=== PATIENT | female | born 1985 | race Caucasian/White ===

== ENCOUNTER 2016-10-10 12:23 | Emergency (ER) | payer SELFPAY ==
[~2016-10-10] VITALS: Ht 154.9 cm; Wt 110.2 kg
[~2016-10-10 12:23] MED LIST: ABILIFY10 MG PO; ACETAMINOPHEN500 M3 PO; AMBIEN 10MG TAB10 MG; AUGMENTIN1 TA1 PO; AUGMENTIN1 TA2 PO; AZITHROMYCIN250 MG PO; BUSPAR 10MG TAB10 MG PO; CIPRO 500MG TA500 MG PO; CIPRO250 MG PO; CLARITHROMYCIN500 MG PO; CLONAZEPAM0.5 M1 PO; DARVOCET-N 1001 EACH PO; DOXYCYCLINE MO100 MG PO; ERY-TAB333 MG PO; FLEXERIL10 MG PO; FLOMAX 0.4MG C0.4 MG PO; FLOMAX0.4 MG PO; HYDROCHLOROTH12.5 M1 PO; HYDROCHLOROTHIA25 M1 PO; HYDROCODONE-APA1 TA1 PO; IBU800 MG PO; IBUPROFEN600 MG PO; KEFLEX 500MG.500 MG PO; KLONOPIN 0.5MG0.5 MG PO; KLONOPIN1 MG PO; LEADER OMEPRAZO20 MG PO; LINDANE TP; LISINOPRIL10 MG PO; LODINE200 MG PO; LORTAB 5/500 501 TAB PO; MACROBID 100MG100 M1 PO; MACROBID 100MG100 MG PO; MACROBID100 M3 PO; MACRODANTIN100 MG PO; MOBIC7.5 MG PO; MOTRIN600 MG PO; NITROFURANTOIN100 M2 PO; NORCO 325 MG-101 TAB PO; NORCO 325 MG-51 TAB PO; PAXIL40 MG PO; PERCOCET 325 MG1 TA3 PO; PERCOCET 5/3251 EACH PO; PERCOCET1 TA1 PO; PERCOCET1 TAB PO; PERCOGESIC EXTR1 TAB PO; PERCOGESIC1 TAB PO; PHENERGAN 25MG.25 M1 PO; PHENERGAN 25MG.25 MG; PHENERGAN25 M3 PO; PROMETHAZINE 2525 MG PR; PROTONIX 40MG T40 MG PO; PROZAC40 MG PO; PYRIDIUM 200MG200 MG PO; PYRIDIUM100 M2 PO; PYRIDIUM200 M2 PO; REMERON30 MG PO; REMERON45 MG PO; SEROQUEL 100MG100 MG PO; TAMSULOSIN HCL0.4 MG PO; TESSALON PERLE100 MG PO; TOPAMAX25 MG PO; TRAMADOL 50MG T50 MG PO; TYLENOL W/CODEI1 TA2 PO; Tramadol HCl50 MG PO; XANAX 0.5MG TA0.5 MG PO; XANAX 1MG TABLET1 MG PO; ZANTAC 150150 MG PO; ZITHROMAX 250M250 MG PO; ZITHROMAX Z PA250 MG PO
--- OUTSIDE RECORDS SUMMARY | 2016-10-10 12:31 | External Medical Summary Rpt ---
Author Author , Organization [employer] Address Unknown Phone Unavailable Care Team Providers Care Car Installations Supervisor Name Role Phone A Kaelyn HERRERA MD PSC, A Unavailable Unavailable Kaelyn HERRERA MD PSC DAVIDSON SHANNON, DAVIDSON Unavailable Unavailable SHANNON LELE MIRANDA Unavailable Unavailable KAEL SOSA MAY, SOSA MAY Unavailable Unavailable BEINEKE MARCIA, BEINEKE Unavailable Unavailable MARCIA FAUSTINO JAM, FAUSTINO JAM Unavailable Unavailable CONNORS, CONNORS Unavailable Unavailable CONNORS ALL, CONNORS ALL Unavailable Unavailable ILANA MON, Unavailable Unavailable ILANA MON HARRINGTON JAM, HARRINGTON JAM Unavailable Unavailable FU CAR, FU Unavailable Unavailable CAR VASQUEZ ALPESH, Unavailable Unavailable VASQUEZ ALPESH VASQUEZ ALPESH, Unavailable Unavailable VASQUEZ ALPESH CELLAROSI - YORBA Unavailable Unavailable PAT, CELLAROSI - YORBA PAT CHESTNUT, CHESTNUT Unavailable Unavailable [facility], Unavailable Unavailable [facility] KAYLA WOLFGANG, Unavailable Unavailable KAYLA WOLFGANG TAM MAT, TAM Unavailable Unavailable MAT FAUGHN BUTTS, FAUGHN Unavailable Unavailable BUTTS LAURA JEAN-BAPTISTE, LAURA Unavailable Unavailable JR AISSATOU LOPEZ, Unavailable Unavailable JR AISSATOU DEAN HERLINDA, HERLINDA Unavailable Unavailable HERLINDA LYNDA, HERLINDA Unavailable Unavailable LYNDA RICK ARTI, RICK Unavailable Unavailable ARTI [facility] Un[facility] YULI RHO, YULI Unavailable Unavailable RHO GUNDUMALLA GOP, Unavailable Unavailable GUNDUMALLA GOP [facility], Unavailable Unavailable [facility], [facility] Unavailable Unavailable HOSPITAL P, [facility] FELTON KOKI, FELTON KOKI Unavailable Unavailable BROWN III KISHA, Unavailable Unavailable BROWN III KISHA [facility], [facility] KILPELA JEA, KILPELA Unavailable Unavailable ЕКАТЕРИНАA KURT ROBERT, Unavailable Unavailable KOSTECORINNA ROB[facility] Un[facility] Unavailable Unavailable [facility], [facility] BRIDGETTE PET, Unavailable Unavailable BRIDGETTE PET MERHAR GAR, MERHAR Unavailable Unavailable GAR SELVIN JR COREY, SELVIN Unavailable Unavailable JR COREY NEELAM SHAYY, NEELAM SHAYY Unavailable Unavailable [facility], Unavailable [facility]available [facility], [facility] PAWPAULA HOWARD, ZEINAB Unavailable Unavailable BAR PRETORIUS RITO, Unavailable Unavailable PRETORIUS RITO SAMEERA QUENTIN, SAMEERA QUENTIN Unavailable Unavailable RENUSCH PHILLIP, RENUSCH Unavailable Unavailable PHILLIP JAGRUTI, JAGRUTI Unavailable Unavailable SADEK MOH, SADEK MOH Unavailable Unavailable SCALF RITO, SCALF RITO Unavailable Unavailable LEVY JERILYN, LEVY Unavailable Unavailable JERILYN SOKAN BAB, SOKAN BAB Unavailable Unavailable SOTINGEANU, Unavailable Unavailable SOTINGEANU SOTINGEANU MARCIA, Unavailable Unavailable SOTINGEANU MARCIA [facility] Unavailable Unavailable [facility] Unavailable Unavailable PHYSICIAN SERVI, [facility], Unavailable Unavailable [facility] WALKER FOR, WALKER Unavailable Unavailable FOR WELLS, WELLS Unavailable Unavailable [facility]LLS SCO, [facility] Unavailable Unavailable SAM BRANDY, SAM BRANDY Unavailable Unavailable ROSAURA BRANDY, ROSAURA Unavailable Unavailable BRANDY FIDENCIO, FIDENCIO Unavailable Unavailable Purpose Continuity of Care Document - 10-01-2014 through 2016 Problems Code Diagnosis DOS Provider Status L50.9 URTICARIA, 09-18-2016 UNSPECIFIED N30.00 ACUTE 09-18-2016 CYSTITIS WITHOUT HEMATURIA R10.32 LEFT LOWER 09-18-2016 [facility] PAIN Z72.0 TOBACCO USE 09-18-2016 Z87.440 PERSONAL 09-18-2016 HISTORY OF URINARY (TRACT) INFECTIONS Z87.442 PERSONAL 09-18-2016 HISTORY OF URINARY CALCULI N3000 ACUTE 09-08-2016 [facility]IS [facility], WITHOUT PLLC HEMATURIA N390 URINARY 09-08-2016 [facility]CT [facility], INFECTION PLLC SITE NOT SPECIFIED R21 RASH AND 09-08-2016 [facility] OTHER [facility], NONSPECIFIC PLL SKIN ERUPTION M54.9 DORSALGIA, 08-20-2016 UNSPECIFIED N39.0 URINARY 08-20-2016 TRACT INFECTION, SITE NOT SPECIFIED R10.31 RIGHT LOWER 08-20-2016 [facility] PAIN R31.9 HEMATURIA, 08-20-2016 UNSPECIFIED N200 CALCULUS OF 08-10-2016 [facility] R1012 LEFT UPPER 08-10-2016 [facility], PAIN PLLC R1032 LEFT LOWER 08-10-2016 [place] [facility] B86 SCABIES 07-04-2016 [facility] N12 TUBULO-INTE 06-08-2016 [facility] RST N EMERGENCY NEPHRITIS PHYS NOT SPEC ACUTE/CHRON R030 ELEVATED 06-03-2016 [facility] BLOOD-PRESS N EMERGENCY URE READING SERV WITHOUT DX HTN R0600 DYSPNEA 06-03-2016 [facility] [place] [facility]PEC[facility] R079 CHEST PAIN 06-03-2016 [facility] [place] UNSPECIFIED [facility]IOLOGY R1013 EPIGASTRIC 06-03-2016 [facility] PAIN N EMERGENCY SERV R112 NAUSEA WITH 06-03-2016 [facility] VOMITING N EMERGENCY UNSPECIFIED SERV I10 ESSENTIAL 06-02-2016 [facility] HYPERTENSIO INC N J40 BRONCHITIS 03-12-2016 A Kaelyn HECK MD PSC SPECIFIED ACUTE OR CHRONIC R05 COUGH 03-12-2016 A Kaelyn HERRERA MD PSC R109 UNSPECIFIED 02-23-2016 A Kaelyn HERRERA ABDOMINAL PSC PAIN E860 DEHYDRATION 02-22-2016 [facility] R1011 RIGHT UPPER 02-22-2016 [facility], PAIN PLL [id number] ELEVATED 02-21-2016 A Kaelyn HERRERA WHITE BLOOD PSC CELL COUNT UNSPECIFIED R1010 UPPER 02-21-2016 A Kaelyn HERRERA ABDOMINAL PSC PAIN UNSPECIFIED R1110 VOMITING 02-21-2016 A Kaelyn HERRERA UNSPECIFIED [facility] I14326 OTHER 02-14-2016 A Kaelyn HERRERA INSTABILITY PSC LEFT ANKLE C69878 PAIN IN 02-14-2016 A Kaelyn HERRERA LEFT KNEE PSC M545 LOW BACK 02-09-2016 A Kaelyn HERRERA PAIN [facility] U45756 PAIN IN 02-09-2016 A Kaelyn HERRERA RIGHT LEG [facility] W67582 PAIN IN 02-09-2016 A Kaelyn HERRERA LEFT LEG [facility] B37463 EFFUSION 02-07-2016 [place] [facility] R03666 PAIN IN 02-07-2016 [place] LEFT [facility] M7989 OTHER 02-07-2016 [place] SPECIFIED MEDICAL SOFT TISSUE IMAGING ASS DISORDERS R300 DYSURIA 02-07-2016 [facility] G8929 OTHER 01-26-2016 A Kaelyn HERRERA CHRONIC PSC PAIN N3090 CYSTITIS 01-19-2016 [place] [facility] U[facility]PECIFIED SERV WITHOUT FOUNDATION HEMATURIA N289 DISORDER OF 01-09-2016 [facility]ATION UNSPECIFIED R000 TACHYCARDIA 01-09-2016 [facility] UNSPECIFIED FOUNDATION D01691 PERSONAL 01-09-2016 [place] [facility] HISTORY OF SERV URINARY FOUNDATION CALCULI N209 URINARY 12-31-2015 [facility] CALCULUS [facility], UNSPECIFIED [facility] K12081 PAIN IN 11-10-2015 [place] RIGHT [facility] [id number] SPRAIN 11-10-2015 [facility] UNSPEC [facility], LIGAMENT PLLC ROGHT ANKLE INITIAL ENC [id number] UNSPECIFIED 11-10-2015 [place] INJURY [facility]ICAL RIGHT ANKLE IMAGING ASS INITIAL ENCOUNTER R319 HEMATURIA 10-07-2015 [facility]PEC[facility], [facility] N8320 UNSPECIFIED 08-05-2015 [facility] OVARIAN N EMERGENCY CYSTS PHYS N8329 OTHER 08-05-2015 [facility] [place] [facility] CYSTS R1031 RIGHT LOWER 08-05-2015 [facility] QUADRANT N EMERGENCY PAIN PHYS R1030 LOWER 08-04-2015 [facility] ABDOMINAL [facility], PAIN PLLC UNSPECIFIED M549 DORSALGIA 06-26-2015 [facility] UNSPECIFIED PHYSICIANS, PLLC R110 NAUSEA 06-26-2015 [facility], [facility] Z720 TOBACCO USE 06-26-2015 [facility] N23 UNSPECIFIED 06-16-2015 [facility] RENAL N EMERGENCY COLIC PHYS Z960 PRESENCE OF 06-16-2015 [facility]OGENITAL COMMUNTI[facility] IMPLANTS HOSPITA N201 CALCULUS OF 05-20-2015 [facility] URETER [facility], [facility] E669 OBESITY 05-17-2015 [facility] UNSPECIFIED N PHYSICIAN SERVI N132 HYDRONEPHRO 05-17-2015 [facility] SIS W/RENAL N PHYSICIAN & [facility]TRL SERVI CALCULOUS OBST N1330 UNSPECIFIED 05-17-2015 [facility] HYDRONEPHRO SIS N3001 ACUTE 05-17-2015 [facility] CYSTITIS N PHYSICIAN WITH SERVI HEMATURIA R6510 SYS INFLM 05-17-2015 [facility] RSPN SYND N PHYSICIAN NON-INF SERVI ORIG NO AC ORGN DYSF Z6841 BODY MASS 05-16-2015 [facility] INDEX BMI COMMUNTIY 40.0-44.9 HOSPITA ADULT J208 ACUTE 04-28-2015 [facility] BRONCHITIS PHYSICIANS, DUE TO PLLC OTHER SPEC ORGANISMS K859 ACUTE 04-05-2015 [facility] PANCREATITI N EMERGENCY S PHYS UNSPECIFIED R9431 ABNORMAL 04-05-2015 [facility] ELECTROCARD COMMUNTIY IOGRAM HOSPITA 5920 CALCULUS OF 02-26-2015 [facility] 5990 URINARY 02-26-2015 [facility] TRACT N EMERGENCY INFECTION PHYS SITE NOT SPECIFIED 45325 NAUSEA 02-26-2015 [facility] ALONE COMMUNTIY HOSPITA 08991 DIARRHEA 02-26-2015 [facility] HOSPITA 89757 ABDOMINAL 02-26-2015 [facility] PAIN RIGHT N EMERGENCY LOWER PHYS QUAD[facility]ANT V1301 PERSONAL 02-26-2015 [facility] CALCULI V1582 PERS HX 02-26-2015 [facility] TOBACCO USE COMMUNTIY PRESENTING HOSPITA [facility] 4019 UNSPECIFIED 02-19-2015 [facility] HYPERTENSIO INC N 5275 SIALOLITHIA 02-19-2015 [facility] SIS PHYSICIANS, PLLC 6202 OTHER AND 02-14-2015 [facility] UNSPECIFIED PHYSICIANS, OVARIAN PLLC CYST 10627 ABDOMINAL 12-11-2014 [place] PAIN OTHER MEDICAL SPECIFIED IMAGING ASS SITE 53357 ABDOMINAL 12-10-2014 [facility] PAIN, LEFT [facility] HOSP LOWER INC QUADRANT 0419 BACTERIAL 11-26-2014 [place] [facility] INFECTION SERV UNSPECIFIED FOUNDATION CCE & UNS SITE 03248 UNSPECIFIED 11-26-2014 [facility] PYELONEPHRI TIS V4579 OTHER 11-26-2014 [facility] ABSENCE OF ORGAN 16054 ABDOMINAL 11-21-2014 [facility] [place] PAIN, RADIOLOGY UNSPECIFIED SITE 87935 ABDOMINAL 11-20-2014 [facility] PAIN, N EMERGENCY PERIUMBILIC PHYS 22274 ABDOMINAL 11-16-2014 [facility] MEDICAL EPIGASTRIC IMAGING ASS 20917 NAUSEA WITH 11-14-2014 [facility]ITING [facility] 5589 OTH&UNSPEC 10-31-2014 [facility] NONINFECTIO PHYSICIANS, PLLC GASTROENTER ITIS&COLITI S 7242 LUMBAGO 10-19-2014 [facility] P 09530 ABDOMINAL 10-19-2014 [facility] PAIN, LEFT [facility] P QUADRANT 5921 CALCULUS OF 10-01-2014 [facility] 7295 PAIN IN 10-01-2014 [facility] SOFT MEDICAL TISSUES OF IMAGING ASS LIMB 8449 SPRAIN&STRA 10-01-2014 [facility] IN OF MEM HOSP UNSPECIFIED INC SITE OF KNEE&LEG 9597 INJURY 10-01-2014 [place] OTHER&UNSPE MEDICAL CIFIED KNEE IMAGING ASS LEG ANKLE&FOOT B86 SCABIES E86.0 DEHYDRATION PER0016 J20.9 ACUTE BRONCHITIS, UNSPECIFIED K11.5 SIALOLITHIA SIS N20.0 CALCULUS OF KIDNEY N20.1 CALCULUS OF URETER N23 UNSPECIFIED RENAL COLIC N83.209 UNSPECIFIED OVARIAN CYST, UNSPECIFIED SIDE R10.9 UNSPECIFIED ABDOMINAL PAIN R11.0 NAUSEA R11.2 NAUSEA WITH VOMITING, UNSPECIFIED R21 RASH AND OTHER NONSPECIFIC SKIN ERUPTION S96.911A STRAIN OF UNSP MSL/TND AT ANK/FT LEVEL, RIGHT FOOT, INIT T14.8 OTHER INJURY OF UNSPECIFIED BODY REGION 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 Allergies, Adverse Reactions, Alerts Clinical Alert Notifications Alert Member has >/= 10 ED visits within the past 365 days Medications Na ND Rx Da Fi Fi Am Da Di Ph RX Ph St me C No te ll ll ou ys ag ar # ys at rm s nt no ma ic us Or Da si cy ia de te s n re d NI 16 04 04 10 5 00 EA Ac TR 71 -0 -[address] ti OF 40 2- 8- 00 00 SI ve UR 43 20 20 48 DE AN 90 17 17 21 TO 1 06 PH IN AR MA MO CY NO -M OF CR CY NT 10 HI 0 AN MG A IN C CY 00 04 04 60 15 00 EA Ac CL 37 -0 -[address] ti OB 80 4- 8- 00 00 SI ve EN 75 20 20 48 DE ZA 11 17 17 23 MI 0 48 PH IN AR E MA 10 CY MG OF CY TA NT BL HI ET AN A IN C MI 65 04 04 60 30 00 EA Ac OM 16 -0 -[address] ti ET 20 4- 8- 00 00 SI ve CAN 52 20 20 48 DE ZI 11 17 17 23 NE 1 79 PH AR 25 MA CY MG OF TA CY BL NT ET HI AN A IN C MI 59 04 04 10 5 00 EA Ac ED 74 -0 -[address] ti NI 60 3- 8- 00 00 SI ve SO 17 20 20 48 DE NE 50 17 17 23 6 18 PH 20 AR MA MG CY TA OF BL CY ET NT HI AN A IN C NI 16 01 02 10 5 00 EA Ac TR 71 -2 -[address] ti OF 40 6- 4- 00 00 SI ve UR 43 20 20 47 DE AN 90 17 17 38 TO 1 36 PH IN AR MA MO CY NO -M OF CR CY NT 10 HI 0 AN MG A IN C SM 49 01 02 60 2 00 EA Ac 34 -2 -[address] ti LI 80 6- 4- 00 00 SI ve CE 15 20 20 47 DE 07 17 17 38 TR 8 35 PH EA AR TM MA EN CY T 1% OF CY CR NT M HI RI AN NS A E IN C CI 16 12 01 14 7 00 EA Ac MI 71 -3 -[address] ti OF 40 0- 7- 00 00 SI ve LO 65 20 20 47 DE XA 20 16 17 07 CI 4 46 PH N AR HC MA L CY 50 0 OF MG CY NT TA HI B AN A IN C ME 00 12 01 12 3 00 EA Ac TO 09 -3 -[address] ti CL 32 0- 7- 00 00 SI ve OP 20 20 20 47 DE RA 30 16 17 07 NV 5 45 PH DE AR MA 10 CY MG OF CY TA NT BL HI ET AN A IN C LE 55 12 01 5. 5 00 EA Ac VO 11 -3 -[address] ti FL 10 0- 7- 0 00 SI ve OX 28 20 20 47 DE AC 13 16 17 08 IN 0 21 PH AR 75 MA 0 CY MG OF TA CY BL NT ET HI AN A IN C Procedures Procedure [place] [address] [facility] ABDOMEN & 7 MEDICAL PELVIS IMAGING W/O ASS CONTRAST MATERIAL ECG 48695 [facility] ROUTINE 6 SAMANTHA ECG EMERGENCY W/LEAST SERV 12 LDS I&R ONLY RADIOLOGI 28612 [facility] [place] FIDENCIO C 6 RADIOLOGY EXAMINATI ON CHEST SINGLE VIEW FRONTAL URINE 52473 [facility] BUSTAMANTE 6 [facility] TEST INC INC VISUAL COLOR CMPRSN METHS URNLS DIP 54852 [facility]USTAMANTE 6 [facility] STICK/TAB INC INC LET REAGENT AUTO MICROSCOP Y CULTURE 16983 [facility] BACTERIAL 6 [facility] INC INC QUANTTATI VE COLONY COUNT URINE UNCLASSIF J3490 [facility] IED DRUGS 6 [facility] HOSP INC INC CT 11-12-201 32954 [facility] [place] BROWN ABDOMEN & 6 RADIOLOGY III KISHA PELVIS W/O CONTRAST MATERIAL OBSERVATI 07723 A Kaelyn MACES SHAYY ON/INPATI 6 JAVIER ROMAN ENT [facility] C[place] [address] [place] [address] [facility]NEZKAYLA ABDOMEN & 6 MEDICAL [facility] PELVIS IMAGING W/O ASS CONTRST 1/> BODY RE THERAPEUT 89571 A Kaelyn RICK IC 6 J[facility]IER [facility] PROPHYLAC PSC TIC/DX INJECTION SUBQ/IM INJECTION J2550 A Kaelyn CHI PROMETHAZ PSC INE HCL UP TO 50 MG URINLS 77705 A C MERLINE DIP 6 JAVIER [facility]I STICK/TAB PSC LET REAGNT NON-AUTO MICRSCPY COMPREHEN 36468 [facility]USTAM[facility]TE SIVE 6 [facility] [place] [address] [facility] BUSTAMANTE AMYLASE 6 [facility] INC INC COLLECTIO 04190 [facility] BUSTAMANTE N VENOUS 6 [facility] [place] [address] [facility] BUSTAMANTE LIPASE 6 [facility] INC INC BLOOD 99298 [facility] BUSTAMANTE COUNT 6 [facility] COMPLETE INC INC AUTO&AUTO DIFRNTL WBC URINLS 15376 A Kaelyn RICK DIP 6 [facility]I STICK/TAB PSC LET REAGNT NON-AUTO [place]CRSCPY [place] ANY 0[address]49 [place] CONNORS ALL JT LOWER 6 MEDICAL EXTREM IMAGING W/[place] [address] DI[facility] BUSTAMANTE RETROPERI 6 [facility] TONEAL INC INC REAL TIME W/[place] [address] [place] CONNORS ALL RETROPERI 6 MEDICAL TONEAL IMAGING REAL TIME ASS W/IMAGE LIMITED THERAPEUT 64396 A Kaelyn RICK IC 6 [facility] CHI PROPHYLAC PSC TIC/DX INJECTION SUBQ/IM BLOOD 89365 A Kaelyn RICK COUNT 6 J[facility]IER CHI COMPLETE PSC AUTO&AUTO DIFRNTL WBC INJECTION J0696 A Kaelyn RICK 6 JAVIER CHI CEFTRIAXO PSC NE SODIUM PER 250 MG URINLS 10537 A C MERLINE DIP 6 J[facility]IER CHI STICK/TAB PSC LET REAGNT NON-AUTO MICRSCPY URINLS 54475 A C MERLINE DIP 6 [facility]I STICK/TAB PSC LET REAGNT NON-AUTO MICRSCPY INJECTION J0696 A Kaelyn RICK 6 JAVIER CHI CEFTRIAXO PSC NE SODIUM PER 250 MG THERAPEUT 79087 A Kaelyn RICK IC 6 J[facility]IER CHI PROPHYLAC PSC TIC/DX INJECTION SUBQ/IM BLOOD 03436 A C MERLINE COUNT 6 JAVIER CHI COMPLETE PSC AUTO&AUTO DIFRNTL WBC THERAPEUT 77208 A C MERLINE IC 6 JAVIER CHI PROPHYLAC PSC TIC/DX INJECTION SUBQ/IM INJECTION J0696 A C MERLINE 6 JAVIER CHI CEFTRIAXO PSC NE SODIUM PER 250 MG SUSCEPTIB 50786 [facility] LTY STDY 6 ROYS ROSY ANTIMICRB HOLDINGS HOLDINGS IAL MICRO/AGA R DILUTJ CUL BACT 77832 [facility] AEROBIC 6 ROSY ROSY ADDL HOLDINGS HOLDINGS METHS DEFINITIV E EA ISOL CULTURE 24095 [facility] JANNA BACTERIAL 6 ROSY ROSY HOLDINGS HOLDINGS QUANTTATI VE COLONY COUNT URINE INJECTION J2550 A C A C 6 JAVIER HERRERA MD PROMETHAZ PSC PSC INE HCL UP TO 50 MG URINLS 22017 A C MERLINE DIP 6 JAVIER CHI STICK/TAB PSC LET REAGNT NON-AUTO MICRSCPY CULTURE 23945 [facility] JANNA BCT 6 ROSY ROSY ISOL&PRSM HOLDINGS HOLD[place] [address] [facility] BUSTAMANTE ABDOMEN & 6 [facility]OS[facility] PELVIS INC INC W/O CONTRAST MATERIAL RADIOLOGI 03782 ROBERT[facility] Art 6 MEDICAL WOLFGANG EXAMINATI IMAGING ON ANKLE ASS 2 VIEWS RADEX 33505 [facility] CONNORS ALL SPINE 6 MEDICAL LUMBOSACR IMAGING AL 2/3 ASS VIEWS RADEX 22542 [facility] BUSTAMANTE SPINE 6 [facility] HOS[facility] LUMBOSACR INC INC AL MINIMUM 4 VIEWS RADEX 24591 [facility] BUSTAM[facility]TE ANKLE 6 [facility]OS[facility] COMPLETE INC INC MINIMUM 3 VIEWS URINLS 22891 A C KILPELA DIP 6 JAVIER ROMAN JEA STICK/TAB PSC LET REAGNT NON-AUTO MICRSCPY RADEX 93015 [place] MERHAR ANKLE 6 MEDICAL GAR COMPLETE SERV MINIMUM 3 FOUNDATIO VIEWS N RADEX 19132 [place] MERHAR FOOT 6 MEDICAL GAR COMPLETE SERV MINIMUM [address] [place] [address] [facility] [place] JAM ABDOMEN & 6 RADIOLOGY PELVIS W/O CONTRAST MATERIAL URINLS 08566 A C RICK DIP 6 JAVIER CHI STICK/TAB [place] [address] [place] PAWLEY RETROPERI 6 MEDICAL BAR TONEAL SERV REAL TIME FOUNDATIO W/[place] [address] [facility] [place] SCALF RITO ABDOMEN & 6 RADIOLOGY PELVIS W/[place] [address] DI[facility] BUSTAMANTE ABDOMEN & 6 [facility]OS[facility] PELVIS INC INC W/O CONTRAST MATERIAL COLLECTIO 79622 [facility] BUSTAMANTE N VENOUS 6 [facility] BLOOD INC INC VENIPUNCT URE BLOOD 76895 [facility] BUSTAMANTE COUNT 6 [facility]OS[facility] COMPLETE INC INC AUTO&AUTO DIFRNTL WBC THER 61597 [facility] BUSTAMANTE PROPH/DX 6 [facility] NJX IV INC INC PUSH SINGLE/1S T SBST/DRUG COMPREHEN 72711 [facility]USTAM[facility]TE SIVE 6 [facility]OS[facility] METABOLIC INC INC PANEL CULTURE 98857 [facility] B[facility] BACTERIAL 6 [facility]OS[facility] INC INC QUANTTATI VE COLONY COUNT URINE THERAPEUT 36657 [facility] B[facility] IC 6 [facility] INJECTION INC INC IV PUSH EACH NEW DRUG UNCLASSIF J3490 [facility] IED DRUGS 6 MEM H[facility]OS[facility] INC INC URNLS DIP 83407 [facility] BUSTAMANTE 6 [facility] STICK/TAB INC [place] [address] ROBERTA GARZA ABDOMEN & 6 MEDICAL WOLFGANG PELVIS IMAGING W/O ASS CONTRAST MATERIAL RADIOLOGI 28647 ROBERT[facility] CONNORS ALL C 6 MEDICAL EXAMINATI IMAGING ON [place] [address] [place] [address] ROBERTA YOUNG ABDOMEN & 6 MEDICAL MARCIA PELVIS IMAG[place] [address] [facility] [place] YULI ABDOMEN & 6 RADIOLOGY RHO PELVIS W/[place] [address] [facility] [place] FU ABDOMEN & 6 RADIOLOGY CAR PELVIS W/O CONTRAST MATERIAL BLOOD 28706 [facility] BUSTAMANTE COUNT 6 [facility] COMPLETE INC INC AUTO&AUTO DIFRNTL WBC COLLECTIO 04114 [facility] BUSTAMANTE N VENOUS 6 [facility]OSP BLOOD INC INC VENIPUNCT URE THERAPEUT 19149 [facility] BUSTAMANTE IC 6 [facility]OS[facility] PROPHYLAC INC INC TIC/DX INJECTION SUBQ/IM UNCLASSIF J3490 [facility] BUSTAMANTE IED DRUGS 6 [facility]OS[facility] INC INC BASIC 68294 [facility] BUSTAMANTE METABOLIC 6 [facility] PANEL INC INC CALCIUM TOTAL URINE 39922 [facility] 6 N N TEST COMMUNTIY COMMUNTIY VISUAL HOSPITA [place] [address] [facility] INFUSION 6 N N THERAPY/P COMMUNTIY COMMUNTIY ROPHYLAXI HOSPITA HOSPITA S /DX 1ST TO 1 HR THERAPEUT 74289 [facility] IC 6 N N INJECTION COMMUNTIY COMMUNTIY IV PUSH HOSPITA HOSPITA EACH NEW DRUG URNLS DIP 48243 [facility] 6 N N STICK/TAB COMMUNTIY COMMUNTIY LET HOSPITA [place] [address] [facility] INFUSION 6 N N THER COMMUNTIY COMMUNTIY PROPH HOSPITA HOSPITA ADDL [place]ENT[place] L [place] 1 [place] [address] [facility] INFUSION 6 N N HYDRATION COMMUNTIY COMMUNTIY EACH HOSPITA HOSPITA ADDITIONA L HOUR SUSCEPTIB 53717 [facility] LTY STDY 6 N N ANTIMICRB COMMUNTIY COMMUNTIY IAL HOSPITA HOSPITA MICRO/AGA R DILUTJ CULTURE 84845 [facility] BACTERIAL 6 N N COMMUNTIY COMMUNTIY QUANTTATI HOSPITA HOSPITA VE COLONY COUNT URINE CUL BACT 90955 [facility] AEROBIC 6 N N ADDL COMMUNTIY COMMUNTIY METHS HOSPITA HOSPITA DEFINITIV E EA ISOL COMPREHEN 02590 [facility] SIVE 6 N N METABOLIC COMMUNTIY COMMUNTIY PANEL HOSPITA HOSPITA COLLECTIO 46252 [facility] N VENOUS 6 N N BLOOD COMMUNTIY COMMUNTI[place] [address] [facility] ABDOMEN & 6 N N PELVIS COMMUNTIY COMMUNTIY W/O HOSPITA HOSPITA CONTRAST MATERIAL BLOOD 10649 [facility] COUNT 6 N N COMPLETE COMMUNTIY COMMUNTIY AUTO&AUTO HOSPITA HOSPITA DIFRNTL WBC BLOOD 40957 [facility] COUNT 5 N N COMPLETE COMMUNTIY COMMUNTIY AUTO&AUTO HOSPITA HOSPITA DIFRNTL WBC COLLECTIO 55648 [facility] N VENOUS 5 N N BLOOD COMMUNTIY COMMUNTIY VENIPUNCT HOSPITA HOSPITA URE INJECTION [id number] [facility] 5 N N PROMETHAZ COMMUNTIY COMMUNTIY INE HCL HOSPITA HOSPITA UP TO 50 MG COMPREHEN 51373 [facility] SIVE 5 N N METABOLIC COMMUNTIY COMMUNTIY PANEL HOSPITA HOSPITA CULTURE 00817 [facility] BACTERIAL 5 N N COMMUNTIY COMMUNTIY QUANTTATI HOSPITA HOSPITA VE COLONY COUNT URINE INJECTION [id number] [facility] MORPHINE 5 N N SULFATE COMMUNTIY COMMUNTIY UP TO [place] [address] [facility] LIPASE 5 N N [place] [address] [facility] INFUSION 5 N N HYDRATION COMMUNTIY COMMUNTIY EACH HOSPITA HOSPITA ADDITIONA L HOUR URNLS DIP 68850 [facility] 5 N N STICK/TAB COMMUNTIY COMMUNTIY LET HOSPITA HOSPITA REAGENT AUTO MICROSCOP Y THERAPEUT 28237 [facility] IC 5 N N INJECTION COMMUNTIY COMMUNTIY IV [place] [address] [facility] INFUSION 5 N N THERAPY/P COMMUNTIY COMMUNTIY ROPHYLAXI HOSPITA HOSPITA S /DX 1ST TO 1 HR THER 19938 [facility] PROPH/DX 5 N N NJX EA COMMUNTIY COMMUNTIY SEQL IV HOSPITA HOSPITA PUSH SBST/DRUG FAC RADEX 60584 [facility] ABDOMEN 1 5 MEM [facility] INC ANTEROPOS TERIOR VIEW INJECTION J2001 [facility] 5 N N LIDOCAINE COMMUNTIY COMMUNTIY HCL HOSPITA HOSPITA INTRAVENO US INFUS 10 MG BLOOD 91125 [facility] COUNT 5 N N HEMOGLOBI COMMUNTIY COMMUNTIY N HOSPITA HOSPITA PROTHROMB 48310 [facility] IN TIME 5 N N COMMUNTIY COMMUNTIY HOSPITA HOSPITA INJECTION J1100 [facility] 5 N N DEXAMETHO COMMUNTIY COMMUNTIY SONE HOSPITA HOSPITA SODIUM PHOSPHATE 1 MG INJECTION [id number] [facility] 5 N N HYDROMORP COMMUNTIY COMMUNTIY RON UP HOSPITA HOSPITA TO 4 MG BLOOD 07741 [facility] COUNT 5 N N HEMATOCRI COMMUNTIY COMMUNTIY T HOSPITA HOSPITA INJ J2543 [facility] PIPERACIL 5 N N MEGHAN COMMUNTIY COMMUNTIY SOD/TAZOB HOSPITA HOSPITA ACTAM SOD 1 G/0.125 G COLLECTIO 98695 [facility] N VENOUS 5 N N BLOOD COMMUNTIY COMMUNTIY VENIPUNCT HOSPITA HOSPITA URE INJECTION J2550 [facility] 5 N N PROMETHAZ COMMUNTIY COMMUNTIY INE HCL HOSPITA HOSPITA UP TO 50 MG THER 32154 [facility] PROPH/DX 5 N N NJX EA COMMUNTIY COMMUNTIY SEQL IV HOSPITA HOSPITA PUSH SBST/DRUG FAC OBSERVATI 91392 [facility] ON CARE 5 SAMANTHA A GOP DISCHARGE PHYSICIAN SERVI MANAGEMEN T BASIC 79694 [facility] METABOLIC 5 N N PANEL COMMUNTIY COMMUNTIY CALCIUM HOSPITA HOSPITA TOTAL INJECTION J2704 [facility] PROPOFOL 5 N N 10 MG COMMUNTIY COMMUNTIY HOSPITA HOSPITA SBSQ 57276 [facility] OBSERVATI 5 SAMANTHA A GOP ON PHYSICIAN CARE/DAY SERVI 35 MINUTES INFUSION J7030 [facility] NORMAL 5 N N SALINE COMMUNTIY COMMUNTIY SOLUTION HOSPITA HOSPITA 1000 [place] [address] [facility] INFUSION 5 N N THERAPY/P COMMUNTIY COMMUNTIY ROPHYLAXI HOSPITA HOSPITA S /DX 1ST TO 1 HR URNLS DIP 21809 [facility] 5 N N STICK/TAB COMMUNTIY COMMUNTIY LET HOSPITA HOSPITA REAGENT AUTO MICROSCOP Y CALCULUS 08392 [facility] QUANTITAT 5 N N DEVYN COMMUNTIY COMMUNTIY CHEMICAL HOSPITA HOSPITA CULTURE 12043 [facility] BACTERIAL 5 N N COMMUNTIY COMMUNTIY QUANTTATI HOSPITA HOSPITA VE COLONY COUNT URINE ANES 45487 [place] [facility] TRURL 5 ANESTHESI JERILYN FRAGMNTJ A GROUP MANJ&/RMV PS L URETERAL CALCULUS COMPREHEN 41149 [facility] SIVE 5 N N METABOLIC COMMUNTIY COMMUNTIY PANEL HOSPITA HOSPITA TOBACCO 26799 [facility] USE 5 N N CESSATION COMMUNTIY COMMUNTIY HOSPITA HOSPITA INTERMEDI ATE 3-10 MINUTES STENT C2617 [facility] NON-COR 5 N N TEMPORARY COMMUNTIY COMMUNTIY WITHOUT HOSPITA HOSPITA DELIVERY SYSTEM THER 92790 [facility] PROPH/DX 5 N N NJX EA COMMUNTIY COMMUNTIY SEQL IV HOSPITA HOSPITA PUSH SBST/DRUG FAC URINE 74817 [facility] 5 N N TEST COMMUNTIY COMMUNTIY VISUAL HOSPITA HOSPITA COLOR CMPRSN METHS CYSTO 69474 [facility] W/URETERO 5 N N SCOPY COMMUNTIY COMMUNTIY W/RMVL/[place] [address] [facility] [place] [facility] ABDOMEN & 5 RADIOLOGY PELVIS W/O CONTRAST MATERIAL COLLECTIO 04824 [facility] N VENOUS 5 N N BLOOD COMMUNTIY COMMUNTIY VENIPUNCT HOSPITA HOSPITA URE INJ J2543 [facility] PIPERACIL 5 N N MEGHAN COMMUNTIY COMMUNTIY SOD/TAZOB HOSPITA HOSPITA ACTAM SOD 1 G/0.125 G DILATION 43923 [facility] VASQUEZ NEPHROSTO 5 ALPESH ALPESH MY/URETER /URETHRA RS&I INJECTION J1170 [facility] 5 N N HYDROMORP COMMUNTIY COMMUNTIY RON UP HOSPITA HOSPITA TO 4 MG CYSTO 24168 [facility] W/INSERT 5 N N URETERAL COMMUNTIY COMMUNTIY STENT HOSPITA HOSPITA RINGERS J7120 [facility] LACTATE 5 N N INFUSION COMMUNTIY COMMUNTIY UP TO HOSPITA HOSPITA 1000 CC BLOOD 35137 [facility] COUNT 5 N N COMPLETE COMMUNTIY COMMUNTIY AUTO&AUTO HOSPITA HOSPITA DIFRNTL WBC INJECTION J0696 [facility] 5 N N CEFTRIAXO COMMUNTIY COMMUNTIY NE SODIUM HOSPITA HOSPITA PER 250 MG GUIDE C1769 [facility] WIRE 5 N N COMMUNTIY COMMUNTIY HOSPITA HOSPITA INJECTION J2550 [facility] 5 N N PROMETHAZ COMMUNTIY COMMUNTIY INE HCL HOSPITA HOSPITA UP TO 50 MG INJECTION J2550 [facility] 5 N N PROMETHAZ COMMUNTIY COMMUNTIY INE HCL HOSPITA HOSPITA UP TO 50 MG THROMBOPL 45359 [facility] ASTIN 5 N N TIME COMMUNTIY COMMUNTIY PARTIAL HOSPITA HOSPITA PLASMA/WH OLE BLOOD THERAPEUT 10421 [facility] IC 5 N N PROPHYLAC COMMUNTIY COMMUNTIY TIC/DX HOSPITA HOSPITA INJECTION SUBQ/IM CULTURE 89576 [facility] BACTERIAL 5 N N BLOOD COMMUNTIY COMMUNTIY AEROBIC HOSPITA HOSPITA W/ID ISOLATES BLOOD 25555 [facility] COUNT 5 N N COMPLETE COMMUNTIY COMMUNTIY AUTO&AUTO HOSPITA HOSPITA DIFRNTL WBC INTRODUCT 73656 [facility] ION 5 SAMANTHA JERILYN NEEDLE/IN EMERGENCY TRACATHET PHYS ER VEIN INJECTION J1170 [facility] 5 N N HYDROMORP COMMUNTIY COMMUNTIY RON UP HOSPITA HOSPITA TO 4 MG INJ J2543 [facility] PIPERACIL 5 N N MEGHAN COMMUNTIY COMMUNTIY SOD/TAZOB HOSPITA HOSPITA ACTAM SOD 1 G/0.125 G COLLECTIO 55800 [facility] N VENOUS 5 N N BLOOD COMMUNTIY COMMUNTIY [place] [address] [place] ABDOMEN & 5 MED[facility] [place] PELVIS IMAGING W/O ASS CONTRAST MATERIAL THER 54730 [facility] PROPH/DX 5 N N NJX EA COMMUNTIY COMMUNTIY SEQL IV HOSPITA HOSPITA PUSH SBST/DRUG FAC INFUSION J7030 [facility] NORMAL 5 N N SALINE COMMUNTIY COMMUNTIY SOLUTION HOSPITA HOSPITA 1000 CC COMPREHEN 07277 [facility] SIVE 5 N N METABOLIC COMMUNTIY COMMUNTIY PANEL HOSPITA HOSPITA INITIAL 79807 [facility] OBSERVATI 5 SAMANTHA A GOP ON PHYSICIAN CARE/DAY SERVI 70 MINUTES CULTURE 20787 [facility] BACTERIAL 5 N N COMMUNTIY COMMUNTIY QUANTTATI HOSPITA HOSPITA VE COLONY COUNT URINE INJECTION J2270 [facility] MORPHINE 5 N N SULFATE COMMUNTIY COMMUNTIY UP TO 10 HOSPITA HOSPITA MG URNLS DIP 79785 [facility] 5 N N STICK/TAB COMMUNTIY COMMUNTIY LET HOSPITA HOSPITA REAGENT AUTO MICROSCOP Y THERAPEUT 34379 [facility] IC 5 N N INJECTION COMMUNTIY COMMUNTIY IV PUSH HOSPITA [facility] G0378 [facility] OBSERVATI 5 N N ON COMMUNTIY COMMUNTIY SERVICE HOSPITA HOSPITA PER HOUR URNLS DIP 36938 DIANNA BUSTAMANTE 5 [facility] STICK/TAB INC INC LET REAGENT AUTO MICROSCOP Y URINE 81799 DIANNA BUSTAMANTE 5 [facility] TEST INC INC VISUAL COLOR CMPRSN METHS CULTURE 86834 DIANNA BUSTAMANTE BACTERIAL 5 [facility] INC INC QUANTTATI VE COLONY COUNT URINE UNCLASSIF J3490 DIANNA BUSTAMANTE IED DRUGS 5 [facility] INC INC INFUSION J7030 [facility] NORMAL 5 N N SALINE COMMUNTIY COMMUNTIY SOLUTION HOSPITA HOSPITA 1000 CC THERAPEUT 45190 [facility] IC 5 N N INJECTION COMMUNTIY COMMUNTIY IV PUSH [place] [address] [facility] INFUSION 5 N N THERAPY/P COMMUNTIY COMMUNTIY ROPHYLAXI HOSPITA HOSPITA S /DX 1ST TO 1 HR URNLS DIP 82352 [facility] 5 N N STICK/TAB COMMUNTIY COMMUNTIY LET HOSPITA [place] [address] [facility] INFUSION 5 N N HYDRATION COMMUNTIY COMMUNTIY EACH HOSPITA HOSPITA ADDITIONA L HOUR URINE 26434 [facility] 5 N N TEST COMMUNTIY COMMUNTIY VISUAL HOSPITA HOSPITA COLOR CMPRSN METHS CULTURE 63801 [facility] BACTERIAL 5 N N COMMUNTIY COMMUNTIY QUANTTATI HOSPITA HOSPITA VE COLONY COUNT URINE BLOOD 45455 [facility] COUNT 5 N N SMEAR COMMUNTIY COMMUNTIY MCRSCP HOSPITA HOSPITA W/MNL DIFRNTL WBC COUNT COMPREHEN 78624 [facility] SIVE 5 N N METABOLIC COMMUNTIY COMMUNTIY PANEL HOSPITA HOSPITA BLOOD 08737 [facility] COUNT 5 N N COMPLETE COMMUNTIY COMMUNTIY [place] [address] [facility] LIPASE 5 N N COMMUNTIY COMMUNTIY HOSPITA HOSPITA INJECTION J2270 [facility] MORPHINE 5 N N SULFATE COMMUNTIY COMMUNTIY UP TO 10 HOSPITA HOSPITA MG COLLECTIO 12320 [facility] N VENOUS 5 N N BLOOD COMMUNTIY COMMUNTIY VENIPUNCT HOSPITA HOSPITA URE INJECTION J2550 [facility] 5 N N PROMETHAZ COMMUNTIY COMMUNTIY INE HCL HOSPITA HOSPITA UP TO 50 MG ECG 67286 [facility] ROUTINE 5 N N ECG COMMUNTIY COMMUNTIY W/LEAST HOSPITA HOSPITA 12 LDS TRCG ONLY W/O I&R ECG 38748 [facility] ROUTINE 5 SAMANTHA - YORBA ECG EMERGENCY PAT W/LEAST PHYS 12 LDS I&R ONLY BLOOD 77449 [facility] COUNT 5 N N COMPLETE COMMUNTIY COMMUNTIY AUTO&AUTO HOSPITA HOSPITA DIFRNTL WBC COLLECTIO 44979 [facility] N VENOUS 5 N N BLOOD COMMUNTIY COMMUNTI[place] [address] [facility] ABDOMEN & 5 N N PELVIS COMMUNTIY COMMUNTIY W/O HOSPITA HOSPITA CONTRAST MATERIAL INJECTION J2270 [facility] MORPHINE 5 N N SULFATE COMMUNTIY COMMUNTIY UP TO 10 HOSPITA HOSPITA MG THER 74712 [facility] PROPH/DX 5 N N NJX IV COMMUNTIY COMMUNTIY PUSH HOSPITA HOSPITA SINGLE/1S T SBST/[place] [address] [facility] LIPASE 5 N N COMMUNTIY COMMUNTIY HOSPITA HOSPITA COMPREHEN 79347 [facility] SIVE 5 N N METABOLIC COMMUNTIY COMMUNTIY PANEL HOSPITA HOSPITA CULTURE 29668 [facility] BACTERIAL 5 N N COMMUNTIY COMMUNTIY QUANTTATI HOSPITA HOSPITA VE COLONY COUNT URINE URINE 71296 [facility] 5 N N TEST COMMUNTIY COMMUNTIY VISUAL HOSP[place] [address] [facility] INFUSION 5 N N HYDRATION COMMUNTIY COMMUNTIY EACH HOSPITA HOSPITA ADDITIONA L HOUR URNLS DIP 33034 [facility] 5 N N STICK/TAB COMMUNTIY COMMUNTIY LET HOSPITA HOSPITA REAGENT AUTO MICROSCOP Y INFUSION J7030 [facility] NORMAL 5 N N SALINE COMMUNTIY COMMUNTIY SOLUTION HOSPITA HOSPITA 1000 CC UNCLASSIF J3490 DIANNA BUSTAMANTE IED DRUGS 5 [place] [address] DIANNA BUSTAMANTE AMYLASE 5 [facility] INC INC COMPREHEN 28169 DIAN[facility] BUSTAMANTE SIVE 5 [facility] [address] DIANNA BUSTAMANTE LIPASE 5 [facility] INC INC BLOOD 03757 [facility] BUSTAMANTE COUNT 5 [facility] COMPLETE INC INC AUTO&[place] [address] [place] ABDOMEN & 5 [facility] [place] PELVIS IMAGING W/O ASS CONTRAST MATERIAL URNLS DIP 24436 [facility]USTAMANTE 5 [facility] STICK/TAB INC INC LET REAGENT AUTO MICROSCOP Y CULTURE 02688 [facility] BUSTAMANTE BACTERIAL 5 [facility] INC INC QUANTTATI VE COLONY COUNT URINE URINE 07937 [facility] BUSTAMANTE 5 [facility] TEST INC INC VISUAL COLOR CMPRSN METHS UNCLASSIF J3490 DIANNA BUSTAMANTE IED DRUGS 5 [facility] INC INC BLOOD 49270 [facility] BUSTAMANTE COUNT 5 [facility] COMPLETE INC INC AUTO&[place] [address] DIANNA BUSTAMANTE LIPASE 5 [facility] INC INC COMPREHEN 89448 [facility] BUSTAMANTE SIVE 5 [facility] METABOLIC INC INC PANEL COLLECTIO 47200 DIANNA BUSTAMANTE N VENOUS 5 [facility] BLOOD INC INC VENIPUNCT URE URNLS DIP 84800 DIANNA BUSTAMANTE 5 [facility] STICK/TAB INC INC LET REAGENT AUTO MICROSCOP Y URINE 97378 DIANNA BUSTAMANTE 5 [facility] TEST INC [place] [address] [facility] ABDOMEN & 5 MEDICAL [place] PELVIS IMAGING W/O ASS CONTRAST MATERIAL URINE 68168 DI[facility] BUSTAMANTE 5 [facility] TEST INC INC VISUAL COLOR CMPRSN METHS URNLS DIP 85487 [facility] BUSTAMANTE 5 [facility] STICK/TAB INC INC LET REAGENT AUTO MICROSCOP Y INJECTION J1200 [facility] 5 Y Y DIPHENHYD [facility] RAMINE HCL UP TO 50 MG INJECTION J1956 [facility] 5 Y Y LEVOFLOXA [facility] LETY 250 MG INJECTION J2270 [facility] MORPHINE 5 Y Y SULFATE [facility] UP TO 10 MG INJECTION J2270 [facility] MORPHINE 5 Y Y SULFATE [facility] UP [place] [address] [place] [address] [facility] LIPASE 5 Y Y [facility] BLOOD 27095 [facility] COUNT 5 Y Y COMPLETE [facility] AUTOMATED COMPREHEN 14457 [facility] SIVE 5 Y Y METABOLIC [facility] PANEL INJECTION J2765 [facility] 5 Y Y METOCLOPR [facility] AMIDE HCL UP TO 10 MG INFUSION J7030 [facility] NORMAL 5 Y Y SALINE [facility] SOLUTION [address] [place] [address] [facility] INFUSION 5 Y Y THERAPY/P [facility] ROPHYLAXI S /DX 1ST TO 1 HR THERAPEUT 66030 [facility] IC 5 Y Y INJECTION [facility] IV PUSH EACH NEW DRUG URNLS DIP 05346 [facility] 5 Y Y STICK/TAB [facility] LET REAGENT AUTO MICROSCOP Y URINE 77651 [facility] 5 Y Y TEST [facility] VISUAL COLOR CMPRSN METHS THER 88687 [facility] PROPH/DX 5 Y Y NJX EA [facility] SEQL IV PUSH SBST/[place] [address] [facility] ABDOMEN & 5 RADIOLOGY ROBERT PELVIS W/[place] [address] DIANNA BUSTAMANTE ABDOMEN & 5 [facility] PELVIS INC INC W/O CONTRAST MATERIAL PROTHROMB 42296 DIANNA BUSTAMANTE IN TIME 5 [facility] INC INC BLOOD 38333 DIANNA BUSTAMANTE COUNT 5 [facility] COMPLETE INC INC AUTO&[place] [address] DIANNA BUSTAMANTE LIPASE 5 [facility] INC INC THROMBOPL 90110 DIANNA BUSTAMANTE ASTIN 5 [facility] TIME INC INC PARTIAL PLASMA/WH OLE BLOOD CULTURE 34663 DIANNA BUSTAMANTE BACTERIAL 5 [facility] INC INC QUANTTATI VE COLONY COUNT URINE COMPREHEN 95719 DIANNA BUSTAMANTE SIVE 5 [facility] [place] [address] DIANNA BUSTAMANTE AMYLASE 5 [facility] INC INC URNLS DIP 00910 DI[facility] BUSTAMANTE 5 [facility] STICK/TAB INC INC LET REAGENT AUTO MICROSCOP Y THERAPEUT 42263 DIAN[facility] BUSTAMANTE IC 5 [facility] INJECTION INC [place] [address] DIANNA BUSTAMANTE INFUSION 5 [facility] THERAPY/P INC INC ROPHYLAXI S /DX 1ST TO 1 HR UNCLASSIF J3490 DIANNA BUSTAMANTE IED DRUGS 5 [facility] INC INC LOCM Q9967 [facility] 300-399 5 N N MG/ML COMMUNTIY COMMUNTIY IODINE HOSPITA HOSPITA CONCENTRA TION PER ML THERAPEUT 16571 [facility] IC 5 N N INJECTION COMMUNTIY COMMUNTIY IV PUSH HOSPITA HOSPITA EACH NEW DRUG INJECTION J2270 [facility] MORPHINE 5 N N SULFATE COMMUNTIY COMMUNTIY UP TO 10 HOSPITA HOSPITA MG URNLS DIP 48858 [facility] 5 N N STICK/TAB COMMUNTIY COMMUNTIY LET HOSPITA HOSPITA [place] [address] [facility] AMYLASE 5 N N COMMUNTIY COMMUNTIY HOSPITA HOSPITA URINE 74136 [facility] 5 N N TEST COMMUNTIY COMMUNTIY VISUAL HOSPITA HOSPITA COLOR CMPRSN METHS INJECTION J2550 [facility] 5 N N PROMETHAZ COMMUNTIY COMMUNTIY INE HCL HOSPITA HOSPITA UP TO 50 MG COMPREHEN 21949 [facility] SIVE 5 N N METABOLIC COMMUNTIY COMMUNTIY PANEL HOSPITA HOSPITA CULTURE 43462 [facility] BACTERIAL 5 N N COMMUNTIY COMMUNTIY QUANTTATI HOSPITA [place] [address] [facility] LIPASE 5 N N COMMUNTIY COMMUNTIY HOSPITA HOSPITA BLOOD 18611 [facility] COUNT 5 N N COMPLETE COMMUNTIY COMMUNTIY AUTO&[place] [address] [facility] ABDOMEN & 5 N N PELVIS COMMUNTIY COMMUNTIY W/CONTRAS HOSPITA HOSPITA T MATERIAL BLOOD 35828 DIANNA PALACIOSON COUNT 5 [facility] COMPLETE INC INC AUTO&[place] [address] DIANNA PALACIOSON LIPASE 5 [facility] INC INC CULTURE 29725 DIANNA PALACIOSON BACTERIAL 5 [facility] INC INC QUANTTATI VE COLONY COUNT URINE COMPREHEN 79791 DIANNA BUSTAMANTE SIVE 5 [facility] METABOLIC INC INC PANEL URINE 91424 DI[facility] BUSTAMANTE 5 [facility] TEST INC INC [place] [address] DIANNA BUSTAMANTE AMYLASE 5 [facility] INC INC URNLS DIP 73518 DIANNA BUSTAMANTE 5 [facility] STICK/TAB INC INC LET REAGENT AUTO MICROSCOP Y UNCLASSIF J3490 DIANNA PALACIOSON IED DRUGS 5 [facility] INC INC UNCLASSIF J3490 DIANNA BUSTAMANTE IED DRUGS 5 [facility] INC INC URNLS DIP 83962 DI[facility] BUSTAMANTE 5 [facility] STICK/TAB INC INC LET REAGENT AUTO MICROSCOP Y URINE 34628 DI[facility] BUSTAMANTE 5 [facility] TEST INC [place] [address] [facility] ABDOMEN & 5 MEDICAL PELVIS IMAGING W/O ASS CONTRAST MATERIAL THER 09745 DIANNA BUSTAMANTE PROPH/DX 5 [facility] NJX IV INC INC PUSH SINGLE/1S T SBST/DRUG UNCLASSIF J3490 DIANNA BUSTAMANTE IED DRUGS 5 [facility] INC INC THERAPEUT 97800 DIANNA PALACIOSON IC 5 [facility] INJECTION INC INC IV PUSH EACH NEW DRUG RADIOLOGI 62021 [facility] C 5 MEDICAL [place] EXAMINATI IMAGING ON TIBIA ASS & [place] [address] [place] [address] [facility] ABDOMEN & 5 [facility] [place] PELVIS IMAGING W/O ASS CONTRAST MATERIAL Encounters Encounter Start End Date Code Location Performer Type Date EMERGENCY 25792 LÁZARO PATE 7 7 PHYSICIAN DEPARTMEN S, [facility] T VISIT HIGH/URGE NT SEVERITY EMERGENCY 18005 DANNY CHAND 7 7 SAMANTHA DEPARTMEN EMERGENCY T VISIT PHYS HIGH/URGE NT SEVERITY EMERGENCY 75168 LÁZARO [facility] DEPT 7 7 PHYSICIAN U VISIT S, PLLC HIGH SEVERITY& THREAT FUNCJ EMERGENCY 01515 LÁZARO PATE 7 7 PHYSIC[facility] VIS[facility] HIGH/URGE NT SEVERITY EMERGENCY 79058 [facility] 6 6 SAMANTHA DEPARTMEN EMERGENCY T VISIT PHYS HIGH/URGE NT SEVERITY EMERGENCY 77681 [facility] DEPT 6 6 SAMANTHA VISIT EMERGENCY HIGH SERV SEVERITY& THREAT FUNCJ EMERGENCY 69739 LÁZARO [place] 6 6 PHYSICIAN U DEPARTMEN S, PLLC T VISIT HIGH/URGE NT SEVERITY HOSPITAL DI[facility]NA - 6 6 [facility] OUTPATIEN INC T EMERGENCY 92816 DIANNA 6 6 [facility] T VISIT LIMITED/M INOR PROB EMERGENCY 33797 [facility] DEPT 6 6 SAMANTHA SCO VISIT EMERGENCY HIGH PHYS SEVERITY& THREAT FUNCJ OFFICE 59230 A C NEELAM LUCAS OUTPATIEN 6 6 JAVIER ROMAN T VISIT PSC 15 MINUTES EMERGENCY 16023 LÁZARO [facility] DEPT 6 6 PHYSICIAN U MARCIA VISIT S, PLLC HIGH SEVERITY& THREAT FUNCJ OFFICE 78118 A C MERLINE OUTPATIEN 6 6 JAVIER [facility] T VISIT PSC 15 MINUTES OFFICE 92764 A C MERLINE OUTPATIEN 6 6 JAVIER [facility] T VISIT PSC 15 MINUTES [facility] - 6 6 [facility] INC T OFFICE 21309 A C MERLINE OUTPATIEN 6 6 JAVIER [facility]I T VISIT PSC 15 MINUTES OFFICE 71389 A Kaelyn ROSAELS OUTPATIDAVIDA 6 6 JAVIER LOGAN T VISIT PSC 15 MINUTES OFFICE 84377 A C MERLINE OUTPATIEN 6 6 JAVIER [facility] T VISIT PSC 15 MINUTES HOSPITAL DIANNA - 6 6 [facility] OUT[facility]IEN INC T OFFICE 97827 A C MERLINE OUTPATIEN 6 6 JAVIER [facility]I T VISIT PSC 15 MINUTES OFFICE 81077 A C MERLINE OUTPATIEN 6 6 JAVIER [facility]I T VISIT PSC 15 MINUTES OFFICE 25996 A C MERLINE OUTPATIEN 6 6 JAVIER [facility]I T VISIT PSC 15 MINUTES EMERGENCY 44463 LÁZARO PATE 6 6 PHYSICIAN LYNDA DEPARTMEN , [facility] T VISIT HIGH/URGE NT SEVERITY HOSPITAL DIANNA - 6 6 [facility] OUTPATIEN INC T HOSPITAL DIANNA [facility] 6 6 [facility] OUTPATIEN [facility] T OFFICE 66328 A C CONNIE OUTPATIEN 6 6 JAVIER LOGAN T VISIT PSC 25 MINUTES OFFICE 37576 A C MERLINE OUTPATIEN 6 6 JAVIER [facility]I T VISIT PSC 15 MINUTES EMERGENCY 61275 [facility] 6 6 SAMANTHA DEPARTMEN EMERGENCY T VISIT PHYS HIGH/URGE NT SEVERITY EMERGENCY 52844 JOCY BRASHER QUENTIN 6 6 MEDICAL DEPARTMEN SERV T VISIT FOUNDATIO MODERATE N SEVERITY OFFICE 33565 A C MERLINE OUTPATIEN 6 6 JAVIER Lewis NEW 30 PSC MINUTES EMERGENCY 33175 JOCY TAM 6 6 MEDICAL MAT DEPARTMEN SERV T VISIT FOUNDATIO HIGH/URGE N NT SEVERITY EMERGENCY 80869 [facility] 6 6 SAMANTHA DEPARTMEN EMERGENCY T VISIT PHYS HIGH/URGE NT SEVERITY HOSPITAL DIANNA - 6 6 [facility] OUTPATIEN INC T EMERGENCY 92997 DIANNA 6 6 [facility] DEPARTMEN INC T VISIT HIGH/URGE NT SEVERITY EMERGENCY 85048 LÁZARO PATE DEPT 6 6 PHYSICIAN LYNDA VISIT S, PLLC HIGH SEVERITY& THREAT FUNCJ EMERGENCY 55355 LÁZARO WALTON 6 6 PHYSICIAN U MARCIA [facility] VIS[facility] MODERATE SEVERITY EMERGENCY 67373 [facility] ROSALES SCO 6 6 SAMANTHA [facility] EMERGENCY T VISIT SERV HIGH/URGE NT SEVERITY EMERGENCY 77745 LÁZARO PATE 6 6 PHYSICIAN [facility] S [facility] T VISIT HIGH/URGE NT SEVERITY EMERGENCY 89811 LÁZARO WALTON 6 6 PHYSICIAN U MARCIA [facility] T VISIT MODERATE SEVERITY EMERGENCY 81609 LÁZARO PATE 6 6 PHYSICIAN [facility] T VISIT HIGH/URGE NT SEVERITY EMERGENCY 37718 LÁZARO HOWELL 6 6 [facility] T VISIT HIGH/URGE NT SEVERITY EMERGENCY 75618 DANNY MARTHE [facility] 6 [address] [facility] EMERGENCY T VISIT PHYS HIGH/URGE NT SEVERITY EMERGENCY 08243 LÁZARO CHACON DEPT 6 6 PHYSICIAN FOR VISIT S [facility] HIGH SEVERITY& THREAT FUNCJ EMERGENCY 99178 LÁZARO PATE 6 6 PHYSICIAN [facility] S [facility] T VISIT HIGH/URGE NT SEVERITY EMERGENCY 49502 [facility] EMERGENC[facility] T VISIT PHYS HIGH/URGE NT SEVERITY EMERGENCY 41963 DIANNA 6 6 [facility] DEPARTMEN INC T VISIT MODERATE SEVERITY HOSPITAL DIANNA - 6 6 [facility] OUTPATIEN INC T EMERGENCY 58283 LÁZARO LYNNE 6 6 PHYSICIAN [facility] S [facility] T VISIT HIGH/URGE NT SEVERITY EMERGENCY 34376 [facility] ILANA DEPT 6 6 SAMANTHA [facility] VISIT EMERGENCY HIGH PHYS SEVERITY& THREAT FUNCJ EMERGENCY 60298 [facility] 6 6 N [facility] COMMUNTIY T VISIT HOSPITA HIGH/URGE NT SEVERITY HOSPITAL [facility] - 6 6 N OUTPATIEN COMMUNTIY T HOSPITA EMERGENCY 06021 [facility] 5 5 N DEPARTMEN COMMUNTIY T VISIT HOSPITA HIGH/URGE NT SEVERITY EMERGENCY 90697 [facility] DEPT 5 5 SAMANTHA VISIT EMERGENCY HIGH SERV SEVERITY& THREAT [facility] - 5 5 N OUTPATIEN COMMUNTIY T HOSPITA EMERGENCY 03832 LÁZAR[facility] PATE DEPT 5 5 PHYSICIAN LYNDA VISIT S, PLLC HIGH SEVERITY& THREAT [facility] 36217 [facility] 5 5 [facility] DEPARTMEN INC T VISIT LOW/MODER SEVERITY [facility] - 5 5 [facility]IEN INC [facility] - 5 5 N OUTPATIEN COMMUNTIY T HOSPITA EMERGENCY 78607 [facility] DEPT 5 5 SAMANTHA JERILYN VISIT EMERGENCY HIGH PHYS SEVERITY& THREAT [facility] 53161 LÁZARO OROZCO 5 5 PHYSICIAN BECKIE DEPARTMEN S, PLLC T VISIT MODERATE SEVERITY EMERGENCY 89181 [facility] 5 5 [facility] DEPARTMEN INC T VISIT LOW/MODER SEVERITY [facility] - 5 5 [facility] OUTPATIEN INC T EMERGENCY 62188 LÁZARO PATE 5 5 PHYSICIAN LYNDA DEPARTMEN S, PLLC T VISIT HIGH/URGE NT SEVERITY [facility]OSPITAL [facility] - 5 5 [facility] OUTPATIEN INC T EMERGENCY 41591 [facility] 5 5 [facility] DEPARTMEN INC T VISIT LOW/MODER SEVERITY EMERGENCY 04361 LÁZARO WALTON 5 5 PHYSICIAN Valery KENNEDY DEPARTMEN S, PLLC T VISIT MODERATE SEVERITY EMERGENCY 49242 [facility] DEPT 5 5 SAMANTHA - YORBA VISIT EMERGENCY PAT HIGH PHYS SEVERITY& THREAT [facility] 19927 [facility] 5 5 N DEPARTMEN COMMUNTIY T VISIT HOSPITA HIGH/URGE NT SEVERITY [facility] - 5 5 N OUTPATIEN COMMUNTIY T HOSPITA EMERGENCY 58141 [facility] 5 5 N DEPARTMEN COMMUNTIY T VISIT HOSPITA HIGH/URGE NT SEVERITY [facility] - 5 5 N OUTPATIEN COMMUNTIY T HOSPITA EMERGENCY 73432 [facility] DEPT 5 5 SAMANTHA JERILYN VISIT EMERGENCY HIGH PHYS SEVERITY& THREAT [facility] - 5 5 [facility] OUTPATIEN INC T EMERGENCY 53787 LÁZARO TELLES 5 5 PHYSICIAN DEPARTMEN S, [facility] T VISIT MODERATE SEVERITY EMERGENCY 12571 [facility] 5 5 [facility] DEPARTMEN INC T VISIT LIMITED/M [facility] - 5 5 [facility] OUTPATIEN INC T EMERGENCY 48277 [facility] 5 5 [facility] DEPARTMEN INC T VISIT LOW/MODER SEVERITY EMERGENCY 58720 LÁZAR[facility] PATE DEPT 5 5 PHYSICIAN LYNDA VISIT S, [facility] HIGH SEVERITY& THREAT [facility] 03795 LÁZARO OLVERA 5 5 PHYSICIAN DEPARTMEN S, [facility] T VISIT HIGH/URGE NT SEVERITY [facility]OSPITAL [facility] - 5 5 [facility] OUTPATIEN INC T EMERGENCY 18317 [facility] 5 5 [facility] DEPARTMEN INC T VISIT MODERATE SEVERITY EMERGENCY 55785 [facility] 5 5 [facility] DEPARTMEN INC T VISIT LOW/MODER SEVERITY [facility] - 5 5 [facility] OUTPATIEN INC T EMERGENCY 26381 LÁZARO PATE 5 5 PHYSICIAN LYNDA DEPARTMEN S, [facility] T VISIT HIGH/URGE NT SEVERITY [facility]ER[facility] 82061 [facility] DAVIDSON 5 5 [facility] DEPARTMEN SERV T VISIT FOUNDATIO HIGH/URGE N NT SEVERITY EMERGENCY 63249 [facility] 5 5 SAMANTHA PET DEPARTMEN EMERGENCY T VISIT PHYS HIGH/URGE NT SEVERITY [facility]OSPITAL [facility] - 5 5 [facility] OUTPATIEN INC T EMERGENCY 59318 [facility] 5 5 [facility] DEPARTMEN INC T VISIT HIGH/URGE NT SEVERITY EMERGENCY 52224 LÁZARO WALTON DEPT 5 5 PHYSICIAN U MARCIA VISIT S, [facility] HIGH SEVERITY& THREAT [facility] [place] - 5 5 N OUTPATIEN COMMUNTIY T HOSPITA EMERGENCY 65573 [facility] DEPT 5 5 SAMANTHA COREY VISIT EMERGENCY HIGH PHYS SEVERITY& THREAT [facility] EMERGENCY 38648 [facility] 5 5 N DEPARTMEN COMMUNTIY T VISIT HOSPITA HIGH/URGE NT SEVERITY [facility]OSPITAL [facility] - 5 5 [facility] OUTPATIEN INC T EMERGENCY 99472 LÁZARO PATE 5 5 PHYSICIAN LYNDA DEPARTMEN S, [facility] T VISIT HIGH/URGE NT SEVERITY EMERGENCY 96156 DIANNA 5 5 [facility] DEPARTMEN INC T VISIT LOW/MODER SEVERITY [facility]OSPITAL [facility] - 5 5 [facility] OUTPATIEN INC T EMERGENCY 73923 DI[facility] 5 5 [facility] DEPARTMEN INC T VISIT LOW/MODER SEVERITY EMERGENCY 30189 DIANNA PATE [address] [facility] T VISIT P MODERATE SEVERITY [facility]OSPITAL [facility] - 5 5 [facility] OUTPATIEN INC T EMERGENCY 14972 DIANNA 5 5 [facility] DEPARTMEN INC T VISIT HIGH/URGE NT SEVERITY EMERGENCY 17449 DIANNA ARBOLEDA 5 5 [facility] T VISIT P LOW/MODER SEVERITY EMERGENCY 39306 DIANNA DEAN, 5 5 [facility] T VISIT P MODERATE SEVERITY [facility]OSPITAL [facility] - 5 5 [facility] OUTPATIEN INC T EMERGENCY 77723 DIANNA 5 5 [facility] INC T VISIT LOW/MODER SEVERITY
--- OUTSIDE RECORDS SUMMARY | 2016-10-10 12:31 | External Medical Summary Rpt ---
Author Author , Organization [employer] Address Unknown Phone Unavailable Care Team Providers Care Tank Inspector Name Role Phone A Kaelyn HERRERA MD [...] LYNDA RICK ARTI, RICK Unavailable Unavailable ARTI [facility] Un[facility]available [facility], [facility] YULI RHO, YULI Unavailable Unavailable RHO [facility], Unavailable Unavailable [facility], Unavailable Unavailable [facility], [facility] Unavailable [facility]available [facility]PITAL P, [facility] FELTON KOKI, FELTON KOKI Unavailable Unavailable BROWN III KISHA, Unavailable Unavailable BROWN III KISHA [facility], [facility] KILPELA JEA, KILPELA Unavailable Unavailable ЕКАТЕРИНАA KURT ROBERT, Unavailable Unavailable KOSTECORINNA ROBERT [facility], [facility] J[facility]NA ROSY Unavailable Unavailable HOLDINGS, [facility], Unavailable Unavailable BR[facility] [...] SOTINGEANU MARCIA [facility] Unavailable Unavailable EMERGENCY PHYS, [facility] EMERGENCY PHYS [facility] Unavailable Unavailable EMERGENCY SERV, [facility] EMERGENCY SERV [facility] Unavailable Unavailable PHYSICIAN SERVI, [facility] PHYSICIAN SERVI [facility], Unavailable Unavailable [facility] WALKER FOR, WALKER Unavailable Unavailable FOR WELLS, [...] PHYSICIANS, PAIN PLLC R1032 LEFT LOWER 08-10-2016 [place] [facility] B86 SCABIES 07-04-2016 [facility], [facility] N12 TUBULO-INTE 06-08-2016 [facility] RST N EMERGENCY [...] PSC PAIN E860 DEHYDRATION 02-22-2016 [facility], [facility] R1011 RIGHT UPPER 02-22-2016 [facility], PAIN PLL [id number] ELEVATED 02-21-2016 A Kaelyn HERRERA WHITE BLOOD PSC CELL COUNT UNSPECIFIED R1010 UPPER 02-21-2016 A Kaelyn HERRERA ABDOMINAL PSC PAIN UNSPECIFIED R1110 VOMITING 02-21-2016 A Kaelyn HERRERA UNSPECIFIED [facility] Q46688 OTHER 02-14-2016 A Kaelyn HERRERA INSTABILITY PSC LEFT ANKLE X39957 PAIN IN 02-14-2016 A Kaelyn HERRERA LEFT KNEE PSC M545 LOW BACK 02-09-2016 A Kaelyn HERRERA PAIN [facility] U30581 PAIN IN 02-09-2016 A Kaelyn HERRERA RIGHT LEG [facility] T34347 PAIN IN 02-09-2016 A Kaelyn HERRERA LEFT LEG [facility] I62276 EFFUSION 02-07-2016 [place] [facility] M95205 PAIN IN 02-07-2016 [place] [facility] M7989 OTHER 02-07-2016 [place] SPECIFIED MEDICAL SOFT TISSUE IMAGING ASS DISORDERS R300 DYSURIA 02-07-2016 [facility] G8929 OTHER 01-26-2016 A Kaelyn HERRERA CHRONIC PSC PAIN N3090 CYSTITIS 01-19-2016 [place] [facility]PEC[facility] SERV WITHOUT FOUNDATION HEMATURIA N289 DISORDER OF 01-09-2016 [facility] UNSPECIFIED R000 TACHYCARDIA 01-09-2016 [facility] U[facility]PEC[facility]IED [facility] J27894 PERSONAL 01-09-2016 [place] [facility] H[facility] OF SERV URINARY [facility]OUNDATION CALCULI N209 URINARY 12-31-2015 [facility] CALCULUS PHYSICIANS, UNSPECIFIED [facility] J28115 PAIN IN 11-10-2015 [place] [facility] P31570Q SPRAIN 11-10-2015 [facility] UNSPEC PHYSICIANS, LIG[facility] PLLC ROGHT ANKLE INITIAL ENC [id number] UNSPECIFIED 11-10-2015 [place] INJURY [facility]ICAL RIGHT ANKLE IMAGING ASS INITIAL ENCOUNTER R319 HEMATURIA 10-07-2015 [facility] UNSPECIFIED [facility], [facility] N8320 UNSPECIFIED 08-05-2015 [facility] OVARIAN N EMERGENCY CYSTS PHYS N8329 OTHER 08-05-2015 [facility] OVARIAN RADIOLOGY CYSTS R1031 RIGHT LOWER 08-05-2015 [facility] N EMERGENCY PAIN PHYS R1030 LOWER 08-04-2015 [facility] ABDOMINAL PHYSICIANS, PAIN PLLC UNSPECIFIED M549 DORSALGIA 06-26-2015 [facility] UNSPECIFIED PHYSICIANS, PLLC R110 NAUSEA 06-26-2015 [facility], [facility] Z720 TOBACCO USE 06-26-2015 [facility] N23 UNSPECIFIED 06-16-2015 [facility] RENAL N EMERGENCY COLIC PHYS Z960 PRESENCE OF 06-16-2015 [facility] IM[facility]ANT[facility] HOSPITA N201 CALCULUS OF 05-20-2015 [facility] URETER PHYSICIANS, [facility] E669 OBESITY 05-17-2015 [facility] UNSPECIFIED N PHYSICIAN SERVI N132 HYDRONEPHRO 05-17-2015 [facility] SIS W/RENAL N PHYSICIAN & URETRL SERVI CALCULOUS OBST N1330 UNSPECIFIED 05-17-2015 [facility] HYDRONEPHRO SIS N3001 ACUTE 05-17-2015 [facility] CYSTITIS N PHYSICIAN WITH SERVI HEMATURIA R6510 SYS INFLM 05-17-2015 [facility] RSPN SYND N PHYSICIAN NON-INF SERVI ORIG NO AC ORGN DYSF Z6841 BODY MASS 05-16-2015 [facility] INDEX BMI COMMUNTIY 40.0-44.9 HOSPITA ADULT J208 ACUTE 04-28-2015 [facility] BRONCHITIS PHYSICIANS, DUE TO PLLC OTHER SPEC ORGANISMS K859 ACUTE 04-05-2015 [facility] PANCREATITI N EMERGENCY S PHYS UNSPECIFIED R9431 ABNORMAL 04-05-2015 [facility] IOGRAM HOSPITA 5920 CALCULUS OF 02-26-2015 [facility] [place] [facility] 5990 URINARY 02-26-2015 [facility] TRACT N EMERGENCY INFECTION PHYS SITE NOT SPECIFIED 79609 NAUSEA 02-26-2015 [facility] ALONE COMMUNTIY HOSPITA 95648 DIARRHEA 02-26-2015 [facility] H[facility]PITA 37591 ABDOMINAL 02-26-2015 [facility] PAIN RIGHT N EMERGENCY LOWER PHYS QUADRANT V1301 PERSONAL 02-26-2015 [facility] H[facility]PITA CALCULI V1582 PERS HX 02-26-2015 [facility] TOBACCO USE COMMUNTIY PRESENTING HOSPITA [facility] 4019 UNSPECIFIED 02-19-2015 [facility] HYPERTENSIO INC N 5275 SIALOLITHIA 02-19-2015 [facility] SIS PHYSICIANS, PLLC 6202 OTHER AND 02-14-2015 [facility] UNSPECIFIED PHYSICIANS, OVARIAN PLLC CYST 55897 ABDOMINAL 12-11-2014 [place] [facility] OTHER MEDICAL SPECIFIED IMAGING ASS SITE 58881 ABDOMINAL 12-10-2014 [facility] PAIN, LEFT [facility] LOWER INC QU[facility]ANT 0419 BACTERIAL 11-26-2014 [place] [facility] UNSPECIFIED FOUNDATION CCE & UNS SITE 69526 UNSPECIFIED 11-26-2014 [facility] PYELONEPHRI TIS V4579 OTHER 11-26-2014 [facility] ABSENCE OF ORGAN 28616 ABDOMINAL 11-21-2014 [facility] [place] PAIN, RADIOLOGY UNSPECIFIED SITE 24699 ABDOMINAL 11-20-2014 [facility] PAIN, N EMERGENCY PERIUMBILIC PHYS 67294 ABDOMINAL 11-16-2014 [facility], MEDICAL EPIGASTRIC IMAGING ASS 48344 NAUSEA WITH 11-14-2014 [facility] VOMITING [facility] 5589 OTH&UNSPEC 10-31-2014 [facility] NONINFECTIO PHYSICIANS, PLLC GASTROENTER ITIS&COLITI S 7242 LUMBAGO 10-19-2014 [facility] P 18820 ABDOMINAL 10-19-2014 [facility] PAIN, LEFT [facility] P QUADRANT 5921 CALCULUS OF 10-01-2014 [facility] 7295 PAIN IN 10-01-2014 [facility]FT MEDICAL TISSUES OF IMAGING ASS LIMB 8449 SPRAIN&STRA 10-01-2014 [facility] IN OF MEM HOSP UNSPECIFIED INC SITE OF KNEE&LEG 9597 INJURY 10-01-2014 [place] OTHER&UNSPE MEDICAL CIFIED KNEE IMAGING ASS LEG ANKLE&FOOT B86 SCABIES E86.0 DEHYDRATION AJQ9952 J20.9 ACUTE BRONCHITIS, UNSPECIFIED K11.5 SIALOLITHIA SIS [...] 48 DE ZA 11 17 17 23 MT 0 48 PH IN AR E MA 10 CY MG OF CY TA NT BL HI ET AN A IN C MT 65 04 04 60 30 00 EA Ac OM 16 -0 -[address] ti ET 20 4- 8- 00 00 SI ve CAN 52 20 20 48 DE ZI 11 17 17 23 NE 1 79 PH AR 25 MA CY MG OF TA CY BL NT ET HI AN A IN C MT 59 04 04 10 5 00 EA [...] 12 01 14 7 00 EA Ac MT 71 -3 -[address] ti [...] 47 DE RA 30 16 17 07 AZ 5 45 PH DE AR MA 10 [...] Procedure [place] [address] [facility] ABDOMEN & 7 MEDICAL PELVIS IMAGING W/O ASS CONTRAST MATERIAL ECG 01210 [facility] ROUTINE 6 SAMANTHA ECG EMERGENCY W/LEAST SERV 12 LDS I&R ONLY RADIOLOGI 39511 [facility] [place] FIDENCIO C 6 RADIOLOGY EXAMINATI ON CHEST SINGLE VIEW FRONTAL URINE 10413 [facility] 6 [facility] TEST INC INC VISUAL COLOR CMPRSN METHS URNLS DIP 08677 [facility] 6 [facility] STICK/TAB INC INC LET REAGENT AUTO MICROSCOP Y CULTURE 46909 [facility] BACTERIAL 6 [facility] INC INC QUANTTATI VE COLONY COUNT URINE UNCLASSIF J3490 [facility] BUST[facility] IED DRUGS 6 MEM HOSP MEM HOSP INC INC CT 11-12-201 87634 [facility] [place] BROWN ABDOMEN & 6 RADIOLOGY III KISHA PELVIS W/O CONTRAST MATERIAL OBSERVATI 59663 A Kaelyn MACES SHAYY ON/INPATI 6 JAVIER ROMAN ENT [facility] C[place] [address] [place] [address] [facility] Q[facility]ONEZKAYLA ABDOMEN & 6 MEDICAL [place] PELVIS IMAGING W/O ASS CONTRST 1/> BODY RE THERAPEUT 15815 A Kaelyn RICK IC 6 [facility] PROPHYLAC PSC TIC/DX INJECTION SUBQ/IM INJECTION J2550 A Kaelyn [facility]I PROMETHAZ PSC INE HCL UP TO 50 MG URINLS 81835 A C MERLINE DIP 6 J[facility]IER [facility] STICK/TAB PSC LET REAGNT NON-AUTO MICRSCPY COMPREHEN 94985 [facility] BUSTAM[facility] SIVE 6 [facility] [address] [facility]USTAM[facility] AMYLASE 6 [facility] INC INC COLLECTIO 30296 [facility] BUSTAM[facility] N VENOUS 6 [facility] [place] [address] DI[facility]NA BUSTAMAN[facility] LIPASE 6 [facility] INC INC BLOOD 99096 DIANNA BUSTAMANTE COUNT 6 [facility] COMPLETE INC INC AUTO&AUTO DIFRNTL WBC URINLS 11662 A Kaelyn RICK DIP 6 JAVIER [facility]I STICK/TAB PSC LET REAGNT NON-AUTO MICRSCPY MRI ANY 32061 [place] [facility] ALL JT LOWER 6 MEDICAL EXTREM IMAGING [place] [address] DIANNA BUSTAMANTE RETROPERI 6 [facility] TONEAL INC [place] W/[place] [address] [place] [facility] ALL RETROPERI 6 MEDICAL TONEAL IMAGING REAL TIME ASS W/IMAGE LIMITED THERAPEUT 44048 A Kaelyn RICK IC 6 [facility] PROPHYLAC PSC TIC/DX INJECTION SUBQ/IM BLOOD 79265 A Kaelyn RICK COUNT 6 [facility]IER [facility] COMPLETE PSC AUTO&AUTO DIFRNTL WBC INJECTION J0696 A Kaelyn RICK 6 JAVIER CHI CEFTRIAXO PSC NE SODIUM PER 250 MG URINLS 13919 A C MERLINE DIP 6 [facility]IER [facility]I STICK/TAB PSC LET REAGNT NON-AUTO MICRSCPY URINLS 39452 A C MERLINE DIP 6 [facility] STICK/TAB PSC LET REAGNT NON-AUTO MICRSCPY INJECTION J0696 A Kaelyn RICK 6 JAVIER CHI CEFTRIAXO PSC NE SODIUM PER 250 MG THERAPEUT 45994 A Kaelyn RICK IC 6 [facility] PROPHYLAC PSC TIC/DX INJECTION SUBQ/IM BLOOD 62827 A C MERLINE COUNT 6 J[facility]IER CHI COMPLETE PSC AUTO&AUTO DIFRNTL WBC THERAPEUT 70105 A C MERLINE IC 6 J[facility]IER [facility]I PROPHYLAC PSC TIC/DX INJECTION SUBQ/IM INJECTION J0696 A C MERLINE 6 JAVIER CHI CEFTRIAXO PSC NE SODIUM PER 250 MG SUSCEPTIB 00952 LAB [facility] LTY STDY 6 ROSY ROSY ANTIMICRB HOLDINGS HOLDINGS IAL MICRO/AGA R DILUTJ CUL BACT 37700 [facility] AEROBIC 6 ROSY ROSY ADDL HOLDINGS HOLDINGS METHS DEFINITIV E EA ISOL CULTURE 77599 [facility] J[facility]NA BACTERIAL 6 ROSY ROSY HOLDINGS HOLDINGS QUANTTATI VE COLONY COUNT URINE INJECTION J2550 A C A C 6 JAVIER HERRERA MD PROMETHAZ PSC PSC INE HCL UP TO 50 MG URINLS 41181 A C MERLINE DIP 6 JAVIER CHI STICK/TAB PSC LET REAGNT NON-AUTO MICRSCPY CULTURE 65223 [facility] J[facility] BCT 6 ROSY ROSY ISOL&PRSM HOLDINGS HOLD[place] [address] [facility] BUSTAM[facility]TE ABDOMEN & 6 [facility]OS[facility] PELVIS INC INC W/O CONTRAST MATERIAL RADIOLOGI 07931 ROBERTA Art 6 MEDICAL WOLFGANG EXAMINATI IMAGING ON ANKLE ASS 2 VIEWS RADEX 13246 ROBERT[facility] CONNORS ALL SPINE 6 MEDICAL LUMBOSACR IMAGING AL 2/3 ASS VIEWS RADEX 80522 [facility]UST[facility] SPINE 6 [facility] HOSP LUMBOSACR INC INC AL MINIMUM 4 VIEWS RADEX 09981 [facility] ANKLE 6 [facility] HOS[facility]OS[facility] COMPLETE INC INC MINIMUM 3 VIEWS URINLS 00204 A C KILPELA DIP 6 JAVIER ROMAN JEA STICK/TAB PSC LET REAGNT NON-AUTO MICRSCPY RADEX 00157 [place] MERHAR ANKLE 6 MEDICAL GAR COMPLETE SERV MINIMUM 3 FOUNDATIO VIEWS N RADEX 79097 [place] FOOT 6 MEDICAL GAR COMPLETE SERV MINIMUM [address] [place] [address] [facility] [place] JAM ABDOMEN & 6 RADIOLOGY PELVIS W/O CONTRAST MATERIAL URINLS 45118 A C RICK DIP 6 JAVIER CHI STICK/TAB [place] [address] [place] PAWLEY RETROPERI 6 MEDICAL BAR TONEAL SERV REAL TIME FOUNDATIO W/[place] [address] [facility] [place] SCALF RITO ABDOMEN & 6 RADIOLOGY PELVIS W/[place] [address] [facility] B[facility] ABDOMEN & 6 MEM HOS[facility]OS[facility] PELVIS INC INC W/O CONTRAST MATERIAL COLLECTIO 44281 [facility] N VENOUS 6 MEM H[facility]P [facility] BLOOD INC INC VENIPUNCT URE BLOOD 61052 [facility] COUNT 6 MEM H[facility]OS[facility] COMPLETE INC INC AUTO&AUTO DIFRNTL WBC THER 46468 [facility] PROPH/DX 6 [facility] NJX IV INC INC PUSH SINGLE/1S T SBST/DRUG COMPREHEN 85783 [facility] SIVE 6 [facility] METABOLIC INC INC PANEL CULTURE 58945 [facility] BACTERIAL 6 [facility] INC INC QUANTTATI VE COLONY COUNT URINE THERAPEUT 07841 [facility] B[facility] IC 6 [facility]OS[facility] INJECTION INC INC IV PUSH EACH NEW DRUG UNCLASSIF J3490 [facility] IED DRUGS 6 [facility] INC INC URNLS DIP 41161 [facility] BUSTAMANTE 6 [facility] STICK/TAB INC [place] [address] ROBERTA GARZA ABDOMEN & 6 MEDICAL WOLFGANG PELVIS IMAGING W/O ASS CONTRAST MATERIAL RADIOLOGI 97313 ROBERTA CONNORS ALL C 6 MEDICAL EXAMINATI IMAGING [place] [address] [place] [address] ROBERTA YOUNG ABDOMEN & 6 MEDICAL MARCIA PELVIS IM[place] [address] [facility] [place] YULI ABDOMEN & 6 RADIOLOGY RHO PELVIS W/[place] [address] [facility] [place] FU ABDOMEN & 6 RADIOLOGY CAR PELVIS W/O CONTRAST MATERIAL BLOOD 88875 [facility]USTAMANTE COUNT 6 [facility] COMPLETE INC INC AUTO&AUTO DIFRNTL WBC COLLECTIO 37705 DINANA BUSTAMANTE N VENOUS 6 [facility] HOS[facility] BLOOD INC INC VENIPUNCT URE THERAPEUT 41921 DIANNA BUSTAMANTE IC 6 [facility] HOSP PROPHYLAC INC INC TIC/DX INJECTION SUBQ/IM UNCLASSIF J3490 [facility]UST[facility] IED DRUGS 6 [facility] HOSP INC INC BASIC 46927 [facility] BUST[facility] METABOLIC 6 [facility] PANEL INC INC CALCIUM TOTAL URINE 99774 [facility] 6 N N TEST COMMUNTIY COMMUNTIY VISUAL HOSPITA [place] [address] [facility] INFUSION 6 N N THERAPY/P COMMUNTIY COMMUNTIY ROPHYLAXI HOSPITA HOSPITA S /DX 1ST TO 1 HR THERAPEUT 72768 [facility] IC 6 N N INJECTION COMMUNTIY COMMUNTIY IV PUSH HOSPITA HOSPITA EACH NEW DRUG URNLS DIP 86955 [facility] 6 N N STICK/TAB COMMUNTIY COMMUNTIY LET HOSPITA [place] [address] [facility] INFUSION 6 N N THER COMMUNTIY COMMUNTIY PROPH HOSPITA HOSPITA AD[place] [address] [facility] INFUSION 6 N N HYDRATION COMMUNTIY COMMUNTIY EACH HOSPITA HOSPITA ADDITIONA L HOUR SUSCEPTIB 34030 [facility] LTY STDY 6 N N ANTIMICRB COMMUNTIY COMMUNTIY IAL HOSPITA HOSPITA MICRO/AGA R DILUTJ CULTURE 87803 [facility] BACTERIAL 6 N N COMMUNTIY COMMUNTIY QUANTTATI HOSPITA HOSPITA VE COLONY COUNT URINE CUL BACT 83857 [facility] AEROBIC 6 N N ADDL COMMUNTIY COMMUNTIY METHS HOSPITA HOSPITA DEFINITIV E EA ISOL COMPREHEN 76431 [facility] SIVE 6 N N METABOLIC COMMUNTIY COMMUNTIY PANEL HOSPITA HOSPITA COLLECTIO 54606 [facility] N VENOUS 6 N N BLOOD COMMUNTIY COMMUNTIY [place] [address] [facility] ABDOMEN & 6 N N PELVIS COMMUNTIY COMMUNTIY W/O HOSPITA HOSPITA CONTRAST MATERIAL BLOOD 12473 [facility] COUNT 6 N N COMPLETE COMMUNTIY COMMUNTIY AUTO&AUTO HOSPITA HOSPITA DIFRNTL WBC BLOOD 84188 [facility] COUNT 5 N N COMPLETE COMMUNTIY COMMUNTIY AUTO&AUTO HOSPITA HOSPITA DIFRNTL WBC COLLECTIO 18204 [facility] N VENOUS 5 N N BLOOD COMMUNTIY COMMUNTIY VENIPUNCT HOSPITA HOSPITA URE INJECTION J2550 [facility] 5 N N PROMETHAZ COMMUNTIY COMMUNTIY INE HCL HOSPITA HOSPITA UP TO 50 MG COMPREHEN 78310 [facility] SIVE 5 N N METABOLIC COMMUNTIY COMMUNTIY PANEL HOSPITA HOSPITA CULTURE 19111 [facility] BACTERIAL 5 N N COMMUNTIY COMMUNTIY QUANTTATI HOSPITA HOSPITA VE COLONY COUNT URINE INJECTION J2270 [facility] MORPHINE 5 N N SULFATE COMMUNTIY COMMUNTIY UP TO [address] [place] [address] [facility] LIPASE 5 N N [place] [address] [facility] INFUSION 5 N N HYDRATION COMMUNTIY COMMUNTIY EACH HOSPITA HOSPITA ADDITIONA L HOUR URNLS DIP 13207 [facility] 5 N N STICK/TAB COMMUNTIY COMMUNTIY LET HOSPITA HOSPITA REAGENT AUTO MICROSCOP Y THERAPEUT 36141 [facility] IC 5 N N INJECTION COMMUNTIY COMMUNTIY IV [place]USH [place] [address] [facility] INFUSION 5 N N THERAPY/P COMMUNTIY COMMUNTIY ROPHYLAXI HOSPITA HOSPITA S /DX 1ST TO 1 HR THER 10807 [facility] PROPH/DX 5 N N NJX EA COMMUNTIY COMMUNTIY SEQL IV HOSPITA HOSPITA PUSH SBST/DRUG FAC RADEX 11298 DI[facility] BUSTAMANTE ABDOMEN 1 5 [facility] INC INC ANTEROPOS TERIOR VIEW INJECTION J2001 [facility] 5 N N LIDOCAINE COMMUNTIY COMMUNTIY HCL HOSPITA HOSPITA INTRAVENO US INFUS 10 MG BLOOD 10259 [facility] COUNT 5 N N HEMOGLOBI COMMUNTIY COMMUNTIY N HOSPITA HOSPITA PROTHROMB 36941 [facility] IN TIME 5 N N COMMUNTIY COMMUNTIY HOSPITA HOSPITA INJECTION J1100 [facility] 5 N N DEXAMETHO COMMUNTIY COMMUNTIY SONE HOSPITA HOSPITA SODIUM PHOSPHATE 1 MG INJECTION J1170 [facility] 5 N N HYDROMORP COMMUNTIY COMMUNTIY RON UP HOSPITA HOSPITA TO 4 MG BLOOD 33275 [facility] COUNT 5 N N HEMATOCRI COMMUNTIY COMMUNTIY T HOSPITA HOSPITA INJ J2543 [facility] PIPERACIL 5 N N MEGHAN COMMUNTIY COMMUNTIY SOD/TAZOB HOSPITA HOSPITA ACTAM SOD 1 G/0.125 G COLLECTIO 55250 [facility] N VENOUS 5 N N BLOOD COMMUNTIY COMMUNTIY VENIPUNCT HOSPITA HOSPITA URE INJECTION J2550 [facility] 5 N N PROMETHAZ COMMUNTIY COMMUNTIY INE HCL HOSPITA HOSPITA UP TO 50 MG THER 92403 [facility] PROPH/DX 5 N N NJX EA COMMUNTIY COMMUNTIY SEQL IV HOSPITA HOSPITA PUSH SBST/DRUG FAC OBSERVATI 31781 [facility] 5 SAMANTHA A GOP DISCHARGE PHYSICIAN SERVI MANAGEMEN T BASIC 88358 [facility] METABOLIC 5 N N PANEL COMMUNTIY COMMUNTIY CALCIUM HOSPITA HOSPITA TOTAL INJECTION J2704 [facility] PROPOFOL 5 N N 10 MG COMMUNTIY COMMUNTIY HOSPITA HOSPITA SBSQ 54849 [facility] OBSERVATI 5 SAMANTHA A GOP ON PHYSICIAN CARE/DAY SERVI 35 MINUTES INFUSION J7030 [facility] NORMAL 5 N N SALINE COMMUNTIY COMMUNTIY SOLUTION HOSPITA H[place] [address] [place] [id number] [facility] INFUSION 5 N N THERAPY/P COMMUNTIY COMMUNTIY ROPHYLAXI HOSPITA HOSPITA S /DX 1ST TO 1 HR URNLS DIP 18665 [facility] 5 N N STICK/TAB COMMUNTIY COMMUNTIY LET HOSPITA HOSPITA REAGENT AUTO MICROSCOP Y CALCULUS 75524 [facility] QUANTITAT 5 N N DEVYN COMMUNTIY COMMUNTIY CHEMICAL HOSPITA HOSPITA CULTURE 59096 [facility] BACTERIAL 5 N N COMMUNTIY COMMUNTIY QUANTTATI HOSPITA HOSPITA VE COLONY COUNT URINE ANES 62865 [place] [facility] TRURL 5 ANESTHESI JERILYN FRAGMNTJ A GROUP MANJ&/RMV PS L URETERAL CALCULUS COMPREHEN 84547 [facility] SIVE 5 N N METABOLIC COMMUNTIY COMMUNTIY PANEL HOSPITA HOSPITA TOBACCO 50215 [facility] USE 5 N N CESSATION COMMUNTIY COMMUNTIY HOSPITA HOSPITA INTERMEDI ATE 3-10 MINUTES STENT [id number] [facility] NON-COR 5 N N TEMPORARY COMMUNTIY COMMUNTIY WITHOUT HOSPITA HOSPITA DELIVERY SYSTEM THER 83071 [facility] PROPH/DX 5 N N NJX EA COMMUNTIY COMMUNTIY SEQL IV HOSPITA HOSPITA PUSH SBST/DRUG FAC URINE 20394 [facility] 5 N N TEST COMMUNTIY COMMUNTIY VISUAL HOSPITA HOSPITA COLOR CMPRSN METHS CYSTO 58404 [facility] W/URETERO 5 N N SCOPY COMMUNTIY COMMUNTIY W/RMVL/[place] [address] [facility] [place] SCALF RITO ABDOMEN & 5 RADIOLOGY PELVIS W/O CONTRAST MATERIAL COLLECTIO 30926 [facility] N VENOUS 5 N N BLOOD COMMUNTIY COMMUNTIY VENIPUNCT HOSPITA HOSPITA URE INJ J2543 [facility] PIPERACIL 5 N N MEGHAN COMMUNTIY COMMUNTIY SOD/TAZOB HOSPITA HOSPITA ACTAM SOD 1 G/0.125 G DILATION 23762 [facility] NEPHROSTO 5 ALPESH ALPESH MY/URETER /URETHRA RS&I INJECTION J1170 [facility] 5 N N HYDROMORP COMMUNTIY COMMUNTIY RON UP HOSPITA HOSPITA TO 4 MG CYSTO [id number] [facility] W/INSERT 5 N N URETERAL COMMUNTIY COMMUNTIY STENT HOSPITA HOSPITA RINGERS [id number] [facility] LACTATE 5 N N INFUSION COMMUNTIY COMMUNTIY UP TO HOSPITA HOSPITA 1000 CC BLOOD 88101 [facility] COUNT 5 N N COMPLETE COMMUNTIY COMMUNTIY AUTO&AUTO HOSPITA HOSPITA DIFRNTL WBC INJECTION J0696 [facility] 5 N N CEFTRIAXO COMMUNTIY COMMUNTIY NE SODIUM HOSPITA HOSPITA PER 250 MG GUIDE C1769 [facility] WIRE 5 N N COMMUNTIY COMMUNTIY HOSPITA HOSPITA INJECTION J2550 [facility] 5 N N PROMETHAZ COMMUNTIY COMMUNTIY INE HCL HOSPITA HOSPITA UP TO 50 MG INJECTION J2550 [facility] 5 N N PROMETHAZ COMMUNTIY COMMUNTIY INE HCL HOSPITA HOSPITA UP TO 50 MG THROMBOPL [id number] [facility] ASTIN 5 N N TIME COMMUNTIY COMMUNTIY PARTIAL HOSPITA HOSPITA PLASMA/WH OLE BLOOD THERAPEUT 24730 [facility] IC 5 N N PROPHYLAC COMMUNTIY COMMUNTIY TIC/DX HOSPITA HOSPITA INJECTION SUBQ/IM CULTURE 92005 [facility] BACTERIAL 5 N N BLOOD COMMUNTIY COMMUNTIY AEROBIC HOSPITA HOSPITA W/ID ISOLATES BLOOD 72336 [facility] COUNT 5 N N COMPLETE COMMUNTIY COMMUNTIY AUTO&AUTO HOSPITA HOSPITA DIFRNTL WBC INTRODUCT 20173 [facility] ION 5 SAMANTHA JERILYN NEEDLE/IN EMERGENCY TRACATHET PHYS ER VEIN INJECTION J1170 [facility] 5 N N HYDROMORP COMMUNTIY COMMUNTIY RON UP HOSPITA HOSPITA TO 4 MG INJ J2543 [facility] PIPERACIL 5 N N MEGHAN COMMUNTIY COMMUNTIY SOD/TAZOB HOSPITA HOSPITA ACTAM SOD 1 G/0.125 G COLLECTIO 54796 [facility] N VENOUS 5 N N BLOOD COMMUNTIY COMMUN[place] [address] [place] ABDOMEN & 5 [facility] [place] PELVIS IMAGING W/O ASS CONTRAST MATERIAL THER 33682 [facility] PROPH/DX 5 N N NJX EA COMMUNTIY COMMUNTIY SEQL IV HOSPITA HOSPITA PUSH SBST/DRUG FAC INFUSION J7030 [facility] NORMAL 5 N N SALINE COMMUNTIY COMMUNTIY SOLUTION HOSPITA HOSPITA 1000 CC COMPREHEN 98804 [facility] SIVE 5 N N METABOLIC COMMUNTIY COMMUNTIY PANEL HOSPITA HOSPITA INITIAL 66441 [facility] OBSERVATI 5 SAMANTHA A GOP ON PHYSICIAN CARE/DAY SERVI 70 MINUTES CULTURE 89873 [facility] BACTERIAL 5 N N COMMUNTIY COMMUNTIY QUANTTATI HOSPITA HOSPITA VE COLONY COUNT URINE INJECTION J2270 [facility] MORPHINE 5 N N SULFATE COMMUNTIY COMMUNTIY UP TO 10 HOSPITA HOSPITA MG URNLS DIP 78145 [facility] 5 N N STICK/TAB COMMUNTIY COMMUNTIY LET HOSPITA HOSPITA REAGENT AUTO MICROSCOP Y THERAPEUT 56681 [facility] IC 5 N N INJECTION COMMUNTIY COMMUNTIY IV PUSH HOSPITA HOSPITA EACH [facility] [id number] [facility] OBSERVATI 5 N N ON COMMUNTIY COMMUNTIY SERVICE HOSPITA HOSPITA PER HOUR URNLS DIP 17006 DIANNA BUSTAMANTE 5 [facility] STICK/TAB INC INC LET REAGENT AUTO MICROSCOP Y URINE 91359 DIANNA BUSTAMANTE 5 [facility] TEST INC INC VISUAL COLOR CMPRSN METHS CULTURE 65591 DIANNA BUSTAMANTE BACTERIAL 5 [facility] INC INC QUANTTATI VE COLONY COUNT URINE UNCLASSIF J3490 DIANNA BUSTAMANTE IED DRUGS 5 [facility] INC INC INFUSION J7030 [facility] NORMAL 5 N N SALINE COMMUNTIY COMMUNTIY SOLUTION HOSPITA HOSPITA 1000 CC THERAPEUT 99067 [facility] IC 5 N N INJECTION COMMUNTIY COMMUNTIY IV [place] [address] [facility] INFUSION 5 N N THERAPY/P COMMUNTIY COMMUNTIY ROPHYLAXI HOSPITA HOSPITA S /DX 1ST TO 1 HR URNLS DIP 57368 [facility] 5 N N STICK/TAB COMMUNTIY COMMUNTIY LET HOSPITA [place] [address] [facility] INFUSION 5 N N HYDRATION COMMUNTIY COMMUNTIY EACH HOSPITA HOSPITA ADDITIONA L HOUR URINE 68276 [facility] 5 N N TEST COMMUNTIY COMMUNTIY VISUAL HOSPITA HOSPITA COLOR CMPRSN METHS CULTURE 83351 [facility] BACTERIAL 5 N N COMMUNTIY COMMUNTIY QUANTTATI HOSPITA HOSPITA VE COLONY COUNT URINE BLOOD 88257 [facility] COUNT 5 N N SMEAR COMMUNTIY COMMUNTIY MCRSCP HOSPITA HOSPITA W/MNL DIFRNTL WBC COUNT COMPREHEN 92032 [facility] SIVE 5 N N METABOLIC COMMUNTIY COMMUNTIY PANEL HOSPITA HOSPITA BLOOD 26952 [facility] COUNT 5 N N COMPLETE COMMUNTIY COMMUNTIY [place] [address] [facility] LIPASE 5 N N COMMUNTIY COMMUNTIY HOSPITA HOSPITA INJECTION J2270 [facility] MORPHINE 5 N N SULFATE COMMUNTIY COMMUNTIY UP TO 10 HOSPITA HOSPITA MG COLLECTIO 97122 [facility] N VENOUS 5 N N BLOOD COMMUNTIY COMMUNTIY VENIPUNCT HOSPITA HOSPITA URE INJECTION J2550 [facility] 5 N N PROMETHAZ COMMUNTIY COMMUNTIY INE HCL HOSPITA HOSPITA UP TO 50 MG ECG 05327 [facility] ROUTINE 5 N N ECG COMMUNTIY COMMUNTIY W/LEAST HOSPITA HOSPITA 12 LDS TRCG ONLY W/O I&R ECG 89969 [facility] CELLAR[facility] ROUTINE 5 SAMANTHA - YORBA ECG EMERGENCY PAT W/LEAST PHYS 12 LDS I&R ONLY BLOOD 63215 [facility] COUNT 5 N N COMPLETE COMMUNTIY COMMUNTIY AUTO&AUTO HOSPITA HOSPITA DIFRNTL WBC COLLECTIO 24938 [facility] N VENOUS 5 N N BLOOD COMMUNTIY COMMUNTIY [place] [address] [facility] ABDOMEN & 5 N N PELVIS COMMUNTIY COMMUNTIY W/O HOSPITA HOSPITA CONTRAST MATERIAL INJECTION J2270 [facility] MORPHINE 5 N N SULFATE COMMUNTIY COMMUNTIY UP TO 10 HOSPITA HOSPITA MG THER 69750 [facility] PROPH/DX 5 N N NJX IV COMMUNTIY COMMUNTIY PUSH HOSPITA HOSPITA SINGLE/1S T SBST/[place] [address] [facility] LIPASE 5 N N COMMUNTIY COMMUNTIY HOSPITA HOSPITA COMPREHEN 71486 [facility] SIVE 5 N N METABOLIC COMMUNTIY COMMUNTIY PANEL HOSPITA HOSPITA CULTURE 69224 [facility] BACTERIAL 5 N N COMMUNTIY COMMUNTIY QUANTTATI HOSPITA HOSPITA VE COLONY COUNT URINE URINE 18433 [facility] 5 N N TEST COMMUNTIY COMMUNTIY VISUAL HOSPITA [place] [address] [facility] INFUSION 5 N N HYDRATION COMMUNTIY COMMUNTIY EACH HOSPITA HOSPITA ADDITIONA L HOUR URNLS DIP 19606 [facility] 5 N N STICK/TAB COMMUNTIY COMMUNTIY LET HOSPITA HOSPITA REAGENT AUTO MICROSCOP Y INFUSION J7030 [facility] NORMAL 5 N N SALINE COMMUNTIY COMMUNTIY SOLUTION HOSPITA HOSPITA 1000 CC UNCLASSIF J3490 DIANNA BUSTAMANTE IED DRUGS 5 [place] [address] DIANNA BUSTAMANTE AMYLASE 5 [facility] INC INC COMPREHEN 99618 DIANNA BUSTAMANTE SIVE 5 [facility] [address] DIANNA BUSTAMANTE LIPASE 5 [facility] INC INC BLOOD 13991 DIANNA BUSTAMANTE COUNT 5 [facility] COMPLETE INC INC AUTO&[place] [address] [place] ABDOMEN & 5 [facility] [place] PELVIS IMAGING W/O ASS CONTRAST MATERIAL URNLS DIP 26977 DI[facility] BUSTAMANTE 5 [facility] STICK/TAB INC INC LET REAGENT AUTO MICROSCOP Y CULTURE 54745 DIANNA BUSTAMANTE BACTERIAL 5 [facility] INC INC QUANTTATI VE COLONY COUNT URINE URINE 55493 DIANNA BUSTAMANTE 5 [facility] TEST INC INC VISUAL COLOR CMPRSN METHS UNCLASSIF J3490 DIANNA BUSTAMANTE IED DRUGS 5 [facility] INC INC BLOOD 51841 DIANNA BUSTAMANTE COUNT 5 [facility] COMPLETE INC INC AUTO&[place] [address] DIANNA BUSTAMANTE LIPASE 5 [facility] INC INC COMPREHEN 12720 DIANNA BUSTAMANTE SIVE 5 [facility] METABOLIC INC INC PANEL COLLECTIO 57522 DIANNA BUSTAMANTE N VENOUS 5 [facility] BLOOD INC INC VENIPUNCT URE URNLS DIP 08346 DIANNA BUSTAMANTE 5 [facility] STICK/TAB INC INC LET REAGENT AUTO MICROSCOP Y URINE 11128 DIANNA BUSTAMANTE 5 [facility] TEST INC [place] [address] [facility] ABDOMEN & 5 MED[facility] [place] PELVIS IMAGING W/O ASS CONTRAST MATERIAL URINE 97923 DIANNA BUSTAMANTE 5 [facility] TEST INC INC VISUAL COLOR CMPRSN METHS URNLS DIP 79810 DIANNA BUSTAMANTE 5 [facility] STICK/TAB INC INC LET REAGENT AUTO MICROSCOP Y INJECTION J1200 [facility] 5 Y Y DIPHENHYD [facility] RAMINE HCL UP TO 50 MG INJECTION J1956 [facility] 5 Y Y LEVOFLOXA [facility] LETY 250 MG INJECTION J2270 [facility] MORPHINE 5 Y Y SULFATE [facility]OSP[facility] UP TO 10 MG INJECTION J2270 [facility] MORPHINE 5 Y Y SULFATE [facility] UP TO 10 [place] [address] [facility] LIPASE 5 Y Y [facility] BLOOD 93687 [facility] COUNT 5 Y Y COMPLETE [facility] AUTOMATED COMPREHEN 61687 [facility] SIVE 5 Y Y METABOLIC [facility] PANEL INJECTION J2765 [facility] 5 Y Y METOCLOPR [facility] AMIDE HCL UP TO 10 MG INFUSION J7030 [facility] NORMAL 5 Y Y SALINE [facility] SOL[place] [address] [place] [address] [facility] INFUSION 5 Y Y THERAPY/P [facility] ROPHYLAXI S /DX 1ST TO 1 HR THERAPEUT 92170 [facility] IC 5 Y Y INJECTION [facility] IV PUSH EACH NEW DRUG URNLS DIP 53639 [facility] 5 Y Y STICK/TAB [facility] LET REAGENT AUTO MICROSCOP Y URINE 77010 [facility] 5 Y Y TEST [facility] VISUAL COLOR CMPRSN METHS THER 13551 [facility] PROPH/DX 5 Y Y NJX EA [facility] SEQL IV PUSH SBST/[place] [address] [facility] [place] [facility] ABDOMEN & 5 RADIOLOGY ROBERT PELVIS W/[place] [address] DIANNA BUSTAMANTE ABDOMEN & 5 [facility] PELVIS INC INC W/O CONTRAST MATERIAL PROTHROMB 90861 DIANNA BUSTAMANTE IN TIME 5 [facility] INC INC BLOOD 40297 DIANNA BUSTAMANTE COUNT 5 [facility] COMPLETE INC INC AUTO&[place] [address] DIANNA BUSTAMANTE LIPASE 5 [facility] INC INC THROMBOPL 57982 DIANNA BUSTAMANTE ASTIN 5 [facility] TIME INC INC PARTIAL PLASMA/WH OLE BLOOD CULTURE 06026 DIANNA BUSTAMANTE BACTERIAL 5 [facility] INC INC QUANTTATI VE COLONY COUNT URINE COMPREHEN 24460 DIANNA BUSTAMANTE SIVE 5 [facility] [place] [address] DIANNA BUSTAMANTE AMYLASE 5 [facility] INC INC URNLS DIP 22077 DIANNA BUSTAMANTE 5 [facility] STICK/TAB INC INC LET REAGENT AUTO MICROSCOP Y THERAPEUT 00857 DIANNA BUSTAMANTE IC 5 [facility] INJECTION INC [place] [address] DIANNA BUSTAMANTE INFUSION 5 [facility] THERAPY/P INC INC ROPHYLAXI S /DX 1ST TO 1 HR UNCLASSIF J3490 DIANNA BUSTAMANTE IED DRUGS 5 [facility] INC INC LOCM Q9967 [facility] [phone] 5 N N MG/ML COMMUNTIY COMMUNTIY IODINE HOSPITA HOSPITA CONCENTRA TION PER ML THERAPEUT 11309 [facility] IC 5 N N INJECTION COMMUNTIY COMMUNTIY IV PUSH HOSPITA HOSPITA EACH NEW DRUG INJECTION J2270 [facility] MORPHINE 5 N N SULFATE COMMUNTIY COMMUNTIY UP TO 10 HOSPITA HOSPITA MG URNLS DIP 06584 [facility] 5 N N STICK/TAB COMMUNTIY COMMUNTIY LET HOSPITA HOSPITA [place] [address] [facility] AMYLASE 5 N N COMMUNTIY COMMUNTIY HOSPITA HOSPITA URINE 29204 [facility] 5 N N TEST COMMUNTIY COMMUNTIY VISUAL HOSPITA HOSPITA COLOR CMPRSN METHS INJECTION J2550 [facility] 5 N N PROMETHAZ COMMUNTIY COMMUNTIY INE HCL HOSPITA HOSPITA UP TO 50 MG COMPREHEN 26978 [facility] SIVE 5 N N METABOLIC COMMUNTIY COMMUNTIY PANEL HOSPITA HOSPITA CULTURE 28374 [facility] BACTERIAL 5 N N COMMUNTIY COMMUNTIY QUANTTATI HOSPITA [place] [address] [facility] LIPASE 5 N N COMMUNTIY COMMUNTIY HOSPITA HOSPITA BLOOD 82391 [facility] COUNT 5 N N COMPLETE COMMUNTIY COMMUNTIY AUTO&[place] [address] [facility] ABDOMEN & 5 N N PELVIS COMMUNTIY COMMUNTIY W/CONTRAS HOSPITA HOSPITA T MATERIAL BLOOD 93130 DIANNA PALACIOSON COUNT 5 [facility] COMPLETE INC INC AUTO&[place] [address] DIANNA PALACIOSON LIPASE 5 [facility] INC INC CULTURE 73416 DIANNA PALACIOSON BACTERIAL 5 [facility] INC INC QUANTTATI VE COLONY COUNT URINE COMPREHEN 76675 DIANNA BUSTAMANTE SIVE 5 [facility]OS[facility] METABOLIC INC INC PANEL URINE 28745 DIANNA BUSTAMANTE 5 [facility] TEST INC INC [place] [address] DIANNA BUSTAMANTE AMYLASE 5 [facility] INC INC URNLS DIP 49473 DIANNA BUSTAMANTE 5 [facility] STICK/TAB INC INC LET REAGENT AUTO MICROSCOP Y UNCLASSIF J3490 DIANNA PALACIOSON IED DRUGS 5 [facility] INC INC UNCLASSIF J3490 DIANNA BUSTAMANTE IED DRUGS 5 [facility] INC INC URNLS DIP 12171 DIANNA BUSTAMANTE 5 [facility] STICK/TAB INC INC LET REAGENT AUTO MICROSCOP Y URINE 35922 DIANNA BUSTAMANTE 5 [facility] TEST INC [place] [address] [facility] ABDOMEN & 5 MEDICAL PELVIS IMAGING W/O ASS CONTRAST MATERIAL THER 44147 DIANNA BUSTAMANTE PROPH/DX 5 [facility] NJX IV INC INC PUSH SINGLE/1S T SBST/DRUG UNCLASSIF J3490 DIANNA BUSTAMANTE IED DRUGS 5 [facility] INC INC THERAPEUT 02526 DIANNA PALACIOSON IC 5 [facility] INJECTION INC INC IV PUSH EACH NEW DRUG RADIOLOGI 14447 [facility] C 5 MEDICAL [facility] EXAMINATI IMAGING ON TIBIA ASS & [place] [address] [place] [address] [facility] ABDOMEN & 5 MED[facility] [place] PELVIS IMAGING W/O ASS CONTRAST MATERIAL Encounters Encounter Start End Date Code Location Performer Type Date EMERGENCY 10377 LÁZARO PATE 7 7 PHYSICIAN DEPARTMEN S, [facility] T VISIT HIGH/URGE NT SEVERITY EMERGENCY 05426 DANNY CHAND 7 7 SAMANTHA DEPARTMEN EMERGENCY T VISIT PHYS HIGH/URGE NT SEVERITY EMERGENCY 37686 LÁZARO [facility] DEPT 7 7 PHYSICIAN U VISIT S, PLLC HIGH SEVERITY& THREAT FUNCJ EMERGENCY 83255 LÁZARO PATE 7 7 PHYSIC[facility], [facility] T VISIT HIGH/URGE NT SEVERITY EMERGENCY 90779 [facility] 6 6 SAMANTHA DEPARTMEN EMERGENCY T VISIT PHYS HIGH/URGE NT SEVERITY EMERGENCY 78514 [facility] DEPT 6 6 SAMANTHA VISIT EMERGENCY HIGH SERV SEVERITY& THREAT FUNCJ EMERGENCY 65565 LÁZARO [place] 6 6 PHYSICIAN U DEPARTMEN S, PLLC T VISIT HIGH/URGE NT SEVERITY HOSPITAL DIANNA - 6 6 [facility] OUTPATIEN INC T EMERGENCY 13128 DIANNA 6 6 [facility] T VISIT LIMITED/M INOR PROB EMERGENCY 24422 [facility] DEPT 6 6 SAMANTHA SCO VISIT EMERGENCY HIGH PHYS SEVERITY& THREAT FUNCJ OFFICE 22500 A C NEELAM LUCAS OUTPATIEN 6 6 JAVIER ROMAN T VISIT PSC 15 MINUTES EMERGENCY 76430 LÁZARO [facility] DEPT 6 6 PHYSICIAN U MARCIA VISIT S, PLLC HIGH SEVERITY& THREAT FUNCJ OFFICE 39217 A C MERLINE OUTPATIEN 6 6 JAVIER CHI T VISIT PSC 15 MINUTES OFFICE 99733 A C [facility]LINE OUTPATIEN 6 6 JAVIER [facility]I T VISIT PSC 15 MINUTES HOSPITAL DIANNA - 6 6 [facility] OUTPATIEN INC T OFFICE 55850 A C [facility]LINE OUTPATIEN 6 6 JAVIER CHI T VISIT PSC 15 MINUTES OFFICE 51910 A Kaelyn ROSALES OUTPATIDAVIDA 6 6 JAVIER LOGAN T VISIT PSC 15 MINUTES OFFICE 54917 A C [facility]LINE OUTPATIEN 6 6 JAVIER CHI T VISIT PSC 15 MINUTES HOSPITAL DIANNA - 6 6 [facility] OUTPATIEN INC T OFFICE 39497 A C MERLINE OUTPATIEN 6 6 JAVIER CHI T VISIT PSC 15 MINUTES OFFICE 69575 A C [facility]LINE OUTPATIEN 6 6 JAVIER CHI T VISIT PSC 15 MINUTES OFFICE 44412 A C MERLINE OUTPATIEN 6 6 JAVIER CHI T VISIT PSC 15 MINUTES EMERGENCY 10073 LÁZARO PATE 6 6 PHYSICIAN LYNDA DEPARTMEN , [facility] T VISIT HIGH/URGE NT SEVERITY HOSPITAL DIANNA - 6 6 [facility] OUTPATIEN INC T HOSPITAL DIANNA - 6 6 [facility] OUTPATIEN [facility] T OFFICE 13934 A C CONNIE OUTPATIEN 6 6 JAVIER LOGAN T VISIT PSC 25 MINUTES OFFICE 48028 A C MERLINE OUTPATIEN 6 6 JAVIER CHI T VISIT PSC 15 MINUTES EMERGENCY 02038 [facility] 6 6 SAMANTHA DEPARTMEN EMERGENCY T VISIT PHYS HIGH/URGE NT SEVERITY EMERGENCY 02781 JOCY BRASHER QUENTIN 6 6 MEDICAL DEPARTMEN SERV T VISIT FOUNDATIO MODERATE N SEVERITY OFFICE 85442 A C MERLINE OUTPATIEN 6 6 JAVIER Lewis NEW 30 PSC MINUTES EMERGENCY 41358 JOCY TAM 6 6 MEDICAL MAT DEPARTMEN SERV T VISIT FOUNDATIO HIGH/URGE N NT SEVERITY EMERGENCY 47802 [facility] BAB 6 6 SAMANTHA DEPARTMEN EMERGENCY T VISIT PHYS HIGH/URGE NT SEVERITY HOSPITAL DIANNA - 6 6 [facility] OUTPATIEN INC T EMERGENCY 67301 DIANNA 6 6 [facility] DEPARTMEN INC T VISIT HIGH/URGE NT SEVERITY EMERGENCY 00120 LÁZARO PATE DEPT 6 6 PHYSICIAN LYNDA VISIT S, PLLC HIGH SEVERITY& THREAT FUNCJ EMERGENCY 35927 LÁZARO WALTON 6 6 PHYSICIAN U MARCIA [facility] S [facility] T VISIT MODERATE SEVERITY EMERGENCY 61853 [facility] ROSALES SCO 6 6 SAMANTHA [facility] EMERGENCY T VISIT SERV HIGH/URGE NT SEVERITY EMERGENCY 67147 LÁZARO PATE 6 6 PHYSICIAN [facility] T VISIT HIGH/URGE NT SEVERITY EMERGENCY 40861 LÁZARO [place]TON 6 6 PHYSICIAN U MARCIA [facility] S [facility] T VISIT MODERATE SEVERITY EMERGENCY 07434 LÁZARO PATE 6 6 PHYSICIAN [facility] T VISIT HIGH/URGE NT SEVERITY EMERGENCY 80382 LÁZARO HOWELL 6 6 [facility] T VISIT HIGH/URGE NT SEVERITY EMERGENCY 11385 [facility] SAMANTHA [facility] EMERGENCY T VISIT PHYS HIGH/URGE NT SEVERITY EMERGENCY 61465 LÁZARO CHACON DEPT 6 6 PHYSICIAN FOR VISIT S [facility] HIGH SEVERITY& THREAT FUNCJ EMERGENCY 15060 LÁZARO PATE 6 6 PHYSICIAN [facility] T VISIT HIGH/URGE NT SEVERITY EMERGENCY 98226 [facility] SAM[facility]THA [facility] EMERGENCY T VISIT PHYS HIGH/URGE NT SEVERITY EMERGENCY 66391 DIANNA 6 6 [facility] DEPARTMEN INC T VISIT MODERATE SEVERITY HOSPITAL DIANNA - 6 6 [facility] OUTPATIEN INC T EMERGENCY 42583 LÁZARO LYNNE 6 6 PHYSICIAN [facility] S [facility] T VISIT HIGH/URGE NT SEVERITY EMERGENCY 37144 [facility] ILANA DEPT 6 6 SAMANTHA [facility] VISIT EMERGENCY HIGH PHYS SEVERITY& THREAT FUNCJ EMERGENCY 86127 [facility] 6 6 N [facility] COMMUNTIY T VISIT HOSPITA HIGH/URGE NT SEVERITY HOSPITAL [facility] - 6 6 N OUTPATIEN COMMUNTIY T HOSPITA EMERGENCY 95103 [facility] 5 5 N DEPARTMEN COMMUNTIY T VISIT HOSPITA HIGH/URGE NT SEVERITY EMERGENCY 94427 [facility] DEPT 5 5 SAMANTHA VISIT EMERGENCY HIGH SERV SEVERITY& THREAT FUNCJ HOSPITAL [facility] - 5 5 N OUTPATIEN COMMUNTIY T HOSPITA EMERGENCY 73944 LÁZARO PATE DEPT 5 5 PHYSICIAN LYNDA VISIT S, PLLC HIGH SEVERITY& THREAT FUNCJ EMERGENCY 72621 [facility] 5 5 [facility] DEPARTMEN INC T VISIT LOW/MODER SEVERITY HOSPITAL [facility] - 5 5 [facility] OUTPATIEN INC T [facility] - 5 5 N OUTPATIEN COMMUNTIY T HOSPITA EMERGENCY 02531 [facility] DEPT 5 5 SAMANTHA JERILYN VISIT EMERGENCY HIGH PHYS SEVERITY& THREAT FUNCJ EMERGENCY 07508 LÁZARO OROZCO 5 5 PHYSICIAN BECKIE DEPARTMEN S, PLLC T VISIT MODERATE SEVERITY EMERGENCY 01116 [facility] 5 5 [facility] DEPARTMEN INC T VISIT LOW/MODER SEVERITY HOSPITAL [facility] - 5 5 [facility] OUTPATIEN INC T EMERGENCY 20975 LÁZARO PATE 5 5 PHYSICIAN LYNDA DEPARTMEN S, PLLC T VISIT HIGH/URGE NT SEVERITY HOSPITAL [facility] - 5 5 [facility] OUTPATIEN INC T EMERGENCY 84434 [facility] 5 5 [facility] DEPARTMEN INC T VISIT LOW/MODER SEVERITY EMERGENCY 55486 LÁZARO WALTON 5 5 PHYSICIAN Valery KENNEDY DEPARTMEN S, PLLC T VISIT MODERATE SEVERITY EMERGENCY 06763 [facility] 5 5 SAMANTHA - YORBA VISIT EMERGENCY PAT HIGH PHYS SEVERITY& THREAT FUNCJ EMERGENCY 32810 [facility] 5 5 N DEPARTMEN COMMUNTIY T VISIT HOSPITA HIGH/URGE NT SEVERITY [facility]OSPITAL [facility] - 5 5 N OUTPATIEN COMMUNTIY T HOSPITA EMERGENCY 14475 [facility] 5 5 N DEPARTMEN COMMUNTIY T VISIT HOSPITA HIGH/URGE NT SEVERITY [facility]OSPITAL [facility] - 5 5 N OUTPATIEN COMMUNTIY T HOSPITA EMERGENCY 77004 [facility] DEPT 5 5 SAMANTHA JERILYN VISIT EMERGENCY HIGH PHYS SEVERITY& THREAT [facility] DIANNA - 5 5 [facility] OUTPATIEN INC T EMERGENCY 25276 LÁZARO TELLES 5 5 PHYSICIAN DEPARTMEN S, [facility] T VISIT MODERATE SEVERITY EMERGENCY 15304 [facility] 5 5 [facility] DEPARTMEN INC T VISIT LIMITED/M [facility] DI[facility] - 5 5 [facility] OUTPATIEN INC T EMERGENCY 87130 [facility] 5 5 [facility] DEPARTMEN INC T VISIT LOW/MODER SEVERITY EMERGENCY 35206 LÁZAR[facility] PATE DEPT 5 5 PHYSICIAN LYNDA VISIT S, [facility] HIGH SEVERITY& THREAT FUNCJ EMERGENCY 24460 LÁZARO OLVERA 5 5 PHYSICIAN DEPARTMEN S, [facility] T VISIT HIGH/URGE NT SEVERITY HOSPITAL DI[facility] - 5 5 [facility] OUTPATIEN INC T EMERGENCY 17803 [facility] 5 5 [facility] DEPARTMEN INC T VISIT MODERATE SEVERITY EMERGENCY 61870 [facility] 5 5 [facility] DEPARTMEN INC T VISIT LOW/MODER SEVERITY [facility]OSPITAL [facility] - 5 5 [facility] OUTPATIEN INC T EMERGENCY 69334 LÁZARO PATE 5 5 PHYSICIAN LYNDA DEPARTMEN S, [facility] T VISIT HIGH/URGE NT SEVERITY [facility] 98065 JOCY DAVIDSON 5 5 [facility] DEPARTMEN SERV T VISIT FOUNDATIO HIGH/URGE N NT SEVERITY EMERGENCY [address] [facility] 5 5 SAMANTHA PET DEPARTMEN EMERGENCY T VISIT PHYS HIGH/URGE NT SEVERITY HOSPITAL [facility] - 5 5 [facility] OUTPATIEN INC T EMERGENCY 98869 [facility] 5 5 [facility] DEPARTMEN INC T VISIT HIGH/URGE NT SEVERITY EMERGENCY 87242 LÁZARO WALTON DEPT 5 5 PHYSICIAN U MARCIA VISIT S, [facility] HIGH SEVERITY& THREAT [facility] [place] - 5 5 N OUTPATIEN COMMUNTIY T HOSPITA EMERGENCY 28161 [facility] DEPT 5 5 SAMANTHA COREY VISIT EMERGENCY HIGH PHYS SEVERITY& THREAT [facility] EMERGENCY 94031 [facility] 5 5 N DEPARTMEN COMMUNTIY T VISIT HOSPITA HIGH/URGE NT SEVERITY HOSPITAL DIANNA - 5 5 [facility] OUTPATIEN INC T EMERGENCY 50576 LÁZARO PATE 5 5 PHYSICIAN LYNDA DEPARTMEN S, [facility] T VISIT HIGH/URGE NT SEVERITY EMERGENCY 00037 DIANNA 5 5 [facility] DEPARTMEN INC T VISIT LOW/MODER SEVERITY HOSPITAL [facility] - 5 5 [facility] OUTPATIEN INC T EMERGENCY 43944 DIANNA 5 5 [facility] DEPARTMEN INC T VISIT LOW/MODER SEVERITY EMERGENCY 06818 DIANNA PATE 5 5 [facility] T VISIT P MODERATE SEVERITY HOSPITAL [facility] - 5 5 [facility] OUTPATIEN INC T EMERGENCY 30564 DIANNA 5 5 [facility] DEPARTMEN INC T VISIT HIGH/URGE NT SEVERITY EMERGENCY 41936 DIANNA ARBOLEDA 5 5 [facility] T VISIT P LOW/MODER SEVERITY EMERGENCY 77739 DIANNA DEAN, 5 5 [facility] [facility] VISIT P [facility] - 5 5 [facility] OUTPATIEN INC T EMERGENCY [id number] DIANNA 5 5 [facility] T VISIT LOW/MODER SEVERITY
--- OUTSIDE RECORDS SUMMARY | 2016-10-10 12:35 | External Medical Summary Rpt ---
Author Author , Organization [employer] Address Unknown Phone Unavailable Care Team Providers Care Stock Roller Name Role Phone A Kaelyn HERRERA MD PSC, A Unavailable Unavailable Kaelyn HERRERA MD PSC LELE MIRANDA Unavailable Unavailable KAEL SOSA MAY, SHEILA MAY Unavailable Unavailable BEINEKE MARCIA, BEINEKE Unavailable [...] MAT FAUGHN BUTTS, FAUGHN Unavailable Unavailable BUTTS SANCHEZ JERILYN, SANCHEZ Unavailable Unavailable JERILYN JR AISSATOU DEAN, Unavailable Unavailable JR AISSATOU DEAN HERLINDA, HERLINDA Unavailable Unavailable HERLINDA LYNDA, HERLINDA Unavailable Unavailable LYNDA RICK ARTI, RCIK Unavailable Unavailable ARTI [facility]available [facility], [facility] YULI RHO, YULI Unavailable Unavailable RHO [facility], Unavailable Unavailable [facility] JUDD LAURA, JUDD Unavailable Unavailable LAURA [facility], Unavailable Unavailable [facility], [facility] Unavailable Unavailable [facility]PITAL P, [facility] FELTON KOKI, FELTON KOKI Unavailable Unavailable [facility], Unavailable Unavailable [facility] Unavailable Unavailable IM[facility]ING [facility], [facility] KILPELA JEA, KILPELA Unavailable Unavailable JEA KURT ROBERT, Unavailable Unavailable KOSTELIC ROBERT [facility] Unavailable Unavailable [facility], [facility], Unavailable Unavailable [facility] MERHAR GAR, MERHAR Unavailable Unavailable GAR SELVIN JR COREY, SELVIN Unavailable Unavailable JR COREY NEELAM SHAYY, NEELAM SHAYY Unavailable Unavailable [facility], Unavailable [facility]available [facility], [facility] ZEINAB HOWARD, ZEINAB Unavailable Unavailable BAR PRETORIUS RITO, Unavailable Unavailable PRETORIUS RITO SAMEERA QUENTIN, SAMEERA QUENTIN Unavailable Unavailable RENUSCH PHILLIP, RENUSCH Unavailable Unavailable PHILLIP JAGRUTI, JAGRUTI Unavailable Unavailable SADEK MOH, SADEK MOH Unavailable Unavailable SCALF RITO, SCALF RITO Unavailable Unavailable LEVY JERILYN, LEVY Unavailable Unavailable JERILYN SOKAN BAB, SOKAN BAB Unavailable Unavailable SOTINGEANU, Unavailable Unavailable SOTINGEANU SOTINGEANU MARCIA, Unavailable Unavailable SOTINGEANU MARCIA [facility] Unavailable Unavailable [facility], [facility] Unavailable Unavailable EMERGENCY SERV, [facility] Unavailable Unavailable PHYSICIAN SERVI, [facility] TOLU NEWMAN, TOLU Unavailable Unavailable [facility], Unavailable Unavailable [facility] WALKER FOR, WALKER Unavailable Unavailable FOR WELLS, WELLS Unavailable Unavailable [facility]LLS SCO, [facility] Unavailable Unavailable ROSAURA BRANDY, ROSAURA Unavailable Unavailable BRANDY FIDENCIO, FIDENCIO Unavailable Unavailable Purpose Continuity of Care Document - 10-01-2014 through 2016 Problems Code Diagnosis DOS Provider Status N3000 ACUTE 09-08-2016 [facility] WITHOUT [facility] HEMATURIA N390 URINARY 09-08-2016 [facility] INFECTION [facility] SITE NOT SPECIFIED R21 RASH AND 09-08-2016 [facility] OTHER [facility], NONSPECIFIC PLLC SKIN ERUPTION N200 CALCULUS OF 08-10-2016 [facility] R1012 LEFT UPPER 08-10-2016 [facility] PAIN PLLC R1032 LEFT LOWER 08-10-2016 [facility] B86 SCABIES 07-04-2016 [facility] N12 TUBULO-INTE 06-08-2016 [facility] RST N EMERGENCY NEPHRITIS PHYS NOT SPEC ACUTE/CHRON R030 ELEVATED 06-03-2016 [facility] BLOOD-PRESS N EMERGENCY URE READING SERV WITHOUT DX HTN R0600 DYSPNEA 06-03-2016 [facility] [place] UNSPECIFIED RADIOLOGY R079 CHEST PAIN 06-03-2016 [facility] [place] UNSPECIFIED RADIOLOGY R1013 EPIGASTRIC 06-03-2016 [facility] PAIN N EMERGENCY SERV R112 NAUSEA WITH 06-03-2016 [facility] N EMERGENCY UNSPECIFIED SERV I10 ESSENTIAL 06-02-2016 [facility] HYPERTENSIO INC N J40 BRONCHITIS 03-12-2016 A Kaelyn HERRERA NOT PSC SPECIFIED ACUTE OR CHRONIC R05 COUGH 03-12-2016 A Kaelyn HERRERA MD PSC R109 UNSPECIFIED 02-23-2016 A Kaelyn HERRERA ABDOMINAL PSC PAIN E860 DEHYDRATION 02-22-2016 [facility] R1011 RIGHT UPPER 02-22-2016 [facility]IN [facility] [id number] ELEVATED 02-21-2016 A Kaelyn HERRERA WHITE BLOOD PSC CELL COUNT UNSPECIFIED R1010 UPPER 02-21-2016 A Kaelyn HERRERA ABDOMINAL PSC PAIN UNSPECIFIED R1110 VOMITING 02-21-2016 A Kaelyn HERRERA UNSPECIFIED PSC [id number] OTHER 02-14-2016 A Kaelyn HERRERA INSTABILITY [facility] LEFT ANKLE [id number] PAIN IN 02-14-2016 A Kaelyn HERRERA LEFT KNEE [facility] M545 LOW BACK 02-09-2016 A Kaelyn HERRERA PAIN [facility] H74100 PAIN IN 02-09-2016 A Kaelyn HERRERA RIGHT LEG [facility] F85005 PAIN IN 02-09-2016 A Kaelyn HERRERA LEFT LEG [facility] O91382 EFFUSION 02-07-2016 [facility] [id number] PAIN IN 02-07-2016 [facility] M7989 OTHER 02-07-2016 [facility] SPECIFIED MEDICAL SOFT TISSUE IMAGING ASS DISORDERS R300 DYSURIA 02-07-2016 [facility] G8929 OTHER 01-26-2016 A Kaelyn HERRERA CHRONIC [facility] PAIN N3090 CYSTITIS 01-19-2016 [place] [facility]PECIFIED SERV WITHOUT FOUNDATION HEMATURIA N289 DISORDER OF 01-09-2016 [facility] UNSPECIFIED R000 TACHYCARDIA 01-09-2016 [facility] U[facility]PECIFIED [facility] [id number] PERSONAL 01-09-2016 [place] [facility] SERV URINARY [facility]ATION CALCULI N209 URINARY 12-31-2015 [facility] CALCULUS [facility], UNSPECIFIED PLLC E17225 PAIN IN 11-10-2015 [facility] RIGHT [facility] X54718S SPRAIN 11-10-2015 [facility] UNSPEC [facility], LIGAMENT PLLC ROGHT ANKLE INITIAL ENC U47438S UNSPECIFIED 11-10-2015 [facility] INJURY MEDICAL RIGHT ANKLE IMAGING ASS INITIAL ENCOUNTER R319 HEMATURIA 10-07-2015 [facility] UNSPEC[facility], PLLC N8320 UNSPECIFIED 08-05-2015 [facility]IAN N EMERGENCY CYSTS PHYS N8329 OTHER 08-05-2015 [facility] [place] [facility] RADIOLOGY CYSTS R1031 RIGHT LOWER 08-05-2015 [facility] N EMERGENCY PAIN PHYS R1030 LOWER 08-04-2015 [facility] ABDOMINAL [facility], PAIN [facility] UNSPECIFIED M549 DORSALGIA 06-26-2015 [facility] UNSPECIFIED [facility]ICI[facility], [facility] R110 NAUSEA 06-26-2015 [facility] Z720 TOBACCO USE 06-26-2015 [facility] N23 UNSPECIFIED 06-16-2015 [facility] RENAL N EMERGENCY COLIC PHYS Z960 PRESENCE OF 06-16-2015 [facility] IMPLANTS HOSPITA N201 CALCULUS OF 05-20-2015 [facility] URETER [facility], [facility] E669 OBESITY 05-17-2015 [facility] UNSPECIFIED N PHYSICIAN SERVI N132 HYDRONEPHRO 05-17-2015 [facility] SIS W/RENAL N PHYSICIAN & URETRL SERVI CALCULOUS OBST N1330 UNSPECIFIED 05-17-2015 [facility] HYDRONEPHRO SIS N3001 ACUTE 05-17-2015 [facility] CYSTITIS N PHYSICIAN WITH SERVI HEMATURIA R6510 SYS INFLM 05-17-2015 [facility] RSPN SYND N PHYSICIAN NON-INF SERVI ORIG NO AC ORGN DYSF Z6841 BODY MASS 05-16-2015 [facility] INDEX BMI COMMUNTIY 40.0-44.9 HOSPITA ADULT J208 ACUTE 04-28-2015 [facility] BRONCHITIS [facility], DUE TO [facility] OTHER SPEC ORGANISMS K859 ACUTE 04-05-2015 [facility] PANCREATITI N EMERGENCY S PHYS UNSPECIFIED R9431 ABNORMAL 04-05-2015 [facility] ELECTROCARD COMM[facility] IOGRAM HOSPITA 5920 CALCULUS OF 02-26-2015 [facility] [place] [facility]NEY RADIOLOGY 5990 URINARY 02-26-2015 [facility] TRACT N EMERGENCY INFECTION PHYS SITE NOT SPECIFIED 39680 NAUSEA 02-26-2015 [facility] ALONE COMMUNTI[facility] HOSPITA 46621 DIARRHEA 02-26-2015 [facility] 16153 ABDOMINAL 02-26-2015 [facility] PAIN RIGHT N EMERGENCY LOWER PHYS QUADRANT V1301 PERSONAL 02-26-2015 [facility] HISTORY OF COMMUNTIY URINARY HOSPITA CALCULI V1582 PERS HX 02-26-2015 [facility] TOBACCO USE COMMUNTIY PRESENTING HOSPITA [facility] 4019 UNSPECIFIED 02-19-2015 [facility] HYPERTENSIO INC N 5275 SIALOLITHIA 02-19-2015 [facility] SIS [facility], PLLC 6202 OTHER AND 02-14-2015 [facility] UNSPECIFIED [facility]ICIANS, OVARIAN PLLC CYST 52493 ABDOMINAL 12-11-2014 [facility] PAIN OTHER MEDICAL SPECIFIED IMAGING ASS SITE 85260 ABDOMINAL 12-10-2014 [facility] PAIN, LEFT [facility] LOWER INC QUADRANT 0419 BACTERIAL 11-26-2014 [place] [facility] INFE[facility] SERV UNSPECIFIED FOUNDATION CCE & UNS SITE 69019 UNSPECIFIED 11-26-2014 [facility] PYELONEPHRI TIS V4579 OTHER 11-26-2014 [facility] ABSENCE OF ORGAN 91779 ABDOMINAL 11-21-2014 [facility] [place] PAIN, RADIOLOGY UNSPECIFIED SITE 37984 ABDOMINAL 11-20-2014 [facility], N EMERGENCY PERIUMBILIC PHYS 13638 ABDOMINAL 11-16-2014 [facility], MEDICAL EPIGASTRIC IMAGING ASS 31450 NAUSEA WITH 11-14-2014 [facility] VOMITING COMMUNTIY HOSPITA 5589 OTH&UNSPEC 10-31-2014 [facility] NONINFECTIO [facility]ICIANS, [facility] ITIS&COLITI S 7242 LUMBAGO 10-19-2014 [facility] P 83730 ABDOMINAL 10-19-2014 [place] PAIN, LEFT [facility] P QUADRANT 5921 CALCULUS OF 10-01-2014 [facility] 7295 PAIN IN 10-01-2014 [facility] SOFT MEDICAL TISSUES OF IMAGING ASS LIMB 8449 SPRAIN&STRA 10-01-2014 [facility] IN OF [facility] UNSPECIFIED INC SITE OF KNEE&LEG 9597 INJURY 10-01-2014 [facility] OTHER&UNSPE MEDICAL CIFIED KNEE IMAGING ASS LEG ANKLE&FOOT Medications Na ND Rx Da Fi Fi [...] HI 0 AN MG A IN C MD 59 04 04 10 5 00 EA Ac ED 74 -0 -[address] ti NI 60 3- 8- 00 00 SI ve SO 17 20 20 48 DE NE 50 17 17 23 6 18 PH 20 AR MA MG CY TA OF BL CY ET NT HI AN A IN C CY 00 04 04 60 15 00 EA Ac CL 37 -0 -[address] ti OB 80 4- 8- 00 00 SI ve EN 75 20 20 48 DE ZA 11 17 17 23 MD 0 48 PH IN AR E MA 10 CY MG OF CY TA NT BL HI ET AN A IN C MD 65 04 04 60 30 00 EA Ac OM 16 -0 -[address] ti ET 20 4- 8- 00 00 SI ve CAN 52 20 20 48 DE ZI 11 17 17 23 NE 1 79 PH AR 25 MA CY MG OF TA CY BL NT ET HI AN A IN C SM 49 01 02 60 2 00 EA Ac 34 -2 -[address] ti LI 80 6- 4- 00 00 SI ve CE 15 20 20 47 DE 07 17 17 38 TR 8 35 PH EA AR TM MA EN CY T 1% OF CY CR NT M HI RI AN NS A E IN C NI 16 01 02 10 5 00 EA Ac TR 71 -2 -[address] ti OF 40 6- 4- 00 00 SI ve UR 43 20 20 47 DE AN 90 17 17 38 TO 1 36 PH IN AR MA MO CY NO -M OF CR CY NT 10 HI 0 AN MG A IN C CI 16 12 01 14 7 00 EA Ac MD 71 -3 -[address] ti [...] 47 DE RA 30 16 17 07 ME 5 45 PH DE AR MA 10 [...] Procedure [place] [address] [facility] ABDOMEN & 7 MEDICAL PELVIS IMAGING W/O ASS CONTRAST MATERIAL ECG 25418 [facility] ROUTINE 6 SAMANTHA ECG EMERGENCY W/LEAST SERV 12 LDS I&R ONLY RADIOLOGI 27618 [facility] [place] FIDENCIO C 6 RADIOLOGY EXAMINATI ON CHEST SINGLE VIEW FRONTAL UNCLASSIF J3490 [facility] IED DRUGS 6 [facility] INC INC CULTURE 52033 [facility] BACTERIAL 6 [facility] INC INC QUANTTATI VE COLONY COUNT URINE URINE 90011 [facility] BUSTAMANTE 6 [facility] TEST INC INC VISUAL COLOR CMPRSN METHS URNLS DIP 45109 [facility] BUSTAMANTE 6 [facility] STICK/TAB INC [place] [address] [facility] JOCY SCRUGGSNEY ABDOMEN & 6 RADIOLOGY III [facility] PELVIS W/O CONTRAST MATERIAL OBSERVATI 26142 A Kaelyn RICHTER SHAYY ON/INPATI 6 JAVIER ROMAN ENT [facility] H[facility] C[place] [address] [place] [address] [facility] KAYLA ABDOMEN & 6 MEDICAL WOLFGANG PELVIS IMAGING W/O ASS CONTRST 1/> BODY RE THERAPEUT 28182 A C MERLINE IC 6 [facility] CHI PROPHYLAC PSC TIC/DX INJECTION SUBQ/IM URINLS 75884 A C MERLINE DIP 6 [facility] STICK/TAB PSC LET REAGNT NON-AUTO MICRSCPY INJECTION J2550 A Kaelyn RICK 6 [facility] PROMETHAZ PSC INE HCL UP TO [address] [place] [address] [facility] LIPASE 6 [facility] [place] [address] [facility] AMYLASE 6 [facility] INC INC COMPREHEN 42104 [facility] B[facility] SIVE 6 [facility] METABOLIC INC INC PANEL COLLECTIO 64341 [facility] N VENOUS 6 [facility] BLOOD INC INC VENIPUNCT URE BLOOD 90863 [facility] COUNT 6 [facility] COMPLETE INC INC AUTO&AUTO DIFRNTL WBC URINLS 97850 A C MERLINE DIP 6 [facility] CHI STICK/TAB [place] [address] [facility] RETROPERI 6 [facility] TONEAL INC INC REAL TIME W/[place] [address] ROBERTA CONNORS ALL RETROPERI 6 MEDICAL TONEAL IMAGING REAL TIME ASS W/IMAGE LIMITED MRI ANY 95968 [facility] JT LOWER 6 [facility] EXTREM INC INC W/O CONTRAST MATRL BLOOD 05093 A C RICK COUNT 6 [facility] COMPLETE PSC AUTO&AUTO DIFRNTL WBC INJECTION J0696 A C RICK 6 [facility] CHI CEFTRIAXO PSC NE SODIUM PER 250 MG URINLS 28657 A C RICK DIP 6 [facility] STICK/TAB PSC LET REAGNT NON-AUTO MICRSCPY THERAPEUT 51526 A C MERLINE IC 6 [facility] CHI PROPHYLAC PSC TIC/DX INJECTION SUBQ/IM THERAPEUT 37589 A C MERLINE IC 6 [facility] CHI PROPHYLAC PSC TIC/DX INJECTION SUBQ/IM URINLS 15289 A C MERLINE DIP 6 [facility]I STICK/TAB PSC LET REAGNT NON-AUTO MICRSCPY INJECTION J0696 A C MERLINE 6 JVAIER CHI CEFTRIAXO PSC NE SODIUM PER 250 MG BLOOD 27411 A C RICK COUNT 6 [facility] CHI COMPLETE PSC AUTO&AUTO DIFRNTL WBC SUSCEPTIB 68436 [facility] LTY STDY 6 ROSY ROSY ANTIMICRB HOLDINGS HOLDINGS IAL MICRO/AGA R DILUTJ CUL BACT 88505 [facility] AEROBIC 6 [facility] ROSY ADDL HOLDINGS HOLDINGS METHS DEFINITIV E EA ISOL CULTURE 99946 [facility] BCT 6 ROSY ROSY ISOL&PRSM HOLDINGS HOLDINGS PTV ID ISOLATE EA URINE CULTURE 63540 [facility] BACTERIAL 6 ROSY ROSY HOLDINGS HOLDINGS QUANTTATI VE COLONY COUNT URINE INJECTION J0696 A C MERLINE 6 J[facility]IER CHI CEFTRIAXO PSC NE SODIUM PER 250 MG URINLS 31117 A C RICK DIP 6 [facility] CHI STICK/TAB PSC LET REAGNT NON-AUTO MICRSCPY THERAPEUT 63422 A C MERLINE IC 6 [facility] CHI PROPHYLAC PSC TIC/DX INJECTION SUBQ/IM INJECTION J2550 A C A C 6 JAVIER HERRERA MD PROMETHAZ PSC PSC INE HCL UP [place] [address] [place] [address] ROBERTA CONNORS ALL ABDOMEN & 6 MEDICAL PELVIS IMAGING W/O ASS CONTRAST MATERIAL URINLS 67114 A C KILPELA DIP 6 JAVIER ROMAN JELynn STICK/TAB PSC LET REAGNT NON-AUTO MICRSCPY RADEX 84532 [facility] ALL SPINE 6 MEDICAL LUMBOSACR IMAGING AL 2/3 ASS VIEWS RADEX 28121 [facility] SPINE 6 [facility] LUMBOSACR INC INC AL MINIMUM 4 VIEWS RADEX 25347 [facility] ANKLE 6 [facility] COMPLETE INC INC MINIMUM 3 VIEWS RADIOLOGI 81043 [facility] KAYLA C 6 MEDICAL WOLFGAGN EXAMINATI IMAGING ON ANKLE ASS 2 VIEWS RADEX 64471 [place] MERHAR FOOT 6 MEDICAL GAR COMPLETE SERV MINIMUM 3 FOUNDATIO VIEWS N RADEX 00609 [place] MERHAR ANKLE 6 MEDICAL GAR COMPLETE SERV MINIMUM [address] [place] [address] [facility] [place] JAM ABDOMEN & 6 RADIOLOGY PELVIS W/O CONTRAST MATERIAL URINLS 63824 A C MERLINE DIP 6 [facility] CHI STICK/TAB [place] [address] [place] PAWLEY RETROPERI 6 MEDICAL BAR TONEAL SERV REAL TIME FOUNDATIO W/[place] [address] [facility] [place] SCALF RITO ABDOMEN & 6 RADIOLOGY PELVIS W/[place] [address] [facility] SHEILAINEMORAIMA ABDOMEN & 6 MEDICAL MARCIA PELVIS IMAGING W/O ASS CONTRAST MATERIAL COMPREHEN 62708 [facility] SIVE 6 [facility] METABOLIC INC INC PANEL URNLS DIP 42974 [facility] BUSTAMANTE 6 [facility] STICK/TAB INC INC LET REAGENT AUTO MICROSCOP Y THER 16379 [facility] PROPH/DX 6 [facility] NJX IV INC INC PUSH SINGLE/1S T SBST/DRUG CULTURE 20312 [facility] BACTERIAL 6 [facility] INC INC QUANTTATI VE COLONY COUNT URINE UNCLASSIF J3490 [facility] IED DRUGS 6 [facility] INC INC BLOOD 68801 [facility] COUNT 6 [facility] COMPLETE INC INC AUTO&AUTO DIFRNTL WBC COLLECTIO 42719 [facility] N VENOUS 6 [facility] BLOOD INC INC VENIPUNCT URE THERAPEUT 23779 [facility] B[facility] IC 6 [facility] INJECTION INC [place] [address] [facility] KAYLA ABDOMEN & 6 MEDICAL WOLFGANG PELVIS IMAGING W/O ASS CONTRAST MATERIAL RADIOLOGI 97637 [facility] CONNORS ALL C 6 MEDICAL EXAMINATI IMAGING [place] [address] [place] [address] [facility] BEINEKE ABDOMEN & 6 MEDICAL MARCIA PELVIS IMAG[place] [address] [facility] [place] YULI ABDOMEN & 6 RADIOLOGY RHO PELVIS W/[place] [address] [facility] [place] FU ABDOMEN & 6 RADIOLOGY CAR PELVIS W/O CONTRAST MATERIAL BASIC 31104 [facility] METABOLIC 6 [facility] PANEL INC INC CALCIUM TOTAL THERAPEUT 42456 [facility] IC 6 [facility] PROPHYLAC INC INC TIC/DX INJECTION SUBQ/IM UNCLASSIF J3490 DIANNAEDITH PALACIOSON IED DRUGS 6 [facility] INC INC BLOOD 55859 [facility] COUNT 6 [facility] COMPLETE INC INC AUTO&AUTO DIFRNTL WBC COLLECTIO 91640 [facility] PALACIOSON N VENOUS 6 [facility] BLOOD INC INC VENIPUNCT URE COLLECTIO 52884 [facility] N VENOUS 6 N N BLOOD COMMUNTIY COMMUNTIY VENIPUNCT HOSPITA HOSPITA URE URNLS DIP 77471 [facility] 6 N N STICK/TAB COMMUNTIY COMMUNTIY LET HOSPITA HOSPITA REAGENT AUTO MICROSCOP Y THERAPEUT 30777 [facility] IC 6 N N INJECTION COMMUNTIY COMMUNTIY IV [place] [address] [facility] INFUSION 6 N N THERAPY/P COMMUNTIY COMMUNTIY ROPHYLAXI HOSPITA HOSPITA S /DX 1ST TO 1 HR BLOOD 88691 [facility] COUNT 6 N N COMPLETE COMMUNTIY COMMUNTIY AUTO&AUTO HOSPITA HOSPITA DIFRNTL WBC CUL BACT 11212 [facility] AEROBIC 6 N N ADDL COMMUNTIY COMMUNTIY METHS HOSPITA HOSPITA DEFINITIV E EA ISOL SUSCEPTIB 11725 [facility] LTY STDY 6 N N ANTIMICRB COMMUNTIY COMMUNTIY IAL HOSPITA HOSPITA MICRO/AGA R DILUTJ CULTURE 56456 [facility] BACTERIAL 6 N N COMMUNTIY COMMUNTIY QUANTTATI HOSPITA HOSPITA VE COLONY COUNT URINE URINE 62423 [facility] 6 N N TEST COMMUNTIY COMMUNTIY VISUAL HOSPITA HOSPITA COLOR CMPRSN METHS COMPREHEN 05731 [facility] SIVE 6 N N METABOLIC COMMUNTIY [place] [address] [facility] INFUSION 6 N N HYDRATION COMMUNTIY COMMUNTIY EACH [place] [address] [facility] INFUSION 6 N N THER COMMUNTIY COMMUNTIY PROPH HOSPITA HOSPITA ADDL [place]ENT[place] [address] [place] [address] [facility] [place] ABDOMEN & 6 RADIOLOGY RAY PELVIS W/[place] [address] [facility] LIPASE 5 N N COMM[place] [address] [facility] INFUSION 5 N N HYDRATION COMMUNTIY COMMUNTIY EACH HOSPITA HOSPITA ADDITIONA L HOUR INJECTION J2550 [facility] 5 N N PROMETHAZ COMMUNTIY COMMUNTIY INE HCL HOSPITA HOSPITA UP TO 50 MG COMPREHEN 26323 [facility] SIVE 5 N N METABOLIC COMMUNTIY COMMUNTIY PANEL HOSPITA HOSPITA THER 66077 [facility] PROPH/DX 5 N N NJX EA COMMUNTIY COMMUNTIY SEQL IV HOSPITA HOSPITA PUSH SBST/DRUG FAC URNLS DIP 15935 [facility] 5 N N STICK/TAB COMMUNTIY COMMUNTIY LET HOSPITA 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 REAGENT AUTO MICROSCOP Y CULTURE 78030 [facility] BACTERIAL 5 N N COMMUNTIY COMMUNTIY QUANTTATI HOSPITA HOSPITA VE COLONY COUNT URINE BLOOD 33215 [facility] COUNT 5 N N COMPLETE COMMUNTIY COMMUNTIY AUTO&AUTO HOSPITA HOSPITA DIFRNTL WBC INJECTION J2270 [facility] MORPHINE 5 N N SULFATE COMMUNTIY COMMUNTIY UP TO [place] [address] [facility] INFUSION 5 N N THERAPY/P COMMUNTIY COMMUNTIY ROPHYLAXI HOSPITA HOSPITA S /DX 1ST TO 1 HR THERAPEUT 54520 [facility] IC 5 N N INJECTION COMMUNTIY COMMUNTIY IV PUSH HOSPITA HOSPITA EACH NEW DRUG COLLECTIO 62526 [facility] N VENOUS 5 N N BLOOD COMMUNTIY COMMUNTIY VENIPUNCT HOSPITA HOSPITA URE RADEX [id number] DIANNA BUSTAMANTE ABDOMEN 1 5 [facility] ANTEROPOS TERIOR VIEW PROTHROMB 63814 [facility] IN TIME 5 N N COMMUNTIY COMMUNTIY HOSPITA HOSPITA INJECTION J1100 [facility] 5 N N DEXAMETHO COMMUNTIY COMMUNTIY SONE HOSPITA HOSPITA SODIUM PHOSPHATE 1 MG INJECTION J1170 [facility] 5 N N HYDROMORP COMMUNTIY COMMUNTIY RON UP HOSPITA HOSPITA TO 4 MG INJECTION J2001 [facility] 5 N N LIDOCAINE COMMUNTIY COMMUNTIY HCL HOSPITA HOSPITA INTRAVENO US INFUS 10 MG COLLECTIO [id number] [facility] N VENOUS 5 N N BLOOD COMMUNTIY COMMUNTIY VENIPUNCT HOSPITA HOSPITA URE BLOOD 35377 [facility] COUNT 5 N N HEMATOCRI COMMUNTIY COMMUNTIY T HOSPITA HOSPITA BLOOD 37269 [facility] COUNT 5 N N HEMOGLOBI COMMUNTIY COMMUNTIY N HOSPITA HOSPITA OBSERVATI 92640 [facility] ON CARE 5 SAMANTHA A GOP DISCHARGE PHYSICIAN SERVI MANAGEMEN T INJECTION J2704 [facility] PROPOFOL 5 N N 10 MG COMMUNTIY COMMUNTIY HOSPITA HOSPITA THER 05271 [facility] PROPH/DX 5 N N NJX EA COMMUNTIY COMMUNTIY SEQL IV HOSPITA HOSPITA PUSH SBST/DRUG FAC BASIC 32200 [facility] METABOLIC 5 N N PANEL COMMUNTIY COMMUNTIY CALCIUM HOSPITA HOSPITA TOTAL INJ J2543 [facility] PIPERACIL 5 N N MEGHAN COMMUNTIY COMMUNTIY SOD/TAZOB HOSPITA HOSPITA ACTAM SOD 1 G/0.125 G INJECTION J2550 [facility] 5 N N PROMETHAZ COMMUNTIY COMMUNTIY INE HCL HOSPITA HOSPITA UP TO 50 MG INJECTION J2550 [facility] 5 N N PROMETHAZ COMMUNTIY COMMUNTIY INE HCL HOSPITA HOSPITA UP TO 50 MG INJ J2543 [facility] PIPERACIL 5 N N MEGHAN COMMUNTIY COMMUNTIY SOD/TAZOB HOSPITA HOSPITA ACTAM SOD 1 G/0.125 G SBSQ 93578 [facility] OBSERVATI 5 SAMANTHA A GOP ON PHYSICIAN CARE/DAY SERVI 35 MINUTES CYSTO 84561 [facility] W/URETERO 5 N N SCOPY COMMUNTIY COMMUNTIY W/RMVL/[place] [address] [facility] SCAL[place] RITO ABDOMEN & 5 RADIOLOGY PELVIS W/O CONTRAST MATERIAL COMPREHEN 82521 [facility] SIVE 5 N N METABOLIC COMMUNTIY COMMUNTIY PANEL HOSPITA HOSPITA DILATION 17562 VASQUEZ VASQUEZ NEPHROSTO 5 ALPESH ALPESH MY/URETER /URETHRA RS&I THER 95680 [facility] PROPH/DX 5 N N NJX EA COMMUNTIY COMMUNTIY SEQL IV HOSPITA HOSPITA PUSH SBST/DRUG FAC URINE 05083 [facility] 5 N N TEST COMMUNTIY COMMUNTIY VISUAL HOSPITA HOSPITA COLOR CMPRSN METHS STENT C2617 [facility] NON-COR 5 N N TEMPORARY COMMUNTIY COMMUNTIY WITHOUT HOSPITA HOSPITA DELIVERY SYSTEM ANES 66165 [place] LEVY TRURL 5 ANESTHESI JERILYN FRAGMNTJ A GROUP MANJ&/RMV PS L URETERAL CALCULUS CYSTO 66769 [facility] [facility] W/INSERT 5 N N URETERAL COMMUNTIY COMMUNTIY STENT HOSPITA HOSPITA TOBACCO 82394 [facility] USE 5 N N CESSATION COMMUNTIY COMMUNTIY HOSPITA HOSPITA INTERMEDI ATE 3-10 MINUTES INJECTION [id number] [facility] 5 N N CEFTRIAXO COMMUNTIY COMMUNTIY NE SODIUM HOSPITA HOSPITA PER 250 MG BLOOD 31188 [facility] COUNT 5 N N COMPLETE COMMUNTIY COMMUNTIY AUTO&AUTO HOSPITA HOSPITA DIFRNTL WBC INFUSION J7030 [facility] NORMAL 5 N N SALINE COMMUNTIY COMMUNTIY SOLUTION HOSPITA HOSPITA 1000 CC URNLS DIP 34121 [facility] 5 N N STICK/TAB COMMUNTIY COMMUNTIY LET HOSPITA HOSPITA REAGENT AUTO MICROSCOP Y COLLECTIO 48013 [facility] N VENOUS 5 N N BLOOD COMMUNTIY COMMUNTIY [place] [address] [facility] INFUSION 5 N N THERAPY/P COMMUNTIY COMMUNTIY ROPHYLAXI HOSPITA HOSPITA S /DX 1ST TO 1 HR CALCULUS 79571 [facility] QUANTITAT 5 N N DEVYN COMMUNTIY COMMUNTIY CHEMICAL HOSPITA HOSPITA RINGERS J7120 [facility] LACTATE 5 N N INFUSION COMMUNTIY COMMUNTIY UP TO HOSPITA HOSPITA 1000 CC CULTURE 60501 [facility] BACTERIAL 5 N N COMMUNTIY COMMUNTIY QUANTTATI HOSPITA HOSPITA VE COLONY COUNT URINE INJECTION J1170 [facility] 5 N N HYDROMORP COMMUNTIY COMMUNTIY RON UP HOSPITA HOSPITA TO 4 MG GUIDE C1769 [facility] WIRE 5 N N COMMUNTIY COMMUNTIY HOSPITA HOSPITA INTRODUCT 70162 [facility] ION 5 SAMANTHA JERILYN NEEDLE/IN EMERGENCY TRACATHET PHYS ER VEIN CULTURE 44808 [facility] BACTERIAL 5 N N BLOOD COMMUNTIY COMMUNTIY AEROBIC HOSPITA HOSPITA W/ID ISOLATES INJECTION J1170 [facility] 5 N N HYDROMORP COMMUNTIY COMMUNTIY RON UP HOSPITA HOSPITA TO 4 MG CULTURE 85265 [facility] BACTERIAL 5 N N COMMUNTIY COMMUNTIY QUANTTATI HOSPITA HOSPITA VE COLONY COUNT URINE THROMBOPL 70041 [facility] ASTIN 5 N N TIME COMMUNTIY COMMUNTIY PARTIAL HOSPITA HOSPITA PLASMA/WH OLE BLOOD THERAPEUT 35650 [facility] IC 5 N N INJECTION COMMUNTIY COMMUNTIY IV PUSH HOSPITA HOSPITA EACH NEW DRUG COLLECTIO 90470 [facility] N VENOUS 5 N N BLOOD COMMUNTIY COMMUNTIY VENIPUNCT HOSPITA [facility]OSPITA [facility] [id number] [facility] OBSERVATI 5 N N ON COMMUNTIY COMMUNTIY SERVICE HOSPITA HOSPITA PER HOUR URNLS DIP 22127 [facility] 5 N N STICK/TAB COMMUNTIY COMMUNTIY LET HOSPITA HOSPITA REAGENT AUTO MICROSCOP Y INFUSION J7030 [facility] NORMAL 5 N N SALINE COMMUNTIY COMMUNTIY SOLUTION HOSPITA HOSPITA 1000 CC BLOOD 71706 [facility] COUNT 5 N N COMPLETE COMMUNTIY COMMUNTIY AUTO&AUTO HOSPITA HOSPITA DIFRNTL WBC INJECTION J2270 [facility] MORPHINE 5 N N SULFATE COMMUNTIY COMMUNTIY UP TO 10 HOSPITA HOSPITA MG THER 40021 [facility] PROPH/DX 5 N N NJX EA COMMUNTIY COMMUNTIY SEQL IV HOSPITA HOSPITA PUSH SBST/DRUG FAC THERAPEUT 13636 [facility] IC 5 N N PROPHYLAC COMMUNTIY COMMUNTIY TIC/DX HOSPITA HOSPITA INJECTION SUBQ/IM COMPREHEN 24183 [facility] SIVE 5 N N METABOLIC COMMUNTIY [place] [address] [place] ABDOMEN & 5 [facility] PELVIS IMAGING W/O ASS CONTRAST MATERIAL INJ J2543 [facility] PIPERACIL 5 N N MEGHAN COMMUNTIY COMMUNTIY SOD/TAZOB HOSPITA HOSPITA ACTAM SOD 1 G/0.125 G INITIAL 25930 [facility] OBSERVATI 5 SAMANTHA A GOP ON PHYSICIAN CARE/DAY SERVI 70 MINUTES INJECTION J2550 [facility] 5 N N PROMETHAZ COMMUNTIY COMMUNTIY INE HCL HOSPITA HOSPITA UP TO 50 MG URINE 51198 DI[facility]NA [facility]USTAMANTE 5 [facility] TEST INC INC VISUAL COLOR CMPRSN METHS URNLS DIP 42778 [facility]USTAMANTE 5 [facility] STICK/TAB INC INC LET REAGENT AUTO MICROSCOP Y CULTURE 56762 DIANNA BUSTAMANTE BACTERIAL 5 [facility] INC INC QUANTTATI VE COLONY COUNT URINE UNCLASSIF J3490 DIANNA BUSTAMANTE IED DRUGS 5 [facility] INC INC URNLS DIP 74606 [facility] 5 N N STICK/TAB COMMUNTIY COMMUNTIY LET HOSPITA HOSPITA REAGENT AUTO MICROSCOP Y URINE 59378 [facility] 5 N N TEST COMMUNTIY COMMUNTIY VISUAL HOSPITA HOSPITA COLOR CMPRSN METHS INJECTION J2550 [facility] 5 N N PROMETHAZ COMMUNTIY COMMUNTIY INE HCL HOSPITA HOSP[place] [address] [place] [address] [facility] INFUSION 5 N N HYDRATION COMMUNTIY COMMUNTIY EACH HOSP[place] [address] [facility] LIPASE 5 N N COMMUNTIY COMMUNTIY HOSPITA HOSPITA COMPREHEN 10117 [facility] SIVE 5 N N METABOLIC COMMUNTIY COMMUNTIY PANEL HOSPITA HOSPITA CULTURE 76591 [facility] BACTERIAL 5 N N COMMUNTIY COMMUNTIY QUANTTATI HOSPITA HOSPITA VE COLONY COUNT URINE BLOOD 36835 [facility] COUNT 5 N N COMPLETE COMMUNTIY COMMUNTIY AUTOMATED HOSPITA HOSPITA ECG 33649 [facility] ROUTINE 5 N N ECG COMMUNTIY COMMUNTIY W/LEAST HOSPITA HOSPITA 12 LDS TRCG ONLY W/O I&R ECG 82992 [facility] CELL[facility] ROUTINE 5 SAMANTHA - YORBA ECG EMERGENCY PAT W/LEAST PHYS 12 LDS I&R ONLY INJECTION J2270 [facility] MORPHINE 5 N N SULFATE COMMUNTIY COMMUNTIY UP TO 10 HOSPITA HOSPITA MG BLOOD 14211 [facility] COUNT 5 N N SMEAR COMMUNTIY COMMUNTIY MCRSCP HOSPITA HOSPITA W/MNL DIFRNTL WBC COUNT INFUSION J7030 [facility] NORMAL 5 N N SALINE COMMUNTIY COMMUNTIY SOLUTION HOSPITA HOSPITA 1000 CC COLLECTIO 37041 [facility] N VENOUS 5 N N BLOOD COMMUNTIY COMMUNTIY VENIPUNCT HOSPITA HOSPITA URE THERAPEUT 74685 [facility] IC 5 N N INJECTION COMMUNTIY COMMUNTIY IV [place] [address] [facility] INFUSION 5 N N THERAPY/P COMMUNTIY COMMUNTIY ROPHYLAXI HOSPITA HOSPITA S /DX 1ST TO 1 HR COLLECTIO 58707 [facility] N VENOUS 5 N N BLOOD COMMUNTIY COMMUNTIY VENIPUNCT HOSPITA HOSPITA URE INFUSION J7030 [facility] NORMAL 5 N N SALINE COMMUNTIY COMMUNTIY SOLUTION HOSPITA HOSPITA 1000 CC BLOOD 74415 [facility] COUNT 5 N N COMPLETE COMMUNTIY COMMUNTIY AUTO&AUTO HOSPITA HOSPITA DIFRNTL WBC INJECTION J2270 [facility] MORPHINE 5 N N SULFATE COMMUNTIY COMMUNTIY UP TO 10 HOSPITA HOSPITA MG CULTURE 75417 [facility] BACTERIAL 5 N N COMMUNTIY COMMUNTIY QUANTTATI HOSPITA HOSPITA VE COLONY COUNT URINE COMPREHEN 24787 [facility] SIVE 5 N N METABOLIC COMMUNTIY COMMUNTI[place] [address] [facility] LIPASE 5 N N [place] [address] [place] JUDD ABDOMEN & 5 RADIOLOGY LAUR[place] PEL[place] [address] [facility] INFUSION 5 N N HYDRATION COMMUNTIY COMMUNTIY EACH HOSPITA HOSPITA ADDITIONA L HOUR URINE 39132 [facility] 5 N N TEST COMMUNTIY COMMUNTIY VISUAL HOSPITA HOSPITA COLOR CMPRSN METHS THER 89282 [facility] PROPH/DX 5 N N NJX IV COMMUNTIY COMMUNTIY PUSH HOSPITA HOSPITA SINGLE/1S T SBST/DRUG URNLS DIP 04626 [facility] 5 N N STICK/TAB COMMUNTIY COMMUNTIY LET HOSPITA HOSPITA REAGENT AUTO MICROSCOP Y UNCLASSIF J3490 DIANNA BUSTAMANTE IED DRUGS 5 [place] [address] [place] ABDOMEN & 5 [facility] PELVIS IMAGING W/[place] [address] [facility]AN[facility] B[facility] LIPASE 5 [facility] INC COMPREHEN 54344 DIANAN BUSTAMANTE SIVE 5 [facility] [place] [address] DIANNA BUSTAMANTE AMYLASE 5 [facility] INC BLOOD 91161 DIANNA DIANNA COUNT 5 [facility] COMPLETE INC INC AUTO&AUTO DIFRNTL WBC CULTURE 57152 DIANNA BUSTAMANTE BACTERIAL 5 [facility] INC INC QUANTTATI VE COLONY COUNT URINE URNLS DIP 75467 DI[facility]USTAMANTE 5 [facility] STICK/TAB INC INC LET REAGENT AUTO MICROSCOP Y URINE 75366 DIANNA BUSTAMANTE 5 [facility] TEST INC INC VISUAL COLOR CMPRSN METHS UNCLASSIF J3490 DIANNA BUSTAMANTE IED DRUGS 5 [facility] INC INC COMPREHEN 83295 DIANNA BUSTAMANTE SIVE 5 [facility] [place] [address] DIANNA BUSTAMANTE LIPASE 5 [facility] INC INC BLOOD 71168 DIANNA BUSTAMANTE COUNT 5 [facility] COMPLETE INC INC AUTO&AUTO DIFRNTL WBC URNLS DIP 76971 DIANNA [facility]USTAMANTE 5 [facility] STICK/TAB INC INC LET REAGENT AUTO MICROSCOP Y COLLECTIO 01907 DIANNA BUSTAMANTE N VENOUS 5 [facility] BLOOD INC INC VENIPUNCT URE URINE 09298 DIANNA BUSTAMANTE 5 [facility] TEST INC [place] [address] DIANNA BUSTAMANTE ABDOMEN & 5 [facility] PELVIS INC INC W/O CONTRAST MATERIAL URINE 45410 DIANNA BUSTAMANTE 5 [facility] TEST INC INC VISUAL COLOR CMPRSN METHS URNLS DIP 30106 DIANNA BUSTAMANTE 5 [facility] STICK/TAB INC INC LET REAGENT AUTO MICROSCOP Y INJECTION J1200 [facility] 5 Y Y [facility] RAMINE HCL UP TO 50 MG INJECTION J2270 [facility] MORPHINE 5 Y Y [facility] UP TO 10 MG INJECTION J1956 [facility] 5 Y Y LEVOFLOXA [facility] LETY 250 MG BLOOD 98290 [facility] COUNT 5 Y [facility] AUTOMATED INJECTION J2270 [facility] MORPHINE 5 Y Y SULFATE [facility] UP TO 10 MG INFUSION J7030 [facility] NORMAL 5 Y Y SALINE [facility] SOLUTION 1000 CC THERAPEUT 69426 [facility] IC 5 Y Y INJECTION [facility] [place] [address] [facility] INFUSION 5 Y Y THERAPY/P [facility] ROPHYLAXI S /DX 1ST TO 1 HR URNLS DIP 74036 [facility] 5 Y Y STICK/TAB [facility] LET REAGENT AUTO MICROSCOP Y INJECTION J2765 [facility] 5 Y Y METOCLOPR [facility] AMIDE HCL UP TO 10 MG URINE 71163 [facility] 5 Y Y TEST [facility] VISUAL COLOR CMPRSN METHS THER 75521 [facility] PROPH/DX 5 Y Y NJX EA [facility] SEQL IV PUSH SBST/DRUG FAC COMPREHEN 46358 [facility] SIVE 5 Y Y METABOLIC [facility] [address] [facility] LIPASE 5 [place] [address] [place] KOST[place] ABDOMEN & 5 RADIOLOGY ROBERT PELVIS W/[place] [address] DIANNA BUSTAMANTE ABDOMEN & 5 [facility] PELVIS INC INC W/[place] [address] DIANNA BUSTAMANTE AMYLASE 5 [facility] INC COMPREHEN 62908 DIANNA BUSTAMANTE SIVE 5 [facility] [address] DIANNA BUSTAMANTE LIPASE 5 [facility] INC INC URNLS DIP 98856 DIANNA BUSTAMANTE 5 [facility] STICK/TAB INC INC LET REAGENT AUTO MICROSCOP Y UNCLASSIF J3490 DIANNA BUSTAMANTE IED DRUGS 5 [place] [address] DIANNA BUSTAMANTE INFUSION 5 [facility] THERAPY/P INC INC ROPHYLAXI S /DX 1ST TO 1 HR THERAPEUT 26364 [facility]AN[facility] BUST[facility]ANTE IC 5 [facility] INJECTION INC INC IV PUSH EACH NEW DRUG BLOOD 52437 DI[facility] BUSTAMANTE COUNT 5 [facility] COMPLETE INC INC AUTO&AUTO DIFRNTL WBC PROTHROMB 39093 DIANNA BUSTAMANTE IN TIME 5 [facility] INC INC THROMBOPL 79056 DIANNA BUSTAMANTE ASTIN 5 [facility] TIME INC INC PARTIAL PLASMA/WH OLE BLOOD CULTURE 44294 DIAN[facility] BUSTAMANTE BACTERIAL 5 [facility] INC INC QUANTTATI VE COLONY COUNT URINE CULTURE 73834 [facility] BACTERIAL 5 N N COMMUNTIY COMMUNTIY QUANTTATI HOSPITA HOSPITA VE COLONY COUNT URINE BLOOD 70135 [facility] COUNT 5 N N COMPLETE COMMUNTIY COMMUNTIY AUTO&AUTO HOSPITA HOSPITA DIFRNTL WBC INJECTION J2270 [facility] MORPHINE 5 N N SULFATE COMMUNTIY COMMUNTIY UP TO 10 HOSPITA HOSPITA MG THERAPEUT 41107 [facility] IC 5 N N INJECTION COMMUNTIY COMMUNTIY [place] [address] [facility] ABDOMEN & 5 N N PELVIS COMMUNTIY COMMUNTIY W/CONTRAS HOSPITA HOSPITA T MATERIAL URNLS DIP 40045 [facility] 5 N N STICK/TAB COMMUNTIY COMMUNTIY LET HOSPITA HOSPITA REAGENT AUTO MICROSCOP Y INJECTION J2550 [facility] 5 N N PROMETHAZ COMMUNTIY COMMUNTIY INE HCL HOSPITA HOSPITA UP TO 50 MG URINE 59664 [facility] 5 N N TEST COMMUNTIY COMMUNTIY VISUAL HOSPITA [place] [address] [facility] LIPASE 5 N N COMMUNTIY COMMUNTIY HOSPITA HOSPITA LOCM Q9967 [facility] [phone] 5 N N MG/ML COMMUNTIY COMMUNTIY IODINE HOSPITA HOSPITA CONCENTRA TION PER ML COMPREHEN 41517 [facility] SIVE 5 N N METABOLIC COMMUNTIY COMMUNTIY [place] [address] [facility] AMYLASE 5 N N COMMUNTIY COMMUNTIY HOSPITA HOSPITA COMPREHEN 01879 DIANNA BUSTAMANTE SIVE 5 [facility] [address] DIANNA BUSTAMANTE AMYLASE 5 [place] [address] DIANNA BUSTAMANTE LIPASE 5 [facility] INC INC URINE 40525 DIANNA BUSTAMANTE 5 [facility] TEST INC INC VISUAL COLOR CMPRSN METHS URNLS DIP 27163 DIANNA BUSTAMANTE 5 [facility] STICK/TAB INC INC LET REAGENT AUTO MICROSCOP Y UNCLASSIF J3490 DIANNA BUSTAMANTE IED DRUGS 5 [facility] INC INC BLOOD 45178 DIANNA BUSTAMANTE COUNT 5 [facility] COMPLETE INC INC AUTO&AUTO DIFRNTL WBC CULTURE 66003 DIANNA BUSTAMANTE BACTERIAL 5 [facility] INC INC QUANTTATI VE COLONY COUNT URINE URNLS DIP 55232 DIANNA BUSTAMANTE 5 [facility] STICK/TAB INC INC LET REAGENT AUTO MICROSCOP Y UNCLASSIF J3490 DIANNA BUSTAMANTE IED DRUGS 5 [facility] INC INC URINE 43375 DI[facility] BUSTAMANTE 5 [facility] TEST [place] [address] DIANNA BUSTAMANTE ABDOMEN & 5 [facility] PELVIS INC INC W/O CONTRAST MATERIAL THER 30299 DIANNA BUSTAMANTE PROPH/DX 5 [facility] NJX IV INC INC PUSH SINGLE/1S T SBST/DRUG UNCLASSIF J3490 DIANNA BUSTAMANTE IED DRUGS 5 [facility] INC INC THERAPEUT 27864 DIANNA BUSTAMANTE IC 5 [facility] INJECTION INC INC IV PUSH EACH NEW DRUG RADIOLOGI 79394 DIANNA BUSTAMANTE C 5 [facility] EXAMINATI INC INC ON TIBIA & [place] [address] [place] [address] ROBERTA KAYLA ABDOMEN & 5 [facility] PELVIS IMAGING W/O ASS CONTRAST MATERIAL Encounters Encounter Start End Date Code Location Performer Type Date EMERGENCY 95047 [facility] 7 7 PHYSICIAN DEPARTMEN [facility] T VISIT HIGH/URGE NT SEVERITY EMERGENCY 24166 [facility] 7 7 SAMANTHA [facility] EMERGENCY T VISIT PHYS HIGH/URGE NT SEVERITY EMERGENCY 18296 [facility] DEPT 7 7 PHYSICIAN U VISIT [facility] HIGH SEVERITY& THREAT FUNCJ EMERGENCY 34395 [facility] 7 7 PHYSICIAN [facility] T VISIT HIGH/URGE NT SEVERITY EMERGENCY 76854 [facility] 6 6 SAMANTHA [facility] EMERGENCY T VISIT PHYS HIGH/URGE NT SEVERITY EMERGENCY 05665 [facility] DEPT 6 6 SAMANTHA VISIT EMERGENCY HIGH SERV SEVERITY& THREAT FUNCJ EMERGENCY 86494 [facility] 6 6 PHYSICIAN U [facility] T VISIT HIGH/URGE NT SEVERITY HOSPITAL DIANNA - 6 6 [facility] OUTPATIEN INC T EMERGENCY 55347 DIANNA 6 6 [facility] DEPARTMEN INC T VISIT LIMITED/M INOR PROB EMERGENCY 20062 [facility] DIANNA DEPT 6 6 SAMANTHA SCO VISIT EMERGENCY HIGH PHYS SEVERITY& THREAT FUNCJ OFFICE 62976 A Kaelyn LUCAS OUTPATIEN 6 6 JAVIER ROMAN T VISIT PSC 15 MINUTES EMERGENCY 79313 [facility] DEPT 6 6 PHYSICIAN U MARCIA VISIT [facility] HIGH SEVERITY& THREAT FUNCJ OFFICE 47528 A Kaelyn RICK OUTPATIEN 6 6 JAVIER [facility] T VISIT PSC 15 MINUTES OFFICE 11814 A Kaelyn RICK OUTPATIEN 6 6 [facility]IER [facility] VISIT PSC 15 MINUTES HOSPITAL DIANNA - 6 6 [facility] OUTPATIEN INC T OFFICE 24857 A C RICK OUTPATIEN 6 6 JAVIER [facility] T VISIT PSC 15 MINUTES OFFICE 22869 A C KILPELA OUTPATIEN 6 6 JAVIER LOGAN T VISIT PSC 15 MINUTES OFFICE 42190 A C RICK OUTPATIEN 6 6 JAVIER [facility] T VISIT PSC 15 MINUTES HOSPITAL DIANNA - 6 6 [facility] OUTPATIEN INC T OFFICE 01812 A C RICK OUTPATIEN 6 6 JAVIER [facility]I T VISIT PSC 15 MINUTES OFFICE 73397 A C RICK OUTPATIEN 6 6 JAVIER [facility]I T VISIT PSC 15 MINUTES OFFICE 87348 A C RICK OUTPATIEN 6 6 JAVIER [facility]I T VISIT PSC 15 MINUTES EMERGENCY 00189 L[facility] 6 6 PHYSICIAN LYNDA DEPARTMEN S, PLLC T VISIT HIGH/URGE NT SEVERITY HOSPITAL DI[facility] - 6 6 [facility] OUTPATIEN INC T OFFICE 88567 A C KILPELA OUTPATIEN 6 6 JAVIER LOGAN T VISIT PSC 25 MINUTES HOSPITAL DIANNA - 6 6 [facility] OUTPATIEN INC T OFFICE 27092 A C RICK OUTPATIEN 6 6 JAVIER CHI T VISIT PSC 15 MINUTES EMERGENCY 79872 JOCY HENNESSYI 6 6 MEDICAL DEPARTMEN SERV T VISIT FOUNDATIO MODERATE N SEVERITY EMERGENCY 04418 [facility] FAUSTINO YUMIKO 6 6 SAMANTHA DEPARTMEN EMERGENCY T VISIT PHYS HIGH/URGE NT SEVERITY OFFICE 21101 A C RICK OUTPATIEN 6 6 JAVIER Lewis NEW 30 PSC MINUTES EMERGENCY 98762 JOCY TAM 6 6 MEDICAL MAT DEPARTMEN SERV T VISIT FOUNDATIO HIGH/URGE N NT SEVERITY EMERGENCY 78469 [facility] NARESH BAB 6 6 SAMANTHA DEPARTMEN EMERGENCY T VISIT PHYS HIGH/URGE NT SEVERITY HOSPITAL DIANNA - 6 6 [facility] OUTPATIEN INC T EMERGENCY 58216 DIANNA 6 6 [facility] DEPARTMEN INC T VISIT HIGH/URGE NT SEVERITY EMERGENCY 12138 [facility] DEPT 6 6 PHYSICIAN LYNDA [facility]& THREAT FUNCJ EMERGENCY 90210 [facility] 6 6 PHYSICIAN U MARCIA DEPARTMEN S, PLLC T VISIT MODERATE SEVERITY EMERGENCY 30179 [facility] SCO 6 6 SAMANTHA DEPARTMEN EMERGENCY T VISIT SERV HIGH/URGE NT SEVERITY EMERGENCY 85490 [facility] 6 6 PHYSICIAN LYNDA DEPARTMEN S, PLLC T VISIT HIGH/URGE NT SEVERITY EMERGENCY 98568 [facility] 6 6 PHYSICIAN U MARCIA DEPARTMEN S, PLLC T VISIT MODERATE SEVERITY EMERGENCY 19477 [facility] 6 6 PHYSICIAN LYNDA DEPARTMEN S, PLLC T VISIT HIGH/URGE NT SEVERITY EMERGENCY 34613 L[facility] HOWELL 6 6 [facility] HIGH/URGE NT SEVERITY EMERGENCY 00396 DANNY ARNOLD 6 6 [facility] PHYS HIGH/URGE NT SEVERITY EMERGENCY 94299 LÁZARO CHACON DEPT 6 6 PHYSICIAN FOR VISIT S, PLLC HIGH SEVERITY& THREAT FUNCJ EMERGENCY 11936 LÁZARO PATE 6 6 PHYSICIAN LYNDA DEPARTMEN S, PLLC T VISIT HIGH/URGE NT SEVERITY EMERGENCY 07191 [facility] 6 6 SAMANTHA BRANDY DEPARTMEN EMERGENCY T VISIT PHYS HIGH/URGE NT SEVERITY [facility]OSPITAL [facility] - 6 6 [facility] OUTPATIEN INC T EMERGENCY 85413 LÁZARO RODAS [facility] 6 6 PHYSICIAN DEPARTMEN S, PLLC T VISIT HIGH/URGE NT SEVERITY EMERGENCY 50918 [facility] 6 6 [facility] DEPARTMEN INC T VISIT MODERATE SEVERITY EMERGENCY 62895 [facility] 6 6 N DEPARTMEN COMMUNTIY T VISIT HOSPITA HIGH/URGE NT SEVERITY EMERGENCY 31480 [facility] DEPT 6 6 SAMANTHA MON VISIT EMERGENCY HIGH PHYS SEVERITY& THREAT [facility] 6 6 N [facility] 5 [facility] 19794 [facility] DE[facility] 5 5 SAMANTHA VISIT EMERGENCY HIGH SERV SEVERITY& THREAT FUNJ EMERGENCY 48578 [facility] 5 5 N DEPARTMEN COMMUNTIY T VISIT HOSPITA HIGH/URGE NT SEVERITY [facility]OSPITAL [facility] - 5 5 [facility] OUTPATIEN INC T EMERGENCY 44967 LÁZARO PATE DEPT 5 5 PHYSICIAN LYNDA VISIT S, PLLC HIGH SEVERITY& THREAT FUNJ EMERGENCY 39337 [facility] 5 5 [facility] DEPARTMEN INC T VISIT LOW/MODER SEVERITY EMERGENCY 91129 [facility] DEPT 5 5 N VISIT COMMUNTIY HIGH HOSPITA SEVERITY& THREAT [facility] - 5 5 N OUTPATIEN COMMUNTIY T HOSPITA EMERGENCY 24148 LÁZARO OROZCO 5 5 PHYSICIAN BUTTS DEPARTMEN S, PLLC T VISIT MODERATE SEVERITY [facility]OSPITAL [facility] - 5 5 [facility] OUTPATI[facility] INC T EMERGENCY 08355 [facility] 5 5 [facility] DEPARTMEN INC T VISIT LOW/MODER SEVERITY EMERGENCY 26597 LÁZARO PATE 5 5 PHYSICIAN LYNDA [facility], [facility] H[facility]/URGE NT SEVERITY EMERGENCY 98395 LÁZARO WALTON 5 5 PHYSICIAN U MARCAI DEPARTMEN S, PLLC T VISIT MODERATE SEVERITY [facility]OSP[facility] - 5 5 [facility] OUT[facility] INC T EMERGENCY 42530 [facility] 5 5 [facility] DEPARTMEN INC T VISIT LOW/MODER SEVERITY EMERGENCY 61709 [facility] 5 5 N DEPARTMEN COMMUNTIY T VISIT HOSPITA HIGH/URGE NT SEVERITY EMERGENCY 03143 [facility] DEPT 5 5 SAMANTHA - YORBA VISIT EMERGENCY PAT HIGH PHYS SEVERITY& THREAT [facility] - 5 5 [facility] - 5 5 N OUTPATIEN COMMUNTIY T HOSPITA EMERGENCY 11121 [facility] 5 5 N DEPARTMEN COMMUNTIY T VISIT HOSPITA HIGH/URGE NT SEVERITY EMERGENCY 54040 [facility] DEPT 5 5 SAMANTHA JERILYN VISIT EMERGENCY HIGH PHYS SEVERITY& THREAT FUNJ EMERGENCY 78182 [facility] 5 5 [facility] DEPART[facility] INC T VISIT LIMITED/M [facility] - 5 5 [facility] OUTPATIEN INC T EMERGENCY 61086 LÁZARO TELLES 5 5 PHYSICIAN [facility]PARTMEN S, [facility] VISIT MODERATE SEVERITY EMERGENCY 40531 LÁZARO PATE DEPT 5 5 PHYSICIAN LYNDA VISIT S, PLLC HIGH SEVERITY& THREAT FUNCJ EMERGENCY 32927 [facility] 5 5 [facility] DEPART[facility] INC T VISIT LOW/MODER SEVERITY [facility]OSPITAL [facility] - 5 5 [facility] OUTPATI[facility] INC T EMERGENCY 13320 LÁZARO OLVERA 5 5 PHYSICIAN DEPARTMEN S, [facility] T VISIT HIGH/URGE NT SEVERITY EMERGENCY 45167 DIANNA 5 5 [facility] T VISIT MODERATE SEVERITY HOSPITAL DIANNA - 5 5 [facility] 5 5 [facility] T EMERGENCY 29352 LÁZARO PATE 5 5 PHYSICIAN [facility] T VISIT HIGH/URGE NT SEVERITY EMERGENCY 45893 [facility] 5 5 [facility] [facility] T VISIT LOW/MODER SEVERITY EMERGENCY [id number] UNIVERSIT 5 5 Y [facility] T VISIT HIGH/URGE NT SEVERITY HOSPITAL UNIVERSIT - 5 5 Y [facility] T EMERGENCY 61449 DANNY ANGELES 5 5 SAMANTHA PET [facility] EMERGENCY T VISIT PHYS HIGH/URGE NT SEVERITY EMERGENCY 59608 DIANNA 5 5 [facility] T VISIT HIGH/URGE NT SEVERITY EMERGENCY 05213 LÁZARO WALTON DEPT 5 5 PHYSICIAN U [place] VISIT [facility] HIGH SEVERITY& THREAT FUN HOSPITAL DIANNA - 5 5 [facility] T HOSPITAL TAMMIE - 5 5 N [facility]OSP[facility] EMERGENCY 22368 [facility] 5 5 N [facility] COMMUNTI[facility] T VISIT HOSPITA HIGH/URGE NT SEVERITY EMERGENCY 83935 DANNY MONTALVO JR DEPT 5 5 SAMANTHA COREY VISIT EMERGENCY HIGH PHYS SEVERITY& THREAT FUNCJ EMERGENCY 72933 LÁZARO PATE 5 5 PHYSICIAN [facility] T VISIT HIGH/URGE NT SEVERITY EMERGENCY 17627 DIANNA 5 5 [facility] T VISIT LOW/MODER SEVERITY HOSPITAL DIANNA - 5 5 [facility] T EMERGENCY 70124 DIANNA 5 5 [facility] DEPARTMEN INC T VISIT LOW/MODER SEVERITY EMERGENCY 30065 DIANNA PATE 5 5 [facility] T VISIT P MODERATE SEVERITY HOSPITAL DIANNA - 5 5 [facility] T EMERGENCY 80037 DIANNA [address] [facility] INC T VISIT HIGH/URGE NT SEVERITY HOSPITAL DIANNA - 5 5 [facility]PATI[facility] INC T EMERGENCY 49484 DIANNA ARBOLEDA 5 5 [facility] T VISIT P LOW/MODER SEVERITY EMERGENCY 54475 DIANNA 5 5 [facility]/MODER SEVERITY HOSPITAL DIANNA Meza 5 [facility] T EMERGENCY 54731 DIANNA DEAN, 5 5 [facility] T VISIT P MODERATE SEVERITY
--- OUTSIDE RECORDS SUMMARY | 2016-10-10 12:35 | External Medical Summary Rpt ---
Author Author , Organization [employer] Address Unknown Phone Unavailable Care Team Providers Care Photographic Lithographer Name Role Phone A Kaelyn HERRERA MD [...] LYNDA RICK ARTI, RICK Unavailable Unavailable [facility] Un[facility] Unavailable [facility], [facility] YLUI RHO, YULI Unavailable Unavailable [facility], Unavailable Unavailable [facility] JUDD LAURA, JUDD Unavailable Unavailable LAURA [facility], Unavailable Unavailable [facility], [facility] Unavailable Unavailable [facility]PITAL P, [facility] FELTON KOKI, FELTON KOKI Unavailable Unavailable [facility], Unavailable Unavailable [facility] Unavailable Unavailable IMAGING [facility], [facility] KILPELA JEA, KILPELA Unavailable [...] SOTINGEANU SOTINGEANU MARCIA, Unavailable Unavailable SOTINGEANU MARCIA REPLACED BY [facility] Unavailable Unavailable EMERGENCY PHYS, REPLACED BY [facility] REPLACED BY [facility] Unavailable Unavailable EMERGENCY SERV, REPLACED BY [facility] REPLACED BY [facility] Unavailable Unavailable PHYSICIAN SERVI, REPLACED BY [facility]IAN [facility] TOLU NEWMAN, TOLU Unavailable Unavailable [facility], Unavailable Unavailable [facility] WALKER FOR, WALKER Unavailable Unavailable FOR [...] PHYSICIANS, PAIN PLLC R1032 LEFT LOWER 08-10-2016 [facility] B86 SCABIES 07-04-2016 [facility] N12 TUBULO-INTE 06-08-2016 [facility] RST N EMERGENCY NEPHRITIS PHYS NOT SPEC ACUTE/CHRON R030 ELEVATED 06-03-2016 [facility] BLOOD-PRESS N EMERGENCY URE READING SERV WITHOUT DX HTN R0600 DYSPNEA 06-03-2016 [facility] [place] UNSPECIFIED RADIOLOGY R079 CHEST PAIN 06-03-2016 [facility] [place] UNSPECIFIED RADIOLOGY R1013 EPIGASTRIC 06-03-2016 [facility] PAIN N EMERGENCY SERV R112 NAUSEA WITH [...] UPPER 02-22-2016 [facility] [id number] ELEVATED 02-21-2016 A Kaelyn HERRERA WHITE BLOOD PSC CELL COUNT UNSPECIFIED R1010 UPPER 02-21-2016 A Kaelyn HERRERA ABDOMINAL PSC PAIN UNSPECIFIED R1110 VOMITING 02-21-2016 A Kaelyn HERRERA UNSPECIFIED PSC Q31034 OTHER 02-14-2016 A Kaelyn HERRERA INSTABILITY [facility] LEFT ANKLE [id number] PAIN IN 02-14-2016 A Kaelyn HERRERA LEFT KNEE [facility] M545 LOW BACK 02-09-2016 A Kaelyn HERRERA PAIN [facility] [id number] PAIN IN 02-09-2016 A Kaelyn HERRERA RIGHT LEG [facility] E69167 PAIN IN 02-09-2016 A Kaelyn HERRERA LEFT LEG [facility] [id number] EFFUSION 02-07-2016 [facility] [id number] PAIN IN 02-07-2016 [facility] M7989 OTHER 02-07-2016 [facility] SPECIFIED [facility]ICAL SOFT TISSUE IMAGING ASS DISORDERS R300 DYSURIA 02-07-2016 [facility] G8929 OTHER 01-26-2016 A Kaelyn HERRERA CHRONIC [facility] PAIN N3090 CYSTITIS 01-19-2016 [facility] UNSPECIFIED SERV WITHOUT FOUNDATION HEMATURIA N289 DISORDER OF 01-09-2016 [place] [facility] URETER FOUNDATION UNSPECIFIED R000 TACHYCARDIA 01-09-2016 [facility] UNSPECIFIED FOUNDATION [id number] PERSONAL 01-09-2016 [place] [facility] H[facility] OF SERV URINARY FOUNDATION CALCULI N209 URINARY 12-31-2015 [facility] CALCULUS PH[facility]IANS, UNSPECIFIED PLLC H00182 PAIN IN 11-10-2015 [facility] [id number] SPRAIN 11-10-2015 [facility] UNSPEC PHYSICIANS, LIGAMENT PLLC ROGHT ANKLE INITIAL ENC [id number] UNSPECIFIED 11-10-2015 [facility] INJURY [facility] RIGHT ANKLE IMAGING ASS INITIAL ENCOUNTER R319 HEMATURIA 10-07-2015 [facility] UNSPECIFIED PHYSICIANS, PLLC N8320 UNSPECIFIED 08-05-2015 [facility] O[facility]IAN N EMERGENCY CYSTS PHYS N8329 OTHER 08-05-2015 [facility] [place] [facility] RADIOLOGY CYSTS R1031 RIGHT LOWER 08-05-2015 [facility] N EMERGENCY PAIN PHYS R1030 LOWER 08-04-2015 [facility] ABDOMINAL PHYSICIANS, PAIN [facility] UNSPECIFIED M549 DORSALGIA 06-26-2015 [facility] UNSPECIFIED PHYSICIANS, [facility] R110 NAUSEA 06-26-2015 [facility], [facility] Z720 TOBACCO USE 06-26-2015 [facility] N23 UNSPECIFIED 06-16-2015 [facility] RENAL N EMERGENCY COLIC PHYS Z960 PRESENCE OF 06-16-2015 [facility] IMPLANTS HOSPITA N201 CALCULUS OF 05-20-2015 [facility] URETER PHYSICIANS, [facility] E669 OBESITY 05-17-2015 [facility] UNSPECIFIED N PHYSICIAN SERVI N132 HYDRONEPHRO 05-17-2015 [facility] SIS W/RENAL N PHYSICIAN & URETRL SERVI CALCULOUS OBST N1330 UNSPECIFIED 05-17-2015 [facility] HYDRONEPHRO SIS N3001 ACUTE 05-17-2015 [facility] CYSTITIS N PHYSICIAN WITH SERVI HEMATURIA R6510 SYS INFLM 05-17-2015 [facility] RSPN SYND N PHYSICIAN NON-INF SERVI ORIG NO AC ORGN DYSF Z6841 BODY MASS 05-16-2015 [facility] INDEX BMI COMMUNTIY 40.0-44.9 HOSPITA ADULT J208 ACUTE 04-28-2015 [facility] BRONCHITIS PHYSICIANS, DUE TO [facility] OTHER SPEC ORGANISMS K859 ACUTE 04-05-2015 [facility] PANCREATITI N EMERGENCY S PHYS UNSPECIFIED R9431 ABNORMAL 04-05-2015 [facility] ELECTROCARD [facility] IOGRAM HOSPITA 5920 CALCULUS OF 02-26-2015 [facility] [place] KIDNEY RADIOLOGY 5990 URINARY 02-26-2015 [facility] TRACT N EMERGENCY INFECTION PHYS SITE NOT SPECIFIED 55731 NAUSEA 02-26-2015 [facility] ALONE [facility] HOSPITA 98960 DIARRHEA 02-26-2015 [facility] 49450 ABDOMINAL 02-26-2015 [facility] PAIN RIGHT N EMERGENCY LOWER PHYS QU[facility]ANT V1301 PERSONAL 02-26-2015 [facility] HISTORY OF COMMUNTIY URINARY HOSPITA CALCULI V1582 PERS HX 02-26-2015 [facility] TOBACCO USE COMMUNTIY PRESENTING HOSPITA [facility] 4019 UNSPECIFIED 02-19-2015 [facility] HYPERTENSIO INC N 5275 SIALOLITHIA 02-19-2015 [facility] SIS PHYSICIANS, PLLC 6202 OTHER AND 02-14-2015 [facility] UNSPECIFIED PHYSICIANS, OVARIAN PLLC CYST 84356 ABDOMINAL 12-11-2014 [facility] PAIN OTHER MEDICAL SPECIFIED IMAGING ASS SITE 98068 ABDOMINAL 12-10-2014 [facility] PAIN, LEFT [facility] LOWER INC QU[facility]ANT 0419 BACTERIAL 11-26-2014 [place] [facility] INFECTION SERV UNSPECIFIED FOUNDATION CCE & UNS SITE 11094 UNSPECIFIED 11-26-2014 [facility] PYELONEPHRI TIS V4579 OTHER 11-26-2014 [facility] ABSENCE OF ORGAN 70342 ABDOMINAL 11-21-2014 [facility] [place] PAIN, RADIOLOGY UNSPECIFIED SITE 57586 ABDOMINAL 11-20-2014 [facility] PAIN, N EMERGENCY PERIUMBILIC PHYS 63778 ABDOMINAL 11-16-2014 [facility] PA[facility], MEDICAL EPIGASTRIC IMAGING ASS 37425 NAUSEA WITH 11-14-2014 [facility] VOMITING COMMUNTIY HOSPITA 5589 OTH&UNSPEC 10-31-2014 [facility] NONINFECTIO PHYSICIANS, [facility] ITIS&COLITI S 7242 LUMBAGO 10-19-2014 [facility] P 51402 ABDOMINAL 10-19-2014 [facility] PAIN, LEFT [facility] P QUADRANT 5921 CALCULUS OF 10-01-2014 [facility] 7295 PAIN IN 10-01-2014 [facility] SOFT MEDICAL TISSUES OF IMAGING ASS LIMB 8449 SPRAIN&STRA 10-01-2014 [facility] IN OF [facility] UNSPECIFIED INC SITE OF KNEE&LEG 9597 INJURY 10-01-2014 [facility] OTHER&UNSPE MEDICAL CIFIED KNEE IMAGING ASS LEG [...] HI 0 AN MG A IN C ME 59 04 04 10 5 00 EA [...] 48 DE ZA 11 17 17 23 ME 0 48 PH IN AR E MA 10 CY MG OF CY TA NT BL HI ET AN A IN C ME 65 04 04 60 30 00 EA [...] 12 01 14 7 00 EA Ac ME 71 -3 -[address] ti [...] 47 DE RA 30 16 17 07 GA 5 45 PH DE AR MA 10 [...] Procedure [place] [address] [facility] ABDOMEN & 7 MEDICAL PELVIS IMAGING W/O ASS CONTRAST MATERIAL ECG 16618 [facility] ROUTINE 6 SAMANTHA ECG EMERGENCY W/LEAST SERV 12 LDS I&R ONLY RADIOLOGI 20377 [facility] [place] FIDENCIO C 6 RADIOLOGY EXAMINATI ON CHEST SINGLE VIEW FRONTAL UNCLASSIF J3490 [facility] IED DRUGS 6 [facility] INC INC CULTURE 47555 [facility] BACTERIAL 6 [facility] INC INC QUANTTATI VE COLONY COUNT URINE URINE 15938 [facility] BUSTAMANTE 6 [facility] TEST INC INC VISUAL COLOR CMPRSN METHS URNLS DIP 37807 [facility]USTAM[facility]TE 6 [facility] STICK/TAB INC [place] [address] [facility] JOCY SCRUGGSNEY ABDOMEN & 6 RADIOLOGY III KISHA PELVIS W/O CONTRAST MATERIAL OBSERVATI 22895 A Kaelyn RICHTER SHAYY ON/INPATI 6 JAVIER ROMAN ENT [facility] H[place]PITAL [place] [address] [place] [address] [facility] ABDOMEN & 6 MEDICAL WOLFGANG PELVIS IMAGING W/O ASS CONTRST 1/> BODY RE THERAPEUT 35427 A C MERLINE IC 6 [facility] PROPHYLAC PSC TIC/DX INJECTION SUBQ/IM URINLS 55543 A C MERLINE DIP 6 [facility] STICK/TAB PSC LET REAGNT NON-AUTO MICRSCPY INJECTION J2550 A Kaelyn RICK 6 [facility] PROMETHAZ PSC INE HCL UP TO [address] [place] [address] [facility] LIPASE 6 [facility] [place] [address] [facility] AMYLASE 6 [facility] INC INC COMPREHEN 98506 [facility] B[facility] SIVE 6 [facility] METABOLIC INC INC PANEL COLLECTIO 44361 [facility] N VENOUS 6 [facility] BLOOD INC INC VENIPUNCT URE BLOOD 70196 [facility]UST[facility] COUNT 6 [facility] COMPLETE INC INC AUTO&AUTO DIFRNTL WBC URINLS 47532 A C MERLINE DIP 6 J[facility]IER CHI STICK/TAB [place] [address] [facility] RETROPERI 6 [facility] TONEAL INC INC REAL [place] W/[place] [address] ROBERTA CONNORS ALL RETROPERI 6 MEDICAL TONEAL IMAGING REAL TIME ASS W/IMAGE LIMITED MRI ANY 97839 [facility] JT LOWER 6 [facility] EXTREM INC INC W/O CONTRAST MATRL BLOOD 58593 A C RICK COUNT 6 [facility] COMPLETE PSC AUTO&AUTO DIFRNTL WBC INJECTION J0696 A C RICK 6 [facility]I CEFTRIAXO PSC NE SODIUM PER 250 MG URINLS 99245 A C RICK DIP 6 [facility] STICK/TAB PSC LET REAGNT NON-AUTO MICRSCPY THERAPEUT 83955 A C MERLINE IC 6 [facility] PROPHYLAC PSC TIC/DX INJECTION SUBQ/IM THERAPEUT 11686 A C MERLINE IC 6 J[facility] PROPHYLAC PSC TIC/DX INJECTION SUBQ/IM URINLS 92293 A C MERLINE DIP 6 [facility] STICK/TAB PSC LET REAGNT NON-AUTO MICRSCPY INJECTION J0696 A C MERLINE 6 [facility] CEFTRIAXO PSC NE SODIUM PER 250 MG BLOOD 18688 A C RICK COUNT 6 [facility] COMPLETE PSC AUTO&AUTO DIFRNTL WBC SUSCEPTIB 34317 [facility] LTY STDY 6 ROSY ROSY ANTIMICRB HOLDINGS HOLDINGS IAL MICRO/AGA R DILUTJ CUL BACT 43709 [facility] AEROBIC 6 ROSY ROSY ADDL HOLDINGS HOLDINGS METHS DEFINITIV E EA ISOL CULTURE 86032 [facility] BCT 6 ROSY ROSY ISOL&PRSM HOLDINGS HOLDINGS PTV ID ISOLATE EA URINE CULTURE 86305 [facility]NA BACTERIAL 6 ROSY ROSY HOLDINGS HOLDINGS QUANTTATI VE COLONY COUNT URINE INJECTION J0696 A C MERLINE 6 [facility]IER CHI CEFTRIAXO PSC NE SODIUM PER 250 MG URINLS 84978 A C RICK DIP 6 [facility]I STICK/TAB PSC LET REAGNT NON-AUTO MICRSCPY THERAPEUT 49961 A C MERLINE IC 6 [facility] PROPHYLAC PSC TIC/DX INJECTION SUBQ/IM INJECTION J2550 A C A C 6 JAVIER HERRERA MD PROMETHAZ PSC PSC INE HCL UP [place] [address] [place] [address] ROBERTA CONNORS ALL ABDOMEN & 6 MEDICAL PELVIS IMAGING W/O ASS CONTRAST MATERIAL URINLS 84324 A C KILPELA DIP 6 JAVIER ROMAN JELynn STICK/TAB PSC LET REAGNT NON-AUTO MICRSCPY RADEX 16704 [facility] ALL SPINE 6 MEDICAL LUMBOSACR IMAGING AL 2/3 ASS VIEWS RADEX 86317 [facility] SPINE 6 [facility]OS[facility] LUMBOSACR INC INC AL MINIMUM 4 VIEWS RADEX 01045 [facility] ANKLE 6 [facility] COMPLETE INC INC MINIMUM 3 VIEWS RADIOLOGI 38284 [facility] K[facility]LA C 6 MEDICAL WOLFGANG EXAMINATI IMAGING ON ANKLE ASS 2 VIEWS RADEX 81973 [place] MERHAR FOOT 6 MEDICAL GAR COMPLETE SERV MINIMUM 3 FOUNDATIO VIEWS N RADEX 19537 [place] MERHAR ANKLE 6 MEDICAL GAR COMPLETE SERV MINIMUM [address] [place] [address] [facility] [place] JAM ABDOMEN & 6 RADIOLOGY PELVIS W/O CONTRAST MATERIAL URINLS 78011 A C MERLINE DIP 6 [facility] CHI STICK/TAB [place] [address] [place] PA[place] RETROPERI 6 MEDICAL BAR TONEAL SERV REAL TIME FOUNDATIO W/[place] [address] [facility] [place] SCALF RITO ABDOMEN & 6 RADIOLOGY PELVIS W/[place] [address] [facility] SHEILAINEMORAIMA ABDOMEN & 6 MEDICAL MARCIA PELVIS IMAGING W/O ASS CONTRAST MATERIAL COMPREHEN 41514 [facility] SIVE 6 [facility] METABOLIC INC INC PANEL URNLS DIP 01428 [facility] BUSTAMANTE 6 [facility] STICK/TAB INC INC LET REAGENT AUTO MICROSCOP Y THER 48879 [facility] PROPH/DX 6 [facility] NJX IV INC INC PUSH SINGLE/1S T SBST/DRUG CULTURE 74680 [facility] BACTERIAL 6 [facility] INC INC QUANTTATI VE COLONY COUNT URINE UNCLASSIF J3490 [facility] IED DRUGS 6 [facility] INC INC BLOOD 00918 [facility] COUNT 6 [facility] COMPLETE INC INC AUTO&AUTO DIFRNTL WBC COLLECTIO 25744 [facility] N VENOUS 6 [facility] BLOOD INC INC VENIPUNCT URE THERAPEUT 12618 [facility] B[facility] IC 6 [facility] INJECTION [place] [address] [facility] ABDOMEN & 6 MEDICAL WOLFGANG PELVIS IMAGING W/O ASS CONTRAST MATERIAL RADIOLOGI 32931 [facility] CONNORS ALL C 6 MEDICAL EXAMINATI IMAGING [place] [address] [place] [address] [facility] BEINEKE ABDOMEN & 6 MEDICAL MARCIA PELVIS IM[place] [address] [facility] [place] YULI ABDOMEN & 6 RADIOLOGY RHO PELVIS W/[place] [address] [facility] [place] FU ABDOMEN & 6 RADIOLOGY CAR PELVIS W/O CONTRAST MATERIAL BASIC 91403 [facility]UST[facility] METABOLIC 6 [facility] PANEL INC INC CALCIUM TOTAL THERAPEUT 30805 [facility] BUSTAMANTE IC 6 [facility] PROPHYLAC INC INC TIC/DX INJECTION SUBQ/IM UNCLASSIF J3490 DIANNAEDITH PALACIOSON IED DRUGS 6 [facility] INC INC BLOOD 29320 [facility]USTAMANTE COUNT 6 [facility] COMPLETE INC INC AUTO&AUTO DIFRNTL WBC COLLECTIO 72853 [facility] PALACIOSON N VENOUS 6 [facility] BLOOD INC INC VENIPUNCT URE COLLECTIO 47136 [facility] N VENOUS 6 N N BLOOD COMMUNTIY COMMUNTIY VENIPUNCT HOSPITA HOSPITA URE URNLS DIP 37798 [facility] 6 N N STICK/TAB COMMUNTIY COMMUNTIY LET HOSPITA HOSPITA REAGENT AUTO MICROSCOP Y THERAPEUT 92478 [facility] IC 6 N N INJECTION COMMUNTIY COMMUNTIY IV [place] [address] [facility] INFUSION 6 N N THERAPY/P COMMUNTIY COMMUNTIY ROPHYLAXI HOSPITA HOSPITA S /DX 1ST TO 1 HR BLOOD 39620 [facility] COUNT 6 N N COMPLETE COMMUNTIY COMMUNTIY AUTO&AUTO HOSPITA HOSPITA DIFRNTL WBC CUL BACT 44950 [facility] AEROBIC 6 N N ADDL COMMUNTIY COMMUNTIY METHS HOSPITA HOSPITA DEFINITIV E EA ISOL SUSCEPTIB 12020 [facility] LTY STDY 6 N N ANTIMICRB COMMUNTIY COMMUNTIY IAL HOSPITA HOSPITA MICRO/AGA R DILUTJ CULTURE 07032 [facility] BACTERIAL 6 N N COMMUNTIY COMMUNTIY QUANTTATI HOSPITA HOSPITA VE COLONY COUNT URINE URINE 78639 [facility] 6 N N TEST COMMUNTIY COMMUNTIY VISUAL HOSPITA HOSPITA COLOR CMPRSN METHS COMPREHEN 04936 [facility] SIVE 6 N N METABOLIC COMMUNTIY [place] [address] [facility] INFUSION 6 N N HYDRATION COMMUNTIY COMMUNTIY EACH [place] [address] [facility] INFUSION 6 N N THER COMMUNTIY COMMUNTIY PROPH HOSPITA HOSPITA ADDL [place] [address] [place] [address] [facility] [place] ABDOMEN & 6 RADIOLOGY RAY PELVIS W/[place] [address] [facility] LIPASE 5 N N COMMUNTI[place] [address] [facility] INFUSION 5 N N HYDRATION COMMUNTIY COMMUNTIY EACH HOSPITA HOSPITA ADDITIONA L HOUR INJECTION J2550 [facility] 5 N N PROMETHAZ COMMUNTIY COMMUNTIY INE HCL HOSPITA HOSPITA UP TO 50 MG COMPREHEN 48402 [facility] SIVE 5 N N METABOLIC COMMUNTIY COMMUNTIY PANEL HOSPITA HOSPITA THER 30524 [facility] PROPH/DX 5 N N NJX EA COMMUNTIY COMMUNTIY SEQL IV HOSPITA HOSPITA PUSH SBST/DRUG FAC URNLS DIP 19229 [facility] 5 N N STICK/TAB COMMUNTIY COMMUNTIY LET 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 REAGENT AUTO MICROSCOP Y CULTURE 01602 [facility] BACTERIAL 5 N N COMMUNTIY COMMUNTIY QUANTTATI HOSPITA HOSPITA VE COLONY COUNT URINE BLOOD 01347 [facility] COUNT 5 N N COMPLETE COMMUNTIY COMMUNTIY AUTO&AUTO HOSPITA HOSPITA DIFRNTL WBC INJECTION J2270 [facility] MORPHINE 5 N N SULFATE COMMUNTIY COMMUNTIY UP TO [place] [address] [facility] INFUSION 5 N N THERAPY/P COMMUNTIY COMMUNTIY ROPHYLAXI HOSPITA HOSPITA S /DX 1ST TO 1 HR THERAPEUT 94301 [facility] IC 5 N N INJECTION COMMUNTIY COMMUNTIY IV PUSH HOSPITA HOSPITA EACH NEW DRUG COLLECTIO 73082 [facility] N VENOUS 5 N N BLOOD COMMUNTIY COMMUNTIY VENIPUNCT HOSPITA HOSPITA URE RADEX 75062 DIANNA BUSTAMANTE ABDOMEN 1 5 [facility] INC INC ANTEROPOS TERIOR VIEW PROTHROMB 31869 [facility] IN TIME 5 N N COMMUNTIY COMMUNTIY HOSPITA HOSPITA INJECTION J1100 [facility] 5 N N DEXAMETHO COMMUNTIY COMMUNTIY SONE HOSPITA HOSPITA SODIUM PHOSPHATE 1 MG INJECTION J1170 [facility] 5 N N HYDROMORP COMMUNTIY COMMUNTIY RON UP HOSPITA HOSPITA TO 4 MG INJECTION J2001 [facility] 5 N N LIDOCAINE COMMUNTIY COMMUNTIY HCL HOSPITA HOSPITA INTRAVENO US INFUS 10 MG COLLECTIO 21537 [facility] N VENOUS 5 N N BLOOD COMMUNTIY COMMUNTIY VENIPUNCT HOSPITA HOSPITA URE BLOOD 66342 [facility] COUNT 5 N N HEMATOCRI COMMUNTIY COMMUNTIY T HOSPITA HOSPITA BLOOD 28211 [facility] COUNT 5 N N HEMOGLOBI COMMUNTIY COMMUNTIY N HOSPITA HOSPITA OBSERVATI 41609 [facility] ON CARE 5 SAMANTHA A GOP DISCHARGE PHYSICIAN SERVI MANAGEMEN T INJECTION J2704 [facility] PROPOFOL 5 N N 10 MG COMMUNTIY COMMUNTIY HOSPITA HOSPITA THER 77913 [facility] PROPH/DX 5 N N NJX EA COMMUNTIY COMMUNTIY SEQL IV HOSPITA HOSPITA PUSH SBST/DRUG FAC BASIC 26002 [facility] METABOLIC 5 N N PANEL COMMUNTIY COMMUNTIY CALCIUM HOSPITA HOSPITA TOTAL INJ J2543 [facility] PIPERACIL 5 N N MEGHAN COMMUNTIY COMMUNTIY SOD/TAZOB HOSPITA HOSPITA ACTAM SOD 1 G/0.125 G INJECTION J2550 [facility] 5 N N PROMETHAZ COMMUNTIY COMMUNTIY INE HCL HOSPITA HOSPITA UP TO 50 MG INJECTION J2550 [facility] 5 N N PROMETHAZ COMMUNTIY COMMUNTIY INE HCL HOSPITA HOSPITA UP TO 50 MG INJ J2543 [facility] PIPERACIL 5 N N MEGHAN COMMUNTIY COMMUNTIY SOD/TAZOB HOSPITA HOSPITA ACTAM SOD 1 G/0.125 G SBSQ 18025 [facility] OBSERVATI 5 SAMANTHA A GOP ON PHYSICIAN CARE/DAY SERVI 35 MINUTES CYSTO 06252 [facility] W/URETERO 5 N N SCOPY COMMUNTIY COMMUNTIY W/RMVL/[place] [address] [facility] [place] [facility] ABDOMEN & 5 RADIOLOGY PELVIS W/O CONTRAST MATERIAL COMPREHEN 00520 [facility] SIVE 5 N N METABOLIC COMMUNTIY COMMUNTIY PANEL HOSPITA HOSPITA DILATION 68349 [facility] V[facility]QUEZ NEPHROSTO 5 ALPESH ALPESH MY/URETER /URETHRA RS&I THER 68938 [facility] PROPH/DX 5 N N NJX EA COMMUNTIY COMMUNTIY SEQL IV HOSPITA HOSPITA PUSH SBST/DRUG FAC URINE 21273 [facility] 5 N N TEST COMMUNTIY COMMUNTIY VISUAL HOSPITA HOSPITA COLOR CMPRSN METHS STENT C2617 [facility] NON-COR 5 N N TEMPORARY COMMUNTIY COMMUNTIY WITHOUT HOSPITA HOSPITA DELIVERY SYSTEM ANES 16252 [facility] LEV[facility] TRURL 5 ANESTHESI JERILYN FRAGMNTJ A GROUP MANJ&/RMV PS L URETERAL CALCULUS CYSTO 90931 [facility] W/INSERT 5 N N URETERAL COMMUNTIY COMMUNTIY STENT HOSPITA HOSPITA TOBACCO 03871 [facility] USE 5 N N CESSATION COMMUNTIY COMMUNTIY HOSPITA HOSPITA INTERMEDI ATE 3-10 MINUTES INJECTION J0696 [facility] 5 N N CEFTRIAXO COMMUNTIY COMMUNTIY NE SODIUM HOSPITA HOSPITA PER 250 MG BLOOD 89870 [facility] COUNT 5 N N COMPLETE COMMUNTIY COMMUNTIY AUTO&AUTO HOSPITA HOSPITA DIFRNTL WBC INFUSION J7030 [facility] NORMAL 5 N N SALINE COMMUNTIY COMMUNTIY SOLUTION HOSPITA HOSPITA 1000 CC URNLS DIP 62467 [facility] 5 N N STICK/TAB COMMUNTIY COMMUNTIY LET HOSPITA HOSPITA REAGENT AUTO MICROSCOP Y COLLECTIO 77456 [facility] N VENOUS 5 N N BLOOD COMMUNTIY COMMUNTIY [place] [address] [facility] INFUSION 5 N N THERAPY/P COMMUNTIY COMMUNTIY ROPHYLAXI HOSPITA HOSPITA S /DX 1ST TO 1 HR CALCULUS 64753 [facility] QUANTITAT 5 N N DEVYN COMMUNTIY COMMUNTIY CHEMICAL HOSPITA HOSPITA RINGERS J7120 [facility] LACTATE 5 N N INFUSION COMMUNTIY COMMUNTIY UP TO HOSPITA HOSPITA 1000 CC CULTURE 22161 [facility] BACTERIAL 5 N N COMMUNTIY COMMUNTIY QUANTTATI HOSPITA HOSPITA VE COLONY COUNT URINE INJECTION J1170 [facility] 5 N N HYDROMORP COMMUNTIY COMMUNTIY RON UP HOSPITA HOSPITA TO 4 MG GUIDE C1769 [facility] WIRE 5 N N COMMUNTIY COMMUNTIY HOSPITA HOSPITA INTRODUCT 61376 [facility] ION 5 SAMANTHA JERILYN NEEDLE/IN EMERGENCY TRACATHET PHYS ER VEIN CULTURE 36017 [facility] BACTERIAL 5 N N BLOOD COMMUNTIY COMMUNTIY AEROBIC HOSPITA HOSPITA W/ID ISOLATES INJECTION J1170 [facility] 5 N N HYDROMORP COMMUNTIY COMMUNTIY RON UP HOSPITA HOSPITA TO 4 MG CULTURE 65331 [facility] BACTERIAL 5 N N COMMUNTIY COMMUNTIY QUANTTATI HOSPITA HOSPITA VE COLONY COUNT URINE THROMBOPL 08182 [facility] ASTIN 5 N N TIME COMMUNTIY COMMUNTIY PARTIAL HOSPITA HOSPITA PLASMA/WH OLE BLOOD THERAPEUT 98670 [facility] IC 5 N N INJECTION COMMUNTIY COMMUNTIY IV PUSH HOSPITA HOSPITA EACH NEW DRUG COLLECTIO 58859 [facility] N VENOUS 5 N N BLOOD COMMUNTIY COMMUNTIY VENIPUNCT HOSPITA HOSPITA [facility] [id number] [facility] OBSERVATI 5 N N ON COMMUNTIY COMMUNTIY SERVICE HOSPITA HOSPITA PER HOUR URNLS DIP 98775 [facility] 5 N N STICK/TAB COMMUNTIY COMMUNTIY LET HOSPITA HOSPITA REAGENT AUTO MICROSCOP Y INFUSION J7030 [facility] NORMAL 5 N N SALINE COMMUNTIY COMMUNTIY SOLUTION HOSPITA HOSPITA 1000 CC BLOOD 17226 [facility] COUNT 5 N N COMPLETE COMMUNTIY COMMUNTIY AUTO&AUTO HOSPITA HOSPITA DIFRNTL WBC INJECTION J2270 [facility] MORPHINE 5 N N SULFATE COMMUNTIY COMMUNTIY UP TO 10 HOSPITA HOSPITA MG THER 91124 [facility] PROPH/DX 5 N N NJX EA COMMUNTIY COMMUNTIY SEQL IV HOSPITA HOSPITA PUSH SBST/DRUG FAC THERAPEUT 95314 [facility] IC 5 N N PROPHYLAC COMMUNTIY COMMUNTIY TIC/DX HOSPITA HOSPITA INJECTION SUBQ/IM COMPREHEN 37838 [facility] SIVE 5 N N METABOLIC COMMUNTIY [place] [address] [place] [facility] A[facility]OMEN & 5 [facility] [place] PELVIS IMAGING W/O ASS CONTRAST MATERIAL INJ J2543 [facility] PIPERACIL 5 N N MEGHAN COMMUNTIY COMMUNTIY SOD/TAZOB HOSPITA HOSPITA ACTAM SOD 1 G/0.125 G INITIAL 25011 [facility] OBSERVATI 5 SAMANTHA A GOP ON PHYSICIAN CARE/DAY SERVI 70 MINUTES INJECTION J2550 [facility] 5 N N PROMETHAZ COMMUNTIY COMMUNTIY INE HCL HOSPITA HOSPITA UP TO 50 MG URINE 55721 [facility] TEST INC INC VISUAL COLOR CMPRSN METHS URNLS DIP 69615 [facility] STICK/TAB INC INC LET REAGENT AUTO MICROSCOP Y CULTURE 69108 [facility] BACTERIAL 5 [facility] INC INC QUANTTATI VE COLONY COUNT URINE UNCLASSIF J3490 [facility] IED DRUGS 5 [facility] INC INC URNLS DIP 17351 [facility] 5 N N STICK/TAB COMMUNTIY COMMUNTIY LET HOSPITA HOSPITA REAGENT AUTO MICROSCOP Y URINE 32590 [facility] 5 N N TEST COMMUNTIY COMMUNTIY VISUAL HOSPITA HOSPITA COLOR CMPRSN METHS INJECTION J2550 [facility] 5 N N PROMETHAZ COMMUNTIY COMMUNTIY INE HCL HOSPITA HOSPITA UP [place] 50 [place] [address] [facility] INFUSION 5 N N HYDRATION COMMUNTIY COMMUNTIY EACH HOSP[place] [address] [facility] LIPASE 5 N N COMMUNTIY COMMUNTIY HOSPITA HOSPITA COMPREHEN 46594 [facility] SIVE 5 N N METABOLIC COMMUNTIY COMMUNTIY PANEL HOSPITA HOSPITA CULTURE 66311 [facility] BACTERIAL 5 N N COMMUNTIY COMMUNTIY QUANTTATI HOSPITA HOSPITA VE COLONY COUNT URINE BLOOD 13829 [facility] COUNT 5 N N COMPLETE COMMUNTIY COMMUNTIY AUTOMATED HOSPITA HOSPITA ECG 32161 [facility] ROUTINE 5 N N ECG COMMUNTIY COMMUNTIY W/LEAST HOSPITA HOSPITA 12 LDS TRCG ONLY W/O I&R ECG 63583 [facility] CELLAROSI ROUTINE 5 SAMANTHA - YORBA ECG EMERGENCY PAT W/LEAST PHYS 12 LDS I&R ONLY INJECTION J2270 [facility] MORPHINE 5 N N SULFATE COMMUNTIY COMMUNTIY UP TO 10 HOSPITA HOSPITA MG BLOOD 89242 [facility] COUNT 5 N N SMEAR COMMUNTIY COMMUNTIY MCRSCP HOSPITA HOSPITA W/MNL DIFRNTL WBC COUNT INFUSION J7030 [facility] NORMAL 5 N N SALINE COMMUNTIY COMMUNTIY SOLUTION HOSPITA HOSPITA 1000 CC COLLECTIO 66796 [facility] N VENOUS 5 N N BLOOD COMMUNTIY COMMUNTIY VENIPUNCT HOSPITA HOSPITA URE THERAPEUT 02781 [facility] IC 5 N N INJECTION COMMUNTIY COMMUNTIY IV [place] [address] [facility] 5 N N THERAPY/P COMMUNTIY COMMUNTIY ROPHYLAXI HOSPITA HOSPITA S /DX 1ST TO 1 HR COLLECTIO 38156 [facility] N VENOUS 5 N N BLOOD COMMUNTIY COMMUNTIY VENIPUNCT HOSPITA HOSPITA URE INFUSION J7030 [facility] NORMAL 5 N N SALINE COMMUNTIY COMMUNTIY SOLUTION HOSPITA HOSPITA 1000 CC BLOOD 34408 [facility] COUNT 5 N N COMPLETE COMMUNTIY COMMUNTIY AUTO&AUTO HOSPITA HOSPITA DIFRNTL WBC INJECTION J2270 [facility] MORPHINE 5 N N SULFATE COMMUNTIY COMMUNTIY UP TO 10 HOSPITA HOSPITA MG CULTURE 05746 [facility] BACTERIAL 5 N N COMMUNTIY COMMUNTIY QUANTTATI HOSPITA HOSPITA VE COLONY COUNT URINE COMPREHEN 63523 [facility] SIVE 5 N N METABOLIC COMMUNTIY COMMUNTIY [place] [address] [facility] LIPASE 5 N N [place] [address] [place] JUDD ABDOMEN & 5 RADIOLOGY LAURA PELVIS [place] [address] [facility] INFUSION 5 N N HYDRATION COMMUNTIY COMMUNTIY EACH HOSPITA HOSPITA ADDITIONA L HOUR URINE 70496 [facility] 5 N N TEST COMMUNTIY COMMUNTIY VISUAL HOSPITA HOSPITA COLOR CMPRSN METHS THER 93729 [facility] PROPH/DX 5 N N NJX IV COMMUNTIY COMMUNTIY PUSH HOSPITA HOSPITA SINGLE/1S T SBST/DRUG URNLS DIP 40660 [facility] 5 N N STICK/TAB COMMUNTIY COMMUNTIY LET HOSPITA HOSPITA REAGENT AUTO MICROSCOP Y UNCLASSIF J3490 DIANNA BUSTAMAN[facility] IED DRUGS 5 [place] [address] [place] KAYLA ABDOMEN & 5 [facility] PELVIS IMAGING W/[place] [address] [facility] LIPASE 5 [facility] INC COMPREHEN 47764 DI[facility] SIVE 5 [facility] [place] [address] [facility] AMYLASE 5 [facility] INC INC BLOOD 81183 DIANNA DIANNA COUNT 5 [facility] COMPLETE INC INC AUTO&AUTO DIFRNTL WBC CULTURE 00144 DIANNA BUSTAMANTE BACTERIAL 5 [facility] INC INC QUANTTATI VE COLONY COUNT URINE URNLS DIP 03053 DIANNA BUSTAMANTE 5 [facility] STICK/TAB INC INC LET REAGENT AUTO MICROSCOP Y URINE 89664 DIANNA BUSTAMANTE 5 [facility] TEST INC INC VISUAL COLOR CMPRSN METHS UNCLASSIF J3490 DIANNA BUSTAMANTE IED DRUGS 5 [facility] INC INC COMPREHEN 83426 DIANNA BUSTAMANTE SIVE 5 [facility] [place] [address] DIANNA BUSTAMANTE LIPASE 5 [facility] INC INC BLOOD 37311 DIANNA BUSTAMANTE COUNT 5 [facility] COMPLETE INC INC AUTO&AUTO DIFRNTL WBC URNLS DIP 04335 DIANNA BUSTAMANTE 5 [facility] STICK/TAB INC INC LET REAGENT AUTO MICROSCOP Y COLLECTIO 87176 DIANNA BUSTAMANTE N VENOUS 5 [facility] BLOOD INC INC VENIPUNCT URE URINE 49323 DIANNA BUSTAMANTE 5 [facility] TEST [place] [address] DIANNA BUSTAMANTE ABDOMEN & 5 [facility] PELVIS INC INC W/O CONTRAST MATERIAL URINE 65355 DIANNA BUSTAMANTE 5 [facility] TEST INC INC VISUAL COLOR CMPRSN METHS URNLS DIP 48031 DIANNA BUSTAMANTE 5 [facility] STICK/TAB INC INC LET REAGENT AUTO MICROSCOP Y INJECTION J1200 [facility] 5 [facility] HCL UP TO 50 MG INJECTION J2270 [facility] MORPHINE 5 Y Y [facility] UP TO 10 MG INJECTION J1956 [facility] 5 Y Y LEVOFLOXA [facility] LETY 250 MG BLOOD 58656 [facility] COUNT 5 Y Y [facility]OSPITAL HOSPITAL AUTOMATED INJECTION J2270 [facility] MORPHINE 5 Y Y SULFATE [facility] UP TO 10 MG INFUSION J7030 [facility] NORMAL 5 Y Y SALINE [facility] SOLUTION 1000 CC THERAPEUT 70038 [facility] IC 5 Y Y INJECTION [facility] [place] [address] [facility] INFUSION 5 Y Y THERAPY/P [facility] ROPHYLAXI S /DX 1ST TO 1 HR URNLS DIP 70014 [facility] 5 Y Y STICK/TAB [facility] LET REAGENT AUTO MICROSCOP Y INJECTION J2765 [facility] 5 Y Y METOCLOPR [facility] AMIDE HCL UP TO 10 MG URINE 05981 [facility] 5 Y Y TEST [facility] VISUAL COLOR CMPRSN METHS THER 11857 [facility] PROPH/DX 5 Y Y NJX EA [facility] SEQL IV PUSH SBST/DRUG FAC COMPREHEN 96634 [facility] SIVE 5 Y Y METABOLIC [facility] [place] [address] [facility] LIPASE 5 Y Y [facility] [address] [place] KOSTEL[place] ABDOMEN & 5 RADIOLOGY ROBERT PELVIS W/[place] [address] DIANNA BUSTAMANTE ABDOMEN & 5 [facility] PELVIS INC [place] W/[place] [address] [facility] AMYLASE 5 [facility] INC COMPREHEN 78876 [facility] B[facility] SIVE 5 [facility] [address] DIAN[facility] B[facility] LIPASE 5 [facility] INC INC URNLS DIP 46533 DIANNA BUSTAMANTE 5 [facility] STICK/TAB INC INC LET REAGENT AUTO MICROSCOP Y UNCLASSIF J3490 DIAN[facility] BUSTAMANTE IED DRUGS 5 [place] [address] [facility] B[facility] INFUSION 5 [facility] THERAPY/P INC INC ROPHYLAXI S /DX 1ST TO 1 HR THERAPEUT 96913 [facility] IC 5 [facility] INJECTION INC INC IV PUSH EACH NEW DRUG BLOOD 54924 [facility] COUNT 5 [facility] COMPLETE INC INC AUTO&AUTO DIFRNTL WBC PROTHROMB 78752 [facility] BUSTAMANTE IN TIME 5 [facility] INC INC THROMBOPL 85971 [facility] ASTIN 5 [facility] TIME INC INC PARTIAL PLASMA/WH OLE BLOOD CULTURE 27301 [facility] BACTERIAL 5 [facility] INC INC QUANTTATI VE COLONY COUNT URINE CULTURE 36909 [facility] BACTERIAL 5 N N COMMUNTIY COMMUNTIY QUANTTATI HOSPITA HOSPITA VE COLONY COUNT URINE BLOOD 15526 [facility] COUNT 5 N N COMPLETE COMMUNTIY COMMUNTIY AUTO&AUTO HOSPITA HOSPITA DIFRNTL WBC INJECTION J2270 [facility] MORPHINE 5 N N SULFATE COMMUNTIY COMMUNTIY UP TO 10 HOSPITA HOSPITA MG THERAPEUT 17874 [facility] IC 5 N N INJECTION COMMUNTIY COMMUNTIY [place] [address] [facility] ABDOMEN & 5 N N PELVIS COMMUNTIY COMMUNTIY W/CONTRAS HOSPITA HOSPITA T MATERIAL URNLS DIP 51152 [facility] 5 N N STICK/TAB COMMUNTIY COMMUNTIY LET HOSPITA HOSPITA REAGENT AUTO MICROSCOP Y INJECTION J2550 [facility] 5 N N PROMETHAZ COMMUNTIY COMMUNTIY INE HCL HOSPITA HOSPITA UP TO 50 MG URINE 16480 [facility] 5 N N TEST COMMUNTIY COMMUNTIY VISUAL HOSPITA [place] [address] [facility] LIPASE 5 N N COMMUNTIY COMMUNTIY HOSPITA HOSPITA LOCM Q9967 [facility] [phone] 5 N N MG/ML COMMUNTIY COMMUNTIY IODINE HOSPITA HOSPITA CONCENTRA TION PER ML COMPREHEN 55900 [facility] SIVE 5 N N METABOLIC COMMUNTIY COMMUNTIY [place] [address] [facility] AMYLASE 5 N N COMMUNTIY COMMUNTIY HOSPITA HOSPITA COMPREHEN 44858 DI[facility] SIVE 5 [facility] [address] DIANNA BUSTAMANTE AMYLASE 5 [place] [address] DIANNA BUSTAMANTE LIPASE 5 [facility] INC INC URINE 83882 DIANNA BUSTAMANTE 5 [facility] TEST INC INC VISUAL COLOR CMPRSN METHS URNLS DIP 16522 DIANNA BUSTAMANTE 5 [facility] STICK/TAB INC INC LET REAGENT AUTO MICROSCOP Y UNCLASSIF J3490 DIANNA BUSTAMANTE IED DRUGS 5 [facility] INC INC BLOOD 40476 DIANNA BUSTAMANTE COUNT 5 [facility] COMPLETE INC INC AUTO&AUTO DIFRNTL WBC CULTURE 57669 [facility] BACTERIAL 5 [facility] INC INC QUANTTATI VE COLONY COUNT URINE URNLS DIP 70082 DIANNA BUSTAMANTE 5 [facility] STICK/TAB INC INC LET REAGENT AUTO MICROSCOP Y UNCLASSIF J3490 DIANNA BUSTAMANTE IED DRUGS 5 [facility] INC INC URINE 20391 DIANNA BUSTAMANTE 5 [facility] TEST [place] [address] DIANNA BUSTAMANTE ABDOMEN & 5 [facility] PELVIS INC INC W/O CONTRAST MATERIAL THER 59741 DIANNA BUSTAMANTE PROPH/DX 5 [facility] NJX IV INC INC PUSH SINGLE/1S T SBST/DRUG UNCLASSIF J3490 DI[facility]UST[facility]TE IED DRUGS 5 [facility] INC INC THERAPEUT 19674 DIANNA BUSTAMANTE IC 5 [facility] INJECTION INC INC IV PUSH EACH NEW DRUG RADIOLOGI 70030 DIANNA BUSTAMANTE C 5 [facility] EXAMINATI INC INC ON TIBIA & [place] [address] [place] [address] [place]ERT[place] KAYLA ABDOMEN & 5 [facility] PELVIS IMAGING W/O ASS CONTRAST MATERIAL Encounters Encounter Start End Date Code Location Performer Type Date EMERGENCY 04164 L[facility]ZARO PATE 7 7 PHYSICIAN DEPARTMEN [facility] T VISIT HIGH/URGE NT SEVERITY EMERGENCY 90311 [facility] 7 7 SAMANTHA [facility] EMERGENCY T VISIT PHYS HIGH/URGE NT SEVERITY EMERGENCY 69293 LÁZARO [facility] DEPT 7 7 PHYSICIAN U VISIT [facility] HIGH SEVERITY& THREAT FUNCJ EMERGENCY 48347 L[facility]ZARO PATE 7 7 PHYSICIAN [facility] T VISIT HIGH/URGE NT SEVERITY EMERGENCY 40657 [facility] 6 6 SAMANTHA [facility] EMERGENCY T VISIT PHYS HIGH/URGE NT SEVERITY EMERGENCY 88012 [facility] DEPT 6 6 SAMANTHA VISIT EMERGENCY HIGH SERV SEVERITY& THREAT FUNCJ EMERGENCY 76098 LÁZARO WALTON 6 6 PHYSICIAN U [facility] T VISIT HIGH/URGE NT SEVERITY HOSPITAL DIANNA - 6 6 [facility] OUTPATIEN INC T EMERGENCY 49117 DIANNA 6 6 [facility] DEPARTMEN INC T VISIT LIMITED/M INOR PROB EMERGENCY 49870 [facility] DIANNA DEPT 6 6 SAMANTHA SCO VISIT EMERGENCY HIGH PHYS SEVERITY& THREAT FUNCJ OFFICE 18377 A Kaelyn LUCAS OUTPATIEN 6 6 JAVIER ROMAN T VISIT PSC 15 MINUTES EMERGENCY 84833 L[facility]ZARO [facility] DEPT 6 6 PHYSICIAN U MARCIA VISIT [facility] HIGH SEVERITY& THREAT FUNCJ OFFICE 99984 A Kaelyn RICK OUTPATIEN 6 6 JAVIER [facility] T VISIT PSC 15 MINUTES OFFICE 49528 A Kaelyn RICK OUTPATIEN 6 6 [facility] T VISIT PSC 15 MINUTES HOSPITAL DIANNA - 6 6 [facility] OUTPATIEN INC T OFFICE 34253 A C RICK OUTPATIEN 6 6 JAVIER [facility] T VISIT PSC 15 MINUTES OFFICE 67680 A C KILPELA OUTPATIEN 6 6 JAVIER LOGAN T VISIT PSC 15 MINUTES OFFICE 60003 A C RICK OUTPATIEN 6 6 JAVIER [facility] T VISIT PSC 15 MINUTES HOSPITAL DIANNA - 6 6 [facility] OUTPATIEN INC T OFFICE 44896 A C RICK OUTPATIEN 6 6 JAVIER [facility]I T VISIT PSC 15 MINUTES OFFICE 78231 A C RICK OUTPATIEN 6 6 JAVIER [facility]I T VISIT PSC 15 MINUTES OFFICE 13845 A C RICK OUTPATIEN 6 6 JAVIER [facility]I T VISIT PSC 15 MINUTES EMERGENCY 46270 LÁZARO PATE 6 6 PHYSICIAN LYNDA DEPARTMEN S, PLLC T VISIT HIGH/URGE NT SEVERITY HOSPITAL DIANNA - 6 6 [facility] OUTPATIEN INC T OFFICE 60516 A C KILPELA OUTPATIEN 6 6 JAVIER LOGAN T VISIT PSC 25 MINUTES HOSPITAL DIANNA - 6 6 [facility] OUTPATIEN INC T OFFICE 72840 A C RICK OUTPATIEN 6 6 JAVIER CHI T VISIT PSC 15 MINUTES EMERGENCY 14010 JOCY HENNESSYI 6 6 MEDICAL DEPARTMEN SERV T VISIT FOUNDATIO MODERATE N SEVERITY EMERGENCY 95052 [facility] FAUSTINO YUMIKO 6 6 SAMANTHA DEPARTMEN EMERGENCY T VISIT PHYS HIGH/URGE NT SEVERITY OFFICE 82585 A C RICK OUTPATIEN 6 6 JAVIER Lewis NEW 30 PSC MINUTES EMERGENCY 20941 JOCY TAM 6 6 MEDICAL MAT DEPARTMEN SERV T VISIT FOUNDATIO HIGH/URGE N NT SEVERITY EMERGENCY 63895 [facility] NARESH BAB 6 6 SAMANTHA DEPARTMEN EMERGENCY T VISIT PHYS HIGH/URGE NT SEVERITY HOSPITAL DIANNA - 6 6 [facility] OUTPATIEN INC T EMERGENCY 58200 DIANNA 6 6 [facility] DEPARTMEN INC T VISIT HIGH/URGE NT SEVERITY EMERGENCY 79790 LÁZARO PATE DEPT 6 6 PHYSICIAN LYNDA [facility] HIGH SEVER[facility]& THREAT FUNCJ EMERGENCY 13341 LÁZARO WALTON 6 6 PHYSICIAN U MARCIA DEPARTMEN S, PLLC T VISIT MODERATE SEVERITY EMERGENCY 07450 [facility] SCO 6 6 SAMANTHA DEPARTMEN EMERGENCY T VISIT SERV HIGH/URGE NT SEVERITY EMERGENCY 22359 LÁZARO PATE 6 6 PHYSICIAN LYNDA DEPARTMEN S, PLLC T VISIT HIGH/URGE NT SEVERITY EMERGENCY 27245 LÁZARO WALTON 6 6 PHYSICIAN U MARCIA DEPARTMEN S, PLLC T VISIT MODERATE SEVERITY EMERGENCY 91943 LÁZARO PATE 6 6 PHYSICIAN LYNDA DEPARTMEN S, PLLC T VISIT HIGH/URGE NT SEVERITY EMERGENCY 88091 LÁZARO HOWELL 6 6 [facility] VISIT HIGH/URGE NT SEVERITY EMERGENCY 03274 DANNY ARNOLD 6 6 SAMANTHA [facility] VIS[facility] PHYS HIGH/URGE NT SEVERITY EMERGENCY 50468 LÁZARO CHACON DEPT 6 6 PHYSICIAN FOR VISIT S, PLLC HIGH SEVERITY& THREAT FUNCJ EMERGENCY 68349 LÁZARO PATE 6 6 PHYSICIAN LYNDA DEPARTMEN S, PLLC T VISIT HIGH/URGE NT SEVERITY EMERGENCY 67323 [facility] ROSAURA 6 6 SAMANTHA BRANDY DEPARTMEN EMERGENCY T VISIT PHYS HIGH/URGE NT SEVERITY HOSPITAL DIANNA - 6 6 [facility] OUTPATIEN INC T EMERGENCY 33863 LÁZARO RODAS [facility] 6 6 PHYSICIAN DEPARTMEN S, PLLC T VISIT HIGH/URGE NT SEVERITY EMERGENCY 50503 DIANNA 6 6 [facility] DEPARTMEN INC T VISIT MODERATE SEVERITY EMERGENCY 30045 [facility] 6 6 N DEPARTMEN COMMUNTIY T VISIT HOSPITA HIGH/URGE NT SEVERITY EMERGENCY 57[address] [facility] DEPT 6 6 SAMANTHA MON VISIT EMERGENCY HIGH PHYS SEVERITY& THREAT [facility] - 6 6 N OUTPAT[facility]EN [facility] 5 5 N [facility] 75880 [facility] DEPT 5 5 SAMANTHA VISIT EMERGENCY HIGH SERV SEVERITY& THREAT FUNJ EMERGENCY 05479 [facility] 5 5 N DEPARTMEN COMMUNTIY T VISIT HOSPITA HIGH/URGE NT SEVERITY HOSPITAL DIANNA - 5 5 [facility] OUTPATIEN INC T EMERGENCY 26437 LÁZARO PATE DEPT 5 5 PHYSICIAN LYNDA VISIT S, PLLC HIGH SEVERITY& THREAT FUNJ EMERGENCY 24835 DIANNA 5 5 [facility] DEPARTMEN INC T VISIT LOW/MODER SEVERITY EMERGENCY 04353 [facility] DEPT 5 5 N VISIT COMMUNTIY HIGH HOSPITA SEVERITY& THREAT [facility] - 5 5 N OUTPATIEN COMMUNTIY T HOSPITA EMERGENCY 41741 LÁZARO OROZCO 5 5 PHYSICIAN BUTTS DEPARTMEN S, PLLC T VISIT MODERATE SEVERITY HOSPITAL DIANNA - 5 5 [facility] OUTPATIEN INC T EMERGENCY 26515 DIANNA 5 5 [facility] DEPARTMEN INC T VISIT LOW/MODER SEVERITY EMERGENCY 03108 LÁZARO PATE 5 5 PHYSICIAN LYNDA [facility]PARTMEN S, [facility] T VISIT HIGH/URGE NT SEVERITY EMERGENCY 77518 LÁZARO WALTON 5 5 PHYSICIAN U MARCIA DEPARTMEN S, PLLC T VISIT MODERATE SEVERITY HOSPITAL DIANNA - 5 5 [facility] OUTPATIEN INC T EMERGENCY 91253 DIANNA 5 5 [facility] DEPARTMEN INC T VISIT LOW/MODER SEVERITY EMERGENCY 69766 [facility] 5 5 N DEPARTMEN COMMUNTIY T VISIT HOSPITA HIGH/URGE NT SEVERITY EMERGENCY 26569 [facility] CELLARO DEPT 5 5 SAMANTHA - YORBA VISIT EMERGENCY PAT HIGH PHYS SEVERITY& THREAT [facility] - 5 5 N OUTPATIEN [facility] - 5 5 N OUTPATIEN COMMUNTIY T HOSPITA EMERGENCY 51435 [facility] 5 5 N DEPARTMEN COMMUNTIY T VISIT HOSPITA HIGH/URGE NT SEVERITY EMERGENCY 01630 [facility] DEPT 5 5 SAMANTHA JERILYN VISIT EMERGENCY HIGH PHYS SEVERITY& THREAT FUNJ EMERGENCY 08600 DIANNA 5 5 [facility] DEPARTMEN INC T VISIT LIMITED/M INOR PROB HOSPITAL DIANNA - 5 5 [facility] OUTPATIEN INC T EMERGENCY 58598 LÁZARO TELLSE 5 5 PHYSICIAN DEPARTMEN S, [facility] T VISIT MODERATE SEVERITY EMERGENCY 13282 LÁZARO PATE DEPT 5 5 PHYSICIAN LYNDA VISIT S, PLLC HIGH SEVERITY& THREAT FUNCJ EMERGENCY 59179 DIANNA 5 5 [facility] DEPARTMEN INC T VISIT LOW/MODER SEVERITY HOSPITAL DIANNA - 5 5 [facility] OUTPATIEN INC T EMERGENCY 49817 LÁZARO OLVERA 5 5 PHYSICIAN DEPARTMEN S, [facility] T VISIT HIGH/URGE NT SEVERITY EMERGENCY 28463 DIANNA 5 5 [facility] T VISIT MODERATE SEVERITY HOSPITAL DIANNA - 5 5 [facility] - 5 5 [facility] EMERGENC[facility] 50078 LÁZARO PATE 5 5 PHYSICIAN [facility], [facility] T VISIT HIGH/URGE NT SEVERITY EMERGENCY 48594 DIANNA 5 5 [facility] T VISIT LOW/MODER SEVERITY EMERGENCY 38858 UNIVERSIT 5 5 Y [facility] T VISIT HIGH/URGE NT SEVERITY HOSPITAL UNIVERSIT - 5 5 Y [facility] T EMERGENCY 86589 DANNY ANGELES 5 5 SAMANTHA PET [facility] EMERGENCY T VISIT PHYS HIGH/URGE NT SEVERITY EMERGENCY 90359 DIANNA 5 5 [facility] T VISIT HIGH/URGE NT SEVERITY EMERGENCY 22488 LÁZARO WALTON DEPT 5 5 PHYSICIAN U MARCIA VISIT [facility] HIGH SEVERITY& THREAT FUN HOSPITAL [facility] - 5 5 [facility] H[facility] T[facility]E - 5 5 N [facility] COMMUNTIY T HOSPITA EMERGENCY 67926 [facility] 5 5 N [facility] COMMUNTIY T VISIT HOSPITA HIGH/URGE NT SEVERITY EMERGENCY [id number] DANNY MONTALVO JR DEPT 5 5 [facility] VISIT EMERGENCY HIGH PHYS SEVERITY& THREAT FUNCJ EMERGENCY 61618 LÁZ[facility] PATE 5 5 [facility], [facility] T VISIT HIGH/URGE NT SEVERITY EMERGENCY 94579 DIANNA 5 5 [facility] T VISIT LOW/MODER SEVERITY HOSPITAL DIANNA - 5 5 [facility]IEN [facility] T EMERGENCY [id number] DIANNA 5 5 [facility] DEPARTMEN INC T VISIT LOW/MODER SEVERITY EMERGENCY 42048 DIANNA PATE 5 5 [facility] T VISIT P MODERATE SEVERITY HOSPITAL DIANNA - 5 5 [facility] OUTPATIEN INC T EMERGENCY [id number] DIANNA 5 5 [facility] INC T VISIT HIGH/URGE NT SEVERITY HOSPITAL DIANNA - 5 5 [facility] OUTPATIEN INC T EMERGENCY [id number] DIANNA ARBOLEDA 5 5 [facility] T VISIT P LOW/MODER SEVERITY EMERGENCY 37962 DIANNA 5 5 [facility] L[facility]MODER SEVERITY [facility]OSPITAL DIANNA Meza 5 [facility] OUTPATIEN INC T EMERGENCY 84565 DIANNA DEAN, 5 5 [facility] T VISIT P MODERATE SEVERITY
--- OUTSIDE RECORDS SUMMARY | 2016-10-10 12:36 | External Medical Summary Rpt ---
Author Author ROBERTO Valdez, [employer] Organization [employer] Address Unknown Phone Unavailable
--- OUTSIDE RECORDS SUMMARY | 2016-10-10 12:36 | External Medical Summary Rpt ---
Demographics Preferred Language Arabic Marital Status Unknown Zoroastrian Affiliation Unknown Race Unknown Ethnic Group Unknown Author Author , Organization [employer] Address Unknown Phone Unavailable Purpose Continuity of Care Document - through 2016 Immunization No patient found.
--- OUTSIDE RECORDS SUMMARY | 2016-10-10 12:36 | External Medical Summary Rpt ---
Demographics Preferred Language Kyrgyz Marital Status Unknown Moravian Affiliation Unknown Race Unknown Ethnic Group Unknown Author Author , Organization [employer] Address Unknown Phone Unavailable Purpose Continuity of Care Document - through 2016 Immunization No patient found.
[2016-10-10 12:39] LABS: URINE BILIRUBIN - DIPSTICK NEGATIVE (NEG); URINE BLOOD TRACE-INTACT (NEG)
[2016-10-10] MEDS ORDERED: HYDROCHLOROTHIA25 M1 PO (12:43)
[2016-10-10 13:22] LABS: HEMOGLOBIN 12.8 g/dL (12.2-16.2); LYMPH % 18.2 % (10-50.0)
--- NOTE | 2016-10-10 13:50 | RADIOLOGY REPORT PS360 ---
CT ABD PELVIS W/O CONTRAST CLINICAL INDICATION: RLQ PAIN ORDERING PHYSICIAN: Familia Gardner MD PATIENT AGE: 31 years COMPARISON: None TECHNIQUE: Axial images obtained with sagittal and coronal reformats. PROCEDURE: Oral Contrast: None IV Contrast: None . FINDINGS: No acute finding in the lung bases. Prior cholecystectomy. The liver, spleen, adrenal glands, and pancreas have an unremarkable unenhanced CT appearance. A rounded soft tissue density is present in the left upper quadrant likely related to a splenule at 18 mm. No hydronephrosis or obstructing ureteral calculus. Nonobstructing left nephrolithiasis. The cecum lies within the lower pelvic region slightly toward the left. The appendix has an unremarkable appearance and is just to the left of midline. No evidence of diverticulitis. The right ovary is enlarged at 5.6 x 2.9 cm. No focal inflammatory change or pelvic fluid evident. No acute bony anomalies. IMPRESSION: 1. Mildly enlarged right ovary of questionable clinical significance. 2. Unremarkable appendix. 3. Nonobstructing left nephrolithiasis
[2016-10-10] MEDS ORDERED: NITROFURANTOIN100 M2 PO (15:02)
[2016-10-10] MEDS ORDERED: PERCOGESIC EXTR1 TAB PO (15:03)
--- NOTE | 2016-10-10 15:03 | Emergency Room Report ---
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 N Clinical Suspician of Infection? N Mental Status: 1 - Regular (Normal Baseline) Sepsis Risk:Low Sepsis Risk Have you (or family members/close friends) recently traveled outside the [place]? N If Yes, where/when: Have you had exposure to infectious disease within the past month? N TB? Other? Specify: Source patient, RN notes reviewed, RN/MD Exam Limitations no limitations Comment This is a 31-year-old feel patient presenting to emergency room with RIGHT lower quadrant abdominal pain, since 6 AM today. Patient describes pain as pressure-like, nonradiating, without any associated dysuria. Patient has a history of previous kidney stones in the past, seen on multiple occasions in this department. Patient has any fever, nausea, vomiting, recent travel or exposure to sick contacts. ALLERGIES Coded Allergies: ketorolac (From TORADOL) (Mild, 01/28/16) aztreonam (NA-NAUSEA/VOMITING 01/28/16) cefaclor (01/28/16) doxycycline (01/28/16) levofloxacin (From LEVAQUIN) (01/28/16) midazolam (From VERSED) (01/28/16) ondansetron (From ZOFRAN ( HYDROCHLORIDE)) (01/28/16) sulfamethoxazole (From BACTRIM) (01/28/16) trimethoprim (From BACTRIM) (01/28/16) Home Medications Reported Medications Paroxetine (Paxil) 40 MG PO DAILY Mirtazapine (Remeron) 45 MG PO DAILY Buspirone Hcl (Buspar 10MG) 20 MG PO TID PRN SLEEP Clonazepam (Klonopin 0.5MG) 0.5 MG PO TID Ranitidine Hcl (Zantac) 150 MG PO PRN PRN GERD HYDROCHLOROTHIAZIDE (Hydrochlorothiazide) 25 MG PO DAILY History Medical History General CAD? No Angina: No [place]: No Hypertension? Yes Hyperlipidemia? Yes CHF? No DVT? No PE? No COPD? No Asthma? No Anemia? No GERD? No Gastric ulcers? No GI Bleed? No Hernia? No Thyroid Problems? No Hypothyroidism? No CVA? No Seizures? No Diabetes? No Insulin Dependent: No Insulin Pump: No Home FSBS? No Renal Insuffiency? No End Stage Renal Disease? No UTI? Yes Stones? Yes BPH? No GB Disease: Yes Nephritic Syndrome? No Asplenia? No Hepatitis? No Sickle Cell Disease? No Arthritis? No Migraines? No Cataracts? No Glaucoma? No MRSA? No HIV? No TB? No Anxiety? No Depression? No Cancer? No More? 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 1 Week Ago Family History Family Hx Diabetes No CAD No Hypertension No Hyperlipidemia No Cancer No TB No Social History Smoking Hx Smoker: Never Smoker Tobacco: Yes Type Snuff Packs/day < 1 Pack Alcohol Alcohol: No Review of Systems All Other Systems Reviewed and Negative Gastrointestinal abdominal pain, denies diarrhea, denies nausea, denies vomiting Physical Exam Vital Signs Vital Signs Date Time Temp Pulse Resp B/P Pulse O2 O2 Flow FiO2 Ox Delivery Rate 10/10 1536 97.7 95 18 144/101 98 10/10 1531 18 10/10 1418 88 18 144/101 98 10/10 1231 98.3 90 18 145/82 98 General Appearance normal appearance, WD/WN, mild distress Neck normal inspection, non-tender, supple, full range of motion Respiratory Status Yes: trachea midline, chest symmetrical, non tender chest. No: respiratory distress. Lung Sounds bilateral: normal breath sounds, lungs clear. 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 No Comment Advised patient to follow-up with Dr. Fu within the next 2 days. She appears medically stable, in stable medical condition. Throughout her emergency room visit the patient has constantly been seen working on her Macbook laptop, in obvious no distress. Results/Orders Laboratory Tests 10/10/16 1310: Sodium 139, Potassium 4.0, Chloride 105, Carbon Dioxide 25, BUN 9, Creatinine 0.9, Estimated Creat Clear 158, Estimated GFR (MDRD) 73, Glucose 108 H, Calcium 8.3 L, Total Bilirubin 0.3, AST 19, ALT 37, Alkaline Phosphatase 71, Total Protein 7.1, Albumin 2.9 L, Globulin 4.2 H, Albumin/Globulin Ratio 0.7 L, Amylase 31, Lipase 232, WBC 10.9 H, RBC 5.22, Hgb 12.8, Hct 41.3, MCV 79.1 L, RDW 15.3, Plt Count 482 H, MPV 5.7 L, Gran % 74.4, Gran # 8.1 H, Lymphocytes % 18.2, Monocytes % 4.7, Eosinophils % 2.5, Basophils % 0.2, Lymphocytes # 2.0, Monocytes # 0.5, Eosinophils # 0.3, Basophils # 0.0, PUBS MCHC 31.0 L, MCH 24.5 L 10/10/16 1235: Urine Color YELLOW, Urine Appearance CLEAR, Urine pH 7.0, Ur Specific [place] 1.015, Urine Protein NEGATIVE, Urine Ketones NEGATIVE, Urine Blood TRACE-INTACT, Urine Nitrate NEGATIVE, Urine Bilirubin NEGATIVE, Urine Urobilinogen 0.2, Ur Leukocyte Esterase 2+ H, Urine RBC OCC, Urine WBC 5-10, Ur Squamous Epith Cells 5-10, Urine Bacteria 3+, Urine Mucus 2+, Urine Glucose NEGATIVE Current Medication Orders Sig/Marsha Start time Last Medication Dose Route Stop Time Status Admin Nitrofurantoin 0 .STK-MED ONE 10/10 1531 DC PO Promethazine HCl 0 .STK-MED ONE 10/10 1528 DC .ROUTE Morphine Sulfate 0 .STK-MED ONE 10/10 1527 DC .ROUTE Morphine Sulfate 6 MG ONCE ONE 10/10 1500 CAN IM 10/10 1501 Nitrofurantoin 100 MG ONCE ONE 10/10 1500 DC 10/10 PO 10/10 1501 1531 Promethazine HCl 25 MG ONCE ONE 10/10 1500 DC / IM 10/10 1501 1531 Sodium Chloride 25 ML ONCE ONE 10/10 1500 DC IV 10/10 1514 Morphine Sulfate 4 MG ONCE ONE 10/10 1330 DC / IM 10/10 1331 1531 Promethazine HCl 12.5 MG ONCE ONE 10/10 1245 CAN IV 10/10 1246 Sodium Chloride 1,000 ML .Q1H1M 10/10 1245 DC IV 10/10 1345 Sodium Chloride 10 ML PRN PRN 10/10 1245 DC IV 10/11 1233 Sodium Chloride 25 ML ONCE ONE 10/10 1245 CAN IV 10/10 1259 Orders Procedure Date/time Status DIET-NOTHING BY MOUTH 10/10 D Active CULTURE, URINE 10/[address] ABD/PELVIS REQ 10/10 1232 Active URINE 10/10 1232 Complete LIPASE 10/10 1232 Complete CBC WITH AUTO DIFF 10/10 1232 Complete CHEM 12 PROFILE 10/10 1232 Complete AMYLASE 10/10 1232 Complete URINALYSIS/COMPLETE 10/10 1231 Complete XRAY/CT/US XRAY/CT/US CT abdomen, pelvis CT interpretation by discussed w/radiologist CT Results abnormal Comment RIGHT ovary enlarged, per radiologist's report Departure Departure Time of Disposition 1458 Disposition DC Home or Self Care(routine) Clinical Impression Primary Impression: Right ovarian cyst Secondary Impressions: UTI (urinary tract infection) Qualifiers: Urinary tract infection type: acute cystitis Hematuria presence: without hematuria Qualified Code: N30.00 - Acute cystitis without hematuria Condition STABLE Referrals Tank ROMAN,Doug Camara: Today after leaving ER Please call today and make an appointment to be seen within the next 2 days Patient Instructions DI for Ovarian Cyst, Nitrofurantoin Additional Instructions Please drink plenty of fluids, take the medications prescribed as directed, follow-up with Dr. Fu within the next 2 days regarding your RIGHT lower abdominal pain, possibly related to an ovarian cyst. Discharge Counseling Counseled pt/family regarding diagnosis, test results, medications/RX, home care, follow up needs Comment Please drink plenty of fluids, take the medications prescribed as directed, follow-up with Dr. Fu within the next 2 days regarding your RIGHT lower abdominal pain, possibly related to an ovarian cyst. Prescriptions Current Visit Scripts NITROFURANTOIN (Nitrofurantoin) 100 MG PO BID #14 CAP ACETAMINOPHEN/DIPHENHYDRAMINE (Percogesic Extra Str Caplet) 1 TAB PO QIDP PRN pain #20 TAB ED Critical Care Critical Care No at 7600
[2016-10-10 15:36] VITALS: BP 144/101
== END 2016-10-10 15:37 | disposition home or self-care (01) ==
LOC: ER 12:23
PROVIDERS: Emergency Medicine
DX: N83.201 Unspecified ovarian cyst, right side (principal); N30.00 Acute cystitis without hematuria

== ENCOUNTER 2017-02-19 18:45 | Emergency (ER) | payer MEDICAID ==
[~2017-02-19] VITALS: Ht 154.9 cm; Wt 108.0 kg
[~2017-02-19 18:45] MED LIST changes: +AMOXICOT500 MG PO; +BENTYL10 M1 PO; +PROAIR HFA0.09 MG/AC IH; +REMERON30 M1 PO; +TYLENOL WITH CO1 TA1 PO
[2017-02-19 19:24] LABS: URINE BILIRUBIN - DIPSTICK NEGATIVE (NEG); URINE BLOOD 1+ (NEG)
[2017-02-19 19:43] LABS: URINE SQUAMOUS CELLS TNTC #/hpf (0-5)
--- NOTE | 2017-02-19 20:13 | Emergency Room Report ---
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 N Clinical Suspician of Infection? N Mental Status: 1 - Regular (Normal Baseline) Sepsis Risk:Possible Sepsis Risk Have you (or family members/close friends) recently traveled outside the [place]? N If Yes, where/when: Have you had exposure to infectious disease within the past month? N TB? Other? Specify: Source patient, RN notes reviewed, family, old records Exam Limitations no limitations Comment pt with lt flank pain with no fever or rash and has hx of occ kidney stone Cardiac Chest Pain Chest pain indicative of cardiac No Timing/Duration this evening Severity moderate ALLERGIES Coded Allergies: ketorolac (From TORADOL) (Mild, 01/28/16) aztreonam (NA-NAUSEA/VOMITING 01/28/16) cefaclor (01/28/16) doxycycline (01/28/16) levofloxacin (From LEVAQUIN) (01/28/16) midazolam (From VERSED) (01/28/16) ondansetron (From ZOFRAN ( HYDROCHLORIDE)) (01/28/16) sulfamethoxazole (From BACTRIM) (01/28/16) trimethoprim (From BACTRIM) (01/28/16) Home Medications Reported Medications HYDROCHLOROTHIAZIDE (Hydrochlorothiazide) 25 MG PO DAILY Buspirone Hcl (Buspar 10MG) 30 MG PO TIDP PRN ANXIETY Mirtazapine (Remeron) 30 MG PO QHS Albuterol Sulfate (Proair Hfa) 2 PUFF IH Q4HP PRN SHORTNESS OF BREATH Paroxetine (Paxil) 40 MG PO DAILY Ranitidine Hcl (Zantac) 150 MG PO PRN PRN GERD History Medical History General CAD? No Angina: No [place]: No Hypertension? Yes Hyperlipidemia? Yes CHF? No DVT? No PE? No COPD? No Asthma? Yes Anemia? No GERD? No Gastric ulcers? No GI Bleed? No Hernia? No Thyroid Problems? No Hypothyroidism? No CVA? No Seizures? No Diabetes? No Insulin Dependent: No Insulin Pump: No Home FSBS? No Renal Insuffiency? No End Stage Renal Disease? No UTI? Yes Stones? Yes BPH? No GB Disease: Yes Nephritic Syndrome? No Asplenia? No Hepatitis? No Sickle Cell Disease? No Arthritis? No Migraines? Yes Cataracts? No Glaucoma? No MRSA? No HIV? No TB? No Anxiety? Yes Depression? Yes Cancer? No More? 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 Respiratory denies cough, denies shortness of breath, denies wheezing Cardiovascular denies chest pain, denies palpitations, denies syncope Gastrointestinal see HPI, denies abdominal pain, nausea, denies vomiting Genitourinary denies: dysuria, frequency, hesitancy, hematuria. Musculoskeletal denies back pain, denies joint pain, denies joint swelling, denies neck pain Skin denies rash Psychiatric/Neurological denies headache, denies seizure Physical Exam Vital Signs Vital Signs Date Time Temp Pulse Resp B/P Pulse O2 O2 Flow FiO2 Ox Delivery Rate 02/19 2019 102 16 178/100 98 02/19 1916 98.7 112 20 179/115 99 - WBC >12,000 or <4,000 or 10% bands? 2 or more SIRS Criteria Met? B/P:178/100 MAP:136 Creatinine >2.0? UA output<0.5ml/kg/hr for 2 hrs? Platelet count >100,000? Lactate >2.0mmol/1? INR >1.2 or PTT > than 60 sec? Evidence of Organ Dysfunction? Provider documented clinical suspician of infection? N Sepsis Criteria Count: 2 Sepsis Risk: Possible Sepsis Risk General Appearance no apparent distress Eye Exam - bilateral eye PERRL, bilateral eye EOMI Ear, Nose, Throat normal ENT inspection Neck supple Respiratory Status No: respiratory distress. Lung Sounds bilateral: lungs clear. 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 No Results/Orders Laboratory Tests 02/19/171914: Urine Color YELLOW, Urine Appearance SL CLOUDY, Urine pH 6.0, Ur Specific [place] 1.020, Urine Protein NEGATIVE, Urine Ketones NEGATIVE, Urine Blood 1+ H , Urine Nitrate NEGATIVE, Urine Bilirubin NEGATIVE, Urine Urobilinogen 0.2, Ur Leukocyte Esterase 3+ H, Urine RBC 3-5, Urine WBC 20-50, Ur Squamous Epith Cells TNTC, Urine Bacteria 3+, Hyaline Casts OCC, Urine Glucose NEGATIVE Current Medication Orders Sig/Marsha Start time Last Medication Dose Route Stop Time Status Admin Sodium Chloride 10 ML PRN PRN 02/19 1930 AC IV 02/21 1924 Orders Procedure Date/time Status DIET-NOTHING BY MOUTH 02/20 B Active URINE 02/[address] ABD & PELVIS W/O CONTRAST 02/[address] SCAN REQ 02/20 2016 Complete IV SALINE LOCK 02/20 1924 Active CBC WITH AUTO DIFF 02/20 1924 Active CHEM 12 PROFILE 02/20 1924 Active CULTURE, URINE 02/19 1915 Active URINALYSIS/COMPLETE 02/19 1915 Complete XRAY/CT/US XRAY/CT/US CT abdomen, pelvis CT interpretation by discussed w/radiologist Time results known: 2204 CT Results abnormal (see report) Departure Departure Time of Disposition 2204 Disposition DC Home or Self Care(routine) Clinical Impression Primary Impression: UTI (urinary tract infection) Qualifiers: Urinary tract infection type: acute cystitis Hematuria presence: without hematuria Qualified Code: N30.00 - Acute cystitis without hematuria Secondary Impressions: Left flank pain Condition STABLE Referrals Mai Krueger (Family) Patient Instructions DI for Urinary Tract Infection (UTI) Additional Instructions fluids and use meds and see pcp for follow up Discharge Counseling Counseled pt/family regarding diagnosis, test results, medications/RX, follow up needs Prescriptions Current Visit Scripts NITROFURANTOIN MONOHYD/M-CRYST (Macrobid 100 MG Capsule) 100 MG PO BID #14 CAP ED Critical Care Critical Care No at 2207
[2017-02-19] MEDS ORDERED: MACROBID100 M3 PO (22:08)
[2017-02-19 22:31] VITALS: BP 158/95
--- NOTE | 2017-02-20 14:48 | RADIOLOGY REPORT PS360 ---
CT ABD PELVIS W/O CONTRAST CLINICAL INDICATION: Left-sided flank pain FLANK PAIN ORDERING PHYSICIAN: Jessica Bryant MD PATIENT AGE: 31 years COMPARISON: 5 3 17 TECHNIQUE: Axial images obtained with sagittal and coronal reformats. PROCEDURE: Oral Contrast: None IV Contrast: None . FINDINGS: Minimal atelectatic change right lung base. Prior cholecystectomy. No biliary dilatation. The liver, spleen, adrenal glands, and pancreas are unremarkable. There are multiple left renal calculi the largest in the lower pole 6 mm. No hydronephrosis or ureteral calculi evident. No intestinal obstruction or free air. No evidence of appendicitis. The cecum is midline and the appendix is midline and has an unremarkable appearance otherwise. There is sigmoid diverticulosis but no evidence of diverticulitis. The right ovary is prominent measuring up to 4 cm and could be due to underlying cystic involvement. Pelvic ultrasound may confirm. No acute bony anomalies. IMPRESSION: 1. Left nephrolithiasis. No obstructing renal or ureteral calculi. 2. Diverticulosis. No evidence of diverticulitis. 3. Possible right ovarian cyst which may be confirmed with ultrasound.
[2017-02-27] MEDS ORDERED: PYRIDIUM100 M2 PO (15:27)
[2017-02-27] MEDS ORDERED: MACROBID100 M3 PO (15:27)
== END 2017-02-19 22:31 | disposition home or self-care (01) ==
LOC: ER 18:45
PROVIDERS: Emergency Medicine
DX: N30.00 Acute cystitis without hematuria (principal); I10 Essential (primary) hypertension; E78.5 Hyperlipidemia, unspecified; J45.909 Unspecified asthma, uncomplicated; F41.9 Anxiety disorder, unspecified; Z79.899 Other long term (current) drug therapy

== ENCOUNTER 2017-02-27 14:44 | Emergency (ER) | payer MEDICAID ==
[~2017-02-27] VITALS: Ht 154.9 cm; Wt 102.5 kg
[2017-02-27 15:04] LABS: URINE BILIRUBIN - DIPSTICK NEGATIVE (NEG); URINE BLOOD 2+ (NEG)
--- NOTE | 2017-02-27 15:18 | Emergency Room Report ---
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 N Clinical Suspician of Infection? N Mental Status: 1 - Regular (Normal Baseline) Sepsis Risk:Low Sepsis Risk Have you (or family members/close friends) recently traveled outside the [place]? N If Yes, where/when: Have you had exposure to infectious disease within the past month? TB? Other? Specify: Source patient, RN notes reviewed Exam Limitations no limitations Comment Pt saw PCP yesterday and started on Levaquin for UTI but she is allergic to Levaquin. Comes to the ED now with back pain and dysuria and UA showed >100 WBC per hpf Cardiac Chest Pain Chest pain indicative of cardiac No ALLERGIES Coded Allergies: ketorolac (From TORADOL) (Mild, 01/28/16) aztreonam (NA-NAUSEA/VOMITING 01/28/16) cefaclor (01/28/16) codeine (BLEEDING OF EYES AND NOSE 02/19/17) doxycycline (01/28/16) levofloxacin (From LEVAQUIN) (01/28/16) midazolam (From VERSED) (01/28/16) ondansetron (From ZOFRAN ( HYDROCHLORIDE)) (01/28/16) sulfamethoxazole (From BACTRIM) (01/28/16) trimethoprim (From BACTRIM) (01/28/16) Home Medications Active Scripts NITROFURANTOIN MONOHYD/M-CRYST (Macrobid 100 MG Capsule) 100 MG PO BID #14 CAP Prov: 02/19/17 Reported Medications HYDROCHLOROTHIAZIDE (Hydrochlorothiazide) 25 MG PO DAILY Buspirone Hcl (Buspar 10MG) 30 MG PO TIDP PRN ANXIETY Mirtazapine (Remeron) 30 MG PO QHS Albuterol Sulfate (Proair Hfa) 2 PUFF IH Q4HP PRN SHORTNESS OF BREATH Paroxetine (Paxil) 40 MG PO DAILY Ranitidine Hcl (Zantac) 150 MG PO PRN PRN GERD History Medical History General CAD? No Angina: No [place]: No Hypertension? Yes Hyperlipidemia? Yes CHF? No DVT? No PE? No COPD? No Asthma? Yes Anemia? No GERD? No Gastric ulcers? No GI Bleed? No Hernia? No Thyroid Problems? No Hypothyroidism? No CVA? No Seizures? No Diabetes? No Insulin Dependent: No Insulin Pump: No Home FSBS? No Renal Insuffiency? No End Stage Renal Disease? No UTI? Yes Stones? Yes BPH? No GB Disease: Yes Nephritic Syndrome? No Asplenia? No Hepatitis? No Sickle Cell Disease? No Arthritis? No Migraines? Yes Cataracts? No Glaucoma? No MRSA? No HIV? No TB? No Anxiety? Yes Depression? Yes Cancer? No More? 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 Physical Exam Vital Signs Vital Signs Date Time Temp Pulse Resp B/P Pulse O2 O2 Flow FiO2 Ox Delivery Rate 02/27 1454 98.2 107 18 164/74 98 General Appearance normal appearance, WD/WN, no apparent distress Respiratory Status No: respiratory distress. 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 No Results/Orders Laboratory Tests 02/27/17 1500: Urine Color YELLOW, Urine Appearance CLOUDY, Urine pH 6.5, Ur Specific [place] 1.010, Urine Protein NEGATIVE, Urine Ketones NEGATIVE, Urine Blood 2+ H, Urine Nitrate NEGATIVE, Urine Bilirubin NEGATIVE, Urine Urobilinogen 0.2, Ur Leukocyte Esterase 2+ H, Urine Glucose NEGATIVE Orders Procedure Date/time Status URINALYSIS/COMPLETE 02/27 1452 Complete Departure Departure Time of Disposition 1525 Disposition DC Home or Self Care(routine) Clinical Impression Primary Impression: Cystitis without hematuria Condition STABLE Referrals Tyrone ROMAN,A.C. (Family): 3 Days-Call Office Patient Instructions Acute Cystitis, DI for Acute Cystitis Additional Instructions Use medicine as directed and followup with PCP in 3 to 4 days to recheck Urine Discharge Counseling Counseled pt/family regarding diagnosis, test results, medications/RX, home care, follow up needs Prescriptions Current Visit Scripts NITROFURANTOIN MONOHYD/M-CRYST (Macrobid 100 MG Capsule) 100 MG PO BID #20 CAP Phenazopyridine HCl (Pyridium) 100 MG PO TID #21 TAB ED Critical Care Critical Care No If Critical Care minutes are documented, the time involved in the performance of seperately reportable procedures was not counted toward critical care time documented. I directly delivered medical care to this critically ill and/or injured patient. Timely evaluation and treatment was necessary to address the significant organ system(s) dysfunction present in this patient. at 1522
--- NOTE | 2017-02-27 15:18 | Emergency Room Report ---
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 N Clinical Suspician of Infection? N Mental Status: 1 - Regular (Normal Baseline) Sepsis Risk:Low Sepsis Risk Have you (or family members/close friends) recently traveled outside the [place]? N If Yes, where/when: Have you had exposure to infectious disease within the past month? TB? Other? Specify: Source patient, RN notes reviewed Exam Limitations no limitations Comment Pt saw PCP yesterday and started on Levaquin for UTI but she is allergic to Levaquin. Comes to the ED now with back pain and dysuria and UA showed >100 WBC per hpf Cardiac Chest Pain Chest pain indicative of cardiac No ALLERGIES Coded Allergies: ketorolac (From TORADOL) (Mild, 01/28/16) aztreonam (NA-NAUSEA/VOMITING 01/28/16) cefaclor (01/28/16) codeine (BLEEDING OF EYES AND NOSE 02/19/17) doxycycline (01/28/16) levofloxacin (From LEVAQUIN) (01/28/16) midazolam (From VERSED) (01/28/16) ondansetron (From ZOFRAN ( HYDROCHLORIDE)) (01/28/16) sulfamethoxazole (From BACTRIM) (01/28/16) trimethoprim (From BACTRIM) (01/28/16) Home Medications Active Scripts NITROFURANTOIN MONOHYD/M-CRYST (Macrobid 100 MG Capsule) 100 MG PO BID #14 CAP Prov: 02/19/17 Reported Medications HYDROCHLOROTHIAZIDE (Hydrochlorothiazide) 25 MG PO DAILY Buspirone Hcl (Buspar 10MG) 30 MG PO TIDP PRN ANXIETY Mirtazapine (Remeron) 30 MG PO QHS Albuterol Sulfate (Proair Hfa) 2 PUFF IH Q4HP PRN SHORTNESS OF BREATH Paroxetine (Paxil) 40 MG PO DAILY Ranitidine Hcl (Zantac) 150 MG PO PRN PRN GERD History Medical History General CAD? No Angina: No [place]: No Hypertension? Yes Hyperlipidemia? Yes CHF? No DVT? No PE? No COPD? No Asthma? Yes Anemia? No GERD? No Gastric ulcers? No GI Bleed? No Hernia? No Thyroid Problems? No Hypothyroidism? No CVA? No Seizures? No Diabetes? No Insulin Dependent: No Insulin Pump: No Home FSBS? No Renal Insuffiency? No End Stage Renal Disease? No UTI? Yes Stones? Yes BPH? No GB Disease: Yes Nephritic Syndrome? No Asplenia? No Hepatitis? No Sickle Cell Disease? No Arthritis? No Migraines? Yes Cataracts? No Glaucoma? No MRSA? No HIV? No TB? No Anxiety? Yes Depression? Yes Cancer? No More? 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 Physical Exam Vital Signs Vital Signs Date Time Temp Pulse Resp B/P Pulse O2 O2 Flow FiO2 Ox Delivery Rate 02/27 1454 98.2 107 18 164/74 98 General Appearance normal appearance, WD/WN, no apparent distress Respiratory Status No: respiratory distress. 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 No Results/Orders Laboratory Tests 02/27/17 1500: Urine Color YELLOW, Urine Appearance CLOUDY, Urine pH 6.5, Ur Specific [place] 1.010, Urine Protein NEGATIVE, Urine Ketones NEGATIVE, Urine Blood 2+ H, Urine Nitrate NEGATIVE, Urine Bilirubin NEGATIVE, Urine Urobilinogen 0.2, Ur Leukocyte Esterase 2+ H, Urine Glucose NEGATIVE Orders Procedure Date/time Status URINALYSIS/COMPLETE 02/27 1452 Complete Departure Departure Time of Disposition 1525 Disposition DC Home or Self Care(routine) Clinical Impression Primary Impression: Cystitis without hematuria Condition STABLE Referrals Tyrone ROMAN,A.C. (Family): 3 Days-Call Office Patient Instructions Acute Cystitis, DI for Acute Cystitis Additional Instructions Use medicine as directed and followup with PCP in 3 to 4 days to recheck Urine Discharge Counseling Counseled pt/family regarding diagnosis, test results, medications/RX, home care, follow up needs Prescriptions Current Visit Scripts NITROFURANTOIN MONOHYD/M-CRYST (Macrobid 100 MG Capsule) 100 MG PO BID #20 CAP Phenazopyridine HCl (Pyridium) 100 MG PO TID #21 TAB ED Critical Care Critical Care No If Critical Care minutes are documented, the time involved in the performance of seperately reportable procedures was not counted toward critical care time documented. I directly delivered medical care to this critically ill and/or injured patient. Timely evaluation and treatment was necessary to address the significant organ system(s) dysfunction present in this patient. at 1526
[2017-02-27 15:34] LABS: URINE SQUAMOUS CELLS 20-50 #/hpf (0-5)
[2017-02-27 15:37] VITALS: BP 156/75
== END 2017-02-27 15:37 | disposition home or self-care (01) ==
LOC: ER 14:44
PROVIDERS: General Practice
DX: N30.90 Cystitis, unspecified without hematuria (principal); Z88.3 Allergy status to other anti-infective agents; F17.210 Nicotine dependence, cigarettes, uncomplicated; I10 Essential (primary) hypertension; J45.909 Unspecified asthma, uncomplicated; F41.9 Anxiety disorder, unspecified; F32.9 Major depressive disorder, single episode, unspecified; Z79.899 Other long term (current) drug therapy; Z51.81 Encounter for therapeutic drug level monitoring

== ENCOUNTER → 2017-02-27 | Outpatient (CLI) | payer MEDICAID ==
[2017-02-27 01:25] LABS: URINE BILIRUBIN - DIPSTICK NEGATIVE (NEG); URINE BLOOD 3+ (NEG)
== END ==
LOC: LAB 00:05
PROVIDERS: Nurse Practitioner Family
DX: N39.0 Urinary tract infection, site not specified (principal); D72.829 Elevated white blood cell count, unspecified; R19.7 Diarrhea, unspecified; R53.83 Other fatigue; R10.9 Unspecified abdominal pain

== ENCOUNTER 2017-03-21 00:11 | Emergency (ER) | payer MEDICAID ==
[~2017-03-21] VITALS: Ht 154.9 cm; Wt 107.5 kg
[2017-03-21 00:32] LABS: URINE BILIRUBIN - DIPSTICK NEGATIVE (NEG); URINE BLOOD 2+ (NEG)
[2017-03-21 00:52] LABS: HEMOGLOBIN 13.4 g/dL (12.2-16.2); LYMPH # 3.1 K/mm3 (0.7-4.5); LYMPH % 18.8 % (10-50.0)
--- NOTE | 2017-03-21 01:02 | Emergency Room Report ---
History of Present Illness Time Seen by 0000 Presenting Problem in Triage Pt arrived:Walked Presenting Problem:C/O LEFT FLANK PAIN AND DECREASED AMOUNT OF URINATION SINCE KIDNEY STONE REMOVAL LAST WEEK AT [facility] [place]. 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 N Clinical Suspician of Infection? N Mental Status: 1 - Regular (Normal Baseline) Sepsis Risk:Possible Sepsis Risk Have you (or family members/close friends) recently traveled outside the [place]? N If Yes, where/when: Have you had exposure to infectious disease within the past month? N TB? Other? Specify: Source patient, RN notes reviewed, family, old records Exam Limitations no limitations Comment recent gu surg with stent removed saturday and saw pcp yesterday and has lt flank pain w/o hematuria and no vomiting - Cardiac Chest Pain Chest pain indicative of cardiac No Timing/Duration this evening Severity moderate ALLERGIES Coded Allergies: ketorolac (From TORADOL) (Mild, 01/28/16) aztreonam (NA-NAUSEA/VOMITING 01/28/16) cefaclor (01/28/16) codeine (BLEEDING OF EYES AND NOSE 02/19/17) doxycycline (01/28/16) levofloxacin (From LEVAQUIN) (01/28/16) midazolam (From VERSED) (01/28/16) ondansetron (From ZOFRAN ( HYDROCHLORIDE)) (01/28/16) sulfamethoxazole (From BACTRIM) (01/28/16) trimethoprim (From BACTRIM) (01/28/16) Home Medications Active Scripts NITROFURANTOIN MONOHYD/M-CRYST (Macrobid 100 MG Capsule) 100 MG PO BID #20 CAP Prov: 02/27/17 Phenazopyridine HCl (Pyridium) 100 MG PO TID #21 TAB Prov: 02/27/17 NITROFURANTOIN MONOHYD/M-CRYST (Macrobid 100 MG Capsule) 100 MG PO BID #14 CAP Prov: 02/19/17 Reported Medications HYDROCHLOROTHIAZIDE (Hydrochlorothiazide) 25 MG PO DAILY Buspirone Hcl (Buspar 10MG) 30 MG PO TIDP PRN ANXIETY Mirtazapine (Remeron) 30 MG PO QHS Albuterol Sulfate (Proair Hfa) 2 PUFF IH Q4HP PRN SHORTNESS OF BREATH Paroxetine (Paxil) 40 MG PO DAILY Ranitidine Hcl (Zantac) 150 MG PO PRN PRN GERD History Medical History General CAD? No Angina: No [place]: No Hypertension? Yes Hyperlipidemia? Yes CHF? No DVT? No PE? No COPD? No Asthma? Yes Anemia? No GERD? No Gastric ulcers? No GI Bleed? No Hernia? No Thyroid Problems? No Hypothyroidism? No CVA? No Seizures? No Diabetes? No Insulin Dependent: No Insulin Pump: No Home FSBS? No Renal Insuffiency? No End Stage Renal Disease? No UTI? Yes Stones? Yes BPH? No GB Disease: Yes Nephritic Syndrome? No Asplenia? No Hepatitis? No Sickle Cell Disease? No Arthritis? No Migraines? Yes Cataracts? No Glaucoma? No MRSA? No HIV? No TB? No Anxiety? Yes Depression? Yes Cancer? No More? 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 Respiratory denies cough, denies shortness of breath, denies wheezing Cardiovascular denies chest pain, denies syncope Gastrointestinal denies abdominal pain, denies diarrhea, denies vomiting Genitourinary see HPI. denies: dysuria, frequency, hesitancy, hematuria. Musculoskeletal denies back pain, denies joint pain, denies joint swelling, denies neck pain Skin denies rash Psychiatric/Neurological denies headache, denies seizure Physical Exam Vital Signs Vital Signs Date Time Temp Pulse Resp B/P Pulse O2 O2 Flow FiO2 Ox Delivery Rate 03/21 0017 98.5 119 20 165/105 98 - WBC >12,000 or <4,000 or 10% bands? 2 or more SIRS Criteria Met? B/P:165/105 MAP:125 Creatinine >2.0? UA output<0.5ml/kg/hr for 2 hrs? Platelet count >100,000? Lactate >2.0mmol/1? INR >1.2 or PTT > than 60 sec? Evidence of Organ Dysfunction? Provider documented clinical suspician of infection? N Sepsis Criteria Count: 2 Sepsis Risk: Possible Sepsis Risk General Appearance no apparent distress Eye Exam - bilateral eye PERRL, bilateral eye EOMI Ear, Nose, Throat normal ENT inspection Neck supple Respiratory Status No: respiratory distress. Lung Sounds bilateral: lungs clear. 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 No Results/Orders Laboratory Tests 03/21/17 0030: Sodium 136, Potassium 4.1, Chloride 102, Carbon Dioxide 28, BUN 18, Creatinine 1.0, Estimated Creat Clear 138, Estimated GFR (MDRD) 65, Glucose 116 H, Calcium 8.9, Total Bilirubin 0.3, AST 11 L, ALT 31, Alkaline Phosphatase 74, Total Protein 8.0, Albumin 3.5, Globulin 4.5 H, Albumin/Globulin Ratio 0.8 L, WBC 16.5 H, RBC 5.40, Hgb 13.4, Hct 46.9, MCV 86.9, RDW 21.6 H, Plt Count 563 H, MPV 18.3 H, Gran % 71.6, Gran # 11.8 H, Total Counted Pending, Lymphocytes % 18.8, Monocytes % 7.1, Eosinophils % 2.5, Basophils % 17.7 H, Neutrophils Pending, Lymphocytes (Manual) Pending, Lymphocytes # 3.1, Monocytes # 1.2 H, Eosinophils # 0.4, Basophils # 2.9 H, Platelet Estimate Pending, PUBS MCHC 28.6 L, MCH 24.9 L 03/21/17 0024: Urine Color YELLOW, Urine Appearance CLEAR, Urine pH 7.0, Ur Specific [place] 1.015, Urine Protein NEGATIVE, Urine Ketones NEGATIVE, Urine Blood 2+ H, Urine Nitrate NEGATIVE, Urine Bilirubin NEGATIVE, Urine Urobilinogen 0.2, Ur Leukocyte Esterase 3+ H, Urine RBC 10-20, Urine WBC 20-50, Ur Squamous Epith Cells 3-5, Urine Bacteria 1+, Urine Mucus 1+, Urine Glucose NEGATIVE Orders Procedure Date/time Status DIET-NOTHING BY MOUTH 03/21 B Active URINE 03/21 0054 Complete DIFFERENTIAL-WBC 03/[address] SCAN REQ 03/21 002 Complete CULTURE, URINE 03/214 Active URINALYSIS/COMPLETE 03/21 002 Complete COMPLETE METABOLIC PANEL 03/21 002 Complete CBC WITH AUTO DIFF 03/[address] ABD & PELVIS W/O CONTRAST 03/21 UNK Active XRAY/CT/US XRAY/CT/US CT abdomen, pelvis CT interpretation by discussed w/radiologist Time results known: 014 CT Results abnormal (see report) Departure Departure Time of Disposition 014 Disposition DC Home or Self Care(routine) Clinical Impression Primary Impression: Renal colic on left side Secondary Impressions: UTI (urinary tract infection) Qualifiers: Urinary tract infection type: acute cystitis Hematuria presence: without hematuria Qualified Code: N30.00 - Acute cystitis without hematuria Condition STABLE Referrals Arnoldo Arvizu MD Patient Instructions DI for Kidney Stones Additional Instructions use meds and call urology for follow up Discharge Counseling Counseled pt/family regarding diagnosis, test results, medications/RX, follow up needs Prescriptions Current Visit Scripts NITROFURANTOIN MONOHYD/M-CRYST (Macrobid 100 MG Capsule) 100 MG PO BID #14 CAP ED Critical Care Critical Care No at 0154
[2017-03-21] MEDS ORDERED: MACROBID100 M3 PO (01:54)
[2017-03-21 02:06] VITALS: BP 153/100
[2017-03-21 05:56] LABS: NEUTROPHILS 69 % (42-76); STOMATOCYTE 1+
--- NOTE | 2017-03-21 06:37 | RADIOLOGY REPORT PS360 ---
CT ABD PELVIS W/O CONTRAST CLINICAL INDICATION: Left flank pain, recent stent removal on 03/17/2017 FLANK PAIN ORDERING PHYSICIAN: Jessica Bryant MD PATIENT AGE: 31 years COMPARISON: 02/19/2017 TECHNIQUE: Axial images obtained with sagittal and coronal reformats. PROCEDURE: Oral Contrast: None IV Contrast: None . FINDINGS: Lung bases are clear. Prior cholecystectomy without biliary dilatation. The liver, spleen, adrenal glands, pancreas, and right kidney have an unremarkable appearance. There is moderate left hydronephrosis and hydroureter. No obvious obstructing ureteral calculus. Nonobstructing 2 mm stone is present in the upper and lower pole of the left kidney. No intestinal obstruction or free air. No abnormal fluid collections. There is mild prominence of the right ovary nonspecific IMPRESSION: 1. Moderate left hydronephrosis and hydroureter but no definite obstructing ureteral calculus. This could be due to recent passage of a ureteral stone or distal ureteral obstruction from other causes. Please correlate clinically. 2. Punctate left nephrolithiasis
--- OUTSIDE RECORDS SUMMARY | 2017-03-23 15:37 | External Medical Summary Rpt | CCD ---
Author Author , ROBERTO MEJIA Address Unknown Phone [email or web address] Care Team Providers Care Last Code Striper Name Role Phone A Kaelyn HERRERA MD PSC, Lynn Unavailable Unavailable Kaelyn HERRERA MD PSC DAVIDSON SHANNON, DAVIDSON Unavailable Unavailable SHANNON ARNJOHNNA KAEL, ARNOLD Unavailable Unavailable KAEL SOSA MAY, SOSA MAY Unavailable Unavailable BEINEKE MARCIA, BEINEKE Unavailable Unavailable MARCIA FAUSTINO JAM, FAUSTINO JAM Unavailable Unavailable CONNORS, CONNORS Unavailable Unavailable CONNORS ALL, CONNORS ALL Unavailable Unavailable ILANA MON, Unavailable Unavailable ILANA MON [facility] Unavailable Unavailable SERVICE, [facility] HARRINGTON, HARRINGTON Unavailable Unavailable HARRINGTON JAM, HARRINGTON JAM Unavailable Unavailable FU CAR, FU Unavailable Unavailable CAR VASQUEZ ALPESH, Unavailable Unavailable VASQUEZ ALPESH VASQUEZ ALPESH, Unavailable Unavailable VASQUEZ ALPESH CELLAROSI - YORBA Unavailable Unavailable PAT, CELLAROSI - YORBA PAT CHESTNUT, CHESTNUT Unavailable Unavailable [facility], Unavailable Unavailable [facility] KAYLA, KAYLA Unavailable Unavailable KAYLA WOLFGANG, Unavailable Unavailable KAYLA WOLFGANG TAM MAT, TAM Unavailable Unavailable MAT FAUGHN BUTTS, FAUGHN Unavailable Unavailable BUTTS SANCHEZ JERILYN, SANCHEZ Unavailable Unavailable JERILYN JR JERMAINE, JERMAINE, Unavailable Unavailable JR JERMAINE, ELFabiana, Unavailable Unavailable JR AISSATOU DEAN HERLINDA, HERLINDA Unavailable Unavailable HERLINDA LYNDA, HERLINDA Unavailable Unavailable LYNDA RICK, RICK Unavailable Unavailable RICK ARTI, RICK Unavailable Unavailable ARTI GEILE, GEILE Unavailable Unavailable [facility] Un[facility], [facility] YULI RHO, YULI Unavailable Unavailable RHO GUNDUMALLA GOP, Unavailable Unavailable GUNDUMALLA GOP JUDD LAURA, JUDD Unavailable Unavailable LAURA [facility], Unavailable Unavailable [facility] Unavailable Unavailable INC, [facility] Unavailable Unavailable [facility]PITAL P, [facility] FELTON KOKI, FELTON KOKI Unavailable Unavailable BROWN III KISHA, Unavailable Unavailable BROWN III KISHA [facility] Unavailable Unavailable [facility], [facility] KILPELA, KILPELA Unavailable Unavailable KILPELA JEA, KILPELA Unavailable Unavailable JEA KURT JONES, Unavailable Unavailable ERNIETECORINNA JON[facility] Unavailable Unavailable [facility], [facility] Unavailable Unavailable [facility], [facility], Unavailable Unavailable [facility] MERHAR GAR, MERHAR Unavailable Unavailable GAR SELVIN JR COREY, SELVIN Unavailable Unavailable JR COREY NEELAM, NEELAM Unavailable Unavailable NEELAM SHAYY, NEELAM SHAYY Unavailable Unavailable OZOR, OZOR Unavailable Unavailable [facility], [facility]available [facility]available [facility], [facility] PAWLEY BAR, PAWLEY Unavailable Unavailable BAR PRETORIUS RITO, Unavailable Unavailable PRETORIUS RITO SAMEERA QUENTIN, SAMEERA QUENTIN Unavailable Unavailable RENUSCH PHILLIP, RENUSCH Unavailable Unavailable PHILLIP JAGRUTI, JAGRUTI Unavailable Unavailable SADEK MOH, SADEK MOH Unavailable Unavailable SCALF RITO, SCALF RITO Unavailable Unavailable LEVY JERILYN, LEVY Unavailable Unavailable JERILYN SOKAN BAB, SOKAN BAB Unavailable Unavailable [facility] Unavailable Un[facility], [facility] Unavailable Unavailable [facility], [facility] SOTINGEANU, Unavailable Unavailable SOTINGEANU SOTINGEANU MARCIA, Unavailable Unavailable SOTINGEANU MARCIA [facility] Un[facility], [facility] Unavailable Unavailable [facility]IAN SERV[facility], [facility] TOLU, TOLU Unavailable Unavailable [facility], Unavailable Unavailable [facility] WALKER FOR, WALKER Unavailable Unavailable FOR WELLS, WELLS Unavailable Unavailable [facility], [facility] Unavailable Unavailable SAM BRANDY, SAM BRANDY Unavailable Unavailable ROSAURA BRANDY, ROSAURA Unavailable Unavailable BRANDY FIDENCIO, FIDENCIO Unavailable Unavailable Purpose Continuity of Care Document - 10-01-2014 through 2016 Problems Code Diagnosis DOS Provider Status N3001 ACUTE 02-20-2017 Lynn HERRERA CYSTITIS PSC WITH HEMATURIA R109 UNSPECIFIED 02-20-2017 Lynn HERRERA ABDOMINAL PSC PAIN R300 DYSURIA 02-20-2017 Lynn HERRERA MD PSC N200 CALCULUS OF 01-26-2017 [facility] N3090 CYSTITIS 01-26-2017 [facility] WITHOUT PLLC HEMATURIA M5442 LUMBAGO 01-08-2017 [facility] WITH HOME [facility]ATICA MEDICAL LEFT SIDE EQUIPME [id number] STRAIN 01-08-2017 [facility] MUSCLE HOME FASCIA & MEDICAL TENDON LOW EQUIPME BACK INITIAL I10 ESSENTIAL 12-22-2016 [facility] HYPERTENSIO INC N M545 LOW BACK 12-22-2016 [place] [facility] Z720 TOBACCO USE 12-22-2016 [facility] INC N23 UNSPECIFIED 11-01-2016 [facility] COLIC PLL[facility] N3000 ACUTE 11-01-2016 [facility] CYSTITIS PH[facility], WITHOUT PLLC HEMATURIA R112 NAUSEA WITH 10-26-2016 [facility] UNSPECIFIED HOLDINGS K921 MELENA 10-25-2016 A Kaelyn HERRERA MD PSC X61900 UNSPECIFIED 10-25-2016 A Kaelyn HERRERA OVARIAN PSC CYST UNSPECIFIED SIDE F41.9 ANXIETY 10-23-2016 DISORDER, UNSPECIFIED F43.10 POST-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-2016 TIC STRESS DISORDER, UNSPECIFIED N39.0 URINARY 10-23-2016 TRACT INFECTION, SITE NOT SPECIFIED N83.209 UNSPECIFIED 10-23-2016 O[facility]IAN CYST, UNSPECIFIED SIDE R10.31 RIGHT LOWER 10-23-2016 [facility] PAIN R11.0 NAUSEA 10-23-2016 R19.7 DIARRHEA, 10-23-2016 UNSPECIFIED Z87.440 PERSONAL 10-23-2016 HISTORY OF URINARY (TRACT) INFECTIONS Z87.442 PERSONAL 10-23-2016 HISTORY OF URINARY CALCULI Z88.0 ALLERGY 10-23-2016 STATUS TO PENICILLIN Z88.1 ALLERGY 10-23-2016 STATUS TO OTHER ANTIBIOTIC AGENTS STATUS Z88.2 ALLERGY 10-23-2016 STATUS TO SULFONAMIDE S STATUS Z88.5 ALLERGY 10-23-2016 STATUS TO NARCOTIC AGENT STATUS Z88.8 ALLERGY 10-23-2016 STATUS TO OTHER DRUGS, MEDICAMENTS AND BIOLOGICAL SUBSTANCES STATUS N12 TUBULO-INTE 10-22-2016 A Kaelyn HERRERA RST PSC NEPHRITIS NOT SPEC ACUTE/CHRON N390 URINARY 10-22-2016 A Kaelyn HERRERA TRACT PSC INFECTION SITE NOT SPECIFIED P75192 UNSPECIFIED 10-22-2016 A Kaelyn HERRERA OVARIAN PSC CYST RIGHT SIDE R1031 RIGHT LOWER 10-22-2016 A Kaelyn HERRERA [facility] PAIN E785 HYPERLIPIDE 10-21-2016 [facility] UNSPECIFIED INC B24717 PERSONAL 10-21-2016 [facility] URINARY INC TRACT INFECTIONS A93029 PERSONAL 10-21-2016 [facility] URINARY INC CALCULI L50.9 URTICARIA, 09-18-2016 UNSPECIFIED N30.00 ACUTE 09-18-2016 CYSTITIS WITHOUT HEMATURIA R10.32 LEFT LOWER 09-18-2016 [facility] PAIN Z72.0 TOBACCO USE 09-18-2016 X05287 ELEVATED 09-18-2016 A Kaelyn HERRERA WHITE BLOOD MD PSC CELL COUNT UNSPECIFIED R197 DIARRHEA 09-18-2016 A Kaelyn HERRERA UNSPECIFIED PSC R32 UNSPECIFIED 09-18-2016 A Kaelyn HERRERA URINARY PSC INCONTINENC E R5383 OTHER 09-18-2016 A Kaelyn HERRERA FATIGUE [facility] R1012 LEFT UPPER 09-12-2016 [facility] PAIN INC L509 URTICARIA 09-09-2016 [facility] UNSPECIFIED N EMERGENCY PHYS R110 NAUSEA 09-08-2016 [facility] INC R21 RASH AND 09-08-2016 [facility] OTHER PHYSICIANS, NONSPECIFIC [facility] SKIN ERUPTION Z791 CRIMINAL INTELLIGENCE ANALYST 09-08-2016 [facility] CURR [facility] NON-STEROID INC AL&ANTI-INF LAMMATORIES Z32478 OTHER LONG 09-08-2016 [facility] TERM [facility] CURRENT INC DRUG THERAPY Z888 ALLERGY 09-08-2016 [facility] STATUS OTH [facility] RX MEDS & INC BIOLOG SUBSTANC STS M54.9 DORSALGIA, 08-20-2016 UNSPECIFIED R31.9 HEMATURIA, 08-20-2016 UNSPECIFIED R1032 LEFT LOWER 08-10-2016 [facility] B86 SCABIES 07-04-2016 [facility], [facility] R030 ELEVATED 06-03-2016 [facility] BLOOD-PRESS N EMERGENCY URE READING SERV WITHOUT DX HTN R0600 DYSPNEA 06-03-2016 [facility] R079 CHEST PAIN 06-03-2016 [facility] [place] [facility] R1013 EPIGASTRIC 06-03-2016 [facility] PAIN N EMERGENCY SERV J40 BRONCHITIS 03-12-2016 A Kaelyn HECK MD PSC SPECIFIED ACUTE OR CHRONIC R05 COUGH 03-12-2016 A Kaelyn HERRERA MD PSC E860 DEHYDRATION 02-22-2016 [facility] R1011 RIGHT UPPER 02-22-2016 [facility], PAIN PLL R1010 UPPER 02-21-2016 A Kaelyn HERRERA ABDOMINAL [facility]SC PAIN UNSPECIFIED R1110 VOMITING 02-21-2016 A Kaelyn HERRERA UNSPECIFIED PSC O10388 OTHER 02-14-2016 A Kaelyn HERRERA INSTABILITY PSC LEFT ANKLE R11924 PAIN IN 02-14-2016 A Kaelyn HERRERA LEFT KNEE [facility] A80620 PAIN IN 02-09-2016 A Kaelyn HERRERA RIGHT LEG [facility] Y52438 PAIN IN 02-09-2016 A Kaelyn HERRERA LEFT LEG P[facility] E74698 EFFUSION 02-07-2016 [facility] I52856 PAIN IN 02-07-2016 [facility] [place] LEFT [facility] M7989 OTHER 02-07-2016 [place] [place] SPECIFIED MEDICAL SOFT TISSUE IMAGING ASS DISORDERS G8929 OTHER 01-26-2016 A Kaelyn HERRERA CHRONIC [facility] PAIN N289 DISORDER OF 01-09-2016 [facility] UNSPECIFIED R000 TACHYCARDIA 01-09-2016 [facility] N209 URINARY 12-31-2015 [facility] CALCULUS [facility], UNSPECIFIED PLLC L16138 PAIN IN 11-10-2015 [place] RIGHT [facility] [id number] SPRAIN 11-10-2015 [facility] UNSPEC [facility]IANS, LIGAMENT PLLC RIGHT ANKLE INITIAL ENC R75509D UNSPECIFIED 11-10-2015 [place] INJURY MEDICAL RIGHT ANKLE IMAGING ASS INITIAL ENCOUNTER R319 HEMATURIA 10-07-2015 [facility], PLLC N8320 UNSPECIFIED 08-05-2015 [facility] OVARIAN N EMERGENCY CYSTS PHYS N8329 OTHER 08-05-2015 [facility] CYSTS R1030 LOWER 08-04-2015 [facility] ABDOMINAL PHYSICIANS, PAIN PLLC UNSPECIFIED M549 DORSALGIA 06-26-2015 [facility] UNSPECIFIED [facility]ICIANS, PLLC Z960 PRESENCE OF 06-16-2015 [facility]OGENITAL [facility] IMPLANTS HOSPITA N201 CALCULUS OF 05-20-2015 [facility]TER [facility], [facility] E669 OBESITY 05-17-2015 [facility] UNSPECIFIED N PHYSICIAN SERVI N132 HYDRONEPHRO 05-17-2015 [facility] SIS W/RENAL N PHYSICIAN & URETRL SERVI CALCULOUS OBST N1330 UNSPECIFIED 05-17-2015 [facility] HYDRONEPHRO SIS R6510 SYS INFLM 05-17-2015 [facility] RSPN SYND N PHYSICIAN NON-INF SERVI ORIG NO AC ORGN DYSF Z6841 BODY MASS 05-16-2015 [facility] INDEX BMI COMMUNTIY 40.0-44.9 HOSPITA ADULT J208 ACUTE 04-28-2015 [facility] BRONCHITIS PHYSICIANS, DUE TO PLLC OTHER SPEC ORGANISMS K859 ACUTE 04-05-2015 [facility] PANCREATITI N EMERGENCY S PHYS UNSPECIFIED R9431 ABNORMAL 04-05-2015 [facility] ELECTROCARD COMMUNTIY IOGRAM HOSPITA 5920 CALCULUS OF 02-26-2015 [facility] 5990 URINARY 02-26-2015 [facility] TRACT N EMERGENCY INFECTION PHYS SITE NOT SPECIFIED 43478 NAUSEA 02-26-2015 [facility] ALONE COMMUNTIY HOSPITA 18461 DIARRHEA 02-26-2015 [facility] ABDOMINAL 02-26-2015 [facility] PAIN RIGHT N EMERGENCY LOWER PHYS [facility] V1301 PERSONAL 02-26-2015 [facility] HISTORY OF COMMUNTI URINARY HOSPITA CALCULI V1582 PERS HX 02-26-2015 [facility] TOBACCO USE COMMUNTIY PRESENTING HOSPITA [facility] 4019 UNSPECIFIED 02-19-2015 [facility] HYPERTENSIO INC N 5275 SIALOLITHIA 02-19-2015 [facility] SIS PHYSICIANS, PLLC 6202 OTHER AND 02-14-2015 [facility] UNSPECIFIED PHYSICIANS, OVARIAN PLLC CYST 23043 ABDOMINAL 12-11-2014 [place] [facility] OTHER MEDICAL SPECIFIED IMAGING ASS SITE 02095 ABDOMINAL 12-10-2014 [facility] PAIN, LEFT [facility] LOWER INC QUAD[facility]ANT 0419 BACTERIAL 11-26-2014 [place] [facility] UNSPECIFIED FOUNDATION CCE & UNS SITE 87617 UNSPECIFIED 11-26-2014 [facility] PYELONEPHRI TIS V4579 OTHER 11-26-2014 [facility] ABSENCE OF ORGAN 95303 ABDOMINAL 11-21-2014 [facility] [place] PAIN, RADIOLOGY UNSPECIFIED SITE 24159 ABDOMINAL 11-20-2014 [facility] PAIN, N EMERGENCY PERIUMBILIC PHYS 49320 ABDOMINAL 11-16-2014 [place] [facility], MEDICAL EPIGASTRIC IMAGING ASS 33448 NAUSEA WITH 11-14-2014 [facility] VOMIT[facility] 5589 OTH&UNSPEC 10-31-2014 [facility] NONINFECTIO PHYSICIANS, US PLLC GASTROENTER ITIS&COLITI S 7242 LUMBAGO 10-19-2014 [facility] P 91097 ABDOMINAL 10-19-2014 [facility] PAIN, LEFT [facility] P QUADRANT 5921 CALCULUS OF 10-01-2014 [facility] 7295 PAIN IN 10-01-2014 [place] SOFT MEDICAL TISSUES OF IMAGING ASS LIMB 8449 SPRAIN&STRA 10-01-2014 [facility] IN OF MEM HOS[facility] UNSPECIFIED INC SITE OF KNEE&LEG 9597 INJURY 10-01-2014 [place] OTHER&UNSPE MEDICAL CIFIED KNEE IMAGING ASS LEG ANKLE&FOOT F17.290 Nicotine dependence, other tobacco product, uncomplicat ed N13.2 Hydronephro sis with renal and ureteral calculous obstruction N20.0 Calculus of kidney R10.9 Unspecified abdominal pain R30.0 Dysuria Z79.899 Other emt intermediate (current) drug therapy Z88.6 Allergy status to analgesic agent status Allergies, Adverse Reactions, Alerts Clinical Alert Notifications [...] te s n re d NI 16 09 10 14 7 00 EA Ac TR 71 -1 -[address] ti OF 40 3- 6- 00 00 SI ve UR 43 20 20 50 DE AN 90 17 17 13 TO 1 49 PH IN AR MA MO CY NO -M OF CR CY NT 10 HI 0 AN MG A IN C CE 65 09 10 20 10 00 EA Ac PH 86 -1 -[address] ti AL 20 3- 6- 00 00 SI ve EX 01 20 20 50 DE IN 90 17 17 14 5 12 PH 50 AR 0 MA MG CY CA OF PS CY UL NT E HI AN A IN C MA 65 09 10 24 6 00 EA Ac OM 16 -1 -[address] ti ET 20 3- 6- 00 00 SI ve CAN 52 20 20 50 DE ZI 11 17 17 14 NE 1 13 PH AR 25 MA CY MG OF TA CY BL NT ET HI AN A IN C PA 13 09 10 45 30 00 EA Ac RO 10 -1 -[address] ti XE 70 3- 6- 00 00 SI ve TI 15 20 20 49 DE NE 73 17 17 47 0 86 PH HC AR L MA 40 CY MG OF CY TA NT BL HI ET AN A IN C HY 16 09 10 30 [address] 72 -1 -[address] ti OC 90 3- 6- 00 00 SI ve HL 18 20 20 49 DE OR 31 17 17 47 OT 7 85 PH HI AR AZ MA ID CY E 25 OF CY MG NT HI TA AN B A IN C HY 00 09 10 [address] 40 -1 -[address] ti OC 60 3- 6- 00 00 SI ve OD 12 20 20 50 DE ON 30 17 17 14 -A 5 14 PH CE AR TA MA [place] CY NO PH OF EN CY NT 5- HI 32 AN 5 A IN C AM 16 08 09 30 10 00 EA Ac OX 71 -2 -[address] ti IC 40 0- 5- 00 00 SI ve IL 29 20 20 49 DE LI 90 17 17 85 N 4 62 PH 50 AR 0 MA MG CY CA OF PS CY UL NT E HI AN A IN C HY 00 08 09 [address] 40 -2 -[address] ti OC 60 1- 5- 00 00 SI ve OD 12 20 20 49 DE ON 30 17 17 85 -A 5 68 PH CE AR TA MA NJ CY NO PH OF EN CY NT 5- HI 32 AN 5 A IN C HY 16 07 08 30 [address] 72 -1 -[address] ti OC 90 8- 1- 00 00 SI ve HL 18 20 20 49 DE OR 31 17 17 47 OT 7 85 PH HI AR AZ MA ID CY E 25 OF CY MG NT HI TA AN B A IN C PA 13 07 08 45 30 00 EA Ac RO 10 -1 -[address] ti XE 70 8- - 00 00 SI ve TI 15 20 20 49 DE NE 73 17 17 47 0 86 PH HC AR L MA 40 CY MG OF CY TA NT BL HI ET AN A IN C NJ 00 07 08 30 30 00 EA Ac RT 09 -1 -[address] ti AZ 37 8- 1- 00 00 SI ve AP 20 20 20 49 DE IN 85 17 17 47 E 6 87 PH 45 AR MA MG CY TA OF BL CY ET NT HI AN A IN C TA 65 07 08 30 30 00 EA Ac MS 86 -1 -[address] ti UL 20 8- 1- 00 00 SI ve OS 59 20 20 49 DE IN 80 17 17 47 5 88 PH HC AR L MA 0. CY 4 MG OF CY CA NT PS HI UL AN E A IN C HY 00 07 08 [address] 40 -1 -[address] ti OC 60 8- 1- 00 00 SI ve OD 12 20 20 49 DE ON 30 17 17 47 -A 5 89 PH CE AR TA MA NJ CY NO PH OF EN CY NT 5- HI 32 AN 5 A IN C CI 16 05 06 20 10 00 EA Ac MA 71 -1 -[address] ti OF 40 8- 3- 00 00 SI ve LO 65 20 20 48 DE XA 20 17 17 80 CI 4 51 PH N AR HC MA L CY 50 0 OF MG CY NT TA HI B AN A IN C TA 65 05 06 30 30 00 EA Ac MS 86 -1 -[address] ti UL 20 8- 3- 00 00 SI ve OS 59 20 20 48 DE IN 80 17 17 80 5 52 PH HC AR L MA 0. CY 4 MG OF CY CA NT PS HI UL AN E A IN C HY 00 05 06 [address] 40 -2 -[address] ti OC 60 5- 3- 00 00 SI ve OD 12 20 20 48 DE ON 30 17 17 89 -A 5 33 PH CE AR TA MA NJ CY NO PH OF EN CY NT 5- HI 32 AN 5 A IN C NI 16 05 06 20 10 00 EA Ac TR 71 -2 -[address] ti OF 40 5- 3- 00 00 SI ve UR 43 20 20 48 DE AN 90 17 17 89 TO 1 31 PH IN AR MA MO CY NO -M OF CR CY NT 10 HI 0 AN MG A IN C AC 00 05 06 20 5 00 CL Ac ET 09 -1 -0 .0 00 IN ti AM 30 6- 9- 00 00 IC ve IN 15 20 20 43 OP 01 17 17 11 PH HE 0 96 AR N- MA CO CY D #3 TA BL ET DI 00 04 05 12 30 00 EA Ac CY 37 -1 -[address] ti CL 81 1- 5- 00 00 SI ve OM 61 20 20 0 48 DE IN 00 17 17 32 E 5 09 PH 10 AR MA MG CY CA OF PS CY UL NT E HI AN A IN C CY 00 04 04 60 15 00 EA Ac CL 37 -0 -[address] ti OB 80 4- 8- 00 00 SI ve EN 75 20 20 48 DE ZA 11 17 17 23 MA 0 48 PH IN AR E MA 10 CY MG OF CY TA NT BL HI ET AN A IN C MA 65 04 04 60 30 00 EA Ac OM 16 -0 -[address] ti ET 20 4- 8- 00 00 SI ve CAN 52 20 20 48 DE ZI 11 17 17 23 NE 1 79 PH AR 25 MA CY MG OF TA CY BL NT ET HI AN A IN C NI 16 04 04 10 5 00 EA Ac TR 71 -0 -[address] ti OF 40 2- 8- 00 00 SI ve UR 43 20 20 48 DE AN 90 17 17 21 TO 1 06 PH IN AR MA MO CY NO -M OF CR CY NT 10 HI 0 AN MG A IN C MA 59 04 04 10 5 00 EA Ac ED 74 -0 -[address] ti NI 60 3- 8- 00 00 SI ve SO 17 20 20 48 DE NE 50 17 17 23 6 18 PH 20 AR MA MG CY TA OF BL CY ET NT HI AN A IN C SM 49 [...] 12 01 14 7 00 EA Ac MA 71 -3 -[address] ti [...] 47 DE RA 30 16 17 07 NJ 5 45 PH DE AR MA 10 [...] NT ET HI AN A IN C Results Labs Lab Lab Date Result Refere Interp Status Commen Order Detail nces retati t Range on Urinalysis with microscopy (03-21-2017 00:24) Urine 10- CLEAR CLEAR complet appeara 017 CLEAR L ed nce 00:24 determi nation Urine NEGATIV NEG complet total 017 E ed bilirub 00:24 NEGATIV in E L detecti on by test Urine 03-21- 2+ 2+ L NEG complet blood 017 ed detecti 00:24 on Urine 03-21- YELLOW YELLOW complet color 017 YELLOW ed 00:24 L Glucose 03-21-2 = NEG complet ur 017 NEGATIV ed test 00:24 E strip Urine NEGATIV NEG complet ketones 017 E ed 00:24 NEGATIV detecti E L on by mg/dL automat ed paulo Mucus 3+ 3+ L NEG complet detecti 017 ed on in 00:24 urine sedimen t by lig Urine NEGATIV NEG complet nitrite 017 E ed 00:24 NEGATIV detecti E L on by test strip Urine 2 = 7.0 5.0-8.5 complet pH 017 ed 00:24 Urine 03-21-2 = NEG complet protein 017 NEGATIV ed 00:24 E mg/dL measure ment by automat ed t Urine 03-21-2 = 1.015 1.005-1 complet specifi 017 .030 ed c 00:24 gravity measure ment Urine 03-21-2 0.2 0.2 NEG complet urobili 017 L ed nogen 00:24 E.U./dL detecti on by test str Urinalysis dipstick W Reflex Microscopic panel in Urine (03-21-2017 00:24) Appeara 10--2 CLEAR CLEAR complet nce of 017 ed Urine 00:24 Bilirub 03-21-2 NEGATIV NEG complet in 017 E ed [Presen 00:24 ce] in Urine by Test strip Erythro 2+ NEG Abnorma complet cytes 017 l ed [Presen 00:24 ce] in Urine Color 03-21- YELLOW YELLOW complet of 017 ed Urine 00:24 Ketones 03-21-2 NEGATIV NEG complet 017 E ed [Presen 00:24 ce] in Urine by Automat ed test strip Mucus 3+ NEG Abnorma complet [Presen 017 l ed ce] in 00:24 Urine sedimen t by Light microsc opy Nitrite NEGATIV NEG complet 017 E ed [Presen 00:24 ce] in Urine by Test strip Urobili 0.2 NEG complet nogen 017 ed [Presen 00:24 ce] in Urine by Test strip Urinalysis dipstick W Reflex Microscopic panel in Urine (02-27-2017 15:00) Bacteri 2+ O complet a 017 ed [Presen 15:00 ce] in Urine sedimen t by Light microsc opy Erythro OCC 0 complet cytes 017 ed [Presen 15:00 ce] in Urine sedimen t by Light microsc opy Epithel 20-50 0#/hp complet ial 017 f - ed cells.s 15:00 5#/hp quamous f [Presen ce] in Urine sedimen t by Microsc opy high power field Leukocy 10-20 O complet paulo 017 wbc/hpf ed [#/volu 15:00 me] in Urine Urinalysis dipstick W Reflex Microscopic panel in Urine (02-27-2017 15:00) Appeara CLOUDY CLEAR complet nce of 017 ed Urine 15:00 Bilirub NEGATIV NEG complet in 017 E ed [Presen 15:00 ce] in Urine by Test strip Erythro 2+ NEG Abnorma complet cytes 017 l ed [Presen 15:00 ce] in Urine Color YELLOW YELLOW complet of 017 ed Urine 15:00 Ketones NEGATIV NEG complet 017 E ed [Presen 15:00 ce] in Urine by Automat ed test strip Mucus 2+ NEG Abnorma complet [Presen 017 l ed ce] in 15:00 Urine sedimen t by Light microsc opy Nitrite NEGATIV NEG complet 017 E ed [Presen 15:00 ce] in Urine by Test strip Urobili 0.2 NEG complet nogen 017 ed [Presen 15:00 ce] in Urine by Test strip Urinalysis dipstick W Reflex Microscopic panel in Urine (02-27-2017) Amorpho 1+ NONE complet us 017 ed sedimen t [Presen ce] in Urine sedimen t by Light microsc opy Bacteri 2+ O complet a 017 ed [Presen ce] in Urine sedimen t by Light microsc opy Calcium 1+ NONE complet 017 ed oxalate crystal s [Presen ce] in Urine sedimen t by Light microsc opy Erythro 10-20 0 complet cytes 017 ed [Presen ce] in Urine sedimen t by Light microsc opy Epithel 3-5 0#/hp complet ial 017 f - ed cells.s 5#/hp quamous f [Presen ce] in Urine sedimen t by Microsc opy high power field Leukocy 50-100 O complet paulo 017 wbc/hpf ed [#/volu me] in Urine Urinalysis dipstick W Reflex Microscopic panel in Urine (02-27-2017) [facility]ara CLOUDY CLEAR complet nce of 017 ed Urine Bilirub NEGATIV NEG complet in 017 E ed [Presen ce] in Urine by Test strip Erythro 3+ NEG Abnorma complet cytes 017 l ed [Presen ce] in Urine Color DK YELLOW complet of 017 YELLOW ed Urine Ketones NEGATIV NEG complet 017 E ed [Presen ce] in Urine by Automat ed test strip Mucus 3+ NEG Abnorma complet [Presen 017 l ed ce] in Urine sedimen t by Light microsc opy Nitrite NEGATIV NEG complet 017 E ed [Presen ce] in Urine by Test strip Urobili 0.2 NEG complet nogen 017 ed [Presen ce] in Urine by Test strip Urinalysis dipstick W Reflex Microscopic panel in Urine (02-19-2017 19:15) Bacteri 3+ O complet a 017 ed [Presen 19:15 ce] in Urine sedimen t by Light microsc opy Hyaline OCC NONE complet casts 017 ed [Presen 19:15 ce] in Urine sedimen t by Light microsc opy Erythro 3-5 0 complet cytes 017 ed [Presen 19:15 ce] in Urine sedimen t by Light microsc opy Epithel TNTC 0#/hp complet ial 017 f - ed cells.s 19:15 5#/hp quamous f [Presen ce] in Urine sedimen t by Microsc opy high power field Leukocy 20-50 O complet paulo 017 wbc/hpf ed [#/volu 19:15 me] in Urine Urinalysis dipstick W Reflex Microscopic panel in Urine (02-19-2017 19:15) Appeara SL CLEAR complet nce of 017 CLOUDY ed Urine 19:15 Bilirub NEGATIV NEG complet in 017 E ed [Presen 19:15 ce] in Urine by Test strip Erythro 1+ NEG Abnorma complet cytes 017 l ed [Presen 19:15 ce] in Urine Color YELLOW YELLOW complet of 017 ed Urine 19:15 Ketones NEGATIV NEG complet 017 E ed [Presen 19:15 ce] in Urine by Automat ed test strip Mucus 3+ NEG Abnorma complet [Presen 017 l ed ce] in 19:15 Urine sedimen t by Light microsc opy Nitrite NEGATIV NEG complet 017 E ed [Presen 19:15 ce] in Urine by Test strip Urobili 0.2 NEG complet nogen 017 ed [Presen 19:15 ce] in Urine by Test strip Urinalysis dipstick W Reflex Microscopic panel in Urine (01-26-2017 18:35) Erythro OCC 0 complet cytes 017 ed [Presen 18:35 ce] in Urine sedimen t by Light microsc opy Epithel 50-100 0#/hp complet ial 017 f - ed cells.s 18:35 5#/hp quamous f [Presen ce] in Urine sedimen t by Microsc opy high power field Leukocy 5-10 O complet paulo 017 wbc/hpf ed [#/volu 18:35 me] in Urine Urinalysis dipstick W Reflex Microscopic panel in Urine (01-26-2017 18:35) Appeara SL CLEAR complet nce of 017 CLOUDY ed Urine 18:35 Bilirub NEGATIV NEG complet in 017 E ed [Presen 18:35 ce] in Urine by Test strip Erythro TRACE-I NEG complet cytes 017 NTACT ed [Presen 18:35 ce] in Urine Color YELLOW YELLOW complet of 017 ed Urine 18:35 Ketones NEGATIV NEG complet 017 E ed [Presen 18:35 ce] in Urine by Automat ed test strip Mucus 1+ NEG Abnorma complet [Presen 017 l ed ce] in 18:35 Urine sedimen t by Light microsc opy Nitrite NEGATIV NEG complet 017 E ed [Presen 18:35 ce] in Urine by Test strip Urobili 0.2 NEG complet nogen 017 ed [Presen 18:35 ce] in Urine by Test strip Urinalysis dipstick W Reflex Microscopic panel in Urine (11-01-2016 15:55) Bacteri 2+ O complet a 017 ed [Presen 15:55 ce] in Urine sedimen t by Light microsc opy Mucus OCC OCC complet [Presen 017 ed ce] in 15:55 Urine sedimen t by Light microsc opy Epithel 10-20 0#/hp complet ial 017 f - ed cells.s 15:55 5#/hp quamous f [Presen ce] in Urine sedimen t by Microsc opy high power field Leukocy 5-10 O complet paulo 017 wbc/hpf ed [#/volu 15:55 me] in Urine Urinalysis dipstick W Reflex Microscopic panel in Urine (11-01-2016 15:55) Appeara SL CLEAR complet nce of 017 CLOUDY ed Urine 15:55 Bilirub NEGATIV NEG complet in 017 E ed [Presen 15:55 ce] in Urine by Test strip Erythro NEGATIV NEG complet cytes 017 E ed [Presen 15:55 ce] in Urine Color YELLOW YELLOW complet of 017 ed Urine 15:55 Ketones NEGATIV NEG complet 017 E ed [Presen 15:55 ce] in Urine by Automat ed test strip Mucus TRACE NEG Abnorma complet [Presen 017 l ed ce] in 15:55 Urine sedimen t by Light microsc opy Nitrite NEGATIV NEG complet 017 E ed [Presen 15:55 ce] in Urine by Test strip Urobili 0.2 NEG complet nogen 017 ed [Presen 15:55 ce] in Urine by Test strip Procedures Procedure DOS Code Location Performer Comment URINLS 47118 A C KILPELA DIP 7 JAVIER ROMAN STICK/TAB PSC LET REAGNT NON-AUTO MICRSCPY RADEX 44111 [facility] ABDOMEN 1 7 MEDICAL IMAGING ANTEROPOS ASS TERIOR VIEW LUMB L0627 ANNELIESE ANNELIESE ORTHOSIS 7 HOME HOME SAGIT MEDICAL MEDICAL CNTRL EQUIPME EQUIPME RIGID A&P PANEL PREFAB UNCLASSIF J3490 DIANNA BUSTAMANTE IED DRUGS 7 [facility] INC INC URINE 37504 DIANNA BUSTAMANTE 7 [facility] TEST INC INC VISUAL COLOR CMPRSN METHS RADEX 65282 DIANNA BUSTAMANTE SPINE 7 [facility] LUMBOSACR INC INC AL MINIMUM 4 VIEWS CULTURE 61666 LAB JANNA LAB JANNA BACTERIAL 7 ROSY ROSY HOLDINGS HOLDINGS QUANTTATI VE COLONY COUNT URINE URINLS 72807 A C KILPELA DIP 7 JAVIER ROMAN STICK/TAB PSC LET REAGNT NON-AUTO MICRSCPY OBSERVATI 87922 A C NEELAM ON CARE 7 JAVIER ROMAN DISCHARGE PSC MANAGEMEN T UNCLASSIF J3490 DIANNA BUSTAMANTE IED DRUGS 7 [facility] INC INC BLOOD 94504 DIANNA BUSTAMANTE COUNT 7 [facility] COMPLETE INC INC AUTO&AUTO DIFRNTL WBC BLOOD 46517 DIANNA BUSTAMANTE COUNT 7 [facility] COMPLETE INC INC AUTO&AUTO DIFRNTL WBC UNCLASSIF J3490 DIANNA BUSTAMANTE IED DRUGS 7 [facility] INC INC INITIAL 60967 Lynn RICHTER OBSERVATI 7 JAVIER ROMAN ON PSC CARE/DAY 70 MINUTES BASIC 95845 DIANNA BUSTAMANTE METABOLIC 7 [facility] PANEL INC [facility] G0378 DIANNA [facility]USTAM[facility] OBSERVATI 7 [facility] ON INC [facility] DIANNA BUSTAMANTE OBSERVATI 7 [facility] [place] [address] DIANNA BUSTAMANTE INFUSION 7 [facility] THERAPY/P INC INC ROPHYLAXI S /DX 1ST TO 1 HR THERAPEUT 30625 DIANNA BUSTAMANTE IC 7 [facility] INJECTION INC INC IV PUSH EACH NEW DRUG COMPREHEN 47824 DIANNA BUSTAMANTE SIVE 7 [facility] METABOLIC INC INC PANEL CULTURE 73718 DIANNA BUSTAMANTE BACTERIAL 7 [facility] INC INC QUANTTATI VE COLONY COUNT URINE UNCLASSIF J3490 DIANNA BUSTAMANTE IED DRUGS 7 [facility] INC INC URNLS DIP 54644 DIANNA BUSTAMANTE 7 [facility] STICK/TAB INC INC LET REAGENT AUTO MICROSCOP Y BLOOD 16615 DIANNA BUSTAMANTE COUNT 7 [facility] COMPLETE INC INC AUTO&AUTO DIFRNTL WBC GROUND A0425 [facility] 7 AMBULANCE AMBULANCE PER SERVICE SERVICE STATUTE MILE AMBULANCE A0429 [facility] SERVICE 7 AMBULANCE AMBULANCE BLS [place] [address] [facility]TRL JOCY MOTLEY ABDOMEN & 7 RADIOLOGY PELVIS W/[place] [address] ROBERTA CONNORS ABDOMEN & 7 MEDICAL PELVIS IMAGING W/O ASS CONTRAST MATERIAL URINLS 01449 Lynn RICK DIP 7 JAVIER ROMAN STICK/TAB [facility] LET REAGNT NON-AUTO MICRSCPY UNCLASSIF J3490 DIANNA BUSTAMANTE IED DRUGS 7 [facility] INC INC URINLS 39235 A Kaelyn RICK DIP 7 JAVIER ROMAN STICK/TAB PSC LET REAGNT NON-AUTO MICRSCPY BLOOD 55147 A C MERLINE COUNT 7 JAVIER ROMAN COMPLETE PSC AUTO&AUTO DIFRNTL WBC COLLECTIO 99734 A Kaelyn MERLINE N VENOUS 7 JAVIER [place] [address] [facility] [place] [facility] ABDOMEN & 7 RADIOLOGY PELVIS W/O CONTRAST MATERIAL URNLS DIP 13465 DIANNA BUSTAMANTE 7 [facility] STICK/TAB INC INC LET REAGENT AUTO MICROSCOP Y UNCLASSIF J3490 DIANNA BUSTAMANTE IED DRUGS 7 [facility] INC INC CULTURE 15730 DIANNA BUSTAMANTE BACTERIAL 7 [facility] INC [place] [address] [facility] ABDOMEN & 7 MEDICAL PELVIS IMAGING W/O ASS CONTRAST MATERIAL URNLS DIP 92470 [facility] 6 N N STICK/TAB COMMUNTIY COMMUNTIY LET HOSPITA HOSPITA REAGENT AUTO MICROSCOP Y CULTURE 61194 [facility] BACTERIAL 6 N N COMMUNTIY COMMUNTIY QUANTTATI HOSPITA HOSPITA VE COLONY COUNT URINE THERAPEUT 91954 [facility] IC 6 N N PROPHYLAC COMMUNTIY COMMUNTIY TIC/DX HOSPITA HOSPITA INJECTION SUBQ/IM RADIOLOGI 09181 [facility] [place] FIDENCIO C 6 RADIOLOGY EXAMINATI ON CHEST SINGLE VIEW FRONTAL ECG 09760 [facility] ROUTINE 6 SAMANTHA ECG EMERGENCY W/LEAST SERV 12 LDS I&R ONLY URNLS DIP 99529 DIANNA BUSTAMANTE 6 [facility] STICK/TAB INC INC LET REAGENT AUTO MICROSCOP Y UNCLASSIF J3490 DIANNA BUSTAMANTE IED DRUGS 6 [facility] INC INC URINE 85762 DIANNA BUSTAMANTE 6 [facility] TEST INC INC VISUAL COLOR CMPRSN METHS CULTURE 82064 DIANNA BUSTAMANTE BACTERIAL 6 [facility] INC [place] [address] CNTR[facility] JOCY DASILVA ABDOMEN & 6 RADIOLOGY III KISHA PELVIS W/O CONTRAST MATERIAL OBSERVATI 15766 A Kaelyn RICHTER SHAYY ON/INPATI 6 JAVIER ROMAN ENT [facility] HOSPITAL CARE [address] [place] [address] ROBERTA GARZA ABDOMEN & 6 MEDICAL [place] PELVIS IMAGING W/O ASS CONTRST 1/> BODY RE THERAPEUT 56137 A Kaelyn RICK IC 6 JAVIER [facility]I PROPHYLAC PSC TIC/DX INJECTION SUBQ/IM INJECTION J2550 A Kaelyn RICK 6 JAVIER [facility] PROMETHAZ PSC INE HCL UP TO 50 MG URINLS 24315 A C MERLINE DIP 6 JAVIER CHI STICK/TAB PSC [place] [address] DIANNA BUSTAMANTE LIPASE 6 [facility] INC INC BLOOD 14580 DIANNA BUSTAMANTE COUNT 6 [facility] COMPLETE INC INC AUTO&AUTO DIFRNTL WBC COMPREHEN 28253 DIANNA BUSTAMANTE SIVE 6 [facility] [place] [address] DIANNA BUSTAMANTE AMYLASE 6 MEM [facility] INC INC COLLECTIO 63983 DIANNA BUSTAMANTE N VENOUS 6 [facility] BLOOD INC INC VENIPUNCT URE URINLS 98001 A C MERLINE DIP 6 JAVIER CHI STICK/TAB PSC LET REAGNT NON-[place] [address] DIANNA BUSTAMANTE JT LOWER 6 [facility] EXTREM INC INC [place] [address] DIANNA BUSTAMANTE RETROPERI 6 [facility] TONEAL INC INC REAL [place] [address] [facility] ALL RETROPERI 6 MEDICAL TONEAL IMAGING REAL TIME ASS W/IMAGE LIMITED THERAPEUT 13618 A Kaelyn RICK IC 6 JAVIER CHI PROPHYLAC PSC TIC/DX INJECTION SUBQ/IM BLOOD 57760 A C MERLINE COUNT 6 JAVIER [facility]I COMPLETE PSC AUTO&AUTO DIFRNTL WBC INJECTION J0696 A Kaelyn RICK 6 JAVIER CHI CEFTRIAXO PSC NE SODIUM PER 250 MG URINLS 38529 A C MERLINE DIP 6 JAVIER CHI STICK/TAB PSC LET REAGNT NON-AUTO MICRSCPY URINLS 26092 A C MERLINE DIP 6 JAVIER CHI STICK/TAB PSC LET REAGNT NON-AUTO MICRSCPY BLOOD 73857 A C MERLINE COUNT 6 JAVIER CHI COMPLETE PSC AUTO&AUTO DIFRNTL WBC INJECTION J0696 A C MERLINE 6 JAVIER CHI CEFTRIAXO PSC NE SODIUM PER 250 MG THERAPEUT 37858 A C MERLINE IC 6 JAVIER CHI PROPHYLAC PSC TIC/DX INJECTION SUBQ/IM CULTURE 78558 LAB JANNA LAB JANNA BACTERIAL 6 ROSY [employer] QUANTTATI VE COLONY COUNT URINE CUL BACT 58372 LAB JANNA LAB JANNA AEROBIC 6 ROSY ROSY ADDL HOLDINGS HOLDINGS METHS DEFINITIV E EA ISOL CULTURE 46337 LAB JANNA LAB JANNA BCT 6 ROSY ROSY ISOL&PRSM HOLDINGS HOLDINGS PTV ID ISOLATE EA URINE SUSCEPTIB 12548 LAB JANNA LAB JANNA LTY STDY 6 ROSY ROSY ANTIMICRB HOLDINGS HOLDINGS IAL MICRO/AGA R DILUTJ THERAPEUT 38470 A C MERLINE IC 6 JAVIER CHI PROPHYLAC PSC TIC/DX INJECTION SUBQ/IM INJECTION J2550 A C A C 6 JAVIER HERRERA MD PROMETHAZ PSC PSC INE HCL UP TO 50 MG INJECTION J0696 A C MERLINE 6 JAVIER CHI CEFTRIAXO PSC NE SODIUM PER 250 MG URINLS 86459 A C MERLINE DIP 6 JAVIER CHI STICK/TAB [place] [address] [place] CONNORS ALL ABDOMEN & 6 MEDICAL PELVIS IMAGING W/O ASS CONTRAST MATERIAL RADIOLOGI 80232 [place] KAYLA C 6 MEDICAL [place] EXAMINATI IMAGING ON ANKLE ASS 2 VIEWS URINLS 76285 A C KILPELA DIP 6 JAVIER LOGAN STICK/TAB PSC LET REAGNT NON-AUTO MICRSCPY RADEX 34520 [place] CONNORS ALL SPINE 6 MEDICAL LUMBOSACR IMAGING AL 2/3 ASS VIEWS RADEX 01418 DIANNA BUSTAMANTE SPINE 6 [facility] LUMBOSACR INC INC AL MINIMUM 4 VIEWS RADEX 97778 DIANNA BUSTAMANTE ANKLE 6 [facility] COMPLETE INC INC MINIMUM 3 VIEWS RADEX 22186 [place] MERHAR ANKLE 6 MEDICAL GAR COMPLETE SERV MINIMUM 3 FOUNDATIO VIEWS N RADEX 64479 [place] MER[place] FOOT 6 MEDICAL GAR COMPLETE SERV MINIMUM [address] [place] [address] [place] J[place] ABDOMEN & 6 RADIOLOGY PELVIS W/O CONTRAST MATERIAL URINLS 07469 A C RICK DIP 6 JAVIER ROMAN ARTI STICK/TAB [place] [address] [place] RETROPERI 6 MEDICAL BAR TONEAL SERV REAL TIME FOUNDATIO W/[place] [address] [place] SCALF RITO ABDOMEN & 6 RADIOLOGY PELVIS W/O CONTRAST MATERIAL THERAPEUT 06282 DIANNA BUSTAMANTE IC 6 [facility] INJECTION INC INC IV PUSH EACH NEW DRUG COLLECTIO 39165 DIANNA BUSTAMANTE N VENOUS 6 [facility] BLOOD INC INC VENIPUNCT URE THER 42152 DIANNA BUSTAMANTE PROPH/DX 6 [facility] NJX IV INC INC PUSH SINGLE/1S T SBST/DRUG COMPREHEN 13765 DIANNA BUSTAMANTE SIVE 6 [facility] METABOLIC INC INC PANEL CULTURE 93314 DIANNA BUSTAMANTE BACTERIAL 6 [facility] INC INC QUANTTATI VE COLONY COUNT URINE UNCLASSIF J3490 DIANNA BUSTAMANTE IED DRUGS 6 [facility] INC INC URNLS DIP 49623 DIANNA BUSTAMANTE 6 [facility] STICK/TAB INC [place] [address] DIANNA BUSTAMANTE ABDOMEN & 6 [facility] PELVIS INC INC W/O CONTRAST MATERIAL BLOOD 29542 DIANNA BUSTAMANTE COUNT 6 [facility] COMPLETE INC INC AUTO&[place] [address] ROBERTA GARZA ABDOMEN & 6 MEDICAL [place] PELVIS IMAGING W/O ASS CONTRAST MATERIAL RADIOLOGI 28366 ROBERTA CONNORS ALL C 6 MEDICAL EXAMINATI IMAGING ON [place] [address] [place] [address] ROBERTA YOUNG ABDOMEN & 6 MEDICAL MARCIA PELVIS [place] [address] [place] YULI ABDOMEN & 6 RADIOLOGY RHO PELVIS W/[place] [address] [place] FU ABDOMEN & 6 RADIOLOGY CAR PELVIS W/O CONTRAST MATERIAL THERAPEUT 97079 DIANNA BUSTAMANTE IC 6 [facility] PROPHYLAC INC INC TIC/DX INJECTION SUBQ/IM BASIC 52635 IDANNA BUSTAMANTE METABOLIC 6 [facility] PANEL INC INC CALCIUM TOTAL COLLECTIO 82691 DIANNA BUSTAMANTE N VENOUS 6 [facility] BLOOD INC INC VENIPUNCT URE BLOOD 38706 DIANNA BUSTAMANTE COUNT 6 [facility] COMPLETE INC INC AUTO&AUTO DIFRNTL WBC UNCLASSIF J3490 DIANNA BUSTAMANTE IED DRUGS 6 [facility] INC INC URINE 47084 [facility] 6 N N TEST COMMUNTIY COMMUNTIY VISUAL HOSPITA HOSPITA COLOR CMPRSN METHS URNLS DIP 57990 [facility] 6 N N STICK/TAB COMMUNTIY COMMUNTIY LET HOSPITA HOSPITA REAGENT AUTO MICROSCOP Y BLOOD 81705 [facility] COUNT 6 N N COMPLETE COMMUNTIY COMMUNTIY AUTO&[place] [address] [facility] INFUSION 6 N N THERAPY/P COMMUNTIY COMMUNTIY ROPHYLAXI HOSPITA HOSPITA S /DX 1ST TO 1 HR THERAPEUT 98530 [facility] IC 6 N N INJECTION COMMUNTIY COMMUNTIY IV PUSH HOSPITA HOSPITA EACH NEW DRUG COLLECTIO 44845 [facility] N VENOUS 6 N N BLOOD COMMUNTIY COMMUNTIY VENIPUNCT HOSPITA HOSPITA URE CUL BACT 03562 [facility] AEROBIC 6 N N ADDL COMMUNTIY COMMUNTIY METHS HOSPITA HOSPITA DEFINITIV E EA ISOL CULTURE 61165 [facility] BACTERIAL 6 N N COMMUNTIY COMMUNTIY QUANTTATI [place]OSP[place] [address] [facility] ABDOMEN & 6 N N PELVIS COMMUNTIY COMMUNTIY W/O HOSPITA HOSPITA CONTRAST MATERIAL COMPREHEN 83941 [facility] SIVE 6 N N METABOLIC COMMUNTIY COMMUNTIY PANEL HOSPITA HOSPITA SUSCEPTIB 28885 [facility] LTY STDY 6 N N ANTIMICRB COMMUNTIY COMMUNTIY IAL HOSPITA HOSPITA MICRO/[place] [address] [facility] INFUSION 6 N N HYDRATION COMMUNTIY COMMUNTIY EACH [place] [address] [facility] INFUSION 6 N N THER COMMUNTIY COMMUNTIY PROPH HOSPITA HOSPITA ADDL SEQUENTIA L TO 1 [place] [address] [facility] INFUSION 5 N N HYDRATION COMMUNTIY COMMUNTIY EACH HOSPITA HOSPITA ADDITIONA L HOUR INJECTION J2550 [facility] 5 N N PROMETHAZ COMMUNTIY COMMUNTIY INE HCL HOSPITA HOSPITA UP TO 50 MG CULTURE 80882 [facility] BACTERIAL 5 N N COMMUNTIY COMMUNTIY QUANTTATI HOSPITA HOSPITA VE COLONY COUNT URINE COMPREHEN 96692 [facility] SIVE 5 N N METABOLIC COMMUNTIY [place] [address] [facility] INFUSION 5 N N THERAPY/P COMMUNTIY COMMUNTIY ROPHYLAXI HOSPITA HOSPITA S /DX 1ST TO 1 HR THER 75709 [facility] PROPH/DX 5 N N NJX EA COMMUNTIY COMMUNTIY SEQL IV HOSPITA HOSPITA PUSH SBST/DRUG FAC COLLECTIO 61239 [facility] N VENOUS 5 N N BLOOD COMMUNTIY COMMUNTIY VENIPUNCT HOSPITA HOSPITA URE THERAPEUT 70105 [facility] IC 5 N N INJECTION COMMUNTIY COMMUNTIY IV PUSH HOSPITA HOSPITA EACH NEW DRUG INJECTION J2270 [facility] MORPHINE 5 N N SULFATE COMMUNTIY COMMUNTIY UP TO 10 HOSPITA HOSPITA MG BLOOD 56380 [facility] COUNT 5 N N COMPLETE COMMUNTIY COMMUNTIY AUTO&AUTO HOSPITA HOSPITA DIFRNTL WBC URNLS DIP 04986 [facility] 5 N N STICK/TAB COMMUNTIY COMMUNTIY LET HOSPITA HOSPITA [place] [address] [facility] LIPASE 5 N N COMMUNTIY COMMUNTIY HOSPITA HOSPITA RADEX 97096 DIANNA BUSTAMANTE ABDOMEN 1 5 [facility] INC INC ANTEROPOS TERIOR VIEW INJECTION J2001 [facility] 5 N N LIDOCAINE COMMUNTIY COMMUNTIY HCL HOSPITA HOSPITA INTRAVENO US INFUS 10 MG INJECTION J1100 [facility] 5 N N DEXAMETHO COMMUNTIY COMMUNTIY SONE HOSPITA HOSPITA SODIUM PHOSPHATE 1 MG INJECTION J1170 [facility] 5 N N HYDROMORP COMMUNTIY COMMUNTIY RON UP HOSPITA HOSPITA TO 4 MG BLOOD 91999 [facility] COUNT 5 N N HEMOGLOBI COMMUNTIY COMMUNTIY N HOSPITA HOSPITA INJECTION J2704 [facility] PROPOFOL 5 N N 10 MG COMMUNTIY COMMUNTIY HOSPITA HOSPITA OBSERVATI 58200 [facility] ON CARE 5 SAMANTHA A GOP DISCHARGE PHYSICIAN SERVI MANAGEMEN T COLLECTIO 72597 [facility] N VENOUS 5 N N BLOOD COMMUNTIY COMMUNTIY VENIPUNCT HOSPITA HOSPITA URE BLOOD 85412 [facility] COUNT 5 N N HEMATOCRI COMMUNTIY COMMUNTIY T HOSPITA HOSPITA BASIC 53446 [facility] METABOLIC 5 N N PANEL COMMUNTIY COMMUNTIY CALCIUM HOSPITA HOSPITA TOTAL THER 81893 [facility] PROPH/DX 5 N N NJX EA COMMUNTIY COMMUNTIY SEQL IV HOSPITA HOSPITA PUSH SBST/DRUG FAC INJECTION J2550 [facility] 5 N N PROMETHAZ COMMUNTIY COMMUNTIY INE HCL HOSPITA HOSPITA UP TO 50 MG INJ J2543 [facility] PIPERACIL 5 N N MEGHAN COMMUNTIY COMMUNTIY SOD/TAZOB HOSPITA HOSPITA ACTAM SOD 1 G/0.125 G PROTHROMB 31900 [facility] IN TIME 5 N N COMMUNTIY COMMUNTIY HOSPITA HOSPITA CYSTO 60832 [facility] W/URETERO 5 N N SCOPY COMMUNTIY COMMUNTIY W/RMVL/MA HOSPITA HOSPITA NJ STONES DILATION 39381 [facility] VASQUEZ NEPHROSTO 5 ALPESH ALPESH MY/URETER /URETHRA RS&I INJ J2543 [facility] PIPERACIL 5 N N MEGHAN COMMUNTIY COMMUNTIY SOD/TAZOB HOSPITA HOSPITA ACTAM SOD 1 G/0.125 G SBSQ 93236 [facility] OBSERVATI 5 SAMANTHA A GOP ON PHYSICIAN CARE/DAY SERVI 35 MINUTES INJECTION J2550 [facility] 5 N N PROMETHAZ COMMUNTIY COMMUNTIY INE HCL HOSPITA HOSPITA UP TO 50 MG COMPREHEN 75332 [facility] SIVE 5 N N METABOLIC COMMUNTIY COMMUNTIY PANEL HOSPITA HOSPITA GUIDE C1769 [facility] WIRE 5 N N COMMUNTIY COMMUNTIY HOSPITA HOSPITA STENT C2617 [facility] NON-COR 5 N N TEMPORARY COMMUNTIY COMMUNTIY WITHOUT HOSPITA HOSPITA DELIVERY SYSTEM CYSTO 44144 [facility] W/INSERT 5 N N URETERAL COMMUNTIY COMMUNTIY STENT HOSPITA HOSPITA THER 99421 [facility] PROPH/DX 5 N N NJX EA COMMUNTIY COMMUNTIY SEQL IV HOSPITA HOSPITA PUSH SBST/[place] [address] [facility] ABDOMEN & 5 N N PELVIS COMMUNTIY COMMUNTIY W/O HOSPITA HOSPITA CONTRAST MATERIAL CULTURE 80154 [facility] BACTERIAL 5 N N COMMUNTIY COMMUNTIY QUANTTATI HOSPITA HOSPITA VE COLONY COUNT URINE COLLECTIO 32262 [facility] N VENOUS 5 N N BLOOD COMMUNTIY COMMUNTIY VENIPUNCT HOSPITA HOSPITA URE ANES 43107 [place] LEV[place] TRUR 5 ANESTHESI JERILYN FRAGMNTJ A GROUP MANJ&/RMV PS L URETERAL CALCULUS URINE 57615 [facility] 5 N N TEST COMMUNTIY COMMUNTIY VISUAL HOSPITA HOSPITA COLOR CMPRSN METHS INFUSION J7030 [facility] NORMAL 5 N N SALINE COMMUNTIY COMMUNTIY SOLUTION HOSPITA HOSPITA 1000 CC URNLS DIP 63816 [facility] 5 N N STICK/TAB COMMUNTIY COMMUNTIY LET HOSPITA HOSPITA REAGENT AUTO MICROSCOP Y CALCULUS 18241 [facility] QUANTITAT 5 N N DEVYN COMMUNTIY COMMUNTIY CHEMICAL HOSPITA HOSPITA BLOOD 49627 [facility] COUNT 5 N N COMPLETE COMMUNTIY COMMUNTIY AUTO&AUTO HOSPITA HOSPITA DIFRNTL WBC INJECTION J0696 [facility] 5 N N CEFTRIAXO COMMUNTIY COMMUNTIY NE SODIUM HOSPITA HOSPITA PER 250 MG TOBACCO 29761 [facility] USE 5 N N CESSATION COMMUNTIY COMMUNTIY HOSPITA HOSPITA INTERMEDI ATE 3-10 MINUTES INJECTION J1170 [facility] 5 N N HYDROMORP COMMUNTIY COMMUNTIY RON [place]OS[place] 4 [place] [address] [facility] INFUSION 5 N N THERAPY/P COMMUNTIY COMMUNTIY ROPHYLAXI HOSPITA HOSPITA S /DX 1ST TO 1 HR RINGERS J7120 [facility] LACTATE 5 N N INFUSION COMMUNTIY COMMUNTIY UP TO HOSPITA HOSPITA 1000 CC INJECTION J1170 [facility] 5 N N HYDROMORP COMMUNTIY COMMUNTIY RON UP HOSPITA HOSPITA TO 4 MG INJECTION J2270 [facility] MORPHINE 5 N N SULFATE COMMUNTIY COMMUNTIY UP TO 10 HOSPITA HOSPITA MG BLOOD 75405 [facility] COUNT 5 N N COMPLETE COMMUNTIY COMMUNTIY AUTO&AUTO HOSPITA HOSPITA DIFRNTL WBC URNLS DIP 64669 [facility] 5 N N STICK/TAB COMMUNTIY COMMUNTIY LET HOSPITA HOSPITA REAGENT AUTO MICROSCOP Y INFUSION J7030 [facility] NORMAL 5 N N SALINE COMMUNTIY COMMUNTIY SOLUTION HOSPITA HOSPITA 1000 CC INTRODUCT 64987 [facility] ION 5 SAMANTHA JERILYN NEEDLE/IN EMERGENCY TRACATHET PHYS ER VEIN THERAPEUT 52519 [facility] IC 5 N N INJECTION COMMUNTIY COMMUNTIY IV PUSH HOSPITA HOSPITA EACH NEW DRUG COLLECTIO 41982 [facility] N VENOUS 5 N N BLOOD COMMUNTIY COMMUNTIY VENIPUNCT HOSPITA HOSPITA URE INITIAL 41786 [facility] OBSERVATI 5 SAMANTHA A GOP ON PHYSICIAN CARE/DAY SERVI 70 MINUTES CULTURE 14564 [facility] BACTERIAL 5 N N COMMUNTIY COMMUNTIY QUANTTATI HOSPITA HOSPITA VE COLONY COUNT URINE THROMBOPL 71872 [facility] ASTIN 5 N N TIME COMMUNTIY COMMUNTIY PARTIAL HOSPITA HOSPITA PLASMA/WH OLE BLOOD THER 22932 [facility] PROPH/DX 5 N N NJX EA COMMUNTIY COMMUNTIY SEQL IV HOSPITA HOSPITA PUSH SBST/[place] [address] [facility] & 5 [facility] PELVIS IMAGING W/O ASS CONTRAST MATERIAL CULTURE 98102 [facility] BACTERIAL 5 N N BLOOD COMMUNTIY COMMUNTIY AEROBIC HOSPITA HOSPITA W/ID [facility] [id number] [facility] OBSERVATI 5 N N ON COMMUNTIY COMMUNTIY SERVICE HOSPITA HOSPITA PER HOUR COMPREHEN [id number] [facility] SIVE 5 N N METABOLIC COMMUNTIY COMMUNTIY PANEL HOSPITA HOSPITA INJECTION [id number] [facility] 5 N N PROMETHAZ COMMUNTIY COMMUNTIY INE HCL HOSPITA HOSPITA UP TO 50 MG INJ J2543 [facility] PIPERACIL 5 N N MEGHAN COMMUNTIY COMMUNTIY SOD/TAZOB HOSPITA HOSPITA ACTAM SOD 1 G/0.125 G THERAPEUT 90535 [facility] IC 5 N N PROPHYLAC COMMUNTIY COMMUNTIY TIC/DX HOSPITA HOSPITA INJECTION SUBQ/IM CULTURE 56815 [facility] BACTERIAL 5 MEM HOS[facility] INC INC QUANTTATI VE COLONY COUNT URINE URINE 85780 [facility] 5 [facility] TEST INC INC VISUAL COLOR CMPRSN METHS URNLS DIP 77485 [facility] 5 [facility] STICK/TAB INC INC LET REAGENT AUTO MICROSCOP Y UNCLASSIF J3490 [facility] IED DRUGS 5 [facility] INC INC URNLS DIP 75131 [facility] 5 N N STICK/TAB COMMUNTIY COMMUNTIY LET HOSPITA HOSPITA REAGENT AUTO MICROSCOP Y INFUSION J7030 [facility] NORMAL 5 N N SALINE COMMUNTIY COMMUNTIY SOLUTION HOSPITA [place]PITA [address] [place] [address] [facility] LIPASE 5 N N COMMUNTIY COMMUNTIY HOSPITA HOSPITA BLOOD 27051 [facility] COUNT 5 N N SMEAR COMMUNTIY COMMUNTIY MCRSCP HOSPITA HOSPITA W/MNL DIFRNTL WBC COUNT URINE 05881 [facility] 5 N N TEST COMMUNTIY COMMUNTIY VISUAL HOSPITA HOSPITA COLOR CMPRSN METHS BLOOD 39112 [facility] COUNT 5 N N COMPLETE COMMUNTIY COMMUNTIY AUTOMATED HOSPITA HOSPITA INJECTION J2270 [facility] MORPHINE 5 N N SULFATE COMMUNTIY COMMUNTIY UP TO 10 HOSPITA HOSPITA MG ECG 68149 [facility] CELLAROSI ROUTINE 5 SAMANTHA - YORBA ECG EMERGENCY PAT W/LEAST PHYS 12 LDS I&R ONLY CULTURE 55012 [facility] BACTERIAL 5 N N COMMUNTIY COMMUNTIY QUANTTATI HOSPITA HOSPITA VE COLONY COUNT URINE COMPREHEN 00053 [facility] SIVE 5 N N METABOLIC COMMUNTIY COMMUNTIY PANEL HOSPITA HOSPITA INJECTION J2550 [facility] 5 N N PROMETHAZ COMMUNTIY COMMUNTIY INE HCL HOSPITA HOSPITA [place] 50 [place] [address] [facility] INFUSION 5 N N HYDRATION COMMUNTIY COMMUNTIY EACH HOSPITA HOSPITA ADDITIONA L HOUR ECG 32018 [facility] ROUTINE 5 N N ECG COMMUNTIY COMMUNTIY W/LEAST HOSPITA HOSPITA 12 LDS TRCG ONLY W/O [place] [address] [facility] INFUSION 5 N N THERAPY/P COMMUNTIY COMMUNTIY ROPHYLAXI HOSPITA HOSPITA S /DX 1ST TO 1 HR COLLECTIO 42936 [facility] N VENOUS 5 N N BLOOD COMMUNTIY COMMUNTIY VENIPUNCT HOSPITA HOSPITA URE THERAPEUT 40081 [facility] IC 5 N N INJECTION COMMUNTIY COMMUNTIY IV PUSH HOSPITA HOSPITA EACH NEW DRUG COLLECTIO [id number] [facility] N VENOUS 5 N N BLOOD COMMUNTIY COMM[place] [address] [place] JUDD ABDOMEN & 5 RADIOLOGY LAURA [place]EL[place] W/[place] [address] [facility] INFUSION 5 N N HYDRATION COMMUNTIY COMMUNTIY EACH HOSPITA HOSPITA ADDITIONA L HOUR THER 67299 [facility] PROPH/DX 5 N N NJX IV COMMUNTIY COMMUNTIY PUSH HOSPITA HOSPITA SINGLE/1S T SBST/DRUG CULTURE 66701 [facility] BACTERIAL 5 N N COMMUNTIY COMMUNTIY QUANTTATI HOSPITA HOSPITA VE COLONY COUNT URINE COMPREHEN 77324 [facility] SIVE 5 N N METABOLIC COMMUNTIY COMMUNTIY PANEL HOSPITA HOSPITA INJECTION J2270 [facility] MORPHINE 5 N N SULFATE COMMUNTIY COMMUNTIY UP TO 10 HOSPITA HOSPITA MG BLOOD 17475 [facility] COUNT 5 N N COMPLETE COMMUNTIY COMMUNTIY AUTO&AUTO HOSPITA HOSPITA DIFRNTL WBC URNLS DIP 11141 [facility] 5 N N STICK/TAB COMMUNTIY COMMUNTIY LET HOSPITA HOSPITA REAGENT AUTO MICROSCOP Y URINE 96268 [facility] 5 N N TEST COMMUNTIY COMMUNTIY VISUAL HOSPITA [place] [address] [facility] LIPASE 5 N N COMMUNTIY COMMUNTIY HOSPITA HOSPITA INFUSION J7030 [facility] NORMAL 5 N N SALINE COMMUNTIY COMMUNTIY SOLUTION HOSPITA HOSPITA 1000 CC UNCLASSIF J3490 DIANNA BUSTAMANTE IED DRUGS 5 [place] [address] DIANNA PALACIOSON LIPASE 5 [facility] INC INC BLOOD 49351 DIANNA PALACIOSON COUNT 5 [facility] COMPLETE INC INC AUTO&[place] [address] [place] KAYLA ABDOMEN & 5 MEDICAL WOLFGANG PELVIS IMAGING W/O ASS CONTRAST MATERIAL COMPREHEN 50946 DIANNA BUSTAMANTE SIVE 5 [facility] [place] [address] DIANNA PALACIOSON AMYLASE 5 [facility] INC INC CULTURE 61495 DIANNA BUSTAMANTE BACTERIAL 5 [facility] INC INC QUANTTATI VE COLONY COUNT URINE URNLS DIP 65880 DIANNA PALACIOSON 5 [facility] STICK/TAB INC INC LET REAGENT AUTO MICROSCOP Y URINE 68893 DIANNA BUSTAMANTE 5 [facility] TEST INC INC [place] [address] DIANNA BUSTAMANTE LIPASE 5 [facility] INC INC UNCLASSIF J3490 DIANNA BUSTAMANTE IED DRUGS 5 [facility] INC INC BLOOD 63485 DIANNA BUSTAMANTE COUNT 5 [facility] COMPLETE INC INC AUTO&AUTO DIFRNTL WBC COMPREHEN 19376 DIANNA BUSTAMANTE SIVE 5 [facility] METABOLIC INC INC PANEL COLLECTIO 93749 DIANNA BUSTAMANTE N VENOUS 5 [facility] BLOOD INC INC VENIPUNCT URE URNLS DIP 98921 DIANNA BUSTAMANTE 5 [facility] HOSP STICK/TAB INC INC LET REAGENT AUTO MICROSCOP Y URINE 46447 DIANNA BUSTAMANTE 5 [facility] HOSP TEST INC [place] [address] [facility] ABDOMEN & 5 MEDICAL WOLFGANG PELVIS IMAGING W/O ASS CONTRAST MATERIAL URINE 36364 DIANNA BUSTAMANTE 5 [facility] TEST INC INC VISUAL COLOR CMPRSN [place]HS URNLS DIP 07803 DIANNA BUSTAMANTE 5 [facility] STICK/TAB INC INC LET REAGENT AUTO MICROSCOP Y INJECTION J2270 [facility] MORPHINE 5 Y Y SULFATE [facility] UP TO 10 MG INJECTION J1956 [facility] 5 Y Y LEVOFLOXA [facility] LETY 250 MG INJECTION J1200 [facility] 5 Y Y DIPHENHYD [facility] RAMINE HCL UP TO 50 MG URINE 08865 [facility] 5 Y Y TEST HOSPITAL HOSPITAL VISUAL COLOR CMPRSN [place] INFUSION J7030 [facility] NORMAL 5 Y Y SALINE [facility]ITAL HOSPITAL SOLUTION [address] [place] [address] [facility] LIPASE 5 Y Y HOSPITAL HOSPITAL INJECTION J2270 [facility] MORPHINE 5 Y Y SULFATE [facility] UP TO 10 MG URNLS DIP 69385 [facility] 5 Y Y STICK/TAB [facility] LET REAGENT AUTO MICROSCOP Y BLOOD 88655 [facility] COUNT 5 Y Y COMPLETE [facility] [place] [place] [address] [facility] INFUSION 5 Y Y THERAPY/P [facility] ROPHYLA[facility] S /DX 1ST TO 1 HR THER 15388 [facility] PROPH/DX 5 Y Y NJX EA [facility] SEQL IV PUSH SBST/DRUG FAC THERAPEUT 22449 [facility] IC 5 Y Y INJECTION [facility] IV PUSH EACH NEW DRUG COMPREHEN 39844 [facility] SIVE 5 Y Y METABOLIC [facility] PANEL INJECTION J2765 [facility] 5 Y Y [facility] [place] [address] [place] [address] [place] KOSTELIC ABDOMEN & 5 RADIOLOGY ROBERT PELVIS W/O CONTRAST MATERIAL THROMBOPL 06256 DIANNA BUSTAMANTE ASTIN 5 [facility] TIME INC INC PARTIAL PLASMA/WH OLE BLOOD THERAPEUT 97068 DIANNA BUSTAMANTE IC 5 [facility] INJECTION INC [place] [address] DIANNA BUSTAMANTE AMYLASE 5 [facility] INC INC PROTHROMB 06129 DIANNA BUSTAMANTE IN TIME 5 [facility] INC INC COMPREHEN 48320 DIANNA BUSTAMANTE SIVE 5 [facility] HOS[facility] METABOLIC INC INC PANEL CULTURE 75771 DIANNA BUSTAMANTE BACTERIAL 5 [facility]OS[facility] INC INC QUANTTATI VE COLONY COUNT URINE BLOOD 90829 DIANNA BUSTAMANTE COUNT 5 [facility] COMPLETE INC INC AUTO&[place] [address] DIANNA BUSTAMANTE INFUSION 5 [facility] THERAPY/P INC INC ROPHYLAXI S /DX [address]ST [place] [address] [place] [address] DIANNA BUSTAMANTE ABDOMEN & 5 [facility] PELVIS INC INC W/O CONTRAST MATERIAL URNLS DIP 93733 DIANNA BUSTAMANTE 5 [facility] STICK/TAB INC INC [place] [address] DIANNA BUSTAMANTE LIPASE 5 [facility] INC INC UNCLASSIF J3490 DIANNA BUSTAMANTE IED DRUGS 5 [facility]OS[facility] INC INC URINE 85302 [facility] 5 N N TEST COMMUNTIY COMMUNTIY VISUAL HOSPITA [place] [address] [facility] LIPASE 5 N N COMMUNTIY COMMUNTIY HOSPITA HOSPITA URNLS DIP 40125 [facility] 5 N N STICK/TAB COMMUNTIY COMMUNTIY LET HOSPITA HOSPITA REAGENT AUTO MICROSCOP Y INJECTION J2270 [facility] MORPHINE 5 N N SULFATE COMMUNTIY COMMUNTIY UP [place] [address] [place] [address] [facility] ABDOMEN & 5 N N PELVIS COMMUNTIY COMMUNTIY W/CONTRAS HOSPITA HOSPITA T MATERIAL BLOOD 04099 [facility] COUNT 5 N N COMPLETE COMMUNTIY COMMUNTIY AUTO&AUTO HOSPITA HOSPITA DIFRNTL WBC LOCM Q9967 [facility] [phone] N N MG/ML COMMUNTIY COMMUNTIY IODINE HOSPITA HOSPITA CONCENTRA TION PER ML COMPREHEN 53990 [facility] SIVE 5 N N METABOLIC COMMUNTIY COMMUNTIY PANEL HOSPITA HOSPITA CULTURE 69088 [facility] BACTERIAL 5 N N COMMUNTIY COMMUNTIY QUANTTATI HOSPITA HOSPITA VE COLONY COUNT URINE INJECTION J2550 [facility] 5 N N PROMETHAZ COMMUNTIY COMMUNTIY INE HCL HOSPITA HOSPITA UP TO [address] [place] [address] [facility] AMYLASE 5 N N COMMUNTIY COMMUNTIY HOSPITA HOSPITA THERAPEUT 11844 [facility] IC 5 N N INJECTION COMMUNTIY COMMUNTIY IV PUSH HOSP[place] [address] DIANNA PALACIOSON AMYLASE 5 MEM [facility]OS[facility] INC INC COMPREHEN 89054 DIANNA BUSTAMANTE SIVE 5 [facility] METABOLIC INC INC PANEL CULTURE 61007 DIANNA BUSTAMANTE BACTERIAL 5 [facility] INC INC QUANTTATI VE COLONY COUNT URINE BLOOD 68478 DIANNA BUSTAMANTE COUNT 5 [facility] COMPLETE INC INC AUTO&AUTO DIFRNTL WBC URNLS DIP 97985 DIANNA BUSTAMANTE 5 [facility] STICK/TAB INC INC [place] [address] DIANNA BUSTAMANTE LIPASE 5 [facility] INC INC UNCLASSIF J3490 DIANNA BUSTAMANTE IED DRUGS 5 [facility] INC INC URINE 75388 DIANNA BUSTAMANTE 5 [facility] TEST INC INC VISUAL COLOR CMPRSN [place] URINE 66960 DIANNAEDITH BUSTAMANTE 5 [facility] TEST INC INC VISUAL COLOR CMPRSN METHS UNCLASSIF J3490 DIANNA DIANNA IED DRUGS 5 [facility] INC INC URNLS DIP 70656 DIANNA BUSTAMANTE 5 [facility] STICK/TAB INC [place] [address] [place] SAM BRANDY ABDOMEN & 5 MEDICAL PELVIS IMAGING W/O ASS CONTRAST MATERIAL UNCLASSIF J3490 DIANNA BUSTAMANTE IED DRUGS 5 [facility] INC INC THER 29604 DIANNA BUSTAMANTE PROPH/DX 5 [facility] NJX IV INC INC PUSH SINGLE/1S T SBST/DRUG THERAPEUT 78824 DIANNA BUSTAMANTE IC 5 [facility] INJECTION [place] [address] [place] ABDOMEN & 5 MEDICAL [place] PELVIS IMAGING W/O ASS CONTRAST MATERIAL RADIOLOGI 17400 [place] C 5 MEDICAL [place] EXAMINATI IMAGING ON TIBIA ASS & FIBULA 2 VIEWS Encounters Encounter Start End Date Code Location Performer Type Date OFFICE 61165 Lynn MOSS 7 7 JAVIER ROMAN T VISIT PSC 15 MINUTES EMERGENCY 39757 LÁZARO DEAN DEPT 7 7 PHYSICIAN JR VISIT [facility] HIGH SEVERITY& THREAT [facility] DIANNA Viveros 7 [facility] OUTPATIEN INC T EMERGENCY 52353 LÁZARO Viveros 7 PHYSICIAN JAMEELMEN [facility] T VISIT MODERATE SEVERITY EMERGENCY 85075 DIANNA 7 7 [facility] DEPARTMEN INC T VISIT LOW/MODER SEVERITY EMERGENCY 75932 LÁZARO DEAN 7 7 PHYSICIAN [facility] T VISIT HIGH/URGE NT SEVERITY OFFICE 09654 A Kaelyn MOSS 7 7 JAVIER ROMAN T VISIT PSC 25 MINUTES EMERGENCY 62496 DIANNA DEPT 7 7 [facility] VISIT INC HIGH SEVERITY& THREAT [facility] H[facility] DIANNA - 7 7 [facility] OUTPATIEN INC EMERGENCY 43273 DANNY STEWART DEPT 7 7 SAMANTHA VISIT EMERGENCY HIGH PHYS SEVERITY& THREAT FUN EMERGENCY 00844 LÁZARO WALTON DEPT 7 7 PHYSICIAN U VISIT [facility] HIGH SEVERITY& THREAT [facility] OFFICE 76393 A Kaelyn BUCHANANPATIDAVIDA 7 7 JAVIER ROMAN T VISIT PSC 15 MINUTES OFFICE 16105 DIANNA MOSS 7 7 [facility] T VISIT 5 INC MINUTES HOSPITAL DIANNA - 7 7 [facility] OUTPATIEN INC T OFFICE 58039 A Kaelyn RICK OUTPATIDAVIDA 7 7 JAVIER ROMAN T VISIT PSC 15 MINUTES EMERGENCY 83582 [facility] MARIEL 7 7 SAMANTHA [facility] EMERGENCY T VISIT PHYS HIGH/URGE NT SEVERITY HOSPITAL DIANNA - 7 7 [facility] OUTPATIEN INC T EMERGENCY 30706 DIANNA 7 7 [facility] DEPARTMEN INC T VISIT LOW/MODER SEVERITY EMERGENCY 69542 LÁZARO PATE 7 7 PHYSICIAN [facility] T VISIT HIGH/URGE NT SEVERITY EMERGENCY 75353 DANNY CHAND 7 7 SAMANTHA DEPARTMEN EMERGENCY T VISIT PHYS HIGH/URGE NT SEVERITY EMERGENCY 58210 LÁZARO WALTON DEPT 7 7 PHYSICIAN U VISIT S, [facility] HIGH SEVERITY& THREAT FUNJ EMERGENCY 31086 LÁZARO PATE 7 7 PHYSICIAN DEPARTMEN S, [facility] T VISIT HIGH/URGE NT SEVERITY HOSPITAL [facility] - 6 6 N OUTPATIEN COMMUNTIY T HOSPITA EMERGENCY 40492 [facility] 6 6 SAMANTHA DEPARTMEN EMERGENCY T VISIT PHYS HIGH/URGE NT SEVERITY EMERGENCY 43214 [facility] 6 6 N DEPARTMEN COMMUNTIY T VISIT HOSPITA MODERATE SEVERITY EMERGENCY 68025 [facility] DEPT 6 6 SAMANTHA VISIT EMERGENCY HIGH SERV SEVERITY& THREAT [facility] DIANNA - 6 6 [facility] OUTPATIEN INC T EMERGENCY 10076 DIANNA 6 6 [facility] V[facility]IT LIMITED/M INOR PROB EMERGENCY 40011 LÁZARO WALTON 6 6 PHYSICIAN U [facility] S, [facility] T VISIT HIGH/URGE NT SEVERITY EMERGENCY 91501 [facility] AZ[facility] DEPT 6 6 SAMANTHA SCO VISIT EMERGENCY HIGH PHYS SEVERITY& THREAT [facility] OFFICE 62514 A Kaelyn LUCAS OUTPATIDAVIDA 6 6 JAVIER ROMAN T VISIT PSC 15 MINUTES EMERGENCY 61634 LÁZARO WALTON DEPT 6 6 PHYSICIAN U MARCIA [facility]ISIT [facility], [facility] HIGH SEVER[facility]& TH[facility]AT [facility] 47251 A Kaelyn RICK OUTPATIEN 6 6 JAVIER [facility] T VISIT PSC 15 MINUTES OFFICE 19526 A Kaelyn MOSS 6 6 JAVIER [facility] T VISIT PSC 15 MINUTES HOSPITAL DIANNA - 6 6 [facility] OUTPATIEN INC T OFFICE 96706 A Kaelyn RICK OUTSANTIAGO 6 6 JAVIER [facility]I T VISIT PSC 15 MINUTES OFFICE 05463 A C CONNIE OUTPATIEN 6 6 JAVIER LOGAN T VISIT PSC 15 MINUTES OFFICE 25835 A C MERLINE OUTPATIEN 6 6 JAVIER CHI T VISIT PSC 15 MINUTES HOSPITAL DIANNA - 6 6 [facility] OUT[facility] T OFFICE 39882 A C MERLINE OUTPATIEN 6 6 JAVIER CHI T VISIT PSC 15 MINUTES OFFICE 34445 A C MERLINE OUTPATIEN 6 6 JAVIER CHI T VISIT PSC 15 MINUTES OFFICE 45669 A C MERLINE OUTPATIEN 6 6 JAVIER CHI T VISIT PSC 15 MINUTES EMERGENCY 13116 LÁZARO PATE 6 6 PHYSICIAN [facility] S, [facility] T VISIT HIGH/URGE NT SEVERITY HOSPITAL DIANNA - 6 6 [facility] OUT[facility]IEN [facility] HOSPITAL DIANNA - 6 6 [facility] OUT[facility]EN [facility] T OFFICE 84416 A C LUCIPELA OUTPATIEN 6 6 JAVIER LOGAN T VISIT PSC 25 MINUTES OFFICE 42100 A C MRELINE OUTPATIEN 6 6 JAVIER CHI T VISIT PSC 15 MINUTES EMERGENCY 33023 [facility] FAUSTINO JAM 6 6 SAMANTHA DEPARTMEN EMERGENCY T VISIT PHYS HIGH/URGE NT SEVERITY EMERGENCY 94782 JOCY SAAVEDRA 6 6 MEDICAL DEPARTMEN SERV T VISIT FOUNDATIO MODERATE N SEVERITY OFFICE 76773 A C MERLINE OUTPATIEN 6 6 JAVIER CHI T NEW 30 PSC MINUTES EMERGENCY 46627 JOCY TAM 6 6 MEDICAL MAT DEPARTMEN SERV T VISIT FOUNDATIO HIGH/URGE N NT SEVERITY EMERGENCY 30391 [facility] SON BAB 6 6 SAMANTHA DEPARTMEN EMERGENCY T VISIT PHYS HIGH/URGE NT SEVERITY HOSPITAL DIANNA - 6 6 [facility] OUTPATIEN INC T EMERGENCY 03779 LÁZARO PATE DEPT 6 6 PHYSICIAN LYNDA VISIT S, [facility] HIGH SEVERITY& THREAT FUNCJ EMERGENCY 01290 DIANNA 6 6 [facility] DEPARTMEN INC T VISIT HIGH/URGE NT SEVERITY EMERGENCY 97068 LÁZARO WALTON 6 6 PHYSICIAN U [facility] S, [facility] T VISIT MODERATE SEVERITY EMERGENCY 36814 [facility] ROSALES SCO 6 6 SAMANTHA [facility] EMERGENCY T VISIT SERV HIGH/URGE NT SEVERITY EMERGENCY 19374 LÁZARO PATE 6 6 [facility], [facility] T VISIT HIGH/URGE NT SEVERITY EMERGENCY 35190 LÁZARO WALTON 6 6 PHYSICIAN U [facility] S, [facility] T VISIT MODERATE SEVERITY EMERGENCY 98946 LÁZARO PATE 6 6 [facility]IC[facility], [facility] T VISIT HIGH/URGE NT SEVERITY EMERGENCY 59929 LÁZARO HOWELL 6 6 PHYSICIAN [facility] S, [facility] T VISIT HIGH/URGE NT SEVERITY EMERGENCY 36545 [facility] ISABELAOLD [address] [facility] EMERGENCY T VISIT PHYS HIGH/URGE NT SEVERITY EMERGENCY 86322 LÁZARO CHACON DEPT 6 6 PHYSICIAN FOR VISIT S, [facility] HIGH SEVERITY& THREAT FUNCJ EMERGENCY 74765 LÁZARO PATE 6 6 PHYSICIAN [facility], [facility] T VISIT HIGH/URGE NT SEVERITY EMERGENCY 29253 [facility] ROSAURA 6 6 [facility] EMERGENCY T VISIT PHYS HIGH/URGE NT SEVERITY EMERGENCY 29127 DIANNA 6 6 [facility] DEPARTMEN INC T VISIT MODERATE SEVERITY HOSPITAL DIANNA - 6 6 [facility] OUTPATIEN INC T EMERGENCY 88319 LÁZARO LYNNE 6 6 [facility] T VISIT HIGH/URGE NT SEVERITY EMERGENCY 79474 [facility] DEPT 6 6 SAMANTHA MON VISIT EMERGENCY HIGH PHYS SEVERITY& THREAT FUN EMERGENCY 97946 [facility] 6 6 N DEPARTMEN COMMUNTIY T VISIT HOSPITA HIGH/URGE NT SEVERITY HOSPITAL [facility] - 6 6 N OUTPATIEN COMMUNTIY T HOSPITA HOSPITAL [facility] - 5 5 N OUTPATIEN COMMUNTIY T HOSPITA EMERGENCY 91246 [facility] DEPT 5 5 SAMANTHA VISIT EMERGENCY HIGH SERV SEVERITY& THREAT FUN EMERGENCY 21258 [facility] 5 5 N DEPARTMEN COMMUNTIY T VISIT HOSPITA HIGH/URGE NT SEVERITY EMERGENCY 78449 LÁZARO PATE DEPT 5 5 PHYSICIAN LYNDA VISIT S, PLLC HIGH SEVERITY& THREAT [facility] HOSPITAL DIANNA - 5 5 [facility] OUTPATIEN INC T EMERGENCY 75924 DIANNA 5 5 [facility] DEPARTMEN INC T VISIT LOW/MODER SEVERITY HOSPITAL [facility] - 5 5 N OUTPATIEN COMMUNTIY T HOSPITA EMERGENCY 97294 [facility] DEPT 5 5 SAMANTHA JERILYN VISIT EMERGENCY HIGH PHYS SEVERITY& THREAT [facility] EMERGENCY 22701 LÁZARO OROZCO 5 5 PHYSICIAN BUTTS DEPARTMEN S, PLLC T VISIT MODERATE SEVERITY HOSPITAL DIANNA - 5 5 [facility] OUTPATIEN INC T EMERGENCY 05429 LÁZARO PATE 5 5 PHYSICIAN LYNDA DEPARTMEN S, PLLC T VISIT HIGH/URGE NT SEVERITY EMERGENCY 63815 DIANNA 5 5 [facility] DEPARTMEN INC T VISIT LOW/MODER SEVERITY EMERGENCY 82163 DIANNA 5 5 [facility] DEPARTMEN INC T VISIT LOW/MODER SEVERITY HOSPITAL DIANNA - 5 5 [facility] OUTPATIEN INC T EMERGENCY 75283 LÁZARO WALTON 5 5 PHYSICIAN U MARCIA DEPARTMEN S, [facility] T VISIT MODERATE SEVERITY EMERGENCY 80686 [facility] DE[facility] 5 5 SAMANTHA - YORBA VISIT EMERGENCY PAT HIGH PHYS SEVERITY& THREAT [facility] - 5 5 N OUTPATIEN COMMUNTIY T HOSPITA EMERGENCY 56640 [facility] 5 5 N DEPARTMEN COMMUNTIY T VISIT HOSPITA HIGH/URGE NT SEVERITY EMERGENCY 89764 [facility] DEPT 5 5 SAMANTHA JERILYN VISIT EMERGENCY HIGH PHYS SEVERITY& THREAT [facility] - 5 5 N OUTPATIEN COMMUNTIY T HOSPITA EMERGENCY 94228 [facility] 5 5 N DEPARTMEN COMMUNTIY T VISIT HOSPITA HIGH/URGE NT SEVERITY EMERGENCY 75382 DIANNA 5 5 [facility] DEPARTMEN INC T VISIT LIMITED/M INOR PROB HOSPITAL DIANNA - 5 5 [facility] OUTPATIEN INC T EMERGENCY 41929 LÁZARO TELLES 5 5 PHYSICIAN DEPARTMEN S, [facility] T VISIT MODERATE SEVERITY EMERGENCY 26922 DIANNA 5 5 [facility] DEPARTMEN INC T VISIT LOW/MODER SEVERITY EMERGENCY 54953 LÁZARO PATE DEPT 5 5 PHYSICIAN LYNDA VISIT S, PLLC HIGH SEVERITY& THREAT [facility] DIANNA - 5 5 [facility] OUTPATIEN INC T EMERGENCY 62827 DIANNA 5 5 [facility] DEPARTMEN INC T VISIT MODERATE SEVERITY HOSPITAL DIANNA - 5 5 [facility] OUTPATIEN INC T EMERGENCY 56146 LÁZARO OLVERA 5 5 PHYSICIAN DEPARTMEN S, PLLC T VISIT HIGH/URGE NT SEVERITY EMERGENCY 04776 LÁZARO PATE 5 5 PHYSICIAN LYNDA DEPARTMEN S, [facility] T VISIT HIGH/URGE NT SEVERITY HOSPITAL DIANNA - 5 5 [facility] OUTPATIEN INC T EMERGENCY 61856 DIANNA 5 5 [facility] DEPARTMEN INC T VISIT LOW/MODER SEVERITY [facility] 28729 JOCY DAVIDSON 5 5 MEDICAL SHANNON DEPARTMEN SERV T VISIT FOUNDATIO HIGH/URGE N NT SEVERITY EMERGENCY [id number] [facility] 5 5 SAMANTH[facility] PET DEPARTMEN EMERGENCY T VISIT PHYS HIGH/URGE NT SEVERITY EMERGENCY 49995 DIANNA 5 5 [facility] DEPARTMEN INC T VISIT HIGH/URGE NT SEVERITY EMERGENCY 87921 LÁZARO WAL[facility] DEPT 5 5 PHYSICIAN U MARCIA VISIT S, [facility] HIGH SEVERITY& THREAT [facility] DIANNA - 5 5 [facility]IEN [facility] EMERGENCY 96647 [facility] 5 5 N [facility] COMMUNTIY T VISIT HOSPITA HIGH/URGE NT SEVERITY HOSPITAL TAMMIE - 5 5 N OUTPATIEN COMMUNTIY T HOSPITA EMERGENCY 29867 [facility] [place] DEPT 5 5 SAM[facility]A [place] VISIT EMERGENCY HIGH PHYS SEVERITY& THREAT [facility] DIANNA - 5 5 [facility] OUTPATIEN [facility] T EMERGENCY 43756 LÁZARO PATE 5 5 PHYSICIAN LYNDA DEPARTMEN S, [facility] T VISIT HIGH/URGE NT SEVERITY EMERGENCY 53992 DIANNA 5 5 [facility] DEPARTMEN INC T VISIT LOW/MODER SEVERITY HOSPITAL DIANNA - 5 5 [facility] INC T EMERGENCY 92364 DIANNA PATE 5 5 [facility] T VISIT P MODERATE SEVERITY EMERGENCY 55292 DIANNA 5 5 [facility] T VISIT LOW/MODER SEVERITY HOSPITAL DIANNA Chinchilla 5 5 [facility] 75173 DIANNA ARBOLEDA 5 5 [facility] T VISIT P LOW/MODER SEVERITY EMERGENCY 21058 DIANNA 5 5 [facility] T VISIT HIGH/URGE NT SEVERITY EMERGENCY 63211 DIANNA 5 5 [facility] T VISIT LOW/MODER SEVERITY EMERGENCY 79135 DIANNA DEAN, 5 5 [facility] T VISIT P MODERATE SEVERITY HOSPITAL DIANNA Chinchilla 5 5 [facility] T
--- OUTSIDE RECORDS SUMMARY | 2017-03-23 15:37 | External Medical Summary Rpt | CCD ---
Author Author , ROBERTO MEJIA Address Unknown Phone [email or web address] Team Providers Care Sales Performance Manager Name Role Phone A Kaelyn HERRERA MD PSC, Lynn Unavailable Unavailable Kaelyn HERRERA MD PSC DAVIDSON SHANNON, DAVIDSON Unavailable Unavailable SHANNON ARNJOHNNA KAEL, ARNOLD Unavailable Unavailable KAEL SOSA MAY, SOSA MAY Unavailable Unavailable BEINEKE MARCIA, BEINEKE Unavailable Unavailable MARCIA FAUSTINO JAM, FAUSTINO JAM Unavailable Unavailable CONNORS, CONNORS Unavailable Unavailable CONNORS ALL, CONNORS ALL Unavailable Unavailable ILANA MON, Unavailable Unavailable ILANA MON [facility] Unavailable Unavailable SERVICE, [facility] HARRINGTON, HARRINGTON Unavailable Unavailable HARRINGTON [...] Unavailable Unavailable ARTI GEILE, GEILE Unavailable Unavailable [facility] Unavailable Unavailable [facility], [facility] YULI RHO, YULI Unavailable Unavailable RHO [facility] GOP, Unavailable Unavailable [facility] JUDD LAURA, JUDD Unavailable Unavailable LAURA DIANNA SCO, Unavailable Unavailable DIANNA SCO [facility] Unavailable Unavailable INC, [facility] Unavailable Unavailable HOSPITAL P, [facility] FELTON KOKI, FELTON KOKI Unavailable Unavailable BROWN III KISHA, Unavailable Unavailable BROWN III KISHA [facility] Unavailable Unavailable [facility], [facility] KILPELA, KILPELA Unavailable Unavailable [...] [facility], [facility] Unavailable Unavailable PHYSICIAN SERVI, [facility] TOLU, TOLU Unavailable Unavailable [facility], Unavailable Unavailable [facility] WALKER FOR, WALKER Unavailable Unavailable FOR [...] HERRERA MD PSC N200 CALCULUS OF 01-26-2017 [place] [facility] N3090 CYSTITIS 01-26-2017 [facility] UNSPECIFIED PHYSICIANS, WITHOUT PLLC HEMATURIA M5442 LUMBAGO 01-08-2017 ANN[facility] WITH HOME SCIATICA MEDICAL LEFT SIDE EQUIPME [id number] STRAIN 01-08-2017 [facility] MUSCLE HOME FASCIA & MEDICAL TENDON LOW EQUIPME BACK INITIAL I10 ESSENTIAL 12-22-2016 [facility] HYPERTENSIO INC N M545 LOW BACK 12-22-2016 [place] [facility]IN [facility] Z720 TOBACCO USE 12-22-2016 [facility] N23 UNSPECIFIED 11-01-2016 [facility] RENAL PHYSICIANS, COLIC PLLC N3000 ACUTE 11-01-2016 [facility] CYSTITIS PHYSICIANS, WITHOUT PLLC HEMATURIA R112 NAUSEA WITH 10-26-2016 [facility] VOMITING ROSY UNSPECIFIED HOLDINGS K921 MELENA 10-25-2016 A Kaelyn HERRERA MD PSC W09773 UNSPECIFIED 10-25-2016 A Kaelyn HERRERA OVARIAN PSC [...] HERRERA TRACT PSC INFECTION SITE NOT SPECIFIED C13873 UNSPECIFIED 10-22-2016 A Kaelyn HERRERA OVARIAN PSC CYST RIGHT SIDE R1031 RIGHT LOWER 10-22-2016 A Kaelyn HERRERA [facility] PSC PAIN E785 HYPERLIPIDE 10-21-2016 [facility] UNSPECIFIED INC S15860 PERSONAL 10-21-2016 [facility] URINARY INC TRACT INFECTIONS N66404 PERSONAL 10-21-2016 [facility] URINARY INC CALCULI L50.9 URTICARIA, 09-18-2016 UNSPECIFIED N30.00 ACUTE 09-18-2016 CYSTITIS WITHOUT HEMATURIA R10.32 LEFT LOWER 09-18-2016 [facility] PAIN Z72.0 TOBACCO USE 09-18-2016 S52836 ELEVATED 09-18-2016 A Kaelyn HERRERA WHITE BLOOD MD PSC CELL COUNT UNSPECIFIED R197 DIARRHEA 09-18-2016 A Kaelyn HERRERA UNSPECIFIED PSC R32 UNSPECIFIED 09-18-2016 A Kaelyn HERRERA URINARY PSC INCONTINENC E R5383 OTHER 09-18-2016 A Kaelyn HERRERA FATIGUE [facility] R1012 LEFT UPPER 09-12-2016 [facility] PAIN INC L509 URTICARIA 09-09-2016 [facility] UNSPECIFIED N EMERGENCY PHYS R110 NAUSEA 09-08-2016 [facility] INC R21 RASH AND 09-08-2016 [facility] OTHER PHYSICIANS, NONSPECIFIC [facility] SKIN ERUPTION 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-08-2016 [facility] CURR [facility] NON-STEROID INC AL&ANTI-INF LAMMATORIES K31926 OTHER LONG 09-08-2016 [facility] TERM [facility] CURRENT INC DRUG THERAPY Z888 ALLERGY 09-08-2016 [facility] STATUS OTH [facility] RX MEDS & INC BIOLOG SUBSTANC STS M54.9 DORSALGIA, 08-20-2016 UNSPECIFIED R31.9 HEMATURIA, 08-20-2016 UNSPECIFIED R1032 LEFT LOWER 08-10-2016 [place] [facility] B86 SCABIES 07-04-2016 [facility] PHYSICIANS, [facility] R030 ELEVATED 06-03-2016 [facility] BLOOD-PRESS N EMERGENCY URE READING SERV WITHOUT DX HTN R0600 DYSPNEA 06-03-2016 [facility] [place] UNSPECIFIED RADIOLOGY R079 CHEST PAIN 06-03-2016 [facility] [place] UNSPECIFIED RADIOLOGY R1013 EPIGASTRIC 06-03-2016 [facility] PAIN N EMERGENCY SERV J40 BRONCHITIS 03-12-2016 A Kaelyn HECK MD PSC SPECIFIED ACUTE OR CHRONIC R05 COUGH 03-12-2016 A Kaelyn HERRERA MD PSC E860 DEHYDRATION 02-22-2016 [facility] PHYSICIANS, PLLC R1011 RIGHT UPPER 02-22-2016 [facility] PH[facility]ICIANS, PAIN PLL R1010 UPPER 02-21-2016 A Kaelyn HERRERA ABDOMINAL PSC PAIN UNSPECIFIED R1110 VOMITING 02-21-2016 A Kaelyn HERRERA UNSPECIFIED PSC Y30199 OTHER 02-14-2016 A Kaelyn HERRERA INSTABILITY PSC LEFT ANKLE R31785 PAIN IN 02-14-2016 A Kaelyn HERRERA LEFT KNEE [facility] P09734 PAIN IN 02-09-2016 A Kaelyn HERRERA RIGHT LEG [facility] W32167 PAIN IN 02-09-2016 A Kaelyn HERRERA LEFT LEG PSC V96381 EFFUSION 02-07-2016 [place] [facility] B72390 PAIN IN 02-07-2016 [place] LEFT ANKLE [facility]ICAL [facility] M7989 OTHER 02-07-2016 [place] SPECIFIED MEDICAL SOFT TISSUE IMAGING ASS DISORDERS G8929 OTHER 01-26-2016 A Kaelyn HERRERA CHRONIC [facility] PAIN N289 DISORDER OF 01-09-2016 [facility] UNSPECIFIED R000 TACHYCARDIA 01-09-2016 [facility] UNSPECIFIED FOUNDATION N209 URINARY 12-31-2015 [facility] CALCULUS PHYSICIANS, UNSPECIFIED PLLC H88713 PAIN IN 11-10-2015 [place] RIGHT ANKLE [facility]ICAL [facility]ING [facility] U99293Q SPRAIN 11-10-2015 [facility] UNSPEC PHYSICIANS, LIGAMENT PLLC RIGHT ANKLE INITIAL ENC A84724F UNSPECIFIED 11-10-2015 [place] INJURY MEDICAL RIGHT ANKLE IMAGING ASS INITIAL ENCOUNTER R319 HEMATURIA 10-07-2015 [facility] UNSPECIFIED PHYSICIANS, PLLC N8320 UNSPECIFIED 08-05-2015 [facility] OVARIAN N EMERGENCY CYSTS PHYS N8329 OTHER 08-05-2015 [facility] [place] OVARIAN RADIOLOGY CYSTS R1030 LOWER 08-04-2015 [facility] ABDOMINAL PHYSICIANS, PAIN PLLC UNSPECIFIED M549 DORSALGIA 06-26-2015 [facility] UNSPECIFIED PHYSICIANS, PLLC Z960 PRESENCE OF 06-16-2015 [facility] IMPLANTS HOSPITA N201 CALCULUS OF 05-20-2015 [facility] URETER PHYSICIANS, PLLC E669 OBESITY 05-17-2015 [facility] UNSPECIFIED N PHYSICIAN SERVI N132 HYDRONEPHRO 05-17-2015 [facility] SIS W/RENAL N PHYSICIAN & URETRL SERVI CALCULOUS OBST N1330 UNSPECIFIED 05-17-2015 [facility] ALPESH HYDRONEPHRO SIS R6510 SYS INFLM 05-17-2015 [facility] RSPN SYND N PHYSICIAN NON-INF SERVI ORIG NO AC ORGN DYSF Z6841 BODY MASS 05-16-2015 [facility] INDEX BMI COMMUNTIY 40.0-44.9 HOSPITA ADULT J208 ACUTE 04-28-2015 [facility] BRONCHITIS PHYSICIANS, DUE TO PLLC OTHER SPEC ORGANISMS K859 ACUTE 04-05-2015 [facility] PANCREATITI N EMERGENCY S PHYS UNSPECIFIED R9431 ABNORMAL 04-05-2015 [facility] ELECTROCARD COMMUNTIY IOGRAM HOSPITA 5920 CALCULUS OF 02-26-2015 [facility] [place] [facility]NEY RADIOLOGY 5990 URINARY 02-26-2015 [facility] TRACT N EMERGENCY INFECTION PHYS SITE NOT SPECIFIED 80678 NAUSEA 02-26-2015 [facility] ALONE COMMUNTIY HOSPITA 69515 DIARRHEA 02-26-2015 [facility]794 ABDOMINAL 02-26-2015 [facility] PAIN RIGHT N EMERGENCY LOWER PHYS [facility] V1301 PERSONAL 02-26-2015 [facility] HISTORY OF COMMUNTI URINARY HOSPITA CALCULI V1582 PERS HX 02-26-2015 [facility] TOBACCO USE COMMUNTIY PRESENTING HOSPITA [facility] 4019 UNSPECIFIED 02-19-2015 [facility]ENTIAL [facility] HYPERTENSIO INC N 5275 SIALOLITHIA 02-19-2015 [facility] SIS PHYSICIANS, PLLC 6202 OTHER AND 02-14-2015 [facility] UNSPECIFIED PHYSICIANS, OVARIAN PLLC CYST 95960 ABDOMINAL 12-11-2014 [place] PAIN OTHER MEDICAL SPECIFIED IMAGING ASS SITE 92861 ABDOMINAL 12-10-2014 [facility] PAIN, LEFT [facility] LOWER INC QUADRANT 0419 BACTERIAL 11-26-2014 [place] [facility] UNSPECIFIED FOUNDATION CCE & UNS SITE 02546 UNSPECIFIED 11-26-2014 [facility] PYELONEPHRI TIS V4579 OTHER 11-26-2014 [facility] ABSENCE OF ORGAN 74329 ABDOMINAL 11-21-2014 [facility] [place] PAIN, RADIOLOGY UNSPECIFIED SITE 14432 ABDOMINAL 11-20-2014 [facility] PAIN, N EMERGENCY PERIUMBILIC PHYS 81197 ABDOMINAL 11-16-2014 [place] PAIN, MEDICAL EPIGASTRIC IMAGING ASS 43639 NAUSEA WITH 11-14-2014 [facility]OMITING [facility] 5589 OTH&UNSPEC 10-31-2014 [facility] NONINFECTIO PHYSICIANS, US PLLC GASTROENTER ITIS&COLITI S 7242 LUMBAGO 10-19-2014 [facility] P 80819 ABDOMINAL 10-19-2014 [facility] PAIN, LEFT [facility] P QUADRANT 5921 CALCULUS OF 10-01-2014 [place] [facility] 7295 PAIN IN 10-01-2014 [place] SOFT MEDICAL TISSUES OF IMAGING ASS LIMB 8449 SPRAIN&STRA 10-01-2014 [facility] IN OF MEM H[facility] UNSPECIFIED INC SITE OF KNEE&LEG 9597 INJURY 10-01-2014 [place] OTHER&UNSPE MEDICAL CIFIED KNEE IMAGING ASS LEG ANKLE&FOOT F17.290 Nicotine dependence, other tobacco product, uncomplicat ed N13.2 Hydronephro sis with renal and ureteral calculous obstruction N20.0 Calculus of kidney R10.9 Unspecified abdominal pain R30.0 Dysuria Z79.899 Other terminal gauger (current) drug therapy Z88.6 Allergy status to [...] NT E HI AN A IN C MI 65 09 10 24 6 00 EA [...] 5 14 PH CE AR TA MA CT CY NO PH OF EN CY NT [...] 5 68 PH CE AR TA MA CT CY NO PH OF EN CY NT [...] BL HI ET AN A IN C CT 00 07 08 30 30 00 EA [...] 5 89 PH CE AR TA MA CT CY NO PH OF EN CY NT 5- HI 32 AN 5 A IN C CI 16 05 06 20 10 00 EA Ac MI 71 -1 -[address] ti [...] 5 33 PH CE AR TA MA CT CY NO PH OF EN CY NT [...] HI 0 AN MG A IN C MI 59 04 04 [...] 47 DE RA [address] 5 45 PH DE AR MA 10 [...] Procedure DOS Code Location Performer Comment URINLS 90470 A C KILPELA DIP 7 JAVIER ROMAN STICK/TAB PSC LET REAGNT NON-AUTO MICRSCPY RADEX 21056 [facility] ABDOMEN 1 7 MEDICAL IMAGING ANTEROPOS ASS TERIOR VIEW LUMB L0627 ANNELIESE ANNELIESE ORTHOSIS 7 HOME HOME SAGIT MEDICAL MEDICAL CNTRL EQUIPME EQUIPME RIGID A&P PANEL PREFAB UNCLASSIF J3490 [facility] BUSTAM[facility] IED DRUGS 7 [facility] INC INC URINE 04100 [facility] BUSTAMANTE 7 [facility] TEST INC INC VISUAL COLOR CMPRSN METHS RADEX 65716 [facility]USTAM[facility] SPINE 7 [facility] LUMBOSACR INC INC AL MINIMUM 4 VIEWS CULTURE 34185 [facility] LAB JANNA BACTERIAL 7 ROSY ROSY HOLDINGS HOLDINGS QUANTTATI VE COLONY COUNT URINE URINLS 11406 A C KILPELA DIP 7 JAVIER ROMAN STICK/TAB PSC LET REAGNT NON-AUTO MICRSCPY OBSERVATI 95860 A C NEELAM ON CARE 7 JAVIER ROMAN DISCHARGE PSC MANAGEMEN T UNCLASSIF J3490 [facility]AM[facility] IED DRUGS 7 [facility] INC INC BLOOD 72678 [facility] COUNT 7 [facility] COMPLETE INC INC AUTO&AUTO DIFRNTL WBC BLOOD 19229 [facility] COUNT 7 [facility] COMPLETE INC INC AUTO&AUTO DIFRNTL WBC UNCLASSIF J3490 [facility] IED DRUGS 7 [facility] INC INC INITIAL 52233 Lynn RICHTER OBSERVATI 7 JAVIER ROMAN ON PSC CARE/DAY 70 MINUTES BASIC 25967 [facility] METABOLIC 7 [facility] PANEL INC [facility] G0378 [facility] B[facility] OBSERVATI 7 [facility] ON INC INC [facility] G[facility]8 [facility] OBSERVATI 7 [facility] [place] [address] DIANNA BUSTAMANTE INFUSION 7 [facility] THERAPY/P INC INC ROPHYLAXI S /DX 1ST TO 1 HR THERAPEUT 27261 [facility] IC 7 [facility] INJECTION INC INC IV PUSH EACH NEW DRUG COMPREHEN 20378 [facility] B[facility]AM[facility] SIVE 7 [facility] METABOLIC INC INC PANEL CULTURE 47445 [facility]UST[facility]TE BACTERIAL 7 [facility] INC INC QUANTTATI VE COLONY COUNT URINE UNCLASSIF J3490 [facility] IED DRUGS 7 [facility] INC INC URNLS DIP 57467 [facility] BUSTAMANTE 7 [facility] STICK/TAB INC INC LET REAGENT AUTO MICROSCOP Y BLOOD 70074 [facility] COUNT 7 [facility] COMPLETE INC INC AUTO&AUTO DIFRNTL WBC GROUND A0425 [facility] 7 AMBULANCE AMBULANCE PER SERVICE SERVICE STATUTE MILE AMBULANCE A0429 [facility] SERVICE 7 AMBULANCE AMBULANCE BLS [place] [address] [facility] JOCY MOTLEY ABDOMEN & 7 RADIOLOGY PELVIS W/[place] [address] ROBERTA CONNORS ABDOMEN & 7 MEDICAL PELVIS IMAGING W/O ASS CONTRAST MATERIAL URINLS 76517 Lynn RICK DIP 7 JAVIER ROMAN STICK/TAB [facility] LET REAGNT NON-AUTO MICRSCPY UNCLASSIF J3490 [facility] BUSTAMANTE IED DRUGS 7 [facility] INC INC URINLS 64996 A Kaelyn RICK DIP 7 JAVIER ROMAN STICK/TAB PSC LET REAGNT NON-AUTO MICRSCPY BLOOD 33559 A C MERLINE COUNT 7 JAVIER ROMAN COMPLETE PSC AUTO&AUTO DIFRNTL WBC COLLECTIO 97903 A Kaelyn MERLINE N VENOUS 7 JAVIER [place] [address] [facility] [place] [facility] ABDOMEN & 7 RADIOLOGY PELVIS W/O CONTRAST MATERIAL URNLS DIP 35964 [facility] BUSTAMANTE 7 [facility] STICK/TAB INC INC LET REAGENT AUTO MICROSCOP Y UNCLASSIF J3490 [facility] BUSTAM[facility]TE IED DRUGS 7 [facility] INC INC CULTURE 54776 [facility] BUST[facility]TE BACTERIAL 7 [facility] INC [place] [address] [facility] ABDOMEN & 7 MEDICAL PELVIS IMAGING W/O ASS CONTRAST MATERIAL URNLS DIP 56916 [facility] 6 N N STICK/TAB COMMUNTIY COMMUNTIY LET HOSPITA HOSPITA REAGENT AUTO MICROSCOP Y CULTURE 23638 [facility] BACTERIAL 6 N N COMMUNTIY COMMUNTIY QUANTTATI HOSPITA HOSPITA VE COLONY COUNT URINE THERAPEUT 21915 [facility] IC 6 N N PROPHYLAC COMMUNTIY COMMUNTIY TIC/DX HOSPITA HOSPITA INJECTION SUBQ/IM RADIOLOGI 32387 [facility] [place] FIDENCIO C 6 RADIOLOGY EXAMINATI ON CHEST SINGLE VIEW FRONTAL ECG 41729 [facility] ROUTINE 6 SAMANTHA ECG EMERGENCY W/LEAST SERV 12 LDS I&R ONLY URNLS DIP 56334 [facility] BUSTAMANTE 6 [facility] STICK/TAB INC INC LET REAGENT AUTO MICROSCOP Y UNCLASSIF J3490 [facility] BUSTAMANTE IED DRUGS 6 [facility] INC INC URINE 30432 [facility] BUSTAMANTE 6 [facility] TEST INC INC VISUAL COLOR CMPRSN METHS CULTURE 54262 [facility]UST[facility]TE BACTERIAL 6 [facility] INC [place] [address] [facility] JOCY DASILVA ABDOMEN & 6 RADIOLOGY III KISHA PELVIS W/O CONTRAST MATERIAL OBSERVATI 69201 A Kaelyn RICHTER SHAYY ON/INPATI 6 JAVIER ROMAN ENT [facility] HOSPITAL C[place] [address] [place] [address] ROBERTA GARZA ABDOMEN & 6 MEDICAL [place] PELVIS IMAGING W/O ASS CONTRST 1/> BODY RE THERAPEUT 24158 A Kaelyn RICK IC 6 JAVIER CHI PROPHYLAC PSC TIC/DX INJECTION SUBQ/IM INJECTION J2550 A Kaelyn RICK 6 JAVIER CHI PROMETHAZ PSC INE HCL UP TO 50 MG URINLS 58817 A C MERLINE DIP 6 JAVIER CHI STICK/TAB PSC [place] [address] DIAN[facility] BUSTAMANTE LIPASE 6 [facility] H[facility] INC INC BLOOD 78648 DIANNA BUSTAMANTE COUNT 6 [facility] COMPLETE INC INC AUTO&AUTO DIFRNTL WBC COMPREHEN 18783 DIANNA BUSTAMANTE SIVE 6 [facility] [place] [address] DIANNA BUSTAMANTE AMYLASE 6 [facility] INC INC COLLECTIO 80768 DIANNA BUSTAMANTE N VENOUS 6 [facility] BLOOD INC INC VENIPUNCT URE URINLS 62040 A C MERLINE DIP 6 JAVIER CHI STICK/TAB PSC LET REAGNT NON-AUTO MICRSCPY MRI ANY 73579 DIANNA BUSTAMANTE JT LOWER 6 [facility] EXTREM INC INC W/[place] [address] DIANNA BUSTAMANTE RETROPERI 6 [facility] TONEAL INC INC REAL TIME W/[place] [address] [facility] CONNORS ALL RETROPERI 6 MEDICAL TONEAL IMAGING REAL TIME ASS W/IMAGE LIMITED THERAPEUT 04572 A Kaelyn RICK IC 6 JAVIER CHI PROPHYLAC PSC TIC/DX INJECTION SUBQ/IM BLOOD 01543 A C MERLINE COUNT 6 JAVIER CHI COMPLETE PSC AUTO&AUTO DIFRNTL WBC INJECTION J0696 A Kaelyn RICK 6 JAVIER CHI CEFTRIAXO PSC NE SODIUM PER 250 MG URINLS 81743 A C MERLINE DIP 6 JAVIER CHI STICK/TAB PSC LET REAGNT NON-AUTO MICRSCPY URINLS 44211 A C MERLINE DIP 6 JAVIER CHI STICK/TAB PSC LET REAGNT NON-AUTO MICRSCPY BLOOD 75441 A C MERLINE COUNT 6 JAVIER CHI COMPLETE PSC AUTO&AUTO DIFRNTL WBC INJECTION J0696 A C MERLINE 6 JAVIER CHI CEFTRIAXO PSC NE SODIUM PER 250 MG THERAPEUT 84936 A C MERLINE IC 6 JAVIER CHI PROPHYLAC PSC TIC/DX INJECTION SUBQ/IM CULTURE 74764 LAB JANNA LAB JANNA BACTERIAL 6 ROSY ROYS HOLDINGS HOLDINGS QUANTTATI VE COLONY COUNT URINE CUL BACT 36039 LAB [facility] LAB JANNA AEROBIC 6 ROSY ROSY ADDL HOLDINGS HOLDINGS METHS DEFINITIV E EA ISOL CULTURE 15070 LAB [facility] LAB JANNA BCT 6 ROSY ROSY ISOL&PRSM HOLDINGS HOLDINGS PTV ID ISOLATE EA URINE SUSCEPTIB 46516 LAB [facility] LAB JANNA LTY STDY 6 ROSY ROSY ANTIMICRB HOLDINGS HOLDINGS IAL MICRO/AGA R DILUTJ THERAPEUT 16459 A C MERLINE IC 6 JAVIER CHI PROPHYLAC PSC TIC/DX INJECTION SUBQ/IM INJECTION J2550 A C A C 6 JAVIER HERRERA MD PROMETHAZ PSC PSC INE HCL UP TO 50 MG INJECTION J0696 A C MERLINE 6 JAVIER CHI CEFTRIAXO PSC NE SODIUM PER 250 MG URINLS 40567 A C MERLINE DIP 6 JAVIER CHI STICK/TAB [place] [address] [place] CONNORS ALL ABDOMEN & 6 MEDICAL PELVIS IMAGING W/O ASS CONTRAST MATERIAL RADIOLOGI 66997 [place] KAYLA C 6 MEDICAL WOL[place]ANG EXAMINATI IMAGING ON ANKLE ASS 2 VIEWS URINLS 72071 A C KILPELA DIP 6 JAVIER LOGAN STICK/TAB PSC LET REAGNT NON-AUTO MICRSCPY RADEX 08551 [place] CONNORS ALL SPINE 6 MEDICAL LUMBOSACR IMAGING AL 2/3 ASS VIEWS RADEX 44667 DIANNA BUSTAMANTE SPINE 6 [facility] LUMBOSACR INC INC AL MINIMUM 4 VIEWS RADEX 14211 [facility] BUSTAMANTE ANKLE 6 [facility] COMPLETE INC INC MINIMUM 3 VIEWS RADEX 24610 [place] MERHAR ANKLE 6 MEDICAL GAR COMPLETE SERV MINIMUM 3 FOUNDATIO VIEWS N RADEX 69740 [place] MER[place] FOOT 6 MEDICAL GAR COMPLETE SERV MINIMUM [address] [place] [address] [facility] [place] JAM ABDOMEN & 6 RADIOLOGY PELVIS W/O CONTRAST MATERIAL URINLS 68504 A C RICK DIP 6 JAVIER ROMAN ARTI STICK/TAB [place] [address] [place] PA[place] RETROPERI 6 MEDICAL BAR TONEAL SERV REAL TIME FOUNDATIO W/[place] [address] [facility] [place] SCALF RITO ABDOMEN & 6 RADIOLOGY PELVIS W/O CONTRAST MATERIAL THERAPEUT 92351 DI[facility]NA BUSTAMANTE IC 6 [facility] INJECTION INC INC IV PUSH EACH NEW DRUG COLLECTIO 86140 DI[facility]NA BUSTAMANTE N VENOUS 6 [facility] BLOOD INC INC VENIPUNCT URE THER 59783 [facility] BUSTAMANTE PROPH/DX 6 [facility] NJX IV INC INC PUSH SINGLE/1S T SBST/DRUG COMPREHEN 84741 DIANNA BUSTAMANTE SIVE 6 [facility] METABOLIC INC INC PANEL CULTURE 81183 DI[facility] BUSTAMANTE BACTERIAL 6 [facility] INC INC QUANTTATI VE COLONY COUNT URINE UNCLASSIF J3490 DIANNA BUSTAMANTE IED DRUGS 6 [facility] INC INC URNLS DIP 18322 DI[facility] BUSTAMANTE 6 [facility] STICK/TAB INC [place] [address] DIANNA BUSTAMANTE ABDOMEN & 6 [facility] PELVIS INC INC W/O CONTRAST MATERIAL BLOOD 27742 DIANNA BUSTAMANTE COUNT 6 [facility] COMPLETE INC INC AUTO&[place] [address] ROBERTA GARZA ABDOMEN & 6 MEDICAL WOLFGANG PELVIS IMAGING W/O ASS CONTRAST MATERIAL RADIOLOGI 63986 ROBERTA CONNORS ALL C 6 MEDICAL EXAMINATI IMAGING ON [place] [address] [place] [address] ROBERTA YOUNG ABDOMEN & 6 MEDICAL MARCIA PELVIS IMAG[place] [address] [facility] [place] YULI ABDOMEN & 6 RADIOLOGY RHO PELVIS W/[place] [address] [facility] [place] FU ABDOMEN & 6 RADIOLOGY CAR PELVIS W/O CONTRAST MATERIAL THERAPEUT 49039 DIANNA BUSTAMANTE IC 6 [facility] PROPHYLAC INC INC TIC/DX INJECTION SUBQ/IM BASIC 01879 DIANNA BUSTAMANTE METABOLIC 6 [facility] PANEL INC INC CALCIUM TOTAL COLLECTIO 99858 DIANNA BUSTAMANTE N VENOUS 6 [facility] BLOOD INC INC VENIPUNCT URE BLOOD 41070 [facility] COUNT 6 [facility] COMPLETE INC INC AUTO&AUTO DIFRNTL WBC UNCLASSIF J3490 [facility] IED DRUGS 6 [facility] INC INC URINE 52046 [facility] 6 N N TEST COMMUNTIY COMMUNTIY VISUAL HOSPITA HOSPITA COLOR CMPRSN METHS URNLS DIP 90788 [facility] 6 N N STICK/TAB COMMUNTIY COMMUNTIY LET HOSPITA HOSPITA REAGENT AUTO MICROSCOP Y BLOOD 02281 [facility] COUNT 6 N N COMPLETE COMMUNTIY COMMUNTIY AUTO&AUT[place] [address] [facility] INFUSION 6 N N THERAPY/P COMMUNTIY COMMUNTIY ROPHYLAXI HOSPITA HOSPITA S /DX 1ST TO 1 HR THERAPEUT 19516 [facility] IC 6 N N INJECTION COMMUNTIY COMMUNTIY IV PUSH HOSPITA HOSPITA EACH NEW DRUG COLLECTIO 04638 [facility] N VENOUS 6 N N BLOOD COMMUNTIY COMMUNTIY VENIPUNCT HOSPITA HOSPITA URE CUL BACT 25257 [facility] AEROBIC 6 N N ADDL COMMUNTIY COMMUNTIY METHS HOSPITA HOSPITA DEFINITIV E EA ISOL CULTURE 94934 [facility] BACTERIAL 6 N N COMMUNTIY COMMUNTIY QUANTTATI [place]OSP[place] [address] [facility] ABDOMEN & 6 N N PELVIS COMMUNTIY COMMUNTIY W/O HOSPITA HOSPITA CONTRAST MATERIAL COMPREHEN 51229 [facility] SIVE 6 N N METABOLIC COMMUNTIY COMMUNTIY PANEL HOSPITA HOSPITA SUSCEPTIB 13543 [facility] LTY STDY 6 N N ANTIMICRB COMMUNTIY COMMUNTIY IAL HOSPITA HOSPITA MICRO/[place] [address] [facility] INFUSION 6 N N HYDRATION COMMUNTIY COMMUNTIY E[place] [address] [facility] INFUSION 6 N N THER COMMUNTIY COMMUNTIY PROPH HOSPITA HOSPITA ADDL SEQUENTIA L [place] 1 [place] [address] [facility] INFUSION 5 N N HYDRATION COMMUNTIY COMMUNTIY EACH HOSPITA HOSPITA ADDITIONA L HOUR INJECTION J2550 [facility] 5 N N PROMETHAZ COMMUNTIY COMMUNTIY INE HCL HOSPITA HOSPITA UP TO 50 MG CULTURE 55597 [facility] BACTERIAL 5 N N COMMUNTIY COMMUNTIY QUANTTATI HOSPITA HOSPITA VE COLONY COUNT URINE COMPREHEN 78211 [facility] SIVE 5 N N METABOLIC COMMUNTIY COMM[place] [address] [facility] INFUSION 5 N N THERAPY/P COMMUNTIY COMMUNTIY ROPHYLAXI HOSPITA HOSPITA S /DX 1ST TO 1 HR THER 14962 [facility] PROPH/DX 5 N N NJX EA COMMUNTIY COMMUNTIY SEQL IV HOSPITA HOSPITA PUSH SBST/DRUG FAC COLLECTIO 54990 [facility] N VENOUS 5 N N BLOOD COMMUNTIY COMMUNTIY VENIPUNCT HOSPITA HOSPITA URE THERAPEUT 88607 [facility] IC 5 N N INJECTION COMMUNTIY COMMUNTIY IV PUSH HOSPITA HOSPITA EACH NEW DRUG INJECTION J2270 [facility] MORPHINE 5 N N SULFATE COMMUNTIY COMMUNTIY UP TO 10 HOSPITA HOSPITA MG BLOOD 46392 [facility] COUNT 5 N N COMPLETE COMMUNTIY COMMUNTIY AUTO&AUTO HOSPITA HOSPITA DIFRNTL WBC URNLS DIP 02386 [facility] 5 N N STICK/TAB COMMUNTIY COMMUNTIY LET HOSPITA HOSPITA [place] [address] [facility] LIPASE 5 N N COMMUNTIY COMMUNTIY HOSPITA HOSPITA RADEX 05796 [facility] ABDOMEN 1 5 [facility] INC INC ANTEROPOS TERIOR VIEW INJECTION J2001 [facility] 5 N N LIDOCAINE COMMUNTIY COMMUNTIY HCL HOSPITA HOSPITA INTRAVENO US INFUS 10 MG INJECTION J1100 [facility] 5 N N DEXAMETHO COMMUNTIY COMMUNTIY SONE HOSPITA HOSPITA SODIUM PHOSPHATE 1 MG INJECTION J1170 [facility] 5 N N HYDROMORP COMMUNTIY COMMUNTIY RON UP HOSPITA HOSPITA TO 4 MG BLOOD 62595 [facility] COUNT 5 N N HEMOGLOBI COMMUNTIY COMMUNTIY N HOSPITA HOSPITA INJECTION J2704 [facility] PROPOFOL 5 N N 10 MG COMMUNTIY COMMUNTIY HOSPITA HOSPITA OBSERVATI 86154 [facility] ON CARE 5 SAMANTHA A GOP DISCHARGE PHYSICIAN SERVI MANAGEMEN T COLLECTIO 61687 [facility] N VENOUS 5 N N BLOOD COMMUNTIY COMMUNTIY VENIPUNCT HOSPITA HOSPITA URE BLOOD 01280 [facility] COUNT 5 N N HEMATOCRI COMMUNTIY COMMUNTIY T HOSPITA HOSPITA BASIC 96555 [facility] METABOLIC 5 N N PANEL COMMUNTIY COMMUNTIY CALCIUM HOSPITA HOSPITA TOTAL THER 86830 [facility] PROPH/DX 5 N N NJX EA COMMUNTIY COMMUNTIY SEQL IV HOSPITA HOSPITA PUSH SBST/DRUG FAC INJECTION J2550 [facility] 5 N N PROMETHAZ COMMUNTIY COMMUNTIY INE HCL HOSPITA HOSPITA UP TO 50 MG INJ J2543 [facility] PIPERACIL 5 N N MEGHAN COMMUNTIY COMMUNTIY SOD/TAZOB HOSPITA HOSPITA ACTAM SOD 1 G/0.125 G PROTHROMB 69668 [facility] IN TIME 5 N N COMMUNTIY COMMUNTIY HOSPITA HOSPITA CYSTO 55356 [facility] W/URETERO 5 N N SCOPY COMMUNTIY COMMUNTIY W/RMVL/MA HOSPITA HOSPITA NJ STONES DILATION 87379 [facility] NEPHROSTO 5 ALPESH ALPESH MY/URETER /URETHRA RS&I INJ J2543 [facility] PIPERACIL 5 N N MEGHAN COMMUNTIY COMMUNTIY SOD/TAZOB HOSPITA HOSPITA ACTAM SOD 1 G/0.125 G SBSQ 48105 [facility] OBSERVATI 5 SAMANTHA A GOP ON PHYSICIAN CARE/DAY SERVI 35 MINUTES INJECTION J2550 [facility] 5 N N PROMETHAZ COMMUNTIY COMMUNTIY INE HCL HOSPITA HOSPITA UP TO 50 MG COMPREHEN 47705 [facility] SIVE 5 N N METABOLIC COMMUNTIY COMMUNTIY PANEL HOSPITA HOSPITA GUIDE C1769 [facility] WIRE 5 N N COMMUNTIY COMMUNTIY HOSPITA HOSPITA STENT C2617 [facility] NON-COR 5 N N TEMPORARY COMMUNTIY COMMUNTIY WITHOUT HOSPITA HOSPITA DELIVERY SYSTEM CYSTO 26661 [facility] W/INSERT 5 N N URETERAL COMMUNTIY COMMUNTIY STENT HOSPITA HOSPITA THER 08891 [facility] PROPH/DX 5 N N NJX EA COMMUNTIY COMMUNTIY SEQL IV HOSPITA HOSPITA PUSH SBST/[place] [address] [facility] ABDOMEN & 5 N N PELVIS COMMUNTIY COMMUNTIY W/O HOSPITA HOSPITA CONTRAST MATERIAL CULTURE 97062 [facility] BACTERIAL 5 N N COMMUNTIY COMMUNTIY QUANTTATI HOSPITA HOSPITA VE COLONY COUNT URINE COLLECTIO 16320 [facility] N VENOUS 5 N N BLOOD COMMUNTIY COMMUNTIY VENIPUNCT HOSPITA HOSPITA URE ANES 76006 [place] TRUR 5 ANESTHESI JERILYN FRAGMNTJ A GROUP MANJ&/RMV PS L URETERAL CALCULUS URINE 22065 [facility] 5 N N TEST COMMUNTIY COMMUNTIY VISUAL HOSPITA HOSPITA COLOR CMPRSN METHS INFUSION J7030 [facility] NORMAL 5 N N SALINE COMMUNTIY COMMUNTIY SOLUTION HOSPITA HOSPITA 1000 CC URNLS DIP 85169 [facility] 5 N N STICK/TAB COMMUNTIY COMMUNTIY LET HOSPITA HOSPITA REAGENT AUTO MICROSCOP Y CALCULUS 18884 [facility] QUANTITAT 5 N N DEVYN COMMUNTIY COMMUNTIY CHEMICAL HOSPITA HOSPITA BLOOD 51938 [facility] COUNT 5 N N COMPLETE COMMUNTIY COMMUNTIY AUTO&AUTO HOSPITA HOSPITA DIFRNTL WBC INJECTION J0696 [facility] 5 N N CEFTRIAXO COMMUNTIY COMMUNTIY NE SODIUM HOSPITA HOSPITA PER 250 MG TOBACCO 81272 [facility] USE 5 N N CESSATION COMMUNTIY COMMUNTIY HOSPITA HOSPITA INTERMEDI ATE 3-10 MINUTES INJECTION J1170 [facility] 5 N N HYDROMORP COMMUNTIY COMMUNTIY RON UP HOSPITA HOSPITA TO 4 [place] [address] [facility] INFUSION 5 N N THERAPY/P COMMUNTIY COMMUNTIY ROPHYLAXI HOSPITA HOSPITA S /DX 1ST TO 1 HR RINGERS J7120 [facility] LACTATE 5 N N INFUSION COMMUNTIY COMMUNTIY UP TO HOSPITA HOSPITA 1000 CC INJECTION J1170 [facility] 5 N N HYDROMORP COMMUNTIY COMMUNTIY RON UP HOSPITA HOSPITA TO 4 MG INJECTION J2270 [facility] MORPHINE 5 N N SULFATE COMMUNTIY COMMUNTIY UP TO 10 HOSPITA HOSPITA MG BLOOD 37788 [facility] COUNT 5 N N COMPLETE COMMUNTIY COMMUNTIY AUTO&AUTO HOSPITA HOSPITA DIFRNTL WBC URNLS DIP 47130 [facility] 5 N N STICK/TAB COMMUNTIY COMMUNTIY LET HOSPITA HOSPITA REAGENT AUTO MICROSCOP Y INFUSION J7030 [facility] NORMAL 5 N N SALINE COMMUNTIY COMMUNTIY SOLUTION HOSPITA HOSPITA 1000 CC INTRODUCT 03919 [facility] ION 5 SAMANTHA JERILYN NEEDLE/IN EMERGENCY TRACATHET PHYS ER VEIN THERAPEUT 69363 [facility] IC 5 N N INJECTION COMMUNTIY COMMUNTIY IV PUSH HOSPITA HOSPITA EACH NEW DRUG COLLECTIO 60174 [facility] N VENOUS 5 N N BLOOD COMMUNTIY COMMUNTIY VENIPUNCT HOSPITA HOSPITA URE INITIAL 65455 [facility] OBSERVATI 5 SAMANTHA A GOP ON PHYSICIAN CARE/DAY SERVI 70 MINUTES CULTURE 99491 [facility] BACTERIAL 5 N N COMMUNTIY COMMUNTIY QUANTTATI HOSPITA HOSPITA VE COLONY COUNT URINE THROMBOPL 22450 [facility] ASTIN 5 N N TIME COMMUNTIY COMMUNTIY PARTIAL HOSPITA HOSPITA PLASMA/WH OLE BLOOD THER 26223 [facility] PROPH/DX 5 N N NJX EA COMMUNTIY COMMUNTIY SEQL IV HOSPITA HOSPITA PUSH SBST/[place] [address] [facility] GARZA ABDOMEN & 5 MED[facility] PELVIS IMAGING W/O ASS CONTRAST MATERIAL CULTURE 91212 [facility] BACTERIAL 5 N N BLOOD COMMUNTIY COMMUNTIY AEROBIC HOSPITA HOSPITA W/[facility] [id number] [facility] OBSERVATI 5 N N ON COMMUNTIY COMMUNTIY SERVICE HOSPITA HOSPITA PER HOUR COMPREHEN 04167 [facility] SIVE 5 N N METABOLIC COMMUNTIY COMMUNTIY PANEL HOSPITA HOSPITA INJECTION J2550 [facility] 5 N N PROMETHAZ COMMUNTIY COMMUNTIY INE HCL HOSPITA HOSPITA UP TO 50 MG INJ J2543 [facility] PIPERACIL 5 N N MEGHAN COMMUNTIY COMMUNTIY SOD/TAZOB HOSPITA HOSPITA ACTAM SOD 1 G/0.125 G THERAPEUT 48205 [facility] IC 5 N N PROPHYLAC COMMUNTIY COMMUNTIY TIC/DX HOSPITA HOSPITA INJECTION SUBQ/IM CULTURE 58502 DIANNA BUSTAMANTE BACTERIAL 5 [facility] INC INC QUANTTATI VE COLONY COUNT URINE URINE 26154 DIAN[facility] BUSTAMANTE 5 [facility] TEST INC INC VISUAL COLOR CMPRSN METHS URNLS DIP 81595 [facility] BUSTAMANTE 5 [facility] STICK/TAB INC INC LET REAGENT AUTO MICROSCOP Y UNCLASSIF J3490 DIANNA BUSTAMANTE IED DRUGS 5 [facility] INC INC URNLS DIP 90505 [facility] 5 N N STICK/TAB COMMUNTIY COMMUNTIY LET HOSPITA HOSPITA REAGENT AUTO MICROSCOP Y INFUSION J7030 [facility] NORMAL 5 N N SALINE COMMUNTIY COMMUNTIY SOLUTION HOSPITA HOSPITA [address] [place] [address] [facility] LIPASE 5 N N COMMUNTIY COMMUNTIY HOSPITA HOSPITA BLOOD 81239 [facility] COUNT 5 N N SMEAR COMMUNTIY COMMUNTIY MCRSCP HOSPITA HOSPITA W/MNL DIFRNTL WBC COUNT URINE 36215 [facility] 5 N N TEST COMMUNTIY COMMUNTIY VISUAL HOSPITA HOSPITA COLOR CMPRSN METHS BLOOD 86927 [facility] COUNT 5 N N COMPLETE COMMUNTIY COMMUNTIY AUTOMATED HOSPITA HOSPITA INJECTION J2270 [facility] MORPHINE 5 N N SULFATE COMMUNTIY COMMUNTIY UP TO 10 HOSPITA HOSPITA MG ECG 18393 [facility] CELLAROSI ROUTINE 5 SAMANTHA - YORBA ECG EMERGENCY PAT W/LEAST PHYS 12 LDS I&R ONLY CULTURE 48414 [facility] BACTERIAL 5 N N COMMUNTIY COMMUNTIY QUANTTATI HOSPITA HOSPITA VE COLONY COUNT URINE COMPREHEN 92094 [facility] SIVE 5 N N METABOLIC COMMUNTIY COMMUNTIY PANEL HOSPITA HOSPITA INJECTION J2550 [facility] 5 N N PROMETHAZ COMMUNTIY COMMUNTIY INE HCL HOSPITA HOSPITA UP [place] 50 [place] [address] [facility] INFUSION 5 N N HYDRATION COMMUNTIY COMMUNTIY EACH HOSPITA HOSPITA ADDITIONA L HOUR ECG 06613 [facility] ROUTINE 5 N N ECG COMMUNTIY COMMUNTIY W/LEAST HOSPITA HOSPITA 12 LDS TRCG ONLY W/O [place] [address] [facility] INFUSION 5 N N THERAPY/P COMMUNTIY COMMUNTIY ROPHYLAXI HOSPITA HOSPITA S /DX 1ST TO 1 HR COLLECTIO 36718 [facility] N VENOUS 5 N N BLOOD COMMUNTIY COMMUNTIY VENIPUNCT HOSPITA HOSPITA URE THERAPEUT 18752 [facility] IC 5 N N INJECTION COMMUNTIY COMMUNTIY IV PUSH HOSPITA HOSPITA EACH NEW DRUG COLLECTIO 88917 [facility] N VENOUS 5 N N BLOOD COMMUNTIY COMMUNTIY [place] [address] [facility] JUDD ABDOMEN & 5 RADIOLOGY [place]EL[place] [address] [facility] INFUSION 5 N N HYDRATION COMMUNTIY COMMUNTIY EACH HOSPITA HOSPITA ADDITIONA L HOUR THER 13237 [facility] PROPH/DX 5 N N NJX IV COMMUNTIY COMMUNTIY PUSH HOSPITA HOSPITA SINGLE/1S T SBST/DRUG CULTURE 04744 [facility] BACTERIAL 5 N N COMMUNTIY COMMUNTIY QUANTTATI HOSPITA HOSPITA VE COLONY COUNT URINE COMPREHEN 85108 [facility] SIVE 5 N N METABOLIC COMMUNTIY COMMUNTIY PANEL HOSPITA HOSPITA INJECTION J2270 [facility] MORPHINE 5 N N SULFATE COMMUNTIY COMMUNTIY UP TO 10 HOSPITA HOSPITA MG BLOOD 29654 [facility] COUNT 5 N N COMPLETE COMMUNTIY COMMUNTIY AUTO&AUTO HOSPITA HOSPITA DIFRNTL WBC URNLS DIP 85852 [facility] 5 N N STICK/TAB COMMUNTIY COMMUNTIY LET HOSPITA HOSPITA REAGENT AUTO MICROSCOP Y URINE 52297 [facility] 5 N N TEST COMMUNTIY COMMUNTIY VISUAL HOSPITA [place] [address] [facility] LIPASE 5 N N COMMUNTIY COMMUNTIY HOSPITA HOSPITA INFUSION J7030 [facility] NORMAL 5 N N SALINE COMMUNTIY COMMUNTIY SOLUTION HOSPITA HOSPITA 1000 CC UNCLASSIF J3490 DIANNA BUSTAMANTE IED DRUGS 5 [place] [address] DIANNA PALACIOSON LIPASE 5 [facility] INC INC BLOOD 17145 DIANNA PALACIOSON COUNT 5 [facility] COMPLETE INC INC AUTO&[place] [address] [place] ABDOMEN & 5 MED[facility]OL[facility] PELVIS IMAGING W/O ASS CONTRAST MATERIAL COMPREHEN 75268 DIANNA BUSTAMANTE SIVE 5 [facility] [address] DIANNA PALACIOSON AMYLASE 5 [facility] INC INC CULTURE 17344 [facility] BUSTAMANTE BACTERIAL 5 [facility] INC INC QUANTTATI VE COLONY COUNT URINE URNLS DIP 24331 DIANNA PALACIOSON 5 [facility] STICK/TAB INC INC LET REAGENT AUTO MICROSCOP Y URINE 19691 DIAN[facility] BUSTAMANTE 5 [facility] TEST INC [place] [address] DIANNA BUSTAMANTE LIPASE 5 [facility] INC INC UNCLASSIF J3490 DIANNA BUSTAMANTE IED DRUGS 5 [facility] INC INC BLOOD 67792 DIAN[facility] BUSTAMANTE COUNT 5 [facility] COMPLETE INC INC AUTO&AUTO DIFRNTL WBC COMPREHEN 00908 DIANNA BUSTAMANTE SIVE 5 [facility] METABOLIC INC INC PANEL COLLECTIO 49765 DIANNA BUSTAMANTE N VENOUS 5 [facility] BLOOD INC INC VENIPUNCT URE URNLS DIP [address] DIAN[address]TE [address] [facility] STICK/TAB INC INC LET REAGENT AUTO MICROSCOP Y URINE [address] [facility] TEST INC [place] [address] [facility] ABDOMEN & 5 MEDICAL WOLFGANG PELVIS IMAGING W/O ASS CONTRAST MATERIAL URINE 41663 DIANNA BUSTAMANTE 5 [facility] TEST INC INC VISUAL COLOR CMPRSN METHS URNLS DIP 82902 DIANNA BUSTAMANTE 5 [facility] STICK/TAB INC INC LET REAGENT AUTO MICROSCOP Y INJECTION J2270 [facility] MORPHINE 5 Y Y SULFATE [facility] UP TO 10 MG INJECTION J1956 [facility] 5 Y Y LEVOFLOXA [facility] LETY 250 MG INJECTION J1200 [facility] 5 Y Y DIPHENHYD [facility] RAMINE HCL UP TO 50 MG URINE 35581 [facility] 5 Y Y TEST HOSPITAL HOSPITAL VISUAL COLOR CMPRSN METHS INFUSION J7030 [facility] NORMAL 5 Y Y SALINE HOSPITAL HOSPITAL SOLUTION [address] [place] [address] [facility] LIPASE 5 Y Y HOSPITAL HOSPITAL INJECTION J2270 [facility] MORPHINE 5 Y Y SULFATE [facility] UP TO 10 MG URNLS DIP 91075 [facility] 5 Y Y STICK/TAB [facility]OSPITAL LET REAGENT AUTO MICROSCOP Y BLOOD 29543 [facility] UNIVERS COUNT 5 Y Y COMPLETE [facility] [place] [address] [facility] INFUSION 5 Y Y THERAPY/P [facility] ROPHYLAXI S /DX 1ST TO 1 HR THER 83866 [facility] PROPH/DX 5 Y Y NJX EA [facility] SEQL IV PUSH SBST/DRUG FAC THERAPEUT 78863 [facility] IC 5 Y Y INJECTION [facility] IV PUSH EACH NEW DRUG COMPREHEN 85499 [facility] SIVE 5 Y Y METABOLIC [facility] PANEL INJECTION J2765 [facility] 5 Y Y [facility] AMIDE HCL [place] [address] [place] [address] [facility] ABDOMEN & 5 RADIOLOGY ROBERT PELVIS W/O CONTRAST MATERIAL THROMBOPL 82936 [facility] BUST[facility]ANTE ASTIN 5 [facility] TIME INC INC PARTIAL PLASMA/WH OLE BLOOD THERAPEUT 08516 [facility]USTAMANTE IC 5 [facility] INJECTION INC [place] [address] [facility] BUSTAMANTE AMYLASE 5 [facility] INC INC PROTHROMB 32006 DIANNA BUSTAMANTE IN TIME 5 MEM [facility]OS[facility] INC INC COMPREHEN 15153 DIANNA BUSTAMANTE SIVE 5 [facility]OS[facility] METABOLIC INC INC PANEL CULTURE 71293 [facility] BUST[facility]TE BACTERIAL 5 [facility]OS[facility] INC INC QUANTTATI VE COLONY COUNT URINE BLOOD 95226 DI[facility] BUSTAMANTE COUNT 5 [facility] COMPLETE INC INC AUTO&[place] [address] [facility] B[facility] INFUSION 5 [facility] THERAPY/P INC INC ROPHYLAXI S /DX [address] [place] [address] [place] [address] [facility] BUSTAMANTE ABDOMEN & 5 [facility] PELVIS INC INC W/O CONTRAST MATERIAL URNLS DIP 74836 DI[facility] BUSTAMANTE 5 [facility] STICK/TAB INC INC LET [place] [address] [facility] BUSTAMANTE LIPASE 5 [facility] INC INC UNCLASSIF J3490 DIANNA BUSTAMANTE IED DRUGS 5 [facility] INC INC URINE 46160 [facility] 5 N N TEST COMMUNTIY COMMUNTIY VISUAL HOSPITA [place] [address] [facility] LIPASE 5 N N COMMUNTIY COMMUNTIY HOSPITA HOSPITA URNLS DIP 19770 [facility] 5 N N STICK/TAB COMMUNTIY COMMUNTIY LET HOSPITA HOSPITA REAGENT AUTO MICROSCOP Y INJECTION J2270 [facility] MORPHINE 5 N N SULFATE COMMUNTIY COMMUNTIY UP TO [address] [place] [address] [facility] ABDOMEN & 5 N N PELVIS COMMUNTIY COMMUNTIY W/CONTRAS HOSPITA HOSPITA T MATERIAL BLOOD 26197 [facility] COUNT 5 N N COMPLETE COMMUNTIY COMMUNTIY AUTO&AUTO HOSPITA HOSPITA DIFRNTL WBC LOCM Q9967 [facility] [phone] 5 N N MG/ML COMMUNTIY COMMUNTIY IODINE HOSPITA HOSPITA CONCENTRA TION PER ML COMPREHEN 32351 [facility] SIVE 5 N N METABOLIC COMMUNTIY COMMUNTIY PANEL HOSPITA HOSPITA CULTURE 73170 [facility] BACTERIAL 5 N N COMMUNTIY COMMUNTIY QUANTTATI HOSPITA HOSPITA VE COLONY COUNT URINE INJECTION J2550 [facility] 5 N N PROMETHAZ COMMUNTIY COMMUNTIY INE HCL HOSPITA HOSPITA UP TO [address] [place] [address] [facility] AMYLASE 5 N N COMMUNTIY COMMUNTIY HOSPITA HOSPITA THERAPEUT 31988 [facility] IC 5 N N INJECTION COMMUNTIY COMMUNTIY IV PUSH HOSPITA [place] [address] DIANNA PALACIOSON AMYLASE 5 MEM [facility]OS[facility] INC INC COMPREHEN 82048 DIANNA BUSTAMANTE SIVE 5 [facility]OS[facility] METABOLIC INC INC PANEL CULTURE 78277 [facility] BUSTAMANTE BACTERIAL 5 [facility] INC INC QUANTTATI VE COLONY COUNT URINE BLOOD 83976 DIAN[facility] BUSTAMANTE COUNT 5 [facility] COMPLETE INC INC AUTO&AUTO DIFRNTL WBC URNLS DIP 47628 DI[facility] BUSTAMANTE 5 [facility] STICK/TAB INC INC [place] [address] DI[facility] BUSTAMANTE LIPASE 5 [facility] INC INC UNCLASSIF J3490 DIANNA BUSTAMANTE IED DRUGS 5 [facility] INC INC URINE 77558 DIANNA BUSTAMANTE 5 [facility] TEST INC INC VISUAL COLOR CMPRSN METHS URINE 06660 DIANNAEDITH BUSTAMANTE 5 [facility] TEST INC INC VISUAL COLOR CMPRSN METHS UNCLASSIF J3490 DIANNA DIANNA IED DRUGS 5 [facility] INC INC URNLS DIP 46373 DI[facility] BUSTAMANTE 5 [facility] STICK/TAB INC [place] [address] [place] SAM BRANDY ABDOMEN & 5 MEDICAL PELVIS IMAGING W/O ASS CONTRAST MATERIAL UNCLASSIF J3490 DIANNA BUSTAMANTE IED DRUGS 5 [facility] INC INC THER 90468 DIANNA BUSTAMANTE PROPH/DX 5 [facility] NJX IV INC INC PUSH SINGLE/1S T SBST/DRUG THERAPEUT 96254 DIANNA [facility]USTAMANTE IC 5 [facility] INJECTION [place] [address] [place] ABDOMEN & 5 MEDICAL [place] PELVIS IMAGING W/O ASS CONTRAST MATERIAL RADIOLOGI 39885 [place] C 5 MEDICAL WOL[place] EXAMINATI IMAGING ON TIBIA ASS & FIBULA 2 VIEWS Encounters Encounter Start End Date Code Location Performer Type Date OFFICE 81112 Lynn MOSS 7 7 JAVIER ROMAN T VISIT PSC 15 MINUTES EMERGENCY 54081 LÁZARO DEAN DEPT 7 7 PHYSICIAN JR VISIT [facility] HIGH SEVERITY& THREAT [facility]UST DIANNA Viveros 7 [facility] OUTPATIEN INC T EMERGENCY 61552 LÁZARO Viveros 7 PHYSICIAN JAMEELMEN [facility] T VISIT MODERATE SEVERITY EMERGENCY 89082 DIANNA 7 7 [facility] DEPARTMEN INC T VISIT LOW/MODER SEVERITY EMERGENCY 37473 LÁZARO DEAN 7 7 PHYSICIAN [facility] T VISIT HIGH/URGE NT SEVERITY OFFICE 25215 A Kaelyn MOSS 7 7 JAVIER ROMAN T VISIT PSC 25 MINUTES EMERGENCY 80904 DIANNA DEPT 7 7 [facility] VISIT INC HIGH SEVERITY& THREAT [facility] DIANNA - 7 7 [facility] OUTPATIEN INC EMERGENCY 73604 DANNY STEWART DEPT 7 7 SAMANTHA VISIT EMERGENCY HIGH PHYS SEVERITY& THREAT FUN EMERGENCY 07488 LÁZARO WALTON DEPT 7 7 PHYSICIAN U VISIT [facility] HIGH SEVERITY& THREAT [facility] OFFICE 65810 A Kaelyn UBCHANANPATIDAVIDA 7 7 JAVIER ROMAN T VISIT PSC 15 MINUTES OFFICE 10151 DIANNA MOSS 7 7 [facility] T VISIT 5 INC MINUTES HOSPITAL DIANNA - 7 7 [facility] OUTPATIEN INC T OFFICE 83243 A Kaelyn RICK OUTPATIDAVIDA 7 7 JAVIER ROMAN T VISIT PSC 15 MINUTES EMERGENCY 91481 [facility] MARIEL 7 7 SAMANTHA [facility] EMERGENCY T VISIT PHYS HIGH/URGE NT SEVERITY HOSPITAL DIANNA - 7 7 [facility] OUTPATIEN INC T EMERGENCY 71343 DIANNA 7 7 [facility] DEPARTMEN INC T VISIT LOW/MODER SEVERITY EMERGENCY 80212 LÁZARO PATE 7 7 PHYSICIAN [facility] T VISIT HIGH/URGE NT SEVERITY EMERGENCY 13993 DANNY CHAND 7 7 SAMANTHA DEPARTMEN EMERGENCY T VISIT PHYS HIGH/URGE NT SEVERITY EMERGENCY 04980 LÁZARO WALTON DEPT 7 7 PHYSICIAN U VISIT S, [facility] HIGH SEVERITY& THREAT FUNJ EMERGENCY 17948 LÁZARO PATE 7 7 PHYSICIAN DEPARTMEN S, [facility] T VISIT HIGH/URGE NT SEVERITY HOSPITAL [facility] - 6 6 N OUTPATIEN COMMUNTIY T HOSPITA EMERGENCY 24269 [facility] 6 6 SAMANTHA DEPARTMEN EMERGENCY T VISIT PHYS HIGH/URGE NT SEVERITY EMERGENCY 89460 [facility] 6 6 N DEPARTMEN COMMUNTIY T VISIT HOSPITA MODERATE SEVERITY EMERGENCY 99945 [facility] DEPT 6 6 SAMANTHA VISIT EMERGENCY HIGH SERV SEVERITY& THREAT RUST DIANNA - 6 6 MEM H[facility] OUTPATIEN INC T EMERGENCY 90463 DIANNA 6 6 [facility] T VISIT LIMITED/M INOR PROB EMERGENCY 90282 LÁZARO WALTON 6 6 PHYSICIAN U [facility] S, [facility] T VISIT HIGH/URGE NT SEVERITY EMERGENCY 52080 [facility] DEPT 6 6 SAMANTHA SCO VISIT EMERGENCY HIGH PHYS SEVERITY& THREAT [facility] OFFICE 23928 A Kaelyn LUCAS OUTPATIDAVIDA 6 6 JAVIER ROMAN T VISIT PSC 15 MINUTES EMERGENCY 89303 LÁZARO WALTON DEPT 6 6 PHYSICIAN U MARCIA [facility], [facility] SE[facility]& TH[facility]AT [facility] 07709 A Kaelyn RICK OUTPATIEN 6 6 [facility] V[facility]IT [facility] 15 MINUTES OFFICE 34338 A Kaelyn MOSS 6 6 [facility] T VISIT P[facility] 15 MINUTES HOSPITAL DIANNA - 6 6 [facility] INC T OFFICE 18645 A Kaelyn RICK OUTSANTIAGO 6 6 [facility]IER [facility] T VISIT PSC 15 MINUTES OFFICE 95095 A C CONNIE OUTPATIEN 6 6 JAVIER LOGAN T VISIT PSC 15 MINUTES OFFICE 98962 A C MERLINE OUTPATIEN 6 6 J[facility]IER [facility] T VISIT PSC 15 MINUTES HOSPITAL DIANNA - 6 6 [facility] OUTPATIEN [facility] T OFFICE 89184 A C MERLINE OUTPATIEN 6 6 JAVIER [facility] T VISIT PSC 15 MINUTES OFFICE 13575 A C MERLINE OUTPATIEN 6 6 [facility]IER [facility] T VISIT PSC 15 MINUTES OFFICE 05601 A C MERLINE OUTPATIEN 6 6 JAVIER [facility] T VISIT PSC 15 MINUTES EMERGENCY 89472 LÁZARO PATE 6 6 PHYSICIAN [facility] T VISIT HIGH/URGE NT SEVERITY HOSPITAL DIANNA - 6 6 [facility] OUTPATIEN [facility] HOSPITAL DIANNA - 6 6 [facility] OUT[address]EN [facility] T OFFICE 91640 A C LUCIPELA OUTPATIEN 6 6 JAVIER LOGAN T VISIT PSC 25 MINUTES OFFICE 53733 A C MERLINE OUTPATIEN 6 6 JAVIER [facility] T VISIT PSC 15 MINUTES EMERGENCY 56036 [facility] FAUSTINO JAM 6 6 SAMANTHA DEPARTMEN EMERGENCY T VISIT PHYS HIGH/URGE NT SEVERITY EMERGENCY 68650 JOCY SAAVEDRA 6 6 MEDICAL DEPARTMEN SERV T VISIT FOUNDATIO MODERATE N SEVERITY OFFICE 66840 A C MERLINE OUTPATIEN 6 6 JAVIER [facility] T NEW 30 PSC MINUTES EMERGENCY 03767 JOCY TAM 6 6 MEDICAL MAT DEPARTMEN SERV T VISIT FOUNDATIO HIGH/URGE N NT SEVERITY EMERGENCY 77911 [facility] SON BAB 6 6 SAMANTHA DEPARTMEN EMERGENCY T VISIT PHYS HIGH/URGE NT SEVERITY HOSPITAL DIANNA - 6 6 [facility] OUTPATIEN INC T EMERGENCY 90615 LÁZARO PATE DEPT 6 6 PHYSICIAN LYNDA VISIT S, [facility] HIGH SEVERITY& THREAT FUNCJ EMERGENCY 56863 DIANNA 6 6 [facility] DEPARTMEN INC T VISIT HIGH/URGE NT SEVERITY EMERGENCY 41705 LÁZARO WALTON 6 [address] [facility] S, [facility] T VISIT MODERATE SEVERITY EMERGENCY 62169 [facility] ROSALES SCO 6 6 SAMANTHA [facility] EMERGENCY T VISIT SERV HIGH/URGE NT SEVERITY EMERGENCY 42769 LÁZARO PATE 6 6 PHYSICIAN [facility], [facility] T VISIT HIGH/URGE NT SEVERITY EMERGENCY 51972 LÁZARO WALTON 6 [address] [facility] S, [facility] T VISIT MODERATE SEVERITY EMERGENCY 92760 LÁZARO PTAE 6 6 PHYSICIAN [facility], [facility] T VISIT HIGH/URGE NT SEVERITY EMERGENCY 71854 LÁZARO HOWELL 6 6 PHYSICIAN [facility] S, [facility] T VISIT HIGH/URGE NT SEVERITY EMERGENCY 84466 [facility] ISABELAOLD 6 6 SAMANTHA [facility] EMERGENCY T VISIT PHYS HIGH/URGE NT SEVERITY EMERGENCY 16032 LÁZARO CHACON DEPT 6 6 PHYSICIAN FOR VISIT S, [facility] HIGH SEVERITY& THREAT FUNCJ EMERGENCY 78945 LÁZARO PATE 6 6 PHYSICIAN [facility], [facility] T VISIT HIGH/URGE NT SEVERITY EMERGENCY 21598 [facility] ROSAURA 6 6 [facility] EMERGENCY T VISIT PHYS HIGH/URGE NT SEVERITY EMERGENCY 43119 [facility]NA 6 6 [facility] DEPARTMEN INC T VISIT MODERATE SEVERITY HOSPITAL DIANNA - 6 6 [facility] OUTPATIEN INC T EMERGENCY 62042 LÁZARO LYNNE 6 6 [facility]IC[facility] VISIT HIGH/URGE NT SEVERITY EMERGENCY 71234 [facility] DEPT 6 6 SAAMNTHA MON VISIT EMERGENCY HIGH PHYS SEVERITY& THREAT FUN EMERGENCY 89915 [facility] 6 6 N DEPARTMEN COMMUNTIY T VISIT HOSPITA HIGH/URGE NT SEVERITY HOSPITAL [facility] - 6 6 N OUTPATIEN COMMUNTIY T H[facility]PITA [facility] - 5 5 N OUTPATIEN COMMUNTIY T HOSPITA EMERGENCY 70748 [facility] 5 5 SAMANTHA VISIT EMERGENCY HIGH SERV SEVERITY& THREAT FUN EMERGENCY 01583 [facility] 5 5 N DEPARTMEN COMMUNTIY T VISIT HOSPITA HIGH/URGE NT SEVERITY EMERGENCY 27619 [facility] DEPT 5 5 PHYSICIAN LYNDA VISIT S, PLLC HIGH SEVERITY& THREAT [facility] - 5 5 [facility] OUTPATIEN INC T EMERGENCY 76410 [facility] 5 5 [facility] DEPARTMEN INC T VISIT LOW/MODER SEVERITY HOSPITAL [facility] - 5 5 N OUTPATIEN COMMUNTIY T HOSPITA EMERGENCY 32677 [facility] DEPT 5 5 SAMANTHA JERILYN VISIT EMERGENCY HIGH PHYS SEVERITY& THREAT [facility] EMERGENCY 22808 LÁZARO OROZCO 5 5 PHYSICIAN BUTTS DEPARTMEN S, PLLC T VISIT MODERATE SEVERITY HOSPITAL [facility] - 5 5 [facility] OUTPATIEN INC T EMERGENCY 19145 LÁZARO PATE 5 5 PHYSICIAN LYNDA DEPARTMEN S, PLLC T VISIT HIGH/URGE NT SEVERITY EMERGENCY 10389 [facility] 5 5 [facility] DEPARTMEN INC T VISIT LOW/MODER SEVERITY EMERGENCY 72314 [facility] 5 5 [facility] DEPARTMEN INC T VISIT LOW/MODER SEVERITY HOSPITAL [facility] - 5 5 [facility] OUTPATIEN INC T EMERGENCY 89148 LÁZARO WALTON 5 5 PHYSICIAN U MARCIA [facility], [facility] MODERATE SEVERITY EMERGENCY 91795 [facility] 5 SAMANTHA - YORBA VISIT EMERGENCY PAT HIGH PHYS SEVERITY& THREAT [facility] - 5 5 N OUTPATIEN COMMUNTIY T HOSPITA EMERGENCY 73609 [facility] 5 5 N DEPARTMEN COMMUNTIY T VISIT HOSPITA HIGH/URGE NT SEVERITY EMERGENCY 93915 [facility] DEPT 5 5 SAMANTHA JERILYN VISIT EMERGENCY HIGH PHYS SEVERITY& THREAT [facility] - 5 5 N OUTPATIEN COMMUNTIY T HOSPITA EMERGENCY 79487 [facility] 5 5 N DEPARTMEN COMMUNTIY T VISIT HOSPITA HIGH/URGE NT SEVERITY EMERGENCY 04952 [facility] 5 5 [facility] DEPARTMEN INC T VISIT LIMITED/M [facility] - 5 5 [facility] OUTPATIEN INC T EMERGENCY 13091 LÁZARO TELLES 5 5 PHYSICIAN [facility]PARTMEN [facility], [facility] V[facility] MODERATE SEVERITY EMERGENCY 68315 [facility] 5 5 [facility] DEPARTMEN INC T VISIT LOW/MODER SEVERITY EMERGENCY 67163 LÁ[facility] PATE DEPT 5 5 PHYSICIAN LYNDA VISIT S, PLLC HIGH SEVERITY& THREAT [facility] - 5 5 [facility] OUTPATIEN INC T EMERGENCY 44309 [facility] 5 5 [facility] DEPARTMEN INC T VISIT MODERATE SEVERITY HOSPITAL [facility] - 5 5 [facility] OUTPATIEN INC T EMERGENCY 96880 LÁZARO OLVERA 5 5 PHYSICIAN DEPARTMEN S, PLLC T VISIT HIGH/URGE NT SEVERITY EMERGENCY 16173 LÁZARO PATE 5 5 PHYSICIAN LYNDA DEPARTMEN S, [facility] T VISIT HIGH/URGE NT SEVERITY HOSPITAL DIANNA - 5 5 [facility] OUTPATIEN INC T EMERGENCY 35541 DI[facility] 5 5 [facility] DEPARTMEN INC T VISIT LOW/MODER SEVERITY [facility] 55202 JOCY DAVIDSON 5 5 [facility] DE[facility] T VISIT FOUNDATIO HIGH/URGE N NT SEVERITY EMERGENCY 17270 [facility] 5 5 SAMANTHA PET DEPARTMEN EMERGENCY T VISIT PHYS HIGH/URGE NT SEVERITY EMERGENCY 40479 DI[facility] 5 5 [facility] DEPARTMEN INC T VISIT HIGH/URGE NT SEVERITY EMERGENCY 01374 LÁZARO WALTON DEPT 5 5 PHYSICIAN U MARCIA VISIT S, [facility] HIGH SEVERITY& THREAT [facility] DI[facility] - 5 5 [facility] OUTPATIEN [facility] EMERGENCY 29336 [facility] 5 5 N [facility] COMMUNTIY T VISIT HOSPITA HIGH/URGE NT SEVERITY HOSPITAL TAM[facility]E - 5 5 N OUTPATIEN COMMUNTIY T HOSPITA EMERGENCY 54160 [facility] [place] DEPT 5 5 SAMANTHA COREY VISIT EMERGENCY HIGH PHYS SEVERITY& THREAT [facility] - [address] [facility] T EMERGENCY 40949 LÁZARO PATE 5 5 PHYSICIAN LYNDA DEPARTMEN S, [facility] T VISIT HIGH/URGE NT SEVERITY EMERGENCY 95649 DIANNA 5 5 [facility] DEPARTMEN INC T VISIT LOW/MODER SEVERITY HOSPITAL DI[facility] - 5 5 [facility] OUTPATIEN INC T EMERGENCY 26941 DIANNA PATE 5 5 [facility] T VISIT P MODERATE SEVERITY EMERGENCY 81840 DIANNA 5 5 [facility] T VISIT LOW/MODER SEVERITY HOSPITAL DIANNA Chinchilla 5 5 [facility] 99179 DIANNA ARBOLEDA 5 5 [facility] T VISIT P LOW/MODER SEVERITY EMERGENCY 09220 DIANNA 5 5 [facility] T VISIT HIGH/URGE NT SEVERITY EMERGENCY 92244 DIANNA 5 5 [facility] T VISIT LOW/MODER SEVERITY EMERGENCY 37116 DIANNA DEAN, 5 5 [facility] T VISIT P MODERATE SEVERITY HOSPITAL DIANNA Chinchilla 5 5 [facility] T
--- OUTSIDE RECORDS SUMMARY | 2017-03-23 15:43 | External Medical Summary Rpt | CCD ---
Author Author , ROBERTO Calvert ROBERTO Address Unknown Phone [email or web address] Care Team Providers Care Aviation Electrical Technician Name Role Phone A Kaelyn HERRERA MD PSC, Lynn Unavailable Unavailable Kaelyn HERRERA MD PSC LELE MIRANDA Unavailable Unavailable KAEL SOSA MAY, SHEILA MAY Unavailable Unavailable BEINEKE MARCIA, BEINEKE Unavailable Unavailable MARCIA FAUSTINO JAM, FAUSTINO JAM Unavailable Unavailable CONNORS, CONNORS Unavailable Unavailable CONNORS ALL, CONNORS ALL Unavailable Unavailable ILANA MON, Unavailable Unavailable ILANA MON [facility] Unavailable Unavailable SERVICE, [facility] HARRINGTON, HARRINGTON Unavailable Unavailable HARRINGTON [...] BUTTS SANCHEZ JERILYN, SANCHEZ Unavailable Unavailable JERILYN JERMAINE, , JERMAINE, Unavailable Unavailable JR DEAN, JR ELZ, Unavailable Unavailable DEAN, JR ELZ HERLINDA, HERLINDA Unavailable Unavailable HERLINDA LYNDA, HERLINDA Unavailable Unavailable LYNDA RICK, RICK Unavailable Unavailable RICK ARTI, RICK Unavailable Unavailable ARTI GEILE, GEILE Unavailable Unavailable [facility]available [facility], [facility] YULI RHO, YULI Unavailable Unavailable RHO GUNDUMALLA GOP, Unavailable Unavailable GUNDUMALLA GOP JUDD LAURA, JUDD Unavailable Unavailable LAURA DIANNA SCO, Unavailable Unavailable DIANNA SCO [facility] Unavailable Unavailable INC, [facility] Unavailable Unavailable HOSPITAL P, [facility] FELTON KOKI, FELTON KOKI Unavailable Unavailable HUTCHINS III KISHA, Unavailable Unavailable [facility]UTCHINS III [facility] Unavailable Unavailable [facility], [facility] KILPELA, KILPELA Unavailable Unavailable KILPELA JEA, KILPELA Unavailable Unavailable JEA KOSTECORINNA ROBERT, Unavailable Unavailable KOSTELIC ROBERT [facility] SOTINGEANU MARCIA [facility] Un[facility], [facility] Unavailable Unavailable EMERGENCY SERV, [facility] Unavailable Unavailable PHYSICIAN SERVI, [facility] MOTLEY, MOTLEY Unavailable Unavailable MOTLEY RAY, MOTLEY Unavailable Unavailable RAY [facility], Unavailable Unavailable [facility] WALKER FOR, WALKER Unavailable Unavailable FOR WELLS, WELLS Unavailable Unavailable WELLS SCO, [facility] Unavailable Unavailable ROSAURA BRANDY, ROSAURA Unavailable Unavailable BRANDY FIDENCIO, FIDENCIO Unavailable Unavailable Purpose Continuity of Care Document - 10-01-2014 through 2016 Problems Code Diagnosis DOS Provider Status N3001 ACUTE 02-20-2017 A Kaelyn HERRERA CYSTITIS PSC WITH HEMATURIA R109 UNSPECIFIED 02-20-2017 Lynn HERRERA ABDOMINAL PSC PAIN R300 DYSURIA 02-20-2017 Lynn HERRERA MD PSC N200 CALCULUS OF 01-26-2017 [facility] N3090 CYSTITIS 01-26-2017 [facility] UNSPECIFIED PHYSICIANS, WITHOUT PLLC HEMATURIA M5442 LUMBAGO 01-08-2017 ANN[facility] WITH HOME SCIATICA MEDICAL LEFT SIDE EQUIPME [id number] STRAIN 01-08-2017 ANNELIES[facility] MUSCLE HOME FASCIA & MEDICAL TENDON LOW EQUIPME BACK INITIAL I10 ESSENTIAL 12-22-2016 [facility] HYPERTENSIO INC N M545 LOW BACK 12-22-2016 [place] [facility] Z720 TOBACCO USE 12-22-2016 [facility] INC N23 UNSPECIFIED 11-01-2016 [facility] RENAL PHYSICIANS, COLIC PLLC N3000 ACUTE 11-01-2016 [facility] CYSTITIS PHYSICIANS, WITHOUT PLLC HEMATURIA R112 NAUSEA WITH 10-26-2016 [facility] VOMITING ROSY UNSPECIFIED HOLDINGS K921 MELENA 10-25-2016 A Kaelyn HERRERA MD PSC Y01107 UNSPECIFIED 10-25-2016 A Kaelyn HERRERA OVARIAN PSC CYST UNSPECIFIED SIDE N12 TUBULO-INTE 10-22-2016 A Kaelyn HERRERA RST PSC NEPHRITIS NOT SPEC ACUTE/CHRON N390 URINARY 10-22-2016 A Kaelyn HERRERA TRACT PSC INFECTION SITE NOT SPECIFIED H05547 UNSPECIFIED 10-22-2016 A Kaelyn HERRERA OVARIAN PSC CYST RIGHT SIDE R1031 RIGHT LOWER 10-22-2016 A Kaelyn HERRERA QUADRANT PSC PAIN E785 HYPERLIPIDE 10-21-2016 [facility] UNSPECIFIED INC Y35539 PERSONAL 10-21-2016 [facility] URINARY INC TRACT INFECTIONS L42672 PERSONAL 10-21-2016 [facility] URINARY INC CALCULI C59361 ELEVATED 09-18-2016 A Kaelyn HERRERA WHITE BLOOD PSC CELL COUNT UNSPECIFIED R197 DIARRHEA 09-18-2016 A Kaelyn MURPHYIFIED PSC R32 UNSPECIFIED 09-18-2016 A Kaelyn HERRERA URINARY PSC INCONTINENC E R5383 OTHER 09-18-2016 A Kaelyn HERRERA FATIGUE PSC R1012 LEFT UPPER 09-12-2016 [facility] PAIN INC L509 URTICARIA 09-09-2016 [facility] UNSPECIFIED N EMERGENCY PHYS R110 NAUSEA 09-08-2016 [facility] INC R21 RASH AND 09-08-2016 [facility] OTHER PHYSICIANS, NONSPECIFIC PLLC SKIN ERUPTION 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 [facility] CURR [facility] NON-STEROID INC AL&ANTI-INF LAMMATORIES S27290 OTHER LONG 09-08-2016 [facility] TERM [facility] CURRENT INC DRUG THERAPY Z888 ALLERGY 09-08-2016 [facility] STATUS OTH [facility] RX MEDS & INC BIOLOG SUBSTANC STS R1032 LEFT LOWER 08-10-2016 [place] [facility] B86 SCABIES 07-04-2016 [facility] PHYSICIANS, PLLC R030 ELEVATED 06-03-2016 [facility] BLOOD-PRESS N EMERGENCY URE READING SERV WITHOUT DX HTN R0600 DYSPNEA 06-03-2016 [facility] [place] UNSPECIFIED RADIOLOGY R079 CHEST PAIN 06-03-2016 [facility] [place] UNSPECIFIED RADIOLOGY R1013 EPIGASTRIC 06-03-2016 [facility] PAIN N EMERGENCY SERV J40 BRONCHITIS 03-12-2016 A Kaelyn HERRERA NOT PSC SPECIFIED ACUTE OR CHRONIC R05 COUGH 03-12-2016 A Kaelyn HERRERA MD PSC E860 DEHYDRATION 02-22-2016 [facility] PHYSICIANS, PLLC R1011 RIGHT UPPER 02-22-2016 [facility] PHYSICIANS, PAIN PLL R1010 UPPER 02-21-2016 A Kaelyn HERRERA ABDOMINAL PSC PAIN UNSPECIFIED R1110 VOMITING 02-21-2016 A Kaelyn HERRERA UNSPECIFIED PSC E58506 OTHER 02-14-2016 A Kaelyn HERRERA INSTABILITY PSC LEFT ANKLE L47706 PAIN IN 02-14-2016 A Kaelyn HERRERA LEFT KNEE PSC P33298 PAIN IN 02-09-2016 A Kaelyn HERRERA RIGHT LEG PSC G82122 PAIN IN 02-09-2016 A Kaelyn HERRERA LEFT LEG PSC Q73153 EFFUSION 02-07-2016 [place] Y52417 PAIN IN 02-07-2016 [place] M7989 OTHER 02-07-2016 [place] SPECIFIED MEDICAL SOFT TISSUE IMAGING ASS DISORDERS G8929 OTHER 01-26-2016 A Kaelyn HERRERA CHRONIC PSC PAIN N289 DISORDER OF 01-09-2016 [facility] UNSPECIFIED R000 TACHYCARDIA 01-09-2016 [place] [facility] UNSPECIFIED FOUNDATION N209 URINARY 12-31-2015 [facility] CALCULUS PHYSICIANS, UNSPECIFIED PLL C94882 PAIN IN 11-10-2015 [place] C49650N SPRAIN 11-10-2015 [facility] UNSPEC PHYSICIANS, LIGAMENT PLL RIGHT ANKLE INITIAL ENC W29028J UNSPECIFIED 11-10-2015 [place] INJURY [facility]ICAL RIGHT ANKLE IMAGING ASS INITIAL ENCOUNTER R319 HEMATURIA 10-07-2015 [facility] UNSPECIFIED PHYSICIANS, PLLC N8320 UNSPECIFIED 08-05-2015 [facility] OVARIAN N EMERGENCY CYSTS PHYS N8329 OTHER 08-05-2015 [facility] [place] OVARIAN RADIOLOGY CYSTS R1030 LOWER 08-04-2015 [facility] ABDOMINAL PHYSICIANS, PAIN PLLC UNSPECIFIED M549 DORSALGIA 06-26-2015 [facility] UNSPECIFIED PHYSICIANS, PLLC Z960 PRESENCE OF 06-16-2015 [facility] IM[facility] HOSPITA N201 CALCULUS OF 05-20-2015 [facility] URETER PHYSICIANS, PLLC E669 OBESITY 05-17-2015 [facility] UNSPECIFIED N PHYSICIAN SERVI N132 HYDRONEPHRO 05-17-2015 [facility] SIS W/RENAL N PHYSICIAN & URETRL SERVI CALCULOUS OBST N1330 UNSPECIFIED 05-17-2015 [facility] ALPESH HYDRONEPHRO SIS R6510 SYS INFLM 05-17-2015 [facility] RSPN SYND N PHYSICIAN NON-INF SERVI ORIG NO AC ORGN DYSF Z6841 BODY MASS 05-16-2015 [facility] BMI COMMUNTIY 40.0-44.9 HOSPITA ADULT J208 ACUTE 04-28-2015 [facility] BRONCHITIS PHYSICIANS, DUE TO PLLC OTHER SPEC ORGANISMS K859 ACUTE 04-05-2015 [facility] PANCREATITI N EMERGENCY S PHYS UNSPECIFIED R9431 ABNORMAL 04-05-2015 [facility] IOGRAM HOSPITA 5920 CALCULUS OF 02-26-2015 [facility] [place] [facility] 5990 URINARY 02-26-2015 [facility] TRACT N EMERGENCY INFECTION PHYS SITE NOT SPECIFIED 22057 NAUSEA 02-26-2015 [facility] HOSPITA 99585 DIARRHEA 02-26-2015 [facility] 35806 ABDOMINAL 02-26-2015 [facility] PAIN RIGHT N EMERGENCY LOWER PHYS QUADRANT V1301 PERSONAL 02-26-2015 [facility] HISTORY OF COMMUNTIY URINARY HOSPITA CALCULI V1582 PERS HX 02-26-2015 [facility] TOBACCO USE COMMUNTIY PRESENTING HOSPITA [facility] 4019 UNSPECIFIED 02-19-2015 [facility] ESSENTIAL [facility] HYPERTENSIO INC N 5275 SIALOLITHIA 02-19-2015 [facility] SIS PHYSICIANS, PLLC 6202 OTHER AND 02-14-2015 [facility] UNSPECIFIED PHYSICIANS, OVARIAN PLLC CYST 16083 ABDOMINAL 12-11-2014 [place] [facility] OTHER MEDICAL SPECIFIED IMAGING ASS SITE 43619 ABDOMINAL 12-10-2014 [facility] PAIN, LEFT [facility] LOWER INC QUADRANT 0419 BACTERIAL 11-26-2014 [place] [facility] UNSPECIFIED FOUNDATION CCE & UNS SITE 78841 UNSPECIFIED 11-26-2014 [facility] PYELONEPHRI TIS V4579 OTHER 11-26-2014 [facility] ABSENCE OF ORGAN 16592 ABDOMINAL 11-21-2014 [facility] [place] PAIN, RADIOLOGY UNSPECIFIED SITE 77457 ABDOMINAL 11-20-2014 [facility] PAIN, N EMERGENCY PERIUMBILIC PHYS 43474 ABDOMINAL 11-16-2014 [place] PA[facility], MEDICAL EPIGASTRIC IMAGING ASS 84233 NAUSEA WITH 11-14-2014 [facility]TI[facility] HOSPITA 5589 OTH&UNSPEC 10-31-2014 [facility] NONINFECTIO PHYSICIANS, [facility] ITIS&COLITI S 7242 LUMBAGO 10-19-2014 [facility] P 10742 ABDOMINAL 10-19-2014 [employer] PAIN, LEFT [facility] P QUADRANT 5921 CALCULUS OF 10-01-2014 [facility] 7295 PAIN IN 10-01-2014 [place] SOFT MEDICAL TISSUES OF IMAGING ASS LIMB 8449 SPRAIN&STRA 10-01-2014 [facility] IN OF [facility] UNSPECIFIED INC SITE OF KNEE&LEG 9597 INJURY 10-01-2014 [place] OTHER&UNSPE MEDICAL CIFIED KNEE IMAGING ASS LEG [...] NT E HI AN A IN C KS 65 09 10 24 6 00 EA [...] 5 14 PH CE AR TA MA [place] CY NO PH OF EN CY NT [...] 5 68 PH CE AR TA MA [place] CY NO PH OF EN CY NT [...] .[address] ti XE 70 8- 1- 00 00 SI ve TI 15 20 20 49 DE NE 73 17 17 47 0 86 PH HC AR L MA 40 CY MG OF CY TA NT BL HI ET AN A IN C [place] 00 07 08 30 30 00 EA [...] 5 89 PH CE AR TA MA [place] CY NO PH OF EN CY NT 5- HI 32 AN 5 A IN C CI 16 05 06 20 10 00 EA Ac KS 71 -1 -[address] ti [...] 5 33 PH CE AR TA MA [place] CY NO PH OF EN CY NT [...] NT E HI AN A IN C NI 16 [...] HI 0 AN MG A IN C KS 59 04 04 10 5 00 EA [...] 48 DE ZA 11 17 17 23 KS 0 48 PH IN AR E MA 10 CY MG OF CY TA NT BL HI ET AN A IN C KS 65 04 04 60 30 00 EA [...] 12 01 14 7 00 EA Ac KS 71 -3 -[address] ti [...] 47 DE RA 30 16 17 07 [place] 5 45 PH DE AR MA 10 [...] Procedure DOS Code Location Performer Comment URINLS 83045 A C KILPELA DIP 7 JAVIER ROMAN STICK/TAB PSC LET REAGNT NON-AUTO MICRSCPY RADEX 72537 [place] ABDOMEN 1 7 MEDICAL IMAGING ANTEROPOS ASS TERIOR VIEW LUMB L0627 ANNELIESE ANNELIESE ORTHOSIS 7 HOME HOME SAGIT MEDICAL MEDICAL CNTRL EQUIPME EQUIPME RIGID A&P PANEL PREFAB UNCLASSIF J3490 [facility] IED DRUGS 7 [facility] INC INC URINE 90476 [facility]USTAM[facility]TE 7 [facility] TEST INC INC VISUAL COLOR CMPRSN METHS RADEX 95368 [facility] SPINE 7 [facility] LUMBOSACR INC INC AL MINIMUM 4 VIEWS CULTURE 77091 LAB [facility] LAB JANNA BACTERIAL 7 ROSY ROSY HOLDINGS HOLDINGS QUANTTATI VE COLONY COUNT URINE URINLS 25314 A C ANNALA DIP 7 JAVIER ROMAN STICK/TAB PSC LET REAGNT NON-AUTO MICRSCPY OBSERVATI 48293 A C NEELAM ON CARE 7 JAVIER ROMAN DISCHARGE PSC MANAGEMEN T UNCLASSIF J3490 [facility] IED DRUGS 7 [facility] INC INC BLOOD 12619 [facility] COUNT 7 [facility] COMPLETE INC INC AUTO&AUTO DIFRNTL WBC BLOOD 22197 [facility] COUNT 7 [facility] COMPLETE INC INC AUTO&AUTO DIFRNTL WBC BASIC 90700 [facility] METABOLIC 7 [facility] PANEL INC INC CALCIUM TOTAL UNCLASSIF J3490 [facility] IED DRUGS 7 [facility] INC INC INITIAL 82194 A Kaelyn RICHTER OBSERVATI 7 JAVIER ROMAN ON PSC CARE/DAY 70 MINUTES [facility] G0378 [facility] OBSERVATI 7 [facility] ON INC INC SERVICE PER [facility] G0378 [facility] OBSERVATI 7 [facility] ON INC INC SERVICE PER HOUR UNCLASSIF J3490 [facility] IED DRUGS 7 MEM HOS[facility] INC INC CULTURE 03615 [facility] B[facility] BACTERIAL 7 [facility] INC INC QUANTTATI VE COLONY COUNT URINE COMPREHEN 27294 [facility] SIVE 7 [facility] METABOLIC INC INC PANEL URNLS DIP 74548 [facility]TE 7 [facility] STICK/TAB INC INC LET REAGENT AUTO MICROSCOP Y BLOOD 86160 [facility] COUNT 7 [facility] COMPLETE INC INC AUTO&AUTO DIFRNTL WBC GROUND A0425 [facility] PER SERVICE SERVICE STATUTE MILE AMBULANCE A0429 [facility] SERVICE 7 AMBULANCE AMBULANCE BLS [place] [address] [facility] INFUSION 7 [facility] THERAPY/P INC INC ROPHYLAXI S /DX 1ST TO 1 HR THERAPEUT 52423 [facility] IC 7 [facility] INJECTION [place] [address] [facility] TOUL ABDOMEN & 7 RADIOLOGY PELVIS W/[place] [address] [place] ABDOMEN & 7 MEDICAL PELVIS IMAGING W/O ASS CONTRAST MATERIAL URINLS 34619 A C RICK DIP 7 JAVIER ROMAN STICK/TAB PSC LET REAGNT NON-AUTO MICRSCPY UNCLASSIF J3490 [facility] IED DRUGS 7 [facility] HOS[facility] INC INC URINLS 99148 A C RICK DIP 7 JAVIER ROMAN STICK/TAB PSC LET REAGNT NON-AUTO MICRSCPY COLLECTIO 50367 A Kaelyn RICK N VENOUS 7 JAVIER ROMAN BLOOD PSC VENIPUNCT URE BLOOD 18924 A C MERLINE COUNT 7 JAVIER ROMAN COMPLETE PSC AUTO&[place] [address] [facility] [place] ABDOMEN & 7 RADIOLOGY PELVIS W/O CONTRAST MATERIAL UNCLASSIF J3490 [facility] IED DRUGS 7 [facility] H[facility] INC INC CULTURE 96660 [facility] BACTERIAL 7 [facility] INC INC QUANTTATI VE COLONY COUNT URINE URNLS DIP 36380 [facility]USTAM[facility]TE 7 [facility] STICK/TAB INC [place] [address] [place] ABDOMEN & 7 MEDICAL PELVIS IMAGING W/O ASS CONTRAST MATERIAL URNLS DIP 81035 [facility] 6 N N STICK/TAB COMMUNTIY COMMUNTIY LET HOSPITA HOSPITA REAGENT AUTO MICROSCOP Y CULTURE 77919 [facility] BACTERIAL 6 N N COMMUNTIY COMMUNTIY QUANTTATI HOSPITA HOSPITA VE COLONY COUNT URINE THERAPEUT 00805 [facility] IC 6 N N PROPHYLAC COMMUNTIY COMMUNTIY TIC/DX HOSPITA HOSPITA INJECTION SUBQ/IM RADIOLOGI 96397 [facility] [place] FIDENCIO C 6 RADIOLOGY EXAMINATI ON CHEST SINGLE VIEW FRONTAL ECG 07042 [facility] ROUTINE 6 SAMANTHA ECG EMERGENCY W/LEAST SERV 12 LDS I&R ONLY URNLS DIP 44746 [facility]TE 6 [facility] H[facility] STICK/TAB INC INC LET REAGENT AUTO MICROSCOP Y CULTURE 48368 [facility] BACTERIAL 6 [facility]OS[facility] INC INC QUANTTATI VE COLONY COUNT URINE UNCLASSIF J3490 [facility] IED DRUGS 6 MEM H[facility]OS[facility] INC INC URINE 76745 [facility]USTAM[facility]TE 6 [facility] TEST INC [place] [address] [facility] [place] BROWN ABDOMEN & 6 RADIOLOGY III KISHA PELVIS W/O CONTRAST MATERIAL OBSERVATI 97153 Lynn RICHTER SHAYY ON/INPATI 6 JAVIER ROMAN ENT [facility] [place] [address] [place] [address] [facility] JULESKAYLA ABDOMEN & 6 MEDICAL WOLFGANG PELVIS IMAGING W/O ASS CONTRST 1/> BODY RE URINLS 13926 A Kaelyn RICK DIP 6 [facility]IER [facility] STICK/TAB PSC LET REAGNT NON-AUTO MICRSCPY INJECTION J2550 A Kaelyn RICK 6 [facility]IER [facility] PROMETHAZ PSC INE HCL UP TO 50 MG THERAPEUT 95434 A Kaelyn RICK IC 6 JAVIER [facility] PROPHYLAC PSC TIC/DX INJECTION SUBQ/[place] [address] [facility] AMYLASE 6 [facility] INC INC BLOOD 87369 [facility] COUNT 6 [facility] COMPLETE INC INC AUTO&[place] [address] [facility] B[facility] LIPASE 6 [facility] INC INC COMPREHEN 42254 [facility] SIVE 6 [facility] H[facility] METABOLIC INC INC PANEL COLLECTIO 23812 [facility] N VENOUS 6 [facility] H[facility] BLOOD INC INC VENIPUNCT URE URINLS 22494 A Kaelyn RICK DIP 6 JAVIER [facility] STICK/TAB PSC LET REAGNT NON-AUTO MICRSCPY MRI ANY 27894 [facility] JT LOWER 6 [facility] EXTREM [place] [address] [facility] RETROPERI 6 [facility] H[facility] TONEAL INC [place] W/[place] [address] [place] [facility] ALL RETROPERI 6 MEDICAL TONEAL IMAGING REAL TIME ASS W/IMAGE LIMITED BLOOD 74407 A Kaelyn RICK COUNT 6 JAVIER [facility] COMPLETE PSC AUTO&AUTO DIFRNTL WBC URINLS 17213 A Kaelyn RICK DIP 6 JAVIER [facility] STICK/TAB PSC LET REAGNT NON-AUTO MICRSCPY INJECTION J0696 A Kaelyn RICK 6 JAVIER CHI CEFTRIAXO PSC NE SODIUM PER 250 MG THERAPEUT 06633 A Kaelyn RICK IC 6 JAVIER [facility]I PROPHYLAC PSC TIC/DX INJECTION SUBQ/IM THERAPEUT 26694 A Kaelyn RICK IC 6 JAVIER CHI PROPHYLAC PSC TIC/DX INJECTION SUBQ/IM INJECTION J0696 A Kaelyn RICK 6 JAVIER CHI CEFTRIAXO PSC NE SODIUM PER 250 MG URINLS 32684 A C RICK DIP 6 JAVIER [facility]I STICK/TAB PSC LET REAGNT NON-AUTO MICRSCPY BLOOD 55840 A C MERLINE COUNT 6 JAVIER CHI COMPLETE PSC AUTO&AUTO DIFRNTL WBC URINLS 50201 A C RICK DIP 6 JAVIER [facility]I STICK/TAB PSC LET REAGNT NON-AUTO MICRSCPY CULTURE 90687 LAB [facility] LAB JANNA BCT 6 ROSY ROSY ISOL&PRSM HOLDINGS HOLDINGS PTV ID ISOLATE EA URINE CULTURE 76764 [facility] LAB JANNA BACTERIAL 6 ROSY ROSY HOLDINGS HOLDINGS QUANTTATI VE COLONY COUNT URINE SUSCEPTIB 85536 [facility] LAB JANNA LTY STDY 6 [facility] ANTIMICRB HOLDINGS HOLDINGS IAL MICRO/AGA R DILUTJ INJECTION J0696 A C RICK 6 JAVIER CHI CEFTRIAXO PSC NE SODIUM PER 250 MG CUL BACT 82561 LAB [facility] LAB JANNA AEROBIC 6 [facility] ADDL HOLDINGS HOLDINGS METHS DEFINITIV E EA ISOL INJECTION J2550 A C A C 6 JAVIER HERRERA MD PROMETHAZ PSC PSC INE HCL UP TO 50 MG THERAPEUT 63626 A C MERLINE IC 6 JAVIER CHI PROPHYLAC PSC TIC/DX INJECTION SUBQ/[place] [address] [facility] ALL ABDOMEN & 6 MEDICAL PELVIS IMAGING W/O ASS CONTRAST MATERIAL RADIOLOGI 66788 [place] C 6 MEDICAL WOLFGANG EXAMINATI IMAGING ON ANKLE ASS 2 VIEWS RADEX 67880 [facility] ALL SPINE 6 MEDICAL LUMBOSACR IMAGING AL 2/3 ASS VIEWS RADEX 42325 [facility] SPINE 6 [facility] LUMBOSACR INC INC AL MINIMUM 4 VIEWS RADEX 84019 [facility] ANKLE 6 [facility] COMPLETE INC INC MINIMUM 3 VIEWS URINLS 41111 A C KILPELA DIP 6 JAVIER ROMAN JEA STICK/TAB PSC LET REAGNT NON-AUTO MICRSCPY RADEX 02614 [place] MERHAR FOOT 6 MEDICAL GAR COMPLETE SERV MINIMUM 3 FOUNDATIO VIEWS N RADEX 22345 [place] MERHAR ANKLE 6 MEDICAL GAR COMPLETE SERV MINIMUM [address] [place] [address] [facility] [place] JAM ABDOMEN & 6 RADIOLOGY PELVIS W/O CONTRAST MATERIAL URINLS 03273 A C RICK DIP 6 JAVIER ROMAN ARTI STICK/TAB P[place] [address] JOCY PAWPAULA RETROPERI 6 MEDICAL BAR TONEAL SERV REAL TIME FOUNDATIO W/[place] [address] [facility] [place] SCALF RITO ABDOMEN & 6 RADIOLOGY PELVIS W/[place] [address] [facility] BEINEMORAIMA ABDOMEN & 6 MEDICAL MARCIA PELVIS IMAGING W/O ASS CONTRAST MATERIAL COLLECTIO 64928 [facility] N VENOUS 6 [facility] BLOOD INC INC VENIPUNCT URE COMPREHEN 37768 [facility] SIVE 6 [facility] METABOLIC INC INC PANEL URNLS DIP 42435 [facility] BUSTAMANTE 6 [facility] STICK/TAB INC INC LET REAGENT AUTO MICROSCOP Y BLOOD 45396 [facility] COUNT 6 [facility] COMPLETE INC INC AUTO&AUTO DIFRNTL WBC UNCLASSIF J3490 [facility] IED DRUGS 6 [facility] INC INC CULTURE 46357 [facility] BACTERIAL 6 [facility] INC INC QUANTTATI VE COLONY COUNT URINE THER 61802 [facility] BUSTAM[facility] PROPH/DX 6 [facility] NJX IV INC INC PUSH SINGLE/1S T SBST/DRUG THERAPEUT 42833 [facility] IC 6 [facility] INJECTION [place] [address] [place] ABDOMEN & 6 MEDICAL WOLFGANG PELVIS IMAGING W/O ASS CONTRAST MATERIAL RADIOLOGI 76555 [place] CONNORS ALL C 6 MEDICAL EXAMINATI IMAGING ON [place] [address] [place] [address] ROBERTA YOUNG ABDOMEN & 6 MEDICAL MARCIA PELVIS IMAGING W/[place] [address] [facility] [place] YULI ABDOMEN & 6 RADIOLOGY RHO PELVIS W/[place] [address] [facility] [place] FU ABDOMEN & 6 RADIOLOGY CAR PELVIS W/O CONTRAST MATERIAL BASIC 13456 DIANNA BUSTAMANTE METABOLIC 6 [facility] PANEL INC INC CALCIUM TOTAL COLLECTIO 62726 [facility] BUSTAMANTE N VENOUS 6 [facility] BLOOD INC INC VENIPUNCT URE BLOOD 37071 [facility]UST[facility]ANTE COUNT 6 [facility] COMPLETE INC INC AUTO&AUTO DIFRNTL WBC UNCLASSIF J3490 [facility] BUSTAMANTE IED DRUGS 6 [facility] INC INC THERAPEUT 37760 [facility] BUSTAM[facility] IC 6 [facility] PROPHYLAC INC INC TIC/DX INJECTION SUBQ/IM THERAPEUT 10613 [facility] IC 6 N N INJECTION COMMUNTIY COMMUNTIY IV PUSH HOSPITA HOSPITA EACH [place] CULTURE 40664 [facility] BACTERIAL 6 N N COMMUNTIY COMMUNTIY QUANTTATI HOSPITA HOSPITA VE COLONY COUNT URINE CUL BACT 73651 [facility] AEROBIC 6 N N ADDL COMMUNTIY COMMUNTIY METHS HOSPITA HOSPITA DEFINITIV E EA ISOL SUSCEPTIB 64568 [facility] LTY STDY 6 N N ANTIMICRB COMMUNTIY COMMUNTIY IAL HOSPITA HOSPITA MICRO/AGA R DILUTJ URINE 39907 [facility] 6 N N TEST COMMUNTIY COMMUNTIY VISUAL HOSPITA HOSPITA COLOR CMPRSN METHS BLOOD 92838 [facility] COUNT 6 N N COMPLETE COMMUNTIY COMMUNTIY AUTO&[place] [address] [facility] INFUSION 6 N N THERAPY/P COMMUNTIY COMMUNTIY ROPHYLAXI HOSPITA HOSPITA S /DX 1ST TO 1 HR URNLS DIP 30514 [facility] 6 N N STICK/TAB COMMUNTIY COMMUNTIY LET HOSPITA [place] [address] [facility] [place] ABDOMEN & 6 RADIOLOGY RAY PELVIS W/O CONTRAST MATERIAL COLLECTIO 85032 [facility] N VENOUS 6 N N BLOOD COMMUNTIY COMMUNTIY VENIPUNCT HOSPITA HOSPITA URE COMPREHEN 99636 [facility] SIVE 6 N N METABOLIC COMMUNTIY COMM[place]TI[place] [address] [facility] INFUSION 6 N N HYDRATION COMMUNTIY COMMUNTIY E[place] [address] [facility] INFUSION 6 N N THER COMMUNTIY COMMUNTIY PROPH HOSPITA HOSPITA ADDL SEQUENTIA L [place] 1 [place] [address] [facility] INFUSION 5 N N HYDRATION COMMUNTIY COMMUNTIY EACH HOSPITA HOSPITA ADDITIONA L HOUR COMPREHEN 34210 [facility] SIVE 5 N N METABOLIC COMMUNTIY COMMUNTIY PANEL HOSPITA HOSPITA THER 39039 [facility] PROPH/DX 5 N N NJX EA COMMUNTIY COMMUNTIY SEQL IV HOSPITA HOSPITA PUSH SBST/DRUG FAC URNLS DIP 58956 [facility] 5 N N STICK/TAB COMMUNTIY COMMUNTIY LET HOSPITA HOSPITA [place] [address] [facility] LIPASE 5 N N COMMUNTIY COMMUNTIY HOSPITA HOSPITA BLOOD 02381 [facility] COUNT 5 N N COMPLETE COMMUNTIY COMMUNTIY AUTO&AUTO HOSPITA HOSPITA DIFRNTL WBC THERAPEUT 67561 [facility] IC 5 N N INJECTION COMMUNTIY COMMUNTIY IV [place] [address] [facility] INFUSION 5 N N THERAPY/P COMMUNTIY COMMUNTIY ROPHYLAXI HOSPITA HOSPITA S /DX 1ST TO 1 HR INJECTION J2550 [facility] 5 N N PROMETHAZ COMMUNTIY COMMUNTIY INE HCL HOSPITA HOSPITA UP TO 50 MG COLLECTIO 69352 [facility] N VENOUS 5 N N BLOOD COMMUNTIY COMMUNTIY VENIPUNCT HOSPITA HOSPITA URE INJECTION J2270 [facility] MORPHINE 5 N N SULFATE COMMUNTIY COMMUNTIY UP TO 10 HOSPITA HOSPITA MG CULTURE 71943 [facility] BACTERIAL 5 N N COMMUNTIY COMMUNTIY QUANTTATI HOSPITA HOSPITA VE COLONY COUNT URINE RADEX 31251 [facility] BUST[facility]TE ABDOMEN 1 5 [facility] INC INC ANTEROPOS TERIOR VIEW COLLECTIO 73569 [facility] N VENOUS 5 N N BLOOD COMMUNTIY COMMUNTIY VENIPUNCT HOSPITA HOSPITA URE THER 81685 [facility] PROPH/DX 5 N N NJX EA COMMUNTIY COMMUNTIY SEQL IV HOSPITA HOSPITA PUSH SBST/DRUG FAC BASIC 99603 [facility] METABOLIC 5 N N PANEL COMMUNTIY COMMUNTIY CALCIUM HOSPITA HOSPITA TOTAL BLOOD 11593 [facility] COUNT 5 N N HEMOGLOBI COMMUNTIY COMMUNTIY N HOSPITA HOSPITA PROTHROMB 80576 [facility] IN TIME 5 N N COMMUNTIY COMMUNTIY HOSPITA HOSPITA INJECTION J1100 [facility] 5 N N DEXAMETHO COMMUNTIY COMMUNTIY SONE HOSPITA HOSPITA SODIUM PHOSPHATE 1 MG INJECTION J1170 [facility] 5 N N HYDROMORP COMMUNTIY COMMUNTIY RON UP HOSPITA HOSPITA TO 4 MG INJECTION J2001 [facility] 5 N N LIDOCAINE COMMUNTIY COMMUNTIY HCL HOSPITA HOSPITA INTRAVENO US INFUS 10 MG INJECTION J2704 [facility] PROPOFOL 5 N N 10 MG COMMUNTIY COMMUNTIY HOSPITA HOSPITA OBSERVATI 48471 [facility] ON CARE 5 SAMANTHA A GOP DISCHARGE PHYSICIAN SERVI MANAGEMEN T BLOOD 31497 [facility] COUNT 5 N N HEMATOCRI COMMUNTIY COMMUNTIY T HOSPITA HOSPITA INJECTION J2550 [facility] 5 N N PROMETHAZ COMMUNTIY COMMUNTIY INE HCL HOSPITA HOSPITA UP TO 50 MG INJ J2543 [facility] PIPERACIL 5 N N MEGHAN COMMUNTIY COMMUNTIY SOD/TAZOB HOSPITA HOSPITA ACTAM SOD 1 G/0.125 G INJ J2543 [facility] PIPERACIL 5 N N MEGHAN COMMUNTIY COMMUNTIY SOD/TAZOB HOSPITA HOSPITA ACTAM SOD 1 G/0.125 G INJECTION J2550 [facility] 5 N N PROMETHAZ COMMUNTIY COMMUNTIY INE HCL HOSPITA HOSPITA UP TO 50 MG DILATION 68902 [facility] NEPHROSTO 5 ALPESH ALPESH MY/URETER /URETHRA RS&I URINE 99345 [facility] 5 N N TEST COMMUNTIY COMMUNTIY VISUAL HOSPITA HOSPITA COLOR CMPRSN METHS SBSQ 29547 [facility] OBSERVATI 5 SAMANTHA A GOP ON PHYSICIAN CARE/DAY SERVI 35 MINUTES CYSTO 34528 [facility] W/INSERT 5 N N URETERAL COMMUNTIY COMMUNTIY STENT HOSPITA HOSPITA CULTURE 87618 [facility] BACTERIAL 5 N N COMMUNTIY COMMUNTIY QUANTTATI HOSPITA HOSPITA VE COLONY COUNT URINE INFUSION J7030 [facility] NORMAL 5 N N SALINE COMMUNTIY COMMUNTIY SOLUTION HOSPITA HOSPITA 1000 CC INJECTION J0696 [facility] 5 N N CEFTRIAXO COMMUNTIY COMMUNTIY NE SODIUM HOSPITA HOSPITA PER 250 MG ANES 84467 [facility] 5 ANESTHESI JERILYN FRAGMNTJ A GROUP MANJ&/RMV PS L URETERAL CALCULUS GUIDE C1769 [facility] WIRE 5 N N COMMUNTIY COMMUNTIY HOSPITA HOSPITA STENT C2617 [facility] NON-COR 5 N N TEMPORARY COMMUNTIY COMMUNTIY WITHOUT HOSPITA HOSPITA DELIVERY SYSTEM RINGERS J7120 [facility] LACTATE 5 N N INFUSION COMMUNTIY COMMUNTIY UP TO HOSPITA HOSPITA 1000 CC CYSTO 88020 [facility] W/URETERO 5 N N SCOPY COMMUNTIY COMMUNTIY W/RMVL/[place] [address] [facility] [place] SCALF RITO ABDOMEN & 5 RADIOLOGY PELVIS W/O CONTRAST MATERIAL INJECTION J1170 [facility] 5 N N HYDROMORP COMMUNTIY COMMUNTIY RON UP HOSPITA HOSPITA TO 4 MG CALCULUS 68633 [facility] QUANTITAT 5 N N DEVYN COMMUNTIY [place] [address] [facility] INFUSION 5 N N THERAPY/P COMMUNTIY COMMUNTIY ROPHYLAXI HOSPITA HOSPITA S /DX 1ST TO 1 HR BLOOD 94678 [facility] COUNT 5 N N COMPLETE COMMUNTIY COMMUNTIY AUTO&AUTO HOSPITA HOSPITA DIFRNTL WBC TOBACCO 88623 [facility] USE 5 N N CESSATION COMMUNTIY COMMUNTIY HOSPITA HOSPITA INTERMEDI ATE 3-10 MINUTES COMPREHEN 08208 [facility] SIVE 5 N N METABOLIC COMMUNTIY COMMUNTIY PANEL HOSPITA HOSPITA THER 57819 [facility] PROPH/DX 5 N N NJX EA COMMUNTIY COMMUNTIY SEQL IV HOSPITA HOSPITA PUSH SBST/DRUG FAC COLLECTIO 17563 [facility] N VENOUS 5 N N BLOOD COMMUNTIY COMMUNTIY VENIPUNCT HOSPITA HOSPITA URE URNLS DIP 32947 [facility] 5 N N STICK/TAB COMMUNTIY COMMUNTIY LET HOSPITA HOSPITA REAGENT AUTO MICROSCOP Y URNLS DIP 26772 [facility] 5 N N STICK/TAB COMMUNTIY COMMUNTIY LET HOSPITA HOSPITA REAGENT AUTO MICROSCOP Y THER 27659 [facility] PROPH/DX 5 N N NJX EA COMMUNTIY COMMUNTIY SEQL IV HOSPITA HOSPITA PUSH SBST/DRUG FAC COMPREHEN 11897 [facility] SIVE 5 N N METABOLIC COMMUNTI[place] [address] [facility] ABDOMEN & 5 [facility] PELVIS IMAGING W/O ASS CONTRAST MATERIAL THERAPEUT 42549 [facility] IC 5 N N INJECTION COMMUNTIY COMMUNTIY IV PUSH HOSPITA HOSPITA EACH NEW DRUG BLOOD 94233 [facility] COUNT 5 N N COMPLETE COMMUNTIY COMMUNTIY AUTO&AUTO HOSPITA HOSPITA DIFRNTL WBC INTRODUCT 59209 [facility] ION 5 SAMANTHA JERILYN NEEDLE/IN EMERGENCY TRACATHET PHYS ER VEIN INJECTION J1170 [facility] 5 N N HYDROMORP COMMUNTIY COMMUNTIY RON UP HOSPITA HOSPITA TO 4 MG THROMBOPL 61616 [facility] ASTIN 5 N N TIME COMMUNTIY COMMUNTIY PARTIAL HOSPITA HOSPITA PLASMA/WH OLE BLOOD CULTURE 55587 [facility] BACTERIAL 5 N N BLOOD COMMUNTIY COMMUNTIY AEROBIC HOSPITA HOSPITA W/ID ISOLATES CULTURE 04251 [facility] BACTERIAL 5 N N COMMUNTIY COMMUNTIY QUANTTATI HOSPITA HOSPITA VE COLONY COUNT URINE INJECTION J2270 [facility] MORPHINE 5 N N SULFATE COMMUNTIY COMMUNTIY UP TO 10 HOSPITA HOSPITA MG INFUSION J7030 [facility] NORMAL 5 N N SALINE COMMUNTIY COMMUNTIY SOLUTION HOSPITA HOSPITA 1000 CC COLLECTIO 22223 [facility] N VENOUS 5 N N BLOOD COMMUNTIY COMMUNTIY VENIPUNCT HOSPITA HOSPITA [facility] G0378 [facility] OBSERVATI 5 N N ON COMMUNTIY COMMUNTIY SERVICE HOSPITA HOSPITA PER HOUR INITIAL 24973 [facility] OBSERVATI 5 SAMANTHA A GOP ON PHYSICIAN CARE/DAY SERVI 70 MINUTES INJ J2543 [facility] PIPERACIL 5 N N MEGHAN COMMUNTIY COMMUNTIY SOD/TAZOB HOSPITA HOSPITA ACTAM SOD 1 G/0.125 G INJECTION J2550 [facility] 5 N N PROMETHAZ COMMUNTIY COMMUNTIY INE HCL HOSPITA HOSPITA UP TO 50 MG THERAPEUT 87441 [facility] IC 5 N N PROPHYLAC COMMUNTIY COMMUNTIY TIC/DX HOSPITA HOSPITA INJECTION SUBQ/IM URINE 20988 [facility] 5 [facility] TEST INC INC VISUAL COLOR CMPRSN METHS URNLS DIP 68175 [facility] 5 [facility] STICK/TAB INC INC LET REAGENT AUTO MICROSCOP Y CULTURE 71795 [facility] B[facility] BACTERIAL 5 [facility] INC INC QUANTTATI VE COLONY COUNT URINE UNCLASSIF J3490 [facility] B[facility] IED DRUGS 5 [facility] INC INC INFUSION J7030 [facility] NORMAL 5 N N SALINE COMMUNTIY COMMUNTIY SOLUTION HOSPITA HOSPITA 1000 CC INJECTION J2270 [facility] MORPHINE 5 N N SULFATE COMMUNTIY COMMUNTIY UP TO 10 HOSPITA HOSPITA MG CULTURE 27818 [facility] BACTERIAL 5 N N COMMUNTIY COMMUNTIY QUANTTATI HOSPITA HOSPITA VE COLONY COUNT URINE URNLS DIP 03730 [facility] 5 N N STICK/TAB COMMUNTIY COMMUNTIY LET HOSPITA HOSPITA REAGENT AUTO MICROSCOP Y COLLECTIO 07307 [facility] N VENOUS 5 N N BLOOD COMMUNTIY COMMUNTIY VENIPUNCT HOSPITA HOSPITA URE INJECTION J2550 [facility] 5 N N PROMETHAZ COMMUNTIY COMMUNTIY INE HCL HOSPITA HOSPITA UP TO 50 MG URINE 82157 [facility] 5 N N TEST COMMUNTIY COMMUNTIY VISUAL HOSPITA HOSPITA COLOR CMPRSN METHS BLOOD 01083 [facility] COUNT 5 N N SMEAR COMMUNTIY COMMUNTIY MCRSCP HOSPITA HOSPITA W/[place] [address] [facility] LIPASE 5 N N COMMUNTIY COMMUNTIY HOSPITA HOSPITA ECG 67098 [facility] ROUTINE 5 N N ECG COMMUNTIY COMMUNTIY W/LEAST HOSPITA HOSPITA 12 [facility] TRCG ONLY W/O [place] [address] [facility] INFUSION 5 N N THERAPY/P COMMUNTIY COMMUNTIY ROPHYLAXI HOSPITA HOSPITA S /DX 1ST TO 1 HR THERAPEUT 39850 [facility] IC 5 N N INJECTION COMMUNTIY COMMUNTIY IV PUSH HOSPITA HOSPITA EACH NEW DRUG ECG 44018 [facility] CELL[facility] ROUTINE 5 SAMANTHA - YORBA ECG EMERGENCY PAT W/LEAST PHYS 12 LDS I&R ONLY BLOOD 41477 [facility] COUNT 5 N N COMPLETE COMMUNTIY [place] [address] [facility] INFUSION 5 N N HYDRATION COMMUNTIY COMMUNTIY EACH HOSPITA HOSPITA ADDITIONA L HOUR COMPREHEN 98941 [facility] SIVE 5 N N METABOLIC COMMUNTIY COMMUNTIY PANEL HOSPITA HOSPITA COMPREHEN 44922 [facility] SIVE 5 N N METABOLIC COMMUNTIY [place] [address] [facility] INFUSION 5 N N HYDRATION COMMUNTIY COMMUNTIY E[place] [address] [facility] [place] JUDD ABDOMEN & 5 RADIOLOGY LAURA PELVIS W/O CONTRAST MATERIAL BLOOD 85917 [facility] COUNT 5 N N COMPLETE COMMUNTIY COMMUNTIY AUTO&AUTO HOSP[place] [address] [facility] LIPASE 5 N N COMMUNTIY COMMUNTIY HOSPITA HOSPITA URINE 23242 [facility] 5 N N TEST COMMUNTIY COMMUNTIY VISUAL HOSPITA HOSPITA COLOR CMPRSN METHS COLLECTIO 51452 [facility] N VENOUS 5 N N BLOOD COMMUNTIY COMMUNTIY VENIPUNCT HOSPITA HOSPITA URE URNLS DIP 35761 [facility] 5 N N STICK/TAB COMMUNTIY COMMUNTIY LET HOSPITA HOSPITA REAGENT AUTO MICROSCOP Y CULTURE 59828 [facility] BACTERIAL 5 N N COMMUNTIY COMMUNTIY QUANTTATI HOSPITA HOSPITA VE COLONY COUNT URINE INJECTION J2270 [facility] MORPHINE 5 N N SULFATE COMMUNTIY COMMUNTIY UP TO 10 HOSPITA HOSPITA MG INFUSION J7030 [facility] NORMAL 5 N N SALINE COMMUNTIY COMMUNTIY SOLUTION HOSPITA HOSPITA 1000 CC THER 57886 [facility] PROPH/DX 5 N N NJX IV COMMUNTIY COMMUNTIY PUSH HOSPITA HOSPITA SINGLE/1S T SBST/DRUG UNCLASSIF J3490 [facility]UST[facility] IED DRUGS 5 [place] [address] [facility] AMYLASE 5 [facility] [place] [address] [facility] BUST[facility] LIPASE 5 [facility] INC INC BLOOD 58519 [facility] B[facility] COUNT 5 [facility] COMPLETE INC INC AUTO&[place] [address] [facility] ABDOMEN & 5 [facility] [place] PELVIS IMAGING W/O ASS CONTRAST MATERIAL COMPREHEN 03448 [facility] SIVE 5 [facility] METABOLIC INC INC PANEL URNLS DIP 19002 [facility]UST[facility]ANTE 5 [facility] STICK/TAB INC INC LET REAGENT AUTO MICROSCOP Y URINE 07024 [facility] BUST[facility]TE 5 [facility] TEST INC INC VISUAL COLOR CMPRSN METHS CULTURE 12669 [facility] BACTERIAL 5 [facility] INC INC QUANTTATI VE COLONY COUNT URINE UNCLASSIF J3490 [facility] B[facility] IED DRUGS 5 [facility] INC INC BLOOD 88301 [facility] PALACIOSON COUNT 5 [facility] COMPLETE INC INC AUTO&[place] [address] [facility]UST[facility] LIPASE 5 [facility] INC INC COMPREHEN 75868 [facility] B[facility] SIVE 5 [facility] METABOLIC INC INC PANEL URINE 24409 [facility] BUSTAMANTE 5 [facility] TEST INC INC VISUAL COLOR CMPRSN METHS URNLS DIP 40012 [facility]USTAMANTE 5 [facility] STICK/TAB INC INC LET REAGENT AUTO MICROSCOP Y COLLECTIO 54184 [facility] B[facility] N VENOUS 5 [facility] [place] [address] [facility] BUSTAMANTE ABDOMEN & 5 [facility] PELVIS INC INC W/O CONTRAST MATERIAL URNLS DIP 35098 [facility] BUSTAMNATE 5 [facility] STICK/TAB INC INC LET REAGENT AUTO MICROSCOP Y URINE 91050 [facility]USTAMANTE 5 [facility] TEST INC INC VISUAL COLOR CMPRSN METHS INJECTION J1200 [facility] 5 [facility] UP TO 50 MG INJECTION J2270 [facility] MORPHINE 5 Y Y SULFATE [facility] UP TO 10 MG INJECTION J1956 [facility] 5 Y Y LEVOFLOXA [facility] LETY [address] [place] [address] [facility] LIPASE 5 Y Y [facility] BLOOD 78157 [facility] COUNT 5 Y Y COMPLETE [facility] [place] [address] [facility] INFUSION 5 Y Y THERAPY/P [facility] ROPHYLAXI S /DX 1ST TO 1 HR THERAPEUT 56550 [facility] IC 5 Y Y INJECTION [facility] IV PUSH EACH NEW DRUG COMPREHEN 18660 [facility] SIVE 5 Y Y METABOLIC [facility] PANEL THER 18709 [facility] PROPH/DX 5 Y Y NJX EA [facility] SEQL IV PUSH SBST/DRUG FAC INJECTION J2270 [facility] MORPHINE 5 Y Y SULFATE [facility] UP TO 10 MG INFUSION J7030 [facility] NORMAL 5 Y Y SALINE [facility] SOLUTION 1000 CC URINE 74434 [facility] 5 Y Y TEST [facility] VISUAL COLOR CMPRSN METHS URNLS DIP 05169 [facility] 5 Y Y STICK/TAB HOSPITAL HOSPITAL LET REAGENT AUTO MICROSCOP Y INJECTION J2765 [facility] 5 Y Y [facility] AMIDE HCL [place] [address] [place] [address] [facility] [place] KOSTELIC ABDOMEN & 5 RADIOLOGY ROBERT PELVIS W/[place] [address] [facility] BUST[facility]ANTE ABDOMEN & 5 [facility] PELVIS INC INC W/O CONTRAST MATERIAL COMPREHEN 34723 [facility] SIVE 5 [facility] [place] [address] [facility]UST[facility] INFUSION 5 [facility] THERAPY/P INC INC ROPHYLAXI S /DX 1ST TO 1 HR BLOOD 89479 [facility] COUNT 5 [facility] COMPLETE INC INC AUTO&AUTO DIFRNTL WBC PROTHROMB 55083 [facility]USTAMANTE IN TIME 5 [place] [address] [facility]USTAMAN[facility] LIPASE 5 [place] [address] [facility]UST[facility] AMYLASE 5 [facility] INC INC URNLS DIP 71798 [facility] BUSTAMANTE 5 [facility] STICK/TAB INC INC LET REAGENT AUTO MICROSCOP Y UNCLASSIF J3490 [facility] B[facility] IED DRUGS 5 [facility] INC INC CULTURE 75116 [facility] B[facility] BACTERIAL 5 [facility] INC INC QUANTTATI VE COLONY COUNT URINE THROMBOPL 14625 [facility] ASTIN 5 [facility] TIME INC INC PARTIAL PLASMA/WH OLE BLOOD THERAPEUT 79697 [facility] IC 5 [facility] INJECTION INC INC IV PUSH EACH NEW DRUG THERAPEUT 16799 [facility] IC 5 N N INJECTION COMMUNTIY COMMUNTIY IV PUSH [place] [address] [facility] ABDOMEN & 5 N N PELVIS COMMUNTIY COMMUNTIY W/CONTRAS HOSPITA HOSPITA T MATERIAL CULTURE 14229 [facility] BACTERIAL 5 N N COMMUNTIY COMMUNTIY QUANTTATI HOSPITA HOSPITA VE COLONY COUNT URINE INJECTION J2270 [facility] MORPHINE 5 N N SULFATE COMMUNTIY COMMUNTIY UP TO [address] [place] [address] [facility] AMYLASE 5 N N COMMUNTIY COMMUNTIY HOSPITA HOSPITA INJECTION J2550 [facility] 5 N N PROMETHAZ COMMUNTIY COMMUNTIY INE HCL HOSPITA HOSPITA UP TO 50 MG URINE 69419 [facility] 5 N N TEST COMMUNTIY COMMUNTIY VISUAL HOSPITA [place] [address] [facility] LIPASE 5 N N COMMUNTIY COMMUNTIY HOSPITA HOSPITA BLOOD 18182 [facility] COUNT 5 N N COMPLETE COMMUNTIY COMMUNTIY AUTO&AUTO HOSPITA HOSPITA DIFRNTL WBC LOCM Q9967 [facility] [phone] 5 N N MG/ML COMMUNTIY COMMUNTIY IODINE HOSPITA HOSPITA CONCENTRA TION PER ML URNLS DIP 36919 [facility] 5 N N STICK/TAB COMMUNTIY COMMUNTIY LET HOSPITA HOSPITA REAGENT AUTO MICROSCOP Y COMPREHEN 57148 [facility] SIVE 5 N N METABOLIC COMMUNTIY COMMUNTIY PANEL HOSPITA HOSPITA COMPREHEN 01721 [facility]UST[facility]TE SIVE 5 [facility] METABOLIC INC INC PANEL BLOOD 85805 [facility] BUSTAMANTE COUNT 5 [facility] COMPLETE INC INC AUTO&[place] [address] [facility]UST[facility] LIPASE 5 [facility] INC INC URINE 25454 [facility]TE 5 [facility] TEST INC INC [place] [address] [facility] BUSTAMANTE AMYLASE 5 [facility] INC INC URNLS DIP 56999 [facility] BUSTAMANTE 5 [facility] STICK/TAB INC INC LET REAGENT AUTO MICROSCOP Y CULTURE 44813 [facility] B[facility] BACTERIAL 5 [facility] INC INC QUANTTATI VE COLONY COUNT URINE UNCLASSIF J3490 [facility]UST[facility]ANTE IED DRUGS 5 [facility] INC INC UNCLASSIF J3490 [facility] B[facility] IED DRUGS 5 [facility] INC INC URINE 50961 [facility]USTAMANTE 5 [facility] TEST INC INC VISUAL COLOR CMPRSN METHS URNLS DIP 86551 [facility]USTAMANTE 5 [facility] STICK/TAB INC [place] [address] [facility] BUST[facility] ABDOMEN & 5 [facility] PELVIS INC INC W/O CONTRAST MATERIAL UNCLASSIF J3490 [facility]USTAMANTE IED DRUGS 5 [facility] INC INC THER 50951 [facility] B[facility] PROPH/DX 5 [facility] NJX IV INC INC PUSH SINGLE/1S T SBST/DRUG THERAPEUT 98648 [facility] B[facility] IC 5 [facility] INJECTION INC INC IV PUSH EACH NEW DRUG RADIOLOGI 35329 [facility] BUST[facility]AN[facility] C 5 [facility] EXAMINATI INC INC ON TIBIA & [place] [address] [place] [address] [facility] KAYLA ABDOMEN & 5 [facility] PELVIS IMAGING W/O ASS CONTRAST MATERIAL Encounters Encounter Start End Date Code Location Performer Type Date OFFICE 93317 Lynn MOSS 7 7 JAVIER ROMAN T VISIT PSC 15 MINUTES EMERGENCY 82304 [facility] DE[facility] DEPT 7 7 PHYSICIAN VISIT S, [facility] HIGH SEVERITY& THREAT CRITICAL [facility]ESS [facility]PITAL H[facility]PITAL DI[facility]NA Viveros 7 [facility] OUT[facility] T EMERGENCY 67393 [facility] 7 7 [facility] DEPARTMEN INC T VISIT LOW/MODER SEVERITY EMERGENCY 53325 LÁZARO PATE 7 7 PHYSICIAN JAMEELMEN S, [facility] T VISIT MODERATE SEVERITY EMERGENCY 45306 Jackeline GRAY 7 PHYSICIAN JR DEPARTMEN , [facility] T VISIT HIGH/URGE NT SEVERITY OFFICE 99727 Lynn MOSS 7 7 JAVIER ROMAN T VISIT PSC 25 MINUTES EMERGENCY 41370 [facility] DEPT 7 7 [facility] VISIT INC HIGH SEVERITY& THREAT [facility] DI[facility] - 7 7 [facility] OUTPAT[facility]EN [facility] T [facility]ENC[facility]22 [facility] SAMANTHA VISIT EMERGENCY HIGH PHYS SEVERITY& THREAT FUNCJ EMERGENCY 76422 [facility] DEPT 7 7 PHYSICIAN U VISIT S, PLLC HIGH SEVERITY& THREAT FUNCJ OFFICE 97584 A Kaelyn RICK OUTPATIDAVIDA 7 7 JAVIER ROMAN T VISIT PSC 15 MINUTES HOSPITAL DI[facility] - 7 7 [facility] OUTPATIEN INC T OFFICE 23380 [facility] OUTPATID[facility] 7 7 [facility] T VISIT 5 INC MINUTES OFFICE 91243 A Kaelyn MOSS 7 7 JAVIER ROMAN T VISIT PSC 15 MINUTES EMERGENCY 39063 [facility] 7 7 SAMANTHA DEPARTMEN EMERGENCY T VISIT PHYS HIGH/URGE NT SEVERITY EMERGENCY 15120 [facility] 7 7 PHYSICIAN DEPARTMEN S, PLLC T VISIT HIGH/URGE NT SEVERITY HOSPITAL [facility] - 7 7 [facility] OUTPATIEN INC T EMERGENCY 76041 [facility] 7 7 [facility] DEPARTMEN INC T VISIT LOW/MODER SEVERITY EMERGENCY 35723 [facility] 7 7 SAMANTHA DEPARTMEN EMERGENCY T VISIT PHYS HIGH/URGE NT SEVERITY EMERGENCY 79236 [facility] DEPT 7 7 PHYSICIAN U VISIT S, PLLC HIGH SEVERITY& THREAT FUNCJ EMERGENCY 67227 LÁZARO PATE 7 7 PHYSICIAN DEPARTMEN S, PLLC T VISIT HIGH/URGE NT SEVERITY EMERGENCY 08156 [facility] 6 6 N DEPARTMEN COMMUNTIY T VISIT HOSPITA MODERATE SEVERITY [facility]GENCY 06877 [facility] DEPARTMEN EMERGENCY T VISIT PHYS HIGH/URGE NT SEVERITY HOSPITAL [facility] - 6 6 N OUTPATIEN COMMUNTIY T HOSPITA EMERGENCY 28885 [facility] DEPT 6 6 SAMANTHA VISIT EMERGENCY HIGH SERV SEVERITY& THREAT CRITICAL ACCESS HOSPITAL [facility] 6 6 [facility] OUTPATIEN INC T EMERGENCY 08705 [facility] 6 6 PHYSICIAN U DEPARTMEN S, PLLC T VISIT HIGH/URGE NT SEVERITY EMERGENCY 07086 [facility] 6 6 [facility] INC T VISIT LIMITED/M INOR PROB EMERGENCY 54859 [facility] DEPT 6 6 SAMANTHA SCO VISIT EMERGENCY HIGH PHYS SEVERITY& THREAT [facility] OFFICE 21099 A C NEELAM LUCAS OUTPATIEN 6 6 JAVIER ROMAN T VISIT PSC 15 MINUTES EMERGENCY 77801 [facility] DEPT 6 6 PHYSICIAN U MARCIA VISIT S, PLLC HIGH SEVERITY& THREAT [facility] 86986 A C MERLINE OUTPATIEN 6 6 [facility]IER [facility] T VISIT PSC 15 MINUTES OFFICE 73709 A C [facility] OUTPATIEN 6 6 [facility]IER [facility] T VISIT PSC 15 MINUTES HOSPITAL [facility] - 6 6 [facility] OUTPATIEN INC T OFFICE 24485 A C MERLINE OUTPATIEN 6 6 JAVIER [facility] T VISIT PSC 15 MINUTES OFFICE 71918 A C CONNIE OUTPATIEN 6 6 JAVIER LOGAN T VISIT PSC 15 MINUTES OFFICE 17039 A C [facility] OUTPATIEN 6 6 [facility]IER [facility] T VISIT PSC 15 MINUTES HOSPITAL [facility] - 6 6 [facility] OUTPATIEN INC T OFFICE 52490 A C MERLINE OUTPATIEN 6 6 JAVIER [facility] T VISIT PSC 15 MINUTES OFFICE 92144 A C [facility]LINE OUTPATIEN 6 6 JAVIER [facility] T VISIT PSC 15 MINUTES OFFICE 17989 A C [facility]LINE OUTPATIEN 6 6 JAVIER [facility] T VISIT PSC 15 MINUTES EMERGENCY 12070 LÁZARO PATE 6 6 PHYSICIAN LYNDA DEPARTMEN S, [facility] T VISIT HIGH/URGE NT SEVERITY [facility]OSPITAL [facility] - 6 6 [facility] OUTPATIEN INC T OFFICE 25912 A C CONNIE OUTPATIEN 6 6 JAVIER LOGAN T VISIT PSC 25 MINUTES HOSPITAL [facility] - 6 6 [facility] OUTPATIEN INC T OFFICE 87664 A C MERLINE OUTPATIEN 6 6 JAVIER [facility]I T VISIT PSC 15 MINUTES EMERGENCY 37939 [place] SAMEERA HENNESSYI 6 6 MEDICAL DEPARTMEN SERV T VISIT FOUNDATIO MODERATE N SEVERITY EMERGENCY 21657 [facility] FAUSTINO JAM 6 6 SAMANTHA DEPARTMEN EMERGENCY T VISIT PHYS HIGH/URGE NT SEVERITY OFFICE 83771 A C MERLINE OUTPATIEN 6 6 JAVIER CH[facility] T NEW 30 PSC MINUTES EMERGENCY 46243 JOCY TAM 6 6 [facility] DEPARTMEN SERV T VISIT FOUNDATIO HIGH/URGE N NT SEVERITY EMERGENCY 12536 [facility] SON BAB 6 6 SAMANTHA DEPARTMEN EMERGENCY T VISIT PHYS HIGH/URGE NT SEVERITY EMERGENCY 86790 [facility] DEPT 6 6 PHYSICIAN LYNDA VISIT S, [facility] HIGH SEVERITY& THREAT FUNCJ EMERGENCY 15806 [facility] 6 6 [facility] DEPARTMEN INC T VISIT HIGH/URGE NT SEVERITY [facility]OSPITAL [facility] - 6 6 [facility] OUTPATIEN INC T EMERGENCY 93291 LÁZARO [facility] 6 6 PHYSICIAN U MARCIA [facility] S, [facility] T VISIT MODERATE SEVERITY EMERGENCY 33928 [facility] ROSALES SCO 6 6 SAMANTHA [facility] EMERGENCY T VISIT SERV HIGH/URGE NT SEVERITY EMERGENCY 83052 LÁZARO PATE 6 6 PHYSICIAN [facility] T VISIT HIGH/URGE NT SEVERITY EMERGENCY 62039 LÁZARO [facility] 6 6 PHYSICIAN U MARCIA [facility] T VISIT MODERATE SEVERITY EMERGENCY 15884 LÁZARO PATE 6 6 PHYSICIAN [facility] S, [facility] T VISIT HIGH/URGE NT SEVERITY EMERGENCY 34069 LÁZARO HOWELL 6 6 PHYSICIAN [facility] T VISIT HIGH/URGE NT SEVERITY EMERGENCY 68178 DANNY ROYAL 6 6 SAMANTHA [facility] EMERGENCY T VISIT PHYS HIGH/URGE NT SEVERITY EMERGENCY 90014 LÁZARO CHACON DEPT 6 6 PHYSICIAN FOR VISIT [facility] HIGH SEVERITY& THREAT FUNCJ EMERGENCY 73438 LÁZARO PATE 6 6 PHYSICIAN [facility] T VISIT HIGH/URGE NT SEVERITY EMERGENCY 59398 [facility] ROSAUR[facility] 6 6 [facility]THA [facility] EMERGENCY T VISIT PHYS HIGH/URGE NT SEVERITY EMERGENCY 51203 [facility]ANNA 6 6 [facility] INC T VISIT MODERATE SEVERITY EMERGENCY 28041 LÁZARO LYNNE 6 6 PHYSICIAN [facility] T VISIT HIGH/URGE NT SEVERITY HOSPITAL DIANNA - 6 6 [facility] OUTPATIEN INC T EMERGENCY 06594 [facility] 6 6 N [facility] COMMUNTIY T VISIT HOSPITA HIGH/URGE NT SEVERITY HOSPITAL GEORGEW - 6 6 N OUTPATIEN COMMUNTIY T HOSPITA EMERGENCY 03718 [facility] ILANA DEPT 6 6 SAMANTHA MON VISIT EMERGENCY HIGH PHYS SEVERITY& THREAT [facility] - 5 5 N OUTPATIEN COMMUNTIY T HOSPITA EMERGENCY 67008 [facility] 5 5 N DEPARTMEN COMMUNTIY T VISIT HOSPITA HIGH/URGE NT SEVERITY EMERGENCY 03002 [facility] DEPT 5 5 SAMANTHA VISIT EMERGENCY HIGH SERV SEVERITY& THREAT [facility] DIANNA - 5 5 [facility] OUTPATIEN INC T EMERGENCY 10700 LÁZARO PATE DEPT 5 5 PHYSICIAN LYNDA VISIT S, PLLC HIGH SEVERITY& THREAT FUN EMERGENCY 93419 DIANNA 5 5 [facility] DEPARTMEN INC T VISIT LOW/MODER SEVERITY EMERGENCY 04410 [facility] DEPT 5 5 N VISIT COMMUNTIY HIGH HOSPITA SEVERITY& THREAT [facility] SABIHA - 5 5 N OUTPATIEN COMMUNTIY T HOSPITA EMERGENCY 35745 LÁZARO OROZCO 5 5 PHYSICIAN BECKIE DEPARTMEN S, PLLC T VISIT MODERATE SEVERITY EMERGENCY 78828 [facility]NA 5 5 [facility] DEPARTMEN INC T VISIT LOW/MODER SEVERITY HOSPITAL [facility] - 5 5 [facility] OUTPATIEN INC T EMERGENCY 55552 LÁZARO PATE 5 5 PHYSICIAN LYNDA DEPARTMEN S, PLLC T VISIT HIGH/URGE NT SEVERITY HOSPITAL [facility] - 5 5 [facility] OUTPATIEN INC T EMERGENCY 48556 LÁZARO WALTON 5 5 PHYSICIAN U MARCIA DEPARTMEN S, PLLC T VISIT MODERATE SEVERITY EMERGENCY 16252 [facility] 5 5 [facility] DEPARTMEN INC T VISIT LOW/MODER SEVERITY EMERGENCY 12904 TAMMIE 5 5 N DEPARTMEN COMMUNTIY T VISIT HOSPITA HIGH/URGE NT SEVERITY HOSPITAL TAMMIE - 5 5 N OUTPATIEN COMMUNTIY T HOSPITA EMERGENCY 06072 [facility] CELLAROSI DEPT 5 5 SAMANTHA - YORBA VISIT EMERGENCY PAT HIGH PHYS SEVERITY& THREAT [facility] EMERGENCY 59377 [facility] SANCHEZ DEPT 5 5 SAMANTHA JERILYN VISIT EMERGENCY HIGH PHYS SEVERITY& THREAT CRITICAL ACCESS HOSPITAL HOSPITAL [facility] - 5 5 N OUTPATIEN COMMUNTIY T HOSPITA EMERGENCY 31950 [facility] 5 5 N DEPARTMEN COMMUNTIY T VISIT HOSPITA HIGH/URGE NT SEVERITY EMERGENCY 88670 LÁZARO TELLES 5 5 [facility] MODERATE SEVERITY [facility] - 5 5 [facility] OUTPATIEN INC T EMERGENCY 29285 [facility] 5 5 [facility] DEPARTMEN INC T VISIT LIMITED/M INOR PROB EMERGENCY 98068 LÁZARO PATE DEPT 5 5 PHYSICIAN LYNDA VISIT S, PLLC HIGH SEVERITY& THREAT CRITICAL ACCESS HOSPITAL [facility] - 5 5 [facility] OUTPATIEN INC T EMERGENCY 19860 DI[facility]NA 5 5 [facility] DEPARTMEN INC T VISIT LOW/MODER SEVERITY EMERGENCY 64536 [facility] 5 5 [facility] DEPARTMEN INC T VISIT MODERATE SEVERITY EMERGENCY 59898 LÁZARO OLVERA 5 5 PHYSICIAN DEPARTMEN S, PLLC T VISIT HIGH/URGE NT SEVERITY HOSPITAL DI[facility] - 5 5 [facility] OUTPATIEN INC T EMERGENCY 54366 LÁZARO PATE 5 5 PHYSICIAN LYNDA DEPARTMEN S, PLLC T VISIT HIGH/URGE NT SEVERITY HOSPITAL [facility] - 5 5 [facility] OUTPATIEN INC T EMERGENCY 18418 DIANNA 5 5 [facility] DEPARTMEN INC T VISIT LOW/MODER SEVERITY [facility] 05213 [facility] 5 5 Y [facility] T VISIT HIGH/URGE NT SEVERITY EMERGENCY 86671 [facility] 5 5 SAMANTHA PET [facility] EMERGENCY T VISIT PHYS HIGH/URGE NT SEVERITY EMERGENCY 88829 DIANNA 5 5 [facility] HIGH/URGE NT SEVERITY HOSPITAL DI[facility] - 5 5 [facility] OUTPATIEN INC T EMERGENCY 23576 LÁZARO WALTON DEPT 5 5 PHYSICIAN U MARCIA VISIT S, [facility] HIGH SEVERITY& THREAT CRITICAL ACCESS HOSPITAL HOSPITAL [facility] HOSPITA EMERGENCY 02153 [facility] 5 5 N [facility] COMMUNTI T VISIT HOSPITA HIGH/URGE NT SEVERITY EMERGENCY 77631 [facility] DEPT 5 5 SAMANTHA COREY VISIT EMERGENCY HIGH PHYS SEVERITY& THREAT [facility] EMERGENCY 67199 DIANNA 5 5 [facility] T VISIT LOW/MODER SEVERITY EMERGENCY 53185 LÁZARO PATE 5 5 PHYSICIAN [facility] T VISIT HIGH/URGE NT SEVERITY HOSPITAL DIANNA - 5 5 [facility] OUTPATIEN INC T HOSPITAL DIANNA - 5 5 [facility] OUTPATIEN INC T EMERGENCY 82715 DIANNA PATE [address] [facility] T VISIT P MODERATE SEVERITY EMERGENCY [address] DIANNA [address] [facility] INC T VISIT LOW/MODER SEVERITY EMERGENCY 46060 DIANNA ARBOLEDA [address] [facility] T VISIT P LOW/MODER SEVERITY HOSPITAL DI[facility]NA - 5 5 [facility] OUTPATIEN INC T EMERGENCY [address]62 DIANNA [address] [facility] INC T VISIT HIGH/URGE NT SEVERITY EMERGENCY [address] DIANNA [address] [facility] INC T VISIT LOW/MODER SEVERITY EMERGENCY 12094 DIANNA DEAN, 5 5 [facility] T VISIT P MODERATE SEVERITY [facility] DIANNA Meza 5 [facility]
--- OUTSIDE RECORDS SUMMARY | 2017-03-23 15:43 | External Medical Summary Rpt | CCD ---
Author Author , ROBERTO Calvert ROBERTO Address Unknown Phone [email or web address] Care Team Providers Care Data Consultant Name Role Phone A Kaelyn HERRERA MD PSC, Lynn Unavailable Unavailable Kaelyn HERRERA MD PSC LELE MIRANDA Unavailable Unavailable KAEL SOSA MAY, SHEILA MAY Unavailable Unavailable BEINEKE MARCIA, BEINEKE Unavailable Unavailable MARCIA FAUSTINO JAM, FAUSTINO JAM Unavailable Unavailable CONNORS, CONNORS Unavailable Unavailable CONNORS ALL, CONNORS ALL Unavailable Unavailable ILANA MON, Unavailable Unavailable ILANA MON [facility] Unavailable Unavailable SERVICE, [facility] HARRINGTON, HARRINGTON Unavailable Unavailable HARRINGTON [...] Unavailable Unavailable ARTI GEILE, GEILE Unavailable Unavailable [facility] Unavailable Unavailable [facility], [facility] YULI RHO, YULI Unavailable Unavailable RHO [facility], Unavailable Unavailable [facility] JUDD LAURA, JUDD Unavailable Unavailable LAURA [facility]ANNA [facility], Unavailable Unavailable DIANNA [facility] Unavailable Unavailable INC, [facility] Unavailable Unavailable HOSPITAL P, [facility] P FELTON KOKI, FELTON KOKI Unavailable Unavailable WAIMANALO III KISHA, Unavailable Unavailable [facility]IM[facility] III [facility] Unavailable Unavailable IMAGING ASS, [facility] [...] SOTINGEANU MARCIA [facility] Unavailable Unavailable EMERG[facility]Y PHYS, [facility] Unavailable Unavailable EMERGENCY SERV, [facility] Unavailable Unavailable PHYSICIAN SERVI, [facility]I MOTLEY, MOTLEY Unavailable Unavailable MOTLEY RAY, MOTLEY Unavailable Unavailable RAY [facility] [...] HERRERA MD PSC N200 CALCULUS OF 01-26-2017 [facility] N3090 CYSTITIS 01-26-2017 [facility] UNSPECIFIED PHYSICIANS, WITHOUT PLLC HEMATURIA M5442 LUMBAGO 01-08-2017 ANN[facility] WITH HOME SCIATICA MEDICAL LEFT SIDE EQUIPME [id number] STRAIN 01-08-2017 ANNELIESE MUSCLE HOME FASCIA & [...] MELENA 10-25-2016 A Kaelyn HERRERA MD PSC B25360 UNSPECIFIED 10-25-2016 A Kaelyn HERRERA OVARIAN PSC CYST UNSPECIFIED SIDE N12 TUBULO-INTE 10-22-2016 A Kaelyn HERRERA RST PSC NEPHRITIS NOT SPEC ACUTE/CHRON N390 URINARY 10-22-2016 A Kaelyn HERRERA TRACT PSC INFECTION SITE NOT SPECIFIED [id number] UNSPECIFIED 10-22-2016 A Kaelyn HERRERA OVARIAN PSC CYST RIGHT SIDE R1031 RIGHT LOWER 10-22-2016 A Kaelyn HERRERA QUADRANT PSC PAIN E785 HYPERLIPIDE 10-21-2016 [facility] UNSPECIFIED INC V08633 PERSONAL 10-21-2016 [facility] URINARY INC TRACT INFECTIONS G14777 PERSONAL 10-21-2016 [facility] URINARY INC CALCULI H27801 ELEVATED 09-18-2016 A Kaelyn HERRERA WHITE BLOOD [...] OTHER PHYSICIANS, NONSPECIFIC PLLC SKIN ERUPTION 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 [facility]R [facility] NON-STEROID INC AL&ANTI-INF LAMMATORIES G05043 OTHER LONG 09-08-2016 [facility] TERM [facility] CURRENT INC DRUG THERAPY Z888 ALLERGY 09-08-2016 [facility] STATUS OTH [facility] RX MEDS & INC BIOLOG SUBSTANC STS R1032 LEFT LOWER 08-10-2016 [facility] B86 SCABIES 07-04-2016 [facility] PHYSICIANS, PLLC R030 ELEVATED 06-03-2016 [facility] BLOOD-PRESS N EMERGENCY URE READING SERV WITHOUT DX HTN R0600 DYSPNEA 06-03-2016 [facility] [place] UNSPECIFIED RADIOLOGY R079 CHEST PAIN 06-03-2016 [facility] [place] UNSPECIFIED RADIOLOGY R1013 EPIGASTRIC 06-03-2016 [facility] PAIN N EMERGENCY SERV J40 BRONCHITIS 03-12-2016 A Kaelyn HERRERA NOT PSC SPECIFIED ACUTE OR CHRONIC R05 COUGH 03-12-2016 A Kaelyn HERRERA MD PSC E860 DEHYDRATION 02-22-2016 [facility] PHYSICIANS, PLLC R1011 RIGHT UPPER 02-22-2016 [facility] PHYSICIANS, PAIN PLL R1010 UPPER 02-21-2016 A Kaelyn HERRERA ABDOMINAL PSC PAIN UNSPECIFIED R1110 VOMITING 02-21-2016 A Kaelyn HERRERA UNSPECIFIED PSC P06460 OTHER 02-14-2016 A Kaelyn HERRERA INSTABILITY PSC LEFT ANKLE K40073 PAIN IN 02-14-2016 A Kaelyn HERRERA LEFT KNEE PSC E60484 PAIN IN 02-09-2016 A Kaelyn HERRERA RIGHT LEG PSC S97935 PAIN IN 02-09-2016 A Kaelyn HERRERA LEFT LEG PSC Q61427 EFFUSION 02-07-2016 [facility] F28999 PAIN IN 02-07-2016 [facility] LEFT [facility] ASS M7989 OTHER 02-07-2016 [facility] SPECIFIED MEDICAL SOFT TISSUE IMAGING ASS DISORDERS G8929 OTHER 01-26-2016 A Kaelyn HERRERA CHRONIC PSC PAIN N289 DISORDER OF 01-09-2016 [facility] UNSPECIFIED R000 TACHYCARDIA 01-09-2016 [facility] UNSPECIFIED FOUNDATION N209 URINARY 12-31-2015 [facility] CALCULUS PHYSICIANS, UNSPECIFIED PLL V12059 PAIN IN 11-10-2015 [facility] C60070G SPRAIN 11-10-2015 [facility] UNSPEC PHYSICIANS, LIGAMENT PLL RIGHT ANKLE INITIAL ENC G85871V UNSPECIFIED 11-10-2015 [facility] INJURY [facility]ICAL RIGHT ANKLE IMAGING ASS INITIAL ENCOUNTER R319 HEMATURIA 10-07-2015 [facility] UNSPECIFIED PHYSICIANS, PLLC N8320 UNSPECIFIED 08-05-2015 [facility] OVARIAN N EMERGENCY CYSTS PHYS N8329 OTHER 08-05-2015 [facility] [place] OVARIAN RADIOLOGY CYSTS R1030 LOWER 08-04-2015 [facility] ABDOMINAL PHYSICIANS, PAIN PLLC UNSPECIFIED M549 DORSALGIA 06-26-2015 [facility] UNSPECIFIED PHYSICIANS, PLLC Z960 PRESENCE OF 06-16-2015 [facility] IMPLANTS HOSPITA N201 CALCULUS OF 05-20-2015 [facility] URETER PHYSICIANS, PLLC E669 OBESITY 05-17-2015 [facility] UNSPECIFIED N PHYSICIAN SERVI N132 HYDRONEPHRO 05-17-2015 [facility] SIS W/RENAL N PHYSICIAN & URETRL SERVI CALCULOUS OBST N1330 UNSPECIFIED 05-17-2015 [facility] HYDRONEPHRO SIS R6510 SYS INFLM 05-17-2015 [facility] RSPN SYND N PHYSICIAN NON-INF SERVI ORIG NO AC ORGN DYSF Z6841 BODY MASS 05-16-2015 [facility] INDEX BMI COMMUNTIY 40.0-44.9 HOSPITA ADULT J208 ACUTE 04-28-2015 [facility] BRONCHITIS PHYSICIANS, DUE TO PLLC OTHER SPEC ORGANISMS K859 ACUTE 04-05-2015 [facility] PANCREATITI N EMERGENCY S PHYS UNSPECIFIED R9431 ABNORMAL 04-05-2015 [facility] IOGRAM HOSPITA 5920 CALCULUS OF 02-26-2015 [facility] [place] KIDNEY RADIOLOGY 5990 URINARY 02-26-2015 [facility] TRACT N EMERGENCY INFECTION PHYS SITE NOT SPECIFIED 09086 NAUSEA 02-26-2015 [facility] COMMUNTIY HOSPITA 53908 DIARRHEA 02-26-2015 [facility] 22094 ABDOMINAL 02-26-2015 [facility] PAIN RIGHT N EMERGENCY LOWER PHYS QUADRANT V1301 PERSONAL 02-26-2015 [facility] HISTORY OF COMMUNTIY URINARY HOSPITA CALCULI V1582 PERS HX 02-26-2015 [place] TOBACCO USE COMMUNTIY PRESENTING HOSPITA [facility] 4019 UNSPECIFIED 02-19-2015 [facility] HYPERTENSIO INC N 5275 SIALOLITHIA 02-19-2015 [facility] SIS PHYSICIANS, PLLC 6202 OTHER AND 02-14-2015 [facility] UNSPECIFIED PHYSICIANS, OVARIAN PLLC CYST 13870 ABDOMINAL 12-11-2014 [place] PA[place] OTHER MEDICAL SPECIFIED IMAGING ASS SITE 12026 ABDOMINAL 12-10-2014 [facility] PAIN, LEFT [facility] LOWER INC QUADRANT 0419 BACTERIAL 11-26-2014 [place] [facility] UNSPECIFIED FOUNDATION CCE & UNS SITE 93206 UNSPECIFIED 11-26-2014 [facility] PYELONEPHRI TIS V4579 OTHER 11-26-2014 [facility] ABSENCE OF ORGAN 77641 ABDOMINAL 11-21-2014 [facility] [place] PAIN, RADIOLOGY UNSPECIFIED SITE 26822 ABDOMINAL 11-20-2014 [facility] PAIN, N EMERGENCY PERIUMBILIC PHYS 90896 ABDOMINAL 11-16-2014 [facility] PA[facility], MEDICAL EPIGASTRIC IMAGING ASS 86059 NAUSEA WITH 11-14-2014 [facility] VOMITING COMMUNTIY HOSPITA 5589 OTH&UNSPEC 10-31-2014 [facility] NONINFECTIO PHYSICIANS, [facility] GASTROENTER ITIS&COLITI S 7242 LUMBAGO 10-19-2014 [facility] P 09928 ABDOMINAL 10-19-2014 [place] PAIN, LEFT [facility] P QUADRANT 5921 CALCULUS OF 10-01-2014 [facility] 7295 PAIN IN 10-01-2014 [facility] SOFT MEDICAL TISSUES OF IMAGING ASS LIMB 8449 SPRAIN&STRA 10-01-2014 [facility] IN OF [facility] UNSPECIFIED INC SITE OF KNEE&LEG 9597 INJURY 10-01-2014 [facility] OTHER&UNSPE MEDICAL CIFIED KNEE IMAGING ASS LEG [...] NT E HI AN A IN C GA 65 09 10 24 6 00 EA [...] 5 14 PH CE AR TA MA NC CY NO PH OF EN CY NT [...] 5 68 PH CE AR TA MA NC CY NO PH OF EN CY NT [...] BL HI ET AN A IN C NC 00 07 08 30 30 00 EA [...] 5 89 PH CE AR TA MA NC CY NO PH OF EN CY NT 5- HI 32 AN 5 A IN C CI 16 05 06 20 10 00 EA Ac GA 71 -1 -[address] ti [...] 5 33 PH CE AR TA MA NC CY NO PH OF EN CY NT [...] HI 0 AN MG A IN C GA 59 04 04 10 5 00 EA [...] 48 DE ZA 11 17 17 23 GA 0 48 PH IN AR E MA 10 CY MG OF CY TA NT BL HI ET AN A IN C GA 65 04 04 60 30 00 EA [...] 12 01 14 7 00 EA Ac GA 71 -3 -[address] ti [...] 47 DE RA 30 16 17 07 NC 5 45 PH DE AR MA 10 [...] Procedure DOS Code Location Performer Comment URINLS 76055 A C KILPELA DIP 7 JAVIER ROMAN STICK/TAB PSC LET REAGNT NON-AUTO MICRSCPY RADEX 54442 [facility] K[facility]LA ABDOMEN 1 7 MEDICAL IMAGING ANTEROPOS ASS TERIOR VIEW LUMB L0627 ANNELIESE ANNELIESE ORTHOSIS 7 HOME HOME SAGIT MEDICAL MEDICAL CNTRL EQUIPME EQUIPME RIGID A&P PANEL PREFAB UNCLASSIF J3490 [facility] BUSTAMANTE IED DRUGS 7 MEM HOS[facility] INC INC URINE 73806 [facility] BUSTAMANTE 7 [facility] TEST INC INC VISUAL COLOR CMPRSN METHS RADEX 22887 [facility] SPINE 7 MEM HOS[facility] MEM HOSP LUMBOSACR INC INC AL MINIMUM 4 VIEWS CULTURE 06938 LAB JANNA LAB JANNA BACTERIAL 7 ROSY ROSY HOLDINGS HOLDINGS QUANTTATI VE COLONY COUNT URINE URINLS 70311 A C ANNALA DIP 7 JAVIER ROMAN STICK/TAB PSC LET REAGNT NON-AUTO MICRSCPY OBSERVATI 55986 A C NEELAM ON CARE 7 JAVIER ROMAN DISCHARGE PSC MANAGEMEN T UNCLASSIF J3490 [facility] BUSTAMANTE IED DRUGS 7 MEM HOS[facility] INC INC BLOOD 41618 [facility]USTAM[facility] COUNT 7 [facility] COMPLETE INC INC AUTO&AUTO DIFRNTL WBC BLOOD 34294 [facility]AM[facility] COUNT 7 MEM H[facility]OS[facility] COMPLETE INC INC AUTO&AUTO DIFRNTL WBC BASIC 97109 [facility] BUSTAMANTE METABOLIC 7 MEM H[facility] PANEL INC INC CALCIUM TOTAL UNCLASSIF J3490 [facility] BUSTAMANTE IED DRUGS 7 MEM HOSP [facility]OS[facility] INC INC INITIAL 04011 A Kaelyn RICHTER OBSERVATI 7 JAVIER ROMAN ON PSC CARE/DAY 70 MINUTES HOSPITAL G0378 DIANNA BUSTAMANTE OBSERVATI 7 MEM H[facility] ON INC INC SERVICE PER HOUR HOSP[facility] G0378 DIANNA BUSTAMANTE OBSERVATI 7 [facility] ON INC INC SERVICE PER HOUR UNCLASSIF J3490 [facility] BUSTAMANTE IED DRUGS 7 MEM HOS[facility] INC INC CULTURE 80560 [facility] BUSTAMANTE BACTERIAL 7 MEM H[facility]OS[facility] INC INC QUANTTATI VE COLONY COUNT URINE COMPREHEN 85069 [facility] BUSTAMANTE SIVE 7 MEM HOS[facility] MEM [facility]OS[facility] METABOLIC INC INC PANEL URNLS DIP 50093 [facility] BUSTAMANTE 7 [facility] STICK/TAB INC INC LET REAGENT AUTO MICROSCOP Y BLOOD 18593 [facility] BUSTAMANTE COUNT 7 MEM H[facility] COMPLETE INC INC AUTO&AUTO DIFRNTL WBC GROUND A0425 [facility] AM[facility] PER SERVICE SERVICE STATUTE MILE AMBULANCE A0429 [facility] 7 AMBULANCE AMBULANCE B[place] [address] DI[facility] BUSTAM[facility] INFUSION 7 [facility] H[facility] THERAPY/P INC INC ROPHYLAXI S /DX 1ST TO 1 HR THERAPEUT 34949 [facility] B[facility] IC 7 MEM H[facility] INJECTION [place] [address] [facility] TOLU ABDOMEN & 7 RADIOLOGY PELVIS W/[place] [address] [place] [facility] ABDOMEN & 7 MEDICAL PELVIS IMAGING W/O ASS CONTRAST MATERIAL URINLS 15523 A C RICK DIP 7 JAVIER ROMAN STICK/TAB PSC LET REAGNT NON-AUTO MICRSCPY UNCLASSIF J3490 [facility] BUSTAMANTE IED DRUGS 7 MEM HOS[facility] INC INC URINLS 28283 A C RICK DIP 7 JAVIER ROMAN STICK/TAB PSC LET REAGNT NON-AUTO MICRSCPY COLLECTIO 39238 A Kaelyn RICK N VENOUS 7 JAVIER ROMAN BLOOD PSC VENIPUNCT URE BLOOD 49254 A C MERLINE COUNT 7 JAVIER ROMAN COMPLETE PSC AUTO&[place] [address] [facility] [place] ABDOMEN & 7 RADIOLOGY PELVIS W/O CONTRAST MATERIAL UNCLASSIF J3490 [facility] BUSTAMANTE IED DRUGS 7 MEM HOS[facility] INC INC CULTURE 15641 [facility] BUSTAM[facility]TE BACTERIAL 7 MEM H[facility] INC INC QUANTTATI VE COLONY COUNT URINE URNLS DIP 44811 [facility] BUSTAMANTE 7 [facility] STICK/TAB INC [place] [address] [facility] [facility] ABDOMEN & 7 MEDICAL PELVIS IMAGING W/O ASS CONTRAST MATERIAL URNLS DIP 95145 [facility] 6 N N STICK/TAB COMMUNTIY COMMUNTIY LET HOSPITA HOSPITA REAGENT AUTO MICROSCOP Y CULTURE 31669 [facility] BACTERIAL 6 N N COMMUNTIY COMMUNTIY QUANTTATI HOSPITA HOSPITA VE COLONY COUNT URINE THERAPEUT 67557 [facility] IC 6 N N PROPHYLAC COMMUNTIY COMMUNTIY TIC/DX HOSPITA HOSPITA INJECTION SUBQ/IM RADIOLOGI 49009 [facility] [place] FIDENCIO C 6 RADIOLOGY EXAMINATI ON CHEST SINGLE VIEW FRONTAL ECG 87581 [facility] ROUTINE 6 SAMANTHA ECG EMERGENCY W/LEAST SERV 12 LDS I&R ONLY URNLS DIP 27972 [facility] BUSTAMANTE 6 MEM HOS[facility] HOS[facility] STICK/TAB INC INC LET REAGENT AUTO MICROSCOP Y CULTURE 81107 [facility]UST[facility] BACTERIAL 6 MEM HOS[facility] MEM HOS[facility] INC INC QUANTTATI VE COLONY COUNT URINE UNCLASSIF J3490 [facility] BUSTAMANTE IED DRUGS 6 MEM HOS[facility] MEM HOS[facility] INC INC URINE 13750 [facility] BUSTAMANTE 6 MEM H[facility] TEST INC [place] [address] [facility] [place] BROWN ABDOMEN & 6 RADIOLOGY III KISHA PELVIS W/O CONTRAST MATERIAL OBSERVATI 65070 Lynn RICHTER SHAYY ON/INPATI 6 JAVIER ROMAN ENT [facility] C[facility] [address] [place] [address] [facility] JULESK[facility]LA ABDOMEN & 6 MEDICAL WOLFGANG PELVIS IMAGING W/O ASS CONTRST 1/> BODY RE URINLS 51702 A Kaelyn RICK DIP 6 J[facility]IER [facility] STICK/TAB PSC LET REAGNT NON-AUTO MICRSCPY INJECTION J2550 A Kaelyn RICK 6 [facility]IER [facility] PROMETHAZ PSC INE HCL UP TO 50 MG THERAPEUT 80236 A Kaelyn RICK IC 6 JAVIER [facility]I PROPHYLAC PSC TIC/DX INJECTION SUBQ/[place] [address] [facility]USTAM[facility]TE AMYLASE 6 [facility] INC INC BLOOD 54215 [facility]UST[facility] COUNT 6 [facility] COMPLETE INC INC AUTO&[place] [address] [facility] BUSTAM[facility]TE LIPASE 6 [facility] H[facility] INC INC COMPREHEN 78669 DI[facility] BUSTAM[facility]TE SIVE 6 MEM [facility] METABOLIC INC INC PANEL COLLECTIO 75389 [facility] BUSTAM[facility]TE N VENOUS 6 MEM H[facility] BLOOD INC INC VENIPUNCT URE URINLS 71023 A Kaelyn RICK DIP 6 JAVIER [facility]I STICK/TAB PSC LET REAGNT NON-AUT[place]CRSC[place] 07819 [facility] BUSTAMANTE JT LOWER 6 [facility] H[facility] EXTREM [place] [address] [facility]UST[facility]TE RETROPERI 6 [facility] H[facility] TONEAL INC [place] W/[place] [address] [facility] [facility] ALL RETROPERI 6 MEDICAL TONEAL IMAGING REAL TIME ASS W/IMAGE LIMITED BLOOD 80732 A Kaelyn RICK COUNT 6 JAVIER [facility] COMPLETE PSC AUTO&AUTO DIFRNTL WBC URINLS 51557 A Kaelyn RICK DIP 6 JAVIER [facility]I STICK/TAB PSC LET REAGNT NON-AUTO MICRSCPY INJECTION J0696 A Kaelyn RICK 6 JAVIER [facility]I CEFTRIAXO PSC NE SODIUM PER 250 MG THERAPEUT 34205 A Kaelyn RICK IC 6 JAVIER CHI PROPHYLAC PSC TIC/DX INJECTION SUBQ/IM THERAPEUT 84263 A Kaelyn RICK IC 6 JAVIER CHI PROPHYLAC PSC TIC/DX INJECTION SUBQ/IM INJECTION J0696 A Kaelyn RICK 6 JAVIER CHI CEFTRIAXO PSC NE SODIUM PER 250 MG URINLS 57415 A C RICK DIP 6 JAVIER [facility]I STICK/TAB PSC LET REAGNT NON-AUTO MICRSCPY BLOOD 56261 A C MERLINE COUNT 6 JAVIER CHI COMPLETE PSC AUTO&AUTO DIFRNTL WBC URINLS 79656 A C RICK DIP 6 JAVIER CHI STICK/TAB PSC LET REAGNT NON-AUTO MICRSCPY CULTURE 05994 LAB JANNA LAB JANNA BCT 6 ROSY ROSY ISOL&PRSM HOLDINGS HOLDINGS PTV ID ISOLATE EA URINE CULTURE 44883 LAB JANNA LAB JANNA BACTERIAL 6 ROSY ROSY [employer] HOLDINGS QUANTTATI VE COLONY COUNT URINE SUSCEPTIB 32684 LAB JANNA LAB JANNA LTY STDY 6 [facility] ANTIMICRB HOLDINGS HOLDINGS IAL MICRO/AGA R DILUTJ INJECTION J0696 A C RICK 6 JAVIER CHI CEFTRIAXO PSC NE SODIUM PER 250 MG CUL BACT 48379 LAB JANNA LAB JANNA AEROBIC 6 [facility] ADDL HOLDINGS HOLDINGS METHS DEFINITIV E EA ISOL INJECTION J2550 A C A C 6 JAVIER HERRERA MD PROMETHAZ PSC PSC INE HCL UP TO 50 MG THERAPEUT 20243 A C MERLINE IC 6 JAVIER CHI PROPHYLAC PSC TIC/DX INJECTION SUBQ/[place] [address] [facility] ALL ABDOMEN & 6 MEDICAL PELVIS IMAGING W/O ASS CONTRAST MATERIAL RADIOLOGI 36774 [facility] [facility] C 6 MEDICAL WOLGFANG EXAMINATI IMAGING ON ANKLE ASS 2 VIEWS RADEX 05332 [facility] ALL SPINE 6 MEDICAL LUMBOSACR IMAGING AL 2/3 ASS VIEWS RADEX 11381 [facility] BUSTAMANTE SPINE 6 [facility]OS[facility] LUMBOSACR INC INC AL MINIMUM 4 VIEWS RADEX 88247 [facility] BUSTAM[facility]TE ANKLE 6 [facility]OS[facility] COMPLETE INC INC MINIMUM 3 VIEWS URINLS 51130 A C KILPELA DIP 6 JAVIER ROMAN JEA STICK/TAB PSC LET REAGNT NON-AUTO MICRSCPY RADEX 47980 [place] MERHAR FOOT 6 MEDICAL GAR COMPLETE SERV MINIMUM 3 FOUNDATIO VIEWS N RADEX 82287 [place] MERHAR ANKLE 6 MEDICAL GAR COMPLETE SERV MINIMUM [address] [place] [address] [facility] [place] JAM ABDOMEN & 6 RADIOLOGY PELVIS W/O CONTRAST MATERIAL URINLS 79706 A C RICK DIP 6 JAVIER ROMAN ARTI STICK/TAB P[place] [address] JOCY PAWPAULA RETROPERI 6 MEDICAL BAR TONEAL SERV REAL TIME FOUNDATIO W/[place] [address] [facility] [place] SCALF RITO ABDOMEN & 6 RADIOLOGY PELVIS W/[place] [address] [facility] BEINEMORAIMA ABDOMEN & 6 MEDICAL MARCIA PELVIS IMAGING W/O ASS CONTRAST MATERIAL COLLECTIO 40994 DIANNA BUSTAM[facility]TE N VENOUS 6 [facility] BLOOD INC INC VENIPUNCT URE COMPREHEN 54527 [facility] BUSTAMANTE SIVE 6 [facility] METABOLIC INC INC PANEL URNLS DIP 63768 [facility] BUSTAMANTE 6 [facility] STICK/TAB INC INC LET REAGENT AUTO MICROSCOP Y BLOOD 58425 [facility] BUSTAMANTE COUNT 6 [facility] COMPLETE INC INC AUTO&AUTO DIFRNTL WBC UNCLASSIF J3490 [facility] BUSTAMANTE IED DRUGS 6 [facility] INC INC CULTURE 17626 [facility] BUSTAM[facility]TE BACTERIAL 6 [facility] INC INC QUANTTATI VE COLONY COUNT URINE THER 89713 DI[facility] BUSTAMANTE PROPH/DX 6 [facility] NJX IV INC INC PUSH SINGLE/1S T SBST/DRUG THERAPEUT 98119 [facility] BUSTAMANTE IC 6 [facility] INJECTION INC [place] [address] [facility] [facility] ABDOMEN & 6 MEDICAL WOLFGANG PELVIS IMAGING W/O ASS CONTRAST MATERIAL RADIOLOGI 75904 [facility] CONN[facility] ALL C 6 MEDICAL EXAMINATI IMAGING ON [place]KLE [place] [address] [place] [address] ROBERTA YOUNG ABDOMEN & 6 MEDICAL MARCIA PELVIS IMAGING W/[place] [address] [facility] [place] YULI ABDOMEN & 6 RADIOLOGY RHO PELVIS W/[place] [address] [facility] [place] FU ABDOMEN & 6 RADIOLOGY CAR PELVIS W/O CONTRAST MATERIAL BASIC 64888 [facility] BUSTAMANTE METABOLIC 6 [facility] PANEL INC INC CALCIUM TOTAL COLLECTIO 67072 [facility] BUSTAMANTE N VENOUS 6 [facility] BLOOD INC INC VENIPUNCT URE BLOOD 98150 [facility] BUSTAMANTE COUNT 6 [facility]OS[facility] COMPLETE INC INC AUTO&AUTO DIFRNTL WBC UNCLASSIF J3490 [facility] BUSTAMANTE IED DRUGS 6 [facility] H[facility] INC INC THERAPEUT 28828 [facility] BUSTAMANTE IC 6 [facility] PROPHYLAC INC INC TIC/DX INJECTION SUBQ/IM THERAPEUT 34169 [facility] IC 6 N N INJECTION COMMUNTIY COMMUNTIY IV PUSH HOSPITA HOSPITA EACH NEW DRUG CULTURE 73422 [facility] BACTERIAL 6 N N COMMUNTIY COMMUNTIY QUANTTATI HOSPITA HOSPITA VE COLONY COUNT URINE CUL BACT 06476 [facility] AEROBIC 6 N N ADDL COMMUNTIY COMMUNTIY METHS HOSPITA HOSPITA DEFINITIV E EA ISOL SUSCEPTIB 94737 [facility] LTY STDY 6 N N ANTIMICRB COMMUNTIY COMMUNTIY IAL HOSPITA HOSPITA MICRO/AGA R DILUTJ URINE 03182 [facility] 6 N N TEST COMMUNTIY COMMUNTIY VISUAL HOSPITA HOSPITA COLOR CMPRSN METHS BLOOD 71159 [facility] COUNT 6 N N COMPLETE COMMUNTIY COMMUNTIY AUTO&AUT[place] [address] [facility] INFUSION 6 N N THERAPY/P COMMUNTIY COMMUNTIY ROPHYLAXI HOSPITA HOSPITA S /DX 1ST TO 1 HR URNLS DIP 97780 [facility] 6 N N STICK/TAB COMMUNTIY COMMUNTIY LET HOSPITA [place] [address] [facility] [facility] & 6 RADIOLOGY RAY PELVIS W/O CONTRAST MATERIAL COLLECTIO 01624 [facility] N VENOUS 6 N N BLOOD COMMUNTIY COMMUNTIY VENIPUNCT HOSPITA HOSPITA URE COMPREHEN 18514 [facility] SIVE 6 N N METABOLIC COMMUNTIY [place] [address] [facility] INFUSION 6 N N HYDRATION COMMUNTIY COMMUNTIY EACH [place] [address] [facility] INFUSION 6 N N THER COMMUNTIY COMMUNTIY PROPH HOSPITA HOSPITA AD[place]ENT[place] L [place] 1 [place] [address] [facility] INFUSION 5 N N HYDRATION COMMUNTIY COMMUNTIY EACH HOSPITA HOSPITA ADDITIONA L HOUR COMPREHEN 07186 [facility] SIVE 5 N N METABOLIC COMMUNTIY COMMUNTIY PANEL HOSPITA HOSPITA THER 39689 [facility] PROPH/DX 5 N N NJX EA COMMUNTIY COMMUNTIY SEQL IV HOSPITA HOSPITA PUSH SBST/DRUG FAC URNLS DIP 29728 [facility] 5 N N STICK/TAB COMMUNTIY COMMUNTIY LET HOSPITA HOSPITA [place] [address] [facility] LIPASE 5 N N COMMUNTIY COMMUNTIY HOSPITA HOSPITA BLOOD 79915 [facility] COUNT 5 N N COMPLETE COMMUNTIY COMMUNTIY AUTO&AUTO HOSPITA HOSPITA DIFRNTL WBC THERAPEUT 77107 [facility] IC 5 N N INJECTION COMMUNTIY COMMUNTIY IV PUSH [place] [address] [facility] INFUSION 5 N N THERAPY/P COMMUNTIY COMMUNTIY ROPHYLAXI HOSPITA HOSPITA S /DX 1ST TO 1 HR INJECTION J2550 [facility] 5 N N PROMETHAZ COMMUNTIY COMMUNTIY INE HCL HOSPITA HOSPITA UP TO 50 MG COLLECTIO 42233 [facility] N VENOUS 5 N N BLOOD COMMUNTIY COMMUNTIY VENIPUNCT HOSPITA HOSPITA URE INJECTION J2270 [facility] MORPHINE 5 N N SULFATE COMMUNTIY COMMUNTIY UP TO 10 HOSPITA HOSPITA MG CULTURE 44303 [facility] BACTERIAL 5 N N COMMUNTIY COMMUNTIY QUANTTATI HOSPITA HOSPITA VE COLONY COUNT URINE RADEX 07148 [facility] ABDOMEN 1 5 [facility] INC ANTEROPOS TERIOR VIEW COLLECTIO 56639 [facility] N VENOUS 5 N N BLOOD COMMUNTIY COMMUNTIY VENIPUNCT HOSPITA HOSPITA URE THER 01086 [facility] PROPH/DX 5 N N NJX EA COMMUNTIY COMMUNTIY SEQL IV HOSPITA HOSPITA PUSH SBST/DRUG FAC BASIC 34983 [facility] METABOLIC 5 N N PANEL COMMUNTIY COMMUNTIY CALCIUM HOSPITA HOSPITA TOTAL BLOOD 48075 [facility] COUNT 5 N N HEMOGLOBI COMMUNTIY COMMUNTIY N HOSPITA HOSPITA PROTHROMB 36229 [facility] IN TIME 5 N N COMMUNTIY COMMUNTIY HOSPITA HOSPITA INJECTION J1100 [facility] 5 N N DEXAMETHO COMMUNTIY COMMUNTIY SONE HOSPITA HOSPITA SODIUM PHOSPHATE 1 MG INJECTION J1170 [facility] 5 N N HYDROMORP COMMUNTIY COMMUNTIY RON UP HOSPITA HOSPITA TO 4 MG INJECTION J2001 [facility] 5 N N LIDOCAINE COMMUNTIY COMMUNTIY HCL HOSPITA HOSPITA INTRAVENO US INFUS 10 MG INJECTION J2704 [facility] [facility] PROPOFOL 5 N N 10 MG COMMUNTIY COMMUNTIY HOSPITA HOSPITA OBSERVATI 55755 [facility] ON CARE 5 SAMANTHA A GOP DISCHARGE PHYSICIAN SERVI MANAGEMEN T BLOOD 03483 [facility] COUNT 5 N N HEMATOCRI COMMUNTIY COMMUNTIY T HOSPITA HOSPITA INJECTION J2550 [facility] 5 N N PROMETHAZ COMMUNTIY COMMUNTIY INE HCL HOSPITA HOSPITA UP TO 50 MG INJ J2543 [facility] PIPERACIL 5 N N MEGHAN COMMUNTIY COMMUNTIY SOD/TAZOB HOSPITA HOSPITA ACTAM SOD 1 G/0.125 G INJ J2543 [facility] PIPERACIL 5 N N MEGHAN COMMUNTIY COMMUNTIY SOD/TAZOB HOSPITA HOSPITA ACTAM SOD 1 G/0.125 G INJECTION J2550 [facility] 5 N N PROMETHAZ COMMUNTIY COMMUNTIY INE HCL HOSPITA HOSPITA UP TO 50 MG DILATION 09359 VASQUE[facility] VASQUEZ NEPHROSTO 5 ALPESH ALPESH MY/URETER /URETHRA RS&I URINE 39358 [facility] 5 N N TEST COMMUNTIY COMMUNTIY VISUAL HOSPITA HOSPITA COLOR CMPRSN METHS SBSQ 61754 [facility] OBSERVATI 5 SAMANTHA A GOP ON PHYSICIAN CARE/DAY SERVI 35 MINUTES CYSTO 87764 [facility] W/INSERT 5 N N URETERAL COMMUNTIY COMMUNTIY STENT HOSPITA HOSPITA CULTURE 50577 [facility] BACTERIAL 5 N N COMMUNTIY COMMUNTIY QUANTTATI HOSPITA HOSPITA VE COLONY COUNT URINE INFUSION J7030 [facility] NORMAL 5 N N SALINE COMMUNTIY COMMUNTIY SOLUTION HOSPITA HOSPITA 1000 CC INJECTION J0696 [facility] 5 N N CEFTRIAXO COMMUNTIY COMMUNTIY NE SODIUM HOSPITA HOSPITA PER 250 MG ANES 59348 [facility] TRUR 5 ANESTHESI JERILYN FRAGMNTJ A GROUP MANJ&/RMV PS L URETERAL CALCULUS GUIDE C1769 [facility] WIRE 5 N N COMMUNTIY COMMUNTIY HOSPITA HOSPITA STENT C2617 [facility] NON-COR 5 N N TEMPORARY COMMUNTIY COMMUNTIY WITHOUT HOSPITA HOSPITA DELIVERY SYSTEM RINGERS J7120 [facility] LACTATE 5 N N INFUSION COMMUNTIY COMMUNTIY UP TO HOSPITA HOSPITA 1000 CC CYSTO 66585 [facility] W/URETERO 5 N N SCOPY COMMUNTIY COMMUNTIY W/RMVL/[place] [address] [facility] SCALF RITO ABDOMEN & 5 RADIOLOGY PELVIS W/O CONTRAST MATERIAL INJECTION J1170 [facility] 5 N N HYDROMORP COMMUNTIY COMMUNTIY RON UP HOSPITA HOSPITA TO 4 MG CALCULUS 81912 [facility] QUANTITAT 5 N N DEVYN COMMUNTIY [place] [address] [facility] INFUSION 5 N N THERAPY/P COMMUNTIY COMMUNTIY ROPHYLAXI HOSPITA HOSPITA S /DX 1ST TO 1 HR BLOOD 01935 [facility] COUNT 5 N N COMPLETE COMMUNTIY COMMUNTIY AUTO&AUTO HOSPITA HOSPITA DIFRNTL WBC TOBACCO 07380 [facility] USE 5 N N CESSATION COMMUNTIY COMMUNTIY HOSPITA HOSPITA INTERMEDI ATE 3-10 MINUTES COMPREHEN 26886 [facility] SIVE 5 N N METABOLIC COMMUNTIY COMMUNTIY PANEL HOSPITA HOSPITA THER 16506 [facility] PROPH/DX 5 N N NJX EA COMMUNTIY COMMUNTIY SEQL IV HOSPITA HOSPITA PUSH SBST/DRUG FAC COLLECTIO 18986 [facility] N VENOUS 5 N N BLOOD COMMUNTIY COMMUNTIY VENIPUNCT HOSPITA HOSPITA URE URNLS DIP 90648 [facility] 5 N N STICK/TAB COMMUNTIY COMMUNTIY LET HOSPITA HOSPITA REAGENT AUTO MICROSCOP Y URNLS DIP 85591 [facility] 5 N N STICK/TAB COMMUNTIY COMMUNTIY LET HOSPITA HOSPITA REAGENT AUTO MICROSCOP Y THER 23809 [facility] PROPH/DX 5 N N NJX EA COMMUNTIY COMMUNTIY SEQL IV HOSPITA HOSPITA PUSH SBST/DRUG FAC COMPREHEN 91165 [facility] SIVE 5 N N METABOLIC COMMUNTI[place] [address] [facility] ABDOMEN & 5 [facility] PELVIS IMAGING W/O ASS CONTRAST MATERIAL THERAPEUT 47403 [facility] IC 5 N N INJECTION COMMUNTIY COMMUNTIY IV PUSH HOSPITA HOSPITA EACH NEW DRUG BLOOD 01439 [facility] COUNT 5 N N COMPLETE COMMUNTIY COMMUNTIY AUTO&AUTO HOSPITA HOSPITA DIFRNTL WBC INTRODUCT 93314 [facility] ION 5 SAMANTHA JERILYN NEEDLE/IN EMERGENCY TRACATHET PHYS ER VEIN INJECTION J1170 [facility] 5 N N HYDROMORP COMMUNTIY COMMUNTIY RON UP HOSPITA HOSPITA TO 4 MG THROMBOPL 81329 [facility] ASTIN 5 N N TIME COMMUNTIY COMMUNTIY PARTIAL HOSPITA HOSPITA PLASMA/WH OLE BLOOD CULTURE 11322 [facility] BACTERIAL 5 N N BLOOD COMMUNTIY COMMUNTIY AEROBIC HOSPITA HOSPITA W/ID ISOLATES CULTURE 57834 [facility] BACTERIAL 5 N N COMMUNTIY COMMUNTIY QUANTTATI HOSPITA HOSPITA VE COLONY COUNT URINE INJECTION J2270 [facility] MORPHINE 5 N N SULFATE COMMUNTIY COMMUNTIY UP TO 10 HOSPITA HOSPITA MG INFUSION J7030 [facility] NORMAL 5 N N SALINE COMMUNTIY COMMUNTIY SOLUTION HOSPITA HOSPITA 1000 CC COLLECTIO 11507 [facility] N VENOUS 5 N N BLOOD COMMUNTIY COMMUNTIY VENIPUNCT HOSPITA HOSPITA [facility] [id number] [facility] OBSERVATI 5 N N ON COMMUNTIY COMMUNTIY SERVICE HOSPITA HOSPITA PER HOUR INITIAL 08505 [facility] OBSERVATI 5 SAMANTHA A GOP ON PHYSICIAN CARE/DAY SERVI 70 MINUTES INJ J2543 [facility] PIPERACIL 5 N N MEGHAN COMMUNTIY COMMUNTIY SOD/TAZOB HOSPITA HOSPITA ACTAM SOD 1 G/0.125 G INJECTION J2550 [facility] 5 N N PROMETHAZ COMMUNTIY COMMUNTIY INE HCL HOSPITA HOSPITA UP TO 50 MG THERAPEUT 45845 [facility] IC 5 N N PROPHYLAC COMMUNTIY COMMUNTIY TIC/DX HOSPITA HOSPITA INJECTION SUBQ/IM URINE 72405 [facility] 5 [facility] TEST INC INC VISUAL COLOR CMPRSN METHS URNLS DIP 50147 [facility] 5 [facility] STICK/TAB INC INC LET REAGENT AUTO MICROSCOP Y CULTURE 83961 [facility] B[facility] BACTERIAL 5 [facility] INC INC QUANTTATI VE COLONY COUNT URINE UNCLASSIF J3490 [facility] BUSTAMANTE IED DRUGS 5 [facility] INC INC INFUSION J7030 [facility] NORMAL 5 N N SALINE COMMUNTIY COMMUNTIY SOLUTION HOSPITA HOSPITA 1000 CC INJECTION J2270 [facility] MORPHINE 5 N N SULFATE COMMUNTIY COMMUNTIY UP TO 10 HOSPITA HOSPITA MG CULTURE 57748 [facility] BACTERIAL 5 N N COMMUNTIY COMMUNTIY QUANTTATI HOSPITA HOSPITA VE COLONY COUNT URINE URNLS DIP 91917 [facility] 5 N N STICK/TAB COMMUNTIY COMMUNTIY LET HOSPITA HOSPITA REAGENT AUTO MICROSCOP Y COLLECTIO 11391 [facility] N VENOUS 5 N N BLOOD COMMUNTIY COMMUNTIY VENIPUNCT HOSPITA HOSPITA URE INJECTION J2550 [facility] 5 N N PROMETHAZ COMMUNTIY COMMUNTIY INE HCL HOSPITA HOSPITA UP TO 50 MG URINE 32426 [facility] 5 N N TEST COMMUNTIY COMMUNTIY VISUAL HOSPITA HOSPITA COLOR CMPRSN METHS BLOOD 91778 [facility] COUNT 5 N N SMEAR COMMUNTIY COMMUNTIY MCRSCP HOSPITA HOSPITA W/[place] [address] [facility] LIPASE 5 N N COMMUNTIY COMMUNTIY HOSPITA HOSPITA ECG 35379 [facility] ROUTINE 5 N N ECG COMMUNTIY COMMUNTIY W/LEAST HOSPITA HOSPITA 12 [facility] TRCG ONLY W/O [place] [address] [facility] INFUSION 5 N N THERAPY/P COMMUNTIY COMMUNTIY ROPHYLAXI HOSPITA HOSPITA S /DX 1ST TO 1 HR THERAPEUT 95878 [facility] IC 5 N N INJECTION COMMUNTIY COMMUNTIY IV PUSH HOSPITA HOSPITA EACH NEW DRUG ECG 68905 [facility] CELLAROSI ROUTINE 5 SAMANTHA - YORBA ECG EMERGENCY PAT W/LEAST PHYS 12 LDS I&R ONLY BLOOD 92621 [facility] COUNT 5 N N COMPLETE COMMUNTIY [place] [address] [facility] INFUSION 5 N N HYDRATION COMMUNTIY COMMUNTIY EACH HOSPITA HOSPITA ADDITIONA L HOUR COMPREHEN 56936 [facility] SIVE 5 N N METABOLIC COMMUNTIY COMMUNTIY PANEL HOSPITA HOSPITA COMPREHEN 52055 [facility] SIVE 5 N N METABOLIC COMMUNTIY [place] [address] [facility] INFUSION 5 N N HYDRATION COMMUNTIY COMMUNTIY EACH [place] [address] [place] JUDD ABDOMEN & 5 RADIOLOGY LAURA PELVIS W/O CONTRAST MATERIAL BLOOD 84641 [facility] COUNT 5 N N COMPLETE COMMUNTIY COMMUNTIY AUTO&AUTO HOSP[place] [address] [facility] LIPASE 5 N N COMMUNTIY COMMUNTIY HOSPITA HOSPITA URINE 50177 [facility] 5 N N TEST COMMUNTIY COMMUNTIY VISUAL HOSPITA HOSPITA COLOR CMPRSN METHS COLLECTIO 69748 [facility] N VENOUS 5 N N BLOOD COMMUNTIY COMMUNTIY VENIPUNCT HOSPITA HOSPITA URE URNLS DIP 43420 [facility] 5 N N STICK/TAB COMMUNTIY COMMUNTIY LET HOSPITA HOSPITA REAGENT AUTO MICROSCOP Y CULTURE 18387 [facility] BACTERIAL 5 N N COMMUNTIY COMMUNTIY QUANTTATI HOSPITA HOSPITA VE COLONY COUNT URINE INJECTION J2270 [facility] MORPHINE 5 N N SULFATE COMMUNTIY COMMUNTIY UP TO 10 HOSPITA HOSPITA MG INFUSION J7030 [facility] NORMAL 5 N N SALINE COMMUNTIY COMMUNTIY SOLUTION HOSPITA HOSPITA 1000 CC THER 47682 [facility] PROPH/DX 5 N N NJX IV COMMUNTIY COMMUNTIY PUSH HOSPITA HOSPITA SINGLE/1S T SBST/DRUG UNCLASSIF J3490 [facility]UST[facility]ANTE IED DRUGS 5 [place] [address] [facility] BUSTAMANTE AMYLASE 5 [facility] [place] [address] [facility] BUSTAMANTE LIPASE 5 [facility] INC INC BLOOD 41785 [facility]UST[facility]AN[facility] COUNT 5 [facility] COMPLETE INC INC AUTO&[place] [address] [facility] ABDOMEN & 5 MED[facility] PELVIS IMAGING W/O ASS CONTRAST MATERIAL COMPREHEN 33307 [facility]TE SIVE 5 [facility] METABOLIC INC INC PANEL URNLS DIP 06242 [facility]USTAMANTE 5 [facility] STICK/TAB INC INC LET REAGENT AUTO MICROSCOP Y URINE 48327 [facility]USTAMANTE 5 [facility] TEST INC INC VISUAL COLOR CMPRSN METHS CULTURE 95031 [facility]UST[facility]TE BACTERIAL 5 [facility] INC INC QUANTTATI VE COLONY COUNT URINE UNCLASSIF J3490 [facility] BUSTAMANTE IED DRUGS 5 [facility] INC INC BLOOD 58427 DIANNA PALACIOSON COUNT 5 [facility] COMPLETE INC INC AUTO&[place] [address] DIANNA BUSTAMANTE LIPASE 5 [facility] INC INC COMPREHEN 48421 [facility] BUSTAMANTE SIVE 5 [facility] METABOLIC INC INC PANEL URINE 83624 DI[facility] BUSTAMANTE 5 [facility] TEST INC INC VISUAL COLOR CMPRSN METHS URNLS DIP 33140 [facility]USTAMANTE 5 [facility] STICK/TAB INC INC LET REAGENT AUTO MICROSCOP Y COLLECTIO 10694 [facility] BUSTAMANTE N VENOUS 5 [facility] [place] [address] DIANNA BUSTAMANTE ABDOMEN & 5 [facility] PELVIS INC INC W/O CONTRAST MATERIAL URNLS DIP 60278 [facility]USTAMANTE 5 [facility] STICK/TAB INC INC LET REAGENT AUTO MICROSCOP Y URINE 73487 [facility]USTAMANTE 5 [facility] TEST INC INC VISUAL COLOR CMPRSN METHS INJECTION J1200 [facility] 5 Y Y [facility] RAMINE HCL UP TO 50 MG INJECTION J2270 [facility] MORPHINE 5 Y Y SULFATE [facility] UP TO 10 MG INJECTION J1956 [facility] 5 Y Y LEVOFLOXA [facility] [address]Y [address] [place] [address] [facility] LIPASE 5 Y Y [facility] BLOOD 15389 [facility] COUNT 5 Y Y COMPLETE [facility] [place] [address] [facility] INFUSION 5 Y Y THERAPY/P [facility] ROPHYLAXI S /DX 1ST TO 1 HR THERAPEUT 37547 [facility] IC 5 Y Y INJECTION [facility] IV PUSH EACH NEW DRUG COMPREHEN 50562 [facility] SIVE 5 Y Y METABOLIC [facility] PANEL THER 81879 [facility] PROPH/DX 5 Y Y NJX EA [facility] SEQL IV PUSH SBST/DRUG FAC INJECTION J2270 [facility] MORPHINE 5 Y Y SULFATE [facility] UP TO 10 MG INFUSION J7030 [facility] NORMAL 5 Y Y SALINE [facility] SOLUTION 1000 CC URINE 53569 [facility] 5 Y Y TEST [facility] VISUAL COLOR CMPRSN METHS URNLS DIP 58377 [facility] 5 Y Y STICK/TAB HOSPITAL HOSPITAL LET REAGENT AUTO MICROSCOP Y INJECTION J2765 [facility] 5 Y Y [facility] AMIDE H[place] [address] [place] [address] [place] KOSTELIC ABDOMEN & 5 RADIOLOGY ROBERT PELVIS W/[place] [address] DI[facility] BUSTAMANTE ABDOMEN & 5 [facility] PELVIS INC INC W/O CONTRAST MATERIAL COMPREHEN 85032 [facility] SIVE 5 [facility] [place] [address] [facility]AN[facility] BUSTAMANTE INFUSION 5 [facility] THERAPY/P INC INC ROPHYLAXI S /DX 1ST TO 1 HR BLOOD 32815 [facility]UST[facility]TE COUNT 5 [facility] COMPLETE INC INC AUTO&AUTO DIFRNTL WBC PROTHROMB 36500 DI[facility] BUSTAMANTE IN TIME 5 [place] [address] DIAN[facility] BUSTAMANTE LIPASE 5 [place] [address] [facility] BUSTAMANTE AMYLASE 5 [facility] INC INC URNLS DIP 26952 [facility]USTAMANTE 5 [facility] STICK/TAB INC INC LET REAGENT AUTO MICROSCOP Y UNCLASSIF J3490 [facility] BUSTAMANTE IED DRUGS 5 [facility] INC INC CULTURE 28901 [facility] B[facility] BACTERIAL 5 [facility] INC INC QUANTTATI VE COLONY COUNT URINE THROMBOPL 11646 [facility] BUSTAMANTE ASTIN 5 [facility] TIME INC INC PARTIAL PLASMA/WH OLE BLOOD THERAPEUT 92390 [facility]UST[facility]TE IC 5 [facility] INJECTION INC INC IV PUSH EACH NEW DRUG THERAPEUT 63435 [facility] IC 5 N N INJECTION COMMUNTIY COMMUNTIY IV [place] [address] [facility] ABDOMEN & 5 N N PELVIS COMMUNTIY COMMUNTIY W/CONTRAS HOSPITA HOSPITA T MATERIAL CULTURE 22149 [facility] BACTERIAL 5 N N COMMUNTIY COMMUNTIY QUANTTATI HOSPITA HOSPITA VE COLONY COUNT URINE INJECTION J2270 [facility] MORPHINE 5 N N SULFATE COMMUNTIY COMMUNTIY UP TO [address] [place] [address] [facility] AMYLASE 5 N N COMMUNTIY COMMUNTIY HOSPITA HOSPITA INJECTION J2550 [facility] 5 N N PROMETHAZ COMMUNTIY COMMUNTIY INE HCL HOSPITA HOSPITA UP TO 50 MG URINE 86643 [facility] 5 N N TEST COMMUNTIY COMMUNTIY VISUAL HOSPITA [place] [address] [facility] LIPASE 5 N N COMMUNTIY COMMUNTIY HOSPITA HOSPITA BLOOD 68938 [facility] COUNT 5 N N COMPLETE COMMUNTIY COMMUNTIY AUTO&AUTO HOSPITA HOSPITA DIFRNTL WBC LOCM Q9967 [facility] [phone] 5 N N MG/ML COMMUNTIY COMMUNTIY IODINE HOSPITA HOSPITA CONCENTRA TION PER ML URNLS DIP 86686 [facility] 5 N N STICK/TAB COMMUNTIY COMMUNTIY LET HOSPITA HOSPITA REAGENT AUTO MICROSCOP Y COMPREHEN 92124 [facility] SIVE 5 N N METABOLIC COMMUNTIY COMMUNTIY PANEL HOSPITA HOSPITA COMPREHEN 05801 [facility]UST[facility]TE SIVE 5 [facility] METABOLIC INC INC PANEL BLOOD 61894 [facility]UST[facility]ANTE COUNT 5 [facility] COMPLETE INC INC AUTO&[place] [address] [facility] BUST[facility]ANTE LIPASE 5 [facility] INC INC URINE 19955 [facility]UST[facility]ANTE 5 [facility] TEST INC INC [place] [address] [facility] BUSTAMANTE AMYLASE 5 [facility] INC INC URNLS DIP 57204 [facility]USTAMANTE 5 [facility] STICK/TAB INC INC LET REAGENT AUTO MICROSCOP Y CULTURE 92664 [facility] BACTERIAL 5 [facility] INC INC QUANTTATI VE COLONY COUNT URINE UNCLASSIF J3490 DI[facility]NA BUSTAMANTE IED DRUGS 5 [facility] INC INC UNCLASSIF J3490 [facility] BUST[facility] IED DRUGS 5 [facility] INC INC URINE 48622 [facility]USTAMANTE 5 [facility] TEST INC INC VISUAL COLOR CMPRSN METHS URNLS DIP 77582 [facility]USTAMANTE 5 [facility] STICK/TAB INC [place] [address] [facility] BUST[facility]TE ABDOMEN & 5 [facility] PELVIS INC INC W/O CONTRAST MATERIAL UNCLASSIF J3490 [facility] BUSTAMANTE IED DRUGS 5 [facility] INC INC THER 39547 [facility] BUST[facility]ANTE PROPH/DX 5 [facility] NJX IV INC INC PUSH SINGLE/1S T SBST/DRUG THERAPEUT 97508 [facility] IC 5 [facility] INJECTION INC INC IV PUSH EACH NEW DRUG RADIOLOGI 35745 [facility] BUST[facility]ANTE C 5 [facility] EXAMINATI INC INC ON TIBIA & [place] [address] [place] [address] [facility] KAYLA ABDOMEN & 5 [facility] PELVIS IMAGING W/O ASS CONTRAST MATERIAL Encounters Encounter Start End Date Code Location Performer Type Date OFFICE 70549 Lynn MOSS 7 7 JAVIER ROMAN T VISIT PSC 15 MINUTES EMERGENCY 89557 LÁZARO DEAN DEPT 7 7 PHYSICIAN VISIT S, [facility] HIGH SEVERITY& THREAT [facility] DIANNA Viveros 7 [facility] OUTPATIEN INC T EMERGENCY 41149 DIANNA 7 7 [facility] DEPARTMEN INC T VISIT LOW/MODER SEVERITY EMERGENCY 90729 LÁZARO PATE 7 7 PHYSICIAN JAMEELMEN S, [facility] T VISIT MODERATE SEVERITY EMERGENCY 37148 Jackeline GRAY 7 PHYSICIAN JR DEPARTMEN , [facility] T VISIT HIGH/URGE NT SEVERITY OFFICE 31828 Lynn MOSS 7 7 JAVIER ROMAN T VISIT PSC 25 MINUTES EMERGENCY 27151 DI[facility] DEPT 7 7 [facility] VISIT INC HIGH SEVERITY& THREAT [facility] DI[facility] - 7 7 [facility] OUTPATIEN INC T EMERGENCY 25313 [facility] 7 7 SAMANTHA VISIT EMERGENCY HIGH PHYS SEVERITY& THREAT [facility] EMERGENCY 20187 LÁZARO WALTON DEPT 7 7 PHYSICIAN U VISIT S, PLLC HIGH SEVERITY& THREAT [facility] OFFICE 06114 A Kaelyn RICK OUTPATIDAVIDA 7 7 JAVIER ROMAN T VISIT PSC 15 MINUTES HOSPITAL DIANNA - 7 7 [facility] OUTPATIEN INC T OFFICE 94044 DI[facility] OUTPATIDAVIDA 7 7 [facility] T VISIT 5 INC MINUTES OFFICE 01419 A Kaelyn MOSS 7 7 JAVIER ROMAN T VISIT PSC 15 MINUTES EMERGENCY 45498 [facility] 7 7 SAMANTHA DEPARTMEN EMERGENCY T VISIT PHYS HIGH/URGE NT SEVERITY EMERGENCY 32191 LÁZARO PATE 7 7 PHYSICIAN DEPARTMEN S, PLLC T VISIT HIGH/URGE NT SEVERITY HOSPITAL DIANNA - 7 7 [facility] OUTPATIEN INC T EMERGENCY 58735 [facility] 7 7 [facility] DEPARTMEN INC T VISIT LOW/MODER SEVERITY EMERGENCY 05193 [facility] 7 7 SAMANTHA DEPARTMEN EMERGENCY T VISIT PHYS HIGH/URGE NT SEVERITY EMERGENCY 92762 [facility] DEPT 7 7 PHYSICIAN U VISIT S, PLLC HIGH SEVERITY& THREAT FUNCJ EMERGENCY 00569 LÁZAR[facility] P[facility] 7 7 PHYSICIAN DEPARTMEN S, PLLC T VISIT HIGH/URGE NT SEVERITY EMERGENCY 91392 [facility] 6 6 N DEPARTMEN COMMUNTIY T VISIT HOSPITA MODERATE SEVERITY [facility]GENCY 39134 [facility] [place] DEPARTMEN EMERGENCY T VISIT PHYS HIGH/URGE NT SEVERITY HOSPITAL [facility] - 6 6 N OUTPATIEN COMMUNTIY T HOSPITA EMERGENCY 67947 [facility] DEPT 6 6 [place] VISIT EMERGENCY HIGH SERV SEVERITY& THREAT [facility] H[facility]PITAL [facility] - 6 6 [facility] OUTPATIEN INC T EMERGENCY 55091 [facility] 6 6 PHYSICIAN U DEPARTMEN S, PLLC T VISIT HIGH/URGE NT SEVERITY EMERGENCY 07664 [facility] [address] [facility] INC T VISIT LIMITED/M INOR PROB EMERGENCY 07905 [facility] DEPT 6 6 SAMANTHA SCO VISIT EMERGENCY HIGH PHYS SEVERITY& THREAT [facility] OFFICE 63784 A C NEELAM LUCAS OUTPATIEN 6 6 JAVIER ROMAN T VISIT PSC 15 MINUTES EMERGENCY 43468 [facility] DEPT 6 6 PHYSICIAN U MARCIA VISIT S, PLLC HIGH SEVERITY& [facility]AT [facility]27 A C MERLINE OUTPATIEN 6 6 [facility] T VISIT PSC 15 MINUTES OFFICE 42070 A C [facility] OUTPATIEN 6 6 [facility]IER [facility] T VISIT PSC 15 MINUTES HOSPITAL [facility] - 6 6 [facility] OUTPATIEN INC T OFFICE 12833 A C MERLINE OUTPATIEN 6 6 [facility]IER [facility] T VISIT PSC 15 MINUTES OFFICE 95398 A C CONNIE OUTPATIEN 6 6 JAVIER LOGAN T VISIT PSC 15 MINUTES OFFICE 46509 A C MERLINE OUTPATIEN 6 6 [facility] T VISIT PSC 15 MINUTES HOSPITAL DI[facility] - 6 6 [facility] OUTPATIEN INC T OFFICE 23780 A C MERLINE OUTPATIEN 6 6 [facility]IER [facility] T VISIT PSC 15 MINUTES OFFICE 53144 A C MERLINE OUTPATIEN 6 6 [facility]IER [facility] T VISIT PSC 15 MINUTES OFFICE 19762 A C MERLINE OUTPATIEN 6 6 [facility]IER [facility] T VISIT PSC 15 MINUTES EMERGENCY 36067 LÁZARO PATE 6 6 PHYSICIAN LYNDA DEPARTMEN S, [facility] T VISIT HIGH/URGE NT SEVERITY HOSPITAL [facility] - 6 6 [facility] OUTPATIEN INC T OFFICE 02601 A C CONNIE OUTPATIEN 6 6 JAVIER LOGAN T VISIT PSC 25 MINUTES HOSPITAL [facility] - 6 6 [facility] OUTPATIEN INC T OFFICE 95034 A C MERLINE OUTPATIEN 6 6 JAVIER [facility] T VISIT PSC 15 MINUTES EMERGENCY 17231 [place] SAMEERA HENNESSYI 6 6 MEDICAL DEPARTMEN SERV T VISIT FOUNDATIO MODERATE N SEVERITY EMERGENCY 18472 [facility] FAUSTINO JAM 6 6 [place] DEPARTMEN EMERGENCY T VISIT PHYS HIGH/URGE NT SEVERITY OFFICE 58372 A C MERLINE OUTPATIEN 6 6 JAVIER CHI T NEW 30 PSC MINUTES EMERGENCY 52520 JOCY TAM 6 6 [facility] DEPARTMEN SERV T VISIT FOUNDATIO HIGH/URGE N NT SEVERITY EMERGENCY 13256 [facility] SON BAB 6 6 [place]THA DEPARTMEN EMERGENCY T VISIT PHYS HIGH/URGE NT SEVERITY EMERGENCY 20970 LÁZARO PATE DEPT 6 6 PHYSICIAN LYNDA VISIT S, [facility] HIGH SEVERITY& THREAT FUNCJ EMERGENCY 08738 [facility] 6 6 [facility] DEPARTMEN INC T VISIT HIGH/URGE NT SEVERITY [facility]OSPITAL [facility] - 6 6 [facility] OUTPATIEN INC T EMERGENCY 64141 LÁZARO W[facility] [address] [facility] S, [facility] T VISIT MODERATE SEVERITY EMERGENCY 66987 [facility] ROSALES SCO [address] [facility] EMERGENCY T VISIT SERV HIGH/URGE NT SEVERITY EMERGENCY 35342 LÁZARO PATE 6 6 PHYSICIAN [facility] T VISIT HIGH/URGE NT SEVERITY EMERGENCY 46709 LÁZARO W[facility] [address] [facility] T VISIT MODERATE SEVERITY EMERGENCY 20666 LÁZARO PATE 6 6 PHYSICIAN [facility] S, [facility] T VISIT HIGH/URGE NT SEVERITY EMERGENCY 98078 LÁZARO HOWELL 6 6 PHYSICIAN [facility] T VISIT HIGH/URGE NT SEVERITY EMERGENCY 48564 DANNY ROYAL 6 6 SAMANTHA [facility] EMERGENCY T VISIT PHYS HIGH/URGE NT SEVERITY EMERGENCY 51241 LÁZARO CHACON DEPT 6 6 PHYSICIAN FOR VISIT [facility] HIGH SEVERITY& THREAT [facility]J EMERGENCY 28292 LÁZARO PATE 6 6 PHYSICIAN [facility] T VISIT HIGH/URGE NT SEVERITY EMERGENCY 30144 [facility] ROSAURA 6 6 SAMANTHA [facility] EMERGENCY T VISIT PHYS HIGH/URGE NT SEVERITY EMERGENCY 07052 DIANNA [address] [facility] INC T VISIT MODERATE SEVERITY EMERGENCY 82332 LÁZARO LYNNE 6 6 PHYSICIAN [facility] T VISIT HIGH/URGE NT SEVERITY HOSPITAL DIANNA - 6 6 [facility] OUTPATIEN INC T EMERGENCY 66281 [facility] [address] [facility] COMMUNTIY T VISIT HOSPITA HIGH/URGE NT SEVERITY HOSPITAL GEORGEW - 6 6 N OUTPATIEN COMMUNTIY T HOSPITA EMERGENCY 12521 [facility] ILANA DEPT 6 6 SAMANTHA MON VISIT EMERGENCY HIGH PHYS SEVERITY& THREAT [facility] - 5 5 N OUTPATIEN COMMUNTIY T HOSPITA EMERGENCY 14934 [facility] 5 5 N DEPARTMEN COMMUNTIY T VISIT HOSPITA HIGH/URGE NT SEVERITY EMERGENCY 12282 [facility] DEPT 5 5 SAMANTHA VISIT EMERGENCY HIGH SERV SEVERITY& THREAT [facility] DIANNA - 5 5 [facility] OUTPATIEN INC T EMERGENCY 82160 LÁZARO PATE DEPT 5 5 PHYSICIAN LYNDA VISIT S, PLLC HIGH SEVERITY& THREAT FUN EMERGENCY 27968 DIANNA 5 5 [facility] DEPARTMEN INC T VISIT LOW/MODER SEVERITY EMERGENCY 42409 [facility] DEPT 5 5 N VISIT COMMUNTIY HIGH HOSPITA SEVERITY& THREAT [facility] SABIHA - 5 5 N OUTPATIEN COMMUNTIY T HOSPITA EMERGENCY 00960 LÁZARO OROZCO 5 5 PHYSICIAN [facility] DEPART[facility], [facility] T VISIT MODERATE SEVERITY EMERGENCY 49155 DIANNA 5 5 [facility] INC T VISIT LOW/MODER SEVERITY HOSPITAL DIANNA - 5 5 [facility] OUTPATIEN INC T EMERGENCY 71038 LÁZARO PATE 5 5 PHYSICIAN LYNDA DEPARTMEN [facility], PLL[facility] T VISIT HIGH/URGE NT SEVERITY HOSPITAL DIANNA - 5 5 [facility] OUTPATIEN INC T EMERGENCY 16891 LÁZARO WALTON 5 5 PHYSICIAN U MARCIA DEPARTMEN S, PLLC T VISIT MODERATE SEVERITY EMERGENCY 56136 DIANNA 5 5 [facility] DEPART[facility] INC T VISIT LOW/MODER SEVERITY EMERGENCY 12007 TAMMIE 5 5 N DEPARTMEN COMMUNTIY T VISIT HOSPITA HIGH/URGE NT SEVERITY HOSPITAL TAMMIE - 5 5 N OUTPATIEN COMMUNTIY T HOSPITA EMERGENCY 80403 [facility] CELLAROSI DEPT 5 5 SAMANTHA - YORBA VISIT EMERGENCY PAT HIGH PHYS SEVERITY& THREAT [facility] EMERGENCY 88337 [facility] SANCHEZ DEPT 5 5 SAMANTHA JERILYN VISIT EMERGENCY HIGH PHYS SEVERITY& THREAT [facility] HOSPITAL [facility] - 5 5 N OUTPATIEN COMMUNTIY T HOSPITA EMERGENCY 40424 [facility] 5 5 N DEPARTMEN COMMUNTIY T VISIT HOSPITA HIGH/URGE NT SEVERITY EMERGENCY 02128 LÁZARO TELLES 5 5 PHYSICIAN [facility], [facility] MODERATE SEVERITY HOSPITAL DIANNA - 5 5 [facility] OUTPATIEN INC T EMERGENCY 45925 DIANNA 5 5 [facility] DEPARTMEN INC T VISIT LIMITED/M INOR PROB EMERGENCY 03044 LÁZARO PATE DEPT 5 5 PHYSICIAN LYNDA VISIT S, PLLC HIGH SEVERITY& THREAT [facility] HOSPITAL DIANNA - 5 5 [facility] OUTPATIEN INC T EMERGENCY 07961 DIANNA 5 5 [facility] DEPARTMEN INC T VISIT LOW/MODER SEVERITY EMERGENCY 22859 DIANNA 5 5 [facility]PART[facility] INC T VISIT MODERATE SEVERITY EMERGENCY 81792 LÁZARO OLVERA 5 5 PHYSICIAN DEPARTMEN S, PLLC T VISIT HIGH/URGE NT SEVERITY HOSPITAL DIANNA - 5 5 [facility] OUTPATIEN INC T EMERGENCY 15550 LÁZARO PATE 5 5 PHYSICIAN LYNDA DEPARTMEN S, PLL[facility] T VISIT HIGH/URGE NT SEVERITY HOSPITAL DINANA - 5 5 [facility] OUTPATIEN INC T EMERGENCY 96946 DIANNA 5 5 [facility] INC T VISIT LOW/MODER SEVERITY [facility] 66171 [facility] 5 5 Y [facility] T VISIT HIGH/URGE NT SEVERITY EMERGENCY [address] [facility] [address] [facility] EMERGENCY T VISIT PHYS HIGH/URGE NT SEVERITY EMERGENCY 87166 [facility] 5 5 [facility] HIGH/URGE NT SEVERITY [facility]OSP[facility] DIAN[facility] - 5 5 [facility] OUTPATIEN INC T EMERGENCY 12051 LÁZARO WALTON DEPT 5 5 PHYSICIAN U MARCIA VISIT S, [facility] HIGH SEVERITY& THREAT [facility]OSPITAL [facility] - 5 [facility] EMERGENCY 25612 [facility] [address] [facility] COMMUNTI T VISIT HOSPITA HIGH/URGE NT SEVERITY EMERGENCY 98294 [facility] DEPT 5 5 SAMANTHA COREY VISIT EMERGENCY HIGH PHYS SEVERITY& THREAT [facility] EMERGENCY 36599 DIANNA 5 5 [facility] T VISIT LOW/MODER SEVERITY EMERGENCY 83122 LÁZARO PATE 5 5 PHYSICIAN [facility] T VISIT HIGH/URGE NT SEVERITY HOSPITAL DIANNA - 5 5 [facility] T HOSPITAL DIANNA - 5 5 [facility] OUTPATIEN INC T EMERGENCY 47069 IDANNA PATE 5 5 [facility] T VISIT P MODERATE SEVERITY EMERGENCY 40366 DIANNA 5 5 [facility] INC T VISIT LOW/MODER SEVERITY EMERGENCY 84701 DIANNA ARBOLEDA 5 5 [facility] T VISIT P LOW/MODER SEVERITY HOSPITAL DIANNA - 5 5 [facility] OUTPATIEN INC T EMERGENCY 02975 DIANNA 5 5 [facility] INC T VISIT HIGH/URGE NT SEVERITY EMERGENCY 64557 DIANNA 5 5 [facility] INC T VISIT LOW/MODER SEVERITY EMERGENCY 95615 DIANNA DAEN, 5 5 [facility] T VISIT P MODERATE SEVERITY [facility] DIANNA Meza 5 [facility]
--- OUTSIDE RECORDS SUMMARY | 2017-03-23 15:44 | External Medical Summary Rpt | CCD ---
Demographics Preferred Language Macedonian Marital Status Unknown Christian Affiliation Unknown Race Unknown Ethnic Group Unknown Author Author , ROBERTO MEJIA Address Unknown Phone Immunization No patient found.
--- OUTSIDE RECORDS SUMMARY | 2017-03-23 15:44 | External Medical Summary Rpt | CCD ---
Demographics Preferred Language Latvian Marital Status Unknown Rastafari Affiliation Unknown Race Unknown Ethnic Group Unknown Author Author , ROBERTO MEJIA Address Unknown Phone Immunization No patient found.
--- OUTSIDE RECORDS SUMMARY | 2017-03-23 15:45 | External Medical Summary Rpt ---
Author Author ROBERTO Valdez, [employer] Organization [employer] Address Unknown Phone Unavailable Results Urinalysis dipstick W Reflex Microscopic panel in Urine Observa Value Referen Units Interpr Notes Date tion ce etation Range Appeara CLEAR CLEAR No No No Mar 21 nce of informa informa informa 2017 Urine tion in tion in tion in 12:24 source source source AM data data data Bilirub NEGATIV NEG No No No Mar 21 in E informa informa informa 2016 [Presen tion in tion in tion in 12:24 ce] in source source source AM Urine data data data by Test strip Erythro 2+ NEG No Abnorma No Mar 21 cytes informa l informa 2016 [Presen tion in tion in 12:24 ce] in source source AM Urine data data Color YELLOW YELLOW No No No Mar 21 of informa informa informa 2016 Urine tion in tion in tion in 12:24 source source source AM data data data Glucose NEG No No No Mar 21 [Mass/vol informati informati informati 2016 ume] in on in on in on in 12:24 AM Urine by source source source Test data data data strip Ketones NEGATIV NEG mg/dL No No Mar 21 E informa informa 2016 [Presen tion in tion in 12:24 ce] in source source AM Urine data data by Automat ed test strip Mucus 3+ NEG No Abnorma No Mar 21 [Presen informa l informa 2016 ce] in tion in tion in 12:24 Urine source source AM sedimen data data t by Light microsc opy Nitrite NEGATIV NEG No No No Mar 21 E informa informa informa 2016 [Presen tion in tion in tion in 12:24 ce] in source source source AM Urine data data data by Test strip pH of 5.0 - 8.5 No Normal No Mar 21 Urine informati informati 2017 on in on in 12:24 AM source source data data Protein NEG mg/dL No No Mar 21 [Mass/vol informati informati 2016 ume] in on in on in 12:24 AM Urine by source source Automated data data test strip Specific 1.005 - No Normal No Mar 21 gravity 1.030 informati informati 2016 of Urine on in on in 12:24 AM source source data data Urobili 0.2 NEG E.U./dL No No Mar 21 nogen informa informa 2016 [Presen tion in tion in 12:24 ce] in source source AM Urine data data by Test strip Urinalysis dipstick W Reflex Microscopic panel in Urine Observa Value Referen Units Interpr Notes Date tion ce etation Range Appeara CLOUDY CLEAR No No No Sep 20 nce of informa informa informa 2016 Urine tion in tion in tion in 3:00 PM source source source data data data Bacteri 2+ O No No No Sep 20 a informa informa informa 2016 [Presen tion in tion in tion in 3:00 PM ce] in source source source Urine data data data sedimen t by Light microsc opy Bilirub NEGATIV NEG No No No Sep 20 in E informa informa informa 2016 [Presen tion in tion in tion in 3:00 PM ce] in source source source Urine data data data by Test strip Erythro 2+ NEG No Abnorma No Sep 20 cytes informa l informa 2016 [Presen tion in tion in 3:00 PM ce] in source source Urine data data Color YELLOW YELLOW No No No Sep 20 of informa informa informa 2016 Urine tion in tion in tion in 3:00 PM source source source data data data Glucose NEG No No No Sep 20 [Mass/vol informati informati informati 2016 3:00 ume] in on in on in on in PM Urine by source source source Test data data data strip Ketones NEGATIV NEG mg/dL No No Sep 20 E informa informa 2016 [Presen tion in tion in 3:00 PM ce] in source source Urine data data by Automat ed test strip Mucus 2+ NEG No Abnorma No Sep 20 [Presen informa l informa 2016 ce] in tion in tion in 3:00 PM Urine source source sedimen data data t by Light microsc opy Nitrite NEGATIV NEG No No No Sep 20 E informa informa informa 2017 [Presen tion in tion in tion in 3:00 PM ce] in source source source Urine data data data by Test strip pH of 5.0 - 8.5 No Normal No Sep 20 Urine informati informati 2017 3:00 on in on in PM source source data data Protein NEG mg/dL No No Sep 20 [Mass/vol informati informati 2017 3:00 ume] in on in on in PM Urine by source source Automated data data test strip Erythro OCC 0 rbc/hpf No No Sep 20 cytes informa informa 2017 [Presen tion in tion in 3:00 PM ce] in source source Urine data data sedimen t by Light microsc opy Specific 1.005 - No Normal No Sep 20 gravity 1.030 informati informati 2017 3:00 of Urine on in on in PM source source data data Epithel 20-50 0 - 5 #/hpf No No Sep 20 ial informa informa 2017 cells.s tion in tion in 3:00 PM quamous source source data data [Presen ce] in Urine sedimen t by Microsc opy high power field Urobili 0.2 NEG E.U./dL No No Sep 20 nogen informa informa 2016 [Presen tion in tion in 3:00 PM ce] in source source Urine data data by Test strip Leukocy [10 O wbc/hpf No No Sep 20 paulo wbc/hpf informa informa 2016 [#/volu ; 20 tion in tion in 3:00 PM me] in wbc/hpf source source Urine ] data data Urinalysis dipstick W Reflex Microscopic panel in Urine Observa Value Referen Units Interpr Notes Date tion ce etation Range Appeara CLOUDY CLEAR No No No Sep 20 nce of informa informa informa 2017 Urine tion in tion in tion in 3:00 PM source source source data data data Bilirub NEGATIV NEG No No No Sep 20 in E informa informa informa 2017 [Presen tion in tion in tion in 3:00 PM ce] in source source source Urine data data data by Test strip Erythro 2+ NEG No Abnorma No Sep 20 cytes informa l informa 2016 [Presen tion in tion in 3:00 PM ce] in source source Urine data data Color YELLOW YELLOW No No No Sep 20 of informa informa informa 2017 Urine tion in tion in tion in 3:00 PM source source source data data data Glucose NEG No No No Sep 20 [Mass/vol informati informati informati 2017 3:00 ume] in on in on in on in PM Urine by source source source Test data data data strip Ketones NEGATIV NEG mg/dL No No Sep 20 E informa informa 2016 [Presen tion in tion in 3:00 PM ce] in source source Urine data data by Automat ed test strip Mucus 2+ NEG No Abnorma No Sep 20 [Presen informa l informa 2016 ce] in tion in tion in 3:00 PM Urine source source sedimen data data t by Light microsc opy Nitrite NEGATIV NEG No No No Sep 20 E informa informa informa 2016 [Presen tion in tion in tion in 3:00 PM ce] in source source source Urine data data data by Test strip pH of 5.0 - 8.5 No Normal No Sep 20 Urine informati informati 2017 3:00 on in on in PM source source data data Protein NEG mg/dL No No Sep 20 [Mass/vol informati informati 2017 3:00 ume] in on in on in PM Urine by source source Automated data data test strip Specific 1.005 - No Normal No Sep 20 gravity 1.030 informati informati 2017 3:00 of Urine on in on in PM source source data data Urobili 0.2 NEG E.U./dL No No Sep 20 nogen informa informa 2017 [Presen tion in tion in 3:00 PM ce] in source source Urine data data by Test strip Urinalysis dipstick W Reflex Microscopic panel in Urine Observa Value Referen Units Interpr Notes Date tion ce etation Range Appeara CLOUDY CLEAR No No No Sep 20 nce of informa informa informa 2017 Urine tion in tion in tion in source source source data data data Amorpho 1+ NONE No No No Sep 20 us informa informa informa 2017 sedimen tion in tion in tion in t source source source [Presen data data data ce] in Urine sedimen t by Light microsc opy Bacteri 2+ O No No No Sep 20 a informa informa informa 2017 [Presen tion in tion in tion in ce] in source source source Urine data data data sedimen t by Light microsc opy Bilirub NEGATIV NEG No No No Sep 20 in E informa informa informa 2017 [Presen tion in tion in tion in ce] in source source source Urine data data data by Test strip Erythro 3+ NEG No Abnorma No Sep 20 cytes informa l informa 2017 [Presen tion in tion in ce] in source source Urine data data Calcium 1+ NONE #/hpf No No Sep 20 informa informa 2017 oxalate tion in tion in source source crystal data data s [Presen ce] in Urine sedimen t by Light microsc opy Color DK YELLOW No No No Sep 20 of YELLOW informa informa informa 2017 Urine tion in tion in tion in source source source data data data Glucose NEG No No No Sep 20 [Mass/vol informati informati informati 2017 ume] in on in on in on in Urine by source source source Test data data data strip Ketones NEGATIV NEG mg/dL No No Sep 20 E informa informa 2017 [Presen tion in tion in ce] in source source Urine data data by Automat ed test strip Mucus 3+ NEG No Abnorma No Sep 20 [Presen informa l informa 2017 ce] in tion in tion in Urine source source sedimen data data t by Light microsc opy Nitrite NEGATIV NEG No No No Sep 20 E informa informa informa 2017 [Presen tion in tion in tion in ce] in source source source Urine data data data by Test strip pH of 5.0 - 8.5 No Normal No Sep 20 Urine informati informati 2017 on in on in source source data data Protein NEG mg/dL No No Sep 20 [Mass/vol informati informati 2017 ume] in on in on in Urine by source source Automated data data test strip Erythro 10-20 0 rbc/hpf No No Sep 20 cytes informa informa 2017 [Presen tion in tion in ce] in source source Urine data data sedimen t by Light microsc opy Specific 1.005 - No Normal No Sep 20 gravity 1.030 informati informati 2017 of Urine on in on in source source data data Epithel 3-5 0 - 5 #/hpf No No Sep 20 ial informa informa 2017 cells.s tion in tion in quamous source source data data [Presen ce] in Urine sedimen t by Microsc opy high power field Urobili 0.2 NEG E.U./dL No No Sep 20 nogen informa informa 2017 [Presen tion in tion in ce] in source source Urine data data by Test strip Leukocy [50 O wbc/hpf No No Sep 20 paulo wbc/hpf informa informa 2017 [#/volu ; 100 tion in tion in me] in wbc/hpf source source Urine ] data data Urinalysis dipstick W Reflex Microscopic panel in Urine Observa Value Referen Units Interpr Notes Date tion ce etation Range Appeara CLOUDY CLEAR No No No Sep 20 nce of informa informa informa 2017 Urine tion in tion in tion in source source source data data data Bilirub NEGATIV NEG No No No Sep 20 in E informa informa informa 2017 [Presen tion in tion in tion in ce] in source source source Urine data data data by Test strip Erythro 3+ NEG No Abnorma No Sep 20 cytes informa l informa 2016 [Presen tion in tion in ce] in source source Urine data data Color DK YELLOW No No No Sep 20 of YELLOW informa informa informa 2017 Urine tion in tion in tion in source source source data data data Glucose NEG No No No Sep 20 [Mass/vol informati informati informati 2017 ume] in on in on in on in Urine by source source source Test data data data strip Ketones NEGATIV NEG mg/dL No No Sep 20 E informa informa 2017 [Presen tion in tion in ce] in source source Urine data data by Automat ed test strip Mucus 3+ NEG No Abnorma No Sep 20 [Presen informa l informa 2016 ce] in tion in tion in Urine source source sedimen data data t by Light microsc opy Nitrite NEGATIV NEG No No No Sep 20 E informa informa informa 2017 [Presen tion in tion in tion in ce] in source source source Urine data data data by Test strip pH of 5.0 - 8.5 No Normal No Sep 20 Urine informati informati 2017 on in on in source source data data Protein NEG mg/dL No No Sep 20 [Mass/vol informati informati 2017 ume] in on in on in Urine by source source Automated data data test strip Specific 1.005 - No Normal No Sep 20 gravity 1.030 informati informati 2017 of Urine on in on in source source data data Urobili 0.2 NEG E.U./dL No No Sep 20 nogen informa informa 2017 [Presen tion in tion in ce] in source source Urine data data by Test strip Choriogonadotropin.beta subunit [Units] in 24 hour Urine Observa Value Referen Units Interpr Notes Date tion ce etation Range Choriogon NEG No No No Sep 12 adotropin informati informati informati 2017 7:15 .beta on in on in on in PM subunit source source source [Units] data data data in 24 hour Urine Urinalysis dipstick W Reflex Microscopic panel in Urine Observa Value Referen Units Interpr Notes Date tion ce etation Range Appeara SL CLEAR No No No Sep 12 nce of CLOUDY informa informa informa 2017 Urine tion in tion in tion in 7:15 PM source source source data data data Bacteri 3+ O No No No Sep 12 a informa informa informa 2016 [Presen tion in tion in tion in 7:15 PM ce] in source source source Urine data data data sedimen t by Light microsc opy Bilirub NEGATIV NEG No No No Sep 12 in E informa informa informa 2017 [Presen tion in tion in tion in 7:15 PM ce] in source source source Urine data data data by Test strip Erythro 1+ NEG No Abnorma No Sep 12 cytes informa l informa 2017 [Presen tion in tion in 7:15 PM ce] in source source Urine data data Color YELLOW YELLOW No No No Sep 12 of informa informa informa 2017 Urine tion in tion in tion in 7:15 PM source source source data data data Glucose NEG No No No Sep 12 [Mass/vol informati informati informati 2017 7:15 ume] in on in on in on in PM Urine by source source source Test data data data strip Hyaline OCC NONE #/lpf No No Sep 12 casts informa informa 2017 [Presen tion in tion in 7:15 PM ce] in source source Urine data data sedimen t by Light microsc opy Ketones NEGATIV NEG mg/dL No No Sep 12 E informa informa 2017 [Presen tion in tion in 7:15 PM ce] in source source Urine data data by Automat ed test strip Mucus 3+ NEG No Abnorma No Sep 12 [Presen informa l informa 2016 ce] in tion in tion in 7:15 PM Urine source source sedimen data data t by Light microsc opy Nitrite NEGATIV NEG No No No Sep 12 E informa informa informa 2016 [Presen tion in tion in tion in 7:15 PM ce] in source source source Urine data data data by Test strip pH of 5.0 - 8.5 No Normal No Sep 12 Urine informati informati 2017 7:15 on in on in PM source source data data Protein NEG mg/dL No No Sep 12 [Mass/vol informati informati 2017 7:15 ume] in on in on in PM Urine by source source Automated data data test strip Erythro 3-5 0 rbc/hpf No No Sep 12 cytes informa informa 2017 [Presen tion in tion in 7:15 PM ce] in source source Urine data data sedimen t by Light microsc opy Specific 1.005 - No Normal No Sep 12 gravity 1.030 informati informati 2017 7:15 of Urine on in on in PM source source data data Epithel TNTC 0 - 5 #/hpf No No Sep 12 ial informa informa 2017 cells.s tion in tion in 7:15 PM quamous source source data data [Presen ce] in Urine sedimen t by Microsc opy high power field Urobili 0.2 NEG E.U./dL No No Sep 12 nogen informa informa 2017 [Presen tion in tion in 7:15 PM ce] in source source Urine data data by Test strip Leukocy [20 O wbc/hpf No No Sep 12 paulo wbc/hpf informa informa 2017 [#/volu ; 50 tion in tion in 7:15 PM me] in wbc/hpf source source Urine ] data data Urinalysis dipstick W Reflex Microscopic panel in Urine Observa Value Referen Units Interpr Notes Date tion ce etation Range Appeara SL CLEAR No No No Sep 12 nce of CLOUDY informa informa informa 2017 Urine tion in tion in tion in 7:15 PM source source source data data data Bilirub NEGATIV NEG No No No Sep 12 in E informa informa informa 2016 [Presen tion in tion in tion in 7:15 PM ce] in source source source Urine data data data by Test strip Erythro 1+ NEG No Abnorma No Sep 12 cytes informa l informa 2016 [Presen tion in tion in 7:15 PM ce] in source source Urine data data Color YELLOW YELLOW No No No Sep 12 of informa informa informa 2017 Urine tion in tion in tion in 7:15 PM source source source data data data Glucose NEG No No No Sep 12 [Mass/vol informati informati informati 2017 7:15 ume] in on in on in on in PM Urine by source source source Test data data data strip Ketones NEGATIV NEG mg/dL No No Sep 12 E informa informa 2016 [Presen tion in tion in 7:15 PM ce] in source source Urine data data by Automat ed test strip Mucus 3+ NEG No Abnorma No Sep 12 [Presen informa l informa 2016 ce] in tion in tion in 7:15 PM Urine source source sedimen data data t by Light microsc opy Nitrite NEGATIV NEG No No No Sep 12 E informa informa informa 2016 [Presen tion in tion in tion in 7:15 PM ce] in source source source Urine data data data by Test strip pH of 5.0 - 8.5 No Normal No Sep 12 Urine informati informati 2017 7:15 on in on in PM source source data data Protein NEG mg/dL No No Sep 12 [Mass/vol informati informati 2017 7:15 ume] in on in on in PM Urine by source source Automated data data test strip Specific 1.005 - No Normal No Sep 12 gravity 1.030 informati informati 2017 7:15 of Urine on in on in PM source source data data Urobili 0.2 NEG E.U./dL No No Sep 12 nogen informa informa 2017 [Presen tion in tion in 7:15 PM ce] in source source Urine data data by Test strip Comprehensive metabolic 2000 panel in Serum or Plasma Observa Value Referen Units Interpr Notes Date tion ce etation Range Albumin/G 1.1 - 1.8 No Low No Jan 26 lobulin informati informati 2017 6:45 [Mass on in on in PM ratio] in source source Serum or data data Plasma Albumin 3.4 - 5.0 gm/dL Normal No Jan 26 [Mass/vol informati 2016 6:45 ume] in on in PM Serum or source Plasma data Alkaline 46 - 116 U/L Normal No Jan 26 phosphata informati 2017 6:45 se on in PM [Enzymati source c data activity/ volume] in Serum or Plasma Bilirubin 0.2 - 1.0 mg/dL Normal No Jan 26 .total informati 2016 6:45 [Mass/vol on in PM ume] in source Serum or data Plasma Urea 7 - 18 mg/dL Normal No Jan 26 nitrogen informati 2016 6:45 [Mass/vol on in PM ume] in source Serum or data Plasma Calcium 8.5 - mg/dL Normal No Jan 26 [Mass/vol 10.1 informati 2016 6:45 ume] in on in PM Serum or source Plasma data Chloride 98 - 107 mmoL/L Normal No Jan 26 [Moles/vo informati 2016 6:45 lume] in on in PM Serum or source Plasma data Carbon 21.0 - mmoL/L Normal No Jan 26 dioxide, 32.0 informati 2017 6:45 total on in PM [Moles/vo source lume] in data Serum or Plasma Creatinin 0.55 - mg/dL Normal No Jan 26 e 1.02 informati 2016 6:45 [Mass/vol on in PM ume] in source Serum or data Plasma Creatinin 50 - 200 ML/MIN Normal No Jan 26 e renal informati 2016 6:45 clearance on in PM source predicted data by Cockcroft -Gault formula Estimated 59- ML/MIN No REFERENCE Jan 26 informati RANGE: 2017 6:45 glomerula on in >60 PM r source ML/MIN/1. filtratio data 73 SQUARE n rate METERSIf (GF this patient is -A merican, then multiply theresult by 1.210. Globulin 1.3 - 3.2 gm/dL High No Jan 26 [Mass/vol informati 2016 6:45 ume] in on in PM Serum source data Glucose 74 - 106 mg/dL Normal No Jan 26 [Mass/vol informati 2016 6:45 ume] in on in PM Serum or source Plasma data Potassium 3.5 - 5.1 mmoL/L Normal No Jan 262016 6:45 [Moles/vo on in PM lume] in source Serum or data Plasma Sodium 136 - 145 mmoL/L Normal No Jan 26 [Moles/vo ati 2016 6:45 lume] in on in PM Serum or source Plasma data Aspartate 15 - 37 U/L Normal No Jan 26 informati 2016 6:45 aminotran on in PM sferase source [Enzymati data c activity/ volume] in Serum or Plasma Alanine 12 - 78 U/L Normal No Jan 26 aminotran 2016 6:45 sferase on in PM [Enzymati source c data activity/ volume] in Serum or Plasma Protein 6.4 - 8.2 gm/dL Normal No Jan 26 [Mass/vol informati 2016 6:45 ume] in on in PM Serum or source Plasma data CBC W Auto Differential panel in Blood Observa Value Referen Units Interpr Notes Date tion ce etation Range Basophils 0 - 0.2 K/MM3 Normal No Jan 262016 6:45 [#/volume on in PM ] in source Blood by data Automated count Basophils 0.1 - 2.0 % Normal No Jan 26 informati 2016 6:45 leukocyte on in PM s in source Blood by data Automated count Eosinophi 0.0 - 0.4 K/mm3 Normal Jan 26 ls ati 2016 6:45 [#/volume on in PM ] in source Blood by data Automated count Eosinophi 0.1 - % Normal Jan 26 ls/100 12.0 informati 2016 6:45 leukocyte on in PM s in source Blood by data Automated count Granulocy 1.8 - 7.8 K/mm3 High No Jan 26 paulo informati 2016 6:45 [#/volume on in PM ] in source Blood by data Automated count Granulocy 37.0 - % Normal Jan 26 paulo/100 80.0 informati 2016 6:45 leukocyte on in PM s in source Blood by data Automated count Hematocri 37.0 - % Normal Jan 26 t [Volume 47.0 informati 2017 6:45 on in PM Fraction] source of Blood data Hemoglobi 12.2 - g/dL Normal No Jan 26 n 16.2 informati 2017 6:45 [Mass/vol on in PM ume] in source Blood data Lymphocyt 0.7 - 4.5 K/mm3 Normal No Jan 26 es informati 2017 6:45 [#/volume on in PM ] in source Unspecifi data ed specimen by Automated count Lymphocyt 10 - 50.0 % Normal No Jan 26 es informati 2017 6:45 [#/volume on in PM ] in source Unspecifi data ed specimen by Automated count Erythrocy 27 - 31.2 pg Low No Jan 26 te mean informati 2017 6:45 corpuscul on in PM ar source hemoglobi data n [Entitic mass] Erythrocy 31.8 - g/dl Normal Jan 26 te mean 35.4 informati 2017 6:45 corpuscul on in PM ar source hemoglobi data n concentra tion [Mass/vol ume] by Automated count Erythrocy 82.2 - fl Low No Jan 26 te mean 97.8 informati 2017 6:45 corpuscul on in PM ar volume source [Entitic data volume] by Automated count Monocytes 0.1 - 1.0 K/mm3 Normal No Jan 26 informati 2017 6:45 [#/volume on in PM ] in source Blood by data Automated count Monocytes 1.7 - 9.3 % Normal No Jan 26 /100 informati 2017 6:45 leukocyte on in PM s in source Blood by data Automated count Platelet 7.4 - fl Normal Jan 26 mean 10.4 informati 2017 6:45 volume on in PM [Entitic source volume] data in Blood by Automated count Platelets 142 - 424 K/mm3 High No Jan 26 informati 2017 6:45 [#/volume on in PM ] in source Blood data Erythrocy 4.2 - 5.4 M/mm3 High No Jan 26 paulo informati 2017 6:45 [#/volume on in PM ] in source Amniotic data fluid Erythrocy 11.5 - % Normal No Jan 26 te 17.5 informati 2017 6:45 distribut on in PM ion width source [Entitic data volume] by Automated count Leukocyte 4.8 - K/MM3 High No Jan 26 s 10.8 informati 2017 6:45 [#/volume on in PM ] in source Blood data Urinalysis dipstick W Reflex Microscopic panel in Urine Observa Value Referen Units Interpr Notes Date tion ce etation Range Appeara SL CLEAR No No No Jan 26 nce of CLOUDY informa informa informa 2016 Urine tion in tion in tion in 6:35 PM source source source data data data Bilirub NEGATIV NEG No No BILIRUB Jan 26 in E informa informa IN 2017 [Presen tion in tion in CONFIRM 6:35 PM ce] in source source ED WITH Urine data data by Test ICTOTES strip T Erythro TRACE-I NEG No No No Jan 26 cytes NTACT informa informa informa 2016 [Presen tion in tion in tion in 6:35 PM ce] in source source source Urine data data data Color YELLOW YELLOW No No No Jan 26 of informa informa informa 2016 Urine tion in tion in tion in 6:35 PM source source source data data data Glucose NEG No No No Jan 26 [Mass/vol informati informati informati 2016 6:35 ume] in on in on in on in PM Urine by source source source Test data data data strip Ketones NEGATIV NEG mg/dL No No Jan 26 E informa informa 2016 [Presen tion in tion in 6:35 PM ce] in source source Urine data data by Automat ed test strip Mucus 1+ NEG No Abnorma No Jan 26 [Presen informa l informa 2016 ce] in tion in tion in 6:35 PM Urine source source sedimen data data t by Light microsc opy Nitrite NEGATIV NEG No No No Jan 26 E informa informa informa 2016 [Presen tion in tion in tion in 6:35 PM ce] in source source source Urine data data data by Test strip pH of 5.0 - 8.5 No Normal No Jan 26 Urine informati informati 2017 6:35 on in on in PM source source data data Protein NEG mg/dL High No Jan 26 [Mass/vol informati 2017 6:35 ume] in on in PM Urine by source Automated data test strip Erythro OCC 0 rbc/hpf No No Jan 26 cytes informa informa 2016 [Presen tion in tion in 6:35 PM ce] in source source Urine data data sedimen t by Light microsc opy Specific 1.005 - No Normal No Jan 26 gravity 1.030 informati informati 2017 6:35 of Urine on in on in PM source source data data Epithel 50-100 0 - 5 #/hpf No No Jan 26 ial informa informa 2017 cells.s tion in tion in 6:35 PM quamous source source data data [Presen ce] in Urine sedimen t by Microsc opy high power field Urobili 0.2 NEG E.U./dL No No Jan 26 nogen informa informa 2016 [Presen tion in tion in 6:35 PM ce] in source source Urine data data by Test strip Leukocy [5 O wbc/hpf No No Jan 26 paulo wbc/hpf informa informa 2016 [#/volu ; 10 tion in tion in 6:35 PM me] in wbc/hpf source source Urine ] data data Urinalysis dipstick W Reflex Microscopic panel in Urine Observa Value Referen Units Interpr Notes Date tion ce etation Range Appeara SL CLEAR No No No Jan 26 nce of CLOUDY informa informa informa 2016 Urine tion in tion in tion in 6:35 PM source source source data data data Bilirub NEGATIV NEG No No BILIRUB Jan 26 in E informa informa IN 2016 [Presen tion in tion in CONFIRM 6:35 PM ce] in source source ED WITH Urine data data by Test ICTOTES strip T Erythro TRACE-I NEG No No No Jan 26 cytes NTACT informa informa informa 2016 [Presen tion in tion in tion in 6:35 PM ce] in source source source Urine data data data Color YELLOW YELLOW No No No Jan 26 of informa informa informa 2017 Urine tion in tion in tion in 6:35 PM source source source data data data Glucose NEG No No No Jan 26 [Mass/vol informati informati informati 2017 6:35 ume] in on in on in on in PM Urine by source source source Test data data data strip Ketones NEGATIV NEG mg/dL No No Jan 26 E informa informa 2016 [Presen tion in tion in 6:35 PM ce] in source source Urine data data by Automat ed test strip Mucus 1+ NEG No Abnorma No Jan 26 [Presen informa l informa 2016 ce] in tion in tion in 6:35 PM Urine source source sedimen data data t by Light microsc opy Nitrite NEGATIV NEG No No No Jan 26 E informa informa informa 2016 [Presen tion in tion in tion in 6:35 PM ce] in source source source Urine data data data by Test strip pH of 5.0 - 8.5 No Normal No Jan 26 Urine informati informati 2016 6:35 on in on in PM source source data data Protein NEG mg/dL High No Jan 26 [Mass/vol informati 2016 6:35 ume] in on in PM Urine by source Automated data test strip Specific 1.005 - No Normal No Jan 26 gravity 1.030 informati informati 2016 6:35 of Urine on in on in PM source source data data Urobili 0.2 NEG E.U./dL No No Jan 26 nogen informa inform2016 [Presen tion in tion in 6:35 PM ce] in source source Urine data data by Test strip Choriogonadotropin.beta subunit [Units] in 24 hour Urine Observa Value Referen Units Interpr Notes Date tion ce etation Range Choriogon NEG No No No Jan 26 adotropin informati informati informati 2016 6:35 .beta on in on in on in PM subunit source source source [Units] data data data in 24 hour Urine Choriogonadotropin.beta subunit [Units] in 24 hour Urine Observa Value Referen Units Interpr Notes Date tion ce etation Range Choriogon NEG No No No Dec 22 adotropin informati informati informati 2016 .beta on in on in on in 11:25 PM subunit source source source [Units] data data data in 24 hour Urine CBC W Auto Differential panel in Blood Observa Value Referen Units Interpr Notes Date tion ce etation Range Basophils 0 - 0.2 K/MM3 Normal No November 01 informati 2016 5:05 [#/volume on in PM ] in source Blood by data Automated count Basophils 0.1 - 2.0 % Normal No November 01 /100 informati 2016 5:05 leukocyte on in PM s in source Blood by data Automated count Eosinophi 0.0 - 0.4 K/mm3 Normal No November 01 ls informati 2016 5:05 [#/volume on in PM ] in source Blood by data Automated count Eosinophi 0.1 - % Normal No November 01 ls/100 12.0 informati 2016 5:05 leukocyte on in PM s in source Blood by data Automated count Granulocy 1.8 - 7.8 K/mm3 High No November 01 paulo informati 2016 5:05 [#/volume on in PM ] in source Blood by data Automated count Granulocy 37.0 - % Normal No November 01 paulo/100 80.0 informati 2016 5:05 leukocyte on in PM s in source Blood by data Automated count Hematocri 37.0 - % Normal No November 01 t [Volume 47.0 informati 2016 5:05 on in PM Fraction] source of Blood data Hemoglobi 12.2 - g/dL No November 01 n 16.2 informati informati 2016 5:05 [Mass/vol on in on in PM ume] in source source Blood data data Lymphocyt 0.7 - 4.5 K/mm3 Normal No November 01 es informati 2016 5:05 [#/volume on in PM ] in source Unspecifi data ed specimen by Automated count Lymphocyt 10 - 50.0 % Normal No November 01 es informati 2016 5:05 [#/volume on in PM ] in source Unspecifi data ed specimen by Automated count Erythrocy 27 - 31.2 pg Low No November 01 te mean informati 2016 5:05 corpuscul on in PM ar source hemoglobi data n [Entitic mass] Erythrocy 31.8 - g/dl Normal November 01 te mean 35.4 informati 2016 5:05 corpuscul on in PM ar source hemoglobi data n concentra tion [Mass/vol ume] by Automated count Erythrocy 82.2 - fl Low November 01 te mean 97.8 informati 2016 5:05 corpuscul on in PM ar volume source [Entitic data volume] by Automated count Monocytes 0.1 - 1.0 K/mm3 Normal No November 01 informati 2016 5:05 [#/volume on in PM ] in source Blood by data Automated count Monocytes 1.7 - 9.3 % Normal No November 01 / informati 2016 5:05 leukocyte on in PM s in source Blood by data Automated count Platelet 7.4 - fl Low November 01 mean 10.4 informati 2016 5:05 volume on in PM [Entitic source volume] data in Blood by Automated count Platelets 142 - 424 K/mm3 High No November 01 informati 2016 5:05 [#/volume on in PM ] in source Blood data Erythrocy 4.2 - 5.4 M/mm3 High No November 01 paulo informati 2016 5:05 [#/volume on in PM ] in source Amniotic data fluid Erythrocy 11.5 - % Normal November 01 te 17.5 informati 2016 5:05 distribut on in PM ion width source [Entitic data volume] by Automated count Leukocyte 4.8 - K/MM3 High No November 01 s 10.8 informati 2016 5:05 [#/volume on in PM ] in source Blood data Comprehensive metabolic 2000 panel in Serum or Plasma Observa Value Referen Units Interpr Notes Date tion ce etation Range Albumin/G 1.1 - 1.8 No Low No November 01 lobulin informati informati 2016 5:05 [Mass on in on in PM ratio] in source source Serum or data data Plasma Albumin 3.4 - 5.0 gm/dL Low No November 01 [Mass/vol informati 2016 5:05 ume] in on in PM Serum or source Plasma data Alkaline 46 - 116 U/L Normal No November 01 phosphata informati 2016 5:05 se on in PM [Enzymati source c data activity/ volume] in Serum or Plasma Bilirubin 0.2 - 1.0 mg/dL Normal No November 01 .total informati 2016 5:05 [Mass/vol on in PM ume] in source Serum or data Plasma Urea 7 - 18 mg/dL Normal November 01 nitrogen informati 2016 5:05 [Mass/vol on in PM ume] in source Serum or data Plasma Calcium 8.5 - mg/dL Normal No November 01 [Mass/vol 10.1 informati 2016 5:05 ume] in on in PM Serum or source Plasma data Chloride 98 - 107 mmoL/L Normal No November 01 [Moles/vo informati 2016 5:05 lume] in on in PM Serum or source Plasma data Carbon 21.0 - mmoL/L Normal No November 01 dioxide, 32.0 informati 2016 5:05 total on in PM [Moles/vo source lume] in data Serum or Plasma Creatinin 0.55 - mg/dL Normal No November 01 e 1.02 informati 2016 5:05 [Mass/vol on in PM ume] in source Serum or data Plasma Creatinin 50 - 200 ML/MIN Normal No November 01 e renal informati 2016 5:05 clearance on in PM source predicted data by Cockcroft -Gault formula Estimated 59- ML/MIN No REFERENCE November 01 informati RANGE: 2017 5:05 glomerula on in >60 PM r source ML/MIN/1. filtratio data 73 SQUARE n rate METERSIf (GF this patient is -A merican, then multiply theresult by 1.210. Globulin 1.3 - 3.2 gm/dL High No November 01 [Mass/vol informati 2016 5:05 ume] in on in PM Serum source data Glucose 74 - 106 mg/dL Normal No November 01 [Mass/vol informati 2016 5:05 ume] in on in PM Serum or source Plasma data Potassium 3.5 - 5.1 mmoL/L Normal No November 012016 5:05 [Moles/vo on in PM lume] in source Serum or data Plasma Sodium 136 - 145 mmoL/L Normal No November 01 [Moles/vo informati 2016 5:05 lume] in on in PM Serum or source Plasma data Aspartate 15 - 37 U/L Low No November 01 inform2016 5:05 aminotran on in PM sferase source [Enzymati data c activity/ volume] in Serum or Plasma Alanine 12 - 78 U/L Normal No November 01 aminotran informati 2016 5:05 sferase on in PM [Enzymati source c data activity/ volume] in Serum or Plasma Protein 6.4 - 8.2 gm/dL Normal No November 01 [Mass/vol informati 2016 5:05 ume] in on in PM Serum or source Plasma data Choriogonadotropin.beta subunit [Units] in 24 hour Urine Observa Value Referen Units Interpr Notes Date tion ce etation Range Choriogon NEG No No No November 01 adotropin informati informati informati 2016 3:55 .beta on in on in on in PM subunit source source source [Units] data data data in 24 hour Urine Urinalysis dipstick W Reflex Microscopic panel in Urine Observa Value Referen Units Interpr Notes Date tion ce etation Range Appeara SL CLEAR No No No November 01 nce of CLOUDY informa informa informa 2017 Urine tion in tion in tion in 3:55 PM source source source data data data Bacteri 2+ O No No No November 01 a informa informa informa 2016 [Presen tion in tion in tion in 3:55 PM ce] in source source source Urine data data data sedimen t by Light microsc opy Bilirub NEGATIV NEG No No No November 01 in E informa informa informa 2016 [Presen tion in tion in tion in 3:55 PM ce] in source source source Urine data data data by Test strip Erythro NEGATIV NEG No No No November 01 cytes E informa informa informa 2016 [Presen tion in tion in tion in 3:55 PM ce] in source source source Urine data data data Color YELLOW YELLOW No No No November 01 of informa informa informa 2016 Urine tion in tion in tion in 3:55 PM source source source data data data Glucose NEG No No No November 01 [Mass/vol informati informati informati 2016 3:55 ume] in on in on in on in PM Urine by source source source Test data data data strip Ketones NEGATIV NEG mg/dL No No November 01 E informa informa 2016 [Presen tion in tion in 3:55 PM ce] in source source Urine data data by Automat ed test strip Mucus TRACE NEG No Abnorma No November 01 [Presen informa l informa 2016 ce] in tion in tion in 3:55 PM Urine source source sedimen data data t by Light microsc opy Mucus OCC OCC No No No November 01 [Presen informa informa informa 2016 ce] in tion in tion in tion in 3:55 PM Urine source source source sedimen data data data t by Light microsc opy Nitrite NEGATIV NEG No No No November 01 E informa informa informa 2016 [Presen tion in tion in tion in 3:55 PM ce] in source source source Urine data data data by Test strip pH of 5.0 - 8.5 No Normal No November 01 Urine informati informati 2017 3:55 on in on in PM source source data data Protein NEG mg/dL No No November 01 [Mass/vol informati informati 2016 3:55 ume] in on in on in PM Urine by source source Automated data data test strip Specific 1.005 - No Normal No November 01 gravity 1.030 informati informati 2016 3:55 of Urine on in on in PM source source data data Epithel 10-20 0 - 5 #/hpf No No November 01 ial informa informa 2016 cells.s tion in tion in 3:55 PM quamous source source data data [Presen ce] in Urine sedimen t by Microsc opy high power field Urobili 0.2 NEG E.U./dL No No November 01 nogen informa informa 2016 [Presen tion in tion in 3:55 PM ce] in source source Urine data data by Test strip Leukocy [5 O wbc/hpf No No November 01 paulo wbc/hpf informa informa 2016 [#/volu ; 10 tion in tion in 3:55 PM me] in wbc/hpf source source Urine ] data data Urinalysis dipstick W Reflex Microscopic panel in Urine Observa Value Referen Units Interpr Notes Date tion ce etation Range Appeara SL CLEAR No No No November 01 nce of CLOUDY informa informa informa 2016 Urine tion in tion in tion in 3:55 PM source source source data data data Bilirub NEGATIV NEG No No No November 01 in E informa informa informa 2016 [Presen tion in tion in tion in 3:55 PM ce] in source source source Urine data data data by Test strip Erythro NEGATIV NEG No No No November 01 cytes E informa informa informa 2016 [Presen tion in tion in tion in 3:55 PM ce] in source source source Urine data data data Color YELLOW YELLOW No No No November 01 of informa informa informa 2017 Urine tion in tion in tion in 3:55 PM source source source data data data Glucose NEG No No No November 01 [Mass/vol informati informati informati 2017 3:55 ume] in on in on in on in PM Urine by source source source Test data data data strip Ketones NEGATIV NEG mg/dL No No November 01 E informa informa 2016 [Presen tion in tion in 3:55 PM ce] in source source Urine data data by Automat ed test strip Mucus TRACE NEG No Abnorma No November 01 [Presen informa l informa 2016 ce] in tion in tion in 3:55 PM Urine source source sedimen data data t by Light microsc opy Nitrite NEGATIV NEG No No No November 01 E informa informa informa 2016 [Presen tion in tion in tion in 3:55 PM ce] in source source source Urine data data data by Test strip pH of 5.0 - 8.5 No Normal No November 01 Urine informati informati 2016 3:55 on in on in PM source source data data Protein NEG mg/dL No No November 01 [Mass/vol informati informati 2016 3:55 ume] in on in on in PM Urine by source source Automated data data test strip Specific 1.005 - No Normal No November 01 gravity 1.030 informati informati 2016 3:55 of Urine on in on in PM source source data data Urobili 0.2 NEG E.U./dL No No November 01 nogen informa informa 2016 [Presen tion in tion in 3:55 PM ce] in source source Urine data data by Test strip CBC W Auto Differential panel in Blood Observa Value Referen Units Interpr Notes Date tion ce etation Range Basophils 0 - 0.2 K/MM3 Normal No October 232016 6:14 [#/volume on in AM ] in source Blood by data Automated count Basophils 0.1 - 2.0 % Normal No October 23 informati 2016 6:14 leukocyte on in AM s in source Blood by data Automated count Eosinophi 0.0 - 0.4 K/mm3 Normal No October 23 ls ati 2016 6:14 [#/volume on in AM ] in source Blood by data Automated count Eosinophi 0.1 - % Normal No October 23 ls/100 12.0 informati 2016 6:14 leukocyte on in AM s in source Blood by data Automated count Granulocy 1.8 - 7.8 K/mm3 High No October 23 paulo informati 2016 6:14 [#/volume on in AM ] in source Blood by data Automated count Granulocy 37.0 - % Normal No October 23 paulo/100 80.0 informati 2016 6:14 leukocyte on in AM s in source Blood by data Automated count Hematocri 37.0 - % Low No October 23 t [Volume 47.0 informati 2016 6:14 on in AM Fraction] source of Blood data Hemoglobi 12.2 - g/dL Low No October 23 n 16.2 informati 2017 6:14 [Mass/vol on in AM ume] in source Blood data Lymphocyt 0.7 - 4.5 K/mm3 Normal No October 23 es informati 2016 6:14 [#/volume on in AM ] in source Unspecifi data ed specimen by Automated count Lymphocyt 10 - 50.0 % Normal No October 23 es informati 2016 6:14 [#/volume on in AM ] in source Unspecifi data ed specimen by Automated count Erythrocy 27 - 31.2 pg Low No October 23 te mean informati 2017 6:14 corpuscul on in AM ar source hemoglobi data n [Entitic mass] Erythrocy 31.8 - g/dl Low No October 23 te mean 35.4 informati 2016 6:14 corpuscul on in AM ar source hemoglobi data n concentra tion [Mass/vol ume] by Automated count Erythrocy 82.2 - fl Low No October 23 te mean 97.8 informati 2016 6:14 corpuscul on in AM ar volume source [Entitic data volume] by Automated count Monocytes 0.1 - 1.0 K/mm3 Normal No October 23 informati 2016 6:14 [#/volume on in AM ] in source Blood by data Automated count Monocytes 1.7 - 9.3 % Normal No October 23 / informati 2017 6:14 leukocyte on in AM s in source Blood by data Automated count Platelet 7.4 - fl Low No October 23 mean 10.4 informati 2016 6:14 volume on in AM [Entitic source volume] data in Blood by Automated count Platelets 142 - 424 K/mm3 Normal No October 23 informati 2016 6:14 [#/volume on in AM ] in source Blood data Erythrocy 4.2 - 5.4 M/mm3 Normal No October 23 paulo informati 2017 6:14 [#/volume on in AM ] in source Amniotic data fluid Erythrocy 11.5 - % Normal No October 23 te 17.5 informati 2016 6:14 distribut on in AM ion width source [Entitic data volume] by Automated count Leukocyte 4.8 - K/MM3 High No October 23 s 10.8 informati 2016 6:14 [#/volume on in AM ] in source Blood data Basic metabolic panel in Blood Observa Value Referen Units Interpr Notes Date tion ce etation Range Urea 7 - 18 mg/dL Normal No October 22 nitrogen informati 2016 6:08 [Mass/vol on in AM ume] in source Serum or data Plasma Calcium 8.5 - mg/dL Normal No October 22 [Mass/vol 10.1 informati 2016 6:08 ume] in on in AM Serum or source Plasma data Chloride 98 - 107 mmoL/L Normal No October 22 [Moles/vo informati 2016 6:08 lume] in on in AM Serum or source Plasma data Carbon 21.0 - mmoL/L Normal No October 22 dioxide, 32.0 informati 2016 6:08 total on in AM [Moles/vo source lume] in data Serum or Plasma Creatinin 0.55 - mg/dL Normal No October 22 e 1.02 informati 2016 6:08 [Mass/vol on in AM ume] in source Serum or data Plasma Creatinin 50 - 200 ML/MIN Normal No October 22 e renal informati 2016 6:08 clearance on in AM source predicted data by Cockcroft -Gault formula Estimated 59- ML/MIN No REFERENCE October 22 informati RANGE: 2017 6:08 glomerula on in >60 AM r source ML/MIN/1. filtratio data 73 SQUARE n rate METERSIf (GF this patient is -A merican, then multiply theresult by 1.210. Glucose 74 - 106 mg/dL High No October 22 [Mass/vol informati 2016 6:08 ume] in on in AM Serum or source Plasma data Potassium 3.5 - 5.1 mmoL/L Low No October 22 inform2016 6:08 [Moles/vo on in AM lume] in source Serum or data Plasma Sodium 136 - 145 mmoL/L Normal No October 22 [Moles/vo informati 2016 6:08 lume] in on in AM Serum or source Plasma data CBC W Auto Differential panel in Blood Observa Value Referen Units Interpr Notes Date tion ce etation Range Basophils 0 - 0.2 K/MM3 Normal No October 22 informati 2016 6:08 [#/volume on in AM ] in source Blood by data Automated count Basophils 0.1 - 2.0 % Normal No October 22 /100 informati 2016 6:08 leukocyte on in AM s in source Blood by data Automated count Eosinophi 0.0 - 0.4 K/mm3 Normal No October 22 ls informati 2017 6:08 [#/volume on in AM ] in source Blood by data Automated count Eosinophi 0.1 - % Normal No October 22 ls/100 12.0 informati 2017 6:08 leukocyte on in AM s in source Blood by data Automated count Granulocy 1.8 - 7.8 K/mm3 High No October 15 paulo informati 2017 6:08 [#/volume on in AM ] in source Blood by data Automated count Granulocy 37.0 - % Normal No October 22 paulo/100 80.0 informati 2016 6:08 leukocyte on in AM s in source Blood by data Automated count Hematocri 37.0 - % Normal No October 22 t [Volume 47.0 informati 2016 6:08 on in AM Fraction] source of Blood data Hemoglobi 12.2 - g/dL Low No October 22 n 16.2 informati 2016 6:08 [Mass/vol on in AM ume] in source Blood data Lymphocyt 0.7 - 4.5 K/mm3 Normal No October 22 es informati 2016 6:08 [#/volume on in AM ] in source Unspecifi data ed specimen by Automated count Lymphocyt 10 - 50.0 % Normal No October 22 es informati 2017 6:08 [#/volume on in AM ] in source Unspecifi data ed specimen by Automated count Erythrocy 27 - 31.2 pg Low No October 22 te mean informati 2016 6:08 corpuscul on in AM ar source hemoglobi data n [Entitic mass] Erythrocy 31.8 - g/dl Low No October 22 te mean 35.4 informati 2016 6:08 corpuscul on in AM ar source hemoglobi data n concentra tion [Mass/vol ume] by Automated count Erythrocy 82.2 - fl Low No October 22 te mean 97.8 informati 2017 6:08 corpuscul on in AM ar volume source [Entitic data volume] by Automated count Monocytes 0.1 - 1.0 K/mm3 Normal No October 22 informati 2016 6:08 [#/volume on in AM ] in source Blood by data Automated count Monocytes 1.7 - 9.3 % Normal No October 22 /100 informati 2017 6:08 leukocyte on in AM s in source Blood by data Automated count Platelet 7.4 - fl Low No October 22 mean 10.4 informati 2016 6:08 volume on in AM [Entitic source volume] data in Blood by Automated count Platelets 142 - 424 K/mm3 Normal No October 22 informati 2017 6:08 [#/volume on in AM ] in source Blood data Erythrocy 4.2 - 5.4 M/mm3 Normal No October 22 paulo informati 2017 6:08 [#/volume on in AM ] in source Amniotic data fluid Erythrocy 11.5 - % Normal October 22 te 17.5 informati 2017 6:08 distribut on in AM ion width source [Entitic data volume] by Automated count Leukocyte 4.8 - K/MM3 High No October 22 s 10.8 informati 2017 6:08 [#/volume on in AM ] in source Blood data
== END 2017-03-21 02:29 | disposition home or self-care (01) ==
LOC: ER 00:11
PROVIDERS: Emergency Medicine
DX: N30.00 Acute cystitis without hematuria (principal); N23 Unspecified renal colic; J45.909 Unspecified asthma, uncomplicated; I10 Essential (primary) hypertension; E78.5 Hyperlipidemia, unspecified; Z88.2 Allergy status to sulfonamides; Z88.1 Allergy status to other antibiotic agents; Z88.8 Allergy status to other drugs, medicaments and biological substances

== ENCOUNTER 2017-03-25 12:59 | Emergency (ER) | payer MEDICAID ==
[~2017-03-25] VITALS: Ht 154.9 cm; Wt 107.5 kg
--- OUTSIDE RECORDS SUMMARY | 2017-03-25 13:33 | External Medical Summary Rpt | CCD ---
Author Author , ROBERTO Organization ROBERTO Address Unknown Phone [email or web address] Care Team Providers Care Spa Host Name Role Phone A Kaelyn HERRERA MD PSC, Lynn Unavailable Unavailable Kaelyn HERRERA MD PSC LELE MIRANDA Unavailable Unavailable KAEL SOSA MAY, SHEILA MAY Unavailable Unavailable BEINEKE, BEINEKE Unavailable Unavailable BEINEKE MARCIA, BEINEKE Unavailable Unavailable MARCIA FAUSTINO JAM, FAUSTINO JAM Unavailable Unavailable CONNORS, CONNORS Unavailable Unavailable CONNORS ALL, CONNORS ALL Unavailable Unavailable ILANA MON, Unavailable Unavailable ILANA MON [facility] Unavailable Unavailable SERVICE, [facility] HARRINGTON, HARRINGTON Unavailable Unavailable HARRINGTON JAM, HARRINGTON JAM Unavailable Unavailable FU CAR, FU Unavailable Unavailable CAR VASQUEZ ALPESH, Unavailable Unavailable VASQUEZ ALPESH CELLAROSI - YORBA Unavailable Unavailable PAT, CELLAROSI - YORBA PAT CHESTNUT, CHESTNUT Unavailable Unavailable [facility], Unavailable Unavailable [facility] KAYLA, KAYLA Unavailable Unavailable KAYLA WOLFGANG, Unavailable Unavailable KAYLA WOLFGANG TAM MAT, TAM Unavailable Unavailable MAT FAUGHN BUTTS, FAUGHN Unavailable Unavailable BUTTS SANCHEZ JERILYN, SANCHEZ Unavailable Unavailable JERILYN JR JERMAINE, JERMAINE, Unavailable Unavailable JR DEAN, ELZ, Unavailable Unavailable JERMAINE, ELZ HERLINDA, HERLINDA Unavailable Unavailable HERLINDA LYNDA, HERLINDA Unavailable Unavailable LYNDA RICK, RICK Unavailable Unavailable RICK ARTI, RICK Unavailable Unavailable ARIT GEILE, GEILE Unavailable Unavailable [facility], [facility] YULI RHO, YULI Unavailable Unavailable RHO GUNDUMALLA GOP, Unavailable Unavailable GUNDUMALLA GOP DIANNA SCO, Unavailable Unavailable [facility] Unavailable Unavailable INC, [facility] Unavailable Unavailable HOSPITAL P, [facility] P FELTON KOKI, FELTON KOKI Unavailable Unavailable [facility] KISHA, Unavailable Unavailable [facility] Unavailable Unavailable [facility], [facility] KILPELA, KILPELA Unavailable Unavailable KILPELA JEA, KILPELA Unavailable Unavailable JEA KOSTELIC ROBERT, Unavailable Unavailable KOSTELIC [facility] [...] SOTINGEANU SOTINGEANU MARCIA, Unavailable Unavailable SOTINGEANU MARCIA [facility] Unavailable Unavailable EMERGENCY PHYS, [facility]GENCY PHYS [facility] Unavailable Unavailable EMERGENCY SERV, [facility] EMERGENCY SERV [facility] Unavailable Unavailable PHYSICIAN SERVI, [facility] PHYSICIAN SERVI [facility]OLU MOTLEY Unavailable Unavailable [facility], Unavailable Unavailable [facility] FOR, WALKER Unavailable Unavailable FOR WELLS, WELLS Unavailable Unavailable [facility], [facility] Unavailable Unavailable ROSAURA BRANDY, ROSAURA Unavailable Unavailable BRANDY FIDENCIO, FIDENCIO Unavailable Unavailable Purpose Continuity of Care Document - 10-01-2014 through 2016 Problems Code Diagnosis DOS Provider Status F17.220 NICOTINE 03-22-2017 DEPENDENCE, CHEWING TOBACCO, UNCOMPLICAT ED F32.9 MAJOR 03-22-2017 DEPRESSIVE DISORDER, SINGLE EPISODE, UNSPECIFIED F41.9 ANXIETY 03-22-2017 DISORDER, UNSPECIFIED F43.10 POST-TRAUMA 03-22-2017 TIC STRESS DISORDER, UNSPECIFIED N39.0 URINARY 03-22-2017 TRACT INFECTION, SITE NOT SPECIFIED R10.9 UNSPECIFIED 03-22-2017 ABDOMINAL PAIN Z79.899 OTHER LONG 03-22-2017 TERM (CURRENT) DRUG THERAPY Z87.442 PERSONAL 03-22-2017 HISTORY OF URINARY CALCULI Z88.1 ALLERGY 03-22-2017 STATUS TO OTHER ANTIBIOTIC AGENTS STATUS Z88.8 ALLERGY 03-22-2017 STATUS TO OTHER DRUGS, MEDICAMENTS AND BIOLOGICAL SUBSTANCES STATUS N12 TUBULO-INTE 02-26-2017 A Kaelyn COKER MD PSC NEPHRITIS NOT SPEC ACUTE/CHRON R109 UNSPECIFIED 02-26-2017 A Kaelyn HERRERA ABDOMINAL PSC PAIN N3001 ACUTE 02-20-2017 A Kaelyn HERRERA CYSTITIS PSC WITH HEMATURIA R300 DYSURIA 02-20-2017 A Kaelyn HERRERA MD PSC N3000 ACUTE 02-19-2017 [facility] CYSTITIS [facility]ANS, WITHOUT PLLC HEMATURIA N390 URINARY 02-19-2017 [facility] TRACT PHYSICIANS, INFECTION PLLC SITE NOT SPECIFIED N200 CALCULUS OF 01-26-2017 [facility] [facility] N3090 CYSTITIS 01-26-2017 [facility] UNSPECIFIED PHYSICIANS, WITHOUT PLLC HEMATURIA M5442 LUMBAGO 01-08-2017 [facility] WITH HOME [facility]AT[facility] MEDICAL LEFT SIDE EQUIPME [id number] STRAIN 01-08-2017 [facility] MUSCLE HOME FASCIA & MEDICAL TENDON LOW EQUIPME BACK INITIAL I10 ESSENTIAL 12-22-2016 [facility] HYPERTENSIO INC N M545 LOW BACK 12-22-2016 [place] [facility] Z720 TOBACCO USE 12-22-2016 [facility] INC N1330 UNSPECIFIED 11-01-2016 [facility] HYDRONEPHRO INC SIS N23 UNSPECIFIED 11-01-2016 [facility] RENAL PHYSICIANS, COLIC PLLC R112 NAUSEA WITH 10-26-2016 [facility] ROSY UNSPECIFIED HOLDINGS K921 MELENA 10-25-2016 A Kaelyn HERRERA MD PSC [id number] UNSPECIFIED 10-25-2016 Lynn HERRERA OVARIAN PSC CYST UNSPECIFIED SIDE N83.209 UNSPECIFIED 10-23-2016 OVARIAN CYST, UNSPECIFIED SIDE R10.31 RIGHT LOWER 10-23-2016 [facility] PAIN R11.0 NAUSEA 10-23-2016 R19.7 DIARRHEA, 10-23-2016 UNSPECIFIED Z87.440 PERSONAL 10-23-2016 HISTORY OF URINARY (TRACT) INFECTIONS Z88.0 ALLERGY 10-23-2016 STATUS TO PENICILLIN Z88.2 ALLERGY 10-23-2016 STATUS TO SULFONAMIDE S STATUS Z88.5 ALLERGY 10-23-2016 STATUS TO NARCOTIC AGENT STATUS K54386 UNSPECIFIED 10-22-2016 A Kaelyn HERRERA OVARIAN PSC CYST RIGHT SIDE R1031 RIGHT LOWER 10-22-2016 A Kaelyn HERRERA [facility] PAIN E785 HYPERLIPIDE 10-21-2016 [facility] UNSPECIFIED INC I44500 PERSONAL 10-21-2016 [facility] OF [facility] URINARY INC TRACT INFECTIONS I44868 PERSONAL 10-21-2016 [facility] URINARY INC CALCULI L50.9 URTICARIA, 09-18-2016 UNSPECIFIED N30.00 ACUTE 09-18-2016 CYSTITIS WITHOUT HEMATURIA R10.32 LEFT LOWER 09-18-2016 [facility] PAIN Z72.0 TOBACCO USE 09-18-2016 [id number] ELEVATED 09-18-2016 A Kaelyn HERRERA WHITE BLOOD PSC CELL COUNT UNSPECIFIED R197 DIARRHEA 09-18-2016 A Kealyn MURPHYIFIED PSC R32 UNSPECIFIED 09-18-2016 A Kaelyn HERRERA URINARY PSC INCONTINENC E R5383 OTHER 09-18-2016 A Kaelyn HERRERA FATIGUE PSC R1012 LEFT UPPER 09-12-2016 [facility] PAIN INC L509 URTICARIA 09-09-2016 [facility] UNSPECIFIED N EMERGENCY PHYS R110 NAUSEA 09-08-2016 [facility] INC R21 RASH AND 09-08-2016 [facility] OTHER PHYSICIANS, NONSPECIFIC PLLC SKIN ERUPTION Z791 CORRECTION 09-08-2016 [facility] CURR [facility] NON-STEROID INC AL&ANTI-INF LAMMATORIES D61284 OTHER LONG 09-08-2016 [facility] TERM [facility] CURRENT INC DRUG THERAPY Z888 ALLERGY 09-08-2016 [facility] STATUS OTH [facility] RX MEDS & INC BIOLOG SUBSTANC STS M54.9 DORSALGIA, 08-20-2016 UNSPECIFIED R31.9 HEMATURIA, 08-20-2016 UNSPECIFIED R1032 LEFT LOWER 08-10-2016 [place] [facility] B86 SCABIES 07-04-2016 [facility] PH[facility]ICIANS, PLLC R030 ELEVATED 06-03-2016 [facility] BLOOD-PRESS N EMERGENCY URE READING SERV WITHOUT DX HTN R0600 DYSPNEA 06-03-2016 [facility] [place] UNSPECIFIED RADIOLOGY R079 CHEST PAIN 06-03-2016 [facility] [place] UNSPECIFIED RADIOLOGY R1013 EPIGASTRIC 06-03-2016 [facility] PAIN N EMERGENCY SERV J40 BRONCHITIS 03-12-2016 A Kaelyn HECK MD PSC SPECIFIED ACUTE OR CHRONIC R05 COUGH 03-12-2016 A Kaelyn HERRERA MD PSC E860 DEHYDRATION 02-22-2016 [facility]IANS, PLLC R1011 RIGHT UPPER 02-22-2016 [facility], PAIN PLLC R1010 UPPER 02-21-2016 A Kaelyn HERRERA ABDOMINAL PSC PAIN UNSPECIFIED R1110 VOMITING 02-21-2016 A Kaelyn HERRERA UNSPECIFIED PSC A71576 OTHER 02-14-2016 A Kaelyn HERRERA INSTABILITY PSC LEFT ANKLE B94696 PAIN IN 02-14-2016 A Kaelyn HERRERA LEFT KNEE MD PSC V27713 PAIN IN 02-09-2016 A Kaelyn HERRERA RIGHT LEG PSC K11102 PAIN IN 02-09-2016 A Kaelyn HERRERA LEFT LEG PSC Y93863 EFFUSION 02-07-2016 [place] [facility] J00762 PAIN IN 02-07-2016 [place] LEFT [facility] M7989 OTHER 02-07-2016 [place] SPECIFIED MEDICAL SOFT TISSUE IMAGING ASS DISORDERS G8929 OTHER 01-26-2016 A Kaelyn HERRERA CHRONIC [facility] PAIN N289 DISORDER OF 01-09-2016 [facility] UNSPECIFIED R000 TACHYCARDIA 01-09-2016 [facility] UNSPECIFIED FOUNDATION N209 URINARY 12-31-2015 [facility] CALCULUS PHYSICIANS, UNSPECIFIED PLLC K86225 PAIN IN 11-10-2015 [place] RIGHT [facility] M01002F SPRAIN 11-10-2015 [facility] UNSPEC PHYSICIANS, [facility] RIGHT ANKLE INITIAL ENC N60379D UNSPECIFIED 11-10-2015 [place] INJURY MEDICAL RIGHT ANKLE IMAGING ASS INITIAL ENCOUNTER R319 HEMATURIA 10-07-2015 [facility] UNSPECIFIED PHYSICIANS, PLLC N8320 UNSPECIFIED 08-05-2015 [facility] OVARIAN N EMERGENCY CYSTS PHYS N8329 OTHER 08-05-2015 [facility] [place] [facility] CYSTS R1030 LOWER 08-04-2015 [facility] ABDOMINAL PHYSICIANS, PAIN PLLC UNSPECIFIED M549 DORSALGIA 06-26-2015 [facility] UNSPECIFIED PHYSICIANS, PLLC Z960 PRESENCE OF 06-16-2015 [facility] N201 CALCULUS OF 05-20-2015 [facility] URETER PHYSICIANS, PLLC E669 OBESITY 05-17-2015 [facility] UNSPECIFIED N PHYSICIAN SERVI N132 HYDRONEPHRO 05-17-2015 [facility] SIS W/RENAL N PHYSICIAN & URETRL SERVI CALCULOUS OBST R6510 SYS INFLM 05-17-2015 [facility] RSPN SYND N PHYSICIAN NON-INF SERVI ORIG NO AC ORGN DYSF Z6841 BODY MASS 05-16-2015 [facility] INDEX BMI COMMUNTIY 40.0-44.9 HOSPITA ADULT J208 ACUTE 04-28-2015 [facility] BRONCHITIS PHYSICIANS, DUE TO PLLC OTHER SPEC ORGANISMS K859 ACUTE 04-05-2015 [facility] PANCREATITI N EMERGENCY S PHYS UNSPECIFIED R9431 ABNORMAL 04-05-2015 [facility] ELECTROCARD [facility] IOGRAM HOSPITA 5920 CALCULUS OF 02-26-2015 [facility] [place] [facility] 5990 URINARY 02-26-2015 [facility] TRACT N EMERGENCY INFECTION PHYS SITE NOT SPECIFIED 71770 NAUSEA 02-26-2015 [facility]ONE [facility]TI[facility] HOSPITA 66481 DIARRHEA 02-26-[facility] ABDOMINAL 02-26-2015 [facility] PAIN RIGHT N EMERGENCY LOWER PHYS [facility] V1301 PERSONAL 02-26-2015 [facility] URINARY HOSPITA CALCULI V1582 PERS HX 02-26-2015 [facility] TOBACCO USE COMMUNTIY PRES[facility] 4019 UNSPECIFIED 02-19-2015 [facility] ESSENTIAL [facility] HYPERTENSIO INC N 5275 SIALOLITHIA 02-19-2015 [facility] OTHER AND 02-14-2015 [facility] UNSPECIFIED PHYSICIANS, OVARIAN PLLC CYST 85540 ABDOMINAL 12-11-2014 [place] PAIN OTHER MEDICAL SPECIFIED IMAGING ASS SITE 52167 ABDOMINAL 12-10-2014 [facility] PAIN, LEFT [facility] LOWER INC QU[facility]ANT 0419 BACTERIAL 11-26-2014 [place] [facility] UNSPECIFIED FOUNDATION CCE & UNS SITE 11707 UNSPECIFIED 11-26-2014 [facility] PYELONEPHRI TIS V4579 OTHER 11-26-2014 [facility] ABSENCE OF ORGAN 73922 ABDOMINAL 11-21-2014 [facility] [place] PAIN, RADIOLOGY UNSPECIFIED SITE 99664 ABDOMINAL 11-20-2014 [facility] PAIN, N EMERGENCY PERIUMBILIC PHYS 90251 ABDOMINAL 11-16-2014 [place] PAIN, MEDICAL EPIGASTRIC IMAGING ASS 90680 NAUSEA WITH 11-14-2014 [facility] H[facility]PITA 5589 OTH&UNSPEC 10-31-2014 [facility] NONINFECTIO PHYSICIANS, US PLLC GASTROENTER ITIS&COLITI S 7242 LUMBAGO 10-19-2014 [facility] P 61967 ABDOMINAL 10-19-2014 [place] PAIN, LEFT [facility] P QUADRANT 5921 CALCULUS OF 10-01-2014 [place] [facility] 7295 PAIN IN 10-01-2014 [place] SOFT MEDICAL TISSUES OF IMAGING ASS LIMB 8449 SPRAIN&STRA 10-01-2014 [place] IN OF MEM HOS[facility] UNSPECIFIED INC SITE OF KNEE&LEG 9597 INJURY 10-01-2014 [place] OTHER&UNSPE MEDICAL CIFIED KNEE IMAGING ASS LEG ANKLE&FOOT F17.290 Nicotine dependence, other tobacco product, uncomplicat ed N13.2 Hydronephro sis with renal and ureteral calculous obstruction N20.0 Calculus of kidney R30.0 Dysuria Z88.6 Allergy status to analgesic agent status [...] ia de te s n re d AM 66 09 10 20 10 00 EA Ac OX 68 -1 -[address] ti -C 51 9- 3- 00 00 SI ve LA 00 20 20 50 DE V 10 17 17 22 87 0 14 PH 5- AR 12 MA 5 CY MG OF TA CY BL NT ET HI AN A IN C NI 16 09 10 20 10 00 EA Ac TR 71 -2 -[address] ti OF 40 0- 3- 00 00 SI ve UR 43 20 20 50 DE AN 90 17 17 23 TO 1 74 PH IN AR MA MO CY NO -M OF CR CY NT 10 HI 0 AN MG A IN C PH 51 09 10 21 7 00 EA Ac EN 29 -2 -[address] ti AZ 30 0- 3- 00 00 SI ve OP 61 20 20 50 DE YR 10 17 17 23 ID 1 75 PH IN AR E MA 10 CY 0 MG OF CY TA NT B HI AN A IN C NI 16 09 10 14 7 00 [...] NT E HI AN A IN C WI 65 09 10 24 6 00 EA [...] 5 14 PH CE AR TA MA HI CY NO PH OF EN CY NT [...] 5 68 PH CE AR TA MA HI CY NO PH OF EN CY NT 5- HI 32 AN 5 A IN C TA 65 07 08 [...] 5 89 PH CE AR TA MA HI CY NO PH OF EN CY NT [...] BL HI ET AN A IN C HI 00 07 08 30 30 00 EA Ac RT 09 -1 -[address] ti AZ 37 8- 1- 00 00 SI ve AP 20 20 20 49 DE IN 85 17 17 47 E 6 87 PH 45 AR MA MG CY TA OF BL CY ET NT HI AN A IN C HY 00 05 06 [address] 40 -2 -[address] ti OC 60 5- 3- 00 00 SI ve OD 12 20 20 48 DE ON 30 17 17 89 -A 5 33 PH CE AR TA MA HI CY NO PH OF EN CY NT [...] AN MG A IN C CI 16 05 06 20 10 00 EA Ac WI 71 -1 -[address] ti [...] HI UL AN E A IN C AC 00 05 06 [...] 48 DE ZA 11 17 17 23 WI 0 48 PH IN AR E MA 10 CY MG OF CY TA NT BL HI ET AN A IN C WI 65 04 04 60 30 00 EA [...] HI 0 AN MG A IN C WI 59 04 04 10 5 00 EA [...] 12 01 14 7 00 EA Ac WI 71 -3 -[address] ti [...] 47 DE RA 30 16 17 07 HI 5 45 PH DE AR MA 10 [...] Order Detail nces retati t Range on Differential panel, method unspecified - (03-21-2017 00:30) Blood = 100 complet total 017 #CELLS ed cell 00:30 count Blood 1+ 1+ L complet stomato 017 ed cytes 00:30 detecti on by light mi Neutrop = 69 % 42-76 complet hil 017 ed count 00:30 Platele NORMAL complet t 017 NORMAL ed estimat 00:30 L e Monocyt = 3 % 2-9 complet e % 017 ed 00:30 LYMPH 25 % 10-50 complet 017 ed 00:30 Manual = 2 % 0-3 complet blood 017 ed eosinop 00:30 hils/10 0 leukocy paulo Basophi = 1 % 0-1 complet l % 017 ed 00:30 Blood 1+ 1+ L complet anisocy 017 ed tosis 00:30 detecti on CBC w auto diff (03-21-2017 00:30) Blood = 16.5 4.8-10. complet leukocy 017 K/MM3 8 ed paulo 00:30 count (number /volume ) Automat = 21.6 11.5-17 complet ed 017 % .5 ed erythro 00:30 cyte distrib ution width Red = 5.40 4.2-5.4 complet blood 017 M/mm3 ed cell 00:30 count Blood = 563 142-424 complet platele 017 K/mm3 ed t count 00:30 Automat = 18.3 7.4-10. complet ed 017 fl 4 ed blood 00:30 platele t mean volume jaspreet [place] % = 7.1 % 1.7-9.3 complet 017 ed 00:30 Absolut = 1.2 0.1-1.0 complet e 017 K/mm3 ed monocyt 00:30 e count Automat = 86.9 82.2-97 complet ed 017 fl .8 ed erythro 00:30 cyte mean corpusc ular v Automat = 28.6 31.8-35 complet ed 017 g/dl .4 ed erythro 00:30 cyte mean corpusc ular h Mean = 24.9 27-31.2 complet corpusc 017 pg ed ular 00:30 hemoglo bin (MCH) determ Lymphoc = 18.8 10-50.0 complet yte 017 % ed count, 00:30 blood, automat ed Absolut = 3.1 0.7-4.5 complet e 017 K/mm3 ed lymphoc 00:30 yte count Blood = 13.4 12.2-16 complet hemoglo 017 g/dL .2 ed bin 00:30 measure ment (mass/v olum Blood = 46.9 37.0-47 complet hematoc 017 % .0 ed rit 00:30 (volume fractio n) Granulo = 71.6 37.0-80 complet cyte 017 % .0 ed percent 00:30 age Blood = 11.8 1.8-7.8 complet granulo 017 K/mm3 ed cytes 00:30 automat ed count (numb Automat = 2.5 % 0.1-12. complet ed 017 0 ed blood 00:30 eosinop hils/10 0 leukocy t Automat = 0.4 0.0-0.4 complet ed 017 K/mm3 ed blood 00:30 eosinop hil count Baso % = 17.7 0.1-2.0 complet 017 % ed 00:30 Automat = 2.9 0-0.2 complet ed 017 K/MM3 ed blood 00:30 basophi l count (count/ vo Comprehensive metabolic panel (03-21-2017 00:30) Protein = 8.0 6.4-8.2 complet total 017 gm/dL ed ser/easton 00:30 s ALT = 31 12-78 complet (SGPT) 017 U/L ed ser/easton 00:30 s Serum = 11 15-37 complet or 017 U/L ed plasma 00:30 asparta te aminotr ansfera Serum = 136 136-145 complet sodium 017 mmoL/L ed measure 00:30 ment Serum = 4.1 3.5-5.1 complet potassi 017 mmoL/L ed um 00:30 measure ment Serum = 116 74-106 complet or 017 mg/dL ed plasma 00:30 glucose measure ment (mas Serum = 4.5 1.3-3.2 complet globuli 017 gm/dL ed n 00:30 measure ment (mass/v olume) Estimat = 65 59- complet ed 017 ML/MIN ed glomeru 00:30 lar filtrat ion rate (GF Comment: REFERENCE RANGE: >60 ML/MIN/1.73 SQUARE METERS Comment: If this patient is -Congolese, then multiply the Comment: result by 1.210. Estimat = 138 50-200 complet ion of 017 ML/MIN ed creatin 00:30 ine renal clearan ce Serum = 1.0 0.55-1. complet or 017 mg/dL 02 ed plasma 00:30 creatin ine measure ment ( Carbon = 28 21.0-32 complet dioxide 017 mmoL/L .0 ed 00:30 measure ment Serum = 102 98-107 complet or 017 mmoL/L ed plasma 00:30 chlorid e measure ment (mo Serum = 8.9 8.5-10. complet or 017 mg/dL 1 ed plasma 00:30 calcium measure ment (mas Serum = 18 7-18 complet or 017 mg/dL ed plasma 00:30 urea nitroge n measure men Serum = 0.3 0.2-1.0 complet or 017 mg/dL ed plasma 00:30 total bilirub in measure m Serum = 74 46-116 complet or 017 U/L ed plasma 00:30 alkalin e phospha tase jaspreet Serum = 3.5 3.4-5.0 complet or 017 gm/dL ed plasma 00:30 albumin measure ment (mas Serum = 0.8 1.1-1.8 complet or 017 ed plasma 00:30 albumin /globul in mass ra Differential panel, method unspecified - (03-21-2017 00:30) Anisocy 1+ complet tosis 017 ed [Presen 00:30 ce] in Blood LYMPH 25 % 10% - Normal complet 017 50% ed 00:30 Platele NORMAL complet ts 017 ed [Presen 00:30 ce] in Blood by Light microsc opy Stomato 1+ complet cytes 017 ed [Presen 00:30 ce] in Blood by Light microsc opy Urine test (03-21-2017 00:25) Urine = NEG complet pregnan 017 NEGATIV ed cy test 00:25 E Urinalysis with microscopy (03-21-2017 00:24) Urine 20 - 50 O complet leukocy 017 ed paulo 00:24 wbc/hpf count (number /volume ) Urine 0.2 0.2 NEG complet urobili 017 L ed nogen 00:24 E.U./dL detecti on by test str [place] 3-5 3-5 0-5 complet s 017 L ed epithel 00:24 #/hpf ial cells detecti on in u Urine = 1.015 1.005-1 complet specifi 017 .030 ed c 00:24 gravity measure ment Erythro 10-20 0 complet cytes 017 10-20 L ed detecti 00:24 on in rbc/hpf urine sedimen t Urine = NEG complet protein 017 NEGATIV ed 00:24 E mg/dL measure ment by automat ed t Urine = 7.0 5.0-8.5 complet pH 017 ed 00:24 Urine NEGATIV NEG complet nitrite 017 E ed 00:24 NEGATIV detecti E L on by test strip Mucus 1+ 1+ L OCC complet detecti 017 ed on in 00:24 urine sedimen t by lig Mucus 3+ 3+ L NEG complet detecti 017 ed on in 00:24 urine sedimen t by lig Urine NEGATIV NEG complet ketones 017 E ed 00:24 NEGATIV detecti E L on by mg/dL automat ed paulo Glucose = NEG complet ur 017 NEGATIV ed test 00:24 E strip Urine YELLOW YELLOW complet color 017 YELLOW ed 00:24 L Urine 2+ 2+ L NEG complet blood 017 ed detecti 00:24 on Urine NEGATIV NEG complet total 017 E ed bilirub 00:24 NEGATIV in E L detecti on by test Bacteri 1+ 1+ L O complet a 017 ed detecti 00:24 on in urine sedimen t by Urine CLEAR CLEAR complet appeara 017 CLEAR L ed nce 00:24 determi nation Urinalysis dipstick W Reflex Microscopic panel in Urine (03-21-2017 00:24) Bacteri 1+ O complet a 017 ed [Presen 00:24 ce] in Urine sedimen t by Light microsc opy Mucus 1+ OCC complet [Presen 017 ed ce] in 00:24 Urine sedimen t by Light microsc opy Erythro 10-20 0 complet cytes 017 ed [Presen 00:24 ce] in Urine sedimen t by Light microsc opy Epithel 3-5 0#/hp complet ial 017 f - ed cells.s 00:24 5#/hp quamous f [Presen ce] in Urine sedimen t by Microsc opy high power field Leukocy 20-50 O complet paulo 017 wbc/hpf ed [#/volu 00:24 me] in Urine Urinalysis dipstick W Reflex Microscopic panel in Urine (03-21-2017 00:24) Appeara CLEAR CLEAR complet nce of 017 ed Urine 00:24 Bilirub NEGATIV NEG complet in 017 E ed [Presen 00:24 ce] in Urine by Test strip Erythro 2+ NEG Abnorma complet cytes 017 l ed [Presen 00:24 ce] in Urine Color YELLOW YELLOW complet of 017 ed Urine 00:24 Ketones NEGATIV NEG complet 017 E ed [...] sedimen t by Light microsc opy Erythro 02-27- OCC 0 complet cytes 017 ed [Presen 15:00 ce] in Urine sedimen t by Light microsc opy Epithel 02-27- 20-50 0#/hp complet ial 017 f - ed cells.s 15:00 5#/hp quamous f [Presen ce] in Urine sedimen t by Microsc opy high power field Leukocy 02-27-2 10-20 O complet paulo 017 wbc/hpf ed [...] Procedure DOS Code Location Performer Comment URINLS 14063 A C KILPELA DIP 7 JAVIER ROMAN STICK/TAB PSC LET REAGNT NON-AUTO MICRSCPY RADEX 84960 [place] [facility] ABDOMEN 1 7 MEDICAL IMAGING ANTEROPOS ASS TERIOR VIEW LUMB L0627 [facility] VALLESRELL ORTHOSIS 7 HOME HOME SAGIT MEDICAL MEDICAL CNTRL EQUIPME EQUIPME RIGID A&P PANEL PREFAB UNCLASSIF J3490 [facility] IED DRUGS 7 [facility] INC INC RADEX 83546 [facility] SOSAINEKE SPINE 7 MEDICAL LUMBOSACR IMAGING AL ASS MINIMUM 4 VIEWS URINE 68704 [facility]USTAMANTE 7 [facility] TEST INC INC VISUAL COLOR CMPRSN METHS URINE 01414 [facility]AM[facility]TE 7 [facility] TEST INC INC VISUAL COLOR CMPRSN METHS CULTURE 40845 [facility] BACTERIAL 7 [facility] INC INC QUANTTATI VE COLONY COUNT URINE URNLS DIP 29254 [facility]USTAM[facility]TE 7 [facility] STICK/TAB INC INC LET REAGENT AUTO MICROSCOP Y BLOOD 79595 [facility] COUNT 7 [facility] COMPLETE INC INC AUTO&AUTO DIFRNTL WBC COLLECTIO 48109 [facility] N VENOUS 7 [facility] BLOOD INC INC VENIPUNCT URE COMPREHEN 59043 [facility] SIVE 7 [facility] METABOLIC INC INC PANEL CULTURE 03469 [facility] BACTERIAL 7 [facility] QUANTTATI VE COLONY COUNT URINE URINLS 19622 A Kaelyn ROSALES DIP 7 JAVIER ROMAN STICK/TAB PSC LET REAGNT NON-AUTO MICRSCPY OBSERVATI 23616 A Kaelyn RICHTER ON CARE 7 [facility] DISCHARGE PSC MANAGEMEN T BLOOD 08937 [facility] COUNT 7 [facility] COMPLETE INC INC AUTO&AUTO DIFRNTL WBC UNCLASSIF J3490 [facility] IED DRUGS 7 [facility] INC INC UNCLASSIF J3490 [facility]NA [facility] IED DRUGS 7 [facility] G0378 [facility] OBSERVATI 7 [facility] ON INC INC SERVICE PER HOUR INITIAL 43385 A Kaelyn RICHTER OBSERVATI 7 JAVIER ROMAN ON PSC CARE/DAY 70 MINUTES BLOOD 63122 [facility] COUNT 7 [facility] COMPLETE INC INC AUTO&AUTO DIFRNTL WBC BASIC 74396 [facility] METABOLIC 7 [facility] PANEL INC INC CALCIUM TOTAL CULTURE 56987 [facility] BACTERIAL 7 [facility] INC INC QUANTTATI VE COLONY COUNT URINE URNLS DIP 96407 [facility] 7 [facility] STICK/TAB INC INC LET REAGENT AUTO MICROSCOP Y COMPREHEN 38339 [facility] SIVE 7 [facility] METABOLIC INC INC PANEL BLOOD 33782 [facility] COUNT 7 [facility] COMPLETE INC INC AUTO&AUTO DIFRNTL [facility] G0378 [facility] B[facility] OBSERVATI 7 [facility] ON INC INC SERVICE PER HOUR UNCLASSIF J3490 [facility]NA [facility] IED DRUGS 7 [place] [address] [facility] INFUSION 7 [facility] THERAPY/P INC INC ROPHYLAXI S /DX 1ST TO 1 HR THERAPEUT 91381 [facility] IC 7 [facility] INJECTION INC INC IV PUSH EACH NEW DRUG GROUND A0425 [facility] MILEA 7 AMBULANCE AMBULANCE PER SERVICE SERVICE STATUTE MILE AMBULANCE [id number] [facility] SERVICE 7 AMBULANCE AMBULANCE BLS [place] [address] [facility] [place] [facility] ABDOMEN & 7 RADIOLOGY PELVIS W/CONTRAS T MATERIAL URNLS DIP 19765 [facility] 7 [facility] STICK/TAB INC INC [place] [address] [facility] LIPASE 7 [facility] INC INC CULTURE 53077 [facility] BACTERIAL 7 [facility] INC [place] [address] [facility] B[facility] ABDOMEN & 7 [facility] PELVIS INC INC W/O CONTRAST MATERIAL URINE 03570 [facility] B[facility]TE 7 [facility] MEM [facility] TEST INC INC VISUAL COLOR CMPRSN METHS THERAPEUT 94837 DIANNA BUSTAMANTE IC 7 [facility] PROPHYLAC INC INC TIC/DX INJECTION SUBQ/IM UNCLASSIF J3490 DIANNA BUSTAMANTE IED DRUGS 7 [facility] INC INC BLOOD 53307 DIANNA BUSTAMANTE COUNT 7 [facility] COMPLETE INC INC AUTO&AUTO DIFRNTL WBC COLLECTIO 03649 DIANNA BUSTAMANTE N VENOUS 7 [facility] BLOOD INC INC VENIPUNCT URE COMPREHEN 62303 DIANNA BUSTAMANTE SIVE 7 [facility] [address] DIANNA BUSTAMANTE AMYLASE 7 [facility] INC INC URINLS 33730 A C RICK DIP 7 JAVIER ROMAN STICK/TAB PSC LET REAGNT NON-AUTO MICRSCPY UNCLASSIF J3490 DIANNA BUSTAMANTE IED DRUGS 7 [facility] INC INC COLLECTIO 69980 A C MERLINE N VENOUS 7 JAVIER ROMAN BLOOD PSC VENIPUNCT URE BLOOD 12394 A C MERLINE COUNT 7 JAVIER ROMAN COMPLETE PSC AUTO&AUTO DIFRNTL WBC URINLS 63756 A C MERLINE DIP 7 JAVIER ROMAN STICK/TAB [place] [address] [facility] ABDOMEN & 7 RADIOLOGY PELVIS W/O CONTRAST MATERIAL URNLS DIP 11366 DIANNA BUSTAMANTE 7 [facility] STICK/TAB INC INC LET REAGENT AUTO MICROSCOP Y CULTURE 90188 DIANNA BUSTAMANTE BACTERIAL 7 [facility] INC INC QUANTTATI VE COLONY COUNT URINE UNCLASSIF J3490 DIANNA BUSTAMANTE IED DRUGS 7 [place] [address] [facility] ABDOMEN & 7 MEDICAL PELVIS IMAGING W/O ASS CONTRAST MATERIAL URNLS DIP 63800 [facility] 6 N N STICK/TAB COMMUNTIY COMMUNTIY LET HOSPITA HOSPITA REAGENT AUTO MICROSCOP Y CULTURE 02325 [facility] BACTERIAL 6 N N COMMUNTIY COMMUNTIY QUANTTATI HOSPITA HOSPITA VE COLONY COUNT URINE THERAPEUT 29161 [facility] IC 6 N N PROPHYLAC COMMUNTIY COMMUNTIY TIC/DX HOSPITA HOSPITA INJECTION SUBQ/IM ECG 96587 [facility] ROUTINE 6 SAMANTHA ECG EMERGENCY W/LEAST SERV 12 LDS I&R ONLY RADIOLOGI 33344 [facility] [place] FIDENCIO C 6 RADIOLOGY EXAMINATI ON CHEST SINGLE VIEW FRONTAL URINE 31327 DIANNA BUSTAMANTE 6 [facility] TEST INC INC VISUAL COLOR CMPRSN METHS CULTURE 39855 DIANNA BUSTAMANTE BACTERIAL 6 [facility] INC INC QUANTTATI VE COLONY COUNT URINE URNLS DIP 47848 DIANNA BUSTAMANTE 6 [facility] STICK/TAB INC INC LET REAGENT AUTO MICROSCOP Y UNCLASSIF J3490 DIANNA BUSTAMANTE IED DRUGS 6 [facility] [place] [address] [facility] [place] BROWN ABDOMEN & 6 RADIOLOGY III KISHA PELVIS W/O CONTRAST MATERIAL OBSERVATI 77105 A Kaelyn RICHTER SHAYY ON/INPATI 6 JAVIER ROMAN ENT [facility] CARE [address] [place] [address] [place] ABDOMEN & 6 MEDICAL WOL[place]ANG PELVIS IMAGING W/O ASS CONTRST 1/> BODY RE URINLS 76388 A C MERLINE DIP 6 JAVIER [facility] STICK/TAB PSC LET REAGNT NON-AUTO MICRSCPY THERAPEUT 42005 A Kaelyn RICK IC 6 JAVIER [facility] PROPHYLAC PSC TIC/DX INJECTION SUBQ/IM INJECTION J2550 A Kaelyn RICK 6 JAVIER [facility] PROMETHAZ PSC INE HCL UP TO 50 MG COLLECTIO 83204 DIANNA BUSTAMANTE N VENOUS 6 [facility] [place] [address] DIANNA BUSTAMANTE AMYLASE 6 [facility] INC INC COMPREHEN 68318 DIANNA BUSTAMANTE SIVE 6 [facility] [place] [address] DIANNA BUSTAMANTE LIPASE 6 [facility] INC INC BLOOD 26359 DIANNA BUSTAMANTE COUNT 6 [facility] COMPLETE INC INC AUTO&AUTO DIFRNTL WBC URINLS 90220 A C MERLINE DIP 6 JAVIER [facility] STICK/TAB PSC LET REAGNT NON-[place] [address] [place] CONNORS ALL JT LOWER 6 MEDICAL EXTREM IMAGING [place] [address] DIANNA BUSTAMANTE RETROPERI 6 [facility] TONEAL INC [place] [address] ROBERTA CONNORS ALL RETROPERI 6 MEDICAL TONEAL IMAGING REAL TIME ASS W/IMAGE LIMITED THERAPEUT 01004 A Kaelyn RICK IC 6 JAVIER [facility] PROPHYLAC PSC TIC/DX INJECTION SUBQ/IM URINLS 35269 A C MERLINE DIP 6 JAVIER [facility] STICK/TAB PSC LET REAGNT NON-AUTO MICRSCPY BLOOD 17402 A C RICK COUNT 6 JAVIER [facility] COMPLETE PSC AUTO&AUTO DIFRNTL WBC INJECTION J0696 A C RICK 6 JAVIER [facility] CEFTRIAXO PSC NE SODIUM PER 250 MG BLOOD 03467 A C RICK COUNT 6 JAVIER [facility] COMPLETE PSC AUTO&AUTO DIFRNTL WBC INJECTION J0696 A C RICK 6 JAVIER [facility]I CEFTRIAXO PSC NE SODIUM PER 250 MG URINLS 66046 A C RICK DIP 6 JAVIER [facility] STICK/TAB PSC LET REAGNT NON-AUTO MICRSCPY THERAPEUT 77274 A C MERLINE IC 6 JAVIER [facility] PROPHYLAC PSC TIC/DX INJECTION SUBQ/IM THERAPEUT 05398 A C MERLINE IC 6 JAVIER [facility] PROPHYLAC PSC TIC/DX INJECTION SUBQ/IM URINLS 02114 A C MERLINE DIP 6 JAVIER [facility]I STICK/TAB PSC LET REAGNT NON-AUTO MICRSCPY CUL BACT 07453 [facility] AEROBIC 6 ROSY ROSY ADDL HOLDINGS HOLDINGS METHS DEFINITIV E EA ISOL CULTURE 75430 [facility] BACTERIAL 6 ROSY ROSY HOLDINGS HOLDINGS QUANTTATI VE COLONY COUNT URINE CULTURE 47696 [facility] LAB JANNA BCT 6 ROSY ROSY ISOL&PRSM HOLDINGS HOLDINGS PTV ID ISOLATE EA URINE SUSCEPTIB 05049 [facility]NA LTY STDY 6 ROSY ROSY ANTIMICRB HOLDINGS HOLDINGS IAL MICRO/AGA R DILUTJ INJECTION J0696 A Kaelyn RICK 6 JAVIER CHI CEFTRIAXO PSC NE SODIUM PER 250 MG INJECTION J2550 A C A C 6 JAVIER HERRERA MD PROMETHAZ PSC PSC INE HCL UP [place] [address] [place] [address] ROBERTA CONNORS ALL ABDOMEN & 6 MEDICAL PELVIS IMAGING W/O ASS CONTRAST MATERIAL RADIOLOGI 68625 ROBERTA JULESUTCHER C 6 MEDICAL WOL[place]ANG EXAMINATI IMAGING ON ANKLE ASS 2 VIEWS URINLS 01257 A C CONNIE DIP 6 JAVIER ROMAN JEA STICK/TAB PSC LET REAGNT NON-AUTO MICRSCPY RADEX 36791 ROBERTA CONNORS ALL SPINE 6 MEDICAL LUMBOSACR IMAGING AL 2/3 ASS VIEWS RADEX 61304 DIANNA PALACIOSON SPINE 6 [facility] LUMBOSACR INC INC AL MINIMUM 4 VIEWS RADEX 40169 DIANNA BUSTAMANTE ANKLE 6 [facility] COMPLETE INC INC MINIMUM 3 VIEWS RADEX 85256 [place] MERHAR ANKLE 6 MEDICAL GAR COMPLETE SERV MINIMUM 3 FOUNDATIO VIEWS N RADEX 17896 [place] MERHAR FOOT 6 MEDICAL GAR COMPLETE SERV MINIMUM [address] [place] [address] [facility] [place] JAM ABDOMEN & 6 RADIOLOGY PELVIS W/O CONTRAST MATERIAL URINLS 50633 A C MERLINE DIP 6 JAVIER ROMAN ARTI STICK/TAB [place] [address] [place] PAWLEY RETROPERI 6 MEDICAL BAR TONEAL SERV REAL TIME FOUNDATIO W/[place] [address] [facility] [place] SCALF RITO ABDOMEN & 6 RADIOLOGY PELVIS W/O CONTRAST MATERIAL URNLS DIP 02662 DIANNA BUSTAMANTE 6 [facility] STICK/TAB INC [place] [address] DIANNA BUSTAMANTE ABDOMEN & 6 [facility] PELVIS INC INC W/O CONTRAST MATERIAL CULTURE 85617 DIANNA BUSTAMANTE BACTERIAL 6 [facility] INC INC QUANTTATI VE COLONY COUNT URINE COMPREHEN 52224 DIANNA BUSTAMANTE SIVE 6 [facility] METABOLIC INC INC PANEL BLOOD 79036 DIANNA BUSTAMANTE COUNT 6 [facility] COMPLETE INC INC AUTO&AUTO DIFRNTL WBC COLLECTIO 27201 DIANNA BUSTAMANTE N VENOUS 6 [facility] BLOOD INC INC VENIPUNCT URE THERAPEUT 19979 DIANNA BUSTAMANTE IC 6 [facility] INJECTION INC INC IV PUSH EACH NEW DRUG THER 37795 DIANNA PALACIOSON PROPH/DX 6 [facility] NJX IV INC INC PUSH SINGLE/1S T SBST/DRUG UNCLASSIF J3490 DIANNA PALACIOSON IED DRUGS 6 [facility] [place] [address] ROBERTA JULESUTCHER ABDOMEN & 6 MEDICAL WOLFG[place] PELVIS IMAGING W/O ASS CONTRAST MATERIAL RADIOLOGI 52033 ROBERTA CONNORS ALL C 6 MEDICAL EXAMINATI IMAGING ON [place]LE [place] [address] [place] [address] [facility] A[facility] & 6 MEDICAL MARCIA PELVIS IMAGING W/[place] [address] [facility] [place] YULI ABDOMEN & 6 RADIOLOGY RHO PELVIS W/[place] [address] [facility] [place] FU ABDOMEN & 6 RADIOLOGY CAR PELVIS W/O CONTRAST MATERIAL THERAPEUT 74417 DIANNA BUSTAMANTE IC 6 [facility] PROPHYLAC INC INC TIC/DX INJECTION SUBQ/IM BASIC 02279 DIANNA BUSTAMANTE METABOLIC 6 [facility] PANEL INC INC CALCIUM TOTAL UNCLASSIF J3490 DIANNA DIANNA IED DRUGS 6 [facility] INC INC BLOOD 26821 DIANNA BUSTAMANTE COUNT 6 [facility] COMPLETE INC INC AUTO&AUTO DIFRNTL WBC COLLECTIO 14562 DIANNA BUSTAMANTE N VENOUS 6 [facility] BLOOD INC INC VENIPUNCT URE COLLECTIO 26601 [facility] N VENOUS 6 N N BLOOD COMMUNTIY COMMUNTIY VENIPUNCT HOSPITA HOSPITA URE BLOOD 82573 [facility] COUNT 6 N N COMPLETE COMMUNTIY COMMUNTIY AUTO&[place] [address] [facility] INFUSION 6 N N THER COMMUNTIY COMMUNTIY PROPH HOSPITA HOSPITA ADDL [place]ENT[place] L [place] [address] [facility] INFUSION 6 N N HYDRATION COMMUNTIY COMMUNTIY EACH HOSPITA HOSPITA ADDITIONA L HOUR SUSCEPTIB 15050 [facility] LTY STDY 6 N N ANTIMICRB COMMUNTIY COMMUNTIY IAL HOSPITA HOSPITA MICRO/AGA R DILUTJ COMPREHEN 72530 [facility] SIVE 6 N N METABOLIC COMMUNTIY [place] [address] [facility] INFUSION 6 N N THERAPY/P COMMUNTIY COMMUNTIY ROPHYLAXI HOSPITA HOSPITA S /DX 1ST TO 1 HR THERAPEUT 31061 [facility] IC 6 N N INJECTION COMMUNTIY COMMUNTIY IV PUSH HOSPITA HOSPITA EACH NEW DRUG CUL BACT 33358 [facility] AEROBIC 6 N N ADDL COMMUNTIY COMMUNTIY METHS HOSPITA HOSPITA DEFINITIV E EA ISOL URINE 37295 [facility] 6 N N TEST COMMUNTIY COMMUNTIY VISUAL HOSPITA HOSPITA COLOR CMPRSN METHS CULTURE 56831 [facility] BACTERIAL 6 N N COMMUNTIY COMMUNTIY QUANTTATI HOSP[place] [address] [facility] ABDOMEN & 6 N N PELVIS COMMUNTIY COMMUNTIY W/O HOSPITA HOSPITA CONTRAST MATERIAL URNLS DIP 32867 [facility] 6 N N STICK/TAB COMMUNTIY COMMUNTIY LET HOSPITA HOSPITA REAGENT AUTO MICROSCOP Y URNLS DIP 41261 [facility] 5 N N STICK/TAB COMMUNTIY COMMUNTIY LET HOSPITA HOSPITA [place] [address] [facility] LIPASE 5 N N COMMUNTIY COMMUNTIY HOSPITA HOSPITA THER 25693 [facility] PROPH/DX 5 N N NJX EA COMMUNTIY COMMUNTIY SEQL IV HOSPITA HOSPITA PUSH SBST/DRUG FAC CULTURE 96054 [facility] BACTERIAL 5 N N COMMUNTIY COMMUNTIY QUANTTATI HOSPITA HOSPITA VE COLONY COUNT URINE THERAPEUT 96048 [facility] IC 5 N N INJECTION COMMUNTIY COMMUNTIY IV PUSH HOSPITA HOSPITA EACH NEW DRUG INJECTION J2550 [facility] 5 N N PROMETHAZ COMMUNTIY COMMUNTIY INE HCL HOSPITA HOSPITA UP [place] 50 [place] [address] [facility] INFUSION 5 N N THERAPY/P COMMUNTIY COMMUNTIY ROPHYLAXI HOSPITA HOSPITA S /DX 1ST TO 1 HR COMPREHEN 76337 [facility] SIVE 5 N N METABOLIC COMMUNTIY [place] [address] [facility] INFUSION 5 N N HYDRATION COMMUNTIY COMMUNTIY EACH HOSPITA HOSPITA ADDITIONA L HOUR COLLECTIO 43507 [facility] N VENOUS 5 N N BLOOD COMMUNTIY COMMUNTIY VENIPUNCT HOSPITA HOSPITA URE BLOOD 64119 [facility] COUNT 5 N N COMPLETE COMMUNTIY COMMUNTIY AUTO&AUTO HOSPITA HOSPITA DIFRNTL WBC INJECTION J2270 [facility] MORPHINE 5 N N SULFATE COMMUNTIY COMMUNTIY UP TO 10 HOSPITA HOSPITA MG RADEX 90002 DIANNA BUSTAMANTE ABDOMEN 1 5 [facility] INC INC ANTEROPOS TERIOR VIEW THER 15904 [facility] PROPH/DX 5 N N NJX EA COMMUNTIY COMMUNTIY SEQL IV HOSPITA HOSPITA PUSH SBST/DRUG FAC BASIC 20177 [facility] METABOLIC 5 N N PANEL COMMUNTIY COMMUNTIY CALCIUM HOSPITA HOSPITA TOTAL OBSERVATI 61453 [facility] ON CARE 5 SAMANTHA A GOP DISCHARGE PHYSICIAN SERVI MANAGEMEN T PROTHROMB 63445 [facility] IN TIME 5 N N COMMUNTIY COMMUNTIY HOSPITA HOSPITA BLOOD 19680 [facility] COUNT 5 N N HEMOGLOBI COMMUNTIY COMMUNTIY N HOSPITA HOSPITA COLLECTIO 37769 [facility] N VENOUS 5 N N BLOOD COMMUNTIY COMMUNTIY VENIPUNCT HOSPITA HOSPITA URE BLOOD 86964 [facility] COUNT 5 N N HEMATOCRI COMMUNTIY COMMUNTIY T HOSPITA HOSPITA INJECTION J2704 [facility] PROPOFOL 5 N N 10 MG COMMUNTIY COMMUNTIY HOSPITA HOSPITA INJECTION J1100 [facility] 5 N N DEXAMETHO COMMUNTIY COMMUNTIY SONE HOSPITA HOSPITA SODIUM PHOSPHATE 1 MG INJECTION J1170 [facility] 5 N N HYDROMORP COMMUNTIY COMMUNTIY RON UP HOSPITA HOSPITA TO 4 MG INJ J2543 [facility] PIPERACIL 5 N N MEGHAN COMMUNTIY COMMUNTIY SOD/TAZOB HOSPITA HOSPITA ACTAM SOD 1 G/0.125 G INJECTION J2550 [facility] 5 N N PROMETHAZ COMMUNTIY COMMUNTIY INE HCL HOSPITA HOSPITA UP TO 50 MG INJECTION J2001 [facility] 5 N N LIDOCAINE COMMUNTIY COMMUNTIY HCL HOSPITA HOSPITA INTRAVENO US INFUS 10 MG RINGERS J7120 [facility] LACTATE 5 N N INFUSION COMMUNTIY COMMUNTIY UP TO HOSPITA HOSPITA 1000 CC INJECTION J0696 [facility] 5 N N CEFTRIAXO COMMUNTIY COMMUNTIY NE SODIUM HOSPITA HOSPITA PER 250 MG INJECTION J2550 [facility] 5 N N PROMETHAZ COMMUNTIY COMMUNTIY INE HCL HOSPITA HOSPITA UP TO 50 MG INJ J2543 [facility] PIPERACIL 5 N N MEGHAN COMMUNTIY COMMUNTIY SOD/TAZOB HOSPITA HOSPITA ACTAM SOD 1 G/0.125 G INJECTION J1170 [facility] 5 N N HYDROMORP COMMUNTIY COMMUNTIY RON UP HOSPITA HOSPITA TO 4 MG TOBACCO 55715 [facility] USE 5 N N CESSATION COMMUNTIY COMMUNTIY HOSPITA HOSPITA INTERMEDI ATE 3-10 MINUTES ANES 07729 [place] [facility] TRURL 5 ANESTHESI JERILYN FRAGMNTJ A GROUP MANJ&/RMV PS L URETERAL CALCULUS GUIDE C1769 [facility] WIRE 5 N N COMMUNTIY COMMUNTIY HOSPITA HOSPITA STENT C2617 [facility] NON-COR 5 N N TEMPORARY COMMUNTIY COMMUNTIY WITHOUT [place] [address] [facility] INFUSION 5 N N THERAPY/P COMMUNTIY COMMUNTIY ROPHYLAXI HOSPITA HOSPITA S /DX 1ST TO 1 HR INFUSION J7030 [facility] NORMAL 5 N N SALINE COMMUNTIY COMMUNTIY SOLUTION HOSPITA HOSPITA 1000 CC COLLECTIO 30986 [facility] N VENOUS 5 N N BLOOD COMMUNTIY COMMUNTIY VENIPUNCT HOSPITA HOSPITA URE BLOOD 04812 [facility] COUNT 5 N N COMPLETE COMMUNTIY COMMUNTIY AUTO&AUTO HOSPITA HOSPITA DIFRNTL WBC SBSQ 28147 [facility] OBSERVATI 5 SAMANTHA A GOP ON PHYSICIAN CARE/DAY SERVI 35 MINUTES COMPREHEN 76408 [facility] SIVE 5 N N METABOLIC COMMUNTIY COMMUNTIY PANEL HOSPITA HOSPITA DILATION 83217 [facility] VASQUEZ NEPHROSTO 5 ALPESH ALPESH MY/URETER /URETHRA RS&I THER 04503 [facility] PROPH/DX 5 N N NJX EA COMMUNTIY COMMUNTIY SEQL IV HOSPITA HOSPITA PUSH SBST/[place] [address] [facility] [place] SCAL[place] RIT[place] ABDOMEN & 5 RADIOLOGY PELVIS W/O CONTRAST MATERIAL CALCULUS 69921 [facility] QUANTITAT 5 N N DEVYN COMMUNTIY COMMUNTIY CHEMICAL HOSPITA HOSPITA URNLS DIP 47114 [facility] 5 N N STICK/TAB COMMUNTIY COMMUNTIY LET HOSPITA HOSPITA REAGENT AUTO MICROSCOP Y CYSTO 04950 [facility] VASQUEZ W/INSERT 5 ALPESH ALPESH URETERAL STENT URINE 56352 [facility] 5 N N TEST COMMUNTIY COMMUNTIY VISUAL HOSPITA HOSPITA COLOR CMPRSN METHS CYSTO 06527 [facility] VASQUEZ W/URETERO 5 ALPESH ALPESH SCOPY W/RMVL/MA NJ STONES CULTURE 78990 [facility] BACTERIAL 5 N N COMMUNTIY COMMUNTIY QUANTTATI HOSPITA HOSPITA VE COLONY COUNT URINE CULTURE 59279 [facility] BACTERIAL 5 N N COMMUNTIY COMMUNTIY QUANTTATI HOSPITA HOSPITA VE COLONY COUNT URINE INTRODUCT 73474 [facility] ION 5 SAMANTHA JERILYN NEEDLE/IN EMERGENCY TRACATHET PHYS ER VEIN THROMBOPL 29754 [facility] ASTIN 5 N N TIME COMMUNTIY COMMUNTIY PARTIAL HOSPITA HOSPITA PLASMA/WH OLE BLOOD URNLS DIP 39418 [facility] 5 N N STICK/TAB COMMUNTIY COMMUNTIY LET HOSPITA [place] [address] [facility] ABDOMEN & 5 [facility] [place] PELVIS IMAGING W/O ASS CONTRAST MATERIAL THER 63607 [facility] PROPH/DX 5 N N NJX EA COMMUNTIY COMMUNTIY SEQL IV HOSPITA HOSPITA PUSH SBST/DRUG FAC CULTURE 04742 [facility] BACTERIAL 5 N N BLOOD COMMUNTIY COMMUNTIY AEROBIC HOSPITA HOSPITA W/ID ISOLATES COMPREHEN 65115 [facility] SIVE 5 N N METABOLIC COMMUNTIY COMMUNTIY PANEL HOSPITA HOSPITA HOSPITAL G0378 [facility] OBSERVATI 5 N N ON COMMUNTIY COMMUNTIY SERVICE HOSPITA HOSPITA PER HOUR INITIAL 48585 [facility] OBSERVATI 5 SAMANTHA A GOP ON PHYSICIAN CARE/DAY SERVI 70 MINUTES BLOOD 30388 [facility] COUNT 5 N N COMPLETE COMMUNTIY COMMUNTIY AUTO&AUTO HOSPITA HOSPITA DIFRNTL WBC COLLECTIO 77942 [facility] N VENOUS 5 N N BLOOD COMMUNTIY COMMUNTIY VENIPUNCT HOSPITA HOSPITA URE INFUSION J7030 [facility] NORMAL 5 N N SALINE COMMUNTIY COMMUNTIY SOLUTION HOSPITA HOSPITA 1000 CC THERAPEUT 58232 [facility] IC 5 N N PROPHYLAC COMMUNTIY COMMUNTIY TIC/DX HOSPITA HOSPITA INJECTION SUBQ/IM THERAPEUT 30787 [facility] IC 5 N N INJECTION COMMUNTIY COMMUNTIY IV PUSH HOSPITA HOSPITA EACH NEW DRUG INJECTION J1170 [facility] 5 N N HYDROMORP COMMUNTIY COMMUNTIY RON UP HOSPITA HOSPITA TO 4 MG INJ J2543 [facility] PIPERACIL 5 N N MEGHAN COMMUNTIY COMMUNTIY SOD/TAZOB HOSPITA HOSPITA ACTAM SOD 1 G/0.125 G INJECTION J2550 [facility] 5 N N PROMETHAZ COMMUNTIY COMMUNTIY INE HCL HOSPITA HOSPITA UP TO 50 MG INJECTION J2270 [facility] MORPHINE 5 N N SULFATE COMMUNTIY COMMUNTIY UP TO 10 HOSPITA HOSPITA MG CULTURE 89246 DI[facility] BUSTAMANTE BACTERIAL 5 MEM [facility] INC INC QUANTTATI VE COLONY COUNT URINE URNLS DIP 26969 DIANNA BUSTAMANTE 5 [facility] STICK/TAB INC INC LET REAGENT AUTO MICROSCOP Y URINE 08385 DI[facility] BUSTAMANTE 5 [facility] TEST INC INC VISUAL COLOR CMPRSN METHS UNCLASSIF J3490 DIANNA BUSTAMANTE IED DRUGS 5 [facility] INC INC INFUSION J7030 [facility] NORMAL 5 N N SALINE COMMUNTIY COMMUNTIY SOLUTION HOSPITA HOSPITA 1000 CC ECG 13330 [facility] CELLAROSI ROUTINE 5 SAMANTHA - YORBA ECG EMERGENCY PAT W/LEAST PHYS 12 LDS I&[place] [address] [facility] INFUSION 5 N N THERAPY/P COMMUNTIY COMMUNTIY ROPHYLAXI HOSPITA HOSPITA S /DX 1ST TO 1 HR INJECTION J2550 [facility] 5 N N PROMETHAZ COMMUNTIY COMMUNTIY INE HCL HOSPITA HOSPITA UP TO 50 MG THERAPEUT 14592 [facility] IC 5 N N INJECTION COMMUNTIY COMMUNTIY IV PUSH HOSPITA HOSPITA EACH NEW DRUG COLLECTIO 30479 [facility] N VENOUS 5 N N BLOOD COMMUNTIY COMMUNTIY VENIPUNCT HOSPITA HOSPITA URE BLOOD 23121 [facility] COUNT 5 N N COMPLETE COMMUNTIY [place] [address] [facility] INFUSION 5 N N HYDRATION COMMUNTIY COMMUNTIY EACH HOSPITA HOSPITA ADDITIONA L HOUR COMPREHEN 25316 [facility] SIVE 5 N N METABOLIC COMMUNTIY COMMUNTIY PANEL HOSPITA HOSPITA BLOOD 68801 [facility] COUNT 5 N N SMEAR COMMUNTIY COMMUNTIY MCRSCP HOSPITA HOSPITA W/MNL DIFRNTL WBC COUNT URINE 57358 [facility] 5 N N TEST COMMUNTIY COMMUNTIY VISUAL HOSPITA HOSPITA COLOR CMPRSN METHS CULTURE 60043 [facility] BACTERIAL 5 N N COMMUNTIY COMMUNTIY QUANTTATI HOSPITA HOSPITA VE COLONY COUNT URINE URNLS DIP 85029 [facility] 5 N N STICK/TAB COMMUNTIY COMMUNTIY LET HOSPITA HOSPITA REAGENT AUTO MICROSCOP Y ECG 93471 [facility] ROUTINE 5 N N ECG COMMUNTIY COMMUNTIY W/LEAST HOSPITA HOSPITA 12 LDS TRCG ONLY W/O I&[place] [address] [facility] LIPASE 5 N N COMMUNTIY COMMUNTIY HOSPITA HOSPITA INJECTION J2270 [facility] MORPHINE 5 N N SULFATE COMMUNTIY COMMUNTIY UP TO 10 HOSPITA HOSPITA MG INJECTION J2270 [facility] MORPHINE 5 N N SULFATE COMMUNTIY COMMUNTIY UP TO 10 HOSPITA HOSPITA MG INFUSION J7030 [facility] NORMAL 5 N N SALINE COMMUNTIY COMMUNTIY SOLUTION HOSPITA HOSPITA [address] [place] [address] [facility] LIPASE 5 N N COMMUNTIY COMMUNTIY HOSPITA HOSPITA URNLS DIP 38920 [facility] 5 N N STICK/TAB COMMUNTIY COMMUNTIY LET HOSPITA HOSPITA REAGENT AUTO MICROSCOP Y CULTURE 52284 [facility] BACTERIAL 5 N N COMMUNTIY COMMUNTIY QUANTTATI HOSP[place] [address] [facility] ABDOMEN & 5 N N PELVIS COMMUNTIY COMMUNTIY W/O HOSPITA HOSPITA CONTRAST MATERIAL URINE 71721 [facility] 5 N N TEST COMMUNTIY COMMUNTIY VISUAL HOSPITA HOSPITA COLOR CMPRSN [place] COMPREHEN 77595 [facility] SIVE 5 N N METABOLIC COMMUNTIY [place] [address] [facility] INFUSION 5 N N HYDRATION COMMUNTIY COMMUNTIY EACH HOSPITA HOSPITA ADDITIONA L HOUR BLOOD 27230 [facility] COUNT 5 N N COMPLETE COMMUNTIY COMMUNTIY AUTO&AUTO HOSPITA HOSPITA DIFRNTL WBC COLLECTIO 25477 [facility] N VENOUS 5 N N BLOOD COMMUNTIY COMMUNTIY VENIPUNCT HOSPITA HOSPITA URE THER 01259 [facility] PROPH/DX 5 N N NJX IV COMMUNTIY COMMUNTIY PUSH HOSPITA HOSPITA SINGLE/1S T SBST/DRUG UNCLASSIF [id number] [facility] IED DRUGS 5 [place] [address] [facility] AMYLASE 5 [facility] COMPREHEN 47132 [facility] B[facility] SIVE 5 [facility] [place] [address] [facility] ABDOMEN & 5 [facility] PELVIS IMAGING W/O ASS CONTRAST MATERIAL BLOOD 12294 [facility] COUNT 5 [facility] COMPLETE INC INC AUTO&[place] [address] [facility] LIPASE 5 [facility] INC INC URNLS DIP 67659 [facility] STICK/TAB INC INC LET REAGENT AUTO MICROSCOP Y CULTURE 13350 [facility] BACTERIAL 5 [facility] INC INC QUANTTATI VE COLONY COUNT URINE URINE 52964 [facility] 5 [facility] TEST INC INC [place] [address] [facility] LIPASE 5 [facility] INC INC COMPREHEN 43292 [facility] SIVE 5 [facility] METABOLIC INC INC PANEL BLOOD 25373 [facility] COUNT 5 [facility] COMPLETE INC INC AUTO&AUTO DIFRNTL WBC UNCLASSIF J3490 [facility] IED DRUGS 5 [facility] INC INC COLLECTIO 21652 [facility] N VENOUS 5 [facility] BLOOD INC INC VENIPUNCT URE URNLS DIP 47448 [facility] 5 [facility] STICK/TAB INC INC LET REAGENT AUTO MICROSCOP Y URINE 50689 [facility] TEST INC [place] [address] [facility] ABDOMEN & 5 [facility] PELVIS IMAGING W/O ASS CONTRAST MATERIAL URINE 96254 [facility] 5 [facility] TEST INC INC VISUAL COLOR CMPRSN [place] URNLS DIP 79363 [facility]AM[facility] 5 [facility] STICK/TAB INC INC LET REAGENT AUTO MICROSCOP Y INJECTION J1200 [facility] 50 MG INJECTION J1956 [facility] 5 Y Y LEVOFLOXA [facility] LETY 250 MG INJECTION J2270 [facility] MORPHINE 5 Y Y SULFATE [facility] UP TO 10 MG INJECTION J2270 [facility] MORPHINE 5 Y Y SULFATE [facility] UP TO 10 MG INJECTION J2765 [facility] 5 Y Y METOCLOPR [facility] AMIDE HCL UP TO 10 MG INFUSION J7030 [facility] NORMAL 5 Y Y SALINE [facility] SOLUTION 1000 CC THERAPEUT 53662 [facility] IC 5 Y Y INJECTION [facility] [place] [address] [facility] INFUSION 5 Y Y THERAPY/P [facility] ROPHYLAXI S /DX 1ST TO 1 HR BLOOD 34863 [facility] COUNT 5 Y Y COMPLETE [facility] AUTOMATED COMPREHEN 60842 [facility] SIVE 5 Y Y [facility] PANEL URNLS DIP 27668 [facility] 5 Y Y STICK/TAB [facility] [place] [address] [facility] LIPASE 5 Y Y [facility] THER 67390 [facility] PROPH/DX 5 Y Y NJX EA [facility] SEQL IV PUSH SBST/DRUG FAC URINE 26446 [facility] 5 Y Y TEST [facility] [place] [address] [facility] KOSTEL[facility] ABDOMEN & 5 RADIOLOGY ROBERT PELVIS W/O CONTRAST MATERIAL CULTURE 48228 [facility] BACTERIAL 5 [facility] INC INC QUANTTATI VE COLONY COUNT URINE THROMBOPL 74639 [facility] ASTIN 5 [facility] TIME INC INC PARTIAL PLASMA/[place] B[place] [address] [facility] ABDOMEN & 5 [facility] PELVIS INC [place] [address] [facility] LIPASE 5 [facility] INC INC PROTHROMB 00961 [facility] IN TIME 5 [facility] INC INC URNLS DIP 53447 [facility]USTAMANTE 5 [facility] STICK/TAB INC INC LET REAGENT AUTO MICROSCOP Y COMPREHEN 43935 [facility] B[facility] SIVE 5 [facility] [address] [facility] AMYLASE 5 [facility] INC INC BLOOD 00791 [facility] COUNT 5 [facility] COMPLETE INC INC AUTO&[place] [address] [facility] B[facility] INFUSION 5 [facility] THERAPY/P INC INC ROPHYLAXI S /DX 1ST TO 1 HR UNCLASSIF J3490 [facility] IED DRUGS 5 [facility] INC INC THERAPEUT 54571 [facility] B[facility] IC 5 [facility] INJECTION INC INC IV PUSH EACH NEW DRUG THERAPEUT 67510 [facility] IC 5 N N INJECTION COMMUNTIY COMMUNTIY IV PUSH HOSPITA HOSPITA EACH NEW DRUG LOCM Q9967 [facility] [phone] 5 N N MG/ML COMMUNTIY COMMUNTIY IODINE HOSPITA HOSPITA CONCENTRA TION PER ML BLOOD 50259 [facility] COUNT 5 N N COMPLETE COMMUNTIY COMMUNTIY AUTO&AUTO HOSPITA HOSPITA DIFRNTL WBC COMPREHEN 74032 [facility] SIVE 5 N N METABOLIC COMMUNTIY COMMUNTI[place] [address] [facility] AMYLASE 5 N [place] [address] [facility] ABDOMEN & 5 N N PELVIS COMMUNTIY COMMUNTIY W/CONTRAS HOSPITA HOSPITA T MATERIAL URNLS DIP 61909 [facility] 5 N N STICK/TAB COMMUNTIY COMMUNTIY LET HOSPITA HOSPITA [place] [address] [facility] LIPASE 5 N N COMMUNTIY COMMUNTIY HOSPITA HOSPITA URINE 09080 [facility] 5 N N TEST COMMUNTIY COMMUNTIY VISUAL HOSPITA HOSPITA COLOR CMPRSN [place] CULTURE 07161 [facility] BACTERIAL 5 N N COMMUNTIY COMMUNTIY QUANTTATI HOSPITA HOSPITA VE COLONY COUNT URINE INJECTION J2550 [facility] 5 N N PROMETHAZ COMMUNTIY COMMUNTIY INE HCL HOSPITA HOSPITA UP TO 50 MG INJECTION J2270 [facility] MORPHINE 5 N N SULFATE COMMUNTIY COMMUNTIY UP TO 10 HOSPITA HOSPITA MG CULTURE 34124 [facility] BUSTAMANTE BACTERIAL 5 [facility] INC INC QUANTTATI VE COLONY COUNT URINE URINE 52549 [facility] DIANNA 5 [facility] TEST INC INC [place] [address] [facility] LIPASE 5 [facility] INC INC URNLS DIP 83787 [facility] DIANNA 5 [facility] STICK/TAB INC INC [place] [address] DIANNA DIANNA AMYLASE 5 [facility] INC INC COMPREHEN 47585 [facility] SIVE 5 [facility] METABOLIC INC INC PANEL BLOOD 82789 [facility]UST[facility]TE COUNT 5 [facility] COMPLETE INC INC AUTO&AUTO DIFRNTL WBC UNCLASSIF J3490 [facility] B[facility] IED DRUGS 5 [facility] INC INC UNCLASSIF J3490 [facility] IED DRUGS 5 [facility] INC INC URNLS DIP 12143 [facility] BUSTAMANTE 5 [facility] STICK/TAB INC [place] [address] [facility] BUST[facility]TE ABDOMEN & 5 [facility] PELVIS INC INC W/O CONTRAST MATERIAL URINE 50096 [facility] BUSTAMANTE 5 [facility] TEST INC INC VISUAL COLOR CMPRSN [place] UNCLASSIF J3490 [facility] BUSTAMANTE IED DRUGS 5 [facility] INC INC THERAPEUT 10096 [facility] B[facility] IC 5 [facility] INJECTION INC INC IV PUSH EACH NEW DRUG THER 12925 [facility] PROPH/DX 5 [facility] NJX IV INC INC PUSH SINGLE/1S T SBST/[place] [address] ROBERTA GARZA ABDOMEN & 5 [facility] PELVIS IMAGING W/O ASS CONTRAST MATERIAL RADIOLOGI 66533 ROBERTA GARZA C 5 [facility] EXAMINATI IMAGING ON TIBIA ASS & FIBULA 2 VIEWS Encounters Encounter Start End Date Code Location Performer Type Date OFFICE 80359 A Kaleyn RICK OUTPATIDAVIDA 7 7 JAVIER ROMAN T VISIT PSC 10 MINUTES OFFICE 92783 A Kaelyn MOSS 7 7 JAVIER ROMAN T VISIT PSC 15 MINUTES EMERGENCY 72820 LÁZARO PATE DEPT 7 7 PHYSICIAN VISIT S, [facility] HIGH SEVERITY& THREAT [facility] EMERGENCY 85315 LÁZARO DEAN DEPT 7 7 PHYSICIAN JR VISIT S, [facility] HIGH SEVERITY& THREAT [facility] DIANNA - 7 7 [facility] OUTPATIEN INC T EMERGENCY 07779 DIANNA 7 7 [facility] DEPARTMEN INC T VISIT LOW/MODER SEVERITY EMERGENCY 00443 LÁZARO PATE 7 7 PHYSICIAN DEPARTMEN S, [facility] T VISIT MODERATE SEVERITY HOSPITAL DI[facility]NA - 7 7 [facility] OUTPATIEN INC T EMERGENCY 06216 Jackeline GRAY 7 PHYSICIAN JR DEPARTMEN S, [facility] T VISIT HIGH/URGE NT SEVERITY EMERGENCY 99833 DIANNA 7 7 [facility] DEPARTMEN INC T VISIT LOW/MODER SEVERITY OFFICE 57725 A Kaelyn MOSS 7 7 JAVIER ROMAN T VISIT PSC 25 MINUTES EMERGENCY 53606 DIANNA MAGALLANEST 7 7 [facility] VISIT INC HIGH SEVERITY& TH[facility]AT [facility] - 7 7 [facility] OUTPATIEN INC T EMERGENCY 90624 DANNY STEWART DEPT 7 7 SAMANTHA VISIT EMERGENCY HIGH PHYS SEVERITY& THREAT FUNJ EMERGENCY 49924 LÁZARO WALTON DEPT 7 7 PHYSICIAN U VISIT S, PLLC HIGH SEVERITY& THREAT FUNCJ EMERGENCY 31290 DIANNA 7 7 [facility] DEPARTMEN INC T VISIT LOW/MODER SEVERITY HOSPITAL DIANNA - 7 7 [facility] OUTPATIEN INC T OFFICE 68470 A Kaelyn BUCHANANPATIDAVIDA 7 7 JAVIER ROMAN T VISIT PSC 15 MINUTES OFFICE 76854 DIANNA BUCHANANPATIDAVIDA 7 7 [facility] T VISIT 5 INC MINUTES HOSPITAL DIANNA - 7 7 [facility] OUTPATIEN INC T OFFICE 57006 A Kaelyn MOSS 7 7 JAVIER ROMAN T VISIT PSC 15 MINUTES EMERGENCY 00365 [facility] 7 7 SAMANTHA DEPARTMEN EMERGENCY T VISIT PHYS HIGH/URGE NT SEVERITY HOSPITAL DIANNA - 7 7 [facility] OUTPATIEN INC T EMERGENCY 62008 LÁZARO PATE 7 7 [facility] HIGH/URGE NT SEVERITY EMERGENCY 46092 DIANNA 7 7 [facility] DEPARTMEN INC T VISIT LOW/MODER SEVERITY EMERGENCY 03059 [facility] 7 7 SAMANTHA DEPARTMEN EMERGENCY T VISIT PHYS HIGH/URGE NT SEVERITY EMERGENCY 96243 LÁZARO WALTON DEPT 7 7 PHYSICIAN U VISIT S, PLLC HIGH SEVERITY& THREAT FUNCJ EMERGENCY 74140 LÁZARO PATE 7 7 [facility] H[facility]/URGE NT SEVERITY HOSPITAL [facility] - 6 6 N OUTPATIEN COMMUNTIY T HOSPITA EMERGENCY 98608 [facility] 6 6 SAMANTHA DEPARTMEN EMERGENCY T VISIT PHYS HIGH/URGE NT SEVERITY EMERGENCY 68820 [facility] 6 6 N DEPARTMEN COMMUNTIY T VISIT HOSPITA MODERATE SEVERITY EMERGENCY 74378 [facility] 6 6 SAM[facility]A VISIT EMERGENCY HIGH SERV SEVERITY& THREAT [facility] EMERGENCY 68128 LÁZARO WALTON 6 6 PHYSICIAN U DEPARTMEN S, PLLC T VISIT HIGH/URGE NT SEVERITY HOSPITAL DIANNA - 6 6 [facility] OUTPATIEN INC T EMERGENCY 20226 DIANNA 6 6 [facility] DEPARTMEN INC T VISIT LIMITED/M INOR PROB EMERGENCY 81598 [facility] DIANNA DEPT 6 6 SAMANTHA SCO VISIT EMERGENCY HIGH PHYS SEVERITY& THREAT FUNCJ OFFICE 76406 A C NEELAM LUCAS OUTPATIEN 6 6 JAVIER ROMAN T VISIT PSC 15 MINUTES EMERGENCY 05946 LÁZARO WALTON DEPT 6 6 PHYSICIAN Valery KENNEDY VISIT S, PLLC HIGH SEVERITY& THREAT FUNCJ OFFICE 84909 A C MERLINE OUTPATIEN 6 6 [facility]IER [facility] T VISIT PSC 15 MINUTES OFFICE 26403 A C [facility] OUTPATIEN 6 6 [facility] T VISIT PSC 15 MINUTES HOSPITAL DIANNA - 6 6 [facility] OUTPATIEN INC T OFFICE 06905 A C [facility]LINE OUTPATIEN 6 6 J[facility]IER [facility] T VISIT PSC 15 MINUTES OFFICE 37098 A C CONNIE OUTPATIEN 6 6 JAVIER LOGAN T VISIT PSC 15 MINUTES OFFICE 50854 A C [facility] OUTPATIEN 6 6 [facility] T VISIT PSC 15 MINUTES HOSPITAL DIANNA - 6 6 [facility] OUTPATIEN INC T OFFICE 00903 A C RICK OUTPATIEN 6 6 J[facility]IER [facility]I T VISIT PSC 15 MINUTES OFFICE 52611 A C MERLINE OUTPATIEN 6 6 J[facility]IER [facility]I T VISIT PSC 15 MINUTES OFFICE 14617 A C [facility] OUTPATIEN 6 6 JAVIER [facility] T VISIT PSC 15 MINUTES EMERGENCY 53383 LÁZARO PATE 6 6 [facility] HIGH/URGE NT SEVERITY [facility]OSP[facility] - 6 6 [facility] OUTPATIEN INC T OFFICE 85342 A C CONNIE OUTPATIEN 6 6 JAVIER LOGAN T VISIT PSC 25 MINUTES HOSPITAL DIANNA - 6 6 [facility] OUTPATIEN INC T OFFICE 80768 A C MERLINE OUTPATIEN 6 6 JAVIER [facility]I T VISIT PSC 15 MINUTES EMERGENCY 87644 [facility] JAM 6 6 SAMANTHA DEPARTMEN EMERGENCY T VISIT PHYS HIGH/URGE NT SEVERITY EMERGENCY 69405 JOCY BRASHER QUENTIN 6 6 MEDICAL DEPARTMEN SERV T VISIT FOUNDATIO MODERATE N SEVERITY OFFICE 13151 A Kaelyn RICK OUTPATIEN 6 6 JAVIER [facility] T NEW 30 PSC MINUTES EMERGENCY 00769 JOCY TAM 6 6 MEDICAL MAT DEPARTMEN SERV T VISIT FOUNDATIO HIGH/URGE N NT SEVERITY EMERGENCY 73197 [facility] 6 6 SAMANTHA DEPARTMEN EMERGENCY T VISIT PHYS HIGH/URGE NT SEVERITY EMERGENCY 74176 LÁZARO PATE DEPT 6 6 PHYSICIAN LYNDA VISIT S, [facility] HIGH SEVERITY& THREAT [facility] DIANNA - 6 6 [facility] OUTPATIEN INC T EMERGENCY 10642 DIANNA 6 6 [facility] DEPARTMEN INC T VISIT HIGH/URGE NT SEVERITY EMERGENCY 75456 LÁZARO WALTON 6 6 PHYSICIAN U MARCIA [facility] T VISIT MODERATE SEVERITY EMERGENCY 11914 [facility] SCO 6 6 SAMANTHA DEPARTMEN EMERGENCY T VISIT SERV HIGH/URGE NT SEVERITY EMERGENCY 91758 LÁZARO PATE 6 6 PHYSICIAN LYNDA DEPARTMEN S, [facility] T VISIT HIGH/URGE NT SEVERITY EMERGENCY 69374 LÁZARO WALTON 6 6 PHYSICIAN U MARCIA [facility] S, [facility] T VISIT MODERATE SEVERITY EMERGENCY 50293 LÁZARO PATE [address] [facility] T VISIT HIGH/URGE NT SEVERITY EMERGENCY 40924 LÁZARO HOWELL 6 6 PHYSICIAN [facility] T VISIT HIGH/URGE NT SEVERITY EMERGENCY 82433 DANNY ROYAL 6 6 SAM[facility]THA [facility] EMERGENCY T VISIT PHYS HIGH/URGE NT SEVERITY EMERGENCY 82277 LÁZARO CHACON DEPT 6 6 PHYSICIAN [facility] HIGH SEVERITY& THREAT FUNCJ EMERGENCY 54997 LÁZARO PATE 6 6 PHYSICIAN [facility] T VISIT HIGH/URGE NT SEVERITY EMERGENCY 97083 DANNY MCDANIELOSTER 6 6 SAMANTHA [facility] EMERGENCY T VISIT PHYS HIGH/URGE NT SEVERITY EMERGENCY 43574 LÁZARO LYNNE 6 6 PHYSICIAN [facility] T VISIT HIGH/URGE NT SEVERITY EMERGENCY 29256 DIANNA 6 6 [facility] DEPARTMEN INC T VISIT MODERATE SEVERITY HOSPITAL DIANNA - 6 6 [facility] OUTPATIEN INC T EMERGENCY 04116 [facility] 6 6 N [facility] COMMUNTIY T VISIT HOSPITA HIGH/URGE NT SEVERITY EMERGENCY 19196 [facility] ILANA DEPT 6 6 SAMANTHA MON VISIT EMERGENCY HIGH PHYS SEVERITY& THREAT [facility] - 6 6 N OUTPATIEN COMMUNTIY T HOSPITA EMERGENCY 41420 [facility] 5 5 N [facility] COMMUNTIY T VISIT HOSPITA HIGH/URGE NT SEVERITY EMERGENCY 83328 [facility] ROSALES BHAKTA DEPT 5 5 SAMANTHA VISIT EMERGENCY HIGH SERV SEVERITY& THREAT [facility] [place] - 5 5 N OUTPATIEN COMMUNTIY T HOSPITA EMERGENCY 60556 LÁZARO PATE DEPT 5 5 PHYSICIAN LYNDA VISIT S, PLLC HIGH SEVERITY& THREAT [facility] DI[facility] - 5 5 [facility] OUTPATIEN INC T EMERGENCY 88444 DIANNA 5 5 [facility] DEPARTMEN INC T VISIT LOW/MODER SEVERITY HOSPITAL [facility] - 5 5 N OUTPATIEN COMMUNTIY T HOSPITA EMERGENCY 85303 [facility] DEPT 5 5 SAMANTHA JERILYN VISIT EMERGENCY HIGH PHYS SEVERITY& THREAT [facility] EMERGENCY 54445 LÁZARO OROZCO 5 5 PHYSICIAN BUTTS [facility]PARTMEN [facility], [facility] T VISIT MODERATE SEVERITY EMERGENCY 65403 LÁZARO PATE 5 5 PHYSICIAN LYNDA [facility]PARTMEN [facility], [facility] T VISIT HIGH/URGE NT SEVERITY EMERGENCY 12170 DIANNA 5 5 [facility] DEPARTMEN INC T VISIT LOW/MODER SEVERITY HOSPITAL DI[facility] - 5 5 [facility] OUTPATIEN INC T [facility]OSPITAL DIANNA - 5 5 [facility] OUTPATIEN INC T EMERGENCY 40079 DIANNA 5 5 [facility] DEPARTMEN INC T VISIT LOW/MODER SEVERITY EMERGENCY 35153 LÁZARO WALTON 5 5 PHYSICIAN U MARCIA [facility], [facility] T VISIT MODERATE SEVERITY EMERGENCY 79682 [facility] CELLAROSI DEPT 5 5 SAMANTHA - YORBA VISIT EMERGENCY PAT HIGH PHYS SEVERITY& THREAT [facility] EMERGENCY 31474 [facility] 5 5 N DEPARTMEN COMMUNTIY T VISIT HOSPITA HIGH/URGE NT SEVERITY HOSPITAL [facility] - 5 5 N OUTPATIEN COMMUNTIY T HOSPITA EMERGENCY 41029 [facility] 5 5 N DEPARTMEN COMMUNTIY T VISIT HOSPITA HIGH/URGE NT SEVERITY EMERGENCY 21498 [facility] DEPT 5 5 SAMANTHA JERILYN VISIT EMERGENCY HIGH PHYS SEVERITY& THREAT [facility] - 5 5 N OUTPATIEN COMMUNTIY T HOSPITA EMERGENCY 02005 [facility] 5 5 [facility] V[facility]/M INOR PROB EMERGENCY 05816 LÁZARO TELLES 5 5 PHYSICIAN DEPARTMEN S, [facility] T VISIT MODERATE SEVERITY HOSPITAL DIANNA - 5 5 [facility] HOSP[facility] DIANNA [facility] 5 5 [facility] OUTPATIEN [facility] T EMERGENCY 82288 DIANNA 5 5 [facility] T VISIT LOW/MODER SEVERITY EMERGENCY 38578 LÁZARO PATE DEPT 5 5 PHYSICIAN LYNDA [facility] HIGH SEVERITY& THREAT [facility] EMERGENCY 19207 [facility]NA 5 5 [facility] T VISIT MODERATE SEVERITY EMERGENCY 98396 LÁZARO OLVERA 5 5 PHYSICIAN DEPARTMEN S, [facility] T VISIT HIGH/URGE NT SEVERITY HOSPITAL DIANNA - 5 5 [facility] T EMERGENCY 98846 LÁZARO PATE 5 5 PHYSICIAN LYNDA DEPARTMEN S, [facility] T VISIT HIGH/URGE NT SEVERITY EMERGENCY 08680 [facility]NA 5 5 [facility] T VISIT LOW/MODER SEVERITY HOSPITAL DIANNA - 5 5 [facility] OUTPATIEN [facility] T HOSPITAL UNIVERSIT - 5 5 [facility] 02184 UN[facility] 5 5 Y [facility] T VISIT HIGH/URGE NT SEVERITY EMERGENCY 38741 [facility] 5 5 [facility] T VISIT PHYS HIGH/URGE NT SEVERITY EMERGENCY 71735 [facility]NA 5 5 [facility] T VISIT HIGH/URGE NT SEVERITY EMERGENCY 36175 LÁZARO WALTON DEPT 5 5 PHYSICIAN U MARCIA VISIT S, PLLC HIGH SEVERITY& THREAT [facility] - 5 5 [facility] OUTPATIEN INC T EMERGENCY 31134 [facility] 5 5 N DEPARTMEN COMMUNTIY T VISIT HOSPITA HIGH/URGE NT SEVERITY HOSPITAL [facility] - 5 5 N OUTPATIEN COMMUNTIY T HOSPITA EMERGENCY 43152 [facility] DEPT 5 5 SAMANTHA COREY VISIT EMERGENCY HIGH PHYS SEVERITY& THREAT FUNJ EMERGENCY 52399 DIANNA 5 5 [facility] T VISIT LOW/MODER SEVERITY EMERGENCY 63454 LÁZARO PATE 5 5 PHYSICIAN [facility] S, [facility] T [facility] HIGH/URGE NT SEVERITY [facility] DI[facility] - 5 5 [facility] OUTPATIEN INC T HOSPITAL DIANNA Meza 5 [facility] OUTPATIEN INC T EMERGENCY 90896 DIANNA PATE 5 5 [facility] T VISIT P MODERATE SEVERITY EMERGENCY 82034 DIANNA 5 5 [facility] T VISIT LOW/MODER SEVERITY EMERGENCY 89735 DIANNA ARBOLEDA 5 5 [facility] T VISIT P LOW/MODER SEVERITY EMERGENCY 59342 [facility]NA 5 5 [facility] T VISIT HIGH/URGE NT SEVERITY HOSPITAL DIANNA - 5 5 [facility] OUTPATIEN INC T EMERGENCY 40523 DIANNA DEAN, 5 5 [facility] T VISIT P MODERATE SEVERITY HOSPITAL DIANNA - 5 5 [facility] OUTPATIEN INC T EMERGENCY 75854 [facility]NA 5 5 [facility] T VISIT LOW/MODER SEVERITY
--- OUTSIDE RECORDS SUMMARY | 2017-03-25 13:33 | External Medical Summary Rpt | CCD ---
Author Author , ROBERTO Organization ROBERTO Address Unknown Phone Care Team Providers Care Principal Strategist Name Role Phone A Kaelyn HERRERA MD PSC, Lynn Unavailable Unavailable Kaelyn HERRERA MD PSC LELE MIRANDA Unavailable Unavailable KAEL SOSA MAY, SHEILA MAY Unavailable Unavailable BEINEKE, BEINEKE Unavailable Unavailable BEINEKE MARCIA, BEINEKE Unavailable Unavailable MARCIA FAUSTINO JAM, FAUSTINO JAM Unavailable Unavailable CONNORS, CONNORS Unavailable Unavailable CONNORS ALL, CONNORS ALL Unavailable Unavailable ILANA MON, Unavailable Unavailable ILANA MON [facility] Unavailable Unavailable SERVICE, [facility] HARRINGTON, HARRINGTON Unavailable Unavailable HARRINGTON [...] Unavailable Unavailable ARTI GEILE, GEILE Unavailable Unavailable [facility] Un[facility] Unavailable [facility], [facility] YULI RHO, YULI Unavailable Unavailable RHO GUNDUMALLA GOP, Unavailable Unavailable GUNDUMALLA GOP DIANNA SCO, Unavailable Unavailable DIANNA SCO [facility] Unavailable Unavailable INC, [facility] Unavailable [facility]available HOSPITAL P, [facility]ITAL P FELTON KOKI, FELTON KOKI Unavailable Unavailable [facility] KISHA, Unavailable Unavailable [facility] Unavailable Unavailable [facility], [facility] KILPELA, KILPELA Unavailable Unavailable [...] SHAYY Unavailable Unavailable OZOR, OZOR Unavailable Unavailable [facility], Unavailable Unavailable PLLC, [facility] [...] SOTINGEANU SOTINGEANU MARCIA, Unavailable Unavailable SOTINGEANU MARCIA [facility] Unavailable Unavailable EMERGENCY PHYS, [facility] Unavailable Unavailable EMERGENCY SERV, [facility] Unavailable Unavailable PHYSICIAN SERVI, [facility] PH[facility]ICIAN [facility] TOLU MOTLEY Unavailable Unavailable [facility], Unavailable Unavailable [facility] WALKER FOR, WALKER Unavailable Unavailable [...] SITE NOT SPECIFIED N200 CALCULUS OF 01-26-2017 [facility] N3090 CYSTITIS 01-26-2017 [facility] UNSPECIFIED [facility], WITHOUT PLLC HEMATURIA M5442 LUMBAGO 01-08-2017 ANNELIESE WITH HOME SCIATICA MEDICAL LEFT SIDE EQUIPME [id number] STRAIN 01-08-2017 ANNELIESE MUSCLE HOME FASCIA & MEDICAL TENDON LOW EQUIPME BACK INITIAL I10 ESSENTIAL 12-22-2016 [facility] HYPERTENSIO INC N M545 LOW BACK 12-22-2016 [facility] Z720 TOBACCO USE 12-22-2016 [facility] INC N1330 UNSPECIFIED 11-01-2016 [facility] HYDRONEPHRO INC SIS N23 UNSPECIFIED 11-01-2016 [facility]NAL [facility], COLIC PLLC R112 NAUSEA WITH 10-26-2016 LAB [facility] VOMITING ROSY UNSPECIFIED HOLDINGS K921 MELENA 10-25-2016 A Kaelyn HERRERA MD PSC D21405 UNSPECIFIED 10-25-2016 Lynn HERRERA OVARIAN PSC CYST UNSPECIFIED SIDE N83.209 UNSPECIFIED 10-23-2016 OVARIAN CYST, UNSPECIFIED SIDE R10.31 RIGHT LOWER 10-23-2016 [facility] PAIN R11.0 NAUSEA 10-23-2016 R19.7 DIARRHEA, 10-23-2016 UNSPECIFIED Z87.440 PERSONAL 10-23-2016 HISTORY OF URINARY (TRACT) INFECTIONS Z88.0 ALLERGY 10-23-2016 STATUS TO PENICILLIN Z88.2 ALLERGY 10-23-2016 STATUS TO SULFONAMIDE S STATUS Z88.5 ALLERGY 10-23-2016 STATUS TO NARCOTIC AGENT STATUS F33082 UNSPECIFIED 10-22-2016 A Kaelyn HERRERA OVARIAN PSC CYST RIGHT SIDE R1031 RIGHT LOWER 10-22-2016 A Kaelyn HERRERA [facility] PSC PAIN E785 HYPERLIPIDE 10-21-2016 [facility] UNSPECIFIED INC O42896 PERSONAL 10-21-2016 [facility] HISTORY OF [facility] URINARY INC TRACT INFECTIONS H88590 PERSONAL 10-21-2016 [facility] URINARY INC CALCULI L50.9 URTICARIA, 09-18-2016 UNSPECIFIED N30.00 ACUTE 09-18-2016 CYSTITIS WITHOUT HEMATURIA R10.32 LEFT LOWER 09-18-2016 [facility] PAIN Z72.0 TOBACCO USE 09-18-2016 D23602 ELEVATED 09-18-2016 A Kaelyn HERRERA WHITE BLOOD [...] OTHER PHYSICIANS, NONSPECIFIC PLLC SKIN ERUPTION Z791 PRISON 09-08-2016 [facility] CURR [facility] NON-STEROID INC AL&ANTI-INF LAMMATORIES D83559 OTHER LONG 09-08-2016 [facility] TERM [facility] CURRENT INC DRUG THERAPY Z888 ALLERGY 09-08-2016 [facility] STATUS OTH [facility] RX MEDS & INC BIOLOG SUBSTANC STS M54.9 DORSALGIA, 08-20-2016 UNSPECIFIED R31.9 HEMATURIA, 08-20-2016 UNSPECIFIED R1032 LEFT LOWER 08-10-2016 [place] [facility] B86 SCABIES 07-04-2016 [facility] R030 ELEVATED 06-03-2016 [facility] BLOOD-PRESS N EMERGENCY URE READING SERV [...] VOMITING 02-21-2016 A Kaelyn HERRERA UNSPECIFIED PSC T71887 OTHER 02-14-2016 A Kaelyn HERRERA INSTABILITY PSC LEFT ANKLE N36488 PAIN IN 02-14-2016 A Kaelyn HERRERA LEFT KNEE MD PSC P45833 PAIN IN 02-09-2016 A Kaelyn HERRERA RIGHT LEG PSC K97617 PAIN IN 02-09-2016 A Kaelyn HERRERA LEFT LEG PSC Z29213 EFFUSION 02-07-2016 [facility] I59412 PAIN IN 02-07-2016 [facility] M7989 OTHER 02-07-2016 [facility] SPECIFIED MEDICAL SOFT TISSUE IMAGING ASS DISORDERS G8929 OTHER 01-26-2016 A Kaelyn HERRERA CHRONIC [facility] PAIN N289 DISORDER OF 01-09-2016 [facility] UNSPECIFIED R000 TACHYCARDIA 01-09-2016 [facility] SERV UNSPECIFIED FOUNDATION N209 URINARY 12-31-2015 [facility] CALCULUS [facility]IANS, UNSPECIFIED PLLC V99854 PAIN IN 11-10-2015 [facility] W04489G SPRAIN 11-10-2015 [facility] UNSPEC PHYSICIANS, [facility] RIGHT ANKLE INITIAL ENC K12940Y UNSPECIFIED 11-10-2015 [facility] INJURY [facility]ICAL RIGHT ANKLE IMAGING ASS INITIAL ENCOUNTER R319 HEMATURIA 10-07-2015 [facility] UNSPECIFIED [facility]ICIANS, PLLC N8320 UNSPECIFIED 08-05-2015 [facility]IAN N EMERGENCY CYSTS PHYS N8329 OTHER 08-05-2015 [facility] [place] O[facility] RADIOLOGY CYSTS R1030 LOWER 08-04-2015 [facility] ABDOMINAL PHYSICIANS, PAIN PLLC UNSPECIFIED M549 DORSALGIA 06-26-2015 [facility] UNSPECIFIED [facility]YSICIANS, PLLC Z960 PRESENCE OF 06-16-2015 [facility] IMPLANTS HOSPITA N201 CALCULUS OF 05-20-2015 [facility], PLLC E669 OBESITY 05-17-2015 [facility] UNSPECIFIED N PHYSICIAN SERVI N132 HYDRONEPHRO 05-17-2015 [facility] SIS W/RENAL N PHYSICIAN & URETRL SERVI CALCULOUS OBST R6510 SYS INFLM 05-17-2015 [facility] RSPN SYND N PHYSICIAN NON-INF SERVI ORIG NO AC ORGN DYSF Z6841 BODY MASS 05-16-2015 [facility] INDEX BMI COMMUNTIY 40.0-44.9 HOSPITA ADULT J208 ACUTE 04-28-2015 [facility] BRONCHITIS PHYSICIANS, DUE TO PLLC OTHER SPEC ORGANISMS K859 ACUTE 04-05-2015 [facility] PANCREATITI N EMERGENCY S PHYS UNSPECIFIED R9431 ABNORMAL 04-05-2015 [facility] ELECTROCARD COMMUNTIY IOGRAM HOSPITA 5920 CALCULUS OF 02-26-2015 [facility] [place] [facility] RADIOLOG[facility] 5990 URINARY 02-26-2015 [facility] TRACT N EMERGENCY INFECTION PHYS SITE NOT SPECIFIED 04140 NAUSEA 02-26-2015 [facility] ALONE COMMUNTIY HOSPITA 42315 DIARRHEA 02-26-2015 [facility]99 ABDOMINAL 02-26-2015 [facility] PAIN RIGHT N EMERGENCY LOWER PHYS QUADRANT V1301 PERSONAL 02-26-2015 [facility] URINARY HOSPITA CALCULI V1582 PERS HX 02-26-2015 [facility] TOBACCO USE COMMUNTIY PRESENTING HOSPITA [facility] 4019 UNSPECIFIED 02-19-2015 [facility] ESSENTIAL [facility] HYPERTENSIO INC N 5275 SIALOLITHIA 02-19-2015 [facility] SIS PHYSICIANS, [facility] 6202 OTHER AND 02-14-2015 [facility] UNSPECIFIED PHYSICIANS, OVARIAN PLLC CYST 06679 ABDOMINAL 12-11-2014 [place] PAIN OTHER MEDICAL SPECIFIED IMAGING ASS SITE 76726 ABDOMINAL 12-10-2014 [facility] PAIN, LEFT [facility] LOWER INC QUADRANT 0419 BACTERIAL 11-26-2014 [place] [facility] INFECTION SERV UNSPECIFIED FOUNDATION CCE & UNS SITE 03359 UNSPECIFIED 11-26-2014 [facility] PYELONEPHRI TIS V4579 OTHER 11-26-2014 [facility] ABSENCE OF ORGAN 48384 ABDOMINAL 11-21-2014 [facility] [place] PAIN, RADIOLOGY UNSPECIFIED SITE 08555 ABDOMINAL 11-20-2014 [facility] PA[facility], N EMERGENCY PERIUMBILIC PHYS 61093 ABDOMINAL 11-16-2014 [place] PAIN, MEDICAL EPIGASTRIC IMAGING ASS 65758 NAUSEA WITH 11-14-2014 [facility] VOMITING COMMUNTIY HOSPITA 5589 OTH&UNSPEC 10-31-2014 [facility] NONINFECTIO PHYSICIANS, US PLLC GASTROENTER ITIS&COLITI S 7242 LUMBAGO 10-19-2014 [facility] P 03291 ABDOMINAL 10-19-2014 [place] PAIN, LEFT [facility] P QUADRANT 5921 CALCULUS OF 10-01-2014 [facility] 7295 PAIN IN 10-01-2014 [facility] SOFT MEDICAL TISSUES OF IMAGING ASS LIMB 8449 SPRAIN&STRA 10-01-2014 [place] [facility] IN OF [facility] UNSPECIFIED INC SITE [...] NT E HI AN A IN C TN 65 09 10 24 6 00 EA [...] 5 14 PH CE AR TA MA MT CY NO PH OF EN CY NT [...] 5 68 PH CE AR TA MA MT CY NO PH OF EN CY NT [...] 5 89 PH CE AR TA MA MT CY NO PH OF EN CY NT [...] HI ET AN A IN C MT 00 07 08 30 30 00 EA [...] 5 33 PH CE AR TA MA MT CY NO PH OF EN CY NT [...] 05 06 20 10 00 EA Ac TN 71 -1 -[address] ti [...] 48 DE ZA 11 17 17 23 TN 0 48 PH IN AR E MA 10 CY MG OF CY TA NT BL HI ET AN A IN C TN 65 04 04 60 30 00 EA [...] HI 0 AN MG A IN C TN 59 04 04 10 5 00 EA [...] 12 01 14 7 00 EA Ac TN 71 -3 -[address] ti [...] 47 DE RA 30 16 17 07 MT 5 45 PH DE AR MA 10 [...] blood 00:30 platele t mean volume jaspreet Pinal % = 7.1 % 1.7-9.3 complet 017 [...] SQUARE METERS Comment: If this patient is -Yemeni, then multiply the Comment: result by 1.210. [...] Procedure DOS Code Location Performer Comment URINLS 48377 A C KILPELA DIP 7 JAVIER ROMAN STICK/TAB PSC LET REAGNT NON-AUTO MICRSCPY RADEX 20478 [facility] KAYLA ABDOMEN 1 7 MEDICAL IMAGING ANTEROPOS ASS TERIOR VIEW LUMB L0627 ANNELIESE VALLESRELL ORTHOSIS 7 HOME HOME SAGIT MEDICAL MEDICAL CNTRL EQUIPME EQUIPME RIGID A&P PANEL PREFAB UNCLASSIF J3490 [facility] BUSTAMANTE IED DRUGS 7 [facility] INC INC RADEX 20548 ROBERTA SOSAINEKE SPINE 7 MEDICAL LUMBOSACR IMAGING AL ASS MINIMUM 4 VIEWS URINE 54721 [facility] BUSTAMANTE 7 [facility] TEST INC INC VISUAL COLOR CMPRSN METHS URINE 90409 [facility] BUSTAMANTE 7 [facility] TEST INC INC VISUAL COLOR CMPRSN METHS CULTURE 51864 [facility] BUSTAM[facility]TE BACTERIAL 7 [facility] INC INC QUANTTATI VE COLONY COUNT URINE URNLS DIP 80344 [facility] BUSTAMANTE 7 [facility] STICK/TAB INC INC LET REAGENT AUTO MICROSCOP Y BLOOD 32512 [facility] COUNT 7 [facility] COMPLETE INC INC AUTO&AUTO DIFRNTL WBC COLLECTIO 30276 [facility] BUSTAM[facility] N VENOUS 7 [facility] BLOOD INC INC VENIPUNCT URE COMPREHEN 41233 [facility]AM[facility] SIVE 7 [facility] H[facility] METABOLIC INC INC PANEL CULTURE 24789 [facility] LAB JANNA BACTERIAL 7 ROSY ROSY [facility] HOLDINGS QUANTTATI VE COLONY COUNT URINE URINLS 26192 A Kaelyn ROSALES DIP 7 JAVIER ROMAN STICK/TAB PSC LET REAGNT NON-AUTO MICRSCPY OBSERVATI 27731 A Kaelyn RICHTER ON CARE 7 JAVIER ROMAN DISCHARGE PSC MANAGEMEN T BLOOD 17240 [facility] COUNT 7 [facility] COMPLETE INC INC AUTO&AUTO DIFRNTL WBC UNCLASSIF J3490 [facility] BUSTAM[facility] IED DRUGS 7 [facility] INC INC UNCLASSIF J3490 [facility] BUSTAMANTE IED DRUGS 7 [facility] INC INC HOSPITAL G0378 [facility] BUSTAM[facility]TE OBSERVATI 7 [facility] ON INC INC SERVICE PER HOUR INITIAL 17288 A Kaelyn RICHTER OBSERVATI 7 JAVIER ROMAN ON PSC CARE/DAY 70 MINUTES BLOOD 94337 [facility]UST[facility] COUNT 7 [facility] COMPLETE INC INC AUTO&AUTO DIFRNTL WBC BASIC 01695 [facility] METABOLIC 7 [facility] PANEL INC INC CALCIUM TOTAL CULTURE 72585 [facility] BUSTAM[facility]TE BACTERIAL 7 MEM H[facility] INC INC QUANTTATI VE COLONY COUNT URINE URNLS DIP 30003 [facility] BUSTAMANTE 7 [facility] STICK/TAB INC INC LET REAGENT AUTO MICROSCOP Y COMPREHEN 71956 [facility] BUSTAMANTE SIVE 7 [facility] METABOLIC INC INC PANEL BLOOD 67551 [facility] BUSTAM[facility]TE COUNT 7 [facility] COMPLETE INC INC AUTO&AUTO DIFRNTL WBC HOSPITAL G0378 [facility] BUST[facility] OBSERVATI 7 [facility] ON INC INC SERVICE PER HOUR UNCLASSIF J3490 [facility] IED DRUGS 7 [place] [address] [facility] INFUSION 7 [facility] THERAPY/P INC INC ROPHYLAXI S /DX 1ST TO 1 HR THERAPEUT 73184 [facility] IC 7 [facility] INJECTION INC INC IV PUSH EACH NEW DRUG GROUND A0425 [facility] MILEA 7 AMBULANCE AMBULANCE PER SERVICE SERVICE STATUTE MILE AMBULANCE A0429 [facility] SERVICE 7 AMBULANCE AMBULANCE BLS [place] [address] [facility] [place] ABDOMEN & 7 RADIOLOGY PELVIS W/CONTRAS T MATERIAL URNLS DIP 35255 [facility] BUSTAMANTE 7 [facility] STICK/TAB INC INC [place] [address] [facility] LIPASE 7 [facility] INC INC CULTURE 32948 [facility] BACTERIAL 7 [facility] [place] [address] [facility] B[facility] ABDOMEN & 7 [facility] PELVIS INC INC W/O CONTRAST MATERIAL URINE 93427 [facility] BUSTAMANTE 7 [facility] TEST INC INC VISUAL COLOR CMPRSN METHS THERAPEUT 71942 DI[facility] BUSTAMANTE IC 7 [facility] PROPHYLAC INC INC TIC/DX INJECTION SUBQ/IM UNCLASSIF J3490 [facility] BUSTAM[facility]TE IED DRUGS 7 MEM [facility] INC INC BLOOD 12382 DI[facility] BUSTAM[facility]TE COUNT 7 [facility] COMPLETE INC INC AUTO&AUTO DIFRNTL WBC COLLECTIO 92641 [facility] BUSTAM[facility]TE N VENOUS 7 [facility] BLOOD INC INC VENIPUNCT URE COMPREHEN 08023 [facility] B[facility] SIVE 7 [facility] [address] [facility]UST[facility] AMYLASE 7 [facility] INC INC URINLS 89320 A C RICK DIP 7 JAVIER ROMAN STICK/TAB PSC LET REAGNT NON-AUTO MICRSCPY UNCLASSIF J3490 [facility]UST[facility] IED DRUGS 7 [facility] INC INC COLLECTIO 21656 A C MERLINE N VENOUS 7 JAVIER ROMAN BLOOD PSC VENIPUNCT URE BLOOD 79681 A C MERLINE COUNT 7 JAVIER ROMAN COMPLETE PSC AUTO&AUTO DIFRNTL WBC URINLS 47318 A C MERLINE DIP 7 JAVIER ROMAN STICK/TAB [place] [address] [facility] ABDOMEN & 7 RADIOLOGY PELVIS W/O CONTRAST MATERIAL URNLS DIP 76982 [facility] BUSTAMANTE 7 [facility] STICK/TAB INC INC LET REAGENT AUTO MICROSCOP Y CULTURE 63112 [facility] BACTERIAL 7 [facility] INC INC QUANTTATI VE COLONY COUNT URINE UNCLASSIF J3490 [facility] BUSTAM[facility]TE IED DRUGS 7 [place] [address] [facility] ABDOMEN & 7 MEDICAL PELVIS IMAGING W/O ASS CONTRAST MATERIAL URNLS DIP 47946 [facility] 6 N N STICK/TAB COMMUNTIY COMMUNTIY LET HOSPITA HOSPITA REAGENT AUTO MICROSCOP Y CULTURE 67774 [facility] BACTERIAL 6 N N COMMUNTIY COMMUNTIY QUANTTATI HOSPITA HOSPITA VE COLONY COUNT URINE THERAPEUT 58130 [facility] IC 6 N N PROPHYLAC COMMUNTIY COMMUNTIY TIC/DX HOSPITA HOSPITA INJECTION SUBQ/IM ECG 67951 [facility] ROUTINE 6 SAMANTHA ECG EMERGENCY W/LEAST SERV 12 LDS I&R ONLY RADIOLOGI 07361 [facility] [place] FIDENCIO C 6 RADIOLOGY EXAMINATI ON CHEST SINGLE VIEW FRONTAL URINE 10695 [facility] BUSTAMANTE 6 [facility] TEST INC INC VISUAL COLOR CMPRSN METHS CULTURE 76835 [facility] BUSTAMANTE BACTERIAL 6 [facility] INC INC QUANTTATI VE COLONY COUNT URINE URNLS DIP 53015 [facility] BUSTAMANTE 6 [facility] STICK/TAB INC INC LET REAGENT AUTO MICROSCOP Y UNCLASSIF J3490 [facility] BUSTAMANTE IED DRUGS 6 [facility] [place] [address] [facility] [place] ABDOMEN & 6 RADIOLOGY III KISHA PELVIS W/O CONTRAST MATERIAL OBSERVATI 21417 A Kaelyn RICHTER SHAYY ON/INPATI 6 JAVIER ROMAN ENT [facility] HOSPITAL C[place] [address] [place] [address] [place] [facility] ABDOMEN & 6 MEDICAL [place] PELVIS IMAGING W/O ASS CONTRST 1/> BODY RE URINLS 70536 A C MERLINE DIP 6 JAVIER [facility]I STICK/TAB PSC LET REAGNT NON-AUTO MICRSCPY THERAPEUT 85359 A Kaelyn RICK IC 6 J[facility]IER [facility] PROPHYLAC PSC TIC/DX INJECTION SUBQ/IM INJECTION J2550 A Kaelyn RICK 6 JAVIER [facility]I PROMETHAZ PSC INE HCL UP TO 50 MG COLLECTIO 76814 [facility] BUSTAMANTE N VENOUS 6 [facility] [place] [address] [facility] BUSTAM[facility] AMYLASE 6 MEM H[facility] INC INC COMPREHEN 49146 [facility] BUSTAMANTE SIVE 6 [facility] [place] [address] DI[facility] BUSTAM[facility] LIPASE 6 [facility]OS[facility] INC INC BLOOD 32393 [facility] BUSTAMANTE COUNT 6 [facility] COMPLETE INC INC AUTO&AUTO DIFRNTL WBC URINLS 42331 A C MERLINE DIP 6 JAVIER CHI STICK/TAB PSC LET REAGNT NON-AUTO MICRSCPY [place] ANY 98899 [place] CONNORS ALL JT LOWER 6 MEDICAL EXTREM IMAGING [place] [address] DI[facility] BUSTAMANTE RETROPERI 6 [facility] TONEAL INC INC [place] W/[place] [address] ROBERTA CONNORS ALL RETROPERI 6 MEDICAL TONEAL IMAGING REAL TIME ASS W/IMAGE LIMITED THERAPEUT 69132 A Kaelyn RICK IC 6 JAVIER CHI PROPHYLAC PSC TIC/DX INJECTION SUBQ/IM URINLS 45118 A C MERLINE DIP 6 JAVIER [facility]I STICK/TAB PSC LET REAGNT NON-AUTO MICRSCPY BLOOD 01185 A C RICK COUNT 6 JAVIER [facility] COMPLETE PSC AUTO&AUTO DIFRNTL WBC INJECTION J0696 A C RICK 6 JAVIER CHI CEFTRIAXO PSC NE SODIUM PER 250 MG BLOOD 35198 A C IRCK COUNT 6 JAVIER [facility]I COMPLETE PSC AUTO&AUTO DIFRNTL WBC INJECTION J0696 A C RICK 6 JAVIER CHI CEFTRIAXO PSC NE SODIUM PER 250 MG URINLS 05640 A C RICK DIP 6 JAVIER CHI STICK/TAB PSC LET REAGNT NON-AUTO MICRSCPY THERAPEUT 51509 A C MERLINE IC 6 JAVIER CHI PROPHYLAC PSC TIC/DX INJECTION SUBQ/IM THERAPEUT 77859 A C MERLINE IC 6 JAVIER CHI PROPHYLAC PSC TIC/DX INJECTION SUBQ/IM URINLS 48713 A C MERLINE DIP 6 JAVIER CHI STICK/TAB PSC LET REAGNT NON-AUTO MICRSCPY CUL BACT 62623 LAB J[facility] LAB JANNA AEROBIC 6 ROSY ROSY ADDL HOLDINGS HOLDINGS METHS DEFINITIV E EA ISOL CULTURE 02203 LAB J[facility] LAB JANNA BACTERIAL 6 ROSY ROSY HOLDINGS HOLDINGS QUANTTATI VE COLONY COUNT URINE CULTURE 96826 LAB J[facility] LAB JANNA BCT 6 ROSY ROSY ISOL&PRSM HOLDINGS HOLDINGS PTV ID ISOLATE EA URINE SUSCEPTIB 17910 LAB J[facility]NA LAB JANNA LTY STDY 6 ROSY ROSY ANTIMICRB HOLDINGS HOLDINGS IAL MICRO/AGA R DILUTJ INJECTION J0696 A Kaelyn RICK 6 JAVIER CHI CEFTRIAXO PSC NE SODIUM PER 250 MG INJECTION J2550 A C A C 6 JAVIER HERRERA MD PROMETHAZ PSC PSC INE HCL UP [place] [address] [place] [address] ROBERTA CONNORS ALL ABDOMEN & 6 MEDICAL PELVIS IMAGING W/O ASS CONTRAST MATERIAL RADIOLOGI 17170 ROBERTA JULESUTCHER C 6 MEDICAL WOLFGANG EXAMINATI IMAGING ON ANKLE ASS 2 VIEWS URINLS 03422 A C CONNIE DIP 6 JAVIER ROMAN JEA STICK/TAB PSC LET REAGNT NON-AUTO MICRSCPY RADEX 27904 ROBERTA CONNORS ALL SPINE 6 MEDICAL LUMBOSACR IMAGING AL 2/3 ASS VIEWS RADEX 83981 DI[facility]NA PALACIOSON SPINE 6 [facility]OS[facility] LUMBOSACR INC INC AL MINIMUM 4 VIEWS RADEX 03709 [facility] BUSTAMANTE ANKLE 6 [facility] COMPLETE INC INC MINIMUM 3 VIEWS RADEX 28668 [place] MERHAR ANKLE 6 MEDICAL GAR COMPLETE SERV MINIMUM 3 FOUNDATIO VIEWS N RADEX 97233 [place] MERHAR FOOT 6 MEDICAL GAR COMPLETE SERV MINIMUM [address] [place] [address] [facility] [place] JAM ABDOMEN & 6 RADIOLOGY PELVIS W/O CONTRAST MATERIAL URINLS 15142 A C MERLINE DIP 6 JAVIER ROMAN ARTI STICK/TAB [place] [address] [place] PAW[place] RETROPERI 6 MEDICAL BAR TONEAL SERV REAL TIME FOUNDATIO W/[place] [address] [facility] [place] SCALF RITO ABDOMEN & 6 RADIOLOGY PELVIS W/O CONTRAST MATERIAL URNLS DIP 92467 DI[facility] BUSTAMANTE 6 [facility] STICK/TAB INC [place] [address] DIAN[facility] BUSTAMANTE ABDOMEN & 6 [facility] PELVIS INC INC W/O CONTRAST MATERIAL CULTURE 87593 [facility] BUSTAMANTE BACTERIAL 6 [facility] INC INC QUANTTATI VE COLONY COUNT URINE COMPREHEN 92473 DI[facility]NA BUSTAMANTE SIVE 6 [facility] METABOLIC INC INC PANEL BLOOD 70407 DIANNA BUSTAMANTE COUNT 6 [facility] COMPLETE INC INC AUTO&AUTO DIFRNTL WBC COLLECTIO 54792 [facility] BUSTAMANTE N VENOUS 6 [facility] BLOOD INC INC VENIPUNCT URE THERAPEUT 99562 DI[facility]NA BUSTAMANTE IC 6 [facility] INJECTION INC INC IV PUSH EACH NEW DRUG THER 12058 DIANNA PALACIOSON PROPH/DX 6 [facility] NJX IV INC INC PUSH SINGLE/1S T SBST/DRUG UNCLASSIF [id number] DIANNA PALACIOSON IED DRUGS 6 [facility] [place] [address] ROBERTA JULESUTCHER ABDOMEN & 6 MEDICAL WOLFGANG PELVIS IMAGING W/O ASS CONTRAST MATERIAL RADIOLOGI 92548 ROBERTA CONNORS ALL C 6 MEDICAL EXAMINATI IMAGING ON [place] [address] [place] [address] [facility] ABDOMEN & 6 MEDICAL MARCIA PELVIS IMAGING W/[place] [address] [facility] [place] YULI ABDOMEN & 6 RADIOLOGY RHO PELVIS W/[place] [address] [facility] [place] FU ABDOMEN & 6 RADIOLOGY CAR PELVIS W/O CONTRAST MATERIAL THERAPEUT 35240 DIANNA BUSTAMANTE IC 6 [facility] PROPHYLAC INC INC TIC/DX INJECTION SUBQ/IM BASIC 48932 DIANNA BUSTAMANTE METABOLIC 6 [facility] PANEL INC INC CALCIUM TOTAL UNCLASSIF [id number] DIANNA DIANNA IED DRUGS 6 [facility] INC INC BLOOD 13594 DIANNA BUSTAMANTE COUNT 6 [facility] COMPLETE INC INC AUTO&AUTO DIFRNTL WBC COLLECTIO 23262 DIANNA BUSTAMANTE N VENOUS 6 [facility] BLOOD INC INC VENIPUNCT URE COLLECTIO 93584 [facility] N VENOUS 6 N N BLOOD COMMUNTIY COMMUNTIY VENIPUNCT HOSPITA HOSPITA URE BLOOD 81602 [facility] COUNT 6 N N COMPLETE COMMUNTIY COMMUNTIY AUTO&[place] [address] [facility] INFUSION 6 N N THER COMMUNTIY COMMUNTIY PROPH HOSPITA HOSPITA ADDL SEQUENTIA L [place] 1 [place] [address] [facility] INFUSION 6 N N HYDRATION COMMUNTIY COMMUNTIY EACH HOSPITA HOSPITA ADDITIONA L HOUR SUSCEPTIB 55573 [facility] LTY STDY 6 N N ANTIMICRB COMMUNTIY COMMUNTIY IAL HOSPITA HOSPITA MICRO/AGA R DILUTJ COMPREHEN 99797 [facility] SIVE 6 N N METABOLIC COMMUNTIY COMM[place] [address] [facility] INFUSION 6 N N THERAPY/P COMMUNTIY COMMUNTIY ROPHYLAXI HOSPITA HOSPITA S /DX 1ST TO 1 HR THERAPEUT 39975 [facility] IC 6 N N INJECTION COMMUNTIY COMMUNTIY IV PUSH HOSPITA HOSPITA EACH NEW DRUG CUL BACT 62693 [facility] AEROBIC 6 N N ADDL COMMUNTIY COMMUNTIY METHS HOSPITA HOSPITA DEFINITIV E EA ISOL URINE 97783 [facility] 6 N N TEST COMMUNTIY COMMUNTIY VISUAL HOSPITA HOSPITA COLOR CMPRSN METHS CULTURE 49321 [facility] BACTERIAL 6 N N COMMUNTIY COMMUNTIY QUANTTATI [place]OSP[place] [address] [facility] ABDOMEN & 6 N N PELVIS COMMUNTIY COMMUNTIY W/O HOSPITA HOSPITA CONTRAST MATERIAL URNLS DIP 24393 [facility] 6 N N STICK/TAB COMMUNTIY COMMUNTIY LET HOSPITA HOSPITA REAGENT AUTO MICROSCOP Y URNLS DIP 94484 [facility] 5 N N STICK/TAB COMMUNTIY COMMUNTIY LET HOSPITA HOSP[place] [address] [facility] LIPASE 5 N N COMMUNTIY COMMUNTIY HOSPITA HOSPITA THER 07915 [facility] PROPH/DX 5 N N NJX EA COMMUNTIY COMMUNTIY SEQL IV HOSPITA HOSPITA PUSH SBST/DRUG FAC CULTURE 14254 [facility] BACTERIAL 5 N N COMMUNTIY COMMUNTIY QUANTTATI HOSPITA HOSPITA VE COLONY COUNT URINE THERAPEUT 53999 [facility] IC 5 N N INJECTION COMMUNTIY COMMUNTIY IV PUSH HOSPITA HOSPITA EACH NEW DRUG INJECTION J2550 [facility] 5 N N PROMETHAZ COMMUNTIY COMMUNTIY INE HCL HOSPITA HOSPITA UP [place] 50 [place] [address] [facility] INFUSION 5 N N THERAPY/P COMMUNTIY COMMUNTIY ROPHYLAXI HOSPITA HOSPITA S /DX 1ST TO 1 HR COMPREHEN 70241 [facility] SIVE 5 N N METABOLIC COMMUNTIY [place] [address] [facility] INFUSION 5 N N HYDRATION COMMUNTIY COMMUNTIY EACH HOSPITA HOSPITA ADDITIONA L HOUR COLLECTIO 62415 [facility] N VENOUS 5 N N BLOOD COMMUNTIY COMMUNTIY VENIPUNCT HOSPITA HOSPITA URE BLOOD 31286 [facility] COUNT 5 N N COMPLETE COMMUNTIY COMMUNTIY AUTO&AUTO HOSPITA HOSPITA DIFRNTL WBC INJECTION J2270 [facility] MORPHINE 5 N N SULFATE COMMUNTIY COMMUNTIY UP TO 10 HOSPITA HOSPITA MG RADEX 15432 [facility]TE ABDOMEN 1 5 [facility] INC INC ANTEROPOS TERIOR VIEW THER 48739 [facility] PROPH/DX 5 N N NJX EA COMMUNTIY COMMUNTIY SEQL IV HOSPITA HOSPITA PUSH SBST/DRUG FAC BASIC 40532 [facility] METABOLIC 5 N N PANEL COMMUNTIY COMMUNTIY CALCIUM HOSPITA HOSPITA TOTAL OBSERVATI 49426 [facility] ON CARE 5 SAMANTHA A GOP DISCHARGE PHYSICIAN SERVI MANAGEMEN T PROTHROMB 76955 [facility] IN TIME 5 N N COMMUNTIY COMMUNTIY HOSPITA HOSPITA BLOOD 84867 [facility] COUNT 5 N N HEMOGLOBI COMMUNTIY COMMUNTIY N HOSPITA HOSPITA COLLECTIO 85938 [facility] N VENOUS 5 N N BLOOD COMMUNTIY COMMUNTIY VENIPUNCT HOSPITA HOSPITA URE BLOOD 58466 [facility] COUNT 5 N N HEMATOCRI COMMUNTIY COMMUNTIY T HOSPITA HOSPITA INJECTION J2704 [facility] PROPOFOL 5 N N 10 MG COMMUNTIY COMMUNTIY HOSPITA HOSPITA INJECTION J1100 [facility] 5 N N DEXAMETHO COMMUNTIY COMMUNTIY SONE HOSPITA HOSPITA SODIUM PHOSPHATE 1 MG INJECTION J1170 [facility] 5 N N HYDROMORP COMMUNTIY COMMUNTIY RON UP HOSPITA HOSPITA TO 4 MG INJ J2543 [facility] PIPERACIL 5 N N MEGHAN COMMUNTIY COMMUNTIY SOD/TAZOB HOSPITA HOSPITA ACTAM SOD 1 G/0.125 G INJECTION J2550 [facility] 5 N N PROMETHAZ COMMUNTIY COMMUNTIY INE HCL HOSPITA HOSPITA UP TO 50 MG INJECTION J2001 [facility] 5 N N LIDOCAINE COMMUNTIY COMMUNTIY HCL HOSPITA HOSPITA INTRAVENO US INFUS 10 MG RINGERS J7120 [facility] LACTATE 5 N N INFUSION COMMUNTIY COMMUNTIY UP TO HOSPITA HOSPITA 1000 CC INJECTION J0696 [facility] 5 N N CEFTRIAXO COMMUNTIY COMMUNTIY NE SODIUM HOSPITA HOSPITA PER 250 MG INJECTION J2550 [facility] 5 N N PROMETHAZ COMMUNTIY COMMUNTIY INE HCL HOSPITA HOSPITA UP TO 50 MG INJ J2543 [facility] PIPERACIL 5 N N MEGHAN COMMUNTIY COMMUNTIY SOD/TAZOB HOSPITA HOSPITA ACTAM SOD 1 G/0.125 G INJECTION J1170 [facility] 5 N N HYDROMORP COMMUNTIY COMMUNTIY RON UP HOSPITA HOSPITA TO 4 MG TOBACCO 03611 [facility] USE 5 N N CESSATION COMMUNTIY COMMUNTIY HOSPITA HOSPITA INTERMEDI ATE 3-10 MINUTES ANES 91428 [place] [facility] TRURL 5 ANESTHESI JERILYN FRAGMNTJ A GROUP MANJ&/RMV PS L URETERAL CALCULUS GUIDE C1769 [facility] WIRE 5 N N COMMUNTIY COMMUNTIY HOSPITA HOSPITA STENT C2617 [facility] NON-COR 5 N N TEMPORARY COMMUNTIY COMMUNTIY WITHOUT [place] [address] [facility] INFUSION 5 N N THERAPY/P COMMUNTIY COMMUNTIY ROPHYLAXI HOSPITA HOSPITA S /DX 1ST TO 1 HR INFUSION J7030 [facility] NORMAL 5 N N SALINE COMMUNTIY COMMUNTIY SOLUTION HOSPITA HOSPITA 1000 CC COLLECTIO 63416 [facility] N VENOUS 5 N N BLOOD COMMUNTIY COMMUNTIY VENIPUNCT HOSPITA HOSPITA URE BLOOD 67475 [facility] COUNT 5 N N COMPLETE COMMUNTIY COMMUNTIY AUTO&AUTO HOSPITA HOSPITA DIFRNTL WBC SBSQ 98112 [facility] OBSERVATI 5 SAMANTHA A GOP ON PHYSICIAN CARE/DAY SERVI 35 MINUTES COMPREHEN 29303 [facility] SIVE 5 N N METABOLIC COMMUNTIY COMMUNTIY PANEL HOSPITA HOSPITA DILATION 30286 [facility]AS[facility] VASQUEZ NEPHROSTO 5 ALPESH ALPESH MY/URETER /URETHRA RS&I THER 44192 [facility] PROPH/DX 5 N N NJX EA COMMUNTIY COMMUNTIY SEQL IV HOSPITA HOSPITA PUSH SBST/[place] [address] [facility] SCAL[facility] RIT[place] ABDOMEN & 5 RADIOLOGY PELVIS W/O CONTRAST MATERIAL CALCULUS 10729 [facility] QUANTITAT 5 N N DEVYN COMMUNTIY COMMUNTIY CHEMICAL HOSPITA HOSPITA URNLS DIP 31931 [facility] 5 N N STICK/TAB COMMUNTIY COMMUNTIY LET HOSPITA HOSPITA REAGENT AUTO MICROSCOP Y CYSTO 70361 VASQUEZ VASQUEZ W/INSERT 5 ALPESH ALPESH URETERAL STENT URINE 22555 [facility] 5 N N TEST COMMUNTIY COMMUNTIY VISUAL HOSPITA HOSPITA COLOR CMPRSN [place]HS CYSTO 98879 VASQUEZ VASQUEZ W/URETERO 5 ALPESH ALPESH SCOPY W/RMVL/MA NJ STONES CULTURE 26703 [facility] BACTERIAL 5 N N COMMUNTIY COMMUNTIY QUANTTATI HOSPITA HOSPITA VE COLONY COUNT URINE CULTURE 13306 [facility] BACTERIAL 5 N N COMMUNTIY COMMUNTIY QUANTTATI HOSPITA HOSPITA VE COLONY COUNT URINE INTRODUCT 86758 [facility] ION 5 SAMANTHA JERILYN NEEDLE/IN EMERGENCY TRACATHET PHYS ER VEIN THROMBOPL 83604 [facility] ASTIN 5 N N TIME COMMUNTIY COMMUNTIY PARTIAL HOSPITA HOSPITA PLASMA/WH OLE BLOOD URNLS DIP 98711 [facility] 5 N N STICK/TAB COMMUNTIY COMMUNTIY LET HOSPITA [place] [address] [facility] ABDOMEN & 5 [facility] [place] PELVIS IMAGING W/O ASS CONTRAST MATERIAL THER 19436 [facility] PROPH/DX 5 N N NJX EA COMMUNTIY COMMUNTIY SEQL IV HOSPITA HOSPITA PUSH SBST/DRUG FAC CULTURE 09503 [facility] BACTERIAL 5 N N BLOOD COMMUNTIY COMMUNTIY AEROBIC HOSPITA HOSPITA W/ID ISOLATES COMPREHEN 55614 [facility] SIVE 5 N N METABOLIC COMMUNTIY COMMUNTIY PANEL HOSPITA HOSPITA [facility] G0378 [facility] OBSERVATI 5 N N ON COMMUNTIY COMMUNTIY SERVICE HOSPITA HOSPITA PER HOUR INITIAL 43339 [facility] OBSERVATI 5 SAMANTHA A GOP ON PHYSICIAN CARE/DAY SERVI 70 MINUTES BLOOD 00770 [facility] COUNT 5 N N COMPLETE COMMUNTIY COMMUNTIY AUTO&AUTO HOSPITA HOSPITA DIFRNTL WBC COLLECTIO 12841 [facility] N VENOUS 5 N N BLOOD COMMUNTIY COMMUNTIY VENIPUNCT HOSPITA HOSPITA URE INFUSION J7030 [facility] NORMAL 5 N N SALINE COMMUNTIY COMMUNTIY SOLUTION HOSPITA HOSPITA 1000 CC THERAPEUT 37119 [facility] IC 5 N N PROPHYLAC COMMUNTIY COMMUNTIY TIC/DX HOSPITA HOSPITA INJECTION SUBQ/IM THERAPEUT 11736 [facility] IC 5 N N INJECTION COMMUNTIY COMMUNTIY IV PUSH HOSPITA HOSPITA EACH NEW DRUG INJECTION J1170 [facility] 5 N N HYDROMORP COMMUNTIY COMMUNTIY RON UP HOSPITA HOSPITA TO 4 MG INJ J2543 [facility] PIPERACIL 5 N N MEGHAN COMMUNTIY COMMUNTIY SOD/TAZOB HOSPITA HOSPITA ACTAM SOD 1 G/0.125 G INJECTION J2550 [facility] 5 N N PROMETHAZ COMMUNTIY COMMUNTIY INE HCL HOSPITA HOSPITA UP TO 50 MG INJECTION J2270 [facility] MORPHINE 5 N N SULFATE COMMUNTIY COMMUNTIY UP TO 10 HOSPITA HOSPITA MG CULTURE 43608 [facility]UST[facility]TE BACTERIAL 5 [facility] INC INC QUANTTATI VE COLONY COUNT URINE URNLS DIP 38889 [facility] BUSTAMANTE 5 [facility] STICK/TAB INC INC LET REAGENT AUTO MICROSCOP Y URINE 98862 [facility] BUSTAMANTE 5 [facility] TEST INC INC VISUAL COLOR CMPRSN METHS UNCLASSIF J3490 [facility] BUSTAMANTE IED DRUGS 5 [facility] INC INC INFUSION J7030 [facility] NORMAL 5 N N SALINE COMMUNTIY COMMUNTIY SOLUTION HOSPITA HOSPITA 1000 CC ECG 54088 [facility] CELLAROSI ROUTINE 5 SAMANTHA - YORBA ECG EMERGENCY PAT W/LEAST PHYS 12 LDS I&[place] [address] [facility] INFUSION 5 N N THERAPY/P COMMUNTIY COMMUNTIY ROPHYLAXI HOSPITA HOSPITA S /DX 1ST TO 1 HR INJECTION J2550 [facility] 5 N N PROMETHAZ COMMUNTIY COMMUNTIY INE HCL HOSPITA HOSPITA UP TO 50 MG THERAPEUT 43046 [facility] IC 5 N N INJECTION COMMUNTIY COMMUNTIY IV PUSH HOSPITA HOSPITA EACH NEW DRUG COLLECTIO 24857 [facility] N VENOUS 5 N N BLOOD COMMUNTIY COMMUNTIY VENIPUNCT HOSPITA HOSPITA URE BLOOD 89684 [facility] COUNT 5 N N COMPLETE COMMUNTIY [place] [address] [facility] INFUSION 5 N N HYDRATION COMMUNTIY COMMUNTIY EACH HOSPITA HOSPITA ADDITIONA L HOUR COMPREHEN 32789 [facility] SIVE 5 N N METABOLIC COMMUNTIY COMMUNTIY PANEL HOSPITA HOSPITA BLOOD 24614 [facility] COUNT 5 N N SMEAR COMMUNTIY COMMUNTIY MCRSCP HOSPITA HOSPITA W/MNL DIFRNTL WBC COUNT URINE 64261 [facility] 5 N N TEST COMMUNTIY COMMUNTIY VISUAL HOSPITA HOSPITA COLOR CMPRSN METHS CULTURE 16424 [facility] BACTERIAL 5 N N COMMUNTIY COMMUNTIY QUANTTATI HOSPITA HOSPITA VE COLONY COUNT URINE URNLS DIP 34529 [facility] 5 N N STICK/TAB COMMUNTIY COMMUNTIY LET HOSPITA HOSPITA REAGENT AUTO MICROSCOP Y ECG 80882 [facility] ROUTINE 5 N N ECG COMMUNTIY COMMUNTIY W/LEAST HOSPITA HOSPITA 12 LDS TRCG ONLY W/O I&[place] [address] [facility] LIPASE 5 N N COMMUNTIY COMMUNTIY HOSPITA HOSPITA INJECTION J2270 [facility] MORPHINE 5 N N SULFATE COMMUNTIY COMMUNTIY UP TO 10 HOSPITA HOSPITA MG INJECTION J2270 [facility] MORPHINE 5 N N SULFATE COMMUNTIY COMMUNTIY UP TO 10 HOSPITA HOSPITA MG INFUSION J7030 [facility] NORMAL 5 N N SALINE COMMUNTIY COMMUNTIY SOLUTION HOSPITA HOSPITA [address] [place] [address] [facility] LIPASE 5 N N COMMUNTIY COMMUNTIY HOSPITA HOSPITA URNLS DIP 20716 [facility] 5 N N STICK/TAB COMMUNTIY COMMUNTIY LET HOSPITA HOSPITA REAGENT AUTO MICROSCOP Y CULTURE 03081 [facility] BACTERIAL 5 N N COMMUNTIY COMMUNTIY QUANTTATI [place]OS[place] [address] [facility] ABDOMEN & 5 N N PELVIS COMMUNTIY COMMUNTIY W/O HOSPITA HOSPITA CONTRAST MATERIAL URINE 93570 [facility] 5 N N TEST COMMUNTIY COMMUNTIY VISUAL HOSPITA HOSPITA COLOR CMPRSN METHS COMPREHEN 53661 [facility] SIVE 5 N N METABOLIC COMMUNTIY [place] [address] [facility] INFUSION 5 N N HYDRATION COMMUNTIY COMMUNTIY EACH HOSPITA HOSPITA ADDITIONA L HOUR BLOOD 01048 [facility] COUNT 5 N N COMPLETE COMMUNTIY COMMUNTIY AUTO&AUTO HOSPITA HOSPITA DIFRNTL WBC COLLECTIO 22577 [facility] N VENOUS 5 N N BLOOD COMMUNTIY COMMUNTIY VENIPUNCT HOSPITA HOSPITA URE THER 78120 [facility] PROPH/DX 5 N N NJX IV COMMUNTIY COMMUNTIY PUSH HOSPITA HOSPITA SINGLE/1S T SBST/DRUG UNCLASSIF J3490 [facility] BUSTAMANTE IED DRUGS 5 [place] [address] [facility] B[facility] AMYLASE 5 [facility] INC INC COMPREHEN 67367 [facility] B[facility] SIVE 5 [facility] [place] [address] [place] ABDOMEN & 5 MEDICAL [place] PELVIS IMAGING W/O ASS CONTRAST MATERIAL BLOOD 28832 [facility] COUNT 5 [facility] COMPLETE INC INC AUTO&[place] [address] [facility] LIPASE 5 [facility] INC INC URNLS DIP 34462 [facility] BUSTAMANTE 5 [facility] STICK/TAB INC INC LET REAGENT AUTO MICROSCOP Y CULTURE 06414 [facility] BUSTMA[facility]TE BACTERIAL 5 [facility] INC INC QUANTTATI VE COLONY COUNT URINE URINE 71959 [facility]USTAMANTE 5 [facility] TEST INC [place] [address] [facility] B[facility] LIPASE 5 [facility] INC INC COMPREHEN 61533 [facility]USTAMANTE SIVE 5 [facility] METABOLIC INC INC PANEL BLOOD 61448 [facility] BUSTAMANTE COUNT 5 [facility] COMPLETE INC INC AUTO&AUTO DIFRNTL WBC UNCLASSIF J3490 [facility] BUSTAMANTE IED DRUGS 5 [facility] INC INC COLLECTIO 77442 [facility] BUSTAMANTE N VENOUS 5 [facility] BLOOD INC INC VENIPUNCT URE URNLS DIP 09341 [facility] BUSTAMANTE 5 [facility] STICK/TAB INC INC LET REAGENT AUTO MICROSCOP Y URINE 30117 DIANNA [facility]USTAMANTE 5 [facility] TEST INC [place] [address] [facility] ABDOMEN & 5 MED[facility] [place] PELVIS IMAGING W/O ASS CONTRAST MATERIAL URINE 51976 DI[facility]NA BUSTAMANTE 5 [facility] TEST INC INC VISUAL COLOR CMPRSN METHS URNLS DIP 91542 DIANNA BUSTAMANTE 5 [facility] STICK/TAB INC INC LET REAGENT AUTO MICROSCOP Y INJECTION J1200 [facility] UP TO 50 MG INJECTION J1956 [facility] 5 Y Y LEVOFLOXA [facility] LETY 250 MG INJECTION J2270 [facility] MORPHINE 5 Y Y SULFATE [facility] UP TO 10 MG INJECTION J2270 [facility] MORPHINE 5 Y Y SULFATE [facility] UP TO 10 MG INJECTION J2765 [facility] 5 Y Y METOCLOPR [facility] AMIDE HCL UP TO 10 MG INFUSION J7030 [facility] NORMAL 5 Y Y SALINE [facility] SOLUTION 1000 CC THERAPEUT 28632 [facility] IC 5 Y Y INJECTION [facility] [place] [address] [facility] INFUSION 5 Y Y THERAPY/P [facility] ROPHYLAXI S /DX 1ST TO 1 HR BLOOD 50933 [facility] COUNT 5 Y Y COMPLETE [facility] AUTOMATED COMPREHEN 95186 [facility] SIVE 5 Y Y METABOLIC [facility] PANEL URNLS DIP 62428 [facility] 5 Y Y STICK/TAB [facility] LET [place] [address] [facility] LIPASE 5 Y Y [facility] THER 15851 [facility] PROPH/DX 5 Y Y NJX EA [facility] SEQL IV PUSH SBST/DRUG FAC URINE 21531 [facility] 5 Y Y TEST [facility] [place] [address] [facility] ABDOMEN & 5 RADIOLOGY ROBERT PELVIS W/O CONTRAST MATERIAL CULTURE 08770 [facility] BACTERIAL 5 [facility] INC INC QUANTTATI VE COLONY COUNT URINE THROMBOPL 11113 [facility]USTAMANTE ASTIN 5 [facility] TIME INC INC PARTIAL PLASMA/[place] [address] [facility] BUSTAM[facility]TE ABDOMEN & 5 [facility] PELVIS INC INC W/[place] [address] [facility] LIPASE 5 [facility] INC INC PROTHROMB 58078 [facility] BUSTAMANTE IN TIME 5 [facility] INC INC URNLS DIP 79788 [facility] BUSTAMANTE 5 [facility] STICK/TAB INC INC LET REAGENT AUTO MICROSCOP Y COMPREHEN 97551 [facility] BUSTAM[facility]TE SIVE 5 [facility] [place] [address] [facility] BUSTAMANTE AMYLASE 5 [facility] INC INC BLOOD 10557 [facility]USTAMANTE COUNT 5 [facility] COMPLETE INC INC AUTO&[place] [address] [facility] B[facility] INFUSION 5 [facility] THERAPY/P INC INC ROPHYLAXI S /DX 1ST TO 1 HR UNCLASSIF J3490 [facility] BUSTAMANTE IED DRUGS 5 [facility] INC INC THERAPEUT 26794 [facility] B[facility] IC 5 [facility] INJECTION INC INC IV PUSH EACH NEW DRUG THERAPEUT 90715 [facility] IC 5 N N INJECTION COMMUNTIY COMMUNTIY IV PUSH HOSPITA HOSPITA EACH NEW DRUG LOCM Q9967 [facility] 300-399 5 N N MG/ML COMMUNTIY COMMUNTIY IODINE HOSPITA HOSPITA CONCENTRA TION PER ML BLOOD 65217 [facility] COUNT 5 N N COMPLETE COMMUNTIY COMMUNTIY AUTO&AUTO HOSPITA HOSPITA DIFRNTL WBC COMPREHEN 14916 [facility] SIVE 5 N N METABOLIC COMMUNTIY COMMUNTI[place] [address] [facility] AMYLASE 5 N [place] [address] [facility] ABDOMEN & 5 N N PELVIS COMMUNTIY COMMUNTIY W/CONTRAS HOSPITA HOSPITA T MATERIAL URNLS DIP 02922 [facility] 5 N N STICK/TAB COMMUNTIY COMMUNTIY LET HOSPITA HOSPITA [place] [address] [facility] LIPASE 5 N N COMMUNTIY COMMUNTIY HOSPITA HOSPITA URINE 91576 [facility] 5 N N TEST COMMUNTIY COMMUNTIY VISUAL HOSPITA HOSPITA COLOR CMPRSN METHS CULTURE 25827 [facility] BACTERIAL 5 N N COMMUNTIY COMMUNTIY QUANTTATI HOSPITA HOSPITA VE COLONY COUNT URINE INJECTION J2550 [facility] 5 N N PROMETHAZ COMMUNTIY COMMUNTIY INE HCL HOSPITA HOSPITA UP TO 50 MG INJECTION J2270 [facility] MORPHINE 5 N N SULFATE COMMUNTIY COMMUNTIY UP TO 10 HOSPITA HOSPITA MG CULTURE 22362 [facility] B[facility] BACTERIAL 5 [facility] INC INC QUANTTATI VE COLONY COUNT URINE URINE 56480 DIANNA DIANNA 5 [facility] TEST INC INC [place] [address] [facility] BUSTAMANTE LIPASE 5 [facility] INC INC URNLS DIP 06219 DIANNA DIANNA 5 [facility] STICK/TAB INC INC [place] [address] DIANNA DIANNA AMYLASE 5 [facility] INC INC COMPREHEN 04919 [facility]USTAMANTE SIVE 5 [facility] METABOLIC INC INC PANEL BLOOD 99135 [facility] BUSTAMANTE COUNT 5 [facility] COMPLETE INC INC AUTO&AUTO DIFRNTL WBC UNCLASSIF J3490 [facility] BUSTAMANTE IED DRUGS 5 [facility] INC INC UNCLASSIF J3490 [facility] BUSTAMANTE IED DRUGS 5 [facility] INC INC URNLS DIP 27256 [facility] BUSTAMANTE 5 [facility] STICK/TAB INC [place] [address] [facility] BUSTAMANTE ABDOMEN & 5 [facility] PELVIS INC INC W/O CONTRAST MATERIAL URINE 55753 [facility] TEST INC INC VISUAL COLOR CMPRSN METHS UNCLASSIF [id number] [facility]ED [facility]UGS [facility] INC THERAPEUT 21934 [facility] IC [facility] INJECTION INC INC IV PUSH EACH NEW DRUG THER 55194 [facility]UST[facility] PROPH/DX 5 [facility] NJX IV INC INC PUSH SINGLE/1S T SBST/[place] [address] ROBERTA GARZA ABDOMEN & 5 [facility] PELVIS IMAGING W/O ASS CONTRAST MATERIAL RADIOLOGI 74832 ROBERTA GARZA C 5 [facility] EXAMINATI IMAGING ON TIBIA ASS & FIBULA 2 VIEWS Encounters Encounter Start End Date Code Location Performer Type Date OFFICE 21219 A Kaelyn RICK OUTPATIDAVIDA 7 7 JAVIER ROMAN T VISIT PSC 10 MINUTES OFFICE 88279 A Kaelyn MOSS 7 7 JAVIER ROMAN T VISIT PSC 15 MINUTES EMERGENCY 13541 LÁZARO PATE DEPT 7 7 PHYSICIAN VISIT S, [facility] HIGH SEVERITY& THREAT FUNCJ EMERGENCY 11054 LÁZARO DEAN DEPT 7 7 PHYSICIAN JR VISIT S, [facility] HIGH SEVERITY& THREAT [facility] DIAN[facility] - 7 7 [facility] OUTPATIEN INC T EMERGENCY 80235 [facility] 7 7 [facility] DEPARTMEN INC T VISIT LOW/MODER SEVERITY EMERGENCY 57377 LÁZARO PATE 7 7 PHYSICIAN DEPARTMEN S, [facility] T VISIT MODERATE SEVERITY HOSPITAL [facility] - 7 7 [facility] OUTPATIEN INC T EMERGENCY 59061 Jackeline GRAY 7 PHYSICIAN JR DEPARTMEN S, [facility] T VISIT HIGH/URGE NT SEVERITY EMERGENCY 86036 DIANNA 7 7 [facility] DEPARTMEN INC T VISIT LOW/MODER SEVERITY OFFICE 39063 A Kaelyn MOSS 7 7 JAVIER ROMAN T VISIT PSC 25 MINUTES EMERGENCY 27386 DI[facility] MAGALLANEST 7 7 [facility] VISIT INC HIGH SEVERITY& THREAT [facility] - 7 7 [facility] OUTPATIEN INC T EMERGENCY 88315 DANNY STEWART DEPT 7 7 SAMANTHA VISIT EMERGENCY HIGH PHYS SEVERITY& THREAT FUNJ EMERGENCY 96209 LÁZARO WLATON DEPT 7 7 PHYSICIAN U VISIT S, PLL[facility] HIGH SEVERITY& THREAT FUNCJ EMERGENCY 25376 [facility] 7 7 [facility] DEPARTMEN INC T VISIT LOW/MODER SEVERITY [facility]OSPITAL [facility] - 7 7 [facility] OUTPATIEN INC T OFFICE 82482 A Kaelyn BUCHANANPATIDAVIDA 7 7 JAVIER ROMAN T VISIT PSC 15 MINUTES OFFICE 19165 DI[facility]NA BUCHANANPATIDAVIDA 7 7 [facility] T VISIT 5 INC MINUTES [facility]OSPITAL [facility] - 7 7 [facility] OUTPATIEN INC T OFFICE 41581 A Kaelyn MOSS 7 7 JAVIER ROMAN T VISIT PSC 15 MINUTES EMERGENCY 14830 [facility] 7 7 SAM[facility]THA DEPARTMEN EMERGENCY T VISIT PHYS HIGH/URGE NT SEVERITY HOSPITAL [facility] - 7 7 [facility] T EMERGENCY 72344 LÁZARO PATE 7 7 PHYSICIAN DEPARTMEN S, [facility] T VISIT HIGH/URGE NT SEVERITY EMERGENCY 87391 [facility] 7 7 [facility] DEPARTMEN INC T VISIT LOW/MODER SEVERITY EMERGENCY 00256 [facility] 7 7 SAMANTHA DEPARTMEN EMERGENCY T VISIT PHYS HIGH/URGE NT SEVERITY EMERGENCY 06819 LÁZARO WALTON DEPT 7 7 PHYSICIAN U VISIT S, PLLC HIGH SEVERITY& THREAT FUNCJ EMERGENCY 49634 LÁZARO PATE 7 7 PHYSICIAN DEPARTMEN S, [facility] T VISIT HIGH/URGE NT SEVERITY [facility] - 6 6 N OUTPATIEN COMMUNTIY T HOSPITA EMERGENCY 24691 [facility] 6 6 SAM[facility]THA DEPARTMEN EMERGENCY T VISIT PHYS HIGH/URGE NT SEVERITY EMERGENCY 89803 [facility] 6 6 N DEPARTMEN COMMUNTIY T VISIT HOSPITA MODERATE SEVERITY EMERGENCY 79735 [facility] 6 6 [facility] VISIT EMERGENCY HIGH SERV SEVERITY& THREAT FUNCJ EMERGENCY 38374 LÁZARO [facility] 6 6 PHYSICIAN U DEPARTMEN S, PLLC T VISIT HIGH/URGE NT SEVERITY HOSPITAL [facility] - 6 6 [facility] INC T EMERGENCY 84465 [facility] 6 6 [facility] DEPARTMEN INC T VISIT LIMITED/M INOR PROB EMERGENCY 07607 [facility] DIANNA DEPT 6 6 SAM[facility]HTA SCO VISIT EMERGENCY HIGH PHYS SEVERITY& THREAT FUNCJ OFFICE 56178 A C NEELAM LUCAS OUTPATIEN 6 6 JAVIER ROMAN T VISIT PSC 15 MINUTES EMERGENCY 83636 LÁZARO WALTON DEPT 6 6 PHYSICIAN Valery KENNEDY VISIT S, PLLC HIGH SEVERITY& THREAT FUNCJ OFFICE 02732 A C MERLINE OUTPATIEN 6 6 JAVIER CHI T VISIT PSC 15 MINUTES OFFICE 72051 A C MERLINE OUTPATIEN 6 6 JAVIER [facility] T VISIT PSC 15 MINUTES HOSPITAL DIANNA - 6 6 [facility] OUTPATIEN INC T OFFICE 77049 A C MERLINE OUTPATIEN 6 6 JAVIER CHI T VISIT PSC 15 MINUTES OFFICE 95766 A C CONNIE OUTPATIEN 6 6 JAVIER LOGAN T VISIT PSC 15 MINUTES OFFICE 14522 A C MERLINE OUTPATIEN 6 6 JAVIER [facility]I T VISIT PSC 15 MINUTES HOSPITAL DIANNA - 6 6 [facility] INC T OFFICE [id number] A C RICK OUTPATIEN 6 6 JAVIER CHI T VISIT PSC 15 MINUTES OFFICE 13207 A C MERLINE OUTPATIEN 6 6 JAVIER CHI T VISIT PSC 15 MINUTES OFFICE [id number] A C MERLINE OUTPATIEN 6 6 JAVIER CHI T VISIT PSC 15 MINUTES EMERGENCY 25714 LÁZARO PATE 6 6 PHYSICIAN [facility] DEPARTMEN S, [facility]IS[facility] HIGH/URGE NT SEVERITY HOSPITAL DIANNA - 6 6 [facility] INC T OFFICE 15888 A C CONNIE OUTPATIEN 6 6 JAVIER LOGAN T VISIT PSC 25 MINUTES HOSPITAL DIANNA - 6 6 [facility] OUT[facility]IEN INC T OFFICE 93634 A C MERLINE OUTPATIEN 6 6 JAVIER CHI T VISIT PSC 15 MINUTES EMERGENCY 78917 [facility] JAM 6 6 SAMANTHA DEPARTMEN EMERGENCY T VISIT PHYS HIGH/URGE NT SEVERITY EMERGENCY 74699 JOCY BRASHER QUENTIN 6 6 MEDICAL DEPARTMEN SERV T VISIT FOUNDATIO MODERATE N SEVERITY OFFICE 06271 A Kaelyn RICK OUTPATIEN 6 6 JAVIER CHI T NEW 30 PSC MINUTES EMERGENCY 53999 JOCY TAM 6 6 MEDICAL MAT DEPARTMEN SERV T VISIT FOUNDATIO HIGH/URGE N NT SEVERITY EMERGENCY 72874 [facility] BAB 6 6 SAMANTHA DEPARTMEN EMERGENCY T VISIT PHYS HIGH/URGE NT SEVERITY EMERGENCY 64148 LÁZARO PATE DEPT 6 6 PHYSICIAN LYNDA VISIT S, [facility] HIGH SEVERITY& THREAT [facility] DIANNA - 6 6 [facility] OUTPATIEN INC T EMERGENCY 98467 DIANNA 6 6 [facility] DEPARTMEN INC T VISIT HIGH/URGE NT SEVERITY EMERGENCY 60066 LÁZARO WALTON 6 6 PHYSICIAN U MARCIA DEPARTMEN S, [facility] T VISIT MODERATE SEVERITY EMERGENCY 21465 [facility] SCO 6 6 SAMANTHA DEPARTMEN EMERGENCY T VISIT SERV HIGH/URGE NT SEVERITY EMERGENCY 58830 LÁZARO PATE 6 6 PHYSICIAN LYNDA DEPARTMEN S, [facility] T VISIT HIGH/URGE NT SEVERITY EMERGENCY 51089 LÁZARO WALTON 6 6 PHYSICIAN U MARCIA [facility] S, [facility] T VISIT MODERATE SEVERITY EMERGENCY 80847 LÁZARO PATE 6 6 PHYSICIAN [facility] T VISIT HIGH/URGE NT SEVERITY EMERGENCY 38592 LÁZARO HOWELL 6 6 PHYSICIAN [facility] T VISIT HIGH/URGE NT SEVERITY EMERGENCY 00798 DANNY ROYAL 6 6 SAMANTHA [facility] EMERGENCY T VISIT PHYS HIGH/URGE NT SEVERITY EMERGENCY 01970 LÁZARO CHACON DEPT 6 6 PHYSICIAN FOR VISIT [facility] HIGH SEVERITY& THREAT FUNCJ EMERGENCY 52528 LÁZARO PATE 6 6 PHYSICIAN [facility] T VISIT HIGH/URGE NT SEVERITY EMERGENCY 08949 DANNY MCDANIELOSTER 6 6 SAMANTHA [facility] EMERGENCY T VISIT PHYS HIGH/URGE NT SEVERITY EMERGENCY 02334 LÁZARO LYNNE 6 6 PHYSICIAN [facility] T VISIT HIGH/URGE NT SEVERITY EMERGENCY 96124 DIANNA 6 6 [facility] DEPARTMEN INC T VISIT MODERATE SEVERITY HOSPITAL DIANNA - 6 6 [facility] OUTPATIEN INC T EMERGENCY 21766 [facility] 6 6 N [facility] COMMUNTIY T VISIT HOSPITA HIGH/URGE NT SEVERITY EMERGENCY 66313 [facility] ILANA DEPT 6 6 SAMANTHA MON VISIT EMERGENCY HIGH PHYS SEVERITY& THREAT [facility] - 6 6 N OUTPATIEN COMMUNTIY T HOSPITA EMERGENCY 63855 [facility] 5 5 N [facility] COMMUNTIY T VISIT HOSPITA HIGH/URGE NT SEVERITY EMERGENCY 09983 [facility] ROSALES BHAKTA DEPT 5 5 SAMANTHA VISIT EMERGENCY HIGH SERV SEVERITY& THREAT [facility] [place] - 5 5 N OUTPATIEN COMMUNTIY T HOSPITA EMERGENCY 78960 LÁZARO PATE DEPT 5 5 PHYSICIAN LYNDA VISIT S, PLLC HIGH SEVERITY& THREAT [facility] DIANNA - 5 5 [facility] OUTPATIEN INC T EMERGENCY 00866 DIANNA 5 5 [facility] DEPARTMEN INC T VISIT LOW/MODER SEVERITY HOSPITAL [facility] - 5 5 N OUTPATIEN COMMUNTIY T HOSPITA EMERGENCY 86939 [facility] DEPT 5 5 SAMANTHA JERILYN VISIT EMERGENCY HIGH PHYS SEVERITY& THREAT FUNCJ EMERGENCY 39958 LÁZARO OROZCO 5 5 PHYSICIAN BUTTS DEPARTMEN S, [facility] T VISIT MODERATE SEVERITY EMERGENCY 97127 LÁZARO PATE 5 5 PHYSICIAN LYNDA DEPARTMEN S, [facility] T VISIT HIGH/URGE NT SEVERITY EMERGENCY 73940 DIANNA 5 5 [facility] DEPARTMEN INC T VISIT LOW/MODER SEVERITY HOSPITAL DIANNA - 5 5 [facility] OUTPATIEN INC T HOSPITAL DIANNA - 5 5 [facility] OUTPATIEN INC T EMERGENCY 22210 DIANNA 5 5 [facility] DEPARTMEN INC T VISIT LOW/MODER SEVERITY EMERGENCY 04239 LÁZARO WALTON 5 5 PHYSICIAN U MARCIA DEPARTMEN S, [facility] T VISIT MODERATE SEVERITY EMERGENCY 82048 [facility] CELLAROSI DEPT 5 5 SAMANTHA - YORBA VISIT EMERGENCY PAT HIGH PHYS SEVERITY& THREAT FUNCJ EMERGENCY 62085 [facility] 5 5 N DEPARTMEN COMMUNTIY T VISIT HOSPITA HIGH/URGE NT SEVERITY HOSPITAL [facility] - 5 5 N OUTPATIEN COMMUNTIY T HOSPITA EMERGENCY 98335 [facility] 5 5 N DEPARTMEN COMMUNTIY T VISIT HOSPITA HIGH/URGE NT SEVERITY EMERGENCY 67404 [facility] DEPT 5 5 SAMANTHA JERILYN VISIT EMERGENCY HIGH PHYS SEVERITY& THREAT [facility] - 5 5 N OUTPATIEN COMMUNTIY T HOSPITA EMERGENCY 78262 [facility] 5 [facility] V[facility]/M INOR PROB EMERGENCY 04177 LÁZARO TELLES 5 5 PHYSICIAN DEPARTMEN S, [facility] T VISIT MODERATE SEVERITY HOSPITAL DIANNA - 5 5 [facility] T HOSPITAL DIANNA [facility] 5 5 [facility] OUTPATIEN [facility] T EMERGENCY 25209 [facility]NA 5 [facility] T VISIT LOW/MODER SEVERITY EMERGENCY 06751 LÁZARO PATE DEPT 5 5 PHYSICIAN LYDNA VISIT S, [facility] HIGH SEVERITY& THREAT [facility] EMERGENCY 90149 [facility] 5 [facility] T VISIT MODERATE SEVERITY EMERGENCY 23115 LÁZARO OLVERA 5 5 PHYSICIAN DEPARTMEN S, [facility] T VISIT HIGH/URGE NT SEVERITY HOSPITAL DIANNA - 5 5 [facility] T EMERGENCY 75778 LÁZARO PATE 5 5 PHYSICIAN LYNDA DEPARTMEN S, [facility] T VISIT HIGH/URGE NT SEVERITY EMERGENCY 65773 [facility]NA 5 [facility] T VISIT LOW/MODER SEVERITY HOSPITAL DIANNA - 5 5 [facility] OUTPATIEN [facility] T HOSPITAL [facility]ERS[facility] - 5 5 [facility] 75822 UNIV[facility] 5 5 Y [facility] T VISIT HIGH/URGE NT SEVERITY EMERGENCY 93285 [facility] 5 5 [facility]A [facility] VISIT PHYS HIGH/URGE NT SEVERITY EMERGENCY 82318 [facility]NA 5 [facility] T VISIT HIGH/URGE NT SEVERITY EMERGENCY 06894 LÁZARO WALTON DEPT 5 5 PHYSICIAN U MARCIA VISIT S, PLLC HIGH SEVERITY& THREAT [facility] DIANNA - 5 5 [facility] OUT[facility] INC T EMERGENCY 93147 [facility] 5 5 N DEPARTMEN COMMUNTIY T VISIT HOSPITA HIGH/URGE NT SEVERITY HOSPITAL [facility] - 5 5 N OUTPATIEN COMMUNTIY T HOSPITA EMERGENCY 13783 [facility] DEPT 5 5 SAMANTHA COREY VISIT EMERGENCY HIGH PHYS SEVERITY& THREAT FUNJ EMERGENCY 83493 DIANNA 5 5 [facility] VIS[facility] LOW/MODER SEVERITY EMERGENCY 66497 LÁZARO PATE 5 5 PHYSICIAN [facility] S, [facility] T VISIT HIGH/URGE NT SEVERITY HOSPITAL DIANNA - 5 5 [facility] OUTPATIEN INC T HOSPITAL DIANNA Meza 5 [facility] OUTPATIEN INC T EMERGENCY 16747 DIANNA PATE 5 5 [facility] T VISIT P MODERATE SEVERITY EMERGENCY 59065 DIANNA 5 5 [facility] INC T VISIT LOW/MODER SEVERITY EMERGENCY 08132 DIANNA ARBOLEDA 5 5 [facility] T VISIT P LOW/MODER SEVERITY EMERGENCY 60555 [facility]NA 5 5 [facility] HIGH/URGE NT SEVERITY HOSPITAL DIANNA - 5 5 [facility] OUT[facility] INC T EMERGENCY 71948 DIANNA DEAN, 5 5 [facility] T VISIT P MODERATE SEVERITY HOSPITAL DIANNA - 5 5 [facility] OUT[facility] INC T EMERGENCY 79829 DIANNA 5 [facility] LOW/MODER SEVERITY
[2017-03-25] MEDS ORDERED: HYDROCODONE/ACE1 TA5 PO (13:39)
--- NOTE | 2017-03-25 13:39 | Emergency Room Report ---
History of Present Illness Time Seen by 1300 Presenting Problem in Triage Pt arrived:Walked Presenting Problem:PT REPORTS L FLANK PAIN RADIATING TO L LOWER ABD. PT STATES "I HAVE SEVERE HYDRONEPHROSIS", PT STATES HER PCP SENT HER TO THE ER BECAUSE "SHE IS AT A LOSS FOR WHAT TO DO FOR ME." PT STATES HAS AN APPOINTMENT WITH HER UROLOGIST SATURDAY OF THIS WEEK. 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 N Clinical Suspician of Infection? N Mental Status: 1 - Regular (Normal Baseline) Sepsis Risk:Possible Sepsis Risk Have you (or family members/close friends) recently traveled outside the [place]? N If Yes, where/when: Have you had exposure to infectious disease within the past month? N TB? Other? Specify: Source patient, RN notes reviewed, RN/MD Exam Limitations no limitations Comment This is a 31-year-old feel patient with known history of kidney stones presenting to the emergency room with LEFT flank pain. She has an appointment to see Dr. Arvizu . In the meanwhile she has been seen in [facility] as well as [place], for same complaint. Recent CT scan obtained just 5 days ago confirms recent stone passage on the LEFT side, and hydronephrosis. ALLERGIES Coded Allergies: ketorolac (From TORADOL) (Mild, 01/28/16) aztreonam (NA-NAUSEA/VOMITING 01/28/16) cefaclor (01/28/16) codeine (BLEEDING OF EYES AND NOSE 02/19/17) doxycycline (01/28/16) levofloxacin (From LEVAQUIN) (01/28/16) midazolam (From VERSED) (01/28/16) ondansetron (From ZOFRAN ( HYDROCHLORIDE)) (01/28/16) sulfamethoxazole (From BACTRIM) (01/28/16) trimethoprim (From BACTRIM) (01/28/16) Home Medications Active Scripts Phenazopyridine HCl (Pyridium) 100 MG PO TID #21 TAB Prov: 02/27/17 NITROFURANTOIN MONOHYD/M-CRYST (Macrobid 100 MG Capsule) 100 MG PO BID #14 CAP Prov: 02/19/17 Reported Medications HYDROCHLOROTHIAZIDE (Hydrochlorothiazide) 25 MG PO DAILY Buspirone Hcl (Buspar 10MG) 30 MG PO TIDP PRN ANXIETY Mirtazapine (Remeron) 30 MG PO QHS Albuterol Sulfate (Proair Hfa) 2 PUFF IH Q4HP PRN SHORTNESS OF BREATH Paroxetine (Paxil) 40 MG PO DAILY Ranitidine Hcl (Zantac) 150 MG PO PRN PRN GERD History Medical History General CAD? No Angina: No IN: No Hypertension? Yes Hyperlipidemia? Yes CHF? No DVT? No PE? No COPD? No Asthma? Yes Anemia? No GERD? No Gastric ulcers? No GI Bleed? No Hernia? No Thyroid Problems? No Hypothyroidism? No CVA? No Seizures? No Diabetes? No Insulin Dependent: No Insulin Pump: No Home FSBS? No Renal Insuffiency? No End Stage Renal Disease? No UTI? Yes Stones? Yes BPH? No GB Disease: Yes Nephritic Syndrome? No Asplenia? No Hepatitis? No Sickle Cell Disease? No Arthritis? No Migraines? Yes Cataracts? No Glaucoma? No MRSA? No HIV? No TB? No Anxiety? Yes Depression? Yes Cancer? No More? 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 Family History Family Hx Diabetes No CAD No Hypertension No Hyperlipidemia No Cancer No TB No Social History Smoking Hx Smoker: Never Smoker Tobacco: Yes Type Chew Packs/day < 1 Pack Alcohol Alcohol: No Review of Systems All Other Systems Reviewed and Negative Musculoskeletal back pain Physical Exam Vital Signs Vital Signs Date Time Temp Pulse Resp B/P Pulse O2 O2 Flow FiO2 Ox Delivery Rate 03/25 1340 98.4 105 20 160/98 97 03/25 1311 98.4 105 20 162/117 97 General Appearance normal appearance, WD/WN, moderate distress Respiratory Status Yes: trachea midline, chest symmetrical, non tender chest. No: respiratory distress. Lung Sounds bilateral: normal breath sounds, lungs clear. 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 Yes [place] was queried for this patient? Yes Reference #: [id number] Risks/benefits of using a controlled substance for treatment were discussed w/pt by me Comment Upon reevaluation patient appears medically stable distress. Results/Orders Laboratory Tests 03/25/17 1300: Urine Color Cancelled, Urine Appearance Cancelled, Urine pH Cancelled, Ur Specific [place] Cancelled Departure Departure Time of Disposition 1337 Disposition DC Home or Self Care(routine) Clinical Impression Primary Impression: Kidney stones Condition STABLE Referrals Arnoldo Arvizu MD: 3 Days-Call Office , as previosuly scheduled Patient Instructions DI for Kidney Stones Additional Instructions Please follow-up with Dr. Arvizu as scheduled, take the pain medications as directed. Discharge Counseling Counseled pt/family regarding diagnosis, test results, medications/RX, home care, follow up needs Comment Please follow-up with Dr. Arvizu as scheduled, take the pain medications as directed. Prescriptions Current Visit Scripts HYDROCODONE/ACETAMINOPHEN (Lortab 10-325 (generic) Tablet) 1 TAB PO Q6HP PRN pain #10 TAB ED Critical Care Critical Care No at 0307
--- NOTE | 2017-03-25 13:39 | Emergency Room Report ---
History of Present Illness Time Seen by 1300 Presenting Problem in Triage Pt arrived:Walked Presenting Problem:PT REPORTS L FLANK PAIN RADIATING TO L LOWER ABD. PT STATES "I HAVE SEVERE HYDRONEPHROSIS", PT STATES HER PCP SENT HER TO THE ER BECAUSE "SHE IS AT A LOSS FOR WHAT TO DO FOR ME." PT STATES HAS AN APPOINTMENT WITH HER UROLOGIST SATURDAY OF THIS WEEK. 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 N Clinical Suspician of Infection? N Mental Status: 1 - Regular (Normal Baseline) Sepsis Risk:Possible Sepsis Risk Have you (or family members/close friends) recently traveled outside the [place]? N If Yes, where/when: Have you had exposure to infectious disease within the past month? N TB? Other? Specify: Source patient, RN notes reviewed, RN/MD Exam Limitations no limitations Comment This is a 31-year-old feel patient with known history of kidney stones presenting to the emergency room with LEFT flank pain. She has an appointment to see Dr. Arvizu . In the meanwhile she has been seen in [facility] as well as [place], for same complaint. Recent CT scan obtained just 5 days ago confirms recent stone passage on the LEFT side, and hydronephrosis. ALLERGIES Coded Allergies: ketorolac (From TORADOL) (Mild, 01/28/16) aztreonam (NA-NAUSEA/VOMITING 01/28/16) cefaclor (01/28/16) codeine (BLEEDING OF EYES AND NOSE 02/19/17) doxycycline (01/28/16) levofloxacin (From LEVAQUIN) (01/28/16) midazolam (From VERSED) (01/28/16) ondansetron (From ZOFRAN ( HYDROCHLORIDE)) (01/28/16) sulfamethoxazole (From BACTRIM) (01/28/16) trimethoprim (From BACTRIM) (01/28/16) Home Medications Active Scripts Phenazopyridine HCl (Pyridium) 100 MG PO TID #21 TAB Prov: 02/27/17 NITROFURANTOIN MONOHYD/M-CRYST (Macrobid 100 MG Capsule) 100 MG PO BID #14 CAP Prov: 02/19/17 Reported Medications HYDROCHLOROTHIAZIDE (Hydrochlorothiazide) 25 MG PO DAILY Buspirone Hcl (Buspar 10MG) 30 MG PO TIDP PRN ANXIETY Mirtazapine (Remeron) 30 MG PO QHS Albuterol Sulfate (Proair Hfa) 2 PUFF IH Q4HP PRN SHORTNESS OF BREATH Paroxetine (Paxil) 40 MG PO DAILY Ranitidine Hcl (Zantac) 150 MG PO PRN PRN GERD History Medical History General CAD? No Angina: No ME: No Hypertension? Yes Hyperlipidemia? Yes CHF? No DVT? No PE? No COPD? No Asthma? Yes Anemia? No GERD? No Gastric ulcers? No GI Bleed? No Hernia? No Thyroid Problems? No Hypothyroidism? No CVA? No Seizures? No Diabetes? No Insulin Dependent: No Insulin Pump: No Home FSBS? No Renal Insuffiency? No End Stage Renal Disease? No UTI? Yes Stones? Yes BPH? No GB Disease: Yes Nephritic Syndrome? No Asplenia? No Hepatitis? No Sickle Cell Disease? No Arthritis? No Migraines? Yes Cataracts? No Glaucoma? No MRSA? No HIV? No TB? No Anxiety? Yes Depression? Yes Cancer? No More? 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 Family History Family Hx Diabetes No CAD No Hypertension No Hyperlipidemia No Cancer No TB No Social History Smoking Hx Smoker: Never Smoker Tobacco: Yes Type Chew Packs/day < 1 Pack Alcohol Alcohol: No Review of Systems All Other Systems Reviewed and Negative Musculoskeletal back pain Physical Exam Vital Signs Vital Signs Date Time Temp Pulse Resp B/P Pulse O2 O2 Flow FiO2 Ox Delivery Rate 03/25 1340 98.4 105 20 160/98 97 03/25 1311 98.4 105 20 162/117 97 General Appearance normal appearance, WD/WN, moderate distress Respiratory Status Yes: trachea midline, chest symmetrical, non tender chest. No: respiratory distress. Lung Sounds bilateral: normal breath sounds, lungs clear. 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 Yes [place] was queried for this patient? Yes Reference #: [id number] Risks/benefits of using a controlled substance for treatment were discussed w/pt by me Comment Upon reevaluation patient appears medically stable distress. Results/Orders Laboratory Tests 03/25/17 1300: Urine Color Cancelled, Urine Appearance Cancelled, Urine pH Cancelled, Ur Specific [place] Cancelled Departure Departure Time of Disposition 1337 Disposition DC Home or Self Care(routine) Clinical Impression Primary Impression: Kidney stones Condition STABLE Referrals Arnoldo Arvizu MD: 3 Days-Call Office , as previosuly scheduled Patient Instructions DI for Kidney Stones Additional Instructions Please follow-up with Dr. Arvizu as scheduled, take the pain medications as directed. Discharge Counseling Counseled pt/family regarding diagnosis, test results, medications/RX, home care, follow up needs Comment Please follow-up with Dr. Arvizu as scheduled, take the pain medications as directed. Prescriptions Current Visit Scripts HYDROCODONE/ACETAMINOPHEN (Lortab 10-325 (generic) Tablet) 1 TAB PO Q6HP PRN pain #10 TAB ED Critical Care Critical Care No at 0307
[2017-03-25 13:40] VITALS: BP 160/98
--- OUTSIDE RECORDS SUMMARY | 2017-03-25 13:41 | External Medical Summary Rpt | CCD ---
Author Author , ROBERTO Calvert ROBERTO Address Unknown Phone [email or web address] Care Team Providers Care Bull Riveter Name Role Phone A Kaelyn HERRERA MD PSC, Lynn Unavailable Unavailable Kaelyn HERRERA MD PSC LELE MIRANDA Unavailable Unavailable KAEL SOSA MAY, SHEILA MAY Unavailable Unavailable BEINEKE MARCIA, BEINEKE Unavailable Unavailable MARCIA FAUSTINO JAM, FAUSTINO JAM Unavailable Unavailable CONNORS, CONNORS Unavailable Unavailable CONNORS ALL, CONNORS ALL Unavailable Unavailable ILANA MON, Unavailable Unavailable ILANA MON [facility] Unavailable Unavailable SERVICE, [facility] HARRINGTON, HARRINGTON Unavailable Unavailable [...] MAT FAUGHN BUTTS, FAUGHN Unavailable Unavailable BUTTS SANCHEZPAULA JEAN-BAPTISTE, SANCHEZ Unavailable Unavailable JERILYN JR JERMAINE, JERMAINE, Unavailable Unavailable JR DEAN, JR ELZ, Unavailable Unavailable DEAN, JR ELZ HERLINDA, HERLINDA Unavailable Unavailable HERLINDA LYNDA, HERLNIDA Unavailable Unavailable LYNDA RICK, RICK Unavailable Unavailable RICK ARTI, RICK Unavailable Unavailable ARTI GEILE, GEILE Unavailable Unavailable [facility] YULI RHO, YULI Unavailable Unavailable RHO GUNDUMALLA GOP, Unavailable Unavailable GUNDUMALLA GOP JUDD LAURA, JUDD Unavailable Unavailable LAURA [facility]NA [facility], Unavailable Unavailable DIANNA SCO [facility] Unavailable Unavailable INC, [facility] Unavailable Unavailable HOSPITAL P, [facility] FELTON KOKI, FELTON KOKI Unavailable Unavailable [place] [facility]HA, Unavailable Unavailable [place] [facility] Unavailable Unavailable IMAGING [facility], [facility] KILPELA, KILPELA Unavailable Unavailable KILPELA JEA, KILPELA Unavailable Unavailable JEA ERNIETELIC ROBERT, Unavailable Unavailable KOSTELIC ROBERT [place] [facility] [...] SOTINGEANU MARCIA [facility] Unavailable Unavailable EMERGENCY PHYS, [facility] EMERGENCY PHYS [facility] Unavailable Unavailable EMERGENCY SERV, [facility] EMERGENCY SERV [facility] Unavailable Unavailable PHYSICIAN SERVI, [facility] PHYSICIAN SERVI MOTLEY, MOTLEY Unavailable Unavailable MOTLEY RAY, MOTLEY Unavailable Unavailable RAY [facility], Unavailable Unavailable [facility] WALKER FOR, WALKER Unavailable Unavailable FOR WELLS, WELLS Unavailable Unavailable WELLS SCO, WELLS SCO Unavailable Unavailable ROSAURA BRANDY, ROSAURA Unavailable Unavailable BRANDY FIDENCIO, FIDENCIO Unavailable Unavailable Purpose Continuity of Care Document - 10-01-2014 through 2016 Problems Code Diagnosis DOS Provider Status N12 TUBULO-INTE 02-26-2017 A Kaelyn HERRERA RST PSC NEPHRITIS NOT SPEC ACUTE/CHRON R109 UNSPECIFIED 02-26-2017 Lynn HERRERA ABDOMINAL PSC PAIN N3001 ACUTE 02-20-2017 Lynn HERRERA CYSTITIS PSC WITH HEMATURIA R300 DYSURIA 02-20-2017 Lynn HERRERA MD PSC N3000 ACUTE 02-19-2017 [facility] CYSTITIS PHYSICIANS, WITHOUT PLLC HEMATURIA N390 URINARY 02-19-2017 [facility] TRACT PHYSICIANS, INFECTION PLLC SITE NOT SPECIFIED N200 CALCULUS OF 01-26-2017 [facility] N3090 CYSTITIS 01-26-2017 [facility] UNSPECIFIED PHYSICIANS, WITHOUT PLLC HEMATURIA M5442 LUMBAGO 01-08-2017 ANNELIESE WITH HOME SCIATICA MEDICAL LEFT SIDE EQUIPME [id number] STRAIN 01-08-2017 ANNELIESE MUSCLE HOME FASCIA & MEDICAL TENDON LOW EQUIPME BACK INITIAL I10 ESSENTIAL 12-22-2016 [facility] HYPERTENSIO INC N M545 LOW BACK 12-22-2016 [facility] Z720 TOBACCO USE 12-22-2016 [facility] INC N1330 UNSPECIFIED 11-01-2016 [facility] HYDRONEPHRO INC SIS N23 UNSPECIFIED 11-01-2016 [facility] RENAL PHYSICIANS, COLIC PLLC R112 NAUSEA WITH 10-26-2016 [facility] VOMITING ROSY UNSPECIFIED HOLDINGS K921 MELENA 10-25-2016 A Kaelyn HERRERA MD PSC G07362 UNSPECIFIED 10-25-2016 A Kaelyn HERRERA OVARIAN PSC CYST UNSPECIFIED SIDE J65515 UNSPECIFIED 10-22-2016 A Kaelyn HERRERA OVARIAN PSC CYST RIGHT SIDE R1031 RIGHT LOWER 10-22-2016 A Kaelyn GARCIA MD PSC PAIN E785 HYPERLIPIDE 10-21-2016 [facility] UNSPECIFIED INC G66873 PERSONAL 10-21-2016 [facility] OF [facility] URINARY INC TRACT INFECTIONS B81300 PERSONAL 10-21-2016 [facility] URINARY INC CALCULI D78977 ELEVATED 09-18-2016 A Kaelyn HERRERA WHITE BLOOD [...] OTHER PHYSICIANS, NONSPECIFIC PLLC SKIN ERUPTION Z791 SKILLED NURSING 09-08-2016 [facility] NON-STEROID INC AL&ANTI-INF LAMMATORIES B95904 OTHER LONG 09-08-2016 [facility] TERM [facility] CURRENT INC DRUG THERAPY Z888 ALLERGY 09-08-2016 [facility] STATUS OTH [facility] RX MEDS & INC BIOLOG SUBSTANC STS R1032 LEFT LOWER 08-10-2016 [facility] ASS B86 SCABIES 07-04-2016 [facility] PHYSICIANS, PLLC R030 ELEVATED 06-03-2016 [facility] BLOOD-PRESS N EMERGENCY URE READING SERV WITHOUT DX HTN R0600 DYSPNEA 06-03-2016 [facility] [place] UNSPECIFIED RADIOLOGY R079 CHEST PAIN 06-03-2016 [facility] [place] UNSPECIFIED RADIOLOGY R1013 EPIGASTRIC 06-03-2016 [facility] PAIN N EMERGENCY SERV J40 BRONCHITIS 03-12-2016 A Kaelyn HECK MD PSC SPECIFIED ACUTE OR CHRONIC R05 COUGH 03-12-2016 A Kaelyn HERRERA MD PSC E860 DEHYDRATION 02-22-2016 [facility] PHYSICIANS, PLLC R1011 RIGHT UPPER 02-22-2016 [facility] PHYSICIANS, PAIN PLLC R1010 UPPER 02-21-2016 A Kaelyn HERRERA ABDOMINAL PSC PAIN UNSPECIFIED R1110 VOMITING 02-21-2016 A Kaelyn HERRERA UNSPECIFIED PSC R16834 OTHER 02-14-2016 A Kaelyn HERRERA INSTABILITY PSC LEFT ANKLE B85616 PAIN IN 02-14-2016 A Kaelyn HERRERA LEFT KNEE PSC G69060 PAIN IN 02-09-2016 A Kaelyn HERRERA RIGHT LEG PSC L60340 PAIN IN 02-09-2016 A Kaelyn HERRERA LEFT LEG PSC N16944 EFFUSION 02-07-2016 [facility] LEFT [facility]KLE [facility] C90700 PAIN IN 02-07-2016 [facility] LEFT [facility]KLE [facility] IM[facility]ING ASS M7989 OTHER 02-07-2016 [facility] SPECIFIED MEDICAL SOFT TISSUE IMAGING ASS DISORDERS G8929 OTHER 01-26-2016 A Kaelyn HERRERA CHRONIC PSC PAIN N289 DISORDER OF 01-09-2016 [facility] UNSPECIFIED R000 TACHYCARDIA 01-09-2016 [place] [facility] UNSPECIFIED FOUNDATION N209 URINARY 12-31-2015 [facility] CALCULUS PHYSICIANS, UNSPECIFIED PLLC G07238 PAIN IN 11-10-2015 [facility] RIGHT [facility] M37059H SPRAIN 11-10-2015 [facility] UNSPEC PHYSICIANS, LIGAMENT PLLC RIGHT ANKLE INITIAL ENC I11787L UNSPECIFIED 11-10-2015 [facility] INJURY [facility]ICAL RIGHT ANKLE IMAGING ASS INITIAL ENCOUNTER R319 HEMATURIA 10-07-2015 [facility] UNSPECIFIED PHYSICIANS, PLLC N8320 UNSPECIFIED 08-05-2015 [facility] OVARIAN N EMERGENCY CYSTS PHYS N8329 OTHER 08-05-2015 [facility] OVARIAN RADIOLOGY CYSTS R1030 LOWER 08-04-2015 [facility] ABDOMINAL PHYSICIANS, PAIN PLLC UNSPECIFIED M549 DORSALGIA 06-26-2015 [facility] UNSPECIFIED PHYSICIANS, PLLC Z960 PRESENCE OF 06-16-2015 [facility]OGEN[facility] COMMUNTI[facility] IMPLANTS HOSPITA N201 CALCULUS OF 05-20-2015 [facility] URETER PHYSICIANS, PLLC E669 OBESITY 05-17-2015 [facility] UNSPECIFIED N PHYSICIAN SERVI N132 HYDRONEPHRO 05-17-2015 [facility] SIS W/RENAL N PHYSICIAN & URETRL SERVI CALCULOUS OBST R6510 SYS INFLM 05-17-2015 [facility] RSPN SYND N PHYSICIAN NON-INF SERVI ORIG NO AC ORGN DYSF Z6841 BODY MASS 05-16-2015 [facility] INDEX BMI COMMUNTIY 40.0-44.9 HOSPITA ADULT J208 ACUTE 04-28-2015 [facility] BRONCHITIS PHYSICIANS, DUE TO PLLC OTHER SPEC ORGANISMS K859 ACUTE 04-05-2015 [facility] PANCREATITI N EMERGENCY S PHYS UNSPECIFIED R9431 ABNORMAL 04-05-2015 [facility] ELECTROCARD COMMUNTIY IOGRAM HOSPITA 5920 CALCULUS OF 02-26-2015 [facility]NEY RADIOLOGY 5990 URINARY 02-26-2015 [facility] TRACT N EMERGENCY INFECTION PHYS SITE NOT SPECIFIED 96882 NAUSEA 02-26-2015 [facility] COMMUNTIY HOSPITA 70791 DIARRHEA 02-26-2015 [facility] COMMUNTIY HOSPITA 75821 ABDOMINAL 02-26-2015 [facility] RIGHT N EMERGENCY LOWER PHYS QUADRANT V1301 PERSONAL 02-26-2015 [facility] HISTORY OF COMMUNTIY URINARY HOSPITA CALCULI V1582 PERS HX 02-26-2015 [facility] TOBACCO USE COMMUNTIY PRESENTING HOSPITA [facility] 4019 UNSPECIFIED 02-19-2015 [facility] ESSENTIAL [facility] HYPERTENSIO INC N 5275 SIALOLITHIA 02-19-2015 [facility] SIS PHYSICIANS, PLLC 6202 OTHER AND 02-14-2015 [facility] UNSPECIFIED PHYSICIANS, OVARIAN PLLC CYST 58273 ABDOMINAL 12-11-2014 [place] PAIN OTHER MEDICAL SPECIFIED IMAGING ASS SITE 70709 ABDOMINAL 12-10-2014 [facility] PAIN, LEFT [facility] LOWER INC QUADRANT 0419 BACTERIAL 11-26-2014 [place] [facility] UNSPECIFIED FOUNDATION CCE & UNS SITE 95020 UNSPECIFIED 11-26-2014 [facility] PYELONEPHRI TIS V4579 OTHER 11-26-2014 [facility] ABSENCE OF ORGAN 27176 ABDOMINAL 11-21-2014 [facility] [place] PAIN, RADIOLOGY UNSPECIFIED SITE 66691 ABDOMINAL 11-20-2014 [facility], N EMERGENCY PERIUMBILIC PHYS 57769 ABDOMINAL 11-16-2014 [place] PA[facility], MEDICAL EPIGASTRIC IMAGING ASS 03998 NAUSEA WITH 11-14-2014 [facility] VOMITING COMMUNTIY HOSPITA 5589 OTH&UNSPEC 10-31-2014 [facility] NONINFECTIO PHYSICIANS, US PLLC GASTROENTER ITIS&COLITI S 7242 LUMBAGO 10-19-2014 [facility] P 34709 ABDOMINAL 10-19-2014 [facility] PAIN, LEFT [facility] P QUADRANT 5921 CALCULUS OF 10-01-2014 [facility] 7295 PAIN IN 10-01-2014 [facility] SOFT MEDICAL TISSUES OF IMAGING ASS LIMB 8449 SPRAIN&STRA 10-01-2014 [facility] IN OF [facility] UNSPECIFIED INC SITE OF KNEE&LEG 9597 INJURY 10-01-2014 [place] OTHER&UNSPE MEDICAL CIFIED KNEE IMAGING ASS LEG ANKLE&FOOT Medications Na ND Rx Da Fi Fi Am Da Di Ph RX Ph St me C No te ll ll ou ys ag ar # ys at rm s nt no ma ic us Or Da si cy ia de te s n re d NI 16 09 10 20 10 00 [...] NT B HI AN A IN C AM 66 09 10 20 10 00 [...] 5 14 PH CE AR TA MA PR CY NO PH OF EN CY NT 5- HI 32 AN 5 A IN C NI 16 09 10 [...] NT ET HI AN A IN C AM 16 08 09 [...] 5 68 PH CE AR TA MA PR CY NO PH OF EN CY NT 5- HI 32 AN 5 A IN C HY 00 07 08 [address] 40 -1 -[address] ti OC 60 8- 1- 00 00 SI ve OD 12 20 20 49 DE ON 30 17 17 47 -A 5 89 PH CE AR TA MA PR CY NO PH OF EN CY NT [...] BL HI ET AN A IN C PR 00 07 08 30 30 00 EA [...] HI UL AN E A IN C CI 16 05 06 [...] 5 33 PH CE AR TA MA PR CY NO PH OF EN CY NT [...] 47 DE RA 30 16 17 07 PR 5 45 PH DE AR MA 10 [...] Procedure DOS Code Location Performer Comment URINLS 28636 A C KILPELA DIP 7 JAVIER ROMAN STICK/TAB PSC LET REAGNT NON-AUTO MICRSCPY RADEX 07298 [place] KAYLA ABDOMEN 1 7 MEDICAL IMAGING ANTEROPOS ASS TERIOR VIEW LUMB L0627 ANNELIESE VALLESRELL ORTHOSIS 7 HOME HOME SAGIT MEDICAL MEDICAL CNTRL EQUIPME EQUIPME RIGID A&P PANEL PREFAB UNCLASSIF J3490 [facility] IED DRUGS 7 [facility] INC INC RADEX 61515 [facility] SPINE 7 [facility]OS[facility] LUMBOSACR INC INC AL MINIMUM 4 VIEWS URINE 95535 [facility] BUSTAMANTE 7 [facility] TEST INC INC VISUAL COLOR CMPRSN METHS URINE 09387 [facility] BUSTAMANTE 7 [facility] TEST INC INC VISUAL COLOR CMPRSN METHS URNLS DIP 84238 [facility] BUSTAMANTE 7 [facility] STICK/TAB INC INC LET REAGENT AUTO MICROSCOP Y BLOOD 16281 [facility] COUNT 7 [facility] COMPLETE INC INC AUTO&AUTO DIFRNTL WBC COLLECTIO 92150 [facility] N VENOUS 7 [facility] BLOOD INC INC VENIPUNCT URE CULTURE 36401 [facility]AM[facility]TE BACTERIAL 7 [facility] INC INC QUANTTATI VE COLONY COUNT URINE COMPREHEN 66326 [facility]USTAMANTE SIVE 7 [facility] H[facility] METABOLIC INC INC PANEL CULTURE 72663 LAB [facility] LAB JANNA BACTERIAL 7 [facility] HOLDING QUANTTATI VE COLONY COUNT URINE URINLS 53611 A Kaelyn ROSALES DIP 7 JAVIER ROMAN STICK/TAB PSC LET REAGNT NON-AUTO MICRSCPY BLOOD 43751 [facility]USTAM[facility]TE COUNT 7 [facility] COMPLETE INC INC AUTO&AUTO DIFRNTL WBC OBSERVATI 44234 Lynn RICHTER ON CARE 7 JAVIER ROMAN DISCHARGE PSC MANAGEMEN T UNCLASSIF J3490 [facility] IED DRUGS 7 [facility] INC INC UNCLASSIF J3490 [facility] IED DRUGS 7 [facility] INC INC INITIAL 74248 A Kaelyn RICHTER OBSERVATI 7 JAVIER ROMAN ON PSC CARE/DAY 70 MINUTES H[facility]PITAL G0378 [facility] OBSERVATI 7 [facility] ON INC INC SERVICE PER HOUR BASIC 36465 [facility] METABOLIC 7 [facility] PANEL INC INC CALCIUM TOTAL BLOOD 36951 [facility] COUNT 7 [facility] COMPLETE INC INC AUTO&AUTO DIFRNTL WBC BLOOD 33008 [facility]AM[facility]TE COUNT 7 MEM H[facility]OS[facility] COMPLETE INC INC AUTO&AUTO DIFRNTL WBC GROUND A0425 [facility] AMBULANCE PER SERVICE SERVICE STATUTE MILE AMBULANCE A0429 NOAH ZAMORA SERVICE 7 AMBULANCE AMBULANCE BLS SERVICE SERVICE EMERGENCY TRANSPORT THERAPEUT 72065 [facility] IC 7 [facility] INJECTION [place] [address] [facility] INFUSION 7 [facility] THERAPY/P INC INC ROPHYLAXI S /DX 1ST TO 1 HR URNLS DIP 42398 [facility] BUSTAMANTE 7 [facility] STICK/TAB INC INC LET REAGENT AUTO MICROSCOP Y HOSPITAL G0378 [facility] OBSERVATI 7 [facility] ON INC INC SERVICE PER HOUR COMPREHEN 85875 [facility] SIVE 7 [facility] METABOLIC INC INC PANEL UNCLASSIF J3490 [facility] IED DRUGS 7 [facility] INC INC CULTURE 87108 [facility] BACTERIAL 7 [facility] [place] [address] [facility] [place]OL[place] ABDOMEN & 7 RADIOLOGY PELVIS W/CONTRAS T MATERIAL THERAPEUT 09243 [facility] IC 7 [facility] H[facility] PROPHYLAC INC INC TIC/DX INJECTION SUBQ/IM BLOOD 58893 [facility] COUNT 7 [facility] COMPLETE INC INC AUTO&AUTO DIFRNTL WBC URINE 23248 [facility] BUSTAMANTE 7 [facility] TEST INC INC VISUAL COLOR CMPRSN METHS URNLS DIP 79563 [facility] BUSTAMANTE 7 [facility] STICK/TAB INC INC LET REAGENT AUTO MICROSCOP Y CULTURE 88240 [facility] B[facility] BACTERIAL 7 [facility] INC INC QUANTTATI VE COLONY COUNT URINE COLLECTIO 01734 [facility] B[facility] N VENOUS 7 [facility] H[facility] BLOOD INC INC VENIPUNCT URE UNCLASSIF J3490 [facility] IED DRUGS 7 [facility] INC INC COMPREHEN 96105 [facility] B[facility] SIVE 7 [facility] [place] [address] [facility] B[facility] ABDOMEN & 7 [facility] PELVIS [place] [address] [facility] AMYLASE 7 [place] [address] [facility] LIPASE 7 [facility] INC INC URINLS 42225 Lynn RICK DIP 7 JAVIER ROMAN STICK/TAB PSC LET REAGNT NON-AUTO MICRSCPY UNCLASSIF J3490 [facility] IED DRUGS 7 [facility] H[facility] INC INC COLLECTIO 24316 A C MERLINE N VENOUS 7 JAVIER ROMAN BLOOD PSC VENIPUNCT URE URINLS 02813 A C MERLINE DIP 7 JAVIER ROMAN STICK/TAB PSC LET REAGNT NON-AUTO MICRSCPY BLOOD 03133 A C MERLINE COUNT 7 JAVIER ROMAN COMPLETE PSC AUTO&[place] [address] [facility] [place] ABDOMEN & 7 RADIOLOGY PELVIS W/O CONTRAST MATERIAL CULTURE 27689 [facility] BACTERIAL 7 [facility] INC INC QUANTTATI VE COLONY COUNT URINE UNCLASSIF J3490 [facility] IED DRUGS 7 [facility] INC INC URNLS DIP 67354 [facility] BUSTAMANTE 7 [facility] STICK/TAB INC [place] [address] [facility] ABDOMEN & 7 MEDICAL PELVIS IMAGING W/O ASS CONTRAST MATERIAL CULTURE 58418 [facility] BACTERIAL 6 N N COMMUNTIY COMMUNTIY QUANTTATI HOSPITA HOSPITA VE COLONY COUNT URINE URNLS DIP 79194 [facility] 6 N N STICK/TAB COMMUNTIY COMMUNTIY LET HOSPITA HOSPITA REAGENT AUTO MICROSCOP Y THERAPEUT 65560 [facility] IC 6 N N PROPHYLAC COMMUNTIY COMMUNTIY TIC/DX HOSPITA HOSPITA INJECTION SUBQ/IM ECG 41940 [facility] ROUTINE 6 SAMANTHA ECG EMERGENCY W/LEAST SERV 12 LDS I&R ONLY RADIOLOGI 75463 [facility] [place] FIDENCIO C 6 RADIOLOGY EXAMINATI ON CHEST SINGLE VIEW FRONTAL UNCLASSIF J3490 [facility] IED DRUGS 6 [facility] INC INC CULTURE 72065 [facility] BACTERIAL 6 [facility]OS[facility] INC INC QUANTTATI VE COLONY COUNT URINE URNLS DIP 06271 [facility] BUSTAMANTE 6 [facility] STICK/TAB INC INC LET REAGENT AUTO MICROSCOP Y URINE 52375 [facility] BUSTAMANTE 6 [facility] HOSP TEST INC [place] [address] [facility] [place] ABDOMEN & 6 RADIOLOGY III KISHA PELVIS W/O CONTRAST MATERIAL OBSERVATI 19988 A Kaelyn RICHTER SHAYY ON/INPATI 6 JAVIER ROMAN ENT PSC HOSPITAL CARE [address] [place] [address] [facility] JULES[facility]LA ABDOMEN & 6 MEDICAL WOLFGANG PELVIS IMAGING W/O ASS CONTRST 1/> BODY RE INJECTION J2550 A Kaelyn RICK 6 [facility]IER [facility] PROMETHAZ PSC INE HCL UP TO 50 MG URINLS 93024 A Kaelyn RICK DIP 6 [facility] STICK/TAB PSC LET REAGNT NON-AUTO MICRSCPY THERAPEUT 91782 A Kaelyn RICK IC 6 J[facility]IER [facility] PROPHYLAC PSC TIC/DX INJECTION SUBQ/IM COMPREHEN 54155 [facility] BUSTAMANTE SIVE 6 [facility] [address] [facility] BUSTAM[facility]TE AMYLASE 6 [facility]OSP INC INC COLLECTIO 89776 DIANNA BUSTAMANTE N VENOUS 6 [facility] [place] [address] DI[facility] BUSTAMANTE LIPASE 6 [facility]OS[facility] INC INC BLOOD 41755 [facility] BUSTAMANTE COUNT 6 [facility] COMPLETE INC INC AUTO&AUTO DIFRNTL WBC URINLS 24500 A Kaelyn RICK DIP 6 [facility]IER [facility] STICK/TAB [place] [address] DI[facility]NA BUSTAMANTE RETROPERI 6 [facility] TONEAL INC [place] REAL TIME W/[place] [address] [place] CONNORS ALL RETROPERI 6 MEDICAL TONEAL IMAGING REAL TIME ASS W/IMAGE LIMITED MRI ANY 49549 DI[facility] BUSTAMANTE JT LOWER 6 [facility] HOSP EXTREM INC INC W/O CONTRAST MATRL THERAPEUT 08638 A Kaelyn RICK IC 6 J[facility]IER [facility] PROPHYLAC PSC TIC/DX INJECTION SUBQ/IM URINLS 64801 A C MERLINE DIP 6 J[facility]IER [facility] STICK/TAB PSC LET REAGNT NON-AUTO MICRSCPY INJECTION J0696 A C MERLINE 6 J[facility]IER [facility] CEFTRIAXO PSC NE SODIUM PER 250 MG BLOOD 30980 A C RICK COUNT 6 J[facility]IER [facility] COMPLETE PSC AUTO&AUTO DIFRNTL WBC BLOOD 59501 A C MERLINE COUNT 6 [facility]IER [facility] COMPLETE PSC AUTO&AUTO DIFRNTL WBC INJECTION J0696 A C RICK 6 JAVIER CHI CEFTRIAXO PSC NE SODIUM PER 250 MG URINLS 69679 A C RICK DIP 6 [facility]IER [facility] STICK/TAB PSC LET REAGNT NON-AUTO MICRSCPY THERAPEUT 25693 A C MERLINE IC 6 J[facility]IER [facility] PROPHYLAC PSC TIC/DX INJECTION SUBQ/IM THERAPEUT 27493 A C MERLINE IC 6 J[facility]IER [facility]I PROPHYLAC PSC TIC/DX INJECTION SUBQ/IM URINLS 47931 A C MERLINE DIP 6 J[facility]IER [facility] STICK/TAB PSC LET REAGNT NON-AUTO MICRSCPY SUSCEPTIB 92698 LAB JANNA LAB JANNA LTY STDY 6 ROSY ROSY ANTIMICRB HOLDINGS HOLDINGS IAL MICRO/AGA R DILUTJ INJECTION J0696 A C MERLINE 6 JAVIER CHI CEFTRIAXO PSC NE SODIUM PER 250 MG INJECTION J2550 A C A C 6 JAVIER HERRERA MD PROMETHAZ PSC PSC INE HCL UP TO 50 MG CULTURE 64403 LAB JANNA LAB JANNA BCT 6 ROSY ROSY ISOL&PRSM HOLDINGS HOLDINGS PTV ID ISOLATE EA URINE CULTURE 73777 LAB JANNA LAB JANNA BACTERIAL 6 ROSY ROSY HOLDINGS HOLDINGS QUANTTATI VE COLONY COUNT URINE CUL BACT 85384 LAB JANNA LAB JANNA AEROBIC 6 ROSY ROSY ADDL HOLDINGS [place] [address] [place] CONNORS ALL ABDOMEN & 6 MEDICAL PELVIS IMAGING W/O ASS CONTRAST MATERIAL RADIOLOGI 80703 [place] KAYLA Art 6 MEDICAL WOLFGANG EXAMINATI IMAGING ON ANKLE ASS 2 VIEWS RADEX 04259 [facility] ANKLE 6 [facility] COMPLETE INC INC MINIMUM 3 VIEWS RADEX 92321 ROBERTA CONNORS ALL SPINE 6 MEDICAL LUMBOSACR IMAGING AL 2/3 ASS VIEWS RADEX 17820 DI[facility]NA BUSTAMANTE SPINE 6 [facility] H[facility] HOS[facility] LUMBOSACR INC INC AL MINIMUM 4 VIEWS URINLS 86584 A C KILPELA DIP 6 JAVIER ROMAN JEA STICK/TAB PSC LET REAGNT NON-AUTO MICRSCPY RADEX 14373 [place] MERHAR ANKLE 6 MEDICAL GAR COMPLETE SERV MINIMUM 3 FOUNDATIO VIEWS N RADEX 94602 [place] MERHAR FOOT 6 MEDICAL GAR COMPLETE SERV MINIMUM [address] [place] [address] [facility] [place] JAM ABDOMEN & 6 RADIOLOGY PELVIS W/O CONTRAST MATERIAL URINLS 27874 A C RICK DIP 6 JAVIER ROMAN ARTI STICK/TAB [place] [address] [place] PA[place] RETROPERI 6 MEDICAL BAR TONEAL SERV REAL TIME FOUNDATIO W/[place] [address] [facility] [place] SCALF RITO ABDOMEN & 6 RADIOLOGY PELVIS W/[place] [address] ROBERTA BEINEKE ABDOMEN & 6 MEDICAL MARCIA PELVIS IMAGING W/O ASS CONTRAST MATERIAL COMPREHEN 38250 DI[facility]NA BUSTAMANTE SIVE 6 [facility] METABOLIC INC INC PANEL COLLECTIO 49540 DIANNA BUSTAMANTE N VENOUS 6 [facility]OS[facility] BLOOD INC INC VENIPUNCT URE CULTURE 71902 [facility] BUSTAMAN[facility] BACTERIAL 6 [facility] INC INC QUANTTATI VE COLONY COUNT URINE UNCLASSIF J3490 [facility]UST[facility]TE IED DRUGS 6 [facility] INC INC BLOOD 95207 [facility]NA [facility]USTAM[facility]TE COUNT 6 [facility] COMPLETE INC INC AUTO&AUTO DIFRNTL WBC URNLS DIP 73249 [facility] 6 [facility] STICK/TAB INC INC LET REAGENT AUTO MICROSCOP Y THERAPEUT 39953 [facility] IC 6 [facility] INJECTION INC INC IV PUSH EACH NEW DRUG THER 33484 DIANNA BUSTAMANTE PROPH/DX 6 [facility] NJX IV INC INC PUSH SINGLE/1S T SBST/[place] [address] ROBERTA KAYLA ABDOMEN & 6 MEDICAL [place] PELVIS IMAGING W/O ASS CONTRAST MATERIAL RADIOLOGI 53360 ROBERTA CONNORS ALL C 6 MEDICAL EXAMINATI IMAGING ON [place] [address] [place] [address] ROBERTA BEINEKE ABDOMEN & 6 MEDICAL [place]ARC[place] PELVIS IMAGING W/[place] [address] [facility] [place] YULI ABDOMEN & 6 RADIOLOGY RHO PELVIS W/[place] [address] [facility] [place] F[place] ABDOMEN & 6 RADIOLOGY CAR PELVIS W/O CONTRAST MATERIAL UNCLASSIF J3490 DIANNA BUSTAMANTE IED DRUGS 6 [facility] INC INC COLLECTIO 05345 DIANNA BUSTAMANTE N VENOUS 6 [facility] BLOOD INC INC VENIPUNCT URE THERAPEUT 94889 DIANNA BUST[facility]ANTE IC 6 [facility] PROPHYLAC INC INC TIC/DX INJECTION SUBQ/IM BASIC 91947 DIANNA BUSTAMANTE METABOLIC 6 [facility] PANEL INC INC CALCIUM TOTAL BLOOD 34109 DIANNA [facility]UST[facility]TE COUNT 6 [facility] COMPLETE INC INC AUTO&AUTO DIFRNTL WBC BLOOD 26422 [facility] COUNT 6 N N COMPLETE COMMUNTIY COMMUNTIY AUTO&AUTO HOSPITA HOSPITA DIFRNTL WBC COMPREHEN 10804 [facility] SIVE 6 N N METABOLIC COMMUNTIY COMMUNTIY PANEL HOSPITA HOSPITA SUSCEPTIB 62558 [facility] LTY STDY 6 N N ANTIMICRB COMMUNTIY COMMUNTIY IAL HOSPITA HOSPITA MICRO/AGA R DILUTJ THERAPEUT 14348 [facility] IC 6 N N INJECTION COMMUNTIY COMMUNTIY IV [place] [address] [facility] INFUSION 6 N N THERAPY/P COMMUNTIY COMMUNTIY ROPHYLAXI HOSPITA HOSPITA S /DX 1ST TO 1 HR URNLS DIP 48998 [facility] 6 N N STICK/TAB COMMUNTIY COMMUNTIY LET HOSPITA HOSPITA REAGENT AUTO MICROSCOP Y URINE 21405 [facility] 6 N N TEST COMMUNTIY COMMUNTIY VISUAL HOSPITA HOSPITA COLOR CMPRSN METHS COLLECTIO 59719 [facility] N VENOUS 6 N N BLOOD COMMUNTIY COMMUNTIY VENIPUNCT HOSPITA HOSPITA URE CULTURE 54736 [facility] BACTERIAL 6 N N COMMUNTIY COMMUNTIY QUANTTATI HOSPITA HOSPITA VE COLONY COUNT URINE CUL BACT 75876 [facility] AEROBIC 6 N N ADDL COMMUNTIY COMMUNTIY METHS HOSP[place] [address] [facility] [place] ABDOMEN & 6 RADIOLOGY RAY PELVIS W/[place] [address] [facility] INFUSION 6 N N HYDRATION COMMUNTIY COMMUNTIY EACH [place] [address] [facility] INFUSION 6 N N THER COMMUNTIY COMMUNTIY PROPH HOSPITA HOSPITA ADDL SEQUENTIA L [place] [address] [facility] INFUSION 5 N N HYDRATION COMMUNTIY COMMUNTIY EACH HOSPITA HOSPITA ADDITIONA L HOUR INJECTION J2550 [facility] 5 N N PROMETHAZ COMMUNTIY COMMUNTIY INE HCL HOSPITA HOSPITA UP TO 50 MG COMPREHEN 98607 [facility] SIVE 5 N N METABOLIC COMMUNTIY COMMUNTIY PANEL HOSPITA HOSPITA CULTURE 20200 [facility] BACTERIAL 5 N N COMMUNTIY COMMUNTIY [facility] HOSPITA VE COLONY COUNT URINE THER 73388 [facility] PROPH/DX 5 N N NJX EA COMMUNTIY COMMUNTIY SEQL IV HOSPITA HOSPITA PUSH SBST/DRUG FAC COLLECTIO 59895 [facility] N VENOUS 5 N N BLOOD COMMUNTIY COMMUNTIY VENIPUNCT HOSPITA HOSPITA URE BLOOD 33129 [facility] COUNT 5 N N COMPLETE COMMUNTIY COMMUNTIY AUTO&AUTO HOSPITA HOSPITA DIFRNTL WBC URNLS DIP 65154 [facility] 5 N N STICK/TAB COMMUNTIY COMMUNTIY LET HOSPITA [place] [address] [facility] INFUSION 5 N N THERAPY/P COMMUNTIY COMMUNTIY ROPHYLAXI HOSPITA HOSPITA S /DX 1ST TO 1 HR THERAPEUT 17559 [facility] IC 5 N N INJECTION COMMUNTIY COMMUNTIY IV PUSH HOSPITA HOSPITA EACH NEW DRUG INJECTION J2270 [facility] MORPHINE 5 N N SULFATE COMMUNTIY COMMUNTIY UP TO [address] [place] [address] [facility] LIPASE 5 N N COMMUNTIY COMMUNTIY HOSPITA HOSPITA RADEX 97006 DIANNA BUSTAMANTE ABDOMEN 1 5 [facility] INC ANTEROPOS TERIOR VIEW INJECTION J2550 [facility] 5 N N PROMETHAZ COMMUNTIY COMMUNTIY INE HCL HOSPITA HOSPITA UP TO 50 MG INJ J2543 [facility] PIPERACIL 5 N N MEGHAN COMMUNTIY COMMUNTIY SOD/TAZOB HOSPITA HOSPITA ACTAM SOD 1 G/0.125 G COLLECTIO 96249 [facility] N VENOUS 5 N N BLOOD COMMUNTIY COMMUNTIY VENIPUNCT HOSPITA HOSPITA URE OBSERVATI 81396 [facility] ON CARE 5 SAMANTHA A GOP DISCHARGE PHYSICIAN SERVI MANAGEMEN T THER 47895 [facility] PROPH/DX 5 N N NJX EA COMMUNTIY COMMUNTIY SEQL IV HOSPITA HOSPITA PUSH SBST/DRUG FAC INJECTION J2704 [facility] PROPOFOL 5 N N 10 MG COMMUNTIY COMMUNTIY HOSPITA HOSPITA BASIC 91681 [facility] METABOLIC 5 N N PANEL COMMUNTIY COMMUNTIY CALCIUM HOSPITA HOSPITA TOTAL PROTHROMB 42691 [facility] IN TIME 5 N N COMMUNTIY COMMUNTIY HOSPITA HOSPITA INJECTION J1100 [facility] 5 N N DEXAMETHO COMMUNTIY COMMUNTIY SONE HOSPITA HOSPITA SODIUM PHOSPHATE 1 MG INJECTION J1170 [facility] 5 N N HYDROMORP COMMUNTIY COMMUNTIY RON UP HOSPITA HOSPITA TO 4 MG INJECTION J2001 [facility] 5 N N LIDOCAINE COMMUNTIY COMMUNTIY HCL HOSPITA HOSPITA INTRAVENO US INFUS 10 MG BLOOD 13270 [facility] COUNT 5 N N HEMOGLOBI COMMUNTIY COMMUNTIY N HOSPITA HOSPITA BLOOD 30822 [facility] COUNT 5 N N HEMATOCRI COMMUNTIY COMMUNTIY T HOSPITA HOSPITA COMPREHEN 69383 [facility] SIVE 5 N N METABOLIC COMMUNTIY COMMUNTIY PANEL HOSPITA HOSPITA CALCULUS 41733 [facility] QUANTITAT 5 N N DEVYN COMMUNTIY COMMUNTIY CHEMICAL HOSPITA HOSPITA URNLS DIP 01913 [facility] 5 N N STICK/TAB COMMUNTIY COMMUNTIY LET HOSPITA HOSPITA REAGENT AUTO MICROSCOP Y BLOOD 98161 [facility] COUNT 5 N N COMPLETE COMMUNTIY COMMUNTIY AUTO&AUTO HOSPITA HOSPITA DIFRNTL WBC ANES 48670 [facility] TRURL 5 ANESTHESI JERILYN FRAGMNTJ A GROUP MANJ&/RMV PS L URETERAL CALCULUS URINE 72254 [facility] 5 N N TEST COMMUNTIY COMMUNTIY VISUAL HOSPITA HOSPITA COLOR CMPRSN METHS RINGERS J7120 [facility] LACTATE 5 N N INFUSION COMMUNTIY COMMUNTIY UP TO HOSPITA HOSPITA 1000 CC INJECTION J1170 [facility] 5 N N HYDROMORP COMMUNTIY COMMUNTIY RON UP HOSPITA HOSPITA TO 4 MG CYSTO 00505 [facility] W/INSERT 5 N N URETERAL COMMUNTIY [place] [address] [facility] INFUSION 5 N N THERAPY/P COMMUNTIY COMMUNTIY ROPHYLAXI HOSPITA HOSPITA S /DX 1ST TO 1 HR TOBACCO 67193 [facility] USE 5 N N CESSATION COMMUNTIY COMMUNTIY HOSPITA HOSPITA INTERMEDI ATE 3-10 MINUTES GUIDE C1769 [facility] WIRE 5 N N COMMUNTIY COMMUNTIY HOSPITA HOSPITA STENT C2617 [facility] NON-COR 5 N N TEMPORARY COMMUNTIY COMMUNTIY WITHOUT HOSPITA HOSPITA DELIVERY SYSTEM INJECTION J0696 [facility] 5 N N CEFTRIAXO COMMUNTIY COMMUNTIY NE SODIUM HOSPITA HOSPITA PER 250 MG THER 67830 [facility] PROPH/DX 5 N N NJX EA COMMUNTIY COMMUNTIY SEQL IV HOSPITA HOSPITA PUSH SBST/DRUG FAC INFUSION J7030 [facility] NORMAL 5 N N SALINE COMMUNTIY COMMUNTIY SOLUTION HOSPITA HOSPITA 1000 CC CULTURE 15496 [facility] BACTERIAL 5 N N COMMUNTIY COMMUNTIY QUANTTATI HOSPITA HOSPITA VE COLONY COUNT URINE COLLECTIO 12284 [facility] N VENOUS 5 N N BLOOD COMMUNTIY COMMUNTIY VENIPUNCT HOSPITA HOSPITA URE INJ J2543 [facility] PIPERACIL 5 N N MEGHAN COMMUNTIY COMMUNTIY SOD/TAZOB HOSPITA HOSPITA ACTAM SOD 1 G/0.125 G INJECTION J2550 [facility] 5 N N PROMETHAZ COMMUNTIY COMMUNTIY INE HCL HOSPITA HOSPITA UP TO 50 MG DILATION 35418 [facility] NEPHROSTO 5 ALPESH ALPESH MY/URETER /URETHRA RS&I SBSQ 59915 [facility] OBSERVATI 5 SAMANTHA A GOP ON PHYSICIAN CARE/DAY SERVI 35 MINUTES CYSTO 16256 [facility] W/URETERO 5 N N SCOPY COMMUNTIY COMMUNTIY W/RMVL/[place] [address] [facility] [place] SCALF RITO ABDOMEN & 5 RADIOLOGY PELVIS W/[place] [address] [place]AYLA ABDOMEN & 5 [facility] PELVIS IMAGING W/O ASS CONTRAST MATERIAL COMPREHEN 49990 [facility] SIVE 5 N N METABOLIC COMMUNTIY COMMUNTIY PANEL HOSPITA HOSPITA INTRODUCT 15228 [facility] ION 5 SAMANTHA JERILYN NEEDLE/IN EMERGENCY TRACATHET PHYS [facility] G0378 [facility] OBSERVATI 5 N N ON COMMUNTIY COMMUNTIY SERVICE HOSPITA HOSPITA PER HOUR INITIAL 01378 [facility] OBSERVATI 5 SAMANTHA A GOP ON PHYSICIAN CARE/DAY SERVI 70 MINUTES INJ J2543 [facility] PIPERACIL 5 N N MEGHAN COMMUNTIY COMMUNTIY SOD/TAZOB HOSPITA HOSPITA ACTAM SOD 1 G/0.125 G INJECTION J2550 [facility] 5 N N PROMETHAZ COMMUNTIY COMMUNTIY INE HCL HOSPITA HOSPITA UP TO 50 MG COLLECTIO 22356 [facility] N VENOUS 5 N N BLOOD COMMUNTIY COMMUNTIY VENIPUNCT HOSPITA HOSPITA URE THROMBOPL 50266 [facility] ASTIN 5 N N TIME COMMUNTIY COMMUNTIY PARTIAL HOSPITA HOSPITA PLASMA/WH OLE BLOOD CULTURE 12716 [facility] BACTERIAL 5 N N COMMUNTIY COMMUNTIY QUANTTATI HOSPITA HOSPITA VE COLONY COUNT URINE INFUSION J7030 [facility] NORMAL 5 N N SALINE COMMUNTIY COMMUNTIY SOLUTION HOSPITA HOSPITA 1000 CC THER 42355 [facility] PROPH/DX 5 N N NJX EA COMMUNTIY COMMUNTIY SEQL IV HOSPITA HOSPITA PUSH SBST/DRUG FAC THERAPEUT 59683 [facility] IC 5 N N INJECTION COMMUNTIY COMMUNTIY IV PUSH HOSPITA HOSPITA EACH NEW DRUG INJECTION J2270 [facility] MORPHINE 5 N N SULFATE COMMUNTIY COMMUNTIY UP TO 10 HOSPITA HOSPITA MG CULTURE 76588 [facility] BACTERIAL 5 N N BLOOD COMMUNTIY COMMUNTIY AEROBIC HOSPITA HOSPITA W/ID ISOLATES INJECTION J1170 [facility] 5 N N HYDROMORP COMMUNTIY COMMUNTIY RON UP HOSPITA HOSPITA TO 4 MG THERAPEUT 85711 [facility] IC 5 N N PROPHYLAC COMMUNTIY COMMUNTIY TIC/DX HOSPITA HOSPITA INJECTION SUBQ/IM URNLS DIP 36207 [facility] 5 N N STICK/TAB COMMUNTIY COMMUNTIY LET HOSPITA HOSPITA REAGENT AUTO MICROSCOP Y BLOOD 80641 [facility] COUNT 5 N N COMPLETE COMMUNTIY COMMUNTIY AUTO&AUTO HOSPITA HOSPITA DIFRNTL WBC URNLS DIP 42097 [facility] BUSTAMANTE 5 [facility] STICK/TAB INC INC LET REAGENT AUTO MICROSCOP Y URINE 47914 [facility] BUSTAMANTE 5 [facility] TEST INC INC VISUAL COLOR CMPRSN METHS CULTURE 91428 [facility] BUSTAMANTE BACTERIAL 5 [facility] INC INC QUANTTATI VE COLONY COUNT URINE UNCLASSIF J3490 DIANNA BUSTAMANTE IED DRUGS 5 [facility] INC INC INFUSION J7030 [facility] NORMAL 5 N N SALINE COMMUNTIY COMMUNTIY SOLUTION HOSPITA HOSPITA 1000 CC CULTURE 54780 [facility] BACTERIAL 5 N N COMMUNTIY COMMUNTIY QUANTTATI HOSPITA HOSPITA VE COLONY COUNT URINE COLLECTIO 71349 [facility] N VENOUS 5 N N BLOOD COMMUNTIY COMMUNTIY VENIPUNCT HOSPITA HOSPITA URE INJECTION J2550 [facility] 5 N N PROMETHAZ COMMUNTIY COMMUNTIY INE HCL HOSPITA HOSPITA [place] 50 [place] [address] [facility] INFUSION 5 N N HYDRATION COMMUNTIY COMMUNTIY EACH HOSPITA HOSPITA ADDITIONA L HOUR COMPREHEN 59577 [facility] SIVE 5 N N METABOLIC COMMUNTIY COMMUNTIY PANEL HOSPITA HOSPITA ECG 40393 [facility] ROUTINE 5 N N ECG COMMUNTIY COMMUNTIY W/LEAST HOSPITA HOSPITA 12 [facility] TRCG ONLY W/O I&R URNLS DIP 37042 [facility] 5 N N STICK/TAB COMMUNTIY COMMUNTIY LET HOSPITA HOSPITA REAGENT AUTO MICROSCOP Y URINE 75183 [facility] 5 N N TEST COMMUNTIY COMMUNTIY VISUAL HOSP[place] [address] [facility] INFUSION 5 N N THERAPY/P COMMUNTIY COMMUNTIY ROPHYLAXI HOSPITA HOSPITA S /DX 1ST TO 1 HR ECG 46437 [facility] ROUTINE 5 SAMANTHA - YORBA ECG EMERGENCY PAT W/LEAST PHYS 12 LDS I&R ONLY THERAPEUT 89819 [facility] IC 5 N N INJECTION COMMUNTIY COMMUNTIY IV PUSH HOSPITA HOSPITA EACH NEW DRUG INJECTION J2270 [facility] MORPHINE 5 N N SULFATE COMMUNTIY COMMUNTIY UP TO [address] [place] [address] [facility] LIPASE 5 N N COMMUNTIY COMMUNTIY HOSPITA HOSPITA BLOOD 78987 [facility] COUNT 5 N N SMEAR COMMUNTIY COMMUNTIY MCRSCP HOSPITA HOSPITA W/MNL DIFRNTL WBC COUNT BLOOD 52077 [facility] COUNT 5 N N COMPLETE COMMUNTIY COMMUNTIY [place] [address] [facility] LIPASE 5 N N COMMUNTIY COMMUNTIY HOSPITA HOSPITA INJECTION J2270 [facility] MORPHINE 5 N N SULFATE COMMUNTIY COMMUNTIY UP TO 10 HOSPITA HOSPITA MG THER 02414 [facility] PROPH/DX 5 N N NJX IV COMMUNTIY COMMUNTIY PUSH HOSPITA HOSPITA SINGLE/1S T SBST/DRUG URNLS DIP 56517 [facility] 5 N N STICK/TAB COMMUNTIY COMMUNTIY LET HOSPITA HOSPITA REAGENT AUTO MICROSCOP Y URINE 46163 [facility] 5 N N TEST COMMUNTIY COMMUNTIY VISUAL HOSPITA HOSPITA COLOR CMPRSN METHS BLOOD 61305 [facility] COUNT 5 N N COMPLETE COMMUNTIY COMMUNTIY AUTO&AUT[place] [address] [facility] JUDD ABDOMEN & 5 RADIOLOGY LAURA PELVIS W/O CONTRAST MATERIAL COMPREHEN 47359 [facility] SIVE 5 N N METABOLIC COMMUNTIY [place] [address] [facility] INFUSION 5 N N HYDRATION COMMUNTIY COMMUNTIY EACH HOSPITA HOSPITA ADDITIONA L HOUR COLLECTIO 38666 [facility] N VENOUS 5 N N BLOOD COMMUNTIY COMMUNTIY VENIPUNCT HOSPITA HOSPITA URE INFUSION J7030 [facility] NORMAL 5 N N SALINE COMMUNTIY COMMUNTIY SOLUTION HOSPITA HOSPITA 1000 CC CULTURE 42223 [facility] BACTERIAL 5 N N COMMUNTIY COMMUNTIY QUANTTATI HOSPITA HOSPITA VE COLONY COUNT URINE UNCLASSIF J3490 DIANNA BUSTAMANTE IED DRUGS 5 [place] [address] [place]LA ABDOMEN & 5 MEDICAL [facility] PELVIS IMAGING W/[place] [address] DIANNA BUSTAMANTE AMYLASE 5 [facility] INC INC COMPREHEN 85327 [facility]USTAMANTE SIVE 5 [facility] [address] DIANNA BUSTAMANTE LIPASE 5 [facility] INC INC BLOOD 11660 DIANNA BUSTAMANTE COUNT 5 [facility] COMPLETE INC INC AUTO&AUTO DIFRNTL WBC URNLS DIP 65881 DI[facility] BUSTAMANTE 5 [facility] STICK/TAB INC INC LET REAGENT AUTO MICROSCOP Y URINE 96774 [facility] BUSTAMANTE 5 [facility] TEST INC INC VISUAL COLOR CMPRSN METHS CULTURE 42634 [facility] BUSTAMANTE BACTERIAL 5 [facility] INC INC QUANTTATI VE COLONY COUNT URINE UNCLASSIF J3490 DIANNA BUSTAMANTE IED DRUGS 5 [facility] INC INC COMPREHEN 22610 DIANNA DIANNA SIVE 5 [facility] METABOLIC INC INC PANEL BLOOD 04462 DIANNA PALACIOSON COUNT 5 [facility] COMPLETE INC INC AUTO&[place] [address] DIANNA BUSTAMANTE LIPASE 5 [facility] INC INC URNLS DIP 80105 DI[facility]NA DIANNA 5 [facility] STICK/TAB INC INC LET REAGENT AUTO MICROSCOP Y URINE 76163 DIAN[facility] BUSTAMANTE 5 [facility] TEST INC INC VISUAL COLOR CMPRSN METHS COLLECTIO 80120 DIANNA BUSTAMANTE N VENOUS 5 [facility] [place] [address] DIANNA BUSTAMANTE ABDOMEN & 5 [facility] PELVIS INC INC W/O CONTRAST MATERIAL URINE 28800 DIANNA BUSTAMANTE 5 [facility] TEST INC INC VISUAL COLOR CMPRSN METHS URNLS DIP 43360 DI[facility] BUSTAMANTE 5 [facility] STICK/TAB INC INC LET REAGENT AUTO MICROSCOP Y INJECTION J1956 [facility] 5 Y Y LEVOFLOXA [facility] LETY 250 MG INJECTION J2270 [facility] MORPHINE 5 Y Y SULFATE [facility] UP TO 10 MG INJECTION J1200 [facility] 5 Y Y DIPHENHYD [facility] RAMINE HCL UP TO 50 MG THER 90943 [facility] PROPH/DX 5 Y Y NJX EA [facility] SEQL IV PUSH SBST/DRUG FAC INFUSION J7030 [facility] NORMAL 5 Y Y SALINE [facility] SOLUTION 1000 CC COMPREHEN 43789 [facility] SIVE 5 Y Y METABOLIC [facility] PANEL INJECTION J2765 [facility] 5 Y Y METOCLOPR [facility] AMIDE HCL UP TO 10 MG INJECTION J2270 [facility] MORPHINE 5 Y Y SULFATE [facility] UP [place] 10 [place] [address] [facility] INFUSION 5 Y Y THERAPY/P HOSPITAL [facility] ROPHYLAXI S /DX 1ST TO 1 HR THERAPEUT 35229 [facility] IC 5 Y Y INJECTION [facility] IV PUSH EACH NEW DRUG URNLS DIP 07033 [facility] 5 Y Y STICK/TAB [facility] LET REAGENT AUTO MICROSCOP Y URINE 17099 [facility] 5 Y Y TEST [facility] HOSPITAL [place] [address] [facility] LIPASE 5 Y Y HOSPITAL HOSPITAL BLOOD 51058 [facility] COUNT 5 Y Y COMPLETE [facility] [place] [address] [place] KOSTELIC ABDOMEN & 5 RADIOLOGY ROBERT PELVIS W/[place] [address] DIANNA BUSTAMANTE ABDOMEN & 5 [facility] PELVIS INC INC W/O CONTRAST MATERIAL UNCLASSIF J3490 DIANNA BUSTAMANTE IED DRUGS 5 [facility] INC INC THROMBOPL 52181 DIANNA BUSTAMANTE ASTIN 5 [facility] TIME INC INC PARTIAL PLASMA/WH OLE BLOOD CULTURE 23820 [facility] BUSTAMANTE BACTERIAL 5 [facility] INC INC QUANTTATI VE COLONY COUNT URINE URNLS DIP 13407 [facility] BUSTAMANTE 5 [facility] STICK/TAB INC INC LET REAGENT AUTO MICROSCOP Y COMPREHEN 89582 [facility] B[facility] SIVE 5 [facility] [address] [facility] BUSTAMANTE AMYLASE 5 [facility] INC INC BLOOD 77769 DI[facility] BUSTAMANTE COUNT 5 [facility] COMPLETE INC INC AUTO&[place] [address] [facility] BUSTAMANTE INFUSION 5 [facility] THERAPY/P INC INC ROPHYLAXI S /DX 1ST TO 1 HR PROTHROMB 71583 DIANNA BUSTAMANTE IN TIME 5 [facility] INC INC THERAPEUT 55956 [facility] BUSTAMANTE IC 5 [facility] INJECTION INC [place] [address] DIANNA BUSTAMANTE LIPASE 5 [place] [address] [facility] LIPASE 5 N N COMMUNTIY COMMUNTIY HOSPITA HOSPITA THERAPEUT 51124 [facility] IC 5 N N INJECTION COMMUNTIY COMMUNTIY IV PUSH HOSPITA HOSPITA EACH NEW DRUG INJECTION J2270 [facility] MORPHINE 5 N N SULFATE COMMUNTIY COMMUNTIY UP [place] [address] [place] [address] [facility] ABDOMEN & 5 N N PELVIS COMMUNTIY COMMUNTIY W/CONTRAS HOSPITA HOSPITA T MATERIAL BLOOD 83184 [facility] COUNT 5 N N COMPLETE COMMUNTIY COMMUNTIY AUTO&AUTO HOSP[place] [address] [facility] AMYLASE 5 N N COMMUNTIY COMMUNTIY HOSPITA HOSPITA LOCM Q9967 [facility] [phone] 5 N N MG/ML COMMUNTIY COMMUNTIY IODINE HOSPITA HOSPITA CONCENTRA TION PER ML URNLS DIP 13897 [facility] 5 N N STICK/TAB COMMUNTIY COMMUNTIY LET HOSPITA HOSPITA REAGENT AUTO MICROSCOP Y URINE 58074 [facility] 5 N N TEST COMMUNTIY COMMUNTIY VISUAL HOSPITA HOSPITA COLOR CMPRSN METHS CULTURE 79504 [facility] BACTERIAL 5 N N COMMUNTIY COMMUNTIY QUANTTATI HOSPITA HOSPITA VE COLONY COUNT URINE COMPREHEN 86698 [facility] SIVE 5 N N METABOLIC COMMUNTIY COMMUNTIY PANEL HOSPITA HOSPITA INJECTION J2550 [facility] 5 N N PROMETHAZ COMMUNTIY COMMUNTIY INE HCL HOSPITA HOSPITA UP TO 50 MG COMPREHEN 21084 [facility] BUSTAMANTE SIVE 5 [facility] METABOLIC INC INC PANEL CULTURE 16431 [facility] BUSTAMANTE BACTERIAL 5 [facility] INC INC QUANTTATI VE COLONY COUNT URINE UNCLASSIF J3490 DIANNA BUSTAMANTE IED DRUGS 5 [facility] INC INC URINE 01630 DI[facility] BUSTAMANTE 5 [facility] TEST INC INC VISUAL COLOR CMPRSN METHS URNLS DIP 48962 DIANNA PALACIOSON 5 [facility] STICK/TAB INC INC LET REAGENT AUTO MICROSCOP Y BLOOD 57356 [facility] BUSTAMANTE COUNT 5 [facility] COMPLETE INC INC AUTO&[place] [address] DIANNA BUSTAMANTE AMYLASE 5 [place] [address] DIANNA BUSTAMANTE LIPASE 5 [facility] INC INC URNLS DIP 36903 DIANNA PALACIOSON 5 [facility] STICK/TAB INC INC LET REAGENT AUTO MICROSCOP Y URINE 67080 [facility] BUSTAMANTE 5 [facility] TEST INC INC VISUAL COLOR CMPRSN METHS UNCLASSIF J3490 DIANNA BUSTAMANTE IED DRUGS 5 [place] [address] DIANNA BUSTAMANTE ABDOMEN & 5 [facility] PELVIS INC INC W/O CONTRAST MATERIAL UNCLASSIF J3490 DIANNA BUSTAMANTE IED DRUGS 5 [facility] INC INC THER 72195 DIANNA BUSTAMANTE PROPH/DX 5 [facility] NJX IV INC INC PUSH SINGLE/1S T SBST/DRUG THERAPEUT 19558 DIANNA BUSTAMANTE IC 5 [facility] INJECTION INC INC IV PUSH EACH NEW DRUG RADIOLOGI 55666 DIANNA BUSTAMANTE C 5 [facility] EXAMINATI INC INC ON TIBIA & [place] [address] [place] [address] [facility] ABDOMEN & 5 [facility] PELVIS IMAGING W/O ASS CONTRAST MATERIAL Encounters Encounter Start End Date Code Location Performer Type Date OFFICE 63944 Lynn MOSS 7 7 JAVIER ROMAN T VISIT PSC 10 MINUTES OFFICE 57601 Lynn MOSS 7 7 JAVIER ROMAN T VISIT PSC 15 MINUTES EMERGENCY 07737 [facility] P[facility] DEPT 7 7 PHYSICIAN VISIT S, PLLC HIGH SEVERITY& THREAT [facility]J EMERGENCY 30590 LÁZARO DEAN DEPT 7 7 PHYSICIAN JR VISIT S, [facility] HIGH SEVERITY& THREAT [facility] DIANNA - 7 7 [facility] OUTPATIEN INC T EMERGENCY 63693 LÁZARO PATE 7 7 PHYSICIAN DEPARTMEN S, [facility] T VISIT MODERATE SEVERITY EMERGENCY 19211 DIANNA 7 7 [facility] DEPARTMEN INC T VISIT LOW/MODER SEVERITY HOSPITAL DI[facility] - 7 7 [facility] OUTPATIEN INC T EMERGENCY 69349 DIANNA 7 7 [facility] DEPARTMEN INC T VISIT LOW/MODER SEVERITY EMERGENCY 29331 LÁZARO DEAN 7 7 PHYSICIAN JR DEPARTMEN S, [facility] T VISIT HIGH/URGE NT SEVERITY OFFICE 62203 A Kaelyn MOSS 7 7 JAVIER ROMAN T VISIT PSC 25 MINUTES HOSPITAL [facility] - 7 7 [facility] OUTPATIEN INC T EMERGENCY 85019 [facility] DEPT 7 7 [facility] VISIT INC HIGH SEVERITY& THREAT [facility] EMERGENCY 34265 [facility] TERRY DEPT 7 7 SAMANTHA VISIT EMERGENCY HIGH PHYS SEVERITY& THREAT [facility] DIANNA - 7 7 [facility] OUTPATIEN INC T EMERGENCY 74255 LÁZARO WALTON DEPT 7 7 PHYSICIAN U VISIT S, [facility] HIGH [facility]VERITY& THREAT [facility] EMERGENCY 23107 [facility] 7 7 [facility] DEPARTMEN INC T VISIT LOW/MODER SEVERITY OFFICE 63274 Lynn MOSS 7 7 JAVIER ROMAN T VISIT PSC 15 MINUTES OFFICE 92031 [facility] MOSS 7 7 [facility] T VISIT 5 INC MINUTES HOSPITAL [facility] - 7 7 [facility] OUTPATIEN INC T OFFICE 66518 Lynn MOSS 7 7 JVAIER ROMAN T VISIT PSC 15 MINUTES EMERGENCY 49932 [facility] 7 7 SMAANTHA DEPARTMEN EMERGENCY T VISIT PHYS HIGH/URGE NT SEVERITY EMERGENCY 52913 [facility] 7 7 [facility] DEPARTMEN INC T VISIT LOW/MODER SEVERITY EMERGENCY 73356 LÁZARO PATE 7 7 PHYSICIAN DEPARTMEN S, [facility] T VISIT HIGH/URGE NT SEVERITY HOSPITAL [facility] - 7 7 [facility] OUTPATIEN INC T EMERGENCY 25844 [facility] 7 7 SAMANTHA DEPARTMEN EMERGENCY T VISIT PHYS HIGH/URGE NT SEVERITY EMERGENCY 71559 LÁZARO WALTON DEPT 7 7 PHYSICIAN U VISIT S, [facility] HIGH SEVERITY& THREAT [facility] EMERGENCY 01962 LÁZARO PATE 7 7 PHYSICIAN DEPARTMEN S, [facility] T VISIT HIGH/URGE NT SEVERITY EMERGENCY 15880 [facility] 6 6 SAMANTHA DEPARTMEN EMERGENCY T VISIT PHYS HIGH/URGE NT SEVERITY EMERGENCY 18350 [facility] 6 6 N DEPARTMEN COMMUNTIY T VISIT HOSPITA MODERATE SEVERITY [facility]OSPITAL [facility] - 6 6 N OUTPATIEN COMMUNTIY T HOSPITA EMERGENCY 00274 [facility] 6 6 SAMANTHA VISIT EMERGENCY HIGH SERV SEVERITY& THREAT [facility] HOSPITAL DI[facility] - 6 6 [facility] OUTPATIEN INC T EMERGENCY 97790 LÁZARO WALTON 6 6 PHYSICIAN U DEPARTMEN S, [facility] T VISIT HIGH/URGE NT SEVERITY EMERGENCY 90296 [facility] 6 6 [facility] INC T VISIT LIMITED/M INOR PROB EMERGENCY 43468 [facility] DIANNA DEPT 6 6 SAMANTHA SCO VISIT EMERGENCY HIGH PHYS SEVERITY& THREAT FUNCJ OFFICE 95597 Lynn RICHTER SHAYY OUTPATIEN 6 6 JAVIER ROMAN T VISIT PSC 15 MINUTES EMERGENCY 05351 LÁZARO WALTON DEPT 6 6 PHYSICIAN Valery CA [facility] HIGH SEVERITY& [facility]8913 A C RICK OUTPATIEN 6 6 JAVIER [facility] T VISIT PSC 15 MINUTES HOSPITAL [facility] - 6 6 [facility] OUTPATIEN INC T OFFICE 30428 A C RICK OUTPATIEN 6 6 JAVIER [facility] T VISIT PSC 15 MINUTES OFFICE 72747 A C RICK OUTPATIEN 6 6 JAVIER [facility] T VISIT PSC 15 MINUTES OFFICE 27935 A C CONNIE OUTPATIEN 6 6 JAVIER LOGAN T VISIT PSC 15 MINUTES OFFICE 66933 A C MERLINE OUTPATIEN 6 6 JAVIER [facility] T VISIT PSC 15 MINUTES HOSPITAL [facility] - 6 6 [facility] OUTPATIEN INC T OFFICE 82067 A C RICK OUTPATIEN 6 6 JAVIER [facility]I T VISIT PSC 15 MINUTES OFFICE 35536 A C RICK OUTPATIEN 6 6 JAVIER [facility] T VISIT PSC 15 MINUTES OFFICE 87431 A C RICK OUTPATIEN 6 6 JAVIER CHI T VISIT PSC 15 MINUTES EMERGENCY 99623 LÁZARO PATE 6 6 PHYSICIAN LYNDA PARKER [facility] T VISIT HIGH/URGE NT SEVERITY HOSPITAL DINANA - 6 6 [facility] OUTPATIEN INC T OFFICE 30320 A C KILPELA OUTPATIEN 6 6 JAVIER LOGAN T VISIT PSC 25 MINUTES HOSPITAL [facility] - 6 6 [facility] OUTPATIEN INC T OFFICE 78869 A C RICK OUTPATIEN 6 6 JAVIER CHI T VISIT PSC 15 MINUTES EMERGENCY 11791 JOCY BRASHER QUENTIN 6 6 MEDICAL DEPARTMEN SERV T VISIT FOUNDATIO MODERATE N SEVERITY EMERGENCY 46881 [facility] FAUSTINO JAM 6 6 SAMANTHA DEPARTMEN EMERGENCY T VISIT PHYS HIGH/URGE NT SEVERITY OFFICE 65735 A Kaelyn RICK OUTPATIEN 6 6 JAVIER CHI T NEW 30 PSC MINUTES EMERGENCY 57975 JOCY TAM 6 6 MEDICAL MAT DEPARTMEN SERV T VISIT FOUNDATIO HIGH/URGE N NT SEVERITY EMERGENCY 66708 [facility] SOKAN [facility]AB 6 6 SAMANTHA DEPARTMEN EMERGENCY T VISIT PHYS HIGH/URGE NT SEVERITY HOSPITAL [facility] - 6 6 [facility] OUTPATIEN INC T EMERGENCY 61478 [facility] 6 6 [facility] DEPARTMEN INC T VISIT HIGH/URGE NT SEVERITY EMERGENCY 72948 LÁZARO PATE DEPT 6 6 PHYSICIAN LYNDA VISIT S, PLLC HIGH SEVERITY& THREAT FUNCJ EMERGENCY 11485 LÁZARO WALTON 6 6 PHYSICIAN U [facility] T VISIT MODERATE SEVERITY EMERGENCY 17731 [facility] ROSALES SCO 6 6 SAMANTHA DEPARTMEN EMERGENCY T VISIT SERV HIGH/URGE NT SEVERITY EMERGENCY 37203 LÁZARO PATE 6 6 PHYSICIAN LYNDA DEPARTMEN S, PLLC T VISIT HIGH/URGE NT SEVERITY EMERGENCY 59672 LÁZARO WALTON 6 6 PHYSICIAN U [facility] T VISIT MODERATE SEVERITY EMERGENCY 00441 LÁZARO PATE 6 6 PHYSICIAN LYNDA DEPARTMEN S, PLLC T VISIT HIGH/URGE NT SEVERITY EMERGENCY 19631 LÁZARO HOWELL 6 6 PHYSICIAN PHILLIP DEPARTMEN S, PLLC T VISIT HIGH/URGE NT SEVERITY EMERGENCY 52928 [facility] ARNOLD 6 6 SAMANTHA KAEL DEPARTMEN EMERGENCY T VISIT PHYS HIGH/URGE NT SEVERITY EMERGENCY 95507 LÁZARO CHACON DEPT 6 6 PHYSICIAN FOR VISIT S, PLLC HIGH SEVERITY& THREAT FUNJ EMERGENCY 22630 LÁZARO PATE 6 6 PHYSICIAN LYNDA DEPARTMEN S, PLLC T VISIT HIGH/URGE NT SEVERITY EMERGENCY 49694 [facility] 6 6 SAMANTHA BRANDY DEPARTMEN EMERGENCY T VISIT PHYS HIGH/URGE NT SEVERITY EMERGENCY 51968 [facility] 6 6 [facility] DEPARTMEN INC T VISIT MODERATE SEVERITY EMERGENCY 86850 LÁZARO RODAS [facility] 6 6 PHYSICIAN [facility]MEN [facility] HIGH/URGE NT SEVERITY HOSPITAL DIANNA - 6 6 [facility] OUTPATIEN INC T EMERGENCY 20052 [facility] 6 6 N DEPARTMEN COMMUNTIY T VISIT HOSPITA HIGH/URGE NT SEVERITY HOSPITAL [facility] - 6 6 N OUTPATIEN COMMUNTIY T HOSPITA EMERGENCY 88138 [facility] ILANA DEPT 6 6 SAMANTHA MON VISIT EMERGENCY HIGH PHYS SEVERITY& THREAT FUN EMERGENCY 24248 [facility] DEPT 5 5 SAMANTHA VISIT EMERGENCY HIGH SERV SEVERITY& THREAT [facility] HOSPITAL [facility] - 5 5 N OUTPATIEN COMMUNTIY T HOSPITA EMERGENCY 32319 [facility] 5 5 N DEPARTMEN COMMUNTIY T VISIT HOSPITA HIGH/URGE NT SEVERITY HOSPITAL DIANNA - 5 5 [facility] OUTPATIEN INC T EMERGENCY 12396 LÁZARO PATE DEPT 5 5 PHYSICIAN LYNDA VISIT S, PLLC HIGH SEVERITY& THREAT FUNJ EMERGENCY 96338 DI[facility] 5 5 [facility] DEPARTMEN INC T VISIT LOW/MODER SEVERITY HOSPITAL TAMMIE - 5 5 N OUTPATIEN COMMUNTIY T HOSPITA EMERGENCY 85204 [facility] DEPT 5 5 N VISIT COMMUNTIY HIGH HOSPITA SEVERITY& THREAT FUNCJ EMERGENCY 78414 LÁZARO OROZCO 5 5 PHYSICIAN BECKIE [facility] T VISIT MODERATE SEVERITY EMERGENCY 33782 [facility] 5 5 [facility] T VISIT LOW/MODER SEVERITY EMERGENCY 19952 LÁZARO PATE 5 5 PHYSICIAN LYNDA [facility], [facility] T VISIT HIGH/URGE NT SEVERITY HOSPITAL DIANNA - 5 5 [facility] OUTPATIEN [facility] EMERGENCY 87095 DI[facility] 5 5 [facility] T VISIT LOW/MODER SEVERITY EMERGENCY 16350 LÁZARO WALTON 5 5 PHYSICIAN Valery KENNEDY [facility], [facility] T VISIT MODERATE SEVERITY HOSPITAL DIANNA - 5 5 [facility] OUTPATIEN [facility] EMERGENCY 70899 [facility] CELLAROSI DEPT 5 5 SAMANTHA - YORBA VISIT EMERGENCY PAT HIGH PHYS SEVERITY& THREAT FUNCJ EMERGENCY 15472 [facility] 5 5 N [facility]ISIT HOSPITA HIGH/URGE NT SEVERITY [facility] - 5 5 N OUTPATIEN COMMUNTIY T HOSPITA EMERGENCY 08650 [facility] DEPT 5 5 SAMANTHA JERILYN VISIT EMERGENCY HIGH PHYS SEVERITY& THREAT FUNCJ EMERGENCY 82817 [facility] 5 5 N DEPARTMEN COMMUNTIY T VISIT HOSPITA HIGH/URGE NT SEVERITY [facility] - 5 5 N [facility] OUTPATIEN INC T EMERGENCY 65128 DI[facility] 5 5 [facility] T VISIT LIMITED/M INOR PROB EMERGENCY 05341 LÁZARO TELLES 5 5 PHYSICIAN DEPARTMEN S, [facility] T VISIT MODERATE SEVERITY HOSPITAL DIANNA - 5 5 [facility] OUTPATIEN INC T EMERGENCY 54873 LÁZARO PATE DEPT 5 5 PHYSICIAN LYNDA VISIT S, [facility] HIGH SEVERITY& THREAT FUNCJ EMERGENCY 84653 DIANNA 5 5 [facility] DEPARTMEN INC T VISIT LOW/MODER SEVERITY EMERGENCY 76371 DI[facility]NA 5 5 [facility] DEPARTMEN INC T VISIT MODERATE SEVERITY HOSPITAL DIANNA - 5 5 [facility] OUTPATIEN INC T EMERGENCY 90768 LÁZARO OLVERA 5 5 PHYSICIAN DEPARTMEN S, [facility] T VISIT HIGH/URGE NT SEVERITY HOSPITAL DIANNA - 5 5 [facility] OUTPATIEN [facility] T EMERGENCY 32009 DIANNA 5 5 [facility] DEPARTMEN INC T VISIT LOW/MODER SEVERITY EMERGENCY 70153 LÁZARO PATE 5 5 PHYSICIAN LYNDA DEPARTMEN S, [facility] T VISIT HIGH/URGE NT SEVERITY EMERGENCY 69986 [facility] 5 5 [facility] T VISIT HIGH/URGE NT SEVERITY HOSPITAL [facility] - 5 5 [facility] 26380 [facility] 5 5 SAMANTHA PET [facility] EMERGENCY T VISIT PHYS HIGH/URGE NT SEVERITY EMERGENCY 80291 LÁZARO WALTON DEPT 5 5 PHYSICIAN U MARCIA VISIT S, [facility] HIGH SEVERITY& THREAT FUNCJ EMERGENCY 38569 DIANNA 5 5 [facility] DEPARTMEN INC T VISIT HIGH/URGE NT SEVERITY HOSPITAL DIANNA - 5 5 [facility] OUTPATIEN INC T [facility]OSPITAL [facility] - 5 5 N OUTPATIEN COMMUNTIY T HOSPITA EMERGENCY 62393Lucy LANDIS 5 5 N [facility] T VISIT HOSPITA HIGH/URGE NT SEVERITY EMERGENCY 29712 [facility] DEPT 5 5 SAMANTHA COREY VISIT EMERGENCY HIGH PHYS SEVERITY& THREAT FUNCJ EMERGENCY 56834 LÁZARO PATE 5 5 [facility], [facility] T VISIT HIGH/URGE NT SEVERITY EMERGENCY 72552 DIANNA 5 5 [facility] T VISIT LOW/MODER SEVERITY HOSPITAL DIANNA - 5 5 [facility] OUTPATIEN INC T EMERGENCY 27602 DIANNA PATE 5 5 [facility] T VISIT P MODERATE SEVERITY HOSPITAL DIANNA - 5 5 [facility] OUTPATIEN INC T EMERGENCY 60467 DIANNA 5 5 [facility] INC T VISIT LOW/MODER SEVERITY EMERGENCY 19710 DIANNA ARBOLEDA 5 5 [facility] T VISIT P LOW/MODER SEVERITY HOSPITAL DIANNA - 5 5 [facility] OUTPATIEN INC T EMERGENCY 98332 DIANNA 5 5 [facility] T VISIT HIGH/URGE NT SEVERITY EMERGENCY 65127 DIANNA 5 5 [facility] T VISIT LOW/MODER SEVERITY EMERGENCY 13435 DIANNA DEAN, 5 5 [facility] T VISIT P MODERATE SEVERITY HOSPITAL DIANNA - 5 5 [facility] OUTPATIEN INC T
--- OUTSIDE RECORDS SUMMARY | 2017-03-25 13:41 | External Medical Summary Rpt | CCD ---
Author Author , ROBERTO Calvert ROBERTO Address Unknown Phone [email or web address] Team Providers Care Mercerizer Machine Operator Name Role Phone A Kaelyn HERRERA MD PSC, Lynn Unavailable Unavailable Kaelyn HERRERA MD PSC LELE MIRANDA Unavailable Unavailable KAEL SOSA MAY, SHEILA MAY Unavailable Unavailable BEINEKE MARCIA, BEINEKE Unavailable Unavailable MARCIA FAUSTINO JAM, FAUSTINO JAM Unavailable Unavailable CONNORS, CONNORS Unavailable Unavailable CONNORS ALL, CONNORS ALL Unavailable Unavailable ILANA MON, Unavailable Unavailable ILANA MON [facility] Unavailable Unavailable SERVICE, [facility] HARRINGTON, HARRINGTON Unavailable Unavailable HARRINGTON JAM, HARRINGTON JAM Unavailable Unavailable FU CAR, FU Unavailable Unavailable CAR VASQUEZ ALPESH, Unavailable Unavailable VASQUEZ ALPESH CELLAROSI - YORBA Unavailable Unavailable PAT, CELLAROSI - YORBA PAT CHESTNUT, CHESTNUT Unavailable Unavailable [facility], Unavailable Unavailable [facility] KAYLA, KAYLA Unavailable Unavailable KAYLA WOLFGANG, Unavailable Unavailable KAYLA WOLFGANG TAM MAT, TMA Unavailable Unavailable MAT FAUGHN BUTTS, FAUGHN Unavailable Unavailable BUTTS SANCHEZPAULA JEAN-BAPTISTE, SANCHEZ Unavailable Unavailable JERILYN JR JERMAINE, JERMAINE, Unavailable Unavailable JR DEAN, JR ELZ, Unavailable Unavailable DEAN, JR ELZ HERLINDA, HERLINDA Unavailable Unavailable HERLINDA LYNDA, HERLINDA Unavailable Unavailable LYNDA RICK, RICK Unavailable Unavailable RICK ARTI, RICK Unavailable Unavailable ARTI GEILE, GEILE Unavailable Unavailable [facility] Unavailable Unavailable [facility], [facility] YULI RHO, YULI Unavailable Unavailable RHO GUNDUMALLA GOP, Unavailable Unavailable GUNDUMALLA GOP JUDD LAURA, JUDD Unavailable Unavailable LAURA [facility], Unavailable Unavailable [facility] Unavailable Unavailable INC, [facility] Unavailable Unavailable HOSPITAL P, [facility] FELTON KOKI, FELTON KOKI Unavailable Unavailable [facility] KISHA, Unavailable Unavailable [facility] Unavailable Unavailable [facility], [facility] KILPELA, KILPELA Unavailable Unavailable [...] SOTINGEANU SOTINGEANU MARCIA, Unavailable Unavailable SOTINGEANU MARCIA [facility] Unavailable Unavailable EMERGENCY PHYS, [facility] Unavailable Unavailable EMERGENCY SERV, [facility] Unavailable Unavailable PHYSICIAN SERVI, [facility] MOTLEY, MOTLEY Unavailable Unavailable MOTLEY RAY, MOTLEY Unavailable Unavailable RAY [facility], Unavailable Unavailable [facility] WALKER FOR, WALKER Unavailable Unavailable FOR [...] SITE NOT SPECIFIED N200 CALCULUS OF 01-26-2017 [facility] N3090 CYSTITIS 01-26-2017 [facility] UNSPECIFIED PHYSICIANS, WITHOUT PLLC HEMATURIA M5442 LUMBAGO 01-08-2017 ANN[facility]IESE WITH HOME SCIATICA MEDICAL LEFT SIDE EQUIPME [id number] STRAIN 01-08-2017 ANN[facility] MUSCLE HOME FASCIA & MEDICAL TENDON LOW EQUIPME BACK INITIAL I10 ESSENTIAL 12-22-2016 [facility] HYPERTENSIO INC N M545 LOW BACK 12-22-2016 [place] [facility] Z720 TOBACCO USE 12-22-2016 [facility] INC N1330 UNSPECIFIED 11-01-2016 [facility] HYDRONEPHRO INC SIS N23 UNSPECIFIED 11-01-2016 [facility] RENAL PHYSICIANS, COLIC PLLC R112 NAUSEA WITH 10-26-2016 [facility] VOMITING ROSY UNSPECIFIED HOLDINGS K921 MELENA 10-25-2016 A Kaelyn HERRERA MD PSC P70890 UNSPECIFIED 10-25-2016 A Kaelyn HERRERA OVARIAN PSC CYST UNSPECIFIED SIDE W59899 UNSPECIFIED 10-22-2016 A Kaelyn HERRERA OVARIAN PSC CYST RIGHT SIDE R1031 RIGHT LOWER 10-22-2016 A Kaelyn GARCIA MD PSC PAIN E785 HYPERLIPIDE 10-21-2016 [facility] UNSPECIFIED INC Y69196 PERSONAL 10-21-2016 [facility] URINARY INC TRACT INFECTIONS Z73856 PERSONAL 10-21-2016 [place] URINARY INC CALCULI Z14680 ELEVATED 09-18-2016 A Kaelyn HERRERA WHITE BLOOD [...] OTHER PHYSICIANS, NONSPECIFIC PLLC SKIN ERUPTION Z791 HALF-WAY 09-08-2016 [facility] NON-STEROID INC AL&ANTI-INF LAMMATORIES F73891 OTHER LONG 09-08-2016 [facility] TERM [facility] CURRENT INC DRUG THERAPY Z888 ALLERGY 09-08-2016 [facility] STATUS OTH [facility] RX MEDS & INC BIOLOG SUBSTANC STS R1032 LEFT LOWER 08-10-2016 [place] [facility] B86 SCABIES 07-04-2016 [facility] PHYSICIANS, PLLC R030 ELEVATED 06-03-2016 [facility] BLOOD-PRESS N EMERGENCY URE READING SERV WITHOUT DX HTN R0600 DYSPNEA 06-03-2016 [facility] [place] UNSPECIFIED RADIOLOGY R079 CHEST PAIN 06-03-2016 [facility] [place] UNSPECIFIED RADIOLOGY R1013 EPIGASTRIC 06-03-2016 [facility] PAIN N EMERGENCY SERV J40 BRONCHITIS 03-12-2016 A Kaelyn HECK MD PSC SPECIFIED ACUTE OR CHRONIC R05 COUGH 03-12-2016 A Kaelyn HERRERA MD PSC E860 DEHYDRATION 02-22-2016 [facility] PHYSICIANS, PLLC R1011 RIGHT UPPER 02-22-2016 [facility] PH[facility], PAIN PLLC R1010 UPPER 02-21-2016 A Kaelyn HERRERA ABDOMINAL PSC PAIN UNSPECIFIED R1110 VOMITING 02-21-2016 A Kaelyn HERRERA UNSPECIFIED PSC A30308 OTHER 02-14-2016 A Kaelyn HERRERA INSTABILITY PSC LEFT ANKLE T49594 PAIN IN 02-14-2016 A Kaelyn HERRERA LEFT KNEE PSC D11858 PAIN IN 02-09-2016 A Kaelyn HERRERA RIGHT LEG PSC R00143 PAIN IN 02-09-2016 A Kaelyn HERRERA LEFT LEG PSC W36146 EFFUSION 02-07-2016 [facility] Z29957 PAIN IN 02-07-2016 [place] LEFT [facility] M7989 OTHER 02-07-2016 [place] SPECIFIED MEDICAL SOFT TISSUE IMAGING ASS DISORDERS G8929 OTHER 01-26-2016 A Kaelyn HERRERA CHRONIC PSC PAIN N289 DISORDER OF 01-09-2016 [facility] UNSPECIFIED R000 TACHYCARDIA 01-09-2016 [place] [facility] UNSPECIFIED FOUNDATION N209 URINARY 12-31-2015 [facility] CALCULUS PHYSICIANS, UNSPECIFIED PLLC G09843 PAIN IN 11-10-2015 [place] [facility] Q00212O SPRAIN 11-10-2015 [facility] UNSPEC PHYSICIANS, LIGAMENT PLLC RIGHT ANKLE INITIAL ENC M71374W UNSPECIFIED 11-10-2015 [place] INJURY [facility]ICAL RIGHT ANKLE IMAGING ASS INITIAL ENCOUNTER R319 HEMATURIA 10-07-2015 [facility] UNSPECIFIED PHYSICIANS, PLLC N8320 UNSPECIFIED 08-05-2015 [facility] OVARIAN N EMERGENCY CYSTS PHYS N8329 OTHER 08-05-2015 [facility]IOLOG[facility] CYSTS R1030 LOWER 08-04-2015 [facility] ABDOMINAL PHYSICIANS, PAIN PLLC UNSPECIFIED M549 DORSALGIA 06-26-2015 [facility] UNSPECIFIED PHYSICIANS, PLLC Z960 PRESENCE OF 06-16-2015 [facility] IMPLANTS HOSPITA N201 CALCULUS OF 05-20-2015 [facility] URETER PHYSICIANS, PLLC E669 OBESITY 05-17-2015 [facility] UNSPECIFIED N PHYSICIAN SERVI N132 HYDRONEPHRO 05-17-2015 [facility] SIS W/RENAL N PHYSICIAN & URETRL SERVI CALCULOUS OBST R6510 SYS INFLM 05-17-2015 [facility] RSPN SYND N PHYSICIAN NON-INF SERVI ORIG NO AC ORGN DYSF Z6841 BODY MASS 05-16-2015 [facility] INDEX BMI COMMUNTIY 40.0-44.9 HOSPITA ADULT J208 ACUTE 04-28-2015 [facility] BRONCHITIS PHYSICIANS, DUE TO PLLC OTHER SPEC ORGANISMS K859 ACUTE 04-05-2015 [facility] PANCREATITI N EMERGENCY S PHYS UNSPECIFIED R9431 ABNORMAL 04-05-2015 [facility] ELECTROCARD COMMUNTI[facility] IOGRAM HOSPITA 5920 CALCULUS OF 02-26-2015 [facility] 5990 URINARY 02-26-2015 [facility] TRACT N EMERGENCY INFECTION PHYS SITE NOT SPECIFIED 23889 NAUSEA 02-26-2015 [facility] COMMUNTIY HOSPITA 31185 DIARRHEA 02-26-2015 [facility] H[facility] 74054 ABDOMINAL 02-26-2015 [facility] RIGHT N EMERGENCY LOWER PHYS QUADRANT V1301 PERSONAL 02-26-2015 [facility] HISTORY OF COMMUNTIY URINARY HOSPITA CALCULI V1582 PERS HX 02-26-2015 [facility] TOBACCO USE COMMUNTIY PRESENTING HOSPITA [facility] 4019 UNSPECIFIED 02-19-2015 [facility]SSENTIAL [facility] HYPERTENSIO INC N 5275 SIALOLITHIA 02-19-2015 [facility] SIS PHYSICIANS, PLLC 6202 OTHER AND 02-14-2015 [facility] UNSPECIFIED PHYSICIANS, OVARIAN PLLC CYST 11496 ABDOMINAL 12-11-2014 [place] [facility] OTHER MEDICAL SPECIFIED IMAGING ASS SITE 13013 ABDOMINAL 12-10-2014 [facility] PAIN, LEFT [facility] LOWER INC QUADRANT 0419 BACTERIAL 11-26-2014 [place] [facility] UNSPECIFIED FOUNDATION CCE & UNS SITE 29849 UNSPECIFIED 11-26-2014 [facility] PYELONEPHRI TIS V4579 OTHER 11-26-2014 [facility] AZLE ABSENCE OF ORGAN 10386 ABDOMINAL 11-21-2014 [facility] [place] PAIN, RADIOLOGY UNSPECIFIED SITE 44405 ABDOMINAL 11-20-2014 [facility], N EMERGENCY PERIUMBILIC PHYS 95372 ABDOMINAL 11-16-2014 [place] [facility], MEDICAL EPIGASTRIC IMAGING ASS 36855 NAUSEA WITH 11-14-2014 [facility] VOMITING COMMUNTIY HOSPITA 5589 OTH&UNSPEC 10-31-2014 [facility] NONINFECTIO PHYSICIANS, US PLLC GASTROENTER ITIS&COLITI S 7242 LUMBAGO 10-19-2014 [facility] P 42743 ABDOMINAL 10-19-2014 [place] PAIN, LEFT [facility] P QUADRANT 5921 CALCULUS OF 10-01-2014 [facility] 7295 PAIN IN 10-01-2014 [place] SOFT MEDICAL TISSUES OF IMAGING ASS LIMB 8449 SPRAIN&STRA 10-01-2014 [place] [facility] UNSPECIFIED INC SITE OF KNEE&LEG 9597 INJURY 10-01-2014 [place] OTHER&UNSPE MEDICAL CIFIED KNEE IMAGING ASS LEG [...] 5 14 PH CE AR TA MA ND CY NO PH OF EN CY NT [...] NT E HI AN A IN C HI 65 09 10 24 6 00 EA [...] 5 68 PH CE AR TA MA ND CY NO PH OF EN CY NT 5- HI 32 AN 5 A IN C HY 00 07 08 [address] 40 -1 -[address] ti OC 60 8- 1- 00 00 SI ve OD 12 20 20 49 DE ON 30 17 17 47 -A 5 89 PH CE AR TA MA ND CY NO PH OF EN CY NT [...] BL HI ET AN A IN C ND 00 07 08 30 30 00 EA [...] 05 06 20 10 00 EA Ac HI 71 -1 -[address] ti [...] 5 33 PH CE AR TA MA ND CY NO PH OF EN CY NT [...] HI 0 AN MG A IN C HI 59 04 04 10 5 00 EA [...] 48 DE ZA 11 17 17 23 HI 0 48 PH IN AR E MA 10 CY MG OF CY TA NT BL HI ET AN A IN C HI 65 04 04 60 30 00 EA [...] 12 01 14 7 00 EA Ac HI 71 -3 -[address] ti [...] 47 DE RA 30 16 17 07 ND 5 45 PH DE AR MA 10 [...] Procedure DOS Code Location Performer Comment URINLS 14812 A C KILPELA DIP 7 JAVIER ROMAN STICK/TAB PSC LET REAGNT NON-AUTO MICRSCPY RADEX 89788 [place] [facility]AYLA ABDOMEN 1 7 MEDICAL IMAGING ANTEROPOS ASS TERIOR VIEW LUMB L0627 ANNELIESE VALLESRELL ORTHOSIS 7 HOME HOME SAGIT MEDICAL MEDICAL CNTRL EQUIPME EQUIPME RIGID A&P PANEL PREFAB UNCLASSIF J3490 [facility] IED DRUGS 7 [facility] INC INC RADEX 24701 [facility] SPINE 7 [facility] LUMBOSACR INC INC AL MINIMUM 4 VIEWS URINE 01921 [facility] BUSTAMANTE 7 [facility] TEST INC INC VISUAL COLOR CMPRSN METHS URINE 74056 [facility] BUSTAMANTE 7 [facility] TEST INC INC VISUAL COLOR CMPRSN METHS URNLS DIP 33980 [facility] BUSTAMANTE 7 [facility] STICK/TAB INC INC LET REAGENT AUTO MICROSCOP Y BLOOD 71347 [facility] COUNT 7 [facility] COMPLETE INC INC AUTO&AUTO DIFRNTL WBC COLLECTIO 86005 [facility] N VENOUS 7 [facility] BLOOD INC INC VENIPUNCT URE CULTURE 33036 [facility] B[facility] BACTERIAL 7 [facility] INC INC QUANTTATI VE COLONY COUNT URINE COMPREHEN 39895 [facility] SIVE 7 [facility] METABOLIC INC INC PANEL CULTURE 16635 [facility] LAB JANNA BACTERIAL 7 [facility] HOLDING QUANTTATI VE COLONY COUNT URINE URINLS 05811 A Kaelyn ROSALES DIP 7 JAVIER ROMAN STICK/TAB PSC LET REAGNT NON-AUTO MICRSCPY BLOOD 01634 [facility] COUNT 7 [facility] COMPLETE INC INC AUTO&AUTO DIFRNTL WBC OBSERVATI 51796 Lynn RICHTER ON CARE 7 J[facility]IER ROMAN DISCHARGE PSC MANAGEMEN T UNCLASSIF J3490 [facility] IED DRUGS 7 [facility] INC INC UNCLASSIF J3490 [facility] B[facility] IED DRUGS 7 [facility] INC INC INITIAL 34503 A Kaelyn RICHTER OBSERVATI 7 [facility] ROMAN ON PSC CARE/DAY 70 MINUT[facility] G0378 [facility] OBSERVATI 7 [facility] ON INC INC SERVICE PER HOUR BASIC 44310 [facility] METABOLIC 7 [facility] PANEL INC INC CALCIUM TOTAL BLOOD 47644 [facility] COUNT 7 [facility] COMPLETE INC INC AUTO&AUTO DIFRNTL WBC BLOOD 16601 [facility] COUNT 7 [facility] COMPLETE INC INC AUTO&AUTO DIFRNTL WBC GROUND A0425 [facility] 7 AMBULANCE AMBULANCE PER SERVICE SERVICE STATUTE MILE AMBULANCE A0429 NOAH ZAMORA SERVICE 7 AMBULANCE AMBULANCE BLS SERVICE SERVICE EMERGENCY TRANSPORT THERAPEUT 39953 [facility] IC 7 [facility] INJECTION [place] [address] [facility] INFUSION 7 [facility] THERAPY/P INC INC ROPHYLAXI S /DX 1ST TO 1 HR URNLS DIP 19138 [facility]TE 7 [facility] STICK/TAB INC INC LET REAGENT AUTO MICROSCOP Y HOSPITAL G0378 [facility] OBSERVATI 7 [facility] ON INC INC SERVICE PER HOUR COMPREHEN 08000 [facility] SIVE 7 [facility] METABOLIC INC INC PANEL UNCLASSIF J3490 [facility] IED DRUGS 7 [facility] INC INC CULTURE 40937 [facility] B[facility] BACTERIAL 7 [facility] [place] [address] [facility] [place] ABDOMEN & 7 RADIOLOGY PELVIS W/CONTRAS T MATERIAL THERAPEUT 37910 [facility] IC 7 [facility] PROPHYLAC INC INC TIC/DX INJECTION SUBQ/IM BLOOD 89632 [facility] COUNT 7 [facility] COMPLETE INC INC AUTO&AUTO DIFRNTL WBC URINE 09845 [facility]TE 7 [facility] TEST INC INC VISUAL COLOR CMPRSN METHS URNLS DIP 18380 [facility]USTAMANTE 7 [facility] STICK/TAB INC INC LET REAGENT AUTO MICROSCOP Y CULTURE 39363 [facility] B[facility] BACTERIAL 7 [facility] INC INC QUANTTATI VE COLONY COUNT URINE COLLECTIO 28059 [facility] B[facility] N VENOUS 7 [facility] BLOOD INC INC VENIPUNCT URE UNCLASSIF J3490 [facility] B[facility] IED DRUGS 7 [facility] INC INC COMPREHEN 92820 [facility] B[facility] SIVE 7 [facility] [place] [address] [facility] B[facility] ABDOMEN & 7 [facility] PELVIS [place] [address] [facility] AMYLASE 7 [place] [address] [facility] LIPASE 7 [facility] INC INC URINLS 48592 Lynn RICK DIP 7 JAVIER ROMAN STICK/TAB PSC LET REAGNT NON-AUTO MICRSCPY UNCLASSIF J3490 [facility] IED DRUGS 7 [facility] INC INC COLLECTIO 68749 A C MERLINE N VENOUS 7 JAVIER ROMAN BLOOD PSC VENIPUNCT URE URINLS 11116 A C MERLINE DIP 7 JAVIER ROMAN STICK/TAB PSC LET REAGNT NON-AUTO MICRSCPY BLOOD 73428 A C MERLINE COUNT 7 JAVIER ROMAN COMPLETE PSC AUTO&[place] [address] [facility] [place] ABDOMEN & 7 RADIOLOGY PELVIS W/O CONTRAST MATERIAL CULTURE 12018 [facility] BACTERIAL 7 [facility] INC INC QUANTTATI VE COLONY COUNT URINE UNCLASSIF J3490 [facility] IED DRUGS 7 [facility] INC INC URNLS DIP 08907 [facility] BUSTAMANTE 7 [facility] STICK/TAB INC [place] [address] [facility] ABDOMEN & 7 MEDICAL PELVIS IMAGING W/O ASS CONTRAST MATERIAL CULTURE 78959 [facility] BACTERIAL 6 N N COMMUNTIY COMMUNTIY QUANTTATI HOSPITA HOSPITA VE COLONY COUNT URINE URNLS DIP 89055 [facility] 6 N N STICK/TAB COMMUNTIY COMMUNTIY LET HOSPITA HOSPITA REAGENT AUTO MICROSCOP Y THERAPEUT 25996 [facility] IC 6 N N PROPHYLAC COMMUNTIY COMMUNTIY TIC/DX HOSPITA HOSPITA INJECTION SUBQ/IM ECG 53058 [facility] ROUTINE 6 SAMANTHA ECG EMERGENCY W/LEAST SERV 12 LDS I&R ONLY RADIOLOGI 03446 [facility] [place] FIDENCIO C 6 RADIOLOGY EXAMINATI ON CHEST SINGLE VIEW FRONTAL UNCLASSIF J3490 [facility] B[facility] IED DRUGS 6 [facility] INC INC CULTURE 02370 [facility] BACTERIAL 6 [facility] INC INC QUANTTATI VE COLONY COUNT URINE URNLS DIP 40502 [facility] BUSTAMANTE 6 [facility] STICK/TAB INC INC LET REAGENT AUTO MICROSCOP Y URINE 11838 [facility] BUSTAMANTE 6 [facility] TEST INC [place] [address] [facility] [place] ABDOMEN & 6 RADIOLOGY III KISHA PELVIS W/O CONTRAST MATERIAL OBSERVATI 25936 A Kaelyn RICHTER SHAYY ON/INPATI 6 [facility] ROMAN ENT PSC HOSPITAL CARE [address] [place] [address] [facility] JULESKAYLA ABDOMEN & 6 MEDICAL WOLFGANG PELVIS IMAGING W/O ASS CONTRST 1/> BODY RE INJECTION J2550 A Kaelyn RICK 6 [facility] PROMETHAZ PSC INE HCL UP TO 50 MG URINLS 59179 A Kaelyn RICK DIP 6 [facility] STICK/TAB PSC LET REAGNT NON-AUTO MICRSCPY THERAPEUT 67809 A Kaelyn RICK IC 6 [facility] PROPHYLAC PSC TIC/DX INJECTION SUBQ/IM COMPREHEN 90639 [facility] SIVE 6 [facility] [place] [address] [facility] AMYLASE 6 [facility] INC INC COLLECTIO 03440 [facility] BUSTAMANTE N VENOUS 6 [facility] [place] [address] [facility] LIPASE 6 [facility] INC INC BLOOD 96809 DI[facility] BUSTAMANTE COUNT 6 [facility] COMPLETE INC INC AUTO&AUTO DIFRNTL WBC URINLS 47846 A Kaelyn RICK DIP 6 [facility] STICK/TAB [place] [address] [facility] RETROPERI 6 [facility] TONEAL INC [place] W/[place] [address] [place] [facility] ALL RETROPERI 6 MEDICAL TONEAL IMAGING REAL TIME ASS W/IMAGE LIMITED MRI ANY 49226 [facility] JT LOWER 6 [facility]OS[facility] EXTREM INC INC W/O CONTRAST MATRL THERAPEUT 19602 A Kaelyn RICK IC 6 [facility] PROPHYLAC PSC TIC/DX INJECTION SUBQ/IM URINLS 03872 A C MERLINE DIP 6 [facility] STICK/TAB PSC LET REAGNT NON-AUTO MICRSCPY INJECTION J0696 A C MERLINE 6 [facility] CEFTRIAXO PSC NE SODIUM PER 250 MG BLOOD 56519 A C RICK COUNT 6 [facility] COMPLETE PSC AUTO&AUTO DIFRNTL WBC BLOOD 93677 A C MERLINE COUNT 6 [facility] COMPLETE PSC AUTO&AUTO DIFRNTL WBC INJECTION J0696 A C RICK 6 [facility]IER [facility] CEFTRIAXO PSC NE SODIUM PER 250 MG URINLS 61518 A C RICK DIP 6 [facility] STICK/TAB PSC LET REAGNT NON-AUTO MICRSCPY THERAPEUT 52549 A C MERLINE IC 6 [facility] PROPHYLAC PSC TIC/DX INJECTION SUBQ/IM THERAPEUT 11396 A C MERLINE IC 6 [facility] PROPHYLAC PSC TIC/DX INJECTION SUBQ/IM URINLS 87592 A C MERLINE DIP 6 [facility] STICK/TAB PSC LET REAGNT NON-AUTO MICRSCPY SUSCEPTIB 00699 LAB [facility] JANNA LTY STDY 6 ROSY ROSY ANTIMICRB HOLDINGS HOLDINGS IAL MICRO/AGA R DILUTJ INJECTION J0696 A C MERLINE 6 JAVIER CH[facility] CEFTRIAXO PSC NE SODIUM PER 250 MG INJECTION J2550 A C A C 6 JAVIER HERRERA MD PROMETHAZ PSC PSC INE HCL UP TO 50 MG CULTURE 16902 LAB [facility]NA LAB JANNA BCT 6 ROSY ROSY ISOL&PRSM HOLDINGS HOLDINGS PTV ID ISOLATE EA URINE CULTURE 16124 [facility] JAN[facility] BACTERIAL 6 ROSY ROSY HOLDINGS HOLDINGS QUANTTATI VE COLONY COUNT URINE CUL BACT 85944 LAB [facility] J[facility] AEROBIC 6 ROSY ROSY ADDL HOLDINGS [place] [address] [place] [facility] ALL ABDOMEN & 6 MEDICAL PELVIS IMAGING W/O ASS CONTRAST MATERIAL RADIOLOGI 74504 [place] [facility]AYLA Art 6 MEDICAL WOLFGANG EXAMINATI IMAGING ON ANKLE ASS 2 VIEWS RADEX 19590 [facility] ANKLE 6 [facility] COMPLETE INC INC MINIMUM 3 VIEWS RADEX 95017 ROBERTA CONNORS ALL SPINE 6 MEDICAL LUMBOSACR IMAGING AL 2/3 ASS VIEWS RADEX 22448 [facility] BUSTAMANTE SPINE 6 [facility] HOS[facility] LUMBOSACR INC INC AL MINIMUM 4 VIEWS URINLS 11402 A C KILPELA DIP 6 JAVIER ROMAN JEA STICK/TAB PSC LET REAGNT NON-AUTO MICRSCPY RADEX 51590 [place] MERHAR ANKLE 6 MEDICAL GAR COMPLETE SERV MINIMUM 3 FOUNDATIO VIEWS N RADEX 02442 [place] MERHAR FOOT 6 MEDICAL GAR COMPLETE SERV MINIMUM [address] [place] [address] [facility] [place] JAM ABDOMEN & 6 RADIOLOGY PELVIS W/O CONTRAST MATERIAL URINLS 17419 A C RICK DIP 6 JAVIER ROMAN ARTI STICK/TAB [place] [address] [place] RETROPERI 6 MEDICAL BAR TONEAL SERV REAL TIME FOUNDATIO W/[place] [address] [facility] [place] SCALF RITO ABDOMEN & 6 RADIOLOGY PELVIS W/[place] [address] ROBERTA BEINEKE ABDOMEN & 6 MEDICAL MARCIA PELVIS IMAGING W/O ASS CONTRAST MATERIAL COMPREHEN 18726 [facility] BUSTAM[facility]TE SIVE 6 [facility] METABOLIC INC INC PANEL COLLECTIO 41469 [facility] BUSTAMANTE N VENOUS 6 [facility] BLOOD INC INC VENIPUNCT URE CULTURE 31710 [facility] B[facility] BACTERIAL 6 [facility]OS[facility] INC INC QUANTTATI VE COLONY COUNT URINE UNCLASSIF J3490 [facility] BUSTAMANTE IED DRUGS 6 [facility]OS[facility] INC INC BLOOD 64808 DI[facility] BUSTAMANTE COUNT 6 [facility] COMPLETE INC INC AUTO&AUTO DIFRNTL WBC URNLS DIP 71072 DI[facility] BUSTAMANTE 6 [facility] STICK/TAB INC INC LET REAGENT AUTO MICROSCOP Y THERAPEUT 13547 [facility] IC 6 [facility] INJECTION INC INC IV PUSH EACH NEW DRUG THER 92785 DIAN[facility] BUSTAMANTE PROPH/DX 6 [facility] NJX IV INC INC PUSH SINGLE/1S T SBST/[place] [address] ROBERTA KAYLA ABDOMEN & 6 MEDICAL [place] PELVIS IMAGING W/O ASS CONTRAST MATERIAL RADIOLOGI 68869 ROBERTA CONNORS ALL C 6 MEDICAL EXAMINATI IMAGING ON ANKLE [place] [address] [place] [address] ROBERTA BEINEKE ABDOMEN & 6 MEDICAL MARCIA PELVIS IMAGING W/[place] [address] [facility] [place] YULI ABDOMEN & 6 RADIOLOGY RHO PELVIS W/[place] [address] [facility] [place] FU ABDOMEN & 6 RADIOLOGY CAR PELVIS W/O CONTRAST MATERIAL UNCLASSIF J3490 DIANNA BUSTAMANTE IED DRUGS 6 [facility] INC INC COLLECTIO 95308 DIANNA BUSTAMANTE N VENOUS 6 [facility] BLOOD INC INC VENIPUNCT URE THERAPEUT 64379 DIANNA [facility]USTAM[facility]TE IC [facility] PROPHYLAC INC INC TIC/DX INJECTION SUBQ/IM BASIC 67977 DIANNA BUSTAMANTE METABOLIC 6 [facility] PANEL INC INC CALCIUM TOTAL BLOOD 71030 [facility] COUNT 6 [facility] COMPLETE INC INC AUTO&AUTO DIFRNTL WBC BLOOD 95984 [facility] COUNT 6 N N COMPLETE COMMUNTIY COMMUNTIY AUTO&AUTO HOSPITA HOSPITA DIFRNTL WBC COMPREHEN 10420 [facility] SIVE 6 N N METABOLIC COMMUNTIY COMMUNTIY PANEL HOSPITA HOSPITA SUSCEPTIB 41299 [facility] LTY STDY 6 N N ANTIMICRB COMMUNTIY COMMUNTIY IAL HOSPITA HOSPITA MICRO/AGA R DILUTJ THERAPEUT 04083 [facility] IC 6 N N INJECTION COMMUNTIY COMMUNTIY IV [place] [address] [facility] INFUSION 6 N N THERAPY/P COMMUNTIY COMMUNTIY ROPHYLAXI HOSPITA HOSPITA S /DX 1ST TO 1 HR URNLS DIP 08731 [facility] 6 N N STICK/TAB COMMUNTIY COMMUNTIY LET HOSPITA HOSPITA REAGENT AUTO MICROSCOP Y URINE 52269 [facility] 6 N N TEST COMMUNTIY COMMUNTIY VISUAL HOSPITA HOSPITA COLOR CMPRSN METHS COLLECTIO 11688 [facility] N VENOUS 6 N N BLOOD COMMUNTIY COMMUNTIY VENIPUNCT HOSPITA HOSPITA URE CULTURE 79092 [facility] BACTERIAL 6 N N COMMUNTIY COMMUNTIY QUANTTATI HOSPITA HOSPITA VE COLONY COUNT URINE CUL BACT 14865 [facility] AEROBIC 6 N N ADDL COMMUNTIY COMMUNTIY METHS [place]OSP[place] [address] [facility] [place] ABDOMEN & 6 RADIOLOGY RAY PELVIS W/[place] [address] [facility] INFUSION 6 N N HYDRATION COMMUNTIY COMMUNTIY EACH [place] [address] [facility] INFUSION 6 N N THER COMMUNTIY COMMUNTIY PROPH HOSPITA HOSPITA ADDL SEQUENT[place] L [place] [address] [facility] INFUSION 5 N N HYDRATION COMMUNTIY COMMUNTIY EACH HOSPITA HOSPITA ADDITIONA L HOUR INJECTION J2550 [facility] 5 N N PROMETHAZ COMMUNTIY COMMUNTIY INE HCL HOSPITA HOSPITA UP TO 50 MG COMPREHEN 71951 [facility] SIVE 5 N N METABOLIC COMMUNTIY COMMUNTIY PANEL HOSPITA HOSPITA CULTURE 34537 [facility] BACTERIAL 5 N N COMMUNTIY COMMUNTIY QUANTTATI HOSPITA HOSPITA VE COLONY COUNT URINE THER 34883 [facility] PROPH/DX 5 N N NJX EA COMMUNTIY COMMUNTIY SEQL IV HOSPITA HOSPITA PUSH SBST/DRUG FAC COLLECTIO 65768 [facility] N VENOUS 5 N N BLOOD COMMUNTIY COMMUNTIY VENIPUNCT HOSPITA HOSPITA URE BLOOD 64312 [facility] COUNT 5 N N COMPLETE COMMUNTIY COMMUNTIY AUTO&AUTO HOSPITA HOSPITA DIFRNTL WBC URNLS DIP 57298 [facility] 5 N N STICK/TAB COMMUNTIY COMMUNTIY LET HOSPITA [place] [address] [facility] INFUSION 5 N N THERAPY/P COMMUNTIY COMMUNTIY ROPHYLAXI HOSPITA HOSPITA S /DX 1ST TO 1 HR THERAPEUT 84464 [facility] IC 5 N N INJECTION COMMUNTIY COMMUNTIY IV PUSH HOSPITA HOSPITA EACH NEW DRUG INJECTION J2270 [facility] MORPHINE 5 N N SULFATE COMMUNTIY COMMUNTIY UP TO 10 [place] [address] [facility] H[facility] LIPASE 5 N N COMMUNTIY COMMUNTIY HOSPITA HOSPITA RADEX 02471 DIANNA BUSTAMANTE ABDOMEN 1 5 [facility] INC ANTEROPOS TERIOR VIEW INJECTION J2550 [facility] 5 N N PROMETHAZ COMMUNTIY COMMUNTIY INE HCL HOSPITA HOSPITA UP TO 50 MG INJ J2543 [facility] PIPERACIL 5 N N MEGHAN COMMUNTIY COMMUNTIY SOD/TAZOB HOSPITA HOSPITA ACTAM SOD 1 G/0.125 G COLLECTIO 38392 [facility] N VENOUS 5 N N BLOOD COMMUNTIY COMMUNTIY VENIPUNCT HOSPITA HOSPITA URE OBSERVATI 01557 [facility] ON CARE 5 SAMANTHA A GOP DISCHARGE PHYSICIAN SERVI MANAGEMEN T THER 73548 [facility] PROPH/DX 5 N N NJX EA COMMUNTIY COMMUNTIY SEQL IV HOSPITA HOSPITA PUSH SBST/DRUG FAC INJECTION J2704 [facility] PROPOFOL 5 N N 10 MG COMMUNTIY COMMUNTIY HOSPITA HOSPITA BASIC 15616 [facility] METABOLIC 5 N N PANEL COMMUNTIY COMMUNTIY CALCIUM HOSPITA HOSPITA TOTAL PROTHROMB 11629 [facility] IN TIME 5 N N COMMUNTIY COMMUNTIY HOSPITA HOSPITA INJECTION J1100 [facility] 5 N N DEXAMETHO COMMUNTIY COMMUNTIY SONE HOSPITA HOSPITA SODIUM PHOSPHATE 1 MG INJECTION J1170 [facility] 5 N N HYDROMORP COMMUNTIY COMMUNTIY ORN UP HOSPITA HOSPITA TO 4 MG INJECTION J2001 [facility] 5 N N LIDOCAINE COMMUNTIY COMMUNTIY HCL HOSPITA HOSPITA INTRAVENO US INFUS 10 MG BLOOD 49464 [facility] COUNT 5 N N HEMOGLOBI COMMUNTIY COMMUNTIY N HOSPITA HOSPITA BLOOD 77233 [facility] COUNT 5 N N HEMATOCRI COMMUNTIY COMMUNTIY T HOSPITA HOSPITA COMPREHEN 42090 [facility] SIVE 5 N N METABOLIC COMMUNTIY COMMUNTIY PANEL HOSPITA HOSPITA CALCULUS 79991 [facility] QUANTITAT 5 N N DEVYN COMMUNTIY COMMUNTIY CHEMICAL HOSPITA HOSPITA URNLS DIP 00315 [facility] 5 N N STICK/TAB COMMUNTIY COMMUNTIY LET HOSPITA HOSPITA REAGENT AUTO MICROSCOP Y BLOOD 22340 [facility] COUNT 5 N N COMPLETE COMMUNTIY COMMUNTIY AUTO&AUTO HOSPITA HOSPITA DIFRNTL WBC ANES 72148 [facility] TRURL 5 ANESTHESI JERILYN FRAGMNTJ A GROUP MANJ&/RMV PS L URETERAL CALCULUS URINE 35820 [facility] 5 N N TEST COMMUNTIY COMMUNTIY VISUAL HOSPITA HOSPITA COLOR CMPRSN METHS RINGERS J7120 [facility] LACTATE 5 N N INFUSION COMMUNTIY COMMUNTIY UP TO HOSPITA HOSPITA 1000 CC INJECTION J1170 [facility] 5 N N HYDROMORP COMMUNTIY COMMUNTIY RON UP HOSPITA HOSPITA TO 4 MG CYSTO 54502 [facility] W/INSERT 5 N N URETERAL COMMUNTIY [place] [address] [facility] INFUSION 5 N N THERAPY/P COMMUNTIY COMMUNTIY ROPHYLAXI HOSPITA HOSPITA S /DX 1ST TO 1 HR TOBACCO 75367 [facility] USE 5 N N CESSATION COMMUNTIY COMMUNTIY HOSPITA HOSPITA INTERMEDI ATE 3-10 MINUTES GUIDE C1769 [facility] WIRE 5 N N COMMUNTIY COMMUNTIY HOSPITA HOSPITA STENT C2617 [facility] NON-COR 5 N N TEMPORARY COMMUNTIY COMMUNTIY WITHOUT HOSPITA HOSPITA DELIVERY SYSTEM INJECTION J0696 [facility] 5 N N CEFTRIAXO COMMUNTIY COMMUNTIY NE SODIUM HOSPITA HOSPITA PER 250 MG THER 85390 [facility] PROPH/DX 5 N N NJX EA COMMUNTIY COMMUNTIY SEQL IV HOSPITA HOSPITA PUSH SBST/DRUG FAC INFUSION J7030 [facility] NORMAL 5 N N SALINE COMMUNTIY COMMUNTIY SOLUTION HOSPITA HOSPITA 1000 CC CULTURE 10020 [facility] BACTERIAL 5 N N COMMUNTIY COMMUNTIY QUANTTATI HOSPITA HOSPITA VE COLONY COUNT URINE COLLECTIO 30094 [facility] N VENOUS 5 N N BLOOD COMMUNTIY COMMUNTIY VENIPUNCT HOSPITA HOSPITA URE INJ J2543 [facility] PIPERACIL 5 N N MEGHAN COMMUNTIY COMMUNTIY SOD/TAZOB HOSPITA HOSPITA ACTAM SOD 1 G/0.125 G INJECTION J2550 [facility] 5 N N PROMETHAZ COMMUNTIY COMMUNTIY INE HCL HOSPITA HOSPITA UP TO 50 MG DILATION 76754 VASQUEZ VASQUEZ NEPHROSTO 5 ALPESH ALPESH MY/URETER /URETHRA RS&I SBSQ 33649 [facility] OBSERVATI 5 SAMANTHA A GOP ON PHYSICIAN CARE/DAY SERVI 35 MINUTES CYSTO 57503 [facility] W/URETERO 5 N N SCOPY COMMUNTIY COMMUNTIY W/RMVL/[place] [address] [place] SCALF RITO ABDOMEN & 5 RADIOLOGY PELVIS W/[place] [address] [place] ABDOMEN & 5 [facility] PELVIS IMAGING W/O ASS CONTRAST MATERIAL COMPREHEN 69099 [facility] SIVE 5 N N METABOLIC COMMUNTIY COMMUNTIY PANEL HOSPITA HOSPITA INTRODUCT 07119 [facility] ION 5 SAMANTHA JERILYN NEEDLE/IN EMERGENCY TRACATHET [facility]YS [facility] G0378 [facility] OBSERVATI 5 N N ON COMMUNTIY COMMUNTIY SERVICE HOSPITA HOSPITA PER HOUR INITIAL 23688 [facility] OBSERVATI 5 SAMANTHA A GOP ON PHYSICIAN CARE/DAY SERVI 70 MINUTES INJ J2543 [facility] PIPERACIL 5 N N MEGHAN COMMUNTIY COMMUNTIY SOD/TAZOB HOSPITA HOSPITA ACTAM SOD 1 G/0.125 G INJECTION J2550 [facility] 5 N N PROMETHAZ COMMUNTIY COMMUNTIY INE HCL HOSPITA HOSPITA UP TO 50 MG COLLECTIO 15230 [facility] N VENOUS 5 N N BLOOD COMMUNTIY COMMUNTIY VENIPUNCT HOSPITA HOSPITA URE THROMBOPL 19186 [facility] ASTIN 5 N N TIME COMMUNTIY COMMUNTIY PARTIAL HOSPITA HOSPITA PLASMA/WH OLE BLOOD CULTURE 62546 [facility] BACTERIAL 5 N N COMMUNTIY COMMUNTIY QUANTTATI HOSPITA HOSPITA VE COLONY COUNT URINE INFUSION J7030 [facility] NORMAL 5 N N SALINE COMMUNTIY COMMUNTIY SOLUTION HOSPITA HOSPITA 1000 CC THER 00888 [facility] PROPH/DX 5 N N NJX EA COMMUNTIY COMMUNTIY SEQL IV HOSPITA HOSPITA PUSH SBST/DRUG FAC THERAPEUT 89378 [facility] IC 5 N N INJECTION COMMUNTIY COMMUNTIY IV PUSH HOSPITA HOSPITA EACH NEW DRUG INJECTION J2270 [facility] MORPHINE 5 N N SULFATE COMMUNTIY COMMUNTIY UP TO 10 HOSPITA HOSPITA MG CULTURE 86141 [facility] BACTERIAL 5 N N BLOOD COMMUNTIY COMMUNTIY AEROBIC HOSPITA HOSPITA W/ID ISOLATES INJECTION J1170 [facility] 5 N N HYDROMORP COMMUNTIY COMMUNTIY RON UP HOSPITA HOSPITA TO 4 MG THERAPEUT 00857 [facility] IC 5 N N PROPHYLAC COMMUNTIY COMMUNTIY TIC/DX HOSPITA HOSPITA INJECTION SUBQ/IM URNLS DIP 25167 [facility] 5 N N STICK/TAB COMMUNTIY COMMUNTIY LET HOSPITA HOSPITA REAGENT AUTO MICROSCOP Y BLOOD 61493 [facility] COUNT 5 N N COMPLETE COMMUNTIY COMMUNTIY AUTO&AUTO HOSPITA HOSPITA DIFRNTL WBC URNLS DIP 31960 DI[facility] BUSTAMANTE 5 [facility] STICK/TAB INC INC LET REAGENT AUTO MICROSCOP Y URINE 64066 [facility] BUSTAMANTE 5 [facility] TEST INC INC VISUAL COLOR CMPRSN METHS CULTURE 04986 [facility] BUST[facility]ANTE BACTERIAL 5 [facility] INC QUANTTATI VE COLONY COUNT URINE UNCLASSIF J3490 DIANNA BUSTAMANTE IED DRUGS 5 [facility] INC INC INFUSION J7030 [facility] NORMAL 5 N N SALINE COMMUNTIY COMMUNTIY SOLUTION HOSPITA HOSPITA 1000 CC CULTURE 26505 [facility] BACTERIAL 5 N N COMMUNTIY COMMUNTIY QUANTTATI HOSPITA HOSPITA VE COLONY COUNT URINE COLLECTIO 06987 [facility] N VENOUS 5 N N BLOOD COMMUNTIY COMMUNTIY VENIPUNCT HOSPITA HOSPITA URE INJECTION J2550 [facility] 5 N N PROMETHAZ COMMUNTIY COMMUNTIY INE HCL HOSPITA [place] 50 [place] [address] [facility] INFUSION 5 N N HYDRATION COMMUNTIY COMMUNTIY EACH HOSPITA HOSPITA ADDITIONA L HOUR COMPREHEN 96198 [facility] SIVE 5 N N METABOLIC COMMUNTIY COMMUNTIY PANEL HOSPITA HOSPITA ECG 74354 [facility] ROUTINE 5 N N ECG COMMUNTIY COMMUNTIY W/LEAST HOSPITA HOSPITA 12 [facility] TRCG ONLY W/O I&R URNLS DIP 23646 [facility] 5 N N STICK/TAB COMMUNTIY COMMUNTIY LET HOSPITA HOSPITA REAGENT AUTO MICROSCOP Y URINE 02002 [facility] 5 N N TEST COMMUNTIY COMMUNTIY VISUAL HOSP[place] [address] [facility] INFUSION 5 N N THERAPY/P COMMUNTIY COMMUNTIY ROPHYLAXI HOSPITA HOSPITA S /DX 1ST TO 1 HR ECG 64734 [facility] CELLAROSI ROUTINE 5 SAMANTHA - YORBA ECG EMERGENCY PAT W/LEAST PHYS 12 LDS I&R ONLY THERAPEUT 82139 [facility] IC 5 N N INJECTION COMMUNTIY COMMUNTIY IV PUSH HOSPITA HOSPITA EACH NEW DRUG INJECTION J2270 [facility] MORPHINE 5 N N SULFATE COMMUNTIY COMMUNTIY UP TO [address] [place] [address] [facility] LIPASE 5 N N COMMUNTIY COMMUNTIY HOSPITA HOSPITA BLOOD 05242 [facility] COUNT 5 N N SMEAR COMMUNTIY COMMUNTIY MCRSCP HOSPITA HOSPITA W/MNL DIFRNTL WBC COUNT BLOOD 42677 [facility] COUNT 5 N N COMPLETE COMMUNTIY COMMUNTIY [place] [address] [facility] LIPASE 5 N N COMMUNTIY COMMUNTIY HOSPITA HOSPITA INJECTION J2270 [facility] MORPHINE 5 N N SULFATE COMMUNTIY COMMUNTIY UP TO 10 HOSPITA HOSPITA MG THER 26339 [facility] PROPH/DX 5 N N NJX IV COMMUNTIY COMMUNTIY PUSH HOSPITA HOSPITA SINGLE/1S T SBST/DRUG URNLS DIP 38910 [facility] 5 N N STICK/TAB COMMUNTIY COMMUNTIY LET HOSPITA HOSPITA REAGENT AUTO MICROSCOP Y URINE 20223 [facility] 5 N N TEST COMMUNTIY COMMUNTIY VISUAL HOSPITA HOSPITA COLOR CMPRSN METHS BLOOD 98487 [facility] COUNT 5 N N COMPLETE COMMUNTIY COMMUNTIY AUTO&AUT[place] [address] [place] JUDD ABDOMEN & 5 RADIOLOGY LAURA PELVIS W/O CONTRAST MATERIAL COMPREHEN 81816 [facility] SIVE 5 N N METABOLIC COMMUNTIY [place] [address] [facility] INFUSION 5 N N HYDRATION COMMUNTIY COMMUNTIY EACH HOSPITA HOSPITA ADDITIONA L HOUR COLLECTIO 09176 [facility] N VENOUS 5 N N BLOOD COMMUNTIY COMMUNTIY VENIPUNCT HOSPITA HOSPITA URE INFUSION J7030 [facility] NORMAL 5 N N SALINE COMMUNTIY COMMUNTIY SOLUTION HOSPITA HOSPITA 1000 CC CULTURE 66000 [facility] BACTERIAL 5 N N COMMUNTIY COMMUNTIY QUANTTATI HOSPITA HOSPITA VE COLONY COUNT URINE UNCLASSIF J3490 DIANNA BUSTAMANTE IED DRUGS 5 [place] [address] [place] ABDOMEN & 5 [facility] PELVIS IMAGING W/[place] [address] DIANNA BUSTAMANTE AMYLASE 5 [facility] INC COMPREHEN 33152 DI[facility] BUSTAMANTE SIVE 5 [facility] [address] DIANNA BUSTAMANTE LIPASE 5 [facility] INC INC BLOOD 18718 DIANNA BUSTAMANTE COUNT 5 [facility] COMPLETE INC INC AUTO&AUTO DIFRNTL WBC URNLS DIP 53610 DI[facility] BUSTAMANTE 5 [facility] STICK/TAB INC INC LET REAGENT AUTO MICROSCOP Y URINE 65554 DI[facility] BUSTAMANTE 5 [facility] TEST INC INC VISUAL COLOR CMPRSN METHS CULTURE 81022 DIAN[facility] BUSTAMANTE BACTERIAL 5 [facility] INC INC QUANTTATI VE COLONY COUNT URINE UNCLASSIF J3490 DIANNA BUSTAMANTE IED DRUGS 5 [facility] INC INC COMPREHEN 26578 DIANNA DIANNA SIVE 5 [facility] METABOLIC INC INC PANEL BLOOD 80181 DIANNA PALACIOSON COUNT 5 [facility] COMPLETE INC INC AUTO&[place] [address] DIANNA BUSTAMANTE LIPASE 5 [facility] INC INC URNLS DIP 79050 DIANNA DIANNA 5 [facility] STICK/TAB INC INC LET REAGENT AUTO MICROSCOP Y URINE 73254 DIANNA BUSTAMANTE 5 [facility] TEST INC INC VISUAL COLOR CMPRSN METHS COLLECTIO 31740 DIANNA BUSTAMANTE N VENOUS 5 [facility] [place] [address] DIANNA BUSTAMANTE ABDOMEN & 5 [facility] PELVIS INC INC W/O CONTRAST MATERIAL URINE 91695 DIANNA BUSTAMANTE 5 [facility] TEST INC INC VISUAL COLOR CMPRSN METHS URNLS DIP 29999 DIAN[facility] BUSTAMANTE 5 [facility] STICK/TAB INC INC LET REAGENT AUTO MICROSCOP Y INJECTION J1956 [facility] 5 Y Y LEVOFLOXA [facility] LETY 250 MG INJECTION J2270 [facility] MORPHINE 5 Y Y SULFATE [facility] UP TO 10 MG INJECTION J1200 [facility] 5 Y Y DIPHENHYD [facility] RAMINE HCL UP TO 50 MG THER 01347 [facility] PROPH/DX 5 Y Y NJX EA [facility] SEQL IV PUSH SBST/DRUG FAC INFUSION J7030 [facility] NORMAL 5 Y Y SALINE [facility] SOLUTION 1000 CC COMPREHEN 31335 [facility] SIVE 5 Y Y METABOLIC [facility] PANEL INJECTION J2765 [facility] 5 Y Y METOCLOPR [facility] AMIDE HCL UP TO 10 MG INJECTION J2270 [facility] MORPHINE 5 Y Y SULFATE [facility] UP [place] 10 [place] [address] [facility] INFUSION 5 Y Y THERAPY/P [facility] ROPHYLAXI S /DX 1ST TO 1 HR THERAPEUT 44831 [facility] IC 5 Y Y INJECTION [facility] IV PUSH EACH NEW DRUG URNLS DIP 72667 [facility] 5 Y Y STICK/TAB [facility] LET REAGENT AUTO MICROSCOP Y URINE 31699 [facility] 5 Y Y TEST [facility] HOSPITAL [place] [address] [facility] LIPASE 5 Y Y HOSPITAL [facility]OSPITAL BLOOD 21954 [facility] COUNT 5 Y Y COMPLETE [facility] [place] [address] [place] KOSTELIC ABDOMEN & 5 RADIOLOGY ROBERT PELVIS W/[place] [address] DIANNA BUSTAMANTE ABDOMEN & 5 [facility] PELVIS INC INC W/O CONTRAST MATERIAL UNCLASSIF J3490 DIANNA BUSTAMANTE IED DRUGS 5 [facility] INC INC THROMBOPL 64357 DIANNA BUSTAMANTE ASTIN 5 [facility] TIME INC INC PARTIAL PLASMA/WH OLE BLOOD CULTURE 47869 [facility] BUSTAMANTE BACTERIAL 5 [facility] INC INC QUANTTATI VE COLONY COUNT URINE URNLS DIP 08122 [facility] BUSTAMANTE 5 [facility] STICK/TAB INC INC LET REAGENT AUTO MICROSCOP Y COMPREHEN 12577 [facility] BUST[facility] SIVE 5 [facility] [address] DIANNA BUSTAMANTE AMYLASE 5 [facility] INC INC BLOOD 02898 DI[facility]NA BUSTAMANTE COUNT 5 [facility] COMPLETE INC INC AUTO&[place] [address] DI[facility] BUSTAMANTE INFUSION 5 [facility] THERAPY/P INC INC ROPHYLAXI S /DX 1ST TO 1 HR PROTHROMB 48406 DIAN[facility] BUSTAMANTE IN TIME 5 [facility] INC INC THERAPEUT 84207 [facility] BUST[facility]ANTE IC 5 [facility] INJECTION INC [place] [address] DIANNA BUSTAMANTE LIPASE 5 [place] [address] [facility] LIPASE 5 N N COMMUNTIY COMMUNTIY HOSPITA HOSPITA THERAPEUT 35112 [facility] IC 5 N N INJECTION COMMUNTIY COMMUNTIY IV PUSH HOSPITA HOSPITA EACH NEW DRUG INJECTION J2270 [facility] MORPHINE 5 N N SULFATE COMMUNTIY COMMUNTIY UP TO [address] [place] [address] [facility] ABDOMEN & 5 N N PELVIS COMMUNTIY COMMUNTIY W/CONTRAS HOSPITA HOSPITA T MATERIAL BLOOD 78555 [facility] COUNT 5 N N COMPLETE COMMUNTIY COMMUNTIY AUTO&AUTO HOSP[place] [address] [facility] AMYLASE 5 N N COMMUNTIY COMMUNTIY HOSPITA HOSPITA LOCM Q9967 [facility] 300-399 5 N N MG/ML COMMUNTIY COMMUNTIY IODINE HOSPITA HOSPITA CONCENTRA TION PER ML URNLS DIP 37821 [facility] 5 N N STICK/TAB COMMUNTIY COMMUNTIY LET HOSPITA HOSPITA REAGENT AUTO MICROSCOP Y URINE 62774 [facility] 5 N N TEST COMMUNTIY COMMUNTIY VISUAL HOSPITA HOSPITA COLOR CMPRSN METHS CULTURE 80164 [facility] BACTERIAL 5 N N COMMUNTIY COMMUNTIY QUANTTATI HOSPITA HOSPITA VE COLONY COUNT URINE COMPREHEN 12237 [facility] SIVE 5 N N METABOLIC COMMUNTIY COMMUNTIY PANEL HOSPITA HOSPITA INJECTION J2550 [facility] 5 N N PROMETHAZ COMMUNTIY COMMUNTIY INE HCL HOSPITA HOSPITA UP TO 50 MG COMPREHEN 79396 DIANNA BUSTAMANTE SIVE 5 [facility] METABOLIC INC INC PANEL CULTURE 16364 DI[facility] BUSTAMANTE BACTERIAL 5 [facility] INC INC QUANTTATI VE COLONY COUNT URINE UNCLASSIF J3490 DIANNA BUSTAMANTE IED DRUGS 5 [facility] INC INC URINE 14192 DIANNA BUSTAMANTE 5 [facility] TEST INC INC VISUAL COLOR CMPRSN METHS URNLS DIP 78248 DI[facility]NA PALACIOSON 5 [facility] STICK/TAB INC INC LET REAGENT AUTO MICROSCOP Y BLOOD 83932 DI[facility] BUSTAMANTE COUNT 5 [facility] COMPLETE INC INC AUTO&[place] [address] DIANNA BUSTAMANTE AMYLASE 5 [place] [address] DIANNA BUSTAMANTE LIPASE 5 [facility] INC INC URNLS DIP 40900 DIANNA PALACIOSON 5 [facility] STICK/TAB INC INC LET REAGENT AUTO MICROSCOP Y URINE 53111 DI[facility] BUSTAMANTE 5 [facility] TEST INC INC VISUAL COLOR CMPRSN METHS UNCLASSIF J3490 DIANNA BUSTAMANTE IED DRUGS 5 [place] [address] DIANNA BUSTAMANTE ABDOMEN & 5 [facility] PELVIS INC INC W/O CONTRAST MATERIAL UNCLASSIF J3490 DIANNA BUSTAMANTE IED DRUGS 5 [facility] INC INC THER 34826 DIANNA BUSTAMANTE PROPH/DX 5 [facility] NJX IV INC INC PUSH SINGLE/1S T SBST/DRUG THERAPEUT 46574 DIANNA BUSTAMANTE IC 5 [facility] INJECTION INC INC IV PUSH EACH NEW DRUG RADIOLOGI 59587 DIANNA BUSTAMANTE C 5 [facility] EXAMINATI INC INC ON TIBIA & [place] [address] [place] [address] [facility] GARZA ABDOMEN & 5 [facility] PELVIS IMAGING W/O ASS CONTRAST MATERIAL Encounters Encounter Start End Date Code Location Performer Type Date OFFICE [id number] Lynn MOSS 7 7 JAVIER ROMAN T VISIT PSC 10 MINUTES OFFICE 91119 Lynn MOSS 7 7 JAVIER ROMAN T VISIT PSC 15 MINUTES EMERGENCY 78335 LÁZARO PATE DEPT 7 7 PHYSICIAN VISIT S, PLLC HIGH SEVERITY& THREAT FUNCJ EMERGENCY 38309 LÁZARO DEAN DEPT 7 7 PHYSICIAN JR VISIT S, [facility] HIGH SEVERITY& THREAT [facility] DIANNA - 7 7 [facility] OUTPATIEN INC T EMERGENCY 03926 LÁZARO PTAE 7 7 PHYSICIAN DEPARTMEN S, [facility] T VISIT MODERATE SEVERITY EMERGENCY 98827 DIANNA 7 7 [facility] DEPARTMEN INC T VISIT LOW/MODER SEVERITY HOSPITAL DI[facility] - 7 7 [facility] OUTPATIEN INC T EMERGENCY 16519 DIANNA 7 7 [facility] DEPARTMEN INC T VISIT LOW/MODER SEVERITY EMERGENCY 83846 LÁZARO DEAN 7 7 PHYSICIAN JR DEPARTMEN S, [facility] T VISIT HIGH/URGE NT SEVERITY OFFICE 95924 A Kaelyn MOSS 7 7 JAVIER ROMAN T VISIT PSC 25 MINUTES HOSPITAL DI[facility] - 7 7 [facility] OUTPATIEN INC T EMERGENCY 20434 DIANNA DEPT 7 7 [facility] VISIT INC HIGH SEVERITY& THREAT [facility] EMERGENCY 25999 [facility] T[facility] DEPT 7 7 SAMANTHA VISIT EMERGENCY HIGH PHYS SEVERITY& THREAT [facility] DIANNA - 7 7 [facility] OUTPATIEN INC T EMERGENCY 54561 LÁZARO [place] DEPT 7 7 PHYSICIAN U VISIT S, [facility] HIGH SEVERITY& THREAT [facility] EMERGENCY 27027 DIANNA 7 7 [facility] DEPARTMEN INC T VISIT LOW/MODER SEVERITY OFFICE 14434 Lynn MOSS 7 7 JAVIER ROMAN T VISIT PSC 15 MINUTES OFFICE 97418 DI[facility]NA MOSS 7 7 [facility] T VISIT 5 INC MINUTES HOSPITAL DI[facility] - 7 7 [facility] OUTPATIEN INC T OFFICE 20544 Lynn MOSS 7 7 JAVIER ROMAN T VISIT PSC 15 MINUTES EMERGENCY 33113 [facility] 7 7 SAMANTHA DEPARTMEN EMERGENCY T VISIT PHYS HIGH/URGE NT SEVERITY EMERGENCY 53276 DIANNA 7 7 [facility] DEPARTMEN INC T VISIT LOW/MODER SEVERITY EMERGENCY 42948 LÁZARO PATE 7 7 PHYSICIAN DEPARTMEN S, [facility] T VISIT HIGH/URGE NT SEVERITY HOSPITAL DIANNA - 7 7 [facility] OUTPATIEN INC T EMERGENCY 13344 [facility] 7 7 SAMANTHA DEPARTMEN EMERGENCY T VISIT PHYS HIGH/URGE NT SEVERITY EMERGENCY 59828 LÁZARO WALTON DEPT 7 7 PHYSICIAN U VISIT S, [facility] HIGH SEVERITY& THREAT FUNCJ EMERGENCY 94284 LÁZARO PATE 7 7 PHYSICIAN DEPARTMEN S, [facility] T VISIT HIGH/URGE NT SEVERITY EMERGENCY 61222 [facility] 6 6 SAMANTHA DEPARTMEN EMERGENCY T VISIT PHYS HIGH/URGE NT SEVERITY EMERGENCY 86490 [facility] 6 6 N DEPARTMEN COMMUNTIY T VISIT HOSPITA MODERATE SEVERITY HOSPITAL [facility] - 6 6 N OUTPATIEN COMMUNTIY T HOSPITA EMERGENCY 98142 [facility] 6 6 SAM[facility]THA VISIT EMERGENCY HIGH SERV SEVERITY& THREAT [facility] H[facility]PITAL DIANNA - 6 6 [facility] OUTPATIEN INC T EMERGENCY 39227 LÁZARO WALTON 6 6 PHYSICIAN U DEPARTMEN S, [facility] T VISIT HIGH/URGE NT SEVERITY EMERGENCY 59192 [facility] 6 6 MEM HOSP [facility] INC T VISIT LIMITED/M INOR PROB EMERGENCY 93432 [facility] DI[facility] DEPT 6 6 SAMANTHA SCO VISIT EMERGENCY HIGH PHYS SEVERITY& THREAT FUNCJ OFFICE 55293 [place] RICHTER SHAYY OUTPATIEN 6 6 JAVIER ROMAN T VISIT PSC 15 MINUTES EMERGENCY 31455 LÁZARO WALTON DEPT 6 6 PHYSICIAN Valery [facility] HIGH SEVERITY& [facility]AT [facility] 71088 A C RICK OUTPATIEN 6 6 JAVIER [facility] T VISIT PSC 15 MINUTES HOSPITAL DI[facility] - 6 6 [facility] OUTPATIEN INC T OFFICE 14841 [facility] OUTPATIEN 6 6 [facility]IER [facility] T VISIT PSC 15 MINUTES OFFICE 36163 A C RICK OUTPATIEN 6 6 JAVIER [facility] T VISIT PSC 15 MINUTES OFFICE 53353 A C CONNIE OUTPATIEN 6 6 JAVIER LOGAN T VISIT PSC 15 MINUTES OFFICE 84393 A C MERLINE OUTPATIEN 6 6 JAVIER [facility] T VISIT PSC 15 MINUTES HOSPITAL DIANNA - 6 6 [facility] OUTPATIEN INC T OFFICE 85741 A C RICK OUTPATIEN 6 6 JAVIER [facility] T VISIT PSC 15 MINUTES OFFICE 69681 A C RICK OUTPATIEN 6 6 JAVIER [facility] T VISIT PSC 15 MINUTES OFFICE 22677 A C RICK OUTPATIEN 6 6 JAVIER CHI T VISIT PSC 15 MINUTES EMERGENCY 41175 LÁZARO PATE 6 6 PHYSICIAN LYNDA [facility] T VISIT HIGH/URGE NT SEVERITY HOSPITAL DIANNA - 6 6 [facility] OUTPATIEN INC T OFFICE 34782 A C KILPELA OUTPATIEN 6 6 JAVIER LOGAN T VISIT PSC 25 MINUTES HOSPITAL DIANNA - 6 6 [facility] OUTPATIEN INC T OFFICE 44260 A C RICK OUTPATIEN 6 6 JAVIER CHI T VISIT PSC 15 MINUTES EMERGENCY 78778 JOCY BRASHER QUENTIN 6 6 MEDICAL DEPARTMEN SERV T VISIT FOUNDATIO MODERATE N SEVERITY EMERGENCY 93516 [facility] FAUSTINO JAM 6 6 SAM[place]THA DEPARTMEN EMERGENCY T VISIT PHYS HIGH/URGE NT SEVERITY OFFICE 39493 A Kaelyn RICK OUTPATIEN 6 6 JAVIER CHI T NEW 30 PSC MINUTES EMERGENCY 35583 JOCY TAM 6 6 MEDICAL MAT DEPARTMEN SERV T VISIT FOUNDATIO HIGH/URGE N NT SEVERITY EMERGENCY 87288 [facility] 6 6 SAMANTHA DEPARTMEN EMERGENCY T VISIT PHYS HIGH/URGE NT SEVERITY HOSPITAL DI[facility] - 6 6 [facility] OUTPATIEN INC T EMERGENCY 93764 [facility] 6 6 [facility] DEPARTMEN INC T VISIT HIGH/URGE NT SEVERITY EMERGENCY 44532 LÁZARO PATE DEPT 6 6 PHYSICIAN LYNDA VISIT S, PLLC HIGH SEVERITY& THREAT FUNCJ EMERGENCY 38700 LÁZARO WALTON 6 6 PHYSICIAN U MARCIA [facility] S, [facility] T VISIT MODERATE SEVERITY EMERGENCY 63805 [facility] ROSALES SCO 6 6 SAMANTHA DEPARTMEN EMERGENCY T VISIT SERV HIGH/URGE NT SEVERITY EMERGENCY 56692 LÁZARO PATE 6 6 PHYSICIAN LYNDA DEPARTMEN S, PLLC T VISIT HIGH/URGE NT SEVERITY EMERGENCY 15050 LÁZARO WALTON 6 6 PHYSICIAN U [facility] T VISIT MODERATE SEVERITY EMERGENCY 77422 LÁZARO PATE 6 6 PHYSICIAN LYNDA DEPARTMEN S, PLLC T VISIT HIGH/URGE NT SEVERITY EMERGENCY 25287 LÁZARO HOWELL 6 6 PHYSICIAN PHILLIP DEPARTMEN S, PLLC T VISIT HIGH/URGE NT SEVERITY EMERGENCY 24172 [facility] ARN[facility] 6 6 SAMANTHA KAEL DEPARTMEN EMERGENCY T VISIT PHYS HIGH/URGE NT SEVERITY EMERGENCY 12621 LÁZARO CHACON DEPT 6 6 PHYSICIAN FOR VISIT S, PLLC HIGH SEVERITY& THREAT FUNJ EMERGENCY 62962 LÁZARO PATE 6 6 PHYSICIAN LYNDA DEPARTMEN S, PLLC T VISIT HIGH/URGE NT SEVERITY EMERGENCY 92569 [facility] 6 6 SAMANTHA BRANDY DEPARTMEN EMERGENCY T VISIT PHYS HIGH/URGE NT SEVERITY EMERGENCY 72568 [facility] 6 6 [facility] DEPARTMEN INC T VISIT MODERATE SEVERITY EMERGENCY 22782 LÁZARO [facility]ODAS [facility] 6 6 PHYSICIAN DEPARTMEN S, [facility] VISIT HIGH/URGE NT SEVERITY HOSPITAL DI[facility] - 6 6 [facility] OUTPATIEN INC T EMERGENCY 74827 [facility] 6 6 N DEPARTMEN COMMUNTIY T VISIT HOSPITA HIGH/URGE NT SEVERITY HOSPITAL [facility] - 6 6 N OUTPATIEN COMMUNTIY T HOSPITA EMERGENCY 58589 [facility] ILANA DEPT 6 6 SAMANTHA MON VISIT EMERGENCY HIGH PHYS SEVERITY& THREAT FUN EMERGENCY 75469 [facility] DE[facility] 5 5 SAMANTHA VISIT EMERGENCY HIGH SERV SEVERITY& THREAT [facility] - 5 5 N OUTPATIEN COMMUNTIY T HOSPITA EMERGENCY 81249 [facility] 5 5 N DEPARTMEN COMMUNTIY T VISIT HOSPITA HIGH/URGE NT SEVERITY HOSPITAL [facility] - 5 5 [facility] OUTPATIEN INC T EMERGENCY 96410 LÁZARO PATE DEPT 5 5 PHYSICIAN LYNDA VISIT S, PLLC HIGH SEVERITY& THREAT FUNJ EMERGENCY 71080 [facility] 5 5 [facility] DEPARTMEN INC T VISIT LOW/MODER SEVERITY HOSPITAL TAM[facility] - 5 5 N OUTPATIEN COMMUNTIY T HOSPITA EMERGENCY 45028 [facility] DEPT 5 5 N VISIT COMMUNTIY HIGH HOSPITA SEVERITY& THREAT FUNCJ EMERGENCY 57486 LÁZARO OROZCO 5 5 PHYSICIAN BECKIE [facility] T VISIT MODERATE SEVERITY EMERGENCY 27539 DI[facility] 5 5 MEM [facility] INC T VISIT LOW/MODER SEVERITY EMERGENCY 63034 LÁZARO PATE 5 5 PHYSICIAN LYNDA [facility] S, [facility] T VISIT HIGH/URGE NT SEVERITY HOSPITAL DIANNA - 5 5 [facility] OUTPATIEN [facility] EMERGENCY 13938 DI[facility] 5 5 [facility] T VISIT LOW/MODER SEVERITY EMERGENCY 05051 LÁZARO WALTON 5 5 PHYSICIAN Valery [facility], [facility] T VISIT MODERATE SEVERITY HOSPITAL DIAN[facility] - 5 5 [facility] OUTPATIEN [facility] EMERGENCY 37361 [facility] CELLAROSI DEPT 5 5 SAMANTHA - YORBA VISIT EMERGENCY PAT HIGH PHYS SEVERITY& THREAT FUNCJ EMERGENCY 18437 [facility] 5 [facility] H[facility]PITA HIGH/URGE NT SEVERITY [facility] - 5 5 N OUTPATIEN COMMUNTIY T HOSPITA EMERGENCY 19589 [facility] DEPT 5 5 SAMANTHA JERILYN VISIT EMERGENCY HIGH PHYS SEVERITY& THREAT FUNCJ EMERGENCY 56271 [facility] 5 5 N DEPARTMEN COMMUNTIY T VISIT HOSPITA HIGH/URGE NT SEVERITY [facility] 5 N [facility] OUTPATIEN INC T EMERGENCY 07555 [facility] 5 5 [facility] T VISIT LIMITED/M INOR PROB EMERGENCY 32290 LÁZARO TELLES 5 5 PHYSICIAN DEPARTMEN S, [facility] T VISIT MODERATE SEVERITY HOSPITAL DI[facility] - 5 5 [facility] OUTPATIEN INC T EMERGENCY 72559 LÁZARO PATE DEPT 5 5 PHYSICIAN LYNDA VISIT S, [facility] HIGH SEVERITY& THREAT FUNCJ EMERGENCY 62280 DIANNA 5 5 [facility] DEPARTMEN INC T VISIT LOW/MODER SEVERITY EMERGENCY 54208 [facility] 5 5 [facility] DEPARTMEN INC T VISIT MODERATE SEVERITY HOSPITAL DI[facility] - 5 5 [facility] OUTPATIEN INC T EMERGENCY 08545 LÁZARO OLVERA 5 5 PHYSICIAN DEPARTMEN S, [facility] T VISIT HIGH/URGE NT SEVERITY HOSPITAL DIANNA - 5 5 [facility] OUTPATIEN [facility] T EMERGENCY 38870 DIANNA 5 5 [facility] DEPARTMEN INC T VISIT LOW/MODER SEVERITY EMERGENCY 61053 LÁZARO PATE 5 5 PHYSICIAN LYNDA DEPARTMEN S, [facility] T VISIT HIGH/URGE NT SEVERITY EMERGENCY 93369 [facility] 5 5 Y [facility] T VISIT HIGH/URGE NT SEVERITY HOSPITAL UN[facility] - 5 5 Y [facility] T EMERGENCY 35517 [facility] 5 5 SAMANTHA PET [facility] EMERGENCY T VISIT PHYS HIGH/URGE NT SEVERITY EMERGENCY 53129 LÁZARO WALTON DEPT 5 5 PHYSICIAN U MARCIA VISIT S, [facility] HIGH SEVERITY& THREAT FUNCJ EMERGENCY 34008 DIANNA 5 5 [facility] DEPARTMEN INC T VISIT HIGH/URGE NT SEVERITY HOSPITAL DIANNA - 5 5 [facility] OUTPATIEN INC T HOSPITAL [facility] - 5 5 N OUTPATIEN COMMUNTIY T HOSPITA EMERGENCY 46374Lucy LANDIS 5 5 N [facility] T VISIT HOSPITA HIGH/URGE NT SEVERITY EMERGENCY 33613 [facility] DEPT 5 5 SAMANTHA COREY VISIT EMERGENCY HIGH PHYS SEVERITY& THREAT FUNCJ EMERGENCY 76183 LÁZARO PATE 5 5 [facility] S, [facility] T VISIT HIGH/URGE NT SEVERITY EMERGENCY 13646 DIANNA 5 5 [facility]IS[facility] LOW/MODER SEVERITY [facility]OSP[facility] DI[facility] - 5 5 [facility] OUTPATIEN INC T EMERGENCY 68491 DIANNA PATE 5 5 [facility] T VISIT P MODERATE SEVERITY HOSPITAL DIAN[facility] - 5 5 [facility] OUTPATIEN INC T EMERGENCY 48536 DIANNA 5 5 [facility] INC T VISIT LOW/MODER SEVERITY EMERGENCY 90040 DIANNA ARBOLEDA 5 5 [facility] T VISIT P LOW/MODER SEVERITY HOSPITAL DIANNA - 5 5 [facility] OUTPATIEN INC T EMERGENCY 73885 DIANNA 5 5 [facility] INC T VISIT HIGH/URGE NT SEVERITY EMERGENCY 84863 DIANNA 5 5 [facility] INC T VISIT LOW/MODER SEVERITY EMERGENCY 92756 DIANNA DEAN, 5 5 [facility] T VISIT P MODERATE SEVERITY HOSPITAL DI[facility] - 5 5 [facility] T
--- OUTSIDE RECORDS SUMMARY | 2017-03-25 13:42 | External Medical Summary Rpt | CCD ---
Demographics Preferred Language Urdu Marital Status Unknown Christian Affiliation Unknown Race Unknown Ethnic Group Unknown Author Author , ROBERTO MEJIA Address Unknown Phone Immunization No patient found.
--- OUTSIDE RECORDS SUMMARY | 2017-03-25 13:42 | External Medical Summary Rpt | CCD ---
Demographics Preferred Language Yi Marital Status Unknown Sabianist Affiliation Unknown Race Unknown Ethnic Group Unknown Author Author , ROBERTO MEJIA Address Unknown Phone Immunization No patient found.
--- OUTSIDE RECORDS SUMMARY | 2017-03-25 13:45 | External Medical Summary Rpt ---
Author Author ROBERTO Courtney, [employer] Organization [employer] Address Unknown Phone Unavailable Results CBC W Auto Differential panel in Blood Observa Value Referen Units Interpr Notes Date tion ce etation Range Basophils 0 - 0.2 K/MM3 High No Mar 21 informati 2016 [#/volume on in 12:30 AM ] in source Blood by data Automated count Basophils 0.1 - 2.0 % High No Mar 21 inform2016 leukocyte on in 12:30 AM s in source Blood by data Automated count Eosinophi 0.0 - 0.4 K/mm3 Normal No Mar 21 ls informati 2016 [#/volume on in 12:30 AM ] in source Blood by data Automated count Eosinophi 0.1 - % Normal No Mar 21 ls/100 12.0 inform2016 leukocyte on in 12:30 AM s in source Blood by data Automated count Granulocy 1.8 - 7.8 K/mm3 High No Mar 21 paulo inform2016 [#/volume on in 12:30 AM ] in source Blood by data Automated count Granulocy 37.0 - % Normal No Mar 21 paulo/100 80.0 inform2016 leukocyte on in 12:30 AM s in source Blood by data Automated count Hematocri 37.0 - % Normal No Mar 21 t [Volume 47.0 2016 on in 12:30 AM Fraction] source of Blood data Hemoglobi 12.2 - g/dL Normal No Mar 21 n 16.2 inform2016 [Mass/vol on in 12:30 AM ume] in source Blood data Lymphocyt 0.7 - 4.5 K/mm3 Normal No Mar 21 es inform2016 [#/volume on in 12:30 AM ] in source Unspecifi data ed specimen by Automated count Lymphocyt 10 - 50.0 % Normal No Mar 21 es inform2016 [#/volume on in 12:30 AM ] in source Unspecifi data ed specimen by Automated count Erythrocy 27 - 31.2 pg Low No Mar 21 te mean inform2016 corpuscul on in 12:30 AM ar source hemoglobi data n [Entitic mass] Erythrocy 31.8 - g/dl Low No Mar 21 te mean 35.4 inform2016 corpuscul on in 12:30 AM ar source hemoglobi data n concentra tion [Mass/vol ume] by Automated count Erythrocy 82.2 - fl Normal No Mar 21 te mean 97.8 2016 corpuscul on in 12:30 AM ar volume source [Entitic data volume] by Automated count Monocytes 0.1 - 1.0 K/mm3 High No Mar 21 inform2016 [#/volume on in 12:30 AM ] in source Blood by data Automated count Monocytes 1.7 - 9.3 % Normal No Mar 212016 leukocyte on in 12:30 AM s in source Blood by data Automated count Platelet 7.4 - fl High No Mar 21 mean 10.4 inform2016 volume on in 12:30 AM [Entitic source volume] data in Blood by Automated count Platelets 142 - 424 K/mm3 High No Mar 21 inform2016 [#/volume on in 12:30 AM ] in source Blood data Erythrocy 4.2 - 5.4 M/mm3 Normal No Mar 21 paulo inform2016 [#/volume on in 12:30 AM ] in source Amniotic data fluid Erythrocy 11.5 - % High No Mar 21 te 17.5 2016 distribut on in 12:30 AM ion width source [Entitic data volume] by Automated count Leukocyte 4.8 - K/MM3 High No Mar 21 s 10.8 2016 [#/volume on in 12:30 AM ] in source Blood data Differential panel, method unspecified - Observa Value Referen Units Interpr Notes Date tion ce etation Range Anisocy 1+ No No No No Mar 21 tosis informa informa informa inform2016 [Presen tion in tion in tion in tion in 12:30 ce] in source source source source AM Blood data data data data Basophils 0 - 1 % Normal No Mar 212016 leukocyte on in 12:30 AM s in source Blood by data Automated count Eosinophi 0 - 3 % Normal No Mar 212016 leukocyte on in 12:30 AM s in source Blood by data Manual count LYMPH 25 10 - 50 % Normal No Mar 212016 tion in 12:30 source AM data Monocytes 2 - 9 % Normal No Mar 12 /100 inform2016 leukocyte on in 12:30 AM s in source Blood by data Automated count Platele NORMAL No No No No Mar 21 ts informa informa informa informa 2016 [Presen tion in tion in tion in tion in 12:30 ce] in source source source source AM Blood data data data data by Light microsc opy Neutrophi 42 - 76 % Normal No Mar 21 ls informati 2016 [#/volume on in 12:30 AM ] in source Blood by data Automated count Stomato 1+ No No No No Mar 21 cytes informa informa informa informa 2016 [Presen tion in tion in tion in tion in 12:30 ce] in source source source source AM Blood data data data data by Light microsc opy Cells No #CELLS No No Mar 21 Counted informati informati informati 2016 Total [#] on in on in on in 12:30 AM in Blood source source source data data data Comprehensive metabolic 2000 panel in Serum or Plasma Observa Value Referen Units Interpr Notes Date tion ce etation Range Albumin/G 1.1 - 1.8 No Low No Mar 21 lobulin informati informati 2016 [Mass on in on in 12:30 AM ratio] in source source Serum or data data Plasma Albumin 3.4 - 5.0 gm/dL Normal No Mar 21 [Mass/vol informati 2016 ume] in on in 12:30 AM Serum or source Plasma data Alkaline 46 - 116 U/L Normal No Mar 21 phosphata informati 2016 se on in 12:30 AM [Enzymati source c data activity/ volume] in Serum or Plasma Bilirubin 0.2 - 1.0 mg/dL Normal No Mar 21 .total informati 2016 [Mass/vol on in 12:30 AM ume] in source Serum or data Plasma Urea 7 - 18 mg/dL Normal No Mar 21 nitrogen informati 2016 [Mass/vol on in 12:30 AM ume] in source Serum or data Plasma Calcium 8.5 - mg/dL Normal No Mar 21 [Mass/vol 10.1 informati 2016 ume] in on in 12:30 AM Serum or source Plasma data Chloride 98 - 107 mmoL/L Normal No Mar 21 [Moles/vo informati 2016 lume] in on in 12:30 AM Serum or source Plasma data Carbon 21.0 - mmoL/L Normal No Mar 12 dioxide, 32.0 informati 2017 total on in 12:30 AM [Moles/vo source lume] in data Serum or Plasma Creatinin 0.55 - mg/dL Normal No Mar 12 e 1.02 informati 2017 [Mass/vol on in 12:30 AM ume] in source Serum or data Plasma Creatinin 50 - 200 ML/MIN Normal No Mar 12 e renal informati 2017 clearance on in 12:30 AM source predicted data by Cockcroft -Gault formula Estimated 59- ML/MIN No REFERENCE Mar 12 informati RANGE: 2017 glomerula on in >60 12:30 AM r source ML/MIN/1. filtratio data 73 SQUARE n rate METERSIf (GF this patient is -A merican, then multiply theresult by 1.210. Globulin 1.3 - 3.2 gm/dL High No Mar 21 [Mass/vol informati 2016 ume] in on in 12:30 AM Serum source data Glucose 74 - 106 mg/dL High No Mar 12 [Mass/vol informati 2016 ume] in on in 12:30 AM Serum or source Plasma data Potassium 3.5 - 5.1 mmoL/L Normal No Mar 12 inform2016 [Moles/vo on in 12:30 AM lume] in source Serum or data Plasma Sodium 136 - 145 mmoL/L Normal No Mar 12 [Moles/vo informati 2017 lume] in on in 12:30 AM Serum or source Plasma data Aspartate 15 - 37 U/L Low No Mar 21 informati 2016 aminotran on in 12:30 AM sferase source [Enzymati data c activity/ volume] in Serum or Plasma Alanine 12 - 78 U/L Normal No Mar 12 aminotran informati 2016 sferase on in 12:30 AM [Enzymati source c data activity/ volume] in Serum or Plasma Protein 6.4 - 8.2 gm/dL Normal No Mar 12 [Mass/vol informati 2016 ume] in on in 12:30 AM Serum or source Plasma data Choriogonadotropin.beta subunit [Units] in 24 hour Urine Observa Value Referen Units Interpr Notes Date tion ce etation Range Choriogon NEG No No No Mar 12 adotropin informati informati informati 2017 .beta on in on in on in 12:25 AM subunit source source source [Units] data data data in 24 hour Urine Urinalysis dipstick W Reflex Microscopic panel in Urine Observa Value Referen Units Interpr Notes Date tion ce etation Range Appeara CLEAR CLEAR No No No Mar 21 nce of informa informa informa 2017 Urine tion in tion in tion in 12:24 source source source AM data data data Bacteri 1+ O No No No Mar 21 a informa informa informa 2016 [Presen tion in tion in tion in 12:24 ce] in source source source AM Urine data data data sedimen t by Light microsc opy Bilirub NEGATIV NEG No No No Mar [...] data t by Light microsc opy Mucus 1+ OCC No No No Mar 21 [Presen informa informa informa 2016 ce] in tion in tion in tion in 12:24 Urine source source source AM sedimen data data data t by Light [...] No No Mar 21 [Mass/vol informati informati 2017 ume] in on in on in 12:24 AM Urine by source source Automated data data test strip Erythro 10-20 0 rbc/hpf No No Mar 21 cytes informa informa 2016 [Presen tion in tion in 12:24 ce] in source source AM Urine data data sedimen t by Light microsc opy Specific 1.005 - No Normal No Mar 21 gravity 1.030 informati informati 2016 of Urine on in on in 12:24 AM source source data data Epithel 3-5 0 - 5 #/hpf No No Mar 21 ial informa informa 2017 cells.s tion in tion in 12:24 quamous source source AM data data [Presen ce] in Urine sedimen t by Microsc opy high power field Urobili 0.2 NEG E.U./dL No No Mar 21 nogen informa informa 2016 [Presen tion in tion in 12:24 ce] in source source AM Urine data data by Test strip Leukocy [20 O wbc/hpf No No Mar 21 paulo wbc/hpf informa informa 2016 [#/volu ; 50 tion in tion in 12:24 me] in wbc/hpf source source AM Urine ] data data Urinalysis dipstick W [...] No Mar 21 of informa informa informa 2017 Urine tion in tion in tion in 12:24 source source source AM data data data Glucose NEG No No No Mar 21 [Mass/vol informati informati informati 2017 ume] in [...] Bacteri 2+ O No No No Sep a informa informa informa 2016 [Presen tion [...] paulo wbc/hpf informa informa 2017 [#/volu ; 20 tion in tion in [...] No Sep 12 a informa informa informa 2017 [Presen tion [...] No Sep 12 gravity 1.030 informati informati 2016 7:15 of Urine on in on in PM source source data data Urobili 0.2 NEG E.U./dL No No Sep 12 nogen informa informa 2016 [Presen tion in [...] gm/dL Normal No Jan 26 [Mass/vol informati 2017 6:45 ume] in on in PM Serum or source Plasma data Alkaline 46 - 116 U/L Normal No Jan 26 phosphata informati 2017 6:45 se on in PM [Enzymati source c data activity/ volume] in Serum or Plasma Bilirubin 0.2 - 1.0 mg/dL Normal No Jan 26 .total informati 2017 6:45 [Mass/vol on in PM ume] in source Serum or data Plasma Urea 7 - 18 mg/dL Normal No Jan 26 nitrogen informati 2017 6:45 [Mass/vol on in PM ume] in source Serum or data Plasma Calcium 8.5 - mg/dL Normal No Jan 26 [Mass/vol 10.1 informati 2017 6:45 ume] in on in PM Serum or source Plasma data Chloride 98 - 107 mmoL/L Normal No Jan 26 [Moles/vo informati 2016 6:45 lume] in on in PM Serum or source Plasma data Carbon 21.0 - mmoL/L Normal No Jan 26 dioxide, 32.0 informati 2016 6:45 total on in PM [Moles/vo source [...] 145 mmoL/L Normal No Jan 26 [Moles/vo informati 2016 6:45 lume] in on in PM Serum or source Plasma data Aspartate 15 - 37 U/L Normal No Jan 26 informati 2016 6:45 aminotran on in PM sferase source [Enzymati data c activity/ volume] in Serum or Plasma Alanine 12 - 78 U/L Normal No Jan 26 aminotran informati 2016 6:45 sferase on in PM [Enzymati [...] 0 - 0.2 K/MM3 Normal No Jan 26 informati 2016 6:45 [#/volume on in PM ] in source Blood by data Automated count Basophils 0.1 - 2.0 % Normal No Jan 26 /100 informati 2016 6:45 leukocyte on in PM s in source Blood by data Automated count Eosinophi 0.0 - 0.4 K/mm3 Normal No Jan 26 ls informati 2016 6:45 [#/volume on in PM ] in source Blood by data Automated count Eosinophi 0.1 - % Normal No Jan 26 ls/100 12.0 informati 2016 6:45 leukocyte on in PM s in source Blood by data Automated count Granulocy 1.8 - 7.8 K/mm3 High No Jan 26 paulo informati 2016 6:45 [#/volume on in PM ] in source Blood by data Automated count Granulocy 37.0 - % Normal No Jan 26 paulo/100 80.0 informati 2016 6:45 leukocyte on in PM s in source Blood by data Automated count Hematocri 37.0 - % Normal No Jan 26 t [Volume 47.0 informati 2016 6:45 on in PM Fraction] source of Blood data Hemoglobi 12.2 - g/dL Normal No Jan 26 n 16.2 informati 2016 6:45 [Mass/vol on in PM ume] in source Blood data Lymphocyt 0.7 - 4.5 K/mm3 Normal No Jan 26 es 2016 6:45 [#/volume on in PM ] in source Unspecifi data ed specimen by Automated count Lymphocyt 10 - 50.0 % Normal No Jan 26 es 2016 6:45 [#/volume on in PM ] in source Unspecifi data ed specimen by Automated count Erythrocy 27 - 31.2 pg Low No Jan 26 te mean 2016 6:45 corpuscul on in PM ar source hemoglobi data n [Entitic mass] Erythrocy 31.8 - g/dl Normal Jan 26 te mean 35.4 informati 2017 6:45 corpuscul on in PM ar source hemoglobi data n concentra tion [Mass/vol ume] by Automated count Erythrocy 82.2 - fl Low No Jan 26 te mean 97.8 informati 2016 6:45 corpuscul on in PM ar volume source [Entitic data volume] by Automated count Monocytes 0.1 - 1.0 K/mm3 Normal No Jan 262016 6:45 [#/volume on in PM ] in source Blood by data Automated count Monocytes 1.7 - 9.3 % Normal No Jan 26 /100 ati 2016 6:45 leukocyte on in PM s in source Blood by data Automated count Platelet 7.4 - fl Normal No Jan 26 mean 10.4 2016 6:45 volume on in PM [Entitic source volume] data in Blood by Automated count Platelets 142 - 424 K/mm3 High No Jan 26 informati 2016 6:45 [#/volume on in PM ] in source Blood data Erythrocy 4.2 - 5.4 M/mm3 High No Jan 26 paulo ati 2016 6:45 [#/volume on in PM ] in source Amniotic data fluid Erythrocy 11.5 - % Normal Jan 26 te 17.5 ati 2016 6:45 distribut on in PM ion width source [Entitic data volume] by Automated count Leukocyte 4.8 - K/MM3 High No Jan 26 s 10.8 ati 2016 6:45 [#/volume on in PM [...] Abnorma No Jan 26 [Presen informa l inform2016 ce] in tion in tion in 6:35 [...] 26 nce of CLOUDY informa informa informa 2017 [...] 1+ NEG No Abnorma No Jan 26 [Pres informa l 2016 ce] in tion in tion in [...] No Jan 26 adotropin informati informati informati 2017 6:35 .beta on in on in on [...] - 0.2 K/MM3 Normal No November 01 inform2016 5:05 [#/volume on in PM ] in source Blood by data Automated count Basophils 0.1 - 2.0 % Normal No November 01 / informati [...] Blood data Hemoglobi 12.2 - g/dL No No November 01 n 16.2 informati informati [...] [Entitic mass] Erythrocy 31.8 - g/dl Normal No November 01 te mean 35.4 inform2016 5:05 corpuscul on in PM ar source hemoglobi data n concentra tion [Mass/vol ume] by Automated count Erythrocy 82.2 - fl Low No November 01 te mean 97.8 informati 2016 5:05 corpuscul on in PM ar volume source [Entitic data volume] by Automated count Monocytes 0.1 - 1.0 K/mm3 Normal No November 012016 5:05 [#/volume on in PM ] in source Blood by data Automated count Monocytes 1.7 - 9.3 % Normal No November 01 /100 inform2016 5:05 leukocyte on in PM s in source Blood by data Automated count Platelet 7.4 - fl Low No November 01 mean 10.4 inform2016 5:05 volume on in PM [Entitic source volume] data in Blood by Automated count Platelets 142 - 424 K/mm3 High No November 012016 5:05 [#/volume on in PM ] in source Blood data Erythrocy 4.2 - 5.4 M/mm3 High No November 01 paulo inform2016 5:05 [#/volume on in PM ] in source Amniotic data fluid Erythrocy 11.5 - % Normal No November 01 te 17.5 inform2016 5:05 distribut on in PM ion width [...] 5.0 gm/dL Low No November 01 [Mass/vol inform2016 5:05 ume] in on in PM Serum [...] Urea 7 - 18 mg/dL Normal No November 01 nitrogen informati 2016 5:05 [Mass/vol [...] 3.5 - 5.1 mmoL/L Normal No November 01 informati 2016 5:05 [Moles/vo on in PM lume] in source Serum or data Plasma Sodium 136 - 145 mmoL/L Normal No November 01 [Moles/vo informati 2016 5:05 lume] in on in PM Serum or source Plasma data Aspartate 15 - 37 U/L Low No November 01 informati 2016 5:05 aminotran on in PM sferase source [...] No No November 01 ial informa informa 2017 cells.s tion in tion in 3:55 PM [...] Abnorma No November 01 [Presen informa l inform2016 ce] in tion in tion in 3:55 [...] 0 - 0.2 K/MM3 Normal No October 23 informati 2016 6:14 [#/volume on in AM ] in source Blood by data Automated count Basophils 0.1 - 2.0 % Normal No May 16 /100 informati 2017 6:14 leukocyte on in AM s in source Blood by data Automated count Eosinophi 0.0 - 0.4 K/mm3 Normal No October 23 ls informati 2016 6:14 [#/volume on in AM [...] Low No October 23 n 16.2 informati 2016 6:14 [Mass/vol on in AM ume] in [...] Low No October 23 te mean informati 2016 6:14 corpuscul on in AM ar source hemoglobi data n [Entitic mass] Erythrocy 31.8 - g/dl Low October 23 te mean 35.4 informati 2016 6:14 corpuscul on in AM ar source hemoglobi data n concentra tion [Mass/vol ume] by Automated count Erythrocy 82.2 - fl Low October 23 te mean 97.8 informati 2016 6:14 corpuscul on in AM ar volume source [Entitic data volume] by Automated count Monocytes 0.1 - 1.0 K/mm3 Normal No October 23 informati 2016 6:14 [#/volume on in AM ] in source Blood by data Automated count Monocytes 1.7 - 9.3 % Normal No October 23 informati 2017 6:14 leukocyte on in AM [...] M/mm3 Normal No October 23 paulo informati 2016 6:14 [...] 3.5 - 5.1 mmoL/L Low No October 222016 6:08 [Moles/vo on in AM lume] in [...] - 2.0 % Normal No October 22 / informati 2016 6:08 leukocyte on in AM s in source Blood by data Automated count Eosinophi 0.0 - 0.4 K/mm3 Normal October 22 ls informati 2016 6:08 [#/volume on in AM ] in source Blood by data Automated count Eosinophi 0.1 - % Normal No October 22 ls/100 12.0 informati 2016 6:08 leukocyte on in AM s in source Blood by data Automated count Granulocy 1.8 - 7.8 K/mm3 High No October 22 paulo ati 2016 6:08 [#/volume on in AM ] in source Blood by data Automated count Granulocy 37.0 - % Normal No October 22 paulo/100 80.0 ati 2016 6:08 leukocyte on in AM s in source Blood by data Automated count Hematocri 37.0 - % Normal October 22 t [Volume 47.0 informati 2016 [...] % Normal No October 22 es informati 2016 [...] No October 22 te mean 97.8 informati 2016 6:08 corpuscul on in AM ar volume source [Entitic data volume] by Automated count Monocytes 0.1 - 1.0 K/mm3 Normal No October 22 informati 2016 6:08 [#/volume on in AM ] in source Blood by data Automated count Monocytes 1.7 - 9.3 % Normal No October 22 / informati 2016 6:08 leukocyte on in AM [...] 4.2 - 5.4 M/mm3 Normal No October 15 paulo informati 2017 6:08 [#/volume on in AM ] in source Amniotic data fluid Erythrocy 11.5 - % Normal No October 22 te 17.5 informati 2017 6:08 distribut on in AM ion width source [Entitic data volume] by Automated count Leukocyte 4.8 - K/MM3 High No October 22 s 10.8 informati 2016 6:08 [#/volume on in AM ] in source Blood data
== END 2017-03-25 13:41 | disposition home or self-care (01) ==
LOC: ER 12:59
DX: N20.0 Calculus of kidney (principal); Z87.442 Personal history of urinary calculi; I10 Essential (primary) hypertension; J45.909 Unspecified asthma, uncomplicated; F41.9 Anxiety disorder, unspecified; F32.9 Major depressive disorder, single episode, unspecified; F17.220 Nicotine dependence, chewing tobacco, uncomplicated; Z79.899 Other long term (current) drug therapy

== ENCOUNTER 2017-04-28 22:13 | Emergency (ER) | payer MEDICAID ==
[~2017-04-28] VITALS: Ht 154.9 cm; Wt 107.0 kg
[~2017-04-28 22:13] MED LIST changes: +HYDROCODONE/ACE1 TA5 PO; +PAXIL20 M1 PO; -PAXIL40 MG PO
[2017-04-28] MEDS ORDERED: HYDROXYZINE50 MG PO (22:33)
[2017-04-28] MEDS ORDERED: TRAZODONE100 MG PO (22:33)
--- NOTE | 2017-04-28 22:37 | Emergency Room Report ---
History of Present Illness Time Seen by [id number] Presenting Problem in Triage Pt arrived:Walked Presenting Problem:PAIN IN EPIGASTRIC AREA THAT IS GOING INTO BACK; HAS HAD FOR TWO DAYS; STABBING PAIN; NO TRAUMA/ HAS NOT EATEN ANYTHING PT IS AWARE OF THAT WOULD CAUSE PAIN; DOES NOT HAVE GALLBLADDER- FREQUENT PANCREATITIS Onset of symptoms date/time:04/26/17/ or onset unknown for:MEDICAL HX UNKNOWN Treatment Prior to Arrival: [employer] TE[employer] Provided by:LAYPERSON Sepsis Risk Assessment: Temp: 97.9 B/P: 150/80 MAP: 103 Pulse: 76 Resp: 18 Recent fever? Y Clinical Suspician of Infection? N Mental Status: 1 - Regular (Normal Baseline) Sepsis Risk:Low Sepsis Risk Have you (or family members/close friends) recently traveled outside the [place]? N If Yes, where/when: Have you had exposure to infectious disease within the past month? TB? Other? Specify: Source patient, RN notes reviewed, family, old records Exam Limitations no limitations Comment pt with upper abd pain with no melena or vomiting Cardiac Chest Pain Chest pain indicative of cardiac No Timing/Duration this evening Severity moderate ALLERGIES Coded Allergies: ketorolac (From TORADOL) (Mild, 01/28/16) aztreonam (NA-NAUSEA/VOMITING 01/28/16) cefaclor (01/28/16) codeine (BLEEDING OF EYES AND NOSE 02/19/17) doxycycline (01/28/16) levofloxacin (From LEVAQUIN) (01/28/16) midazolam (From VERSED) (01/28/16) ondansetron (From ZOFRAN ( HYDROCHLORIDE)) (01/28/16) sulfamethoxazole (From BACTRIM) (01/28/16) trimethoprim (From BACTRIM) (01/28/16) Home Medications Reported Medications HYDROCHLOROTHIAZIDE (Hydrochlorothiazide) 25 MG PO DAILY Albuterol Sulfate (Proair Hfa) 2 PUFF IH Q4HP PRN SHORTNESS OF BREATH PAROXETINE HCL (Paxil) 60 MG PO DAILY Ranitidine Hcl (Zantac) 150 MG PO PRN PRN GERD Hydroxyzine Hcl (Hydroxyzine) 50 MG PO TID Trazodone Hcl (Trazodone HCl) 100 MG PO QHS History Medical History General CAD? No Angina: No [place]: No Hypertension? Yes Hyperlipidemia? Yes CHF? No DVT? No PE? No COPD? No Asthma? Yes Anemia? No GERD? No Gastric ulcers? No GI Bleed? No Hernia? No Thyroid Problems? No Hypothyroidism? No CVA? No Seizures? No Diabetes? No Insulin Dependent: No Insulin Pump: No Home FSBS? No Renal Insuffiency? No End Stage Renal Disease? No UTI? Yes Stones? Yes BPH? No GB Disease: Yes Nephritic Syndrome? No Asplenia? No Hepatitis? No Sickle Cell Disease? No Arthritis? No Migraines? Yes Cataracts? No Glaucoma? No MRSA? No HIV? No TB? No Anxiety? Yes Depression? Yes Cancer? No More? 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 Respiratory denies cough, denies shortness of breath Cardiovascular denies chest pain, denies palpitations, denies syncope Gastrointestinal see HPI, abdominal pain, nausea, vomiting Genitourinary denies: dysuria, frequency, hesitancy, hematuria. Musculoskeletal denies back pain, denies joint pain, denies joint swelling, denies neck pain Skin denies rash Psychiatric/Neurological denies headache, denies seizure Physical Exam Vital Signs Vital Signs Date Time Temp Pulse Resp B/P Pulse O2 O2 Flow FiO2 Ox Delivery Rate 04/28 2222 97.9 76 18 150/80 100 - WBC >12,000 or <4,000 or 10% bands? 2 or more SIRS Criteria Met? B/P:150/80 MAP:103 Creatinine >2.0? UA output<0.5ml/kg/hr for 2 hrs? Platelet count >100,000? Lactate >2.0mmol/1? INR >1.2 or PTT > than 60 sec? Evidence of Organ Dysfunction? Provider documented clinical suspician of infection? N Sepsis Criteria Count: 1 Sepsis Risk: Low Sepsis Risk General Appearance no apparent distress Eye Exam - bilateral eye PERRL, bilateral eye EOMI Ear, Nose, Throat normal ENT inspection Neck supple Respiratory Status No: respiratory distress. Lung Sounds bilateral: lungs clear. 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 No Results/Orders Laboratory Tests 04/28/172114: Sodium 143, Potassium 3.4 L, Chloride 105, Carbon Dioxide 26, BUN 12, Creatinine 1.1 H, Estimated Creat Clear 125, Estimated GFR (MDRD) 58 L, Glucose 121 H, Calcium 8.6, Total Bilirubin 0.3, AST 14 L, ALT 28, Alkaline Phosphatase 75, Troponin I < 0.02, Total Protein 7.3, Albumin 3.3 L, Globulin 4.0 H, Albumin/Globulin Ratio 0.8 L, Amylase 29, Lipase 304, WBC 8.6, RBC 4.81 , Hgb 12.0 L, Hct 37.9, MCV 78.7 L, RDW 15.1, Plt Count 145, MPV 7.5, Gran % 73.0, Gran # 6.3, Lymphocytes % 20.4, Monocytes % 4.8, Eosinophils % 1.6, Basophils % 0.2, Lymphocytes # 1.7, Monocytes # 0.4, Eosinophils # 0.1, Basophils # 0.0, PUBS MCHC 31.6 L, MCH 24.9 L Current Medication Orders Sig/Marsha Start time Last Medication Dose Route Stop Time Status Admin Multi-Ingredient GI 0 .STK-MED ONE 04/28 2349 DC Drug PO Multi-Ingredient GI 60 ML ONCE ONE 04/28 2345 DC Drug PO 04/28 2346 Orders Procedure Date/time Status TROPONIN I 04/28 2228 Complete LIPASE 04/28 2228 Complete COMPLETE METABOLIC PANEL 04/28 2228 Complete CBC WITH AUTO DIFF 11/19 2228 Complete AMYLASE 11/19 2228 Complete Departure Departure Time of Disposition 2345 Disposition DC Home or Self Care(routine) Clinical Impression Primary Impression: Gastritis Qualifiers: Gastritis type: unspecified gastritis Chronicity: unspecified Gastritis bleeding: without bleeding Qualified Code: K29.70 - Gastritis, unspecified, without bleeding Condition STABLE Referrals Mai Krueger (Family) Patient Instructions DI for Abdominal Pain-Adult Additional Instructions see pcp for follow up Discharge Counseling Counseled pt/family regarding diagnosis, test results, follow up needs ED Critical Care [place] [id number]
--- OUTSIDE RECORDS SUMMARY | 2017-04-28 22:48 | External Medical Summary Rpt | CCD ---
Author Author , ROBERTO MEJIA Address Unknown Phone [email or web address] Care Team Providers Care Clothing Supervisor Name Role Phone Lynn HERRERA MD PSC, Lynn Unavailable Unavailable Kaelyn HERRERA MD PSC [facility], Unavailable Unavailable [facility] Un[facility] Unavailable Unavailable INC, [facility] Un[facility], [facility], [facility] Un[facility], [facility] Unavailable Unavailable [facility]INGS, [facility] Unavailable Unavailable [facility], [facility] Unavailable Unavailable EQUIPME, [facility] Unavailable Unavailable EMERGENCY PHYS, [facility]ERG[facility]Y [facility]YS [facility] Unavailable Unavailable EMERGENCY SERV, [facility]Y SERV [facility] Unavailable Unavailable PHYSICIAN SERVI, [facility] PHYSICIAN SERVI [facility], Unavailable Unavailable [facility] Purpose Continuity of Care Document - 10-01-2014 [...] OTHER DRUGS, MEDICAMENTS AND BIOLOGICAL SUBSTANCES STATUS N200 CALCULUS OF 03-08-2017 Lynn HERRERA KIDNEY PSC R809 PROTEINURIA 03-08-2017 Lynn HERRERA MD PSC UNSPECIFIED N132 HYDRONEPHRO 02-28-2017 [facility] [place] SIS W/RENAL RADIOLOGY & [facility]TRL CALCULOUS OBST N390 URINARY 02-28-2017 [facility] EMERGENCY INFECTION SERV SITE NOT SPECIFIED R1032 LEFT LOWER 02-28-2017 [facility] N EMERGENCY PAIN SERV R300 DYSURIA 02-28-2017 [facility] N EMERGENCY SERV [id number] ELEVATED 02-27-2017 [facility]OD [facility] CELL COUNT INC UNSPECIFIED N3090 CYSTITIS 02-27-2017 [facility] UNSPECIFIED PHYSICIANS, WITHOUT PLLC HEMATURIA R109 UNSPECIFIED 02-27-2017 [facility] ABDOMINAL [facility] PAIN INC R197 DIARRHEA 02-27-2017 [facility] UNSPECIFIED [facility] INC R5383 OTHER 02-27-2017 [facility] FATIGUE [facility] INC N12 TUBULO-INTE 02-26-2017 A Kaelyn COKER MD PSC NEPHRITIS NOT SPEC ACUTE/CHRON N3001 ACUTE 02-20-2017 A Kaelyn HERRERA CYSTITIS PSC WITH HEMATURIA K5730 DIVERTICULO 02-19-2017 [facility] LG MEDICAL INTEST W/O IMAGING ASS PERF/ABSC W/O BLEED N3000 ACUTE 02-19-2017 [facility] CYSTITIS [facility]IANS, WITHOUT PLLC HEMATURIA M5442 LUMBAGO 01-08-2017 [facility] WITH [facility]ICAL LEFT SIDE EQUIPME [id number] STRAIN 01-08-2017 [facility] MUSCLE HOME FASCIA & MEDICAL TENDON LOW EQUIPME BACK INITIAL I10 ESSENTIAL 12-22-2016 [facility] PRIMARY [facility] HYPERTENSIO INC N M545 LOW BACK 12-22-2016 [facility] Z720 TOBACCO USE 12-22-2016 [facility] INC N1330 UNSPECIFIED 11-01-2016 [facility] HYDRONEPHRO INC SIS N23 UNSPECIFIED 11-01-2016 [facility] RENAL [facility], COLIC PLLC R112 NAUSEA WITH 10-26-2016 [facility] VOMITING [facility] UNSPECIFIED HOLDINGS K921 MELENA 10-25-2016 A Kaelyn HERRERA MD PSC E58031 UNSPECIFIED 10-25-2016 A Kaelyn HERRERA OVARIAN PSC CYST UNSPECIFIED SIDE N83.209 UNSPECIFIED 10-23-2016 [facility] CYST, UNSPECIFIED SIDE R10.31 RIGHT LOWER 10-23-2016 [facility] PAIN R11.0 NAUSEA 10-23-2016 R19.7 DIARRHEA, 10-23-2016 UNSPECIFIED Z87.440 PERSONAL 10-23-2016 HISTORY OF URINARY (TRACT) INFECTIONS Z88.0 ALLERGY 10-23-2016 STATUS TO PENICILLIN Z88.2 ALLERGY 10-23-2016 STATUS TO SULFONAMIDE S STATUS Z88.5 ALLERGY 10-23-2016 STATUS TO NARCOTIC AGENT STATUS V70275 UNSPECIFIED 10-22-2016 A Kaelyn HERRERA OVARIAN PSC CYST RIGHT SIDE R1031 RIGHT LOWER 10-22-2016 A Kaelyn GARCIA MD PSC PAIN E785 HYPERLIPIDE 10-21-2016 [facility] UNSPECIFIED INC A28396 PERSONAL 10-21-2016 [facility] H[facility] OF [facility] URINARY INC TRACT INFECTIONS E66972 PERSONAL 10-21-2016 [facility] URINARY INC CALCULI L50.9 URTICARIA, 09-18-2016 UNSPECIFIED N30.00 ACUTE 09-18-2016 CYSTITIS WITHOUT HEMATURIA R10.32 LEFT LOWER 09-18-2016 [facility] PAIN Z72.0 TOBACCO USE 09-18-2016 R32 UNSPECIFIED 09-18-2016 A Kaelyn HERRERA URINARY PSC INCONTINENC E R1012 LEFT UPPER 09-12-2016 [facility] PAIN INC L509 URTICARIA 09-09-2016 [facility] UNSPECIFIED N EMERGENCY PHYS R110 NAUSEA 09-08-2016 [facility] INC R21 RASH AND 09-08-2016 [facility] OTHER PHYSICIANS, NONSPECIFIC PLLC SKIN ERUPTION Z791 FPC 09-08-2016 [facility] CURR [facility] NON-STEROID INC AL&ANTI-INF LAMMATORIES N00804 OTHER LONG 09-08-2016 [facility] TERM [facility] CURRENT INC DRUG THERAPY Z888 ALLERGY 09-08-2016 [facility] STATUS OTH [facility] RX MEDS & INC BIOLOG SUBSTANC STS M54.9 DORSALGIA, 08-20-2016 UNSPECIFIED R31.9 HEMATURIA, 08-20-2016 UNSPECIFIED B86 SCABIES 07-04-2016 [facility] R030 ELEVATED 06-03-2016 [facility] BLOOD-PRESS N EMERGENCY URE READING SERV WITHOUT DX HTN R0600 DYSPNEA 06-03-2016 [facility] [place] UNSPECIFIED RADIOLOGY R079 CHEST PAIN 06-03-2016 [facility] [place] UNSPECIFIED RADIOLOGY R1013 EPIGASTRIC 06-03-2016 [facility] PAIN N EMERGENCY SERV J40 BRONCHITIS 03-12-2016 A Kaelyn HECK MD PSC SPECIFIED ACUTE OR CHRONIC R05 COUGH 03-12-2016 A Kaelyn HERRERA MD PSC E860 DEHYDRATION 02-22-2016 [facility] R1011 RIGHT UPPER 02-22-2016 [facility], PAIN PLLC R1010 UPPER 02-21-2016 A Kaelyn HERRERA ABDOMINAL [facility] PAIN UNSPECIFIED R1110 VOMITING 02-21-2016 A Kaelyn HERRERA UNSPECIFIED [facility] E46621 OTHER 02-14-2016 A Kaelyn HERRERA INSTABILITY [facility] LEFT ANKLE H90873 PAIN IN 02-14-2016 A Kaelyn HERRERA LEFT KNEE [facility] C12693 PAIN IN 02-09-2016 A Kaelyn HERRERA RIGHT LEG [facility] J13647 PAIN IN 02-09-2016 A Kaelyn HERRERA LEFT LEG [facility] K59121 EFFUSION 02-07-2016 [facility] B80420 PAIN IN 02-07-2016 [facility] M7989 OTHER 02-07-2016 [facility] SPECIFIED MEDICAL SOFT TISSUE IMAGING ASS DISORDERS G8929 OTHER 01-26-2016 A Kaelyn HERRERA CHRONIC [facility] PAIN N289 DISORDER OF 01-09-2016 [facility] UNSPECIFIED R000 TACHYCARDIA 01-09-2016 [place] [facility] UNSPECIFIED [facility]OUNDATION N209 URINARY 12-31-2015 [facility] CALCULUS PH[facility]IANS, UNSPECIFIED PLLC F24103 PAIN IN 11-10-2015 [facility] RIGHT [facility] F32600Q SPRAIN 11-10-2015 [facility] UNSPEC PHYSICIANS, LIGAMENT PLLC RIGHT ANKLE INITIAL ENC H77998W UNSPECIFIED 11-10-2015 [facility] INJURY [facility]ICAL RIGHT ANKLE IMAGING ASS INITIAL ENCOUNTER R319 HEMATURIA 10-07-2015 [facility] UNSPECIFIED PHYSICIANS, PLLC N8320 UNSPECIFIED 08-05-2015 [facility] EMERGENCY CYSTS PHYS N8329 OTHER 08-05-2015 [facility] [place] [facility] CYSTS R1030 LOWER 08-04-2015 [facility] ABDOMINAL PHYSICIANS, PAIN PLLC UNSPECIFIED M549 DORSALGIA 06-26-2015 [facility] UNSPECIFIED [facility]YSICIANS, PLLC Z960 PRESENCE OF 06-16-2015 [facility] IMPLANTS HOSPITA N201 CALCULUS OF 05-20-2015 [facility], PLLC E669 OBESITY 05-17-2015 [facility] UNSPECIFIED N PHYSICIAN SERVI R6510 SYS INFLM 05-17-2015 [facility] RSPN SYND N PHYSICIAN NON-INF SERVI ORIG NO AC ORGN DYSF Z6841 BODY MASS 05-16-2015 [facility] INDEX BMI COMMUNTIY 40.0-44.9 HOSPITA ADULT J208 ACUTE 04-28-2015 [facility] BRONCHITIS PHYSICIANS, DUE TO PLLC OTHER SPEC ORGANISMS K859 ACUTE 04-05-2015 [facility] PANCREATITI N EMERGENCY S PHYS UNSPECIFIED R9431 ABNORMAL 04-05-2015 [facility] ELECTROCARD COMMUNTIY IOGRAM HOSPITA 5920 CALCULUS OF 02-26-2015 [facility] [place] [facility] 5990 URINARY 02-26-2015 [facility] TRACT N EMERGENCY INFECTION PHYS SITE NOT SPECIFIED 93862 NAUSEA 02-26-2015 [facility] ALONE COMMUNTIY HOSPITA 61001 DIARRHEA 02-26-2015 [facility]46 ABDOMINAL 02-26-2015 [facility] PAIN RIGHT N EMERGENCY LOWER PHYS [facility] V1301 PERSONAL 02-26-2015 [facility] HISTORY OF [facility] URINARY HOSPITA CALCULI V1582 PERS HX 02-26-2015 [facility] TOBACCO USE COMMUNTIY PRESENTING HOSPITA [facility] 4019 UNSPECIFIED 02-19-2015 [facility] HYPERTENSIO INC N 5275 SIALOLITHIA 02-19-2015 [facility] SIS PHYSICIANS, PLLC 6202 OTHER AND 02-14-2015 [facility] UNSPECIFIED PHYSICIANS, OVARIAN PLLC CYST 29168 ABDOMINAL 12-11-2014 [place] [facility] OTHER MEDICAL SPECIFIED IMAGING ASS SITE 10619 ABDOMINAL 12-10-2014 [facility] PAIN, LEFT [facility] LOWER INC QU[facility]ANT 0419 BACTERIAL 11-26-2014 [place] [facility] UNSPECIFIED FOUNDATION CCE & UNS SITE 46707 UNSPECIFIED 11-26-2014 [facility] PYELONEPHRI TIS V4579 OTHER 11-26-2014 [facility] ABSENCE OF ORGAN 05195 ABDOMINAL 11-21-2014 [facility] [place] PAIN, RADIOLOGY UNSPECIFIED SITE 25591 ABDOMINAL 11-20-2014 [facility] PAIN, N EMERGENCY PERIUMBILIC PHYS 19478 ABDOMINAL 11-16-2014 [place] [facility], MEDICAL EPIGASTRIC IMAGING ASS 39530 NAUSEA WITH 11-14-2014 [facility] 5589 OTH&UNSPEC 10-31-2014 [facility] NONINFECTIO PHYSICIANS, US PLLC GASTROENTER ITIS&COLITI S 7242 LUMBAGO 10-19-2014 [facility] P 48247 ABDOMINAL 10-19-2014 [facility] PAIN, LEFT [facility] P QU[facility] 5921 CALCULUS OF 10-01-2014 [facility] 7295 PAIN IN 10-01-2014 [facility] SOFT MEDICAL TISSUES OF IMAGING ASS LIMB 8449 SPRAIN&STRA 10-01-2014 [facility] IN OF [facility] HOS[facility] UNSPECIFIED INC SITE OF KNEE&LEG 9597 INJURY 10-01-2014 [facility] OTHER&UNSPE MEDICAL CIFIED KNEE IMAGING ASS LEG ANKLE&FOOT B86 SCABIES E86.0 DEHYDRATION F17.290 Nicotine dependence, other tobacco product, uncomplicat ed INX4870 J20.9 ACUTE BRONCHITIS, UNSPECIFIED K11.5 SIALOLITHIA SIS N12 TUBULO-INTE RSTITIAL NEPHRITIS, NOT SPCF ACUTE OR CHRONIC N13.2 Hydronephro sis with renal and ureteral calculous obstruction N20.0 CALCULUS OF KIDNEY N20.1 CALCULUS OF URETER N23 UNSPECIFIED RENAL COLIC N30.90 CYSTITIS, UNSPECIFIED WITHOUT HEMATURIA N83.201 UNSPECIFIED OVARIAN CYST, RIGHT SIDE R11.2 NAUSEA WITH VOMITING, UNSPECIFIED R21 RASH AND OTHER NONSPECIFIC SKIN ERUPTION R30.0 Dysuria S39.012A STRAIN OF MUSCLE, FASCIA AND TENDON OF LOWER BACK, INIT S96.911A STRAIN OF UNSP MSL/TND AT ANK/FT LEVEL, RIGHT FOOT, INIT T14.8 OTHER INJURY OF UNSPECIFIED BODY REGION 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 Z88.6 Allergy status to analgesic agent status Medications Na ND Rx Da Fi Fi Am Da Di Ph RX Ph St me C No te ll ll ou ys ag ar # ys at rm s nt no ma ic us Or Da si cy ia de te s n re d NC 65 10 11 30 10 00 EA Ac OM 16 -1 -[address] ti ET 20 3- 0- 00 00 SI ve CAN 52 20 20 50 DE ZI 11 17 17 53 NE 1 17 PH AR 25 MA CY MG OF TA CY BL NT ET HI AN A IN C HY 00 10 11 [address] 40 -1 -[address] ti OC 60 6- 0- 00 00 SI ve OD 12 20 20 50 DE ON 50 17 17 55 -A 5 27 PH CE AR TA MA PR CY NO PH OF N CY 10 NT -3 HI 25 AN A IN C OX 00 10 11 10 3 00 EA Ac YC 40 -1 -[address] ti OD 60 3- 0- 00 00 SI ve ON 51 20 20 50 DE E- 20 17 17 52 AC 5 97 PH ET AR AM MA IN CY OP HE OF N CY 5- NT 32 HI 5 AN A IN C PH 42 10 11 9. 3 00 EA Ac EN 93 -1 -[address] ti AZ 70 3- 0- 0 00 SI ve OP 70 20 20 50 DE YR 21 17 17 52 ID 0 98 PH IN AR E MA 20 CY 0 MG OF CY TA NT B HI AN A IN C NI 16 10 11 14 7 00 EA Ac TR 71 -1 -[address] ti OF 40 3- 0- 00 00 SI ve UR 43 20 20 50 DE AN 90 17 17 50 TO 1 64 PH IN AR MA MO CY NO -M OF CR CY NT 10 HI 0 AN MG A IN C TR 50 10 11 30 30 00 EA Ac AZ 11 -1 -[address] ti OD 10 0- 3- 00 00 SI ve ON 43 20 20 50 DE E 30 17 17 49 50 2 18 PH AR MG MA CY TA BL OF ET CY NT HI AN A IN C HY 00 10 11 [address] 18 -1 -[address] ti OX 50 0- 3- 00 00 SI ve YZ 67 20 20 50 DE IN 40 17 17 49 E 5 19 PH PA AR M MA 25 CY MG OF CY CA NT P HI AN A IN C PA 13 10 11 45 30 00 EA Ac RO 10 -1 -[address] ti XE 70 0- 3- 00 00 SI ve TI 15 20 20 49 DE NE 73 17 17 47 0 86 PH HC AR L MA 40 CY MG OF CY TA NT BL HI ET AN A IN C AM 66 09 [...] NT E HI AN A IN C NC 65 09 10 24 6 00 EA [...] AN 5 A IN C TA 65 05 06 [...] 05 06 20 10 00 EA Ac NC 71 -1 -[address] ti OF 40 8- 3- 00 00 SI ve LO 65 20 20 48 DE XA 20 17 17 80 CI 4 51 PH N AR HC MA L CY 50 0 OF MG CY NT TA HI B AN A IN C HY 00 05 [...] NT E HI AN A IN C NC 59 04 04 10 5 00 EA [...] 48 DE ZA 11 17 17 23 NC 0 48 PH IN AR E MA 10 CY MG OF CY TA NT BL HI ET AN A IN C NC 65 04 04 60 30 00 EA [...] 12 01 14 7 00 EA Ac NC 71 -3 -[address] ti [...] Order Detail nces retati t Range on Serum thyroperoxidase antibody assay (04-04-2017 13:42) Serum 2 = 9 0-34 complet thyrope 017 IU/mL ed roxidas 13:42 e antibod y assay Comment: Performed at: [facility] Comment: [address] [place], [place] [id number] Comment: Athletics Director: Blake Chow PhD, Phone: [phone] Serum or plasma thyroglobulin antibody a (04-04-2017 13:42) Serum 2 < 1.0 0.0-0.9 complet or 017 IU/mL ed plasma 13:42 thyrogl obulin antibod y a Comment: Thyroglobulin Antibody measured by Bao Kaden Comment: Methodology Comment: Performed at: [facility] Comment: [address], [place] [id number] Comment: Athletics Director: Blake Chow PhD, Phone: [phone] Antinuclear Antibodies, IFA (04-04-2017 13:42) Serum 2 = . complet nuclear 017 Negativ ed 13:42 e antibod y titer by immunof l Comment: Negative <1:80 Comment: Borderline 1:80 Comment: Positive >1:80 Comment: [facility]formed at: [facility] Comment: [address] [facility], [place], [place] [id number] Comment: Athletics Director: Blake Chow PhD, Phone: [phone] Serum or plasma thyroid stimulating horm (04-04-2017 13:42) Serum = 1.94 0.358-3 complet or 017 uIU/ml .740 ed plasma 13:42 thyroid stimula ting horm Serum or plasma free thyroxine (T4) bashir (04-04-2017 13:42) Serum = 1.08 0.76-1. complet or 017 ng/dL 46 ed plasma 13:42 free thyroxi ne (T4) bashir CRP (04-04-2017 13:42) CRP = 2.0 0.0-0.9 complet 017 MG/DL ed 13:42 CBC w auto diff (04-04-2017 13:42) Mean = 25.2 27-31.2 complet corpusc 017 pg ed ular 13:42 hemoglo bin ([facility]) determ Lymphoc = 19.8 10-50.0 complet yte 017 % ed count, 13:42 blood, automat ed Absolut = 2.2 0.7-4.5 complet e 017 K/mm3 ed lymphoc 13:42 yte count Blood = 13.4 12.2-16 complet hemoglo 017 g/dL .2 ed bin 13:42 measure ment (mass/v olum Blood = 41.6 37.0-47 complet hematoc 017 % .0 ed rit 13:42 (volume fractio n) Granulo = 72.2 37.0-80 complet cyte 017 % .0 ed percent 13:42 age Blood = 8.2 1.8-7.8 complet granulo 017 K/mm3 ed cytes 13:42 automat ed count (numb Automat = 2.5 % 0.1-12. complet ed 017 0 ed blood 13:42 eosinop hils/10 0 leukocy t Automat = 0.3 0.0-0.4 complet ed 017 K/mm3 ed blood 13:42 eosinop hil count Baso % = 0.3 % 0.1-2.0 complet 017 ed 13:42 Blood = 11.3 4.8-10. complet leukocy 017 K/MM3 8 ed paulo 13:42 count (number /volume ) Automat = 15.7 11.5-17 complet ed 017 % .5 ed erythro 13:42 cyte distrib ution width Red = 5.30 4.2-5.4 complet blood 017 M/mm3 ed cell 13:42 count Blood = 486 142-424 complet platele 017 K/mm3 ed t count 13:42 Automat = 7.5 7.4-10. complet ed 017 fl 4 ed blood 13:42 platele t mean volume jaspreet [place] % = 5.1 % 1.7-9.3 complet 017 ed 13:42 Absolut = 0.6 0.1-1.0 complet e 017 K/mm3 ed monocyt 13:42 e count Automat = 78.4 82.2-97 complet ed 017 fl .8 ed erythro 13:42 cyte mean corpusc ular v Automat = 32.2 31.8-35 complet ed 017 g/dl .4 ed erythro 13:42 cyte mean corpusc ular h Automat = 0.0 0-0.2 complet ed 017 K/MM3 ed blood 13:42 basophi l count (count/ vo Differential panel, method unspecified - (03-21-2017 00:30) [...] % 10-50 complet 017 ed 00:30 Manual 10-12-2 = 2 % 0-3 complet blood 017 [...] blood 00:30 platele t mean volume jaspreet [place] % = 7.1 % 1.7-9.3 complet 017 [...] SQUARE METERS Comment: If this patient is -[place]ai[place]ese, then multiply the Comment: result by 1.210. [...] sedimen t by Light microsc opy Erythro 03-21- 10-20 0 complet cytes 017 ed [Presen [...] 15:55 ce] in Urine by Test strip Encounters Encounter Start End Date Code Location Performer Type Date [facility] - 7 7 [facility] OUTPATIEN [facility] DIANNA - 7 7 [facility] OUTPATIEN [facility] DIANNA [facility] 7 7 [facility] OUTPATIEN [facility] DIANNA - 7 7 [facility] OUTPATIEN [facility] DIANNA - 7 7 [facility] DIANNA - 7 7 [facility] OUTPATIEN [facility] [place] - 7 7 N OUTPATIEN [facility] DIANNA - 7 7 [facility] OUTPATIEN [facility] [place] - 6 6 N OUTPATIEN [facility] DIANNA - 6 6 [facility]PATIEN [facility] DIANNA - 6 6 [facility]PATIEN [facility] DIANNA - 6 6 [facility] OUTPATIEN [facility] DIANNA - 6 6 [facility]PATIEN [facility] DIANNA - 6 6 [facility] DI[facility]NA - 6 6 [facility] OUTPATIEN [facility] DIANNA - 6 6 [facility]PATIEN [facility] [place] - 6 6 N [facility] 5 N [facility] - 5 5 [facility] - 5 5 [facility] - [facility] 5 [facility] DI[facility]NA - 5 5 [facility]PATI[facility] - 5 5 N [facility] - 5 5 N [facility] - 5 5 [facility]PATIEN [facility] DIANNA - 5 5 [facility]PATIEN [facility] DIANNA - 5 5 [facility] OUTPATIEN [facility] DIANNA - 5 5 [facility] OUTPATIEN [facility] - 5 5 Y [facility] DIANNA - 5 5 [facility] OUTPATIEN [facility] [place] - 5 5 N [facility] - 5 5 [facility]PATIEN [facility] DIANNA - 5 5 [facility] OUTPATIEN [facility] DIANNA - 5 5 [facility]PATIEN [facility] DIANNA - 5 5 [facility]
--- OUTSIDE RECORDS SUMMARY | 2017-04-28 22:48 | External Medical Summary Rpt | CCD ---
Author Author , ROBERTO MEJIA Address Unknown Phone [email or web address] Care Team Providers Care Behavioral Health Case Manager Name Role Phone Lynn HERRERA MD [facility], Lynn Unavailable Unavailable Kaelyn HERRERA MD PSC [facility], Unavailable Unavailable [facility] Un[facility], [facility] Unavailable Unavailable INC, [facility] Unavailable [facility]available HOSPITAL P, [facility], [facility], [facility] Unavailable Unavailable HOLDINGS, [facility] Unavailable Unavailable [facility], [facility] Unavailable Unavailable EQUIPME, [facility] Unavailable Unavailable EMERGENCY PHYS, [facility] Unavailable Unavailable EMERGENCY SERV, [facility] EMERGENCY SERV [facility] Unavailable Unavailable PHYSICIAN SERVI, [facility] PHYSICIAN SERVI [facility], Unavailable Unavailable [facility] Purpose Continuity of Care Document - 10-01-2014 [...] R300 DYSURIA 02-28-2017 [facility] [id number] ELEVATED 02-27-2017 [facility] BLOOD [facility] [...] CYSTITIS PSC WITH HEMATURIA K5730 DIVERTICULO 02-19-2017 [facility] LG MEDICAL INTEST W/O IMAGING ASS PERF/ABSC W/O BLEED N3000 ACUTE 02-19-2017 [facility] CY[facility], WITHOUT PLLC HEMATURIA M5442 LUMBAGO 01-08-2017 [facility] WITH HOME [facility]ICAL LEFT SIDE EQUIPME [id number] STRAIN 01-08-2017 [facility] MUSCLE [facility] FASCIA & MEDICAL TENDON LOW EQUIPME BACK INITIAL I10 ESSENTIAL 12-22-2016 [facility] HYPERTENSIO INC N M545 LOW BACK 12-22-2016 [facility] Z720 TOBACCO USE 12-22-2016 [facility] INC N1330 UNSPECIFIED 11-01-2016 [facility] HYDRONEPHRO INC SIS N23 UNSPECIFIED 11-01-2016 [facility], COLIC PLLC R112 NAUSEA WITH 10-26-2016 [facility] VOMITING [facility] UNSPECIFIED HOLDINGS K921 MELENA 10-25-2016 A Kaelyn HERRERA MD PSC G03252 UNSPECIFIED 10-25-2016 A Kaelyn HERRERA OVARIAN PSC CYST UNSPECIFIED SIDE N83.209 UNSPECIFIED 10-23-2016 O[facility]IAN CYST, UNSPECIFIED SIDE R10.31 RIGHT LOWER 10-23-2016 [facility] PAIN R11.0 NAUSEA 10-23-2016 R19.7 DIARRHEA, 10-23-2016 UNSPECIFIED Z87.440 PERSONAL 10-23-2016 HISTORY OF URINARY (TRACT) INFECTIONS Z88.0 ALLERGY 10-23-2016 STATUS TO PENICILLIN Z88.2 ALLERGY 10-23-2016 STATUS TO SULFONAMIDE S STATUS Z88.5 ALLERGY 10-23-2016 STATUS TO NARCOTIC AGENT STATUS F95931 UNSPECIFIED 10-22-2016 A Kaelyn HERRERA OVARIAN PSC CYST RIGHT SIDE R1031 RIGHT LOWER 10-22-2016 A Kaelyn GARCIA MD PSC PAIN E785 HYPERLIPIDE 10-21-2016 [facility] UNSPECIFIED INC O66141 PERSONAL 10-21-2016 [facility] HISTORY OF [facility] URINARY INC TRACT INFECTIONS L80533 PERSONAL 10-21-2016 [facility] [...] OTHER PHYSICIANS, NONSPECIFIC PLLC SKIN ERUPTION Z791 PENITENTIARY 09-08-2016 [facility] CURR [facility] NON-STEROID INC AL&ANTI-INF LAMMATORIES Z19012 OTHER LONG 09-08-2016 [facility] TERM [facility] CURRENT INC DRUG THERAPY Z888 ALLERGY 09-08-2016 [facility] STATUS OTH [facility] RX MEDS & INC BIOLOG SUBSTANC STS M54.9 DORSALGIA, 08-20-2016 UNSPECIFIED R31.9 HEMATURIA, 08-20-2016 UNSPECIFIED B86 SCABIES 07-04-2016 [facility] R030 ELEVATED 06-03-2016 [facility] BLOOD-PRESS N EMERGENCY URE READING SERV WITHOUT DX HTN R0600 DYSPNEA 06-03-2016 [facility] [place] [facility]PECIF[facility] RAD[facility]OLOGY R079 CHEST PAIN 06-03-2016 [facility] [place] UNSPECIFIED RADIOLOGY R1013 EPIGASTRIC 06-03-2016 [facility] PAIN N EMERGENCY SERV J40 BRONCHITIS 03-12-2016 A Kaelyn HECK MD PSC SPECIFIED ACUTE OR CHRONIC R05 COUGH 03-12-2016 A Kaelyn HERRERA MD PSC E860 DEHYDRATION 02-22-2016 [facility] R1011 RIGHT UPPER 02-22-2016 [facility], PAIN PLLC R1010 UPPER 02-21-2016 A Kaelyn HERRERA ABDOMINAL [facility] PAIN UNSPECIFIED R1110 VOMITING 02-21-2016 A Kaelyn HERRERA UNSPECIFIED [facility] H47333 OTHER 02-14-2016 A Kaelyn HERRERA INSTABILITY [facility] LEFT ANKLE Y91947 PAIN IN 02-14-2016 A Kaelyn HERRERA LEFT KNEE [facility] E17962 PAIN IN 02-09-2016 A Kaelyn HERRERA RIGHT LEG [facility] I30984 PAIN IN 02-09-2016 A Kaelyn HERRERA LEFT LEG [facility] F80317 EFFUSION 02-07-2016 [facility] C70480 PAIN IN 02-07-2016 [place] [facility] M7989 OTHER 02-07-2016 [place] SPECIFIED MEDICAL SOFT TISSUE IMAGING ASS DISORDERS G8929 OTHER 01-26-2016 A Kaelyn HERRERA CHRONIC [facility] PAIN N289 DISORDER OF 01-09-2016 [facility] UNSPECIFIED R000 TACHYCARDIA 01-09-2016 [facility] UNSPECIFIED [facility]OUNDATION N209 URINARY 12-31-2015 [facility] CALCULUS [facility], UNSPECIFIED PLLC S12955 PAIN IN 11-10-2015 [place] [facility] [id number] SPRAIN 11-10-2015 [facility] UNSPEC PH[facility]IANS, LIGAMENT PLLC RIGHT ANKLE INITIAL ENC I20553P UNSPECIFIED 11-10-2015 [place] INJURY [facility]ICAL RIGHT ANKLE IMAGING ASS INITIAL ENCOUNTER R319 HEMATURIA 10-07-2015 [facility] UNSPECIFIED [facility]ICIANS, PLLC N8320 UNSPECIFIED 08-05-2015 [facility] CYSTS PHYS N8329 OTHER 08-05-2015 [facility] [place] [facility] CYSTS R1030 LOWER 08-04-2015 [facility] ABDOMINAL [facility]ICIANS, PAIN PLLC UNSPECIFIED M549 DORSALGIA 06-26-2015 [facility] UNSPECIFIED PHYSICIANS, PLLC Z960 PRESENCE OF 06-16-2015 [facility] IMPLANTS HOSPITA N201 CALCULUS OF 05-20-2015 [facility]TER [facility] PLLC E669 OBESITY 05-17-2015 [facility] UNSPECIFIED N PHYSICIAN SERVI R6510 SYS INFLM 05-17-2015 [facility] RSPN SYND N PHYSICIAN NON-INF SERVI ORIG NO AC ORGN DYSF Z6841 BODY MASS 05-16-2015 [facility] INDEX BMI COMMUNTIY 40.0-44.9 HOSPITA ADULT J208 ACUTE 04-28-2015 [facility] BRONCHITIS PHYSICIANS, DUE TO PLLC OTHER SPEC ORGANISMS K859 ACUTE 04-05-2015 [facility] PANCREATITI N EMERGENCY S PHYS UNSPECIFIED R9431 ABNORMAL 04-05-2015 [facility] ELECTROCARD [facility]UN[facility] IOGRAM HOSPITA 5920 CALCULUS OF 02-26-2015 [facility] 5990 URINARY 02-26-2015 [facility] TRACT N EMERGENCY INFECTION PHYS SITE NOT SPECIFIED 07384 NAUSEA 02-26-2015 [facility] ALONE COMMUNTIY HOSPITA 24703 DIARRHEA 02-26-2015 [facility]97 ABDOMINAL 02-26-2015 [facility] PAIN RIGHT N EMERGENCY LOWER PHYS QU[facility]ANT V1301 PERSONAL 02-26-2015 [facility] URINARY HOSPITA CALCULI V1582 PERS HX 02-26-2015 [facility] TOBACCO USE COMMUNTIY PRESENTING HOSPITA [facility] 4019 UNSPECIFIED 02-19-2015 [facility] ESSENTIAL [facility] HYPERTENSIO INC N 5275 SIALOLITHIA 02-19-2015 [facility] SIS [facility]IANS, PLLC 6202 OTHER AND 02-14-2015 [facility] UNSPECIFIED PHYSICIANS, OVARIAN PLLC CYST 47629 ABDOMINAL 12-11-2014 [place] [facility] OTHER MEDICAL SPECIFIED IMAGING ASS SITE 44865 ABDOMINAL 12-10-2014 [facility] PAIN, LEFT [facility] LOWER INC QUADRANT 0419 BACTERIAL 11-26-2014 [place] [facility] UNSPECIFIED FOUNDATION CCE & UNS SITE 74081 UNSPECIFIED 11-26-2014 [facility] PYELONEPHRI TIS V4579 OTHER 11-26-2014 [facility] ABSENCE OF ORGAN 74205 ABDOMINAL 11-21-2014 [facility] [place] [facility], RADIOLOGY UNSPECIFIED SITE 57813 ABDOMINAL 11-20-2014 [facility] PAIN, N EMERGENCY PERIUMBILIC PHYS 81251 ABDOMINAL 11-16-2014 [place] [facility], MEDICAL EPIGASTRIC IMAGING ASS 88430 NAUSEA WITH 11-14-2014 [facility]89 OTH&UNSPEC 10-31-2014 [facility] NONINFECTIO PHYSICIANS, US PLLC GASTROENTER ITIS&COLITI S 7242 LUMBAGO 10-19-2014 [facility] P 59814 ABDOMINAL 10-19-2014 [facility] PAIN, LEFT [facility] P QUADRANT 5921 CALCULUS OF 10-01-2014 [facility] 7295 PAIN IN 10-01-2014 [place] SOFT MEDICAL TISSUES OF IMAGING ASS LIMB 8449 SPRAIN&STRA 10-01-2014 [facility] IN OF MEM HOS[facility] UNSPECIFIED INC SITE OF KNEE&LEG 9597 INJURY 10-01-2014 [place] OTHER&UNSPE MEDICAL CIFIED KNEE IMAGING ASS LEG ANKLE&FOOT B86 SCABIES E86.0 DEHYDRATION F17.290 Nicotine dependence, other tobacco product, uncomplicat ed LVQ7913 J20.9 ACUTE BRONCHITIS, UNSPECIFIED K11.5 SIALOLITHIA SIS [...] ia de te s n re d ID 65 10 11 30 10 00 EA [...] 5 27 PH CE AR TA MA CT CY NO PH OF N CY 10 [...] NT E HI AN A IN C ID 65 09 10 24 6 00 EA [...] 05 06 20 10 00 EA Ac ID 71 [id number] -[address] ti [...] NT E HI AN A IN C ID 59 04 04 10 5 00 EA [...] 48 DE ZA 11 17 17 23 ID 0 48 PH IN AR E MA 10 CY MG OF CY TA NT BL HI ET AN A IN C ID 65 04 04 60 30 00 EA [...] 12 01 14 7 00 EA Ac ID 71 -3 -[address] ti [...] e antibod y assay Comment: Performed at: [facility] Comment: [id number], [place] [id number] Comment: It Director: Blake Chow PhD, Phone: [phone] Serum or plasma thyroglobulin antibody a (04-04-2017 13:42) Serum 2 < 1.0 0.0-0.9 complet or 017 IU/mL ed plasma 13:42 thyrogl obulin antibod y a Comment: Thyroglobulin Antibody measured by Bao Kaden Comment: Methodology Comment: Performed at: [facility] Comment: [id number], [place] [id number] Comment: It Director: Blake Chow PhD, Phone: [phone] Antinuclear Antibodies, IFA (04-04-2017 13:42) Serum 2 = . complet nuclear 017 Negativ ed 13:42 e antibod y titer by immunof l Comment: Negative <1:80 Comment: Borderline 1:80 Comment: Positive >1:80 Comment: [facility] Comment: [id number], [place], [place] [id number] Comment: It Director: Blake Chow PhD, Phone: [phone] Serum or plasma thyroid stimulating horm (04-04-2017 [...] blood 13:42 platele t mean volume jaspreet Mcdonald % = 5.1 % 1.7-9.3 complet 017 [...] blood 00:30 platele t mean volume jaspreet Mcdonald % = 7.1 % 1.7-9.3 complet 017 [...] SQUARE METERS Comment: If this patient is -Tajik, then multiply the Comment: result by 1.210. [...] End Date Code Location Performer Type Date [facility] DI[facility] - 7 7 [facility] OUTPATIEN [facility] DIANNA - 7 7 [facility] DIANNA - 7 7 [facility] DI[facility]NA - 7 7 [facility] DIANNA - 7 7 [facility] DIANNA - 7 7 [facility] [place] - [address] [facility] DIANNA - 7 7 [facility] [place] - [address] [facility] DIANNA - 6 6 [facility] OUTPATIEN [facility] DIANNA - 6 6 [facility] OUTPATIEN [facility] DIANNA - 6 6 [facility] OUTPATIEN [facility] DIANNA - 6 6 [facility] OUTPATIEN [facility] DIANNA - 6 6 [facility] DIANNA - 6 6 [facility] OUTPATIEN [facility] DIANNA - 6 6 [facility]PATIEN [facility] [place] - 6 6 N [facility] [place] [facility] 5 5 N [facility] - 5 5 [facility] [place] - 5 5 [facility] 5 [facility] DIANNA - 5 5 [facility]PATI[facility] 5 5 N [facility] 5 5 N [facility] - 5 5 [facility] OUTPATIEN [facility] DIANNA - 5 5 [facility] OUTPATIEN [facility] DIANNA - 5 5 [facility] OUTPATIEN [facility] DIANNA - 5 5 [facility] OUTPATIEN [facility] - [address] [facility] DIANNA - 5 5 [facility]PATIEN [facility] [place] - 5 5 N [facility] - 5 5 [facility] OUTPATIEN [facility] DIANNA - 5 5 [facility] OUTPATIEN [facility] DIANNA - 5 5 [facility] OUTPATIEN [facility] DIANNA - 5 5 [facility]
--- OUTSIDE RECORDS SUMMARY | 2017-04-28 22:51 | External Medical Summary Rpt | CCD ---
Author Author , ROBERTO Calvert ROBERTO Address Unknown Phone [email or web address] Care Team Providers Care Scow Hand Name Role Phone A Kaelyn HERRERA MD PSC, Lynn Unavailable Unavailable Kaelyn HERRERA MD PSC [facility], Unavailable Unavailable [facility] Unavailable Unavailable HOSPITA, [facility] Un[facility] Un[facility] INC, [facility] Unavailable [facility]available HOSPITAL P, [facility] Unavailable Unavailable IMAGING ASS, [facility] Un[facility], [facility] Unavailable Unavailable HOLDINGS, [facility], Unavailable Unavailable PLLC, [facility] Unavailable Unavailable EQUIPME, [facility] Unavailable Unavailable EMERGENCY PHYS, [facility]YS [facility] Unavailable Unavailable EMERGENCY SERV, [facility] EMERGENCY SERV [facility] Unavailable Unavailable PHYSICIAN SERVI, [facility], Unavailable Unavailable [facility] Purpose Continuity of Care Document - 10-01-2014 through 2016 Problems Code Diagnosis DOS Provider Status N200 CALCULUS OF 03-08-2017 A Kaelyn HERRERA KIDNEY PSC R809 PROTEINURIA 03-08-2017 Lynn HERRERA MD PSC UNSPECIFIED N132 HYDRONEPHRO 02-28-2017 [facility] [place] [facility] W/RENAL RADIOLOGY & [facility] CALCULOUS OBST N390 URINARY 02-28-2017 [facility] TRACT N EMERGENCY INFECTION SERV SITE NOT SPECIFIED R1032 LEFT LOWER 02-28-2017 [facility] QUADRANT N EMERGENCY PAIN SERV R300 DYSURIA 02-28-2017 [facility] N EMERGENCY SERV Z48372 ELEVATED 02-27-2017 [facility] CELL COUNT INC UNSPECIFIED N3090 CYSTITIS 02-27-2017 [facility] UNSPECIFIED PHYSICIANS, WITHOUT PLLC HEMATURIA R109 UNSPECIFIED 02-27-2017 [facility]BDOMINAL [facility] PAIN INC R197 DIARRHEA 02-27-2017 [facility] UNSPECIFIED [facility] INC R5383 OTHER 02-27-2017 [facility] INC N12 TUBULO-INTE 02-26-2017 Lynn COKER MD PSC NEPHRITIS NOT SPEC ACUTE/CHRON N3001 ACUTE 02-20-2017 A Kaelyn HERRERA CYSTITIS PSC WITH HEMATURIA K5730 DIVERTICULO 02-19-2017 [facility] LG MEDICAL INTEST W/O IMAGING ASS PERF/ABSC W/O BLEED N3000 ACUTE 02-19-2017 [facility] CYSTITIS PHYSICIANS, WITHOUT PLLC HEMATURIA M5442 LUMBAGO 01-08-2017 [facility] WITH HOME SCIATICA MEDICAL LEFT SIDE EQUIPME [id number] STRAIN 01-08-2017 [facility] MUSCLE HOME FASCIA & MEDICAL TENDON LOW EQUIPME BACK INITIAL I10 ESSENTIAL 12-22-2016 [facility] HYPERTENSIO INC N M545 LOW BACK 12-22-2016 [place] PAIN MEDICAL IMAGING ASS Z720 TOBACCO USE 12-22-2016 [facility] INC N1330 UNSPECIFIED 11-01-2016 [facility] HYDRONEPHRO INC SIS N23 UNSPECIFIED 11-01-2016 [facility] RENAL PHYSICIANS, COLIC PLLC R112 NAUSEA WITH 10-26-2016 [facility] VOMIT[facility] ROS[facility] UNSPECIFIED HOLDINGS K921 MELENA 10-25-2016 A Kaelyn HERRERA MD PSC P14233 UNSPECIFIED 10-25-2016 A Kaelyn HERRERA OVARIAN PSC CYST UNSPECIFIED SIDE R87887 UNSPECIFIED 10-22-2016 A Kaelyn HERRERA OVARIAN PSC CYST RIGHT SIDE R1031 RIGHT LOWER 10-22-2016 A Kaelyn GARCIA MD PSC PAIN E785 HYPERLIPIDE 10-21-2016 [facility] UNSPECIFIED INC Z84362 PERSONAL 10-21-2016 [facility] URINARY INC TRACT INFECTIONS M46175 PERSONAL 10-21-2016 [facility] URINARY INC CALCULI R32 UNSPECIFIED 09-18-2016 A Kaelyn HERRERA URINARY PSC INCONTINENC E R1012 LEFT UPPER 09-12-2016 [facility] PAIN INC L509 URTICARIA 09-09-2016 [facility] UNSPECIFIED N EMERGENCY PHYS R110 NAUSEA 09-08-2016 [facility] INC R21 RASH AND 09-08-2016 [facility] OTHER PHYSICIANS, NONSPECIFIC PLLC SKIN ERUPTION Z791 SHELTER 09-08-2016 [facility] CURR [facility] NON-STEROID INC AL&ANTI-INF LAMMATORIES S27119 OTHER LONG 09-08-2016 [facility] TERM [facility] CURRENT INC DRUG THERAPY Z888 ALLERGY 09-08-2016 [facility] STATUS OTH [facility] RX MEDS & INC BIOLOG SUBSTANC STS B86 SCABIES 07-04-2016 [facility], PLLC R030 ELEVATED 06-03-2016 [facility] BLOOD-PRESS N EMERGENCY URE READING SERV WITHOUT [...] PAIN UNSPECIFIED R1110 VOMITING 02-21-2016 A Kaelyn GONZALEZ MD PSC I55407 OTHER 02-14-2016 A Kaelyn HERRERA INSTABILITY PSC LEFT ANKLE V91106 PAIN IN 02-14-2016 A Kaelyn HERRERA LEFT KNEE PSC C16387 PAIN IN 02-09-2016 A Kaelyn HERRERA RIGHT LEG PSC A65301 PAIN IN 02-09-2016 A Kaelyn HERRERA LEFT LEG PSC X16267 EFFUSION 02-07-2016 [place] LEFT ANKLE MEDICAL IMAGING ASS Q41330 PAIN IN 02-07-2016 [place] LEFT ANKLE MEDICAL IMAGING ASS M7989 OTHER 02-07-2016 [place] SPECIFIED MEDICAL SOFT TISSUE IMAGING ASS DISORDERS G8929 OTHER 01-26-2016 A Kaelyn HERRERA CHRONIC PSC PAIN N289 DISORDER OF 01-09-2016 [place] [facility] UNSPECIFIED R000 TACHYCARDIA 01-09-2016 [place] [facility] UNSPECIFIED FOUNDATION N209 URINARY 12-31-2015 [facility] CALCULUS PHYSICIANS, UNSPECIFIED PLLC Q68051 PAIN IN 11-10-2015 [place] RIGHT ANKLE MEDICAL IMAGING ASS [id number] SPRAIN 11-10-2015 [facility] UNSPEC PHYSICIANS, LIGAMENT PLLC RIGHT ANKLE INITIAL ENC K63206W UNSPECIFIED 11-10-2015 [place] INJURY MEDICAL RIGHT ANKLE IMAGING ASS INITIAL ENCOUNTER R319 HEMATURIA 10-07-2015 [facility] UNSPECIFIED PHYSICIANS, PLLC N8320 UNSPECIFIED 08-05-2015 [facility] OVARIAN N EMERGENCY CYSTS PHYS N8329 OTHER 08-05-2015 [facility] [place] [facility] RADIOLOG[facility] CYSTS R1030 LOWER 08-04-2015 [facility] ABDOMINAL PHYSICIANS, PAIN PLLC UNSPECIFIED M549 DORSALGIA 06-26-2015 [facility] UNSPECIFIED PHYSICIANS, PLLC Z960 PRESENCE OF 06-16-2015 [facility] UROGENITAL COMMUNTIY IMPLANTS HOSPITA N201 CALCULUS OF 05-20-2015 [facility] URETER PHYSICIANS, PLLC E669 OBESITY 05-17-2015 [facility] UNSPECIFIED N PHYSICIAN SERVI R6510 SYS INFLM 05-17-2015 [facility] NON-INF SERVI ORIG NO AC ORGN DYSF Z6841 BODY MASS 05-16-2015 [facility] INDEX BMI COMMUNTIY 40.0-44.9 HOSPITA ADULT J208 ACUTE 04-28-2015 [facility] BRONCHITIS PHYSICIANS, DUE TO PLLC OTHER SPEC ORGANISMS K859 ACUTE 04-05-2015 [facility] PANCREATITI N EMERGENCY S PHYS UNSPECIFIED R9431 ABNORMAL 04-05-2015 [facility] ELECTROCARD COMMUNTIY IOGRAM HOSPITA 5920 CALCULUS OF 02-26-2015 [facility] [place] [facility] 5990 URINARY 02-26-2015 [facility] TRACT N EMERGENCY INFECTION PHYS SITE NOT SPECIFIED 19874 NAUSEA 02-26-2015 [facility] ALONE COMMUNTIY HOSPITA 82858 DIARRHEA 02-26-2015 [facility] COMMUNTIY HOSPITA 76122 ABDOMINAL 02-26-2015 [facility] RIGHT N EMERGENCY LOWER PHYS QUADRANT V1301 PERSONAL 02-26-2015 [facility] HISTORY OF COMMUNTIY URINARY HOSPITA CALCULI V1582 PERS HX 02-26-2015 [facility] TOBACCO USE COMMUNTIY PRESENTING HOSPITA [facility] 4019 UNSPECIFIED 02-19-2015 [facility] ESSENTIAL [facility] HYPERTENSIO INC N 5275 SIALOLITHIA 02-19-2015 [facility] SIS PHYSICIANS, PLLC 6202 OTHER AND 02-14-2015 [facility] UNSPECIFIED PHYSICIANS, OVARIAN PLLC CYST 50580 ABDOMINAL 12-11-2014 [place] [facility] OTHER MEDICAL SPECIFIED IMAGING ASS SITE 42348 ABDOMINAL 12-10-2014 [facility] PAIN, LEFT [facility] LOWER INC QUADRANT 0419 BACTERIAL 11-26-2014 [place] [facility] UNSPECIFIED FOUNDATION CCE & UNS SITE 91331 UNSPECIFIED 11-26-2014 [facility] PYELONEPHRI TIS V4579 OTHER 11-26-2014 [facility] ABSENCE OF ORGAN 71578 ABDOMINAL 11-21-2014 [facility] [place] PA[place], RADIOLOGY UNSPECIFIED SITE 62397 ABDOMINAL 11-20-2014 [facility] PAIN, N EMERGENCY PERIUMBILIC PHYS 31725 ABDOMINAL 11-16-2014 [place] PAIN, MEDICAL EPIGASTRIC IMAGING ASS 45425 NAUSEA WITH 11-14-2014 [facility] VOMITING COMMUNTIY HOSPITA 5589 OTH&UNSPEC 10-31-2014 [facility] NONINFECTIO PHYSICIANS, US [facility] GASTROENTER ITIS&COLITI S 7242 LUMBAGO 10-19-2014 [facility] P 91018 ABDOMINAL 10-19-2014 [place] PAIN, LEFT [facility] P QUADRANT 5921 CALCULUS OF 10-01-2014 [place] [facility] 7295 PAIN IN 10-01-2014 [place] SOFT MEDICAL TISSUES OF IMAGING ASS LIMB 8449 SPRAIN&STRA 10-01-2014 [place] IN OF MEM HOSP UNSPECIFIED INC SITE OF KNEE&LEG 9597 INJURY 10-01-2014 [place] OTHER&UNSPE MEDICAL CIFIED KNEE IMAGING ASS LEG ANKLE&FOOT Medications Na ND Rx Da Fi Fi Am Da Di Ph RX Ph St me C No te ll ll ou ys ag ar # ys at rm s nt no ma ic us Or Da si cy ia de te s n re d OX 00 10 11 10 3 00 [...] HI 0 AN MG A IN C OR 65 10 11 30 10 00 EA [...] 5 27 PH CE AR TA MA NC CY NO PH OF N CY 10 NT -3 HI 25 AN A IN C TR 50 10 11 [...] NT E HI AN A IN C OR 65 09 10 24 6 00 EA [...] 05 06 20 10 00 EA Ac OR 71 -1 -[address] ti [...] HI 0 AN MG A IN C OR 59 04 04 10 5 00 EA [...] 48 DE ZA 11 17 17 23 OR 0 48 PH IN AR E MA 10 CY MG OF CY TA NT BL HI ET AN A IN C OR 65 04 04 60 30 00 EA [...] 12 01 14 7 00 EA Ac OR 71 -3 -[address] ti [...] NT ET HI AN A IN C Encounters Encounter Start End Date Code Location Performer Type Date [facility] DI[facility]NA - 7 7 [facility] - 7 7 [facility] - 7 7 [facility] - 7 7 [facility] - 7 7 [facility] 7 7 [facility] - 6 6 [facility] - 6 6 [facility] - 6 6 [facility] - 6 6 [facility] - 6 6 [facility] - 6 6 [facility] - 6 6 [facility] - 6 6 [facility] [place] - 6 6 N OUTPATIEN COMMUNTIY [facility] [place] - 5 5 N OUTPATIEN COMMUNTIY [facility] DIANNA - 5 5 MEM H[facility] OUTPATIEN [facility] [place] - 5 5 N OUTPATIEN [facility] DIANNA - 5 5 [facility]PATIEN [facility] - 5 5 [facility] [place] - 5 5 N OUTPATIEN COMMUNTIY [facility] [place] - 5 5 N OUTPATIEN COMMUNTIY [facility] DIANNA - 5 5 MEM H[facility] OUTPATIEN [facility] DI[facility] - 5 5 MEM [facility] OUTPATIEN [facility] DI[facility] - 5 5 MEM H[facility] OUTPATIEN [facility] - 5 5 [facility]PATIEN [facility] - [address] [facility] DIANNA - 5 5 [facility]PATIEN [facility] [place] - 5 5 N OUTPATIEN COMMUNY [facility] DIANNA - 5 5 MEM H[facility] OUTPATIEN [facility] DI[facility] - 5 5 [facility] OUTPATIEN [facility] DI[facility] - 5 5 [facility] OUTPATIEN [facility] DI[facility] - 5 5 MEM H[facility] OUTPATIEN [facility]
--- OUTSIDE RECORDS SUMMARY | 2017-04-28 22:51 | External Medical Summary Rpt | CCD ---
Author Author , ROBERTO Calvert RBOERTO Address Unknown Phone [email or web address] Care Team Providers Care Certified Coding Specialist Name Role Phone A Kaelyn HERRERA MD PSC, Lynn Unavailable Unavailable Kaelyn HERRERA MD PSC [facility], Unavailable Unavailable [facility] Unavailable Unavailable HOSPITA, [facility] HOSPITA [facility] Un[facility] Un[facility] INC, [facility] Unavailable [facility]available HOSPITAL P, [facility] Unavailable Unavailable IMAGING ASS, [facility] Unavailable Unavailable [facility], [facility] Unavailable Unavailable HOLDINGS, [facility], Unavailable Unavailable PLLC, [facility] Unavailable Unavailable EQUIPME, [facility] Unavailable Unavailable EMERGENCY PHYS, [facility] Unavailable Unavailable EMERGENCY SERV, [facility]GENC[facility] Unavailable Unavailable PHYSICIAN SERVI, [facility], Unavailable Unavailable [facility] Purpose Continuity of Care Document [...] R300 DYSURIA 02-28-2017 [facility] N EMERGENCY SERV U85910 ELEVATED 02-27-2017 [facility]LOOD [facility] [...] CYSTITIS PSC WITH HEMATURIA K5730 DIVERTICULO 02-19-2017 [facility] LG MEDICAL INTEST W/O IMAGING ASS PERF/ABSC W/O BLEED N3000 ACUTE 02-19-2017 [facility] CYSTITIS PHYSICIANS, WITHOUT PLLC HEMATURIA M5442 LUMBAGO 01-08-2017 [facility] WITH HOME SCIATICA MEDICAL LEFT SIDE EQUIPME K43569P STRAIN 01-08-2017 [facility] MUSCLE HOME FASCIA & MEDICAL TENDON LOW EQUIPME BACK INITIAL I10 ESSENTIAL 12-22-2016 [facility] HYPERTENSIO INC N M545 LOW BACK 12-22-2016 [place] PAIN MEDICAL IMAGING ASS Z720 TOBACCO USE 12-22-2016 [facility] INC N1330 UNSPECIFIED 11-01-2016 [facility] HYDRONEPHRO INC SIS N23 UNSPECIFIED 11-01-2016 [facility] RENAL PHYSICIANS, COLIC PLLC R112 NAUSEA WITH 10-26-2016 [facility] VOMIT[facility] UNSPECIFIED HOLDINGS K921 MELENA 10-25-2016 A Kaelyn HERRERA MD PSC G48883 UNSPECIFIED 10-25-2016 A Kaelyn HERRERA OVARIAN PSC CYST UNSPECIFIED SIDE G47372 UNSPECIFIED 10-22-2016 A Kaelyn HERRERA OVARIAN PSC CYST RIGHT SIDE R1031 RIGHT LOWER 10-22-2016 A Kaelyn GARCIA MD PSC PAIN E785 HYPERLIPIDE 10-21-2016 [facility] UNSPECIFIED INC H57090 PERSONAL 10-21-2016 [facility] URINARY INC TRACT INFECTIONS N56287 PERSONAL 10-21-2016 [facility] URINARY INC CALCULI R32 UNSPECIFIED 09-18-2016 A Kaelyn HERRERA URINARY PSC INCONTINENC E R1012 LEFT UPPER 09-12-2016 [facility] PAIN INC L509 URTICARIA 09-09-2016 [facility] UNSPECIFIED N EMERGENCY PHYS R110 NAUSEA 09-08-2016 [facility] INC R21 RASH AND 09-08-2016 [facility] OTHER PHYSICIANS, NONSPECIFIC PLLC SKIN ERUPTION Z791 USP 09-08-2016 [facility]R [facility] NON-STEROID INC AL&ANTI-INF LAMMATORIES M10289 OTHER LONG 09-08-2016 [facility] TERM [facility] CURRENT INC DRUG THERAPY Z888 ALLERGY 09-08-2016 [facility] STATUS OTH [facility] RX MEDS & INC BIOLOG SUBSTANC STS B86 SCABIES 07-04-2016 [facility], PLLC R030 ELEVATED 06-03-2016 [facility] BLOOD-PRESS N EMERGENCY URE READING SERV [...] VOMITING 02-21-2016 A Kaelyn GONZALEZ MD PSC C99167 OTHER 02-14-2016 A Kaelyn HERRERA INSTABILITY PSC LEFT ANKLE L41640 PAIN IN 02-14-2016 A Kaelyn HERREAR LEFT KNEE PSC W49259 PAIN IN 02-09-2016 A Kaelyn HERRERA RIGHT LEG PSC N75168 PAIN IN 02-09-2016 A Kaelyn HERRERA LEFT LEG PSC U55828 EFFUSION 02-07-2016 [place] LEFT ANKLE [facility]ICAL IMAGING ASS X21704 PAIN IN 02-07-2016 [place] LEFT ANKLE MEDICAL IMAGING ASS M7989 OTHER 02-07-2016 [place] SPECIFIED MEDICAL SOFT TISSUE IMAGING ASS DISORDERS G8929 OTHER 01-26-2016 A Kaelyn HERRERA CHRONIC PSC PAIN N289 DISORDER OF 01-09-2016 [place] [facility] UNSPECIFIED R000 TACHYCARDIA 01-09-2016 [place] [facility] UNSPECIFIED FOUNDATION N209 URINARY 12-31-2015 [facility] CALCULUS PHYSICIANS, UNSPECIFIED PLLC Y60933 PAIN IN 11-10-2015 [place] RIGHT ANKLE MEDICAL IMAGING ASS Q18673V SPRAIN 11-10-2015 [facility] UNSPEC PHYSICIANS, LIGAMENT PLLC RIGHT ANKLE INITIAL ENC N17517I UNSPECIFIED 11-10-2015 [place] INJURY MEDICAL RIGHT ANKLE IMAGING ASS INITIAL ENCOUNTER R319 HEMATURIA 10-07-2015 [facility] UNSPECIFIED PHYSICIANS, PLLC N8320 UNSPECIFIED 08-05-2015 [facility] OVARIAN N EMERGENCY CYSTS PHYS N8329 OTHER 08-05-2015 [facility] [place] [facility] CYSTS R1030 LOWER 08-04-2015 [facility] ABDOMINAL PHYSICIANS, PAIN PLLC UNSPECIFIED M549 DORSALGIA 06-26-2015 [facility] UNSPECIFIED PHYSICIANS, PLLC Z960 PRESENCE OF 06-16-2015 [facility] COMMUNTIY IMPLANTS HOSPITA N201 CALCULUS OF 05-20-2015 [facility] URETER PHYSICIANS, PLLC E669 OBESITY 05-17-2015 [facility] UNSPECIFIED N PHYSICIAN SERVI R6510 SYS INFLM 05-17-2015 [facility] NON-INF SERVI ORIG NO AC ORGN DYSF Z6841 BODY MASS 05-16-2015 [facility] INDEX BMI COMMUNTIY 40.0-44.9 HOSPITA ADULT J208 ACUTE 04-28-2015 [facility] BRONCHITIS PHYSICIANS, DUE TO PLLC OTHER SPEC ORGANISMS K859 ACUTE 04-05-2015 [facility] PANCREATITI N EMERGENCY S PHYS UNSPECIFIED R9431 ABNORMAL 04-05-2015 [facility] ELECTROCARD COMMUNTIY IOGRAM HOSPITA 5920 CAL[facility]ULUS [facility] 02-26-[facility] [place] [facility] 5990 URINARY 02-26-2015 [facility] TRACT N EMERGENCY INFECTION PHYS SITE NOT SPECIFIED 60139 NAUSEA 02-26-2015 [facility] ALONE COMMUNTIY HOSPITA 08006 DIARRHEA 02-26-2015 [facility] COMMUNTIY HOSPITA 79530 ABDOMINAL 02-26-2015 [facility] RIGHT N EMERGENCY LOWER PHYS QUADRANT V1301 PERSONAL 02-26-2015 [facility] HISTORY OF COMMUNTIY URINARY HOSPITA CALCULI V1582 PERS HX 02-26-2015 [facility] TOBACCO USE COMMUNTIY PRESENTING HOSPITA [facility]ALTH 4019 UNSPECIFIED 02-19-2015 [facility] ESSENTIAL [facility] HYPERTENSIO INC N 5275 SIALOLITHIA 02-19-2015 [facility] SIS PHYSICIANS, PLLC 6202 OTHER AND 02-14-2015 [facility] UNSPECIFIED PHYSICIANS, OVARIAN PLLC CYST 62248 ABDOMINAL 12-11-2014 [place] [facility] OTHER MEDICAL SPECIFIED IMAGING ASS SITE 81332 ABDOMINAL 12-10-2014 [facility] PAIN, LEFT [facility] LOWER INC QUADRANT 0419 BACTERIAL 11-26-2014 [place] [facility] UNSPECIFIED FOUNDATION CCE & UNS SITE 83236 UNSPECIFIED 11-26-2014 [facility] PYELONEPHRI TIS V4579 OTHER 11-26-2014 [facility] ABSENCE OF ORGAN 20178 ABDOMINAL 11-21-2014 [facility] [place] PA[place], RADIOLOGY UNSPECIFIED SITE 74581 ABDOMINAL 11-20-2014 [facility] PA[facility], N EMERGENCY PERIUMBILIC PHYS 39749 ABDOMINAL 11-16-2014 [place] PAIN, MEDICAL EPIGASTRIC IMAGING ASS 29607 NAUSEA WITH 11-14-2014 [facility] [place] VOMITING COMMUNTIY HOSPITA 5589 OTH&UNSPEC 10-31-2014 [facility] NONINFECTIO PHYSICIANS, US [facility] GASTROENTER ITIS&COLITI S 7242 LUMBAGO 10-19-2014 [facility] P 80718 ABDOMINAL 10-19-2014 [place] PAIN, LEFT [facility] P QUADRANT 5921 CALCULUS OF 10-01-2014 [place] [facility] 7295 PAIN IN 10-01-2014 [place] SOFT MEDICAL TISSUES OF IMAGING ASS LIMB 8449 SPRAIN&STRA 10-01-2014 [place] IN OF MEM HOSP UNSPECIFIED INC SITE OF KNEE&LEG 9597 INJURY 10-01-2014 [place] OTHER&UNSPE MEDICAL CIFIED KNEE IMAGING ASS LEG [...] HI 0 AN MG A IN C CA 65 10 11 30 10 00 EA [...] 5 27 PH CE AR TA MA NE CY NO PH OF N CY 10 [...] NT E HI AN A IN C CA 65 09 10 24 6 00 EA [...] 5 14 PH CE AR TA MA NE CY NO PH OF EN CY NT [...] 5 68 PH CE AR TA MA NE CY NO PH OF EN CY NT [...] BL HI ET AN A IN C NE 00 07 08 30 30 00 EA [...] 5 89 PH CE AR TA MA NE CY NO PH OF EN CY NT 5- HI 32 AN 5 A IN C CI 16 05 06 20 10 00 EA Ac CA 71 -1 -[address] ti [...] 5 33 PH CE AR TA MA NE CY NO PH OF EN CY NT [...] HI 0 AN MG A IN C CA 59 04 04 10 5 00 EA [...] 48 DE ZA 11 17 17 23 CA 0 48 PH IN AR E MA 10 CY MG OF CY TA NT BL HI ET AN A IN C CA 65 04 04 60 30 00 EA [...] 12 01 14 7 00 EA Ac CA 71 -3 -[address] ti [...] 47 DE RA 30 16 17 07 NE 5 45 PH DE AR MA 10 [...] End Date Code Location Performer Type Date [facility] DIANNA - 7 7 [facility] - 7 7 [facility] DIANNA - 7 7 [facility] DI[facility] - 7 7 [facility] DI[facility] - 7 7 [facility] DI[facility] - 7 7 [facility] - 7 7 N [facility] DIANNA [facility] 7 7 [facility] - 6 6 N [facility]PAT[facility]OD [facility] DIANNA - 6 6 [facility] DI[facility] - 6 6 [facility] - 6 6 [facility] - 6 6 [facility] - 6 6 [facility] - 6 6 [facility] - 6 6 [facility] [place] [facility] [address] [facility] [place] - [address] [facility] DIANNA - 5 5 MEM H[facility]P OUTPATIEN [facility] [place] - 5 5 N OUTPATIEN [facility] DIANNA [facility] 5 5 MEM HOSP OUTPATIEN [facility] DIANNA [facility] 5 5 [facility] H[facility] [place] [facility] [address] [facility] [place] [facility] [address] [facility] 5 5 [facility] - 5 5 [facility] - 5 5 [facility] 5 5 [facility] - 5 5 Y [facility] - 5 5 [facility] - [address] [facility] 5 5 [facility] - 5 5 [facility] - 5 5 [facility] - 5 5 [facility]
--- OUTSIDE RECORDS SUMMARY | 2017-04-28 22:52 | External Medical Summary Rpt | CCD ---
Demographics Preferred Language Polish Marital Status Unknown Voodoo Affiliation Unknown Race Unknown Ethnic Group Unknown Author Author , ROBERTO MEJIA Address Unknown Phone Immunization No patient found.
--- OUTSIDE RECORDS SUMMARY | 2017-04-28 22:52 | External Medical Summary Rpt | CCD ---
Demographics Preferred Language Mongolian Marital Status Unknown Jew Affiliation Unknown Race Unknown Ethnic Group Unknown Author Author , ROBERTO MEJIA Address Unknown Phone Immunization No patient found.
--- OUTSIDE RECORDS SUMMARY | 2017-04-28 22:53 | External Medical Summary Rpt ---
Author Author [employer], [employer] Organization [employer] Address Unknown Phone Unavailable Results CRP Observa Value Referen Units Interpr Notes Date tion ce etation Range CRP 0.0 - 0.9 MG/DL High No Apr 04 informati 2016 1:42 on in PM source data Thyroxine (T4) free [Mass/volume] in Serum or Plasma Observa Value Referen Units Interpr Notes Date tion ce etation Range Thyroxine 0.76 - ng/dL Normal No Apr 04 (T4) 1.46 informati 2016 1:42 free on in PM [Mass/vol source ume] in data Serum or Plasma Thyrotropin [Units/volume] in Serum or Plasma Observa Value Referen Units Interpr Notes Date tion ce etation Range Thyrotrop 0.358 - uIU/ml Normal No Apr 04 in 3.740 informati 2016 1:42 [Units/vo on in PM lume] in source Serum or data Plasma CBC W Auto Differential panel in Blood Observa Value Referen Units Interpr Notes Date tion ce etation Range Basophils 0 - 0.2 K/MM3 Normal No Apr 04 inform2016 1:42 [#/volume on in PM ] in source Blood by data Automated count Basophils 0.1 - 2.0 % Normal No Apr 04 informati 2016 1:42 leukocyte on in PM s in source Blood by data Automated count Eosinophi 0.0 - 0.4 K/mm3 Normal No Apr 04 ls informati 2016 1:42 [#/volume on in PM ] in source Blood by data Automated count Eosinophi 0.1 - % Normal No Apr 04 ls/100 12.0 informati 2016 1:42 leukocyte on in PM s in source Blood by data Automated count Granulocy 1.8 - 7.8 K/mm3 High No Apr 04 paulo informati 2016 1:42 [#/volume on in PM ] in source Blood by data Automated count Granulocy 37.0 - % Normal No Apr 04 paulo/100 80.0 informati 2016 1:42 leukocyte on in PM s in source Blood by data Automated count Hematocri 37.0 - % Normal No Apr 04 t [Volume 47.0 informati 2016 1:42 on in PM Fraction] source of Blood data Hemoglobi 12.2 - g/dL Normal No Apr 04 n 16.2 informati 2016 1:42 [Mass/vol on in PM ume] in source Blood data Lymphocyt 0.7 - 4.5 K/mm3 Normal No Apr 04 es informati 2016 1:42 [#/volume on in PM ] in source Unspecifi data ed specimen by Automated count Lymphocyt 10 - 50.0 % Normal No Apr 04 es informati 2016 1:42 [#/volume on in PM ] in source Unspecifi data ed specimen by Automated count Erythrocy 27 - 31.2 pg Low No Apr 04 te mean informati 2016 1:42 corpuscul on in PM ar source hemoglobi data n [Entitic mass] Erythrocy 31.8 - g/dl Normal No Apr 04 te mean 35.4 informati 2016 1:42 corpuscul on in PM ar source hemoglobi data n concentra tion [Mass/vol ume] by Automated count Erythrocy 82.2 - fl Low No Apr 04 te mean 97.8 informati 2016 1:42 corpuscul on in PM ar volume source [Entitic data volume] by Automated count Monocytes 0.1 - 1.0 K/mm3 Normal No Apr 04 informati 2016 1:42 [#/volume on in PM ] in source Blood by data Automated count Monocytes 1.7 - 9.3 % Normal No Apr 04 /100 informati 2016 1:42 leukocyte on in PM s in source Blood by data Automated count Platelet 7.4 - fl Normal No Apr 04 mean 10.4 informati 2017 1:42 volume on in PM [Entitic source volume] data in Blood by Automated count Platelets 142 - 424 K/mm3 High No Apr 04 informati 2016 1:42 [#/volume on in PM ] in source Blood data Erythrocy 4.2 - 5.4 M/mm3 Normal No Apr 04 paulo informati 2016 1:42 [#/volume on in PM ] in source Amniotic data fluid Erythrocy 11.5 - % Normal No Apr 04 te 17.5 informati 2016 1:42 distribut on in PM ion width source [Entitic data volume] by Automated count Leukocyte 4.8 - K/MM3 High No Apr 04 s 10.8 informati 2016 1:42 [#/volume on in PM ] in source Blood data CBC W Auto Differential panel in Blood Observa Value Referen Units Interpr Notes Date tion ce etation Range Basophils 0 - 0.2 K/MM3 High No Mar 212016 [#/volume on in 12:30 AM ] in source Blood by data Automated count Basophils 0.1 - 2.0 % High No Mar 212016 leukocyte on in 12:30 AM s in source Blood by data Automated count Eosinophi 0.0 - 0.4 K/mm3 Normal No Mar 21 ls inform2016 [#/volume on in 12:30 AM ] in source Blood by data Automated count Eosinophi 0.1 - % Normal No Mar 21 ls/100 12.0 inform2016 leukocyte on in 12:30 AM s in source Blood by data Automated count Granulocy 1.8 - 7.8 K/mm3 High No Mar 21 paulo 2016 [#/volume on in 12:30 AM ] [...] g/dL Normal No Mar 21 n 16.2 2016 [Mass/vol on in 12:30 AM ume] in source Blood data Lymphocyt 0.7 - 4.5 K/mm3 Normal No Mar 21 es 2016 [#/volume on in 12:30 AM ] in source Unspecifi data ed specimen by Automated count Lymphocyt 10 - 50.0 % Normal No Mar 21 es inform2016 [#/volume on in 12:30 AM ] in source Unspecifi data ed specimen by Automated count Erythrocy 27 - 31.2 pg Low No Mar 21 te mean 2016 corpuscul on in 12:30 AM ar source hemoglobi data n [Entitic mass] Erythrocy 31.8 - g/dl Low No Mar 21 te mean 35.4 2016 corpuscul on in 12:30 AM ar source [...] fl High No Mar 21 mean 10.4 2016 volume on in 12:30 AM [Entitic source volume] data in Blood by Automated count Platelets 142 - 424 K/mm3 High No Mar 212016 [#/volume on in 12:30 AM ] in source Blood data Erythrocy 4.2 - 5.4 M/mm3 Normal No Mar 21 paulo 2016 [#/volume on in 12:30 AM ] [...] No Mar 21 tosis informa informa informa informa 2016 [Presen tion [...] 2 - 9 % Normal No Mar 212016 leukocyte on [...] Carbon 21.0 - mmoL/L Normal No Mar 21 dioxide, 32.0 informati 2016 total on in 12:30 AM [Moles/vo source lume] in data Serum or Plasma Creatinin 0.55 - mg/dL Normal No Oct 12 e 1.02 inform2016 [Mass/vol on in 12:30 AM ume] in source Serum or data Plasma Creatinin 50 - 200 ML/MIN Normal No Mar 21 e renal informati 2017 clearance on in 12:30 AM source predicted data by Cockcroft -Gault formula Estimated 59- ML/MIN No REFERENCE Mar 21 informati RANGE: 2017 glomerula on in >60 12:30 AM r source ML/MIN/1. filtratio data 73 SQUARE n rate METERSIf (GF this patient is -A merican, then multiply theresult by 1.210. Globulin 1.3 - 3.2 gm/dL High No Mar 21 [Mass/vol informati 2016 ume] in on in 12:30 AM Serum source data Glucose 74 - 106 mg/dL High No Mar 21 [Mass/vol informati 2016 ume] in on in 12:30 AM Serum or source Plasma data Potassium 3.5 - 5.1 mmoL/L Normal No Mar 212016 [Moles/vo on in 12:30 AM lume] in source Serum or data Plasma Sodium 136 - 145 mmoL/L Normal No Mar 21 [Moles/vo informati 2016 lume] in on in 12:30 AM Serum or source Plasma data Aspartate 15 - 37 U/L Low No Mar 212016 aminotran on in 12:30 AM sferase source [Enzymati data c activity/ volume] in Serum or Plasma Alanine 12 - 78 U/L Normal No Mar 21 aminotran informati 2016 sferase on in 12:30 AM [Enzymati source c data activity/ volume] in Serum or Plasma Protein 6.4 - 8.2 gm/dL Normal No Mar 21 [Mass/vol informati 2016 ume] in on in 12:30 AM Serum or source Plasma data Choriogonadotropin.beta subunit [Units] in 24 hour Urine Observa Value Referen Units Interpr Notes Date tion ce etation Range Choriogon NEG No No No Mar 21 adotropin informati informati informati 2016 .beta on [...] No Mar 21 gravity 1.030 informati informati 2017 of Urine on in on in 12:24 [...] No Sep 12 E informa informa informa 2017 [Presen tion [...] mmoL/L Normal No Jan 26 [Moles/vo informati 2017 6:45 lume] in on in PM Serum [...] 15 - 37 U/L Normal No Jan 262016 6:45 aminotran on in PM sferase source [...] Normal No Jan 26 ls/100 12.0 informati 2017 6:45 leukocyte on in PM s in source Blood by data Automated count Granulocy 1.8 - 7.8 K/mm3 High No Jan 26 paulo informati 2016 6:45 [#/volume on in PM ] in source Blood by data Automated count Granulocy 37.0 - % Normal No Jan 26 paulo/100 80.0 informati 2017 6:45 leukocyte on in PM [...] K/mm3 Normal No Jan 26 es informati 2016 6:45 [#/volume on in PM ] in source Unspecifi data ed specimen by Automated count Lymphocyt 10 - 50.0 % Normal No Jan 26 es informati 2016 6:45 [#/volume on in PM ] in source Unspecifi data ed specimen by Automated count Erythrocy 27 - 31.2 pg Low No Jan 26 te mean informati 2016 6:45 corpuscul on in PM ar source hemoglobi data n [Entitic mass] Erythrocy 31.8 - g/dl Normal Jan 26 te mean 35.4 informati 2016 6:45 corpuscul on in PM ar source hemoglobi data n concentra tion [Mass/vol ume] by Automated count Erythrocy 82.2 - fl Low No Jan 26 te mean 97.8 informati 2016 6:45 corpuscul on in PM ar volume source [Entitic data volume] by Automated count Monocytes 0.1 - 1.0 K/mm3 Normal No Jan 26 informati 2016 6:45 [#/volume on in PM ] in source Blood by data Automated count Monocytes 1.7 - 9.3 % Normal No Jan 26 /100 informati 2016 6:45 leukocyte on in PM s in source Blood by data Automated count Platelet 7.4 - fl Normal No Jan 26 mean 10.4 ati 2016 6:45 volume on in PM [Entitic source volume] data in Blood by Automated count Platelets 142 - 424 K/mm3 High No Jan 26 informati 2016 6:45 [#/volume on in PM ] in source Blood data Erythrocy 4.2 - 5.4 M/mm3 High No Jan 26 paulo informati 2016 6:45 [#/volume on in PM ] in source Amniotic data fluid Erythrocy 11.5 - % Normal Jan 26 te 17.5 informati 2016 6:45 distribut on in PM ion width source [Entitic data volume] by Automated count Leukocyte 4.8 - K/MM3 High No Jan 26 s 10.8 informati 2016 6:45 [#/volume on in PM [...] No No Jan 26 ial informa informa 2016 cells.s tion in tion in 6:35 PM [...] Abnorma No Jan 26 [Pres informa l inform2016 ce] in tion in [...] No Dec 22 adotropin informati informati informati 2017 .beta on in on in on in 11:25 PM subunit source source source [Units] data data data in 24 hour Urine CBC W Auto Differential panel in Blood Observa Value Referen Units Interpr Notes Date tion ce etation Range Basophils 0 - 0.2 K/MM3 Normal No November 012016 5:05 [#/volume on in PM ] in source Blood by data Automated count Basophils 0.1 - 2.0 % Normal No November 01 informati 2016 5:05 leukocyte on in PM [...] Normal No November 01 te mean 35.4 informati 2016 5:05 corpuscul on in PM ar source hemoglobi data n concentra tion [Mass/vol ume] by Automated count Erythrocy 82.2 - fl Low No November 01 te mean 97.8 informati 2016 5:05 corpuscul on in PM ar volume source [Entitic data volume] by Automated count Monocytes 0.1 - 1.0 K/mm3 Normal No November 01 inform2016 5:05 [#/volume on in PM ] in source Blood by data Automated count Monocytes 1.7 - 9.3 % Normal No November 01 /100 informati 2016 5:05 leukocyte on in PM s in source Blood by data Automated count Platelet 7.4 - fl Low No November 01 mean 10.4 informati 2016 5:05 [...] gm/dL Normal No November 01 [Mass/vol informati 2017 5:05 ume] in on in PM Serum or source Plasma data Choriogonadotropin.beta subunit [Units] in 24 hour Urine Observa Value Referen Units Interpr Notes Date tion ce etation Range Choriogon NEG No No No November 01 adotropin informati informati informati 2017 3:55 .beta on in on in on [...] No Normal No November 01 gravity 1.030 ati informati 2016 3:55 of Urine on in [...] 0 - 0.2 K/MM3 Normal No October 23ati 2016 6:14 [#/volume on in AM ] in source Blood by data Automated count Basophils 0.1 - 2.0 % Normal No October 23 /100 informati 2016 6:14 leukocyte on in AM s in source Blood by data Automated count Eosinophi 0.0 - 0.4 K/mm3 Normal No October 23 ls ati 2016 6:14 [#/volume on in AM ] in source Blood by data Automated count Eosinophi 0.1 - % Normal No October 23 ls/100 12.0 informati 2017 6:14 leukocyte on in AM s in source Blood by data Automated count Granulocy 1.8 - 7.8 K/mm3 High No October 23 paulo informati 2017 6:14 [#/volume on in AM ] in source Blood by data Automated count Granulocy 37.0 - % Normal No October 23 paulo/100 80.0 informati 2017 6:14 leukocyte on in AM s in source Blood by data Automated count Hematocri 37.0 - % Low No October 23 t [Volume 47.0 informati 2017 6:14 on in AM Fraction] source of [...] 1.0 K/mm3 Normal No October 23 informati 2017 6:14 [#/volume on in AM [...] Normal No October 22 e renal informati 2017 6:08 clearance on in AM source predicted [...] - 5.1 mmoL/L Low No October 22 informati 2016 6:08 [Moles/vo on in AM lume] in source Serum or data Plasma Sodium 136 - 145 mmoL/L Normal No October 15 [Moles/vo informati 2016 6:08 lume] in on [...] K/mm3 Normal No October 22 ls informati 2016 6:08 [#/volume on in AM ] in source Blood by data Automated count Eosinophi 0.1 - % Normal No October 22 ls/100 12.0 informati 2016 6:08 leukocyte on in AM s in source Blood by data Automated count Granulocy 1.8 - 7.8 K/mm3 High No October 22 paulo informati 2016 6:08 [#/volume on in AM [...] mass] Erythrocy 31.8 - g/dl Low October 22 te mean 35.4 informati 2016 [...] % Normal No October 22 / informati 2017 6:08 leukocyte on in AM s in source Blood by data Automated count Platelet 7.4 - fl Low No October 22 mean 10.4 informati 2017 6:08 volume on in AM [Entitic source volume] data in Blood by Automated count Platelets 142 - 424 K/mm3 Normal No October 22 informati 2016 6:08 [#/volume on in AM ] in source Blood data Erythrocy 4.2 - 5.4 M/mm3 Normal No October 22 paulo informati 2016 6:08 [#/volume on in AM [...]
[2017-04-28 23:23] LABS: LYMPH # 1.7 K/mm3 (0.7-4.5); LYMPH % 20.4 % (10-50.0)
[2017-04-28 23:39] LABS: BUN 12 mg/dL (7-18)
[2017-04-28 23:41] LABS: GFR (ESTIMATED) 58 ML/MIN (59-)
[2017-04-28 23:57] VITALS: BP 153/92
== END 2017-04-28 23:58 | disposition home or self-care (01) ==
LOC: ER 22:13
PROVIDERS: Emergency Medicine
DX: K29.70 Gastritis, unspecified, without bleeding (principal); I10 Essential (primary) hypertension; J45.909 Unspecified asthma, uncomplicated; F41.8 Other specified anxiety disorders

== ENCOUNTER → 2017-04-30 | Outpatient (CLI) | payer MEDICAID ==
[~2017-04-30] MED LIST changes: +HYDROXYZINE50 MG PO; +TRAZODONE100 MG PO
[2017-04-30 14:45] LABS: HEMOGLOBIN 12.9 g/dL (12.2-16.2); LYMPH # 2.2 K/mm3 (0.7-4.5); LYMPH % 18.5 % (10-50.0)
[2017-04-30 14:46] LABS: BUN 11 mg/dL (7-18)
[2017-04-30 14:55] LABS: GFR (ESTIMATED) 58 ML/MIN (59-)
== END ==
LOC: LAB 13:54
PROVIDERS: Nurse Practitioner Family
DX: K92.1 Melena (principal)

== ENCOUNTER → 2017-05-27 | Outpatient (CLI) | payer MEDICAID ==
[~2017-05-27] MED LIST changes: +AMITRIPTYLINE H10 M1 PO
--- NOTE | 2017-05-27 20:56 | RADIOLOGY REPORT PS360 ---
KNEE-3 VIEWS-LT Ordering Physician: Mai PEREZ Patient Age: 31 years: Female HISTORY: LEFT KNEE INJURY TECHNIQUE: 3 views left knee COMPARISON : None FINDINGS Left knee is intact with no fracture. No dislocation. Joint spaces well-maintained. No effusion. Bones well mineralized. IMPRESSION: Negative left knee
== END ==
LOC: RAD 14:02
DX: S89.92XA Unspecified injury of left lower leg, initial encounter (principal)